=== PATIENT | female | born 1945 | race Caucasian/White ===

== ENCOUNTER 2016-09-15 13:12 | Emergency (ER) | payer OTHER, BC ==
[2016-09-15] MEDS ORDERED: LEVOFLOXACIN 500 MG TABLET (FP) PO ONE (13:29)
[2016-09-15 13:30] VITALS: BP 114/67; PULSE 97; TEMP 98.4; BMI 28.5
--- NOTE | 2016-09-15 13:35 | PDOC ---
History of Present Illness - General Chief Complaint: Pain Stated Complaint: DIFFICULT WALKING Time Seen by Provider: 09/15/16 13:25 History Source: Patient, Family Exam Limitations: No Limitations - History of Present Illness Initial Comments: 09/15/16 13:30 71-year-old female with history of coronary disease, hyperlipidemia, diabetes that is poorly controlled presents with paresthesias of bilateral feet, worse on left than right. Patient states that she has developed some tingling sensations and noticed they were particular worsen the toes. She denies injuries or cuts. States that her sugars lately been 200-300 and her doctor recommended that she see an weight clerk for likely insulin. Her hemoglobin A1c was approximately 11. Patient has started noticing paresthesias sensations in her distal feet. She wanted to see if there was any other thing to be concerned about given it had worsened the last 3 days. Denies numbness or pain. Incidentally, patient has had a chest congestion since August 30. She had taken a dose of azithromycin initially but the coughing has persisted. However, she reports that the cough overall has improved. Denies chest pain short of breath or fevers. She reports that she is not overly concerned about her cough. Past History - Past Medical History Allergies/Adverse Reactions: Allergies Allergy/AdvReac Type Severity Reaction Status Date / Time No Known Drug Allergies Allergy Verified 09/15/16 13:27 CATS Allergy Intermediate Difficulty Uncoded 04/06/14 08:16 Breathing DOGS Allergy Intermediate Difficulty Uncoded 04/06/14 08:16 Breathing NKDA Allergy Uncoded 04/06/14 08:16 Home Medications: Ambulatory Orders Atorvastatin Calcium 10 mg PO DAILY tablet 09/13/12 [place]-3 Fatty Acids [[place]-3] 1,000 mg PO DAILY 04/06/14 Albuterol Sulfate Inhaler - [Ventolin HFA Inhaler -] 1 - 2 inh PO Q4H PRN #1 inhaler 09/15/16 Levofloxacin [Levaquin] 500 mg PO DAILY #7 tablet 09/15/16 Anemia: No Asthma: Yes (ALLERGY INDUCED-CONTROLLED) Cancer: Yes (UTERINE 2001) Cardiac Disorders: No CVA: No COPD: No CHF: No Dementia: No Diabetes: Yes (2005) GI Disorders: No Disorders: Yes (INCONTINENCE) HTN: No Hypercholesterolemia: Yes Liver Disease: No Seizures: No Thyroid Disease: Yes (HYPOTHYROIDISM) - Surgical History Abdominal Surgery: Yes Appendectomy: Yes (1965) Cardiac Surgery: No Cholecystectomy: Yes (1965) Lung Surgery: No Neurologic Surgery: No Orthopedic Surgery: No - Psycho/Social/Smoking Cessation Hx Anxiety: No Suicidal Ideation: No Smoking History: Current some day smoker Have you smoked in the past 12 months: Yes Number of Cigarettes Smoked Daily: 20 If you are a former smoker, when did you quit?: 2 WEEKS AGO Hx Alcohol Use: No Drug/Substance Use Hx: No Substance Use Type: None Hx Substance Use Treatment: No Review of Systems - Review of Systems Able to Perform ROS?: Yes Comments:: 09/15/16 13:32 GENERAL/CONSTITUTIONAL: No fever, weakness. HEAD, EYES, EARS, NOSE AND THROAT: No change in vision. No ear pain or discharge. No sore throat. CARDIOVASCULAR: No chest pain or shortness of breath. RESPIRATORY: + cough. No wheezing, or hemoptysis. GASTROINTESTINAL: No abdominal pain, nausea, vomiting, diarrhea, or decreased PO intolerance. GENITOURINARY: No dysuria, frequency, or change in urination. MUSCULOSKELETAL: No joint or muscle swelling or pain. No neck or back pain. SKIN: No rash NEUROLOGIC: No headache, vertigo, loss of consciousness, or change in strength/ sensation. ENDOCRINE: No increased thirst. No abnormal weight change. bilateral feet parasthesias HEMATOLOGIC/LYMPHATIC: No anemia, easy bleeding, or history of blood clots. ALLERGIC/IMMUNOLOGIC: No hives or skin allergy. *Physical Exam - Vital Signs Last Vital Signs Temp Pulse Resp BP Pulse Ox 98.4 F 97 H 18 114/67 100 09/15/16 13:16 09/15/16 13:16 09/15/16 13:16 09/15/16 13:16 09/15/16 13:16 - Physical Exam Comments: 09/15/16 13:35 GENERAL: Awake, alert, and fully oriented, in no acute distress. HEAD: No signs of trauma EYES: PERRLA, EOMI, sclera anicteric, conjunctiva clear ENT: Auricles normal inspection, hearing grossly normal, nares patent, oropharynx clear without exudates. NECK: Normal ROM, supple, no lymphadenopathy, JVD, or masses LUNGS: Breath sounds equal, clear to auscultation bilaterally. No wheezes, and no crackles Coughing occasionally throughout our exam. HEART: Regular rate and rhythm, normal S1 and S2, no murmurs, rubs or gallops ABDOMEN: Soft, nontender, normoactive bowel sounds. No guarding, no rebound. No masses EXTREMITIES: Normal range of motion, no edema. No clubbing or cyanosis. No cords, erythema, or tenderness. Parathesias appreciated b/l toes. No tenderness elicited. 1+ DP pulses b/l. NEUROLOGICAL: Cranial nerves II through XII grossly intact. Normal speech, normal gait SKIN: Warm, Dry, normal turgor, no rashes or lesions noted. General Appearance: Yes: Nourished Medical Decision Making - Medical Decision Making 09/15/16 13:36 Vital Signs Temp Pulse Resp BP Pulse Ox 98.4 F 97 H 18 114/67 100 09/15/16 13:16 09/15/16 13:16 09/15/16 13:16 09/15/16 13:16 09/15/16 13:16 Pt overall is well-appearing. I suspect that this is likely diabetic neuropathy. Pt has an appointment with her weight clerk tomorrow. Will have her follow up with them tomorrow. Pt verbalizes understanding and agrees with plan. Pt is still coughing. However, not SOB and nontoxic and well-appearing. No fevers. Will trial albuterol prescription and levaquin and have pt follow up with PMD. Tendinitis precautions given. I discussed the physical exam findings, ancillary test results and final diagnoses with the patient. I answered all of the patient's questions. The patient was satisfied with the care received and felt comfortable with the discharge plan and treatment plan. The patient will call their primary care physician within 24 hours to arrange follow-up and will return to the Emergency Department with any new, persistant or worsening symptoms. *DC/Admit/Observation/Transfer Diagnosis at time of Disposition: Cough Diabetic neuropathy Qualifiers: Diabetes mellitus type: type 2 Diabetes mellitus complication detail: diabetic polyneuropathy Qualified Code(s): E11.42 - Type 2 diabetes mellitus with diabetic polyneuropathy - Discharge Dispostion Disposition: HOME Condition at time of disposition: Stable Admit: No - Prescriptions Prescriptions: Levofloxacin [Levaquin] 500 mg PO DAILY #7 tablet Albuterol Sulfate Inhaler - [Ventolin HFA Inhaler -] 1 - 2 inh PO Q4H PRN #1 inhaler PRN Reason: Wheezing - Patient Instructions Printed Discharge Instructions: DI for Cough -- Adult, Peripheral Neuropathy Additional Instructions: Please take 2 puffs of albuterol every 4 hours as needed for wheezing. Take the levaquin as prescribed. Follow up with your weight clerk tomorrow.
[2016-09-15] MEDS ORDERED: LEVOFLOXACIN 500 MG TABLET (FP) ONE (13:45)
== END 2016-09-15 13:53 | disposition home or self-care (01) ==
LOC: FER 13:12
DX: E11.42 Type 2 diabetes mellitus with diabetic polyneuropathy (principal); R05 Cough; J45.909 Unspecified asthma, uncomplicated; E03.9 Hypothyroidism, unspecified; E78.00 Pure hypercholesterolemia, unspecified; Z85.42 Personal history of malignant neoplasm of other parts of uterus
CPT/HCPCS: 99282-25

== ENCOUNTER 2018-01-11 14:38 | Emergency (ER) | payer OTHER, BC ==
--- NOTE | 2018-01-11 15:07 | PDOC ---
Rapid Medical Evaluation Time Seen by Provider: 01/11/18 15:05 Medical Evaluation: Allergies Allergy/AdvReac Type Severity Reaction Status Date / Time No Known Drug Allergies Allergy Verified 09/15/16 13:27 CATS Allergy Intermediate Difficulty Uncoded 04/06/14 08:16 Breathing DOGS Allergy Intermediate Difficulty Uncoded 04/06/14 08:16 Breathing NKDA Allergy Uncoded 04/06/14 08:16 01/11/18 15:05 I have performed a brief in-person evaluation of this patient. The patient presents with a chief complaint of: injury to left shoulder. Reports mis step while walking down step outside of home. Denies head strike or loc. Complaining of pain with movement Pertinent physical exam findings are: NAD even and unlabored breathing +pain with movement of left shoulder I have ordered the following: xray of left shoulder The patient will proceed to the ED for further evaluation.
[2018-01-11 15:12] VITALS: BP 146/82; PULSE 79; TEMP 97.8; BMI 34.8
--- NOTE | 2018-01-11 16:16 | PDOC ---
History of Present Illness - General Chief Complaint: Injury Stated Complaint: FALL, SHOULDER PAIN Time Seen by Provider: 01/11/18 15:05 - History of Present Illness Initial Comments: 72-year-old female with multiple medical comorbidities presents for evaluation of left shoulder pain after a fall. She states she misstepped falling onto her left shoulder. She points to the anterior aspect of the left shoulder as the area of discomfort. She denies hitting her head. No postinjury nausea, vomiting , visual changes. There was no loss of consciousness. She has pain in the left shoulder which does not radiate. 01/11/18 16:12 Past History - Past Medical History Allergies/Adverse Reactions: Allergies Allergy/AdvReac Type Severity Reaction Status Date / Time No Known Drug Allergies Allergy Verified 09/15/16 13:27 CATS Allergy Intermediate Difficulty Uncoded 04/06/14 08:16 Breathing DOGS Allergy Intermediate Difficulty Uncoded 04/06/14 08:16 Breathing NKDA Allergy Uncoded 04/06/14 08:16 Home Medications: Ambulatory Orders Atorvastatin Calcium 10 mg PO DAILY tablet 09/13/12 [place]-3 Fatty Acids [[place]-3] 1,000 mg PO DAILY 04/06/14 Albuterol Sulfate Inhaler - [Ventolin HFA Inhaler -] 1 - 2 inh PO Q4H PRN #1 inhaler 09/15/16 Levofloxacin [Levaquin] 500 mg PO DAILY #7 tablet 09/15/16 Insulin Lispro [Humalog] 100 unit SQ ASDIR vial 09/28/16 Levothyroxine Sodium 50 mcg PO DAILY tablet 09/28/16 Subcutaneous Insulin Pump [Omnipod] 1 each MC ASDIR each 09/28/16 Anemia: No Asthma: Yes (ALLERGY INDUCED-CONTROLLED) Cancer: Yes (UTERINE 2001) Cardiac Disorders: No CVA: No COPD: No CHF: No Dementia: No Diabetes: Yes (2005) GI Disorders: No Disorders: Yes (INCONTINENCE) HTN: No Hypercholesterolemia: Yes Liver Disease: No Seizures: No Thyroid Disease: Yes (HYPOTHYROIDISM) - Surgical History Abdominal Surgery: Yes Appendectomy: Yes (1965) Cardiac Surgery: No Cholecystectomy: Yes (1965) Lung Surgery: No Neurologic Surgery: No Orthopedic Surgery: No - Suicide/Smoking/Psychosocial Hx Smoking History: Never smoked Have you smoked in the past 12 months: No Number of Cigarettes Smoked Daily: 20 If you are a former smoker, when did you quit?: 2 WEEKS AGO Information on smoking cessation initiated: No Hx Alcohol Use: No Drug/Substance Use Hx: No Substance Use Type: None Hx Substance Use Treatment: No Review of Systems - Review of Systems Musculoskeletal: Yes: Joint Pain *Physical Exam - Vital Signs Last Vital Signs Temp Pulse Resp BP Pulse Ox 97.8 F 79 20 146/82 100 01/11/18 15:06 01/11/18 15:06 01/11/18 15:06 01/11/18 15:06 01/11/18 15:06 - Physical Exam Comments: Left shoulder skin: Temperature are normal. Range of motion and internal and external rotation is limited secondary to pain. Upper extremity compartments are soft and nontender. There is a mild amount of tenderness about the anterior aspect of the left shoulder she is neurovascular intact. 01/11/18 16:13 Medical Decision Making - Medical Decision Making 01/11/18 16:13 X-rays of the left shoulder show no evidence of fracture trauma destructive process there is an insulin-delivery device on the skin that viewable on radiograph today. *DC/Admit/Observation/Transfer Diagnosis at time of Disposition: Contusion, shoulder /upper arm - Discharge Dispostion Disposition: HOME Condition at time of disposition: Stable Decision to Admit order: No - Referrals Referrals: Mickey Gamboa MD [Staff Physician] - - Patient Instructions Printed Discharge Instructions: Contusion Additional Instructions: Return to the emergency room should symptoms worsen or go unresolved. Please follow-up with orthopedic surgery in one to 2 days for further evaluation and treatment options of your left shoulder contusion. Your x-rays were negative today. He may use a sling for comfort however please remove the sling for sleep hygiene and to move the shoulder as gently as you can tolerate multiple times a day as well as her elbow. - Post Discharge Activity
[2018-01-11] MEDS ORDERED: ACETAMINOPHEN 500 MG TABLET (FP) PO ONE (16:20)
[2018-01-11] MEDS ORDERED: ACETAMINOPHEN 500 MG TABLET (FP) ONE (16:29)
== END 2018-01-11 16:39 | disposition home or self-care (01) ==
LOC: JERFT 14:38
DX: S40.012A Contusion of left shoulder, initial encounter (principal); W10.8XXA Fall (on) (from) other stairs and steps, initial encounter; Y93.89 Activity, other specified; Y92.038 Other place in apartment as the place of occurrence of the external cause; Y99.8 Other external cause status; E11.9 Type 2 diabetes mellitus without complications; Z79.4 Long term (current) use of insulin; E03.9 Hypothyroidism, unspecified; Z85.42 Personal history of malignant neoplasm of other parts of uterus; Z90.49 Acquired absence of other specified parts of digestive tract
CPT/HCPCS: 73030-TC-LT-FY; 99281-25

== ENCOUNTER 2019-01-02 22:00 | Inpatient (IN) | payer OTHER, BC ==
--- NOTE | 2019-01-02 22:47 | PDOC ---
History of Present Illness - General Stated Complaint: FALL Time Seen by Provider: 01/02/19 22:45 Past History - Past Medical History Allergies/Adverse Reactions: Allergies Allergy/AdvReac Type Severity Reaction Status Date / Time No Known Drug Allergies Allergy Verified 01/02/19 22:53 CATS Allergy Intermediate Difficulty Uncoded 01/02/19 22:53 Breathing DOGS Allergy Intermediate Difficulty Uncoded 01/02/19 22:53 Breathing NKDA Allergy Uncoded 01/02/19 22:53 Home Medications: Ambulatory Orders Atorvastatin Calcium 20 mg PO DAILY tablet 09/13/12 [place]-3 Fatty Acids [[place]-3] 1,000 mg PO DAILY 04/06/14 Insulin Lispro [Humalog] 100 unit SQ ASDIR vial 09/28/16 Levothyroxine Sodium 50 mcg PO DAILY tablet 09/28/16 Fenofibrate,Micronized [Fenofibrate] 135 mg PO DAILY 01/03/19 Gabapentin 300 mg PO HS MDD 1-2 01/03/19 Isosorbide Mononitrate [Isosorbide Mononitrate ER] 30 mg PO DAILY 01/03/19 Metoprolol Tartrate 25 mg PO BID 01/03/19 Pioglitazone HCl [Actos] 15 mg PO DAILY 01/03/19 Zolpidem Tartrate [Ambien] 5 mg PO HS 01/03/19 traZODone HCL [Trazodone HCl] 100 mg PO HS 01/03/19 Lactobacillus Acidophilus [Bacid -] 1 tab PO DAILY #30 tab 01/06/19 Silver Sulfadiazine 1% Top Cr [Silvadene -] 1 applic TP DAILY #1 jar 01/06/19 oxyCODONE HCL [Roxicodone -] 5 mg PO Q3H PRN #24 tablet MDD 40 01/06/19 oxyCODONE HCL [Roxicodone -] 10 mg PO Q3H PRN #24 tablet MDD 80 01/06/19 Anemia: No Asthma: Yes (ALLERGY INDUCED-CONTROLLED) Cancer: Yes (UTERINE 2001) Cardiac Disorders: No CVA: No COPD: No CHF: No Dementia: No Diabetes: Yes (2005) GI Disorders: No Disorders: Yes (INCONTINENCE) HTN: No Hypercholesterolemia: Yes Liver Disease: No Seizures: No Thyroid Disease: Yes (HYPOTHYROIDISM) - Surgical History Abdominal Surgery: Yes Appendectomy: Yes (1965) Cardiac Surgery: No Cholecystectomy: Yes (1965) Lung Surgery: No Neurologic Surgery: No Orthopedic Surgery: No - Psycho Social/Smoking Cessation Hx Smoking History: Never smoked Have you smoked in the past 12 months: No Number of Cigarettes Smoked Daily: 20 If you are a former smoker, when did you quit?: 2 WEEKS AGO Hx Alcohol Use: No Drug/Substance Use Hx: No Substance Use Type: None Hx Substance Use Treatment: No ED Treatment Course - LABORATORY CBC & Chemistry Diagram: 01/06/19 08:00 01/06/19 08:00 Medical Decision Making - Medical Decision Making 01/03/19 23:02 HPI: 73yo F hx uterine CA, hypothyroidism, DM, incontinence, CAD, HLD, asthma, CAD, and L shoulder rotator cuff injury BIBA c/o R shoulder pain s/p mechanical fall at approx 2000 today, unable to get up on own, usually walks with walker but did not use today. Denies head injury, LOC, blood thinner use, back pain, neck pain, other injuries or pains, preceding CP or palpitations or dizziness or seizure-like activity. Endorses chronic leg swelling and chronic b/l anterior gomes cellulitis x20yrs managed by PCP (tried multiple abx, now just manages without abx). Denies fever, chills, fatigue, headache, dizziness, numbness/ tingling, weakness, vision changes, shortness of breath, cough, chest pain, palpitations, abdominal pain, blood in stool, diarrhea, constipation, nausea, vomiting, dysuria, hematuria, confusion. PCP - Milind Rodriguez. ROS: Constitutional: Negative for chills, fever, fatigue, diaphoresis. HENT: Negative for sore throat, rhinorrhea, congestion. Eyes: Negative for visual disturbance. Respiratory: Negative for shortness of breath, cough, and wheezing. Cardiovascular: Negative for chest pain, palpitations, and leg swelling. Gastrointestinal: Negative for abdominal pain, blood in stool, constipation, diarrhea, nausea, and vomiting. Genitourinary: Negative for dysuria, flank pain, and hematuria. Musculoskeletal: Positive for b/l shoulder pain. Negative for myalgias, back pain, and neck pain. Skin: Positive for b/l gomes cellulitis. Negative for rash. Neurological: Negative for light-headedness, dizziness, vertigo, syncope, weakness, numbness and headaches. Psychiatric/Behavioral: Negative for behavioral problems and confusion. PE: Gen: Alert, NAD, uncomfortable-appearing 2/2 pain, sling in place on RUE, obese , tall HEENT: PERRL, EOMI, MMM, NCAT. No conjunctival pallor. Sclera are non-icteric. CV: Regular rate and rhythm. No murmurs, rubs, or gallops. PULM: No resp distress. CTAB, no wheezes, rales, or rhonchi. ABD: soft, NT/ND, no rebound tenderness or guarding, no CVA tenderness. MSK: No bony deformities. 2+ pulses in all extremities. RUE: +TTP diffusely R shoulder and R proximal humerus, no TTP of elbow/forearm/ wrist/hand, full ROM of hand and fingers, unable to move shoulder 2/2 pain, sensation to light touch intact throughout, 2+ pulses, <2 sec cap refill. NEURO: AAOx3. PERRL. No gross CN deficits. Strength and sensation grossly intact throughout. EXTREMITIES: No cyanosis. No clubbing. No edema. No calf tenderness. PSYCH: Normal mood and thought pattern. SKIN: Warm and dry. Normal capillary refill. No rashes. No jaundice. MDM: 73yo F multiple comorbidities including L shoulder rotator cuff injury presenting with R shoulder pain s/p mechanical fall at approx 2000 today, unable to get up on own, usually walks with walker but did not use today. No head injury, LOC, blood thinner use, other injuries or pains. -R shoulder XR -Tylenol, morphine -Dispo: pending XR 01/03/19 01:12 XR: R proximal humeral neck fracture with displacement Additional morphine for continued pain. Call placed to orthopedic sheet metal production worker. CT ordered. Will admit for fx and inability to ambulate or take care of self with 2 injured arms (normally walks with walker). 01/03/19 01:23 MBMD sent to hospitalist. 01/03/19 01:33 Spoke with Orthopedist sheet metal production worker. Will see pt here in AM. No further recs. Admission/pre-op orders placed. 01/03/19 03:51 Signed out to admitting team. Discharge - Discharge Information Problems reviewed: Yes Clinical Impression/Diagnosis: Right humeral fracture, Inability to perform activities of daily living Condition: Stable Disposition: [facility]ILITY - Admission Yes - Follow up/Referral - Patient Discharge Instructions - Post Discharge Activity
[2019-01-02 22:58] VITALS: BMI 34.8
[2019-01-02] MEDS ORDERED: ACETAMINOPHEN 500 MG TABLET (FP) PO ONE (23:00)
[2019-01-02] MEDS ORDERED: ACETAMINOPHEN 325 MG TABLET (FP) ONE (23:13)
[2019-01-02] MEDS ORDERED: morphine CARPU-JECT 2 MG/1 ML DISP.SYRIN IM ONE (23:18)
[2019-01-02] MEDS ORDERED: morphine CARPU-JECT 2 MG/1 ML DISP.SYRIN IVPUSH ONE (23:24)
[2019-01-02] MEDS ORDERED: MORPHINE SULFATE 2 MG/ML VIAL ONE (23:48)
[2019-01-03] MEDS ORDERED: morphine CARPU-JECT 2 MG/1 ML DISP.SYRIN IVPUSH ONE (00:50)
[2019-01-03] MEDS ORDERED: MORPHINE SULFATE 2 MG/ML VIAL ONE (01:07)
[2019-01-03] MEDS ORDERED: morphine CARPU-JECT 4 MG/1 ML DISP.SYRIN IVPUSH ONE (01:41)
--- NOTE | 2019-01-03 01:59 | PN ---
Teaching Attending Note Name of Resident: Aniyah Krishnan ATTENDING PHYSICIAN STATEMENT I saw and evaluated the patient. I reviewed the resident's note and discussed the case with the resident. I agree with the resident's findings and plan as documented. SUBJECTIVE: 68 year-old woman with a PMH of HTN, HLD, NIDDM, asthma, hypothyroidism, uterine cancer s/p hysterectomy, chemo, radiation therapy, injury to left shoulder, former smoker reported mechanical fall on 01/02 about 630pm, landed on her right shoulder and felt severe pain. She denied any LOC, head trauma OBJECTIVE: Last Vital Signs Temp Pulse Resp BP Pulse Ox 98.8 F 88 17 138/79 98 01/02/19 22:00 01/02/19 22:00 01/02/19 22:00 01/02/19 22:00 01/02/19 22:00 gen -nad, nontoxic heent -atraumatic neck supple cv-s1+s2+rrr chest clear ext -right arm in slight, tender proximal humerus, sensation intact in right arm . RIght wrist no tenderness Abnormal Lab Results 01/03/19 03:00 BUN 38.1 H Creatinine 1.5 H Random Glucose 188 H xray right shoulder/humerus reviewed- XR: R proximal humeral neck fracture with displacement ASSESSMENT AND PLAN: right humerus neck fracture s/p fall/ trauma- no neuro or vascular compromise suspected. Dr. Dwyer was notified -admit to med/surg -right arm in sling -check sensation of right upper extremity and pulses periodically -ortho consult - Dr. Dwyer -dvt prophylaxis -keep npo -preo-op labs -ekg -fall precautions -bed rest -check orhtostatics -PT evaluation #Hypothyroidism -check tsh, c/w home dose synthroid # Uncontrolled Hyperglycemia -novolog sliding scale -a1c #NEETA -iv fluid hydration
--- NOTE | 2019-01-03 02:46 | PDOC ---
Documentation entered by Yuki Car SCRIBE, acting as scribe for Selena Chopra MD. Selena Chopra MD: This documentation has been prepared by the Josep crouch Brenda, SCRIBE, under my direction and personally reviewed by me in its entirety. I confirm that the documentation accurately reflects all work, treatment, procedures, and medical decision making performed by me. Attending Attestation - Resident Resident Name: Cecily Wilson - ED Attending Attestation I have performed the following: I have examined & evaluated the patient, The case was reviewed & discussed with the resident, I agree w/resident's findings & plan, Exceptions are as noted - HPI HPI: 01/02/19 23:30 The patient is a 73 year old female, with a significant PMH of multiple medical comorbidities, who presents to the emergency department today after a mechanical fall, and is now complaining of right shoulder pain. Patient notes that she usually uses a walker, but did not today, and fell hard on her right shoulder. The patient denies chest pain, shortness of breath, headache and dizziness. Denies fever, chills, and any GI symptoms. Denies any urinary symptoms. Allergies: NKA Past surgical history: Cholecystectomy, Appendectomy Social history: Former smoker. No alcohol use or illicit drug use. PCP: Jennifer - Physicial Exam PE: 01/03/19 02:25 tall 73 yo female BIBA s/p tripping and falling on her rt side and has left shoulder deformity 01/03/19 02:41 head ncat neck no midline cervical vertebral tenderness lungs cta b/l left shoulder deformity,ulnar and radial pulses intact,sensation intact cvs [id number] abd protuberant neuro a xox3 - Medical Decision Making 01/03/19 02:45 case discussed w ortho Dr Hernan Dwyer pt being admitted to med/surg left displaced humerus fracture/placed in sling
--- NOTE | 2019-01-03 03:37 | HP ---
CHIEF COMPLAINT: RUE pain PCP:Dr. Rodriguez HISTORY OF PRESENT ILLNESS: 73 y.o. F PMH DM2, uterine CA s/p PABLO, HTN, HLD, hypothyroidism, asthma, incontinence, L rotator cuff tear s/p 3x repairs, L eye blindness, vertigo presenting s/p mechanical fall. Patient says she was at home when she slipped and fell-- was not dizzy at the time of fall, asymptomatic, just lost her balance. Patient says she did not hit her head and never lost consciousness. Patient was down on the ground for "what seemed like hours" before her neighbor heard her screaming for help. She has had a few episodes of falls in the recent past. 1 week ago pt's doctor Dr. Rosenberg (of ENT/allergy practice?) d/c'd her meclizine because she was feeling dizzy on the medication-- dizziness subsided once meclizine was stopped. ROS: + incontinent, but did not have incontinence at time of fall. RLE calf tenderness Denies CP/ SOB/ palpitations/ FUENTES/ fevers/ N/V/D/ chills. ER course was notable for: (1) morphine mg x 2 doses, 975 mg tylenol PO (2) RUE XR-- proximal humerus fracture (3) Recent Travel: denies PAST MEDICAL HISTORY: as per HPI PAST SURGICAL HISTORY: PABLO, cholecystectomy, appendectomy, L rotator cuff repair x3 Social History: lives alone, son helps out frequently Smoking: smoked in the past, quit many years ago Alcohol: denies Drugs: denies Allergies No Known Drug Allergies Allergy (Verified 01/02/19 22:53) CATS Allergy (Intermediate, Uncoded 01/02/19 22:53) Difficulty Breathing DOGS Allergy (Intermediate, Uncoded 01/02/19 22:53) Difficulty Breathing NKDA Allergy (Uncoded 01/02/19 22:53) Family Hx: Mom & younger sister of colon CA; dad had CHF & DM HOME MEDICATIONS: Home Medications Medication Instructions Recorded Atorvastatin Calcium 10 mg PO DAILY tablet 09/13/12 [place]-3 Fatty Acids [[place]-3] 1,000 mg PO DAILY 04/06/14 Albuterol Sulfate Inhaler - 1 - 2 inh PO Q4H PRN #1 inhaler 09/15/16 [Ventolin HFA Inhaler -] Levofloxacin [Levaquin] 500 mg PO DAILY #7 tablet 09/15/16 Insulin Lispro [Humalog] 100 unit SQ ASDIR vial 09/28/16 Levothyroxine Sodium 50 mcg PO DAILY tablet 09/28/16 Subcutaneous Insulin Pump [Omnipod] 1 each MC ASDIR each 09/28/16 Fenofibrate,Micronized 135 mg PO DAILY 01/03/19 [Fenofibrate] Gabapentin 300 mg PO HS MDD 1-2 01/03/19 Isosorbide Mononitrate [Isosorbide 30 mg PO DAILY 01/03/19 Mononitrate ER] Meclizine HCl 12.5 mg PO TID 01/03/19 Metoprolol Tartrate 25 mg PO BID 01/03/19 Pioglitazone HCl [Actos] 15 mg PO DAILY 01/03/19 Zolpidem Tartrate [Ambien] 5 mg PO HS 01/03/19 traZODone HCL [Trazodone HCl] 100 mg PO HS 01/03/19 REVIEW OF SYSTEMS CONSTITUTIONAL: Absent: fever, chills, diaphoresis, generalized weakness, malaise, loss of appetite, weight change HEENT: Absent: rhinorrhea, nasal congestion, throat pain, throat swelling, difficulty swallowing, mouth swelling, ear pain, eye pain, visual changes CARDIOVASCULAR: Absent: chest pain, syncope, palpitations, irregular heart rate, lightheadedness , peripheral edema RESPIRATORY: Absent: cough, shortness of breath, dyspnea with exertion, orthopnea, wheezing, stridor, hemoptysis GASTROINTESTINAL: Absent: abdominal pain, abdominal distension, nausea, vomiting, diarrhea, constipation, melena, hematochezia GENITOURINARY: Absent: dysuria, frequency, urgency, hesitancy, hematuria, flank pain, genital pain MUSCULOSKELETAL: Absent: myalgia, arthralgia, joint swelling, back pain, neck pain SKIN: Absent: rash, itching, pallor HEMATOLOGIC/IMMUNOLOGIC: Absent: easy bleeding, easy bruising, lymphadenopathy, frequent infections ENDOCRINE: Absent: unexplained weight gain, unexplained weight loss, heat intolerance, cold intolerance NEUROLOGIC: Absent: headache, focal weakness or paresthesias, dizziness, unsteady gait, seizure, mental status changes, bladder or bowel incontinence PSYCHIATRIC: Absent: anxiety, depression, suicidal or homicidal ideation, hallucinations. PHYSICAL EXAMINATION Vital Signs - 24 hr 01/02/19 22:00 Temperature 98.8 F Pulse Rate 88 Respiratory 17 Rate Blood Pressure 138/79 O2 Sat by Pulse 98 Oximetry (%) GENERAL: Awake, alert, and fully oriented, in no acute distress. HEENT: NCAT. MMM. Sclera anicteric. LUNGS: Breath sounds equal, clear to auscultation bilaterally. No wheezes, and no crackles. No accessory muscle use. CHEST: Regular rate and rhythm, normal S1 and S2 without murmur, rub or gallop. Insulin pod placed to left chest. ABDOMEN: Soft, nontender, not distended, normoactive bowel sounds, no guarding, no rebound, no masses. No hepatomegaly or splenomegaly. MUSCULOSKELETAL: Diminshed ROM & pain to RUE d/t fracture UPPER EXTREMITIES: 2+ pulses, warm, well-perfused. No cyanosis. No clubbing. No peripheral edema. LOWER EXTREMITIES: B/l LE cellulitis on anterior shins. LE's warm to touch, + weeping. RLE posterior weeping sore noted. LLE 5th digit healing scab. 2+ pulses present b/l LE. 1+ pitting edema. Calf tenderness RLE. PSYCHIATRIC: Cooperative. Good eye contact. Appropriate mood and affect. Laboratory Results - last 24 hr 01/03/19 02:58 POC Glucometer 187 ASSESSMENT/PLAN: 73 y.o. F PMH DM2, uterine CA s/p PABLO, HTN, HLD, hypothyroidism, asthma, incontinence, L rotator cuff tear s/p 3x repairs, L eye blindness, vertigo presenting s/p fall. #Right humerus fx s/p mechanical fall -R arm placed in sling -S/p morphine 4mg total & 975mg tylenol PO for pain control -Ortho consulted- Dr. Dwyer-- pre-op labs ordered -Vitals stable; continue to monitor -Frequent RUE pulse checks -Fall precautions -Pt unable to stand for orthostatics-- f/u PT #B/l LE cellulitis -Afebrile, normocardic -F/u labs -Abx clindamycin 600mg IV 1 dose ordered #Uncontrolled DM -Pt has insulin omnipod placed -F/u A1c -ISS -BGMs -holding home oral agents #NEETA -Cr 1.5-- last cr was in 2015 0.9 -gentle hydration w/ NS 50mL hr -avoid nephrotoxic medications #HTN - C/w home meds: isosorbide mononitrate 30mg PO daily, metoprolol 25mg PO BID, ramipril 2.5mg PO daily #HLD -c/w atorvastatin 10mg PO daily -c/w fenofibrate #Hypothyroidism -c/w synthroid 50mcg PO daily -F/u TSH #Bladder incontinence -C/w Gabapentin 300mg PO at bedtime #FEN -gentle hydration w/ NS 50mL hr -monitor lytes -NPO #DVT PPX -holding AC in setting of possible OR in AM -f/u LE U/s #Dispo med surg Visit type - Emergency Visit Emergency Visit: Yes ED Registration Date: 01/03/19 Care time: The patient presented to the Emergency Department on the above date and was hospitalized for further evaluation of their emergent condition. - New Patient This patient is new to me today: Yes Date on this admission: 01/03/19 - Critical Care Critical Care patient: No ATTENDING PHYSICIAN STATEMENT I saw and evaluated the patient. I reviewed the resident's note and discussed the case with the resident. I agree with the resident's findings and plan as documented. SUBJECTIVE: OBJECTIVE: ASSESSMENT AND PLAN:
[2019-01-03 03:43] LABS: BASO % 0.6 % (0-2.0); EOS % 1.2 % (0-4.5); HEMATOCRIT 34.6 % (32.4-45.2); HEMOGLOBIN 11.6 GM/dL (10.7-15.3); MCH 29.5 pg (25.7-33.7); MCHC 33.4 g/dl (32.0-36.0); MEAN CELL VOLUME 88.1 fl (80-96); MEAN PLT VOLUME 7.9 fl (7.5-11.1); MONO % 6.9 % (3.8-10.2); NEUT % 71.3 % (42.8-82.8); PLATELET COUNT 205 K/MM3 (134-434); RBC 3.92 M/mm3 (3.60-5.2); RDW 15.1 % (11.6-15.6); WHITE BLOOD COUNT 9.4 K/mm3 (4.0-10.0)
[2019-01-03 03:56] LABS: INR 1.03 (0.83-1.09); PROTHROMBIN TIME (PATIENT) 12.1 SEC (9.7-13.0)
[2019-01-03 04:03] LABS: ALBUMIN 3.8 g/dl (3.4-5.0); BILIRUBIN,TOTAL 0.4 mg/dL (0.2-1); BLOOD UREA NITROGEN 38.1 mg/dL (7-18); CALCIUM 9.1 mg/dL (8.5-10.1); CREATININE 1.5 mg/dL (0.55-1.3); TOT PROT 6.8 g/dl (6.4-8.2)
[2019-01-03] MEDS ORDERED: SUBCUTANEOUS INSULIN PUMP MC SCH (04:15)
[2019-01-03] MEDS ORDERED: CLINDAMYCIN 600MG PREMIX IVPB 600 MG/50 ML BAG IVPB ONE ×2 (05:19→05:38)
[2019-01-03] MEDS: SODIUM CHLORIDE 1,000 ML IV SCH (06:27)
[2019-01-03] MEDS: INSULIN SLIDING SCALE (NOVOLOG) 1 VIAL SQ SCH ×4 (08:19→22:31)
[2019-01-03] MEDS ORDERED: LEVOTHYROXINE NA 25 MCG TABLET (FP) ONE (08:21)
[2019-01-03] MEDS ORDERED: INSULIN (NOVOLOG) ASPART 100 UNITS/ML 10ML VIAL ONE ×2 (08:21→22:16)
[2019-01-03] MEDS: LEVOTHYROXINE NA 50 MCG TABLET (FP) PO SCH (08:33)
[2019-01-03] MEDS: ISOSORBIDE MONONITRATE 30 MG TAB.SR.24H (FP) PO SCH (09:58)
[2019-01-03] MEDS: OMEGA-3 ACID ETHYL ESTERS (FATTY-ACIDS) 1 GM CAPSULE (FP) PO SCH ×2 (09:58→23:29)
[2019-01-03] MEDS: NITROFURANTOIN MACROCRYSTAL 50 MG CAPSULE (FP) PO SCH (09:58)
[2019-01-03] MEDS: RAMIPRIL 2.5 MG CAPSULE (FP) PO SCH (09:58)
[2019-01-03] MEDS: METOPROLOL TARTRATE 25 MG TABLET (FP) PO SCH ×2 (09:58→22:31)
[2019-01-03] MEDS: FENOFIBRIC ACID 135 MG CAP PO SCH (09:59)
[2019-01-03] MEDS ORDERED: CEPHALEXIN MONOHYDRATE 500 MG CAPSULE (UD) PO SCH (10:00)
[2019-01-03] MEDS ORDERED: FENOFIBRATE MICRONIZED PO SCH (10:00)
[2019-01-03] MEDS ORDERED: PATIENT'S OWN MEDICATION (NON-FORMULARY) (Omega-3 Fatty Acids [Omega-3] 1,000 MG) PO SCH (10:00)
[2019-01-03 11:30] LABS: EPI CELLS 3.7 /HPF (0-5/HPF); HYALINE CASTS 4 /lpf (0-8); URINE APPEARANCE CLEAR; URINE BILIRUBIN NEGATIVE (NEGATIVE); URINE COLOR YELLOW; URINE GLUCOSE (UA) TRACE (NEGATIVE); URINE KETONE NEGATIVE (NEGATIVE); URINE LEUK ESTERASE TRACE (NEGATIVE); URINE NITRITE POSITIVE (NEGATIVE); URINE PROTEIN NEGATIVE (NEGATIVE); URINE RBC 1 /hpf (0-4); URINE UROBILINOGEN 0.2 mg/dL (0.2-1.0); URINE WBC 2 /hpf (0-5)
--- NOTE | 2019-01-03 12:05 | EKG ---
Test Reason : Blood Pressure : / mmHG Vent. Rate : 077 BPM Atrial Rate : 077 BPM P-R Int : 156 ms QRS Dur : 072 ms QT Int : 394 ms P-R-T Axes : 015 006 012 degrees QTc Int : 445 ms SINUS RHYTHM WITH MARKED SINUS ARRHYTHMIA OTHERWISE NORMAL ECG WHEN COMPARED WITH ECG OF 06-APR-2014 09:11, PREMATURE ATRIAL COMPLEXES ARE NO LONGER PRESENT NONSPECIFIC T WAVE ABNORMALITY NO LONGER EVIDENT IN LATERAL LEADS Confirmed by Jamin Clark ([id number]) on 01/03/2019 12:04:59 PM Referred By: Confirmed By:Jamin Clark
[2019-01-03 13:26] LABS: HEMATOCRIT 32.9 % (32.4-45.2); MCH 29.2 pg (25.7-33.7); MCHC 33.4 g/dl (32.0-36.0); MEAN CELL VOLUME 87.4 fl (80-96); MEAN PLT VOLUME 7.7 fl (7.5-11.1); PLATELET COUNT 201 K/MM3 (134-434); RBC 3.76 M/mm3 (3.60-5.2); RDW 15.3 % (11.6-15.6); WHITE BLOOD COUNT 8.3 K/mm3 (4.0-10.0)
[2019-01-03 14:04] LABS: ALBUMIN 3.7 g/dl (3.4-5.0); BILIRUBIN,TOTAL 0.5 mg/dL (0.2-1); BLOOD UREA NITROGEN 30.6 mg/dL (7-18); CALCIUM 8.8 mg/dL (8.5-10.1); CREATININE 1.2 mg/dL (0.55-1.3); MAGNESIUM 1.7 mg/dL (1.8-2.4); PHOSPHOROUS 3.5 mg/dL (2.5-4.9); POTASSIUM 4.8 mmol/L (3.5-5.1); TOT PROT 6.4 g/dl (6.4-8.2)
--- NOTE | 2019-01-03 16:14 | CON.ORTH ---
Consult Reason for Consultation:: right proximal humerus fx - Past Medical History Cardio/Vascular: Yes: Hyperlipdemia Pulmonary: Yes: Asthma Endocrine: Yes: Diabetes Mellitus - Alcohol/Substance Use Hx Alcohol Use: No - Smoking History Smoking history: Never smoked Have you smoked in the past 12 months: No Aproximately how many cigarettes per day: 20 If you are a former smoker, when did you quit?: 2 WEEKS AGO Home Medications - Allergies Allergies/Adverse Reactions: Allergies Allergy/AdvReac Type Severity Reaction Status Date / Time No Known Drug Allergies Allergy Verified 01/02/19 22:53 CATS Allergy Intermediate Difficulty Uncoded 01/02/19 22:53 Breathing DOGS Allergy Intermediate Difficulty Uncoded 01/02/19 22:53 Breathing NKDA Allergy Uncoded 01/02/19 22:53 - Home Medications Home Medications: Ambulatory Orders Atorvastatin Calcium 20 mg PO DAILY tablet 09/13/12 [place]-3 Fatty Acids [[place]-3] 1,000 mg PO DAILY 04/06/14 Insulin Lispro [Humalog] 100 unit SQ ASDIR vial 09/28/16 Levothyroxine Sodium 50 mcg PO DAILY tablet 09/28/16 Subcutaneous Insulin Pump [Omnipod] 1 each MC ASDIR each 09/28/16 Fenofibrate,Micronized [Fenofibrate] 135 mg PO DAILY 01/03/19 Gabapentin 300 mg PO HS MDD 1-2 01/03/19 Isosorbide Mononitrate [Isosorbide Mononitrate ER] 30 mg PO DAILY 01/03/19 Metoprolol Tartrate 25 mg PO BID 01/03/19 Pioglitazone HCl [Actos] 15 mg PO DAILY 01/03/19 Zolpidem Tartrate [Ambien] 5 mg PO HS 01/03/19 traZODone HCL [Trazodone HCl] 100 mg PO HS 01/03/19 Physical Exam for Ortho Vital Signs: Vital Signs Temperature 98.1 F 01/03/19 09:55 Pulse Rate 90 01/03/19 09:55 Respiratory Rate 18 01/03/19 09:55 Blood Pressure 137/77 01/03/19 09:55 O2 Sat by Pulse Oximetry (%) 98 01/03/19 09:55 Labs: CBC, BMP 01/03/19 13:05 01/03/19 13:05 INR, PTT INR 1.03 (0.83-1.09) 01/03/19 03:00 - Upper Extremity Shoulder: Yes: Right, Ecchymosis, Limited ROM, Pain, Swelling, Tenderness, Other (nvi) Imaging - Results X-ray: Image Reviewed Assessment/Plan 73 y.o. right hand dominant F with PMH DM2, uterine CA s/p PABLO, HTN, HLD, hypothyroidism, asthma, incontinence, L rotator cuff tear s/p repairs, L eye blindness, vertigo presenting s/p mechanical fall. Patient says she was at home when she slipped and fell-- was not dizzy at the time of fall, asymptomatic, just lost her balance. Denies any numbness or tingling. a/p right displaced proximal humerus fx Risks and benefits were d/w pt and son in detail OR for right reverse TSA tentatively for am surgical clearance npo after midnight wed d/w Dr. Dwyer
--- NOTE | 2019-01-03 16:28 | ECHO ---
Name: TOMMY REEDER Exam:Adult Echocardiogram Study Date: 01/03/2019 03:14 PM Age: 73 yrs Height: 71 in Weight: 250 lb BSA: 2.3 m2 MMode/2D Measurements & Calculations IVSd: 1.0 cm Ao root diam: 2.9 cm LVIDd: 5.2 cm LVIDs: 3.6 cm LVPWd: 0.97 cm EDV(Teich): 126.6 ml LVOT diam: 2.0 cm ESV(Teich): 52.7 ml Doppler Measurements & Calculations MV E max constance: 65.4 cm/sec Ao V2 max: 128.1 cm/sec MV A max constance: 84.5 cm/sec Ao max P.6 mmHg MV E/A: 0.77 MV dec time: 0.14 sec MARIA R(V,D): 2.3 cm2 LV V1 max P.9 mmHg TR max constance: 267.9 cm/sec LV V1 max: 98.2 cm/sec TR max P.8 mmHg Left Ventricle The left ventricular size, thickness and function are normal. Abnormal diastolic relaxation. Right Ventricle The right ventricle is normal in size and function. Atria Normal left and right atrial size and function. Mitral Valve The mitral valve is grossly normal. Tricuspid Valve The tricuspid valve is not well visualized, but is grossly normal. There is trace tricuspid regurgita tion. Aortic Valve The aortic valve is normal in structure and function. Pulmonic Valve The pulmonic valve is not well seen, but is grossly normal. Great Vessels The aortic root is not well visualized. Pericardium/Pleura There is no pericardial effusion. Interpretation Summary The left ventricular size, thickness and function are normal The right ventricle is normal in size and function. Normal left and right atrial size and function. The mitral valve is grossly normal. The tricuspid valve is not well visualized, but is grossly normal. There is trace tricuspid regurgitation. The aortic valve is normal in structure and function. The pulmonic valve is not well seen, but is grossly normal. The aortic root is not well visualized. There is no pericardial effusion. Abnormal diastolic relaxation EF 59% MD Kei Phillips 01/03/2019 04:28 PM
--- NOTE | 2019-01-03 16:40 | PN ---
Physical Exam: SUBJECTIVE: Patient seen and examined. pt complained of pain in R arm despite pain control OBJECTIVE: Vital Signs Period Temp Pulse Resp BP Sys/Jacobs Pulse Ox Last 24 Hr 98 F-98.8 F 81-90 17-20 137-142/76-79 98-100 GENERAL: The patient is awake, alert, and fully oriented, in no acute distress. HEAD: Normal with no signs of trauma. EYES: PERRL, extraocular movements intact, sclera anicteric, conjunctiva clear. No ptosis. ENT: Ears normal, nares patent, oropharynx clear without exudates, moist mucous membranes. LUNGS: Breath sounds equal, clear to auscultation bilaterally, no wheezes, no crackles, no accessory muscle use. HEART: Regular rate and rhythm, S1, S2 without murmur, rub or gallop. ABDOMEN: Soft, nontender, nondistended, normoactive bowel sounds, no guarding, no rebound, no hepatosplenomegaly, no masses. EXTREMITIES: 2+ pulses, warm, well-perfused, no edema. sling for R arm fracture. pain 6/10. pulse 2+ in RUE NEUROLOGICAL: Cranial nerves II through XII grossly intact. Normal speech, gait not observed. PSYCH: Normal mood, normal affect. SKIN: Warm, dry, normal turgor, b/l leg swelling with signs of cellulitis with serous drainage Laboratory Results - last 24 hr 01/03/19 01/03/19 01/03/19 02:58 03:00 03:00 WBC RBC Hgb Hct MCV MCH MCHC RDW Plt Count MPV Absolute Neuts (auto) Neutrophils % Lymphocytes % Monocytes % Eosinophils % Basophils % Nucleated RBC % PT with INR 12.10 INR 1.03 PTT (Actin FS) 33.0 Sodium Potassium Chloride Carbon Dioxide Anion Gap BUN Creatinine Est GFR (CKD-EPI)AfAm Est GFR (CKD-EPI)NonAf POC Glucometer 187 Random Glucose Hemoglobin A1c % Calcium Phosphorus Magnesium Total Bilirubin AST ALT Alkaline Phosphatase Creatine Kinase Creatine Kinase Index CK-MB (CK-2) Total Protein Albumin TSH Urine Color Urine Appearance Urine pH Ur Specific [place] Urine Protein Urine Glucose (UA) Urine Ketones Urine Blood Urine Nitrite Urine Bilirubin Urine Urobilinogen Ur Leukocyte Esterase Urine WBC (Auto) Urine RBC (Auto) Urine Casts (Auto) U Epithel Cells (Auto) Urine Bacteria (Auto) Blood Type Antibody Screen 01/03/19 01/03/19 01/03/19 03:00 03:00 03:00 WBC 9.4 RBC 3.92 Hgb 11.6 Hct 34.6 MCV 88.1 MCH 29.5 MCHC 33.4 RDW 15.1 Plt Count 205 D MPV 7.9 Absolute Neuts (auto) 6.7 Neutrophils % 71.3 D Lymphocytes % 20.0 D Monocytes % 6.9 Eosinophils % 1.2 D Basophils % 0.6 Nucleated RBC % 0 PT with INR INR PTT (Actin FS) Sodium 138 Potassium 5.0 Chloride 105 Carbon Dioxide 24 Anion Gap 9 BUN 38.1 H Creatinine 1.5 H Est GFR (CKD-EPI)AfAm 39.09 Est GFR (CKD-EPI)NonAf 33.73 POC Glucometer Random Glucose 188 H Hemoglobin A1c % Calcium 9.1 Phosphorus Magnesium Total Bilirubin 0.4 AST 18 ALT 17 Alkaline Phosphatase 47 Creatine Kinase 169 Creatine Kinase Index 0.8 CK-MB (CK-2) 1.5 Total Protein 6.8 Albumin 3.8 TSH Urine Color Urine Appearance Urine pH Ur Specific [place] Urine Protein Urine Glucose (UA) Urine Ketones Urine Blood Urine Nitrite Urine Bilirubin Urine Urobilinogen Ur Leukocyte Esterase Urine WBC (Auto) Urine RBC (Auto) Urine Casts (Auto) U Epithel Cells (Auto) Urine Bacteria (Auto) Blood Type O POSITIVE Antibody Screen Negative 01/03/19 01/03/19 01/03/19 08:10 09:58 12:04 WBC RBC Hgb Hct MCV MCH MCHC RDW Plt Count MPV Absolute Neuts (auto) Neutrophils % Lymphocytes % Monocytes % Eosinophils % Basophils % Nucleated RBC % PT with INR INR PTT (Actin FS) Sodium Potassium Chloride Carbon Dioxide Anion Gap BUN Creatinine Est GFR (CKD-EPI)AfAm Est GFR (CKD-EPI)NonAf POC Glucometer 153 162 Random Glucose Hemoglobin A1c % Calcium Phosphorus Magnesium Total Bilirubin AST ALT Alkaline Phosphatase Creatine Kinase Creatine Kinase Index CK-MB (CK-2) Total Protein Albumin TSH Urine Color Yellow Urine Appearance Clear Urine pH 5.0 Ur Specific [place] 1.017 Urine Protein Negative Urine Glucose (UA) Trace Urine Ketones Negative Urine Blood 2+ H Urine Nitrite Positive H Urine Bilirubin Negative Urine Urobilinogen 0.2 Ur Leukocyte Esterase Trace Urine WBC (Auto) 2 Urine RBC (Auto) 1 Urine Casts (Auto) 4 U Epithel Cells (Auto) 3.7 Urine Bacteria (Auto) 153.0 Blood Type Antibody Screen 01/03/19 01/03/19 01/03/19 12:25 13:05 13:05 WBC 8.3 RBC 3.76 Hgb 11.0 Hct 32.9 MCV 87.4 MCH 29.2 MCHC 33.4 RDW 15.3 Plt Count 201 MPV 7.7 Absolute Neuts (auto) Neutrophils % Lymphocytes % Monocytes % Eosinophils % Basophils % Nucleated RBC % PT with INR INR PTT (Actin FS) Sodium 137 Potassium 4.8 Chloride 105 Carbon Dioxide 24 Anion Gap 8 BUN 30.6 H Creatinine 1.2 Est GFR (CKD-EPI)AfAm 51.20 Est GFR (CKD-EPI)NonAf 44.17 POC Glucometer Random Glucose 173 H Hemoglobin A1c % Calcium 8.8 Phosphorus 3.5 Magnesium 1.7 L Total Bilirubin 0.5 AST 14 L ALT 16 Alkaline Phosphatase 46 Creatine Kinase Creatine Kinase Index CK-MB (CK-2) Total Protein 6.4 Albumin 3.7 TSH Urine Color Urine Appearance Urine pH Ur Specific [place] Urine Protein Urine Glucose (UA) Urine Ketones Urine Blood Urine Nitrite Urine Bilirubin Urine Urobilinogen Ur Leukocyte Esterase Urine WBC (Auto) Urine RBC (Auto) Urine Casts (Auto) U Epithel Cells (Auto) Urine Bacteria (Auto) Blood Type O POSITIVE Antibody Screen 01/03/19 01/03/19 13:05 13:05 WBC RBC Hgb Hct MCV MCH MCHC RDW Plt Count MPV Absolute Neuts (auto) Neutrophils % Lymphocytes % Monocytes % Eosinophils % Basophils % Nucleated RBC % PT with INR INR PTT (Actin FS) Sodium Potassium Chloride Carbon Dioxide Anion Gap BUN Creatinine Est GFR (CKD-EPI)AfAm Est GFR (CKD-EPI)NonAf POC Glucometer Random Glucose Hemoglobin A1c % 7.7 H Calcium Phosphorus Magnesium Total Bilirubin AST ALT Alkaline Phosphatase Creatine Kinase 161 Creatine Kinase Index No Result Required. CK-MB (CK-2) < 1.0 Total Protein Albumin TSH 2.03 Urine Color Urine Appearance Urine pH Ur Specific [place] Urine Protein Urine Glucose (UA) Urine Ketones Urine Blood Urine Nitrite Urine Bilirubin Urine Urobilinogen Ur Leukocyte Esterase Urine WBC (Auto) Urine RBC (Auto) Urine Casts (Auto) U Epithel Cells (Auto) Urine Bacteria (Auto) Blood Type Antibody Screen Active Medications Generic Name Dose Route Start Last Admin Trade Name Freq PRN Reason Stop Dose Admin Atorvastatin Calcium 20 mg 01/03/19 22:00 Lipitor - PO HS [facility] Cephalexin HCl 500 mg 01/03/19 10:00 01/03/19 09:58 Keflex - PO 500 mg BID JESÚS Administration Fenofibric Acid 135 mg 01/03/19 10:00 01/03/19 09:59 Trilipix - PO 135 mg DAILY JESÚS Administration Gabapentin 300 mg 01/03/19 22:00 Neurontin - PO HS [facility] Sodium Chloride 1,000 mls @ 50 mls/hr 01/03/19 04:15 01/03/19 06:27 Normal Saline - IV 50 mls/hr ASDIR JESÚS Administration Insulin Aspart 1 vial 01/03/19 07:00 01/03/19 11:25 Novolog Vial Sliding Scale - SQ 2 units ACHS JESÚS Administration Protocol Isosorbide Mononitrate 30 mg 01/03/19 10:00 01/03/19 09:58 Imdur - PO 30 mg DAILY JESÚS Administration Levothyroxine Sodium 50 mcg 01/03/19 07:00 01/03/19 08:33 Synthroid - PO 50 mcg ACBK JESÚS Administration Metoprolol Tartrate 25 mg 01/03/19 10:00 01/03/19 09:58 Lopressor - PO 25 mg BID JESÚS Administration Nitrofurantoin Macrocrystals 50 mg 01/03/19 10:00 01/03/19 09:58 Macrodantin - PO 50 mg DAILY JESÚS Administration Non-Formulary Medication 1 each 01/03/19 04:15 Subcutaneous Insulin Pump [Omnipod] ASDIR [facility] [id number] Ethyl Esters 2 gm 01/03/19 10:00 01/03/19 09:58 Lovaza - PO 2 gm BID JESÚS Administration Ramipril 2.5 mg 01/03/19 10:00 01/03/19 09:58 Altace - PO 2.5 mg DAILY JESÚS Administration Silver Sulfadiazine 1 applic 01/03/19 11:15 Silvadene - TP DAILY [facility] ASSESSMENT/PLAN: 73 y.o. F PMH DM2, uterine CA s/p PABLO, HTN, HLD, hypothyroidism, asthma, incontinence, L rotator cuff tear s/p 3x repairs, L eye blindness, vertigo presenting s/p fall. Right humerus fx s/p mechanical fall R arm placed in sling Ortho consulted- Dr. Dwyer-- pre-op labs ordered. OR for reverse TSA on 01/05 NPO wednesday night RUE pulse 2+; continue to monitor Fall precautions f/u PT B/l LE swelling with cellulitis leg warm drainage above ankle from poss cellulitis. US/ neg for DVT but positive for b/l alegria cyst Afebrile WBC 8.5 silvadene applied with marvin wraps Uncontrolled DM A1c 7.7 improved from previous visits but still elevated Pt has insulin omnipod placed ISS BGMs NEETA Cr 1.2 improved from admission from1.5-- last cr was in 2016 0.9 gentle hydration w/ NS 50mL hr avoid nephrotoxic medications HTN isosorbide mononitrate 30mg PO daily, metoprolol 25mg PO BID, ramipril 2.5mg PO daily HLD atorvastatin 10mg PO daily fenofibrate Hypothyroidism synthroid 50mcg PO daily TSH 2.03 Bladder incontinence Gabapentin 300mg PO at bedtime castaneda in place since patient has difficulty ambulating due to fx and has incontinence DVT PPX hep subQ until wed Visit type - Emergency Visit Emergency Visit: Yes ED Registration Date: 01/03/19 Care time: The patient presented to the Emergency Department on the above date and was hospitalized for further evaluation of their emergent condition. - New Patient This patient is new to me today: Yes Date on this admission: 01/03/19 - Critical Care Critical Care patient: No - Discharge Referral Referred to [facility] Med P.C.: No ATTENDING PHYSICIAN STATEMENT I saw and evaluated the patient. I reviewed the resident's note and discussed the case with the resident. I agree with the resident's findings and plan as documented. SUBJECTIVE: OBJECTIVE: ASSESSMENT AND PLAN:
[2019-01-03] MEDS ORDERED: SILVER SULFADIAZINE 1% TOP CREAM 50 GM JAR TP ONE (16:41)
[2019-01-03] MEDS: SILVER SULFADIAZINE 1% TOP CREAM 50 GM JAR TP SCH (16:49)
[2019-01-03] MEDS ORDERED: ACETAMINOPHEN 325 MG TABLET (FP) ONE (17:13)
[2019-01-03] MEDS ORDERED: oxyCODONE HCL 5 MG TABLET ONE (17:13)
[2019-01-03] MEDS: ACETAMINOPHEN 325 MG TABLET (FP) PO PRN ×2 (17:16→23:27)
[2019-01-03] MEDS: oxyCODONE HCL 5 MG TABLET PO PRN ×2 (17:16→23:24)
--- NOTE | 2019-01-03 20:33 | PN ---
Teaching Attending Note Name of Resident: Tina Keyes ATTENDING PHYSICIAN STATEMENT I saw and evaluated the patient. I reviewed the resident's note and discussed the case with the resident. I agree with the resident's findings and plan as documented. SUBJECTIVE: Patient is c/o having right arm pain s/p fall. OBJECTIVE: Vital Signs Temperature 98.4 F 01/03/19 19:15 Pulse Rate 85 01/03/19 19:15 Respiratory Rate 18 01/03/19 19:15 Blood Pressure 132/51 L 01/03/19 19:15 O2 Sat by Pulse Oximetry (%) 95 01/03/19 19:15 GENERAL: The patient is awake, alert, and fully oriented, in mild distress. HEAD: Normal with no signs of trauma. EYES: PERRL, extraocular movements intact, sclera anicteric, conjunctiva clear. ENT: Ears normal, oropharynx clear without exudates, moist mucous membranes. NECK: Trachea midline, full range of motion, supple. LUNGS: Breath sounds equal, clear to auscultation bilaterally, no wheezes, no crackles, no accessory muscle use. HEART: Regular rate and rhythm, S1, S2 without murmur, rub or gallop. ABDOMEN: Soft, nontender, nondistended, normoactive bowel sounds, no guarding, no rebound, no hepatosplenomegaly, no masses. EXTREMITIES: 2+ pulses, warm, well-perfused, 1+ edema bl, with mild cellulitis of LEs. Right arm in sling NEUROLOGICAL: Cranial nerves II through XII grossly intact. Normal speech, gait not observed. PSYCH: Normal mood, normal affect. SKIN: Warm, dry, normal turgor, no rashes or lesions noted CBCD WBC 8.3 K/mm3 (4.0-10.0) 01/03/19 13:05 RBC 3.76 M/mm3 (3.60-5.2) 01/03/19 13:05 Hgb 11.0 GM/dL (10.7-15.3) 01/03/19 13:05 Hct 32.9 % (32.4-45.2) 01/03/19 13:05 MCV 87.4 fl (80-96) 01/03/19 13:05 MCHC 33.4 g/dl (32.0-36.0) 01/03/19 13:05 RDW 15.3 % (11.6-15.6) 01/03/19 13:05 Plt Count 201 K/MM3 (134-434) 01/03/19 13:05 MPV 7.7 fl (7.5-11.1) 01/03/19 13:05 CMP Sodium 137 mmol/L (136-145) 01/03/19 13:05 Potassium 4.8 mmol/L (3.5-5.1) 01/03/19 13:05 Chloride 105 mmol/L (98-107) 01/03/19 13:05 Carbon Dioxide 24 mmol/L (21-32) 01/03/19 13:05 Anion Gap 8 MMOL/L (8-16) 01/03/19 13:05 BUN 30.6 mg/dL (7-18) H 01/03/19 13:05 Creatinine 1.2 mg/dL (0.55-1.3) 01/03/19 13:05 Random Glucose 173 mg/dL (74-106) H 01/03/19 13:05 Calcium 8.8 mg/dL (8.5-10.1) 01/03/19 13:05 Total Bilirubin 0.5 mg/dL (0.2-1) 01/03/19 13:05 AST 14 U/L (15-37) L 01/03/19 13:05 ALT 16 U/L (13-61) 01/03/19 13:05 Alkaline Phosphatase 46 U/L (45-117) 01/03/19 13:05 Total Protein 6.4 g/dl (6.4-8.2) 01/03/19 13:05 Albumin 3.7 g/dl (3.4-5.0) 01/03/19 13:05 CARDIAC ENZYMES Creatine Kinase 161 U/L (26-192) 01/03/19 13:05 Current Medications Generic Name Dose Route Start Last Admin Trade Name Freq PRN Reason Stop Dose Admin Acetaminophen 650 mg 01/03/19 16:44 01/03/19 17:16 Tylenol - PO 650 mg Q4H PRN Administration PAIN LEVEL 4 - 6 Atorvastatin Calcium 20 mg 01/03/19 22:00 Lipitor - PO HS JESÚS Cephalexin HCl 500 mg 01/03/19 10:00 01/03/19 09:58 Keflex - PO 500 mg BID JESÚS Administration Fenofibric Acid 135 mg 01/03/19 10:00 01/03/19 09:59 Trilipix - PO 135 mg DAILY JESÚS Administration Gabapentin 300 mg 01/03/19 22:00 Neurontin - PO HS JESÚS Heparin Sodium (Porcine) 5,000 unit 01/03/19 22:00 Heparin - SQ TID JESÚS Sodium Chloride 1,000 mls @ 50 mls/hr 01/03/19 04:15 01/03/19 06:27 Normal Saline - IV 50 mls/hr ASDIR JESÚS Administration Insulin Aspart 1 vial 01/03/19 07:00 01/03/19 17:02 Novolog Vial Sliding Scale - SQ 4 units ACHS JESÚS Administration Protocol Isosorbide Mononitrate 30 mg 01/03/19 10:00 01/03/19 09:58 Imdur - PO 30 mg DAILY JESÚS Administration Levothyroxine Sodium 50 mcg 01/03/19 07:00 01/03/19 08:33 Synthroid - PO 50 mcg ACBK JESÚS Administration Metoprolol Tartrate 25 mg 01/03/19 10:00 01/03/19 09:58 Lopressor - PO 25 mg BID JESÚS Administration Nitrofurantoin Macrocrystals 50 mg 01/03/19 10:00 01/03/19 09:58 Macrodantin - PO 50 mg DAILY JESÚS Administration Non-Formulary Medication 1 each 01/03/19 04:15 Subcutaneous Insulin Pump [Omnipod] MC ASDIR JESÚS [id number] Ethyl Esters 2 gm 01/03/19 10:00 01/03/19 09:58 Lovaza - PO 2 gm BID JESÚS Administration Oxycodone HCl 5 mg 01/03/19 16:44 01/03/19 17:16 Roxicodone - PO 5 mg Q4H PRN Administration PAIN LEVEL 6-10 Ramipril 2.5 mg 01/03/19 10:00 01/03/19 09:58 Altace - PO 2.5 mg DAILY JESÚS Administration Silver Sulfadiazine 1 applic 01/03/19 11:15 01/03/19 16:49 Silvadene - TP 1 applic DAILY JESÚS Administration Home Medications Medication Instructions Recorded Atorvastatin Calcium 20 mg PO DAILY tablet 09/13/12 [place]-3 Fatty Acids [[place]-3] 1,000 mg PO DAILY 04/06/14 Insulin Lispro [Humalog] 100 unit SQ ASDIR vial 09/28/16 Levothyroxine Sodium 50 mcg PO DAILY tablet 09/28/16 Subcutaneous Insulin Pump [Omnipod] 1 each MC ASDIR each 09/28/16 Fenofibrate,Micronized 135 mg PO DAILY 01/03/19 [Fenofibrate] Gabapentin 300 mg PO HS MDD 1-2 01/03/19 Isosorbide Mononitrate [Isosorbide 30 mg PO DAILY 01/03/19 Mononitrate ER] Metoprolol Tartrate 25 mg PO BID 01/03/19 Pioglitazone HCl [Actos] 15 mg PO DAILY 01/03/19 Zolpidem Tartrate [Ambien] 5 mg PO HS 01/03/19 traZODone HCL [Trazodone HCl] 100 mg PO HS 01/03/19 ASSESSMENT AND PLAN: Patient is a 73yo female with PMHx of DM2, uterine CA s/p PABLO, HTN, HLD, hypothyroidism, asthma, incontinence, L rotator cuff tear s/p repair, L eye blindness, vertigo presenting s/p fall with Fx of right humurus fx # Acute Right humerus fx s/p mechanical fall: Ortho sling # B/l LE swelling with cellulitis: on IV abx continue # Uncontrolled DM: SS with coverage # NEETA: improving #HTN: continue current regimen #HLD : continue lipitor #Hypothyroidism: continue home levoxyl DVT PPX: hep sq Call pharmacy to confirm the meds. in am
[2019-01-03] MEDS ORDERED: CEFAZOLIN 1 GM/D5W 1 GM/50 ML BAG ONE (21:41)
[2019-01-03] MEDS: CEFAZOLIN 1 GM in DEXTROSE 5%-WATER - 50 ML IVPB SCH (21:58)
[2019-01-03] MEDS ORDERED: ATORVASTATIN CA 10 MG TABLET (FP) PO SCH (22:00)
[2019-01-03] MEDS ORDERED: METOPROLOL TARTRATE 25 MG TABLET (FP) ONE (22:15)
[2019-01-03] MEDS ORDERED: ATORVASTATIN CA 20 MG TABLET (FP) ONE (22:15)
[2019-01-03] MEDS ORDERED: GABAPENTIN 100 MG CAPSULE (FP) ONE (22:16)
[2019-01-03] MEDS ORDERED: HEPARIN NA (PORCINE) 5,000 UNITS/ML 1ML VIAL ONE (22:16)
[2019-01-03] MEDS: GABAPENTIN 300 MG CAPSULE (FP) PO SCH (22:31)
[2019-01-03] MEDS: ATORVASTATIN CA 20 MG TABLET (FP) PO SCH (22:31)
[2019-01-03] MEDS: HEPARIN NA (PORCINE) 5,000 UNITS/ML 1ML VIAL SQ SCH (22:31)
[2019-01-04] MEDS ORDERED: ceFAZolin SODIUM 1 GM VIAL ONE ×3 (01:16→17:17)
[2019-01-04] MEDS ORDERED: DEXTROSE 5%-WATER - 50 ML IVPB ONE ×3 (01:17→17:18)
[2019-01-04] MEDS: CEFAZOLIN 1 GM in DEXTROSE 5%-WATER - 50 ML IVPB SCH ×3 (01:50→17:38)
[2019-01-04] MEDS: SODIUM CHLORIDE 1,000 ML IV SCH ×2 (02:14→06:33)
[2019-01-04] MEDS: oxyCODONE HCL 5 MG TABLET PO PRN ×5 (04:28→23:28)
[2019-01-04] MEDS: LEVOTHYROXINE NA 50 MCG TABLET (FP) PO SCH (06:36)
[2019-01-04] MEDS: HEPARIN NA (PORCINE) 5,000 UNITS/ML 1ML VIAL SQ SCH ×2 (06:36→14:21)
[2019-01-04] MEDS: INSULIN SLIDING SCALE (NOVOLOG) 1 VIAL SQ SCH ×4 (06:40→22:40)
--- NOTE | 2019-01-04 09:28 | PN ---
Progress Note (short form) - Note Progress Note: Ortho Pt seen and examined s/p right displaced proximal humerus fx Selected Entries 01/04/19 07:45 Temperature 98.2 F Pulse Rate 81 Respiratory 18 Rate Blood Pressure 157/59 L Laboratory Tests 01/03/19 13:05 WBC 8.3 Hgb 11.0 Hct 32.9 Plt Count 201 + swelling, + ecchymosis, + ttp, decr rom, nvi a/p OR for right reverse TSA tomorrow pending clearance NPO after midnight pain control all questions answered d/w Dr. Dwyer
[2019-01-04] MEDS ORDERED: PT OWN MED DRAWER 7, Y5N ONE (09:29)
[2019-01-04] MEDS ORDERED: MAGNESIUM SULF 50% (8.12 MEQ/2 ML-1 GM VIAL) IVPB ONE (09:45)
[2019-01-04] MEDS: OMEGA-3 ACID ETHYL ESTERS (FATTY-ACIDS) 1 GM CAPSULE (FP) PO SCH ×2 (09:47→22:44)
[2019-01-04] MEDS: FENOFIBRIC ACID 135 MG CAP PO SCH (09:48)
[2019-01-04] MEDS: NITROFURANTOIN MACROCRYSTAL 50 MG CAPSULE (FP) PO SCH (09:48)
[2019-01-04] MEDS: ISOSORBIDE MONONITRATE 30 MG TAB.SR.24H (FP) PO SCH (09:48)
[2019-01-04] MEDS: METOPROLOL TARTRATE 25 MG TABLET (FP) PO SCH ×2 (09:48→22:43)
[2019-01-04] MEDS: RAMIPRIL 2.5 MG CAPSULE (FP) PO SCH (09:49)
[2019-01-04] MEDS: ACETAMINOPHEN 325 MG TABLET (FP) PO PRN ×3 (10:38→20:12)
[2019-01-04] MEDS ORDERED: INSULIN (NOVOLOG) ASPART 100 UNITS/ML 10ML VIAL ONE (12:32)
[2019-01-04] MEDS: SILVER SULFADIAZINE 1% TOP CREAM 50 GM JAR TP SCH (12:36)
--- NOTE | 2019-01-04 14:18 | PN ---
Physical Exam: SUBJECTIVE: Patient seen and examined. Pt complained of pain which was responsive to pain control meds. Otherwise no fevers or increased swelling in RUE OBJECTIVE: Vital Signs Period Temp Pulse Resp BP Sys/Jacobs Pulse Ox Last 24 Hr 97.8 F-98.4 F 74-89 18-20 108-160/43-112 95-100 GENERAL: The patient is awake, alert, and fully oriented, in no acute distress. HEAD: Normal with no signs of trauma. EYES: PERRL, extraocular movements intact, sclera anicteric, conjunctiva clear. No ptosis. ENT: Ears normal, nares patent, oropharynx clear without exudates, moist mucous membranes. LUNGS: Breath sounds equal, clear to auscultation bilaterally, no wheezes, no crackles, no accessory muscle use. HEART: Regular rate and rhythm, S1, S2 without murmur, rub or gallop. ABDOMEN: Soft, nontender, nondistended, normoactive bowel sounds, no guarding, no rebound, no hepatosplenomegaly, no masses. EXTREMITIES: 2+ pulses, warm, well-perfused, no edema. sling for R arm fracture. pain 4/10. pulse 2+ in RUE PSYCH: Normal mood, normal affect. SKIN: Warm, dry, normal turgor, b/l leg swelling with signs of cellulitis with silvadene and marvin wrapping Laboratory Results - last 24 hr 01/03/19 01/03/19 01/03/19 13:05 17:00 22:24 POC Glucometer 220 215 Creatine Kinase Index No Result Required. CK-MB (CK-2) < 1.0 01/04/19 01/04/19 06:39 12:07 POC Glucometer 231 287 Creatine Kinase Index CK-MB (CK-2) Active Medications Generic Name Dose Route Start Last Admin Trade Name Freq PRN Reason Stop Dose Admin Acetaminophen 650 mg 01/03/19 16:44 01/04/19 10:38 Tylenol - PO 650 mg Q4H PRN Administration PAIN LEVEL 4 - 6 Atorvastatin Calcium 20 mg 01/03/19 22:00 01/03/19 22:31 Lipitor - PO 20 mg HS JESÚS Administration Fenofibric Acid 135 mg 01/03/19 10:00 01/04/19 09:48 Trilipix - PO 135 mg DAILY JESÚS Administration Gabapentin 300 mg 01/03/19 22:00 01/03/19 22:31 Neurontin - PO 300 mg HS JESÚS Administration Heparin Sodium (Porcine) 5,000 unit 01/03/19 22:00 01/04/19 06:36 Heparin - SQ 5,000 unit TID JESÚS Administration Sodium Chloride 1,000 mls @ 50 mls/hr 01/03/19 04:15 01/04/19 06:33 Normal Saline - IV Not Given ASDIR JESÚS Cefazolin Sodium 1 gm/ 50 mls @ 100 mls/hr 01/03/19 21:00 01/04/19 09:49 Dextrose IVPB 100 mls/hr Q8H-IV JESÚS Administration Insulin Aspart 1 vial 01/03/19 07:00 01/04/19 12:36 Novolog Vial Sliding Scale - SQ 6 units ACHS JESÚS Administration Protocol Isosorbide Mononitrate 30 mg 01/03/19 10:00 01/04/19 09:48 Imdur - PO 30 mg DAILY JESÚS Administration Levothyroxine Sodium 50 mcg 01/03/19 07:00 01/04/19 06:36 Synthroid - PO 50 mcg ACBK JESÚS Administration Metoprolol Tartrate 25 mg 01/03/19 10:00 01/04/19 09:48 Lopressor - PO 25 mg BID JESÚS Administration Nitrofurantoin Macrocrystals 50 mg 01/03/19 10:00 01/04/19 09:48 Macrodantin - PO 50 mg DAILY JESÚS Administration Non-Formulary Medication 1 each 01/03/19 04:15 Subcutaneous Insulin Pump [Omnipod] ASDIR JESÚS [id number]-[id number] Ethyl Esters 2 gm 01/03/19 10:00 01/04/19 09:47 Lovaza - PO 2 gm BID JESÚS Administration Oxycodone HCl 5 mg 01/03/19 16:44 01/04/19 13:51 Roxicodone - PO 5 mg Q4H PRN Administration PAIN LEVEL 6-10 Ramipril 2.5 mg 01/03/19 10:00 01/04/19 09:49 Altace - PO 2.5 mg DAILY JESÚS Administration Silver Sulfadiazine 1 applic 01/03/19 11:15 01/04/19 12:36 Silvadene - TP 1 applic DAILY JESÚS Administration ASSESSMENT/PLAN: 73 y.o. F PMH DM2, uterine CA s/p PABLO, HTN, HLD, hypothyroidism, asthma, incontinence, L rotator cuff tear s/p 3x repairs, L eye blindness, vertigo presenting s/p fall. Right humerus fx s/p mechanical fall R arm placed in sling Ortho consulted- Dr. Dwyer-- pre-op labs ordered. OR for reverse TSA TOMORROW NPO after midnight RUE pulse 2+; continue to monitor Fall precautions f/u PT B/l LE swelling with cellulitis currently on cefazolin 1gm silvadene applied with marvin wraps Afebrile WBC 8.3 Uncontrolled DM A1c 7.7 improved from previous visits but still elevated Pt has insulin omnipod placed ISS BGMs NEETA Cr 1.2 improved from admission from1.5-- last cr was in 2015 0.9 avoid nephrotoxic medications HTN isosorbide mononitrate 30mg PO daily, metoprolol 25mg PO BID, ramipril 2.5mg PO daily HLD atorvastatin 10mg PO daily fenofibrate Hypothyroidism synthroid 50mcg PO daily TSH 2.03 Bladder incontinence Gabapentin 300mg PO at bedtime castaneda in place since patient has difficulty ambulating due to fx and has incontinence DVT PPX hold hep subQ for procedure in the am Visit type - Emergency Visit Emergency Visit: Yes ED Registration Date: 01/03/19 Care time: The patient presented to the Emergency Department on the above date and was hospitalized for further evaluation of their emergent condition. - New Patient This patient is new to me today: No - Critical Care Critical Care patient: No - Discharge Referral Referred to [facility] Med [facility] No ATTENDING PHYSICIAN STATEMENT I saw and evaluated the patient. I reviewed the resident's note and discussed the case with the resident. I agree with the resident's findings and plan as documented. SUBJECTIVE: OBJECTIVE: ASSESSMENT AND PLAN:
--- NOTE | 2019-01-04 20:55 | PN ---
Teaching Attending Note Name of Resident: Tina Kyees ATTENDING PHYSICIAN STATEMENT I saw and evaluated the patient. I reviewed the resident's note and discussed the case with the resident. I agree with the resident's findings and plan as documented. SUBJECTIVE: Patient is comfortable with no acute distress. OBJECTIVE: Vital Signs Temperature 98.8 F 01/04/19 18:00 Pulse Rate 96 H 01/04/19 18:00 Respiratory Rate 18 01/04/19 18:00 Blood Pressure 121/64 01/04/19 18:00 O2 Sat by Pulse Oximetry (%) 95 01/04/19 09:00 GENERAL: The patient is awake, alert, and fully oriented, in mild distress. HEAD: Normal with no signs of trauma. EYES: PERRL, extraocular movements intact, sclera anicteric, conjunctiva clear. ENT: Ears normal, oropharynx clear without exudates, moist mucous membranes. NECK: Trachea midline, full range of motion, supple. LUNGS: Breath sounds equal, clear to auscultation bilaterally, no wheezes, no crackles, no accessory muscle use. HEART: Regular rate and rhythm, S1, S2 without murmur, rub or gallop. ABDOMEN: Soft, nontender, nondistended, normoactive bowel sounds, no guarding, no rebound, no hepatosplenomegaly, no masses. EXTREMITIES: 2+ pulses, warm, well-perfused, 1+ edema bl, with mild cellulitis of LEs. Right arm in sling NEUROLOGICAL: Cranial nerves II through XII grossly intact. Normal speech, gait not observed. PSYCH: Normal mood, normal affect. SKIN: Warm, dry, normal turgor, no rashes or lesions noted CBCD WBC 8.3 K/mm3 (4.0-10.0) 01/03/19 13:05 RBC 3.76 M/mm3 (3.60-5.2) 01/03/19 13:05 Hgb 11.0 GM/dL (10.7-15.3) 01/03/19 13:05 Hct 32.9 % (32.4-45.2) 01/03/19 13:05 MCV 87.4 fl (80-96) 01/03/19 13:05 MCHC 33.4 g/dl (32.0-36.0) 01/03/19 13:05 RDW 15.3 % (11.6-15.6) 01/03/19 13:05 Plt Count 201 K/MM3 (134-434) 01/03/19 13:05 MPV 7.7 fl (7.5-11.1) 01/03/19 13:05 CMP Sodium 137 mmol/L (136-145) 01/03/19 13:05 Potassium 4.8 mmol/L (3.5-5.1) 01/03/19 13:05 Chloride 105 mmol/L (98-107) 01/03/19 13:05 Carbon Dioxide 24 mmol/L (21-32) 01/03/19 13:05 Anion Gap 8 MMOL/L (8-16) 01/03/19 13:05 BUN 30.6 mg/dL (7-18) H 01/03/19 13:05 Creatinine 1.2 mg/dL (0.55-1.3) 01/03/19 13:05 Random Glucose 173 mg/dL (74-106) H 01/03/19 13:05 Calcium 8.8 mg/dL (8.5-10.1) 01/03/19 13:05 Total Bilirubin 0.5 mg/dL (0.2-1) 01/03/19 13:05 AST 14 U/L (15-37) L 01/03/19 13:05 ALT 16 U/L (13-61) 01/03/19 13:05 Alkaline Phosphatase 46 U/L (45-117) 01/03/19 13:05 Total Protein 6.4 g/dl (6.4-8.2) 01/03/19 13:05 Albumin 3.7 g/dl (3.4-5.0) 01/03/19 13:05 CARDIAC ENZYMES Creatine Kinase 161 U/L (26-192) 01/03/19 13:05 Current Medications Generic Name Dose Route Start Last Admin Trade Name Freq PRN Reason Stop Dose Admin Acetaminophen 650 mg 01/03/19 16:44 01/04/19 20:12 Tylenol - PO 650 mg Q4H PRN Administration PAIN LEVEL 4 - 6 Atorvastatin Calcium 20 mg 01/03/19 22:00 01/03/19 22:31 Lipitor - PO 20 mg HS JESÚS Administration Fenofibric Acid 135 mg 01/03/19 10:00 01/04/19 09:48 Trilipix - PO 135 mg DAILY JESÚS Administration Gabapentin 300 mg 01/03/19 22:00 01/03/19 22:31 Neurontin - PO 300 mg HS JESÚS Administration Sodium Chloride 1,000 mls @ 50 mls/hr 01/03/19 04:15 01/04/19 06:33 Normal Saline - IV Not Given ASDIR JESÚS Cefazolin Sodium 1 gm/ 50 mls @ 100 mls/hr 01/03/19 21:00 01/04/19 17:38 Dextrose IVPB 100 mls/hr Q8H-IV JESÚS Administration Insulin Aspart 1 vial 01/03/19 07:00 01/04/19 17:43 Novolog Vial Sliding Scale - SQ 4 units ACHS JSEÚS Administration Protocol Isosorbide Mononitrate 30 mg 01/03/19 10:00 01/04/19 09:48 Imdur - PO 30 mg DAILY JESÚS Administration Levothyroxine Sodium 50 mcg 01/03/19 07:00 01/04/19 06:36 Synthroid - PO 50 mcg ACBK JESÚS Administration Metoprolol Tartrate 25 mg 01/03/19 10:00 01/04/19 09:48 Lopressor - PO 25 mg BID JESÚS Administration Nitrofurantoin Macrocrystals 50 mg 01/03/19 10:00 01/04/19 09:48 Macrodantin - PO 50 mg DAILY JESÚS Administration Non-Formulary Medication 1 each 01/03/19 04:15 Subcutaneous Insulin Pump [Omnipod] MC ASDIR JESÚS [id number] Ethyl Esters 2 gm 01/03/19 10:00 01/04/19 09:47 Lovaza - PO 2 gm BID JESÚS Administration Oxycodone HCl 5 mg 01/03/19 16:44 01/04/19 18:08 Roxicodone - PO 5 mg Q4H PRN Administration PAIN LEVEL 6-10 Ramipril 2.5 mg 01/03/19 10:00 01/04/19 09:49 Altace - PO 2.5 mg DAILY JESÚS Administration Silver Sulfadiazine 1 applic 01/03/19 11:15 01/04/19 12:36 Silvadene - TP 1 applic DAILY JESÚS Administration Home Medications Medication Instructions Recorded Atorvastatin Calcium 20 mg PO DAILY tablet 09/13/12 [place]-3 Fatty Acids [[place]-3] 1,000 mg PO DAILY 04/06/14 Insulin Lispro [Humalog] 100 unit SQ ASDIR vial 09/28/16 Levothyroxine Sodium 50 mcg PO DAILY tablet 09/28/16 Subcutaneous Insulin Pump [Omnipod] 1 each MC ASDIR each 09/28/16 Fenofibrate,Micronized 135 mg PO DAILY 01/03/19 [Fenofibrate] Gabapentin 300 mg PO HS MDD 1-2 01/03/19 Isosorbide Mononitrate [Isosorbide 30 mg PO DAILY 01/03/19 Mononitrate ER] Metoprolol Tartrate 25 mg PO BID 01/03/19 Pioglitazone HCl [Actos] 15 mg PO DAILY 01/03/19 Zolpidem Tartrate [Ambien] 5 mg PO HS 01/03/19 traZODone HCL [Trazodone HCl] 100 mg PO HS 01/03/19 ASSESSMENT AND PLAN: Patient is a 73yo female with PMHx of DM2, uterine CA s/p PABLO, HTN, HLD, hypothyroidism, asthma, incontinence, L rotator cuff tear s/p repair, L eye blindness, vertigo presenting s/p fall with Fx of right humurus fx # Acute Right humerus fx s/p mechanical fall: Ortho sling , going to OR in am by # B/l LE swelling with cellulitis: on IV abx continue cefazolin # Uncontrolled DM: SS with coverage # NEETA: improving #HTN: continue current regimen #HLD : continue lipitor #Hypothyroidism: continue home levoxyl # Morbid obesity: diet modification and weight loss DVT PPX: hep sq
[2019-01-04] MEDS: ATORVASTATIN CA 20 MG TABLET (FP) PO SCH (22:42)
[2019-01-04] MEDS: GABAPENTIN 300 MG CAPSULE (FP) PO SCH (22:43)
[2019-01-05] MEDS: SODIUM CHLORIDE 1,000 ML IV SCH ×3 (00:07→16:45)
[2019-01-05] MEDS ORDERED: ceFAZolin SODIUM 1 GM VIAL ONE (01:24)
[2019-01-05] MEDS ORDERED: DEXTROSE 5%-WATER - 50 ML IVPB ONE (01:24)
[2019-01-05] MEDS: CEFAZOLIN 1 GM in DEXTROSE 5%-WATER - 50 ML IVPB SCH (02:38)
[2019-01-05] MEDS: INSULIN SLIDING SCALE (NOVOLOG) 1 VIAL SQ SCH ×3 (07:19→21:07)
[2019-01-05] MEDS: LEVOTHYROXINE NA 50 MCG TABLET (FP) PO SCH (07:44)
[2019-01-05] MEDS ORDERED: BUPIVACAINE HCL/PF 0.5% (5 MG/ML) 30 ML VIAL IJ ONE (07:52)
[2019-01-05] MEDS ORDERED: DEXMEDETOMIDINE HCL 200 MCG/2 ML IVPB ONE (07:52)
[2019-01-05] MEDS ORDERED: MIDAZOLAM HCL 2 MG/2 ML SINGLE DOSE VIAL ONE ×2 (07:53)
[2019-01-05] MEDS ORDERED: ceFAZolin SODIUM 1 GM VIAL IVPB ONE ×2 (08:04)
[2019-01-05] MEDS ORDERED: BUPIVACAINE LIPOSOME/PF (EXPAREL) 266 MG/20 ML VIAL ONE (08:05)
[2019-01-05] MEDS ORDERED: ROCURONIUM BROMIDE 50 MG/5 ML SYRINGE ONE (08:43)
[2019-01-05] MEDS ORDERED: METOPROLOL TARTRATE 5 MG/5 ML VIAL ONE (09:12)
[2019-01-05] MEDS ORDERED: PHENYLEPHRINE HCL 10 MG/1 ML SINGLE DOSE VIAL ONE (09:50)
[2019-01-05] MEDS ORDERED: NEOSTIGMINE METHYLSULFATE 0.5 MG/ML - 10 ML MDV ONE (11:35)
[2019-01-05] MEDS ORDERED: GLYCOPYRROLATE 0.2 MG/1 ML VIAL ONE (11:36)
--- NOTE | 2019-01-05 11:45 | OP ---
Operative Note - Note: Operative Date: 01/05/19 Pre-Operative Diagnosis: displaced 4 part proximal humerus fracture, RTC tear Operation: Reverse Total Shoulder Replacement, Open RTC repair, Biceps tenotomy Implants: Lin Accolade Reverse Total Shoulder Replacement: Size 8 stem, cemented, 32mm [place], 8 mm polyethylene, 4mm base plate Surgeon: Hernan Dwyer (\) Carpenter: Milind Cooper Anesthesiologist/CITY CONTROLLER: Noah Aparicio Anesthesia: General, Local Specimens Removed: humeral head Estimated Blood Loss (mls): 100 Drains, Volume Out (mls): 0 Blood Volume Replaced (mls): 0 Fluid Volume Replaced (mls): 1,500 Operative Report Dictated: Yes
[2019-01-05] MEDS ORDERED: oxyCODONE HCL 5 MG TABLET PO PRN (12:15)
[2019-01-05] MEDS ORDERED: traMADol HCL 50 MG TABLET PO PRN (12:15)
[2019-01-05] MEDS ORDERED: LACTATED RINGERS SOLUTION 1,000 ML IV SCH (12:15)
[2019-01-05] MEDS ORDERED: ONDANSETRON 4 MG/2 ML VIAL IVPUSH PRN (12:15)
[2019-01-05] MEDS ORDERED: SUBCUTANEOUS INSULIN PUMP MC SCH (12:25)
[2019-01-05] MEDS ORDERED: ONDANSETRON 4 MG/2 ML VIAL ONE (13:39)
--- NOTE | 2019-01-05 14:37 | SPEC ---
DATE OF OPERATION: 01/05/2019 PREOPERATIVE DIAGNOSES: Right 4-part proximal humerus fracture and rotator cuff tear. POSTOPERATIVE DIAGNOSIS: Right 4-part proximal humerus fracture and rotator cuff tear. PROCEDURE: Right reverse total shoulder replacement, open rotator cuff repair, and biceps tenotomy. SURGEON: Bartolo Dow MD RECORD CHANGER TESTER: MATTEO Fam WHEEL PRESS OPERATOR: Noah Aparicio CRNA ANESTHESIA: Right interscalene block and LMA anesthesia. DRAINS: None. COMPLICATIONS: None. SPECIMEN: Right humeral head. BLOOD LOSS: 100 mL. BLOOD GIVEN: None. FLUID REPLACEMENT: Plasmalyte 1500 mL. INDICATIONS: This patient is a 73-year-old female, status post fall with a displaced, very proximal, 4-part proximal humerus fracture and rotator cuff tear. After understanding the potential risks, complications, alternatives, and benefits of surgery versus nonsurgical treatment, the patient elected to undergo this procedure. DESCRIPTION OF PROCEDURE: Patient was brought to the operating room, peripheral IV placed, and IV sedation given. Two grams of IV Ancef were given. Right interscalene block was performed. LMA anesthesia was induced. She was placed into the beach-chair position with ample padding throughout. The right upper extremity was then prepped and draped in sterile fashion. The bony landmarks were marked out with a marking pen. A 6-inch oblique anterior incision was marked out over the anterior aspect of the shoulder in the deltopectoral interval. The incision was made with No. 10 scalpel blade. Subcutaneous hemostasis achieved with the Bovie cautery. Dissection done with both the Bovie and the Metzenbaum scissors to the deltoid. The deltopectoral interval was identified. I dissected down through the fat surrounding the cephalic vein with the Metzenbaum scissors. There were transverse vessels off the cephalic which were cauterized on the lateral side. They were much bigger on the medial side. The cephalic vein was then transposed medially. Blunt-tipped [place] retractors were placed into the deltopectoral interval. I dissected bluntly with my finger down through the deltopectoral interval, retracting the pectoralis medially and the deltoid laterally until I exposed the anterior capsule. In this particular case, the capsule had been ruptured anteriorly and cut by the sharp edge of the proximal humeral fracture. Fracture hematoma was removed. Debris was removed. We found the biceps tendon. It was displaced and in the way, and, therefore, a complete biceps tenotomy was performed proximally, and the proximal 4-inch stump of biceps tendon was removed. The top portion of the humerus was cut with the oscillating saw to the appropriate level and all jagged edges removed. Next, 4 FiberWires were used as retaining sutures in the supraspinatus and infraspinatus. Additional FiberWires were placed into the subscapularis. I was then able to, in an open-book fashion, display the rest of the fractured humeral head and the glenoid. The rest of the humeral head was removed and the cancellous bone morselized for future bone graft. The jagged edges of the greater and lesser tuberosity were excised with the rongeur and oscillating saw, leaving a bony insertion for the rotator cuff for later. Next, the small pieces of the fractured proximal humeral head were removed. The area was copiously irrigated and washed out. All the debris had been removed. The glenoid was well exposed. Next, pickle forceps were used to further expose the glenoid. The soft tissue labrum was removed with a Thai and Bovie. Then, using the standard [employer] Accolade Proximal Humeral Shoulder Replacement System, I first used the glenoid guide with the offset pin and drilled it into the center-center position in a bicortical fashion. The glenoid was visualized. It looked to be quite good as far as the position of the pin. Then, I used the hemispherical reamer to take off the cartilage until we had a cancellous smile inferiorly. The bony rim that was created by the hemispherical reamer was excised with the rongeur. I was able to see and feel that there were no other bony rims or anything inhibiting the glenoid plates. Next, we used the depth gauge through the center hole, measured a 32-mm screw. It was pre-tapped 50% and then put down in the standard fashion with the glenoid being held in place with the special prosthesis clamp. I was able to put down the center screw until there was no rotation and there was good bony opposition globally on the undersurface of the glenoid plate. Next, I put in 4 screws in the standard fashion first superior at 24 mm in length, then posterior at 16 mm in length, anterior 24 mm in length, and inferior at 24 mm in length. There was excellent bony fixation. The area was irrigated and washed out, and the standard 32-mm glenosphere was tapped into place in the [place] taper fashion. I tried to pull it off; I could not. It was tapped further. Next, we turned our attention to the proximal humerus which was prepared in the standard fashion. First, we used hand reamers until we got down to a 12. Next, I fashioned a bone plug of cancellous and cortical bone. I then put it down to the appropriate depth with the broach. I then tested the broach using the T handle, increasing the phalanges to fix it in place. The top of the prosthesis was 4 cm proximal to the insertion of the pectoralis on the humerus. We dialed in about 28 degrees of retroversion. Next, a standard 4-mm plate was placed on and the 4-mm polyethylene. It was reduced. It was seen to be a little bit loose. A 6-mm polyethylene was placed on, again reduced, again tested. It was better with less shucking and less motion, but then, I used an 8 mm and this was quite stable in all planes and with better range of motion and stability. It was difficult to dislocate in any plane. It was then dislocated with the shoehorn. The prosthesis removed. The actual Accolade stem which was porous coated for bony ingrowth was put on the back table. We used a 2.5-mm drill bit and drilled 2 drill holes in the humeral shaft for later rotator cuff repair and passed 2 FiberWire through these holes. Next, we mixed 2 bags of Simplex cement, waited until the appropriate time, pre-coated the prosthesis, and pressurized the cement down the humeral shaft. It felt like we got excellent pressurization. Excess cement was removed. We then put down the pre-coated humeral stem which was a size 8 stem, held it in place with the proper height and version until the cement was dry, removing excess cement along the way. When the cement was dry, it was tested. It was seen to be quite stable. We again did our provisional reduction and trial with a 4-mm baseplate and 8-mm polyethylene. It was seen to be quite stable with excellent range of motion in all planes. Next, we put on the actual [place] taper 4- and 8-mm prosthesis. It was tapped into place, reduced. Range of motion tested. It was seen to be excellent in all planes. Next, I did a [id number] repair of the rotator cuff and the tuberosities over the prosthesis. I then bone grafted laterally all the cancellous bone from the humeral head. I then used several additional FiberWire sutures to repair the tuberosities and the rotator cuff over this bone graft and finally put sutures in a free-needle fashion through the rotator cuff, both supraspinatus and infraspinatus, and tied it down to the 2 FiberWires that had been put through the humeral shaft and through the bone holes. It came together quite nicely, was holding it down quite nicely, would act to suppress the humeral head in a beneficial fashion and act as a rotator cuff repair to the humerus. The arm was put through range of motion; overall, looked quite good. Next, I closed the deltoid with 0 Vicryl suture. The area was irrigated and washed out. Closure was done with 2-0 Vicryl in the deep dermal layer, and final skin reapproximation was done with a running subcuticular 4-0 V-Loc 90 suture. The area was then washed and dried, covered with SwiftSet glue, Aquacel dressing, and she was placed into a sling. Total operative time was 2 hours. Blood loss was 100 mL. There were no complications during the case. She was extubated and brought to the regular recovery room in stable condition. BARTOLO DOW M.D. [id number]
--- NOTE | 2019-01-05 16:11 | PN ---
Physical Exam: SUBJECTIVE: Patient seen and examined.Pt went for procedure this morning. OBJECTIVE: Vital Signs Period Temp Pulse Resp BP Sys/Jacobs Pulse Ox Last 24 Hr 98.2 F-98.8 F 75-96 14-28 121-146/42-100 95-96 Not examined since patient had already gone to OR Laboratory Results - last 24 hr 01/04/19 01/04/19 01/05/19 16:33 22:38 07:13 POC Glucometer 249 247 215 01/05/19 11:46 POC Glucometer 322 Active Medications Generic Name Dose Route Start Last Admin Trade Name Freq PRN Reason Stop Dose Admin Acetaminophen 650 mg 01/05/19 12:25 Tylenol - PO Q4H PRN PAIN LEVEL 4 - 6 Atorvastatin Calcium 20 mg 01/05/19 22:00 Lipitor - PO HS JES[facility]S Cefazolin Sodium/Dextrose 2 gm 01/05/19 18:00 Ancef 2 Gm Premixed Ivpb - IVPB 01/06/19 02:01 Q8H JES[facility] Fenofibric Acid 135 mg 01/06/19 10:00 Trilipix - PO DAILY [facility] Fentanyl 50 mcg 01/05/19 12:15 Sublimaze Injection - IVPUSH [id number] PRN PAIN-PACU ORDER X 4 DOSES ONLY Gabapentin 300 mg 01/05/19 22:00 Neurontin - PO HS JES[facility]S Lactated Ringer's 1,000 mls @ 125 mls/hr 01/05/19 12:15 Lactated Ringers Solution IV ASDIR [facility] Sodium Chloride 1,000 mls @ 50 mls/hr 01/05/19 12:25 Normal Saline - IV ASDIR [facility] Insulin Aspart 1 vial 01/05/19 16:30 Novolog Vial Sliding Scale - SQ ACHS [facility] Protocol Isosorbide Mononitrate 30 mg 01/06/19 10:00 Imdur - PO DAILY [facility] Levothyroxine Sodium 50 mcg 01/06/19 07:00 Synthroid - PO ACBK [facility] Metoprolol Tartrate 25 mg 01/05/19 22:00 Lopressor - PO BID [facility] Non-Formulary Medication 1 each 01/05/19 12:25 Subcutaneous Insulin Pump [Omnipod] MC ASDIR [facility] [id number] Ethyl Esters 2 gm 01/05/19 22:00 Lovaza - PO BID [facility] Ondansetron HCl 4 mg 01/05/19 12:15 01/05/19 13:40 Zofran Injection IVPUSH 4 mg Q6H PRN Administration NAUSEA AND/OR VOMITING Oxycodone HCl 5 mg 01/05/19 12:15 Roxicodone - PO Q3H PRN PAIN LEVEL 1-5 Oxycodone HCl 10 mg 01/05/19 12:15 Roxicodone - PO Q3H PRN PAIN LEVEL 6-10 Ramipril 2.5 mg 01/06/19 10:00 Altace - PO DAILY [facility] Silver Sulfadiazine 1 applic 01/06/19 10:00 Silvadene - TP DAILY [facility] Tramadol HCl 50 mg 01/05/19 12:15 Ultram - PO Q3H PRN PAIN LEVEL 1 - 3 ASSESSMENT/PLAN: 73 y.o. F PMH DM2, uterine CA s/p PABLO, HTN, HLD, hypothyroidism, asthma, incontinence, L rotator cuff tear s/p 3x repairs, L eye blindness, vertigo presenting s/p fall. Right humerus fx s/p mechanical fall POD 0 s/p Reverse Total Shoulder Replacement, Open RTC repair, Biceps tenotomy diabetic/sodium controlled diet pain control Oxy, fentanyl, tramadol,tylenol zofran for N/V RUE pulse 2+; continue to monitor Fall precautions f/u PT B/l LE swelling with cellulitis currently on cefazolin 1gm silvadene applied with marvin wraps Afebrile Uncontrolled DM A1c 7.7 improved from previous visits but still elevated Pt has insulin omnipod placed ISS BG running high poss due to body stress from fx. will monitor before adding another agent NEETA Cr 1.2 improved from admission from1.5-- last cr was in 2016 0.9 avoid nephrotoxic medications HTN isosorbide mononitrate 30mg PO daily, metoprolol 25mg PO BID, ramipril 2.5mg PO daily HLD atorvastatin 10mg PO daily fenofibrate Hypothyroidism synthroid 50mcg PO daily TSH 2.03 Bladder incontinence Gabapentin 300mg PO at bedtime castaneda in place since patient has difficulty ambulating due to fx and has incontinence DVT PPX SCDs Visit type - Emergency Visit Emergency Visit: Yes ED Registration Date: 01/03/19 Care time: The patient presented to the Emergency Department on the above date and was hospitalized for further evaluation of their emergent condition. - New Patient This patient is new to me today: No - Critical Care Critical Care patient: No - Discharge Referral Referred to [facility] Med P.C.: No ATTENDING PHYSICIAN STATEMENT I saw and evaluated the patient. I reviewed the resident's note and discussed the case with the resident. I agree with the resident's findings and plan as documented. SUBJECTIVE: OBJECTIVE: ASSESSMENT AND PLAN:
--- NOTE | 2019-01-05 16:56 | PN ---
Teaching Attending Note Name of Resident: Tina Keyes ATTENDING PHYSICIAN STATEMENT I saw and evaluated the patient. I reviewed the resident's note and discussed the case with the resident. I agree with the resident's findings and plan as documented. SUBJECTIVE: Patient is c/o having right shoulder pain. OBJECTIVE: Vital Signs Temperature 98.4 F 01/05/19 12:04 Pulse Rate 88 01/05/19 15:30 Respiratory Rate 16 01/05/19 15:30 Blood Pressure 133/66 01/05/19 15:30 O2 Sat by Pulse Oximetry (%) 95 01/05/19 15:30 GENERAL: The patient is awake, alert, and fully oriented, in mild distress. HEAD: Normal with no signs of trauma. EYES: PERRL, extraocular movements intact, sclera anicteric, conjunctiva clear. ENT: Ears normal, oropharynx clear without exudates, moist mucous membranes. NECK: Trachea midline, full range of motion, supple. LUNGS: Breath sounds equal, clear to auscultation bilaterally, no wheezes, no crackles, no accessory muscle use. HEART: Regular rate and rhythm, S1, S2 without murmur, rub or gallop. ABDOMEN: Soft, nontender, nondistended, normoactive bowel sounds, no guarding, no rebound, no hepatosplenomegaly, no masses. EXTREMITIES: 2+ pulses, warm, well-perfused, 1+ edema bl, mild cellulitis of LEs improving. Right arm in sling NEUROLOGICAL: Cranial nerves II through XII grossly intact. Normal speech, gait not observed. PSYCH: Normal mood, normal affect. SKIN: Warm, dry, normal turgor, no rashes or lesions noted CBCD WBC 8.3 K/mm3 (4.0-10.0) 01/03/19 13:05 RBC 3.76 M/mm3 (3.60-5.2) 01/03/19 13:05 Hgb 11.0 GM/dL (10.7-15.3) 01/03/19 13:05 Hct 32.9 % (32.4-45.2) 01/03/19 13:05 MCV 87.4 fl (80-96) 01/03/19 13:05 MCHC 33.4 g/dl (32.0-36.0) 01/03/19 13:05 RDW 15.3 % (11.6-15.6) 01/03/19 13:05 Plt Count 201 K/MM3 (134-434) 01/03/19 13:05 MPV 7.7 fl (7.5-11.1) 01/03/19 13:05 CMP Sodium 137 mmol/L (136-145) 01/03/19 13:05 Potassium 4.8 mmol/L (3.5-5.1) 01/03/19 13:05 Chloride 105 mmol/L (98-107) 01/03/19 13:05 Carbon Dioxide 24 mmol/L (21-32) 01/03/19 13:05 Anion Gap 8 MMOL/L (8-16) 01/03/19 13:05 BUN 30.6 mg/dL (7-18) H 01/03/19 13:05 Creatinine 1.2 mg/dL (0.55-1.3) 01/03/19 13:05 Random Glucose 173 mg/dL (74-106) H 01/03/19 13:05 Calcium 8.8 mg/dL (8.5-10.1) 01/03/19 13:05 Total Bilirubin 0.5 mg/dL (0.2-1) 01/03/19 13:05 AST 14 U/L (15-37) L 01/03/19 13:05 ALT 16 U/L (13-61) 01/03/19 13:05 Alkaline Phosphatase 46 U/L (45-117) 01/03/19 13:05 Total Protein 6.4 g/dl (6.4-8.2) 01/03/19 13:05 Albumin 3.7 g/dl (3.4-5.0) 01/03/19 13:05 CARDIAC ENZYMES Creatine Kinase 161 U/L (26-192) 01/03/19 13:05 Current Medications Generic Name Dose Route Start Last Admin Trade Name Freq PRN Reason Stop Dose Admin Acetaminophen 650 mg 01/05/19 12:25 Tylenol - PO Q4H PRN PAIN LEVEL 4 - 6 Atorvastatin Calcium 20 mg 01/05/19 22:00 Lipitor - PO HS JESÚS Cefazolin Sodium/Dextrose 2 gm 01/05/19 18:00 Ancef 2 Gm Premixed Ivpb - IVPB 01/06/19 02:01 Q8H JESÚS Fenofibric Acid 135 mg 01/06/19 10:00 Trilipix - PO DAILY [facility] Fentanyl 50 mcg 01/05/19 12:15 Sublimaze Injection - IVPUSH [id number] PRN PAIN-PACU ORDER X 4 DOSES ONLY Gabapentin 300 mg 01/05/19 22:00 Neurontin - PO HS JESÚS Lactated Ringer's 1,000 mls @ 125 mls/hr 01/05/19 12:15 Lactated Ringers Solution IV ASDIR [facility] Sodium Chloride 1,000 mls @ 50 mls/hr 01/05/19 12:25 Normal Saline - IV ASDIR [facility] Insulin Aspart 1 vial 01/05/19 16:30 Novolog Vial Sliding Scale - SQ ACHS [facility] Protocol Isosorbide Mononitrate 30 mg 01/06/19 10:00 Imdur - PO DAILY [facility] Levothyroxine Sodium 50 mcg 01/06/19 07:00 Synthroid - PO ACBK [facility] Metoprolol Tartrate 25 mg 01/05/19 22:00 Lopressor - PO BID [facility] Non-Formulary Medication 1 each 01/05/19 12:25 Subcutaneous Insulin Pump [Omnipod] MC ASDIR [facility] [id number] Ethyl Esters 2 gm 01/05/19 22:00 Lovaza - PO BID [facility] Ondansetron HCl 4 mg 01/05/19 12:15 01/05/19 13:40 Zofran Injection IVPUSH 4 mg Q6H PRN Administration NAUSEA AND/OR VOMITING Oxycodone HCl 5 mg 01/05/19 12:15 Roxicodone - PO Q3H PRN PAIN LEVEL 1-5 Oxycodone HCl 10 mg 01/05/19 12:15 Roxicodone - PO Q3H PRN PAIN LEVEL 6-10 Ramipril 2.5 mg 01/06/19 10:00 Altace - PO DAILY [facility] Silver Sulfadiazine 1 applic 01/06/19 10:00 Silvadene - TP DAILY [facility] Tramadol HCl 50 mg 01/05/19 12:15 Ultram - PO Q3H PRN PAIN LEVEL 1 - 3 Home Medications Medication Instructions Recorded Atorvastatin Calcium 20 mg PO DAILY tablet 09/13/12 Blythe-3 Fatty Acids [Blythe-3] 1,000 mg PO DAILY 04/06/14 Insulin Lispro [Humalog] 100 unit SQ ASDIR vial 09/28/16 Levothyroxine Sodium 50 mcg PO DAILY tablet 09/28/16 Subcutaneous Insulin Pump [Omnipod] 1 each MC ASDIR each 09/28/16 Fenofibrate,Micronized 135 mg PO DAILY 01/03/19 [Fenofibrate] Gabapentin 300 mg PO HS MDD 1-2 01/03/19 Isosorbide Mononitrate [Isosorbide 30 mg PO DAILY 01/03/19 Mononitrate ER] Metoprolol Tartrate 25 mg PO BID 01/03/19 Pioglitazone HCl [Actos] 15 mg PO DAILY 01/03/19 Zolpidem Tartrate [Ambien] 5 mg PO HS 01/03/19 traZODone HCL [Trazodone HCl] 100 mg PO HS 01/03/19 ASSESSMENT AND PLAN: Patient is a 73yo female with PMHx of DM2, uterine CA s/p PABLO, HTN, HLD, hypothyroidism, asthma, incontinence, L rotator cuff tear s/p repair, L eye blindness, vertigo presenting s/p fall with Fx of right humurus fx # POD#0 s/p Reverse Total Shoulder Replacement, Open RTC repair, Biceps tenotomy by dr. Dwyer .s/p Acute Right humerus fx due to mechanical fall # B/l LE swelling with cellulitis: on IV abx continue cefazolin # Uncontrolled DM: SS with coverage # NEETA: will continue to monitor #HTN: continue current regimen #HLD : continue lipitor #Hypothyroidism: continue home levoxyl # Morbid obesity: diet modification and weight loss DVT PPX: hep sq
[2019-01-05] MEDS: ceFAZolin 2 GRAM PREMIX BAG IVPB SCH (17:37)
[2019-01-05] MEDS ORDERED: ceFAZolin 2 GRAM PREMIX BAG IVPB SCH (18:00)
[2019-01-05] MEDS: ACETAMINOPHEN 325 MG TABLET (FP) PO PRN (21:03)
[2019-01-05] MEDS: METOPROLOL TARTRATE 25 MG TABLET (FP) PO SCH (21:04)
[2019-01-05] MEDS: oxyCODONE HCL 5 MG TABLET PO PRN (21:05)
[2019-01-05] MEDS ORDERED: GABAPENTIN 300 MG CAPSULE (FP) PO SCH (22:00)
[2019-01-05] MEDS ORDERED: ATORVASTATIN CA 20 MG TABLET (FP) PO SCH (22:00)
[2019-01-05] MEDS: OMEGA-3 ACID ETHYL ESTERS (FATTY-ACIDS) 1 GM CAPSULE (FP) PO SCH (23:02)
[2019-01-06] MEDS: ceFAZolin 2 GRAM PREMIX BAG IVPB SCH (01:12)
[2019-01-06] MEDS: ACETAMINOPHEN 325 MG TABLET (FP) PO PRN (05:44)
[2019-01-06] MEDS: oxyCODONE HCL 5 MG TABLET PO PRN (05:45)
[2019-01-06] MEDS: SODIUM CHLORIDE 1,000 ML IV SCH (05:48)
[2019-01-06] MEDS: INSULIN SLIDING SCALE (NOVOLOG) 1 VIAL SQ SCH ×2 (06:03→11:51)
[2019-01-06] MEDS ORDERED: PROCHLORPERAZINE INJECTION 10 MG/2 ML VIAL IM ONE (06:29)
[2019-01-06] MEDS ORDERED: LEVOTHYROXINE NA 50 MCG TABLET (FP) PO SCH (07:00)
--- NOTE | 2019-01-06 08:48 | PN ---
Progress Note (short form) - Note Progress Note: POD1 s/p right reverse shoulder replacement, under GA with nerve block. Pt c/o moderate/severe breakthrough pain despite nerve block. Will add ofirmev and toradol for breakthrough pain for now. No N/V, VSS, otherwise tolerated anesthesia and surgery well
[2019-01-06] MEDS ORDERED: KETOROLAC TROMETHAMINE 30 MG/1 ML VIAL IVPUSH PRN (09:00)
[2019-01-06 09:47] LABS: BASO % 0.4 % (0-2.0); EOS % 0.4 % (0-4.5); HEMATOCRIT 29.9 % (32.4-45.2); HEMOGLOBIN 10.1 GM/dL (10.7-15.3); LYMPH % 20.7 % (8-40); MCH 29.6 pg (25.7-33.7); MCHC 33.8 g/dl (32.0-36.0); MEAN CELL VOLUME 87.6 fl (80-96); MEAN PLT VOLUME 7.8 fl (7.5-11.1); MONO % 9.1 % (3.8-10.2); NEUT % 69.4 % (42.8-82.8); PLATELET COUNT 208 K/MM3 (134-434); RBC 3.41 M/mm3 (3.60-5.2); RDW 15.1 % (11.6-15.6); WHITE BLOOD COUNT 10.7 K/mm3 (4.0-10.0)
[2019-01-06] MEDS ORDERED: RAMIPRIL 2.5 MG CAPSULE (FP) PO SCH (10:00)
[2019-01-06] MEDS ORDERED: CEFAZOLIN 2 GM/D5W 2 GM/50 ML ML IVPB SCH (10:00)
[2019-01-06] MEDS ORDERED: SILVER SULFADIAZINE 1% TOP CREAM 50 GM JAR TP SCH (10:00)
[2019-01-06] MEDS ORDERED: NITROFURANTOIN MACROCRYSTAL 50 MG CAPSULE (FP) PO SCH (10:00)
[2019-01-06] MEDS ORDERED: ISOSORBIDE MONONITRATE 30 MG TAB.SR.24H (FP) PO SCH (10:00)
[2019-01-06] MEDS ORDERED: FENOFIBRIC ACID 135 MG CAP PO SCH (10:00)
[2019-01-06 10:04] LABS: BLOOD UREA NITROGEN 27.2 mg/dL (7-18); CALCIUM 8.8 mg/dL (8.5-10.1); CREATININE 1.4 mg/dL (0.55-1.3); POTASSIUM 4.6 mmol/L (3.5-5.1)
[2019-01-06] MEDS ORDERED: PT OWN MED DRAWER 7, Y5N ONE ×2 (11:12→11:51)
[2019-01-06] MEDS ORDERED: INSULIN (NOVOLOG) ASPART 100 UNITS/ML 10ML VIAL ONE (11:16)
[2019-01-06] MEDS: OMEGA-3 ACID ETHYL ESTERS (FATTY-ACIDS) 1 GM CAPSULE (FP) PO SCH (11:49)
[2019-01-06] MEDS: METOPROLOL TARTRATE 25 MG TABLET (FP) PO SCH (11:53)
[2019-01-06] MEDS ORDERED: LACTOBACILLUS ACIDOPHILUS 1 TABLET PO SCH (12:15)
[2019-01-06 13:10] VITALS: PULSE 102; TEMP 98.5
[2019-01-06] MEDS ORDERED: ACETAMINOPHEN 1000 MG/100 ML VIAL (NON FORMULARY) IVPB PRN (14:00)
--- NOTE | 2019-01-06 14:17 | PN ---
Teaching Attending Note Name of Resident: Tina Keyes ATTENDING PHYSICIAN STATEMENT I saw and evaluated the patient. I reviewed the resident's note and discussed the case with the resident. I agree with the resident's findings and plan as documented. SUBJECTIVE: Patient is comfortable with no acute distress. OBJECTIVE: Vital Signs Temperature 98.5 F 01/06/19 10:00 Pulse Rate 102 H 01/06/19 10:00 Respiratory Rate 20 01/06/19 10:00 Blood Pressure 135/78 01/06/19 10:00 O2 Sat by Pulse Oximetry (%) 98 01/05/19 21:00 GENERAL: The patient is awake, alert, and fully oriented, in mild distress. HEAD: Normal with no signs of trauma. EYES: PERRL, extraocular movements intact, sclera anicteric, conjunctiva clear. ENT: Ears normal, oropharynx clear without exudates, moist mucous membranes. NECK: Trachea midline, full range of motion, supple. LUNGS: Breath sounds equal, clear to auscultation bilaterally, no wheezes, no crackles, no accessory muscle use. HEART: Regular rate and rhythm, S1, S2 without murmur, rub or gallop. ABDOMEN: Soft, nontender, nondistended, normoactive bowel sounds, no guarding, no rebound, no hepatosplenomegaly, no masses. EXTREMITIES: 2+ pulses, warm, well-perfused, 1+ edema bl, cellulitis of LEs improved. Right arm in sling NEUROLOGICAL: Cranial nerves II through XII grossly intact. Normal speech, gait not observed. PSYCH: Normal mood, normal affect. SKIN: Warm, dry, normal turgor, no rashes or lesions noted CBCD WBC 10.7 K/mm3 (4.0-10.0) H 01/06/19 08:00 RBC 3.41 M/mm3 (3.60-5.2) L 01/06/19 08:00 Hgb 10.1 GM/dL (10.7-15.3) L 01/06/19 08:00 Hct 29.9 % (32.4-45.2) L 01/06/19 08:00 MCV 87.6 fl (80-96) 01/06/19 08:00 MCHC 33.8 g/dl (32.0-36.0) 01/06/19 08:00 RDW 15.1 % (11.6-15.6) 01/06/19 08:00 Plt Count 208 K/MM3 (134-434) 01/06/19 08:00 MPV 7.8 fl (7.5-11.1) 01/06/19 08:00 CMP Sodium 135 mmol/L (136-145) L 01/06/19 08:00 Potassium 4.6 mmol/L (3.5-5.1) 01/06/19 08:00 Chloride 104 mmol/L (98-107) 01/06/19 08:00 Carbon Dioxide 25 mmol/L (21-32) 01/06/19 08:00 Anion Gap 6 MMOL/L (8-16) L 01/06/19 08:00 BUN 27.2 mg/dL (7-18) H 01/06/19 08:00 Creatinine 1.4 mg/dL (0.55-1.3) H 01/06/19 08:00 Random Glucose 294 mg/dL (74-106) H 01/06/19 08:00 Calcium 8.8 mg/dL (8.5-10.1) 01/06/19 08:00 Total Bilirubin 0.5 mg/dL (0.2-1) 01/03/19 13:05 AST 14 U/L (15-37) L 01/03/19 13:05 ALT 16 U/L (13-61) 01/03/19 13:05 Alkaline Phosphatase 46 U/L (45-117) 01/03/19 13:05 Total Protein 6.4 g/dl (6.4-8.2) 01/03/19 13:05 Albumin 3.7 g/dl (3.4-5.0) 01/03/19 13:05 CARDIAC ENZYMES Creatine Kinase 161 U/L (26-192) 01/03/19 13:05 Current Medications Generic Name Dose Route Start Last Admin Trade Name Freq PRN Reason Stop Dose Admin Acetaminophen 1,000 mg 01/06/19 14:00 Ofirmev Injection - IVPB Q6H PRN PAIN LEVEL 6-10 Atorvastatin Calcium 20 mg 01/05/19 22:00 01/05/19 21:04 Lipitor - PO 20 mg HS JESÚS Administration Fenofibric Acid 135 mg 01/06/19 10:00 01/06/19 11:49 Trilipix - PO 135 mg DAILY JESÚS Administration Fentanyl 50 mcg 01/05/19 12:15 Sublimaze Injection - IVPUSH [id number] PRN PAIN-PACU ORDER X 4 DOSES ONLY Gabapentin 300 mg 01/05/19 22:00 01/05/19 21:04 Neurontin - PO 300 mg HS JESÚS Administration Lactated Ringer's 1,000 mls @ 125 mls/hr 01/05/19 12:15 Lactated Ringers Solution IV ASDIR JESÚS Sodium Chloride 1,000 mls @ 50 mls/hr 01/05/19 12:25 01/06/19 05:48 Normal Saline - IV 50 mls/hr ASDIR JESÚS Administration Cefazolin Sodium/Dextrose 2 gm in 50 mls @ 100 mls/hr 01/06/19 10:00 11:49 Ancef 2 Gm Premixed Ivpb - IVPB 100 mls/hr Q8H-IV JESÚS Administration Insulin Aspart 1 vial 01/05/19 16:30 01/06/19 11:51 Novolog Vial Sliding Scale - SQ 6 units ACHS JESÚS Administration Protocol Isosorbide Mononitrate 30 mg 01/06/19 10:00 01/06/19 11:54 Imdur - PO 30 mg DAILY JESÚS Administration Ketorolac Tromethamine 30 mg 01/06/19 09:00 Toradol Injection - IVPUSH Q6H PRN PAIN LEVEL 1-5 Lactobacillus Acidophilus 1 tab 01/06/19 12:15 Bacid - PO DAILY JESÚS Levothyroxine Sodium 50 mcg 01/06/19 07:00 01/06/19 06:03 Synthroid - PO 50 mcg ACBK JESÚS Administration Metoprolol Tartrate 25 mg 01/05/19 22:00 01/06/19 11:53 Lopressor - PO 25 mg BID JESÚS Administration Non-Formulary Medication 1 each 01/05/19 12:25 Subcutaneous Insulin Pump [Omnipod] MC ASDIR JESÚS [id number] Ethyl Esters 2 gm 01/05/19 22:00 01/06/19 11:49 Lovaza - PO 2 gm BID JESÚS Administration Ondansetron HCl 4 mg 01/05/19 12:15 01/05/19 13:40 Zofran Injection IVPUSH 4 mg Q6H PRN Administration NAUSEA AND/OR VOMITING Oxycodone HCl 5 mg 10/10/19 12:15 Roxicodone - PO Q3H PRN PAIN LEVEL 1-5 Oxycodone HCl 10 mg 01/05/19 12:15 01/06/19 05:45 Roxicodone - PO 10 mg Q3H PRN Administration PAIN LEVEL 6-10 Ramipril 2.5 mg 01/06/19 10:00 01/06/19 11:51 Altace - PO 2.5 mg DAILY JESÚS Administration Silver Sulfadiazine 1 applic 01/06/19 10:00 Silvadene - TP DAILY JESÚS Tramadol HCl 50 mg 01/05/19 12:15 Ultram - PO Q3H PRN PAIN LEVEL 1 - 3 Home Medications Medication Instructions Recorded Atorvastatin Calcium 20 mg PO DAILY tablet 09/13/12 Damascus-3 Fatty Acids [Damascus-3] 1,000 mg PO DAILY 04/06/14 Insulin Lispro [Humalog] 100 unit SQ ASDIR vial 09/28/16 Levothyroxine Sodium 50 mcg PO DAILY tablet 09/28/16 Subcutaneous Insulin Pump [Omnipod] 1 each MC ASDIR each 09/28/16 Fenofibrate,Micronized 135 mg PO DAILY 01/03/19 [Fenofibrate] Gabapentin 300 mg PO HS MDD 1-2 01/03/19 Isosorbide Mononitrate [Isosorbide 30 mg PO DAILY 01/03/19 Mononitrate ER] Metoprolol Tartrate 25 mg PO BID 01/03/19 Pioglitazone HCl [Actos] 15 mg PO DAILY 01/03/19 Zolpidem Tartrate [Ambien] 5 mg PO HS 01/03/19 traZODone HCL [Trazodone HCl] 100 mg PO HS 01/03/19 ASSESSMENT AND PLAN: Patient is a 73yo female with PMHx of DM2, uterine CA s/p PABLO, HTN, HLD, hypothyroidism, asthma, incontinence, L rotator cuff tear s/p repair, L eye blindness, vertigo presenting s/p fall with Fx of right humurus fx # POD#1 s/p Reverse Total Shoulder Replacement, Open RTC repair, Biceps tenotomy by dr. Dwyer .s/p Acute Right humerus fx due to mechanical fall # B/l LE swelling with cellulitis:improved, will discontinue IV abx cefazolin, continue Silvadene cream lower extremities with JOSE RAMON-Bandage . # Uncontrolled DM: SS with coverage, patient has her own pump to continue # NEETA: improving, will continue to monitor #HTN: continue current regimen #HLD : continue lipitor #Hypothyroidism: continue home levoxyl # Morbid obesity: diet modification and weight loss DVT PPX: hep sq
[2019-01-06] MEDS ORDERED: traMADol HCL 50 MG TABLET PO PRN (14:22)
--- NOTE | 2019-01-06 15:00 | PN ---
Progress Note (short form) - Note Progress Note: Ortho Pt seen and examined s/p right reverse TSA pod #1 Selected Entries 01/06/19 10:00 Temperature 98.5 F Pulse Rate 102 H Respiratory 20 Rate Blood Pressure 135/78 Laboratory Tests 01/06/19 08:00 WBC 10.7 H Hgb 10.1 L Hct 29.9 L Plt Count 208 dressing c/d/i, calf soft, nt, nvi a/p PT ROM exercises keep dressing intact ok to d/c from ortho pov will f/u in snf
[2019-01-06 16:05] VITALS: BP 136/78
--- NOTE | 2019-01-06 17:20 | DS ---
Physical Exam: SUBJECTIVE: Patient seen and examined. pt c/o pain responsive to pain meds. otherwise, OOB with assistance and urinating OBJECTIVE: Vital Signs Period Temp Pulse Resp BP Sys/Jacbos Pulse Ox Last 24 Hr 97.9 F-99.5 F 88-102 20-20 84-139/59-79 97-98 PHYSICAL EXAM GENERAL: The patient is awake, alert, and fully oriented, in no acute distress. HEAD: Normal with no signs of trauma. EYES: PERRL, extraocular movements intact, sclera anicteric, conjunctiva clear. No ptosis. ENT: Ears normal, nares patent, oropharynx clear without exudates, moist mucous membranes. LUNGS: Breath sounds equal, clear to auscultation bilaterally, no wheezes, no crackles, no accessory muscle use. HEART: Regular rate and rhythm, S1, S2 without murmur, rub or gallop. ABDOMEN: Soft, nontender, nondistended, normoactive bowel sounds, no guarding, no rebound, no hepatosplenomegaly, no masses. EXTREMITIES: 2+ pulses, warm, well-perfused, no edema. sling for R arm fracture. pain 4/10. pulse 2+ in RUE PSYCH: Normal mood, normal affect. SKIN: Warm, dry, normal turgor, b/l leg swelling with signs of cellulitis with silvadene and marcell wrapping LABS Laboratory Results - last 24 hr 01/05/19 01/06/19 01/06/19 21:00 05:59 08:00 WBC 10.7 H RBC 3.41 L Hgb 10.1 L Hct 29.9 L MCV 87.6 MCH 29.6 MCHC 33.8 RDW 15.1 Plt Count 208 MPV 7.8 Absolute Neuts (auto) 7.4 Neutrophils % 69.4 Lymphocytes % 20.7 Monocytes % 9.1 Eosinophils % 0.4 Basophils % 0.4 Nucleated RBC % 0 Sodium Potassium Chloride Carbon Dioxide Anion Gap BUN Creatinine Est GFR (CKD-EPI)AfAm Est GFR (CKD-EPI)NonAf POC Glucometer 349 243 Random Glucose Calcium 01/06/19 01/06/19 08:00 11:09 WBC RBC Hgb Hct MCV MCH MCHC RDW Plt Count MPV Absolute Neuts (auto) Neutrophils % Lymphocytes % Monocytes % Eosinophils % Basophils % Nucleated RBC % Sodium 135 L Potassium 4.6 Chloride 104 Carbon Dioxide 25 Anion Gap 6 L BUN 27.2 H Creatinine 1.4 H Est GFR (CKD-EPI)AfAm 42.49 Est GFR (CKD-EPI)NonAf 36.66 POC Glucometer 299 Random Glucose 294 H Calcium 8.8 R arm XR 2 views of the right shoulder reveal a fracture dislocation involving the proximal right humerus. The scapula, AC joint and upper ribs are intact. Correlation and follow-up recommended. Orthopedic consultation suggested. CXR Clear lungs. Right humeral fracture. A single view reveals a right shoulder replacement. The imaging is available for review. U/S legs There is a Tong's cyst in the right popliteal fossa measuring 3.1 x 0.8 cm as well as a Tong's cyst in the left popliteal fossa measuring 3.9 x 1 cm. No DVT HOSPITAL COURSE: Date of Admission:01/03/19 73 y.o. F PMH DM2, uterine CA s/p PABLO, HTN, HLD, hypothyroidism, asthma, incontinence, L rotator cuff tear s/p 3x repairs, L eye blindness, vertigo presenting s/p fall admitted for R humeral fracture. Pt s/p Reverse Total Shoulder Replacement, Open RTC repair, Biceps tenotomy on 01/05/19.pain control Oxy, fentanyl, tramadol,tylenol with frequent RUE pulse checks to monitor for compartment syndrome.pt seen by PT. barely able to ambulate and discharged to rehab for safe recovery and PT; F/u with Dr Dwyer within 1 week.On admission pt was found to have B/l LE swelling with cellulitis. Pt received cefazolin 1gm for 2 days and silvadene applied with marcell wraps. Pt was found to have a Cr of 1.5 which improved to 1.4 baseline is 0.9. Date of Discharge: 01/06/19 Minutes to complete discharge: 35 Discharge Summary Problems reviewed: Yes Reason For Visit: FRACTURE OF RIGHT HUMERUS Current Active Problems Inability to perform activities of daily living (Acute) Right humeral fracture (Acute) Condition: Stable - Instructions Diet, Activity, Other Instructions: You came into the ED because you fell and broke your right arm. we took some pictures of your arm which indeed comfirmed fracture of your right humerus.You were seen by orthopedic surgery, Dr Dwyer who operated on your arm; please follow up with Dr Dwyer within one week to ensure proper healing.While you were here, we found that you were having cellulitis in both of your legs. We applied the antibiotic cream silvadene, xyrofoam and marcell wraps; please continue to apply until complete healing and also continue to use Marcell bandages to help the fluid of your lower extremities. You were also having some issues with urination we had placed a Cevallos and removed once you were able. Your symptoms have improved and you are being discharged to a [facility] for continued recovery. Medications: Please DO NOT RESUME Nitrofurantoin as you no longer need it and you are found to be resistant to it. Please take probiotics instead for the rest of your life. Please resume your other home medications as prescribed. Please take oxycodone 5 mg for Pain rated 1-6 as needed ONCE every 3 hours Please take oxycodone 10 mg for Pain rated 7-10 as needed ONCE for 3 hours Follow up: Please follow up with your PCP within one week Please follow up with Dr Dwyer within one week. if you begin to experience tightness in your right arm, decrease sensation, weakness, chest pain, shortness of breath, please return to the Emergency room immediately. Referrals: Milind Rodriguez MD [Primary Care Provider] - Hernan Dwyer MD [Staff Physician] - 1 Week Disposition: RESIDENTIAL FACILITY - Home Medications Comprehensive Discharge Medication List: Ambulatory Orders Atorvastatin Calcium 20 mg PO DAILY tablet 09/13/12 Sentinel-3 Fatty Acids [Sentinel-3] 1,000 mg PO DAILY 04/06/14 Insulin Lispro [Humalog] 100 unit SQ ASDIR vial 09/28/16 Levothyroxine Sodium 50 mcg PO DAILY tablet 09/28/16 Fenofibrate,Micronized [Fenofibrate] 135 mg PO DAILY 01/03/19 Gabapentin 300 mg PO HS MDD 1-2 01/03/19 Isosorbide Mononitrate [Isosorbide Mononitrate ER] 30 mg PO DAILY 01/03/19 Metoprolol Tartrate 25 mg PO BID 01/03/19 Pioglitazone HCl [Actos] 15 mg PO DAILY 01/03/19 Zolpidem Tartrate [Ambien] 5 mg PO HS 01/03/19 traZODone HCL [Trazodone HCl] 100 mg PO HS 01/03/19 Lactobacillus Acidophilus [Bacid -] 1 tab PO DAILY #30 tab 01/06/19 Silver Sulfadiazine 1% Top Cr [Silvadene -] 1 applic TP DAILY #1 jar 01/06/19 oxyCODONE HCL [Roxicodone -] 5 mg PO Q3H PRN #24 tablet MDD 40 01/06/19 oxyCODONE HCL [Roxicodone -] 10 mg PO Q3H PRN #24 tablet MDD 80 01/06/19 Problem List - Problems (1) Contusion, shoulder /upper arm Code(s): [id number] - (2) Cough Code(s): R05 - COUGH (3) Inability to perform activities of daily living Code(s): R53.81 - OTHER MALAISE (4) Right humeral fracture Code(s): S42.301A - UNSP FRACTURE OF SHAFT OF HUMERUS, RIGHT ARM, INIT This patient is new to me today: No Emergency Visit: Yes ED Registration Date: 01/03/19 Care time: The patient presented to the Emergency Department on the above date and was hospitalized for further evaluation of their emergent condition. Critical Care patient: No - Discharge Referral Referred to [facility] No ATTENDING PHYSICIAN STATEMENT I saw and evaluated the patient. I reviewed the resident's note and discussed the case with the resident. I agree with the resident's findings and plan as documented. SUBJECTIVE: OBJECTIVE: ASSESSMENT AND PLAN:
--- NOTE | 2019-01-09 12:24 | PATH ---
Surgical Pathology Report Patient Name: TOMMY REEDER Med. Rec. #: [id number] /Age/Gender: 1945 (Age: 73) / F Account: [id number] Location: [address] [place] [address]/[facility] Taken: 01/05/2019 Received: 01/05/2019 Reported: 01/09/2019 Physicians: Hernan Dwyer M.D. Specimen(s) Received RIGHT HUMERAL HEAD Clinical History Right reverse total replacement shoulder, fracture of right humerus Final Diagnosis RIGHT HUMERAL HEAD, EXCISION: PORTION OF BONE WITH TRILINEAGE HEMATOPOIETIC MARROW. Comment: History of right humerus fracture noted. Electronically Signed Annalise Perry M.D. Gross Description Received in formalin labeled with "right humeral head", is a portion of predominantly cortical bone measuring 5 x 3 x 0.3 cm. The bone surface is smooth. Musical Instrument Mechanic sections submitted one cassette for decalcification PILI/01/05/2019 rishi/01/05/2019
== END 2019-01-06 17:33 | DRG 464 ==
LOC: JER 22:00 → JERBED 01-03 01:21 → J5S 01-03 23:17 → JSAMEDAYSX 01-05 12:41 → J6S 01-05 17:06
PROVIDERS: ADMIT Internal Medicine; ATTEND Internal Medicine
PROC: 0RRJ00Z Replacement of Right Shoulder Joint with Reverse Ball and Socket Synthetic Substitute, Open Approach (ICD-10-PCS; 2019-01-05)
PROC: 0LS30ZZ Reposition Right Upper Arm Tendon, Open Approach (ICD-10-PCS; 2019-01-05)
PROC: 0XU Anatomical Regions, Upper Extremities, Supplement (ICD-10-PCS; principal; 2019-01-05 09:30)
DX: S42.211A Unspecified displaced fracture of surgical neck of right humerus, initial encounter for closed fracture (principal); L03.115 Cellulitis of right lower limb; L03.116 Cellulitis of left lower limb; N17.9 Acute kidney failure, unspecified; E11.65 Type 2 diabetes mellitus with hyperglycemia; E03.9 Hypothyroidism, unspecified; R42 Dizziness and giddiness; M75.102 Unspecified rotator cuff tear or rupture of left shoulder, not specified as traumatic; I10 Essential (primary) hypertension; E78.5 Hyperlipidemia, unspecified; E66.01 Morbid (severe) obesity due to excess calories; Z68.34 Body mass index [BMI] 34.0-34.9, adult; R32 Unspecified urinary incontinence; W19.XXXA Unspecified fall, initial encounter; Y93.9 Activity, unspecified; Y92.89 Other specified places as the place of occurrence of the external cause; Y99.9 Unspecified external cause status
CPT/HCPCS: 36415; 71045-TC-FY; 73030-TC-RT-FY; 80048; 80053; 81003; 82550; 82553; 82962; 83036; 83735; 84100; 84443; 85025; 85027; 85610; 85730; 86850; 86900; 86901; 87086; 87186; 88304-TC; 88311-TC; 93005; 93010; 93306-TC; 93970-TC; 94010; 94760; 97116-GP; 97161-GP; 99285-25; J1644; J7030

== ENCOUNTER 2019-02-10 18:19 | Observation (INO) | payer OTHER, BC ==
[2019-02-10] MEDS ORDERED: SODIUM CHLORIDE 0.9% 1000 ML INFUS.BAG IV ONE (19:24)
[2019-02-10 20:06] LABS: BASO % 0.6 % (0-2.0); EOS % 1.3 % (0-4.5); HEMATOCRIT 30.4 % (32.4-45.2); HEMOGLOBIN 10.1 GM/dL (10.7-15.3); LYMPH % 37.7 % (8-40); MCH 28.2 pg (25.7-33.7); MCHC 33.2 g/dl (32.0-36.0); MEAN CELL VOLUME 85.1 fl (80-96); MEAN PLT VOLUME 7.2 fl (7.5-11.1); MONO % 8.9 % (3.8-10.2); NEUT % 51.5 % (42.8-82.8); PLATELET COUNT 262 K/MM3 (134-434); RBC 3.58 M/mm3 (3.60-5.2); RDW 16.6 % (11.6-15.6); WHITE BLOOD COUNT 6.7 K/mm3 (4.0-10.0)
[2019-02-10 20:33] LABS: ALBUMIN 3.1 g/dl (3.4-5.0); BILIRUBIN,TOTAL 0.3 mg/dL (0.2-1); CALCIUM 8.9 mg/dL (8.5-10.1); CREATININE 1.3 mg/dL (0.55-1.3); POTASSIUM 4.8 mmol/L (3.5-5.1); TOT PROT 6.1 g/dl (6.4-8.2)
--- NOTE | 2019-02-10 22:35 | PDOC ---
Documentation entered by Kei Apodaca SCRIBE, acting as scribe for Melly Iyer MD. Melly Iyer MD: This documentation has been prepared by the Paulie crouch Daniel, SCRIBE, under my direction and personally reviewed by me in its entirety. I confirm that the documentation accurately reflects all work, treatment, procedures, and medical decision making performed by me. History of Present Illness - General Chief Complaint: Nausea/Vomiting Stated Complaint: VOMITING History Source: Patient Exam Limitations: No Limitations - History of Present Illness Initial Comments: 02/10/19 19:38 The patient is a 73 year old female with a past medical history of hysterectomy , HTN, HLD, diabetes, hypothyroidism, CAD, frequent UTIs and asthma here today from [facility] (rehab s/p shoulder surgery) for evaluation of nausea and vomiting. The patient reports that she has had episodes of nausea and vomiting for 1 week. She also notes that she has been constipated until recently but is now having episodes of diarrhea. Patient denies headache, lightheadedness. Denies fever, chills. Denies chest pain, shortness of breath. Allergies: NKDA PCP: Milind Rodriguez Past History - Past Medical History Allergies/Adverse Reactions: Allergies Allergy/AdvReac Type Severity Reaction Status Date / Time No Known Drug Allergies Allergy Verified 02/10/19 18:49 CATS Allergy Intermediate Difficulty Uncoded 02/10/19 18:49 Breathing DOGS Allergy Intermediate Difficulty Uncoded 02/10/19 18:49 Breathing NKDA Allergy Uncoded 02/10/19 18:49 Home Medications: Ambulatory Orders Atorvastatin Calcium 20 mg PO DAILY tablet 09/13/12 Russell-3 Fatty Acids [Russell-3] 1,000 mg PO DAILY 04/06/14 Insulin Lispro [Humalog] 100 unit SQ ASDIR vial 09/28/16 Levothyroxine Sodium 50 mcg PO DAILY tablet 09/28/16 Fenofibrate,Micronized [Fenofibrate] 135 mg PO DAILY 01/03/19 Gabapentin 300 mg PO HS MDD 1-2 01/03/19 Isosorbide Mononitrate [Isosorbide Mononitrate ER] 30 mg PO DAILY 01/03/19 Metoprolol Tartrate 25 mg PO BID 01/03/19 Pioglitazone HCl [Actos] 15 mg PO DAILY 01/03/19 Zolpidem Tartrate [Ambien] 5 mg PO HS 01/03/19 traZODone HCL [Trazodone HCl] 100 mg PO HS 01/03/19 Lactobacillus Acidophilus [Bacid -] 1 tab PO DAILY #30 tab 01/06/19 Silver Sulfadiazine 1% Top Cr [Silvadene -] 1 applic TP DAILY #1 jar 01/06/19 oxyCODONE HCL [Roxicodone -] 5 mg PO Q3H PRN #24 tablet MDD 40 01/06/19 oxyCODONE HCL [Roxicodone -] 10 mg PO Q3H PRN #24 tablet MDD 80 01/06/19 Anemia: No Asthma: Yes (ALLERGY INDUCED-CONTROLLED) Cancer: Yes (UTERINE 2001) Cardiac Disorders: No CVA: No COPD: No CHF: No Dementia: No Diabetes: Yes (2005) GI Disorders: No Disorders: Yes (INCONTINENCE) HTN: No Hypercholesterolemia: Yes Liver Disease: No Seizures: No Thyroid Disease: Yes (HYPOTHYROIDISM) - Surgical History Abdominal Surgery: Yes Appendectomy: Yes (1965) Cardiac Surgery: No Cholecystectomy: Yes (1965) Lung Surgery: No Neurologic Surgery: No Orthopedic Surgery: No - Psycho Social/Smoking Cessation Hx Smoking History: Never smoked Have you smoked in the past 12 months: No Number of Cigarettes Smoked Daily: 20 If you are a former smoker, when did you quit?: 2 WEEKS AGO Information on smoking cessation initiated: No Hx Alcohol Use: No Drug/Substance Use Hx: No Substance Use Type: None Hx Substance Use Treatment: No Review of Systems - Review of Systems Able to Perform ROS?: Yes Comments:: 02/10/19 19:38 GENERAL/CONSTITUTIONAL: No fever or chills. No weakness. HEAD, EYES, EARS, NOSE AND THROAT: No change in vision. No ear pain or discharge. No sore throat. CARDIOVASCULAR: No chest pain or shortness of breath. RESPIRATORY: No cough, wheezing, or hemoptysis. GASTROINTESTINAL: +nausea, vomiting, diarrhea. GENITOURINARY: No dysuria, frequency, or change in urination. MUSCULOSKELETAL: No joint or muscle swelling or pain. No neck or back pain. SKIN: No rash NEUROLOGIC: No headache, vertigo, loss of consciousness, or change in strength/ sensation. ENDOCRINE: No increased thirst. No abnormal weight change. HEMATOLOGIC/LYMPHATIC: No anemia, easy bleeding, or history of blood clots. ALLERGIC/IMMUNOLOGIC: No hives or skin allergy. *Physical Exam - Vital Signs Last Vital Signs Temp Pulse Resp BP Pulse Ox 97.6 F 80 16 91/40 L 97 02/10/19 18:20 02/10/19 18:20 02/10/19 18:20 02/10/19 18:20 02/10/19 18:20 - Physical Exam Comments: 02/10/19 22:34 awake alert lungs clear bilat heart rrr no mrg abd soft nt nd ex wwp bilat edema. nonpitting. skin warm and dry. rectal with stool in vault soft, ED Treatment Course - LABORATORY CBC & Chemistry Diagram: 02/10/19 19:46 02/10/19 19:46 - RADIOLOGY Radiology Studies Ordered: Category Date Time Status ABDOMEN & PELVIS CT WITH CONTR [CT] Stat CT Scan 02/10/19 19:24 Ordered Medical Decision Making - Medical Decision Making 02/10/19 19:29 73 yo h/o DM HTN HLD recent shoulder surgery december this year, in rehab at [facility], With history of recent UTIs with ESBL here today complaining of constipation and now loose watery stool with nausea vomiting for 1 week. Patient On my exam the patient is awake alert no cough has no abdominal complaints of pain. States initially she was very constipated but now is having watery stool coming out she has been incontinent of urine and stool for some time since her shoulder surgery patient has been relatively nonambulatory she is on prophylactic heparin My exam the patient is awake alert no acute distress lungs are clear bilaterally heart is regular no murmurs rubs or gallops abdomen is soft nontender obese rectal exam demonstrates soft stool in the vault with runny stool surrounding it there is no gross blood noted. Extremities are with bilateral nonpitting edema neurologically she is awake alert and oriented x3 Differential includes elect light of normalities such as hyponatremia, renal failure, anemia, obstruction causing her normal nausea and vomiting due to multiple abdominal surgeries. Recurrent UTI or other infection such as pneumonia. Plan CT abdomen pelvis basic labs chest x-ray EKG UA urine culture Zofran for her nausea and vomiting and IV hydration 02/10/19 22:[address] a/p creatinine 1.3 BUN elevated. willl hydrate pt prior to ct a/p for protection prior to iv contrast. Discharge - Follow up/Referral Referrals: Milind Rodriguez MD [Primary Care Provider] - - Patient Discharge Instructions - Post Discharge Activity
[2019-02-11 01:50] LABS: PH,URINE 7.5 (5.0-8.0); URINE APPEARANCE TURBID; URINE BILIRUBIN NEGATIVE (NEGATIVE); URINE COLOR YELLOW; URINE GLUCOSE (UA) NEGATIVE (NEGATIVE); URINE KETONE NEGATIVE (NEGATIVE); URINE LEUK ESTERASE NEGATIVE (NEGATIVE); URINE NITRITE NEGATIVE (NEGATIVE); URINE PROTEIN NEGATIVE (NEGATIVE)
--- NOTE | 2019-02-11 02:42 | PDOC ---
*Physical Exam - Vital Signs Last Vital Signs Temp Pulse Resp BP Pulse Ox 97.6 F 80 16 91/40 L 97 02/10/19 18:20 02/10/19 18:20 02/10/19 18:20 02/10/19 18:20 02/10/19 18:20 ED Treatment Course - LABORATORY CBC & Chemistry Diagram: 02/10/19 19:46 02/10/19 19:46 - ADDITIONAL ORDERS Additional order review: Laboratory Results 02/11/19 02/10/19 02/10/19 00:32 19:46 19:46 Sodium 138 Potassium 4.8 Chloride 107 Carbon Dioxide 26 Anion Gap 5 L BUN 28.0 H Creatinine 1.3 Est GFR (CKD-EPI)AfAm 46.47 Est GFR (CKD-EPI)NonAf 40.10 Random Glucose 145 H Lactic Acid 1.1 Calcium 8.9 Total Bilirubin 0.3 AST 13 L ALT 12 L Alkaline Phosphatase 59 Total Protein 6.1 L Albumin 3.1 L Urine Color Yellow Urine Appearance Turbid Urine pH 7.5 D Ur Specific [place] 1.021 Urine Protein Negative Urine Glucose (UA) Negative Urine Ketones Negative Urine Blood Negative Urine Nitrite Negative Urine Bilirubin Negative Urine Urobilinogen 1.0 Ur Leukocyte Esterase Negative 02/10/19 19:46 RBC 3.58 L MCV 85.1 MCHC 33.2 RDW 16.6 H MPV 7.2 L Neutrophils % 51.5 D Lymphocytes % 37.7 D Monocytes % 8.9 Eosinophils % 1.3 D Basophils % 0.6 - Medications Given in the ED: ED Medications Discontinued Medications Generic Name Dose Route Start Last Admin Trade Name Freq PRN Reason Stop Dose Admin Sodium Chloride 1,000 ml 02/10/19 19:24 02/10/19 20:11 Normal Saline - IV 02/10/19 19:25 1,000 ml ONCE ONE Administration Medical Decision Making - Medical Decision Making 02/11/19 02:33 I received Ms. Montemayor was signed out to me She presents to the ER with 1 week of vomiting, inability to tolerate po Pt has had constipation Rectal examination revealed hard stools Pt has had diarrhea CT: EXAM: CT ABDOMEN WITH CONTRAST AND CT PELVIS WITH CONTR HISTORY: 73-Year-Old Female With Abdominal Pain COMPARISON: None. CONTRAST: 98 mL of Omnipaque intravenous contrast FINDINGS: Basilar atelectasis and scarring. Calcified coronary artery arteriosclerosis. Gallbladder is not identified. Nodular liver contour hepatomegaly and steatosis most likely associated with cirrhosis and regenerating liver nodules. Mild nonspecific splenomegaly most likely due to portal venous hypertension with mildly enlarged portal vein consistent with portal venous hypertension. Mild atrophy of the pancreas. Adrenal glands and kidneys appear unremarkable. No nephrolithiasis or hydronephrosis. Moderate to severe arteriosclerosis of the aorta and aortic branches and pelvic vasculature. Small hiatal hernia. Lack of oral contrast limits this exam. Noncontrast evaluation stomach small bowel appear unremarkable. Appendix is not identified. Diverticulosis. Constipation with rectal impaction. Nonspecific lower rectal wall thickening most likely due to infectious or inflammatory proctitis. Status post hysterectomy. Moderate bladder distention. Moderate degenerative disc disease. Moderate degenerative joint disease of the lower lumbar facets. Mild atrophy of the body wall muscles. Surgical clips in the anterior inferior pelvic wall. Significant subcutaneous adipose tissue is incompletely included within the [id number]. IMPRESSION: Calcified coronary artery arteriosclerosis. Nodular liver contour hepatomegaly and steatosis most likely associated with cirrhosis and regenerating liver nodules. Mild nonspecific splenomegaly most likely due to portal venous hypertension with mildly enlarged portal vein consistent with portal venous hypertension. Moderate to severe arteriosclerosis of the aorta and aortic branches and pelvic vasculature. Small hiatal hernia. Diverticulosis diverticulosis with constipation with rectal impaction and mild nonspecific lower rectal wall thickening most likely due to infectious or inflammatory proctitis. CT demonstrates constipation Will need Enema 02/11/19 02:47 Call placed to hospitalist Admitted to hospitalist service 02/11/19 03:53 Discharge - Discharge Information Problems reviewed: No Clinical Impression/Diagnosis: Constipation Qualifiers: Constipation type: other constipation type Qualified Code(s): K59.09 - Other constipation Condition: Stable - Admission Yes - Follow up/Referral - Patient Discharge Instructions - Post Discharge Activity
[2019-02-11] MEDS ORDERED: SODIUM PHOSPHATE/NA BIPHOS 133 ML ENEMA PR ONE (04:31)
--- NOTE | 2019-02-11 04:31 | PN ---
Teaching Attending Note Name of Resident: Keyla Adkins ATTENDING PHYSICIAN STATEMENT I saw and evaluated the patient. I reviewed the resident's note and discussed the case with the resident. I agree with the resident's findings and plan as documented. SUBJECTIVE: 73 year old female with a past medical history of hysterectomy, HTN, HLD, diabetes, hypothyroidism, CAD, frequent UTIs and asthma Sent in from [facility] (rehab s/p shoulder surgery). Patient was complaining of nausea and vomiting for up to 1 week. There is no blood in her vomit reported.She reports bloating sensation and has been constipated for the last month. OBJECTIVE: Last Vital Signs Temp Pulse Resp BP Pulse Ox 97.6 F 80 16 91/40 L 97 02/10/19 18:20 02/10/19 18:20 02/10/19 18:20 02/10/19 18:20 02/10/19 18:20 GENERAL: Well developed, well nourished. Awake and alert. No acute distress. HEENT: Normocephalic, atraumatic. PERRLA, EOMI. No conjunctival pallor. Sclera are non- icteric. Moist mucous membranes. Oropharynx is clear. NECK: Supple. Full ROM. No JVD. Carotid pulses 2+ and symmetric, without bruits. No thyromegaly. No lymphadenopathy. CARDIOVASCULAR: Regular rate and rhythm. No murmurs, rubs, or gallops. Distal pulses are 2+ and symmetric. PULMONARY: No evidence of respiratory distress. Lungs clear to auscultation bilaterally. No wheezing, rales or rhonchi. ABDOMINAL: Soft. Non-tender. Distended, dull to percussion, bowel sounds present in 4 quadrants MUSCULOSKELETAL Normal range of motion at all joints. No bony deformities or tenderness. No CVA tenderness. EXTREMITIES: No cyanosis. No clubbing. No edema. No calf tenderness. SKIN: Warm and dry. Normal capillary refill. No rashes. No jaundice. Bruising visible on abdomen PSYCHIATRIC: Cooperative. Good eye contact. Appropriate mood and affect. Abnormal Lab Results 02/10/19 02/10/19 19:46 19:46 RBC 3.58 L Hgb 10.1 L Hct 30.4 L RDW 16.6 H MPV 7.2 L Anion Gap 5 L BUN 28.0 H Random Glucose 145 H AST 13 L ALT 12 L Total Protein 6.1 L Albumin 3.1 L Imaging studies reviewed EXAM: CT ABDOMEN WITH CONTRAST AND CT PELVIS WITH CONTR HISTORY: 73-Year-Old Female With Abdominal Pain COMPARISON: None. CONTRAST: 98 mL of Omnipaque intravenous contrast FINDINGS: Basilar atelectasis and scarring. Calcified coronary artery arteriosclerosis. Gallbladder is not identified. Nodular liver contour hepatomegaly and steatosis most likely associated with cirrhosis and regenerating liver nodules. Mild nonspecific splenomegaly most likely due to portal venous hypertension with mildly enlarged portal vein consistent with portal venous hypertension. Mild atrophy of the pancreas. Adrenal glands and kidneys appear unremarkable. No nephrolithiasis or hydronephrosis. Moderate to severe arteriosclerosis of the aorta and aortic branches and pelvic vasculature. Small hiatal hernia. Lack of oral contrast limits this exam. Noncontrast evaluation stomach small bowel appear unremarkable. Appendix is not identified. Diverticulosis. Constipation with rectal impaction. Nonspecific lower rectal wall thickening most likely due to infectious or inflammatory proctitis. Status post hysterectomy. Moderate bladder distention. Moderate degenerative disc disease. Moderate degenerative joint disease of the lower lumbar facets. Mild atrophy of the body wall muscles. Surgical clips in the anterior inferior pelvic wall. Significant subcutaneous adipose tissue is incompletely included within the [id number]. IMPRESSION: Calcified coronary artery arteriosclerosis. Nodular liver contour hepatomegaly and steatosis most likely associated with cirrhosis and regenerating liver nodules. Mild nonspecific splenomegaly most likely due to portal venous hypertension with mildly enlarged portal vein consistent with portal venous hypertension. Moderate to severe arteriosclerosis of the aorta and aortic branches and pelvic vasculature. Small hiatal hernia. Diverticulosis diverticulosis with constipation with rectal impaction and mild nonspecific lower rectal wall thickening most likely due to infectious or inflammatory proctitis. ASSESSMENT AND PLAN: 73-year-old woman with severe constipation likely leading to decreased appetite and nausea and vomiting. Possibly also gastroenteritis.CT of abdomen pelvis showed diverticulosis along with rectal wall thickening which is likely secondary to underlying constipation Admit to MedSurg IV fluid hydration Zofran if nausea or vomiting Fleets enema for constipation Limit the use of opiates and actives as these can slow bowel transit time Clear liquid diet and advance diet as tolerated Stool softener #Hypothyroidism Send TSH Home dose levothyroxine #Diabetes mellitus NovoLog sliding scale Send A1c Heparin subcutaneous for DVT prophylaxis
[2019-02-11] MEDS ORDERED: SENNOSIDES 8.6MG TABLET (FP) PO SCH (04:37)
[2019-02-11] MEDS ORDERED: DEXTROSE 5%-NORMAL SALINE 1,000 ML IV SCH (04:45)
--- NOTE | 2019-02-11 05:18 | HP ---
CHIEF COMPLAINT: Nausea and vomiting, inability to tolerate diet PCP: eJnnifer HISTORY OF PRESENT ILLNESS: 73F w/ pmh of HTN, HLD, IDDM, hypothyroidism, CAD, recurrent UTIs, asthma, uterine CA(s/p Hysterectomy), Left rotator cuff tear(repair x3), Right Reverse Total Shoulder Replacement + Open RTC repair + Biceps tenotomy(Reymundo, 01/05/19 ) sent from [place] for persistent NV x1 week. Has had poor PO intake, has thirst, no appetite, sipping only broth for dinner. For, last week has had consistent NBNB vomiting after broth. Thinks that abd has been distended. Has not had BM in the past week. Has daily flatus. Pt states that she has been requesting an enema at [facility]. Takes oxycodone 5mg twice daily since her shoulder surgery. Spends most of time in bed with diaper, getting heparin shots for DVT ppx. ER course was notable for: (1) NS 1L x1 (2) CT A/P: nodular liver contour suggestive of cirrhosis/steatosis; splenomegaly, hiatal hernia, constipation w/ rectal impaction, lower rectal wall thickening Recent Travel: neg PAST MEDICAL HISTORY: HTN, HLD, IDDM, hypothyroidism, CAD, recurrent UTIs, asthma, uterine CA(s/p Hysterectomy), Left rotator cuff tear(repair x3), Right Shoulder Repair PAST SURGICAL HISTORY: Right Reverse Total Shoulder Replacement + Open RTC repair + Biceps tenotomy( Reymundo, 01/05/19) Hysterectomy Social History: Smoking: Former 2ppd x30ys; quit 10ys prior Alcohol: denies Drugs: denies Allergies No Known Drug Allergies Allergy (Verified 02/10/19 18:49) CATS Allergy (Intermediate, Uncoded 02/10/19 18:49) Difficulty Breathing DOGS Allergy (Intermediate, Uncoded 02/10/19 18:49) Difficulty Breathing NKDA Allergy (Uncoded 02/10/19 18:49) HOME MEDICATIONS: Home Medications Medication Instructions Recorded Atorvastatin Calcium 20 mg PO DAILY tablet 09/13/12 Rutledge-3 Fatty Acids [[place]-3] 1,000 mg PO DAILY 04/06/14 Insulin Lispro [Humalog] 100 unit SQ ASDIR vial 09/28/16 Levothyroxine Sodium 50 mcg PO DAILY tablet 09/28/16 Fenofibrate,Micronized 135 mg PO DAILY 10/08/19 [Fenofibrate] Gabapentin 300 mg PO HS MDD 1-2 01/03/19 Isosorbide Mononitrate [Isosorbide 30 mg PO DAILY 01/03/19 Mononitrate ER] Metoprolol Tartrate 25 mg PO BID 01/03/19 Zolpidem Tartrate [Ambien] 5 mg PO HS 01/03/19 traZODone HCL [Trazodone HCl] 100 mg PO HS 01/03/19 Lactobacillus Acidophilus [Bacid -] 1 tab PO DAILY #30 tab 01/06/19 Clotrimazole/Betamet Diprop 1 applic TP BID 02/11/19 [Lotrisone Cream (Small Tube)] Fluticasone Propionate [Flonase 9.9 ml NS DAILY 02/11/19 Allergy Relief] Heparin - 5,000 unit SQ BID 02/11/19 Melatonin 10 mg PO HS 02/11/19 Ondansetron [Zofran *Odt*] 4 mg SL Q6H PRN 02/11/19 Polyethylene Glycol 3350 17 gm PO DAILY 02/11/19 oxyCODONE HCL [Roxicodone -] 10 mg PO Q6H MDD 80 02/11/19 REVIEW OF SYSTEMS CONSTITUTIONAL: loss of appetite Absent: fever, chills, diaphoresis, generalized weakness, malaise, weight change HEENT: Absent: rhinorrhea, nasal congestion, throat pain, throat swelling, difficulty swallowing CARDIOVASCULAR: Absent: chest pain, syncope, palpitations, irregular heart rate, lightheadedness , peripheral edema RESPIRATORY: Absent: cough, shortness of breath, dyspnea with exertion, orthopnea, wheezing, stridor, hemoptysis GASTROINTESTINAL: abdominal distension, nausea, vomiting, constipation Absent: abdominal pain, diarrhea, melena, hematochezia GENITOURINARY: urinary incontinence Absent: dysuria, frequency, urgency, hesitancy, hematuria, flank pain, genital pain MUSCULOSKELETAL: Absent: myalgia, arthralgia, joint swelling, back pain, neck pain NEUROLOGIC: Absent: headache, focal weakness or paresthesias, dizziness, unsteady gait, seizure, mental status changes, bladder or bowel incontinence PHYSICAL EXAMINATION Vital Signs - 24 hr 02/10/19 18:20 Temperature 97.6 F Pulse Rate 80 Respiratory 16 Rate Blood Pressure 91/40 L O2 Sat by Pulse 97 Oximetry (%) GENERAL: A&Ox3, NAD, obese HEAD: NC/AT EYES: sclera anicteric, conjunctiva clear. No lid lag. EARS, NOSE, THROAT: Moist mucous membranes. NECK: Normal range of motion, supple without lymphadenopathy, JVD, or masses. LUNGS: Breath sounds equal, clear to auscultation bilaterally. No wheezes, and no crackles. No accessory muscle use. Breathing comfortably on RA HEART: Regular rate and rhythm, normal S1 and S2 without murmur, rub or gallop. ABDOMEN: well-healed midline incisional scar. Soft, mildly distended, firmness to percussion. Rectal: normal rectal tone, no firm stool appreciated in proximal rectal vault, thin watery stool on glove. Buttock with pressure wound erythema MUSCULOSKELETAL: Normal range of motion at all joints. No bony deformities or tenderness. No CVA tenderness. UPPER EXTREMITIES: 2+ pulses, warm, well-perfused. No cyanosis. RUE, shoulder ABduction less than 45degrees on AROM. LOWER EXTREMITIES: 2+ pulses, warm, well-perfused. No calf tenderness. No peripheral edema. NEUROLOGICAL: Normal speech Laboratory Results - last 24 hr 02/10/19 02/10/19 02/10/19 19:46 19:46 19:46 WBC 6.7 RBC 3.58 L Hgb 10.1 L Hct 30.4 L MCV 85.1 MCH 28.2 MCHC 33.2 RDW 16.6 H Plt Count 262 D MPV 7.2 L Absolute Neuts (auto) 3.5 Neutrophils % 51.5 D Lymphocytes % 37.7 D Monocytes % 8.9 Eosinophils % 1.3 D Basophils % 0.6 Nucleated RBC % 0 Sodium 138 Potassium 4.8 Chloride 107 Carbon Dioxide 26 Anion Gap 5 L BUN 28.0 H Creatinine 1.3 Est GFR (CKD-EPI)AfAm 46.47 Est GFR (CKD-EPI)NonAf 40.10 Random Glucose 145 H Lactic Acid 1.1 Calcium 8.9 Total Bilirubin 0.3 AST 13 L ALT 12 L Alkaline Phosphatase 59 Total Protein 6.1 L Albumin 3.1 L Urine Color Urine Appearance Urine pH Ur Specific [place] Urine Protein Urine Glucose (UA) Urine Ketones Urine Blood Urine Nitrite Urine Bilirubin Urine Urobilinogen Ur Leukocyte Esterase 02/11/19 00:32 WBC RBC Hgb Hct MCV MCH MCHC RDW Plt Count MPV Absolute Neuts (auto) Neutrophils % Lymphocytes % Monocytes % Eosinophils % Basophils % Nucleated RBC % Sodium Potassium Chloride Carbon Dioxide Anion Gap BUN Creatinine Est GFR (CKD-EPI)AfAm Est GFR (CKD-EPI)NonAf Random Glucose Lactic Acid Calcium Total Bilirubin AST ALT Alkaline Phosphatase Total Protein Albumin Urine Color Yellow Urine Appearance Turbid Urine pH 7.5 D Ur Specific [place] 1.021 Urine Protein Negative Urine Glucose (UA) Negative Urine Ketones Negative Urine Blood Negative Urine Nitrite Negative Urine Bilirubin Negative Urine Urobilinogen 1.0 Ur Leukocyte Esterase Negative ASSESSMENT/PLAN: 73F w/ pmh of HTN, HLD, IDDM, hypothyroidism, CAD, recurrent UTIs, asthma, uterine CA(s/p Hysterectomy), Left rotator cuff tear(repair x3), Right Reverse Total Shoulder Replacement + Open RTC repair + Biceps tenotomy(Reymundo, 01/05/19 ) sent from [place] for persistent NV x1 week. CT A/P suggestive of fecal impaction. NV likely 2/2 to slow colonic motility 2/2 chronic opioid usage. Will initiate aggressive bowel regimen # nausea/vomiting --likely 2/2 to chronic constipation from chronic opioid usage > CT A/P(02/10/19): nodular liver contour suggestive of cirrhosis/steatosis; splenomegaly, hiatal hernia, constipation w/ rectal impaction, lower rectal wall thickening - elevate HOB - avoid opioids - zofran PRN - bowel regimen: --senna --miralax --fleets enema # chronic Right shoulder pain - monitor - avoid opioids - consider PT # hypothyroidism - fu TSH - med rec for home levothyroxine # IDDM - fu HbA1c - ISS FEN - CLD, ADAT - NS @75 #DVT ppx - subqhep Family Medical History Family Hx Cardiac Disorders: Sister (cousin w/ cardiac disease) Visit type - Emergency Visit Emergency Visit: Yes ED Registration Date: 02/11/19 Care time: The patient presented to the Emergency Department on the above date and was hospitalized for further evaluation of their emergent condition. - New Patient This patient is new to me today: Yes Date on this admission: 02/11/19 - Critical Care Critical Care patient: No ATTENDING PHYSICIAN STATEMENT I saw and evaluated the patient. I reviewed the resident's note and discussed the case with the resident. I agree with the resident's findings and plan as documented. SUBJECTIVE: OBJECTIVE: ASSESSMENT AND PLAN:
[2019-02-11] MEDS ORDERED: ONDANSETRON 4 MG/2 ML VIAL IVPUSH PRN (05:29)
[2019-02-11] MEDS: POLYETHYLENE GLYCOL 3350 119 GM BTL PO SCH ×2 (05:35→10:00)
[2019-02-11] MEDS: DOCUSATE SODIUM 100 MG CAPSULE (FP) PO SCH ×2 (05:35→09:05)
[2019-02-11] MEDS ORDERED: SODIUM CHLORIDE 1,000 ML IV SCH ×2 (05:45→07:54)
[2019-02-11 06:10] LABS: BASO % 0.6 % (0-2.0); EOS % 1.1 % (0-4.5); HEMATOCRIT 32.2 % (32.4-45.2); HEMOGLOBIN 10.7 GM/dL (10.7-15.3); LYMPH % 31.7 % (8-40); MCH 28.5 pg (25.7-33.7); MCHC 33.3 g/dl (32.0-36.0); MEAN CELL VOLUME 85.6 fl (80-96); MEAN PLT VOLUME 7.3 fl (7.5-11.1); MONO % 8.7 % (3.8-10.2); NEUT % 57.9 % (42.8-82.8); PLATELET COUNT 240 K/MM3 (134-434); RBC 3.76 M/mm3 (3.60-5.2); RDW 17.1 % (11.6-15.6); WHITE BLOOD COUNT 5.4 K/mm3 (4.0-10.0)
[2019-02-11 06:29] LABS: BLOOD UREA NITROGEN 21.3 mg/dL (7-18); CALCIUM 9.1 mg/dL (8.5-10.1); MAGNESIUM 1.7 mg/dL (1.8-2.4); PHOSPHOROUS 2.6 mg/dL (2.5-4.9); POTASSIUM 5.2 mmol/L (3.5-5.1)
[2019-02-11] MEDS ORDERED: LEVOTHYROXINE NA 50 MCG TABLET (FP) PO ONE (07:53)
[2019-02-11] MEDS: INSULIN SLIDING SCALE (NOVOLOG) 1 VIAL SQ SCH ×2 (07:55→12:03)
[2019-02-11 08:16] VITALS: BP 139/62
[2019-02-11] MEDS ORDERED: HEPARIN NA (PORCINE) 5,000 UNITS/ML 1ML VIAL SQ SCH (10:00)
[2019-02-11 11:00] VITALS: BMI 34.9
--- NOTE | 2019-02-11 11:37 | PN ---
Physical Exam: SUBJECTIVE: Patient seen and examined, reports had enema this AM with multiple BM. Denies any nausea, vomiting or abdominal pain. Eager to go back to rehab. OBJECTIVE: Vital Signs Period Temp Pulse Resp BP Sys/Jacobs Pulse Ox Last 24 Hr 97.6 F-98.3 F 80-94 16-18 91-139/40-62 97-98 Intake & Output 02/08/19 02/09/19 02/10/19 02/11/19 23:59 23:59 23:59 23:59 Weight 230 lb 258 lb GENERAL:lying in bed in no acute distress neck: soft, supple HEENT: PERRL, EOMI extremities: Bilateral shoulder limited ROM, Right markedly limited than left Abdomen:Soft, obese, NT throughout, pos bowel sounds Extremities: no edema Laboratory Results - last 24 hr 02/10/19 02/10/19 02/10/19 19:46 19:46 19:46 WBC 6.7 RBC 3.58 L Hgb 10.1 L Hct 30.4 L MCV 85.1 MCH 28.2 MCHC 33.2 RDW 16.6 H Plt Count 262 D MPV 7.2 L Absolute Neuts (auto) 3.5 Neutrophils % 51.5 D Lymphocytes % 37.7 D Monocytes % 8.9 Eosinophils % 1.3 D Basophils % 0.6 Nucleated RBC % 0 Sodium 138 Potassium 4.8 Chloride 107 Carbon Dioxide 26 Anion Gap 5 L BUN 28.0 H Creatinine 1.3 Est GFR (CKD-EPI)AfAm 46.47 Est GFR (CKD-EPI)NonAf 40.10 POC Glucometer Random Glucose 145 H Hemoglobin A1c % Lactic Acid 1.1 Calcium 8.9 Phosphorus Magnesium Total Bilirubin 0.3 AST 13 L ALT 12 L Alkaline Phosphatase 59 Total Protein 6.1 L Albumin 3.1 L TSH Urine Color Urine Appearance Urine pH Ur Specific [place] Urine Protein Urine Glucose (UA) Urine Ketones Urine Blood Urine Nitrite Urine Bilirubin Urine Urobilinogen Ur Leukocyte Esterase 02/11/19 02/11/19 02/11/19 00:32 05:27 05:27 WBC 5.4 RBC 3.76 Hgb 10.7 Hct 32.2 L MCV 85.6 MCH 28.5 MCHC 33.3 RDW 17.1 H Plt Count 240 MPV 7.3 L Absolute Neuts (auto) 3.1 Neutrophils % 57.9 Lymphocytes % 31.7 Monocytes % 8.7 Eosinophils % 1.1 Basophils % 0.6 Nucleated RBC % 0 Sodium 137 Potassium 5.2 H Chloride 107 Carbon Dioxide 26 Anion Gap 4 L BUN 21.3 H Creatinine 1.0 Est GFR (CKD-EPI)AfAm 63.82 Est GFR (CKD-EPI)NonAf 55.07 POC Glucometer Random Glucose 161 H Hemoglobin A1c % Lactic Acid Calcium 9.1 Phosphorus 2.6 Magnesium 1.7 L Total Bilirubin AST ALT Alkaline Phosphatase Total Protein Albumin TSH 1.45 Urine Color Yellow Urine Appearance Turbid Urine pH 7.5 D Ur Specific [place] 1.021 Urine Protein Negative Urine Glucose (UA) Negative Urine Ketones Negative Urine Blood Negative Urine Nitrite Negative Urine Bilirubin Negative Urine Urobilinogen 1.0 Ur Leukocyte Esterase Negative 02/11/19 02/11/19 05:27 07:10 WBC RBC Hgb Hct MCV MCH MCHC RDW Plt Count MPV Absolute Neuts (auto) Neutrophils % Lymphocytes % Monocytes % Eosinophils % Basophils % Nucleated RBC % Sodium Potassium Chloride Carbon Dioxide Anion Gap BUN Creatinine Est GFR (CKD-EPI)AfAm Est GFR (CKD-EPI)NonAf POC Glucometer 147 Random Glucose Hemoglobin A1c % 5.6 Lactic Acid Calcium Phosphorus Magnesium Total Bilirubin AST ALT Alkaline Phosphatase Total Protein Albumin TSH Urine Color Urine Appearance Urine pH Ur Specific [place] Urine Protein Urine Glucose (UA) Urine Ketones Urine Blood Urine Nitrite Urine Bilirubin Urine Urobilinogen Ur Leukocyte Esterase Home Medications Medication Instructions Recorded Atorvastatin Calcium 20 mg PO DAILY tablet 09/13/12 Hudson-3 Fatty Acids [[place]udson-3] 1,000 mg PO DAILY 04/06/14 Insulin Lispro [Humalog] 100 unit SQ ASDIR vial 09/28/16 Levothyroxine Sodium 50 mcg PO DAILY tablet 09/28/16 Fenofibrate,Micronized 135 mg PO DAILY 01/03/19 [Fenofibrate] Gabapentin 300 mg PO HS MDD 1-2 01/03/19 Isosorbide Mononitrate [Isosorbide 30 mg PO DAILY 01/03/19 Mononitrate ER] Metoprolol Tartrate 25 mg PO BID 01/03/19 Zolpidem Tartrate [Ambien] 5 mg PO HS 01/03/19 traZODone HCL [Trazodone HCl] 100 mg PO HS 01/03/19 Lactobacillus Acidophilus [Bacid -] 1 tab PO DAILY #30 tab 01/06/19 Clotrimazole/Betamet Diprop 1 applic TP BID 02/11/19 [Lotrisone Cream (Small Tube)] Fluticasone Propionate [Flonase 9.9 ml NS DAILY 02/11/19 Allergy Relief] Heparin - 5,000 unit SQ BID 02/11/19 Melatonin 10 mg PO HS 02/11/19 Ondansetron [Zofran *Odt*] 4 mg SL Q6H PRN 02/11/19 Polyethylene Glycol 3350 17 gm PO DAILY 02/11/19 oxyCODONE HCL [Roxicodone -] 10 mg PO Q6H MDD 80 02/11/19 Active Medications Generic Name Dose Route Start Last Admin Trade Name Freq PRN Reason Stop Dose Admin Atorvastatin Calcium 20 mg 02/11/19 22:00 Lipitor - PO HS JESÚS Docusate Sodium 100 mg 02/11/19 14:00 Colace - PO TID JESÚS Heparin Sodium (Porcine) 5,000 unit 02/11/19 10:00 Heparin - SQ BID [facility] Sodium Chloride 1,000 mls @ 100 mls/hr 02/11/19 07:54 02/11/19 09:30 Normal Saline - IV 100 mls/hr ASDIR JESÚS Administration Insulin Aspart 1 vial 02/11/19 07:00 02/11/19 07:55 Novolog Vial Sliding Scale - SQ Not Given ACHS [facility] Protocol Levothyroxine Sodium 50 mcg 02/12/19 07:00 Synthroid - PO DAILY@0700 JESÚS Ondansetron HCl 4 mg 02/11/19 05:29 Zofran Injection IVPUSH Q6H PRN NAUSEA Polyethylene Glycol 17 gm 02/11/19 04:37 02/11/19 05:35 Miralax (For Daily Use) - PO 17 gm DAILY JESÚS Administration Senna 2 tab 02/11/19 04:37 02/11/19 05:35 Senna - PO 2 tab HS JESÚS Administration CT A/P prelim results/Images reviewed ASSESSMENT/PLAN: 73 yof with PMHx of HTN, HLD, IDDM, hypothyroidism, CAD, recurrent UTIs, asthma , uterine CA(s/p Hysterectomy), Left rotator cuff tear(repair x3), Right Reverse Total Shoulder Replacement + Open RTC repair + Biceps tenotomy(Reymundo, 01/05/19), comes from [facility] with nausea/vomiting and constipation -Nausea/vomiting/Constipation -Hyperkalemia -Hypotension -Right Humerus fracture/RTC tear s/p Reverse Total Shoulder replacement/Open RTC repair/Biceps tenotomy 01/05/2019 -HLD -IDDM -Hypothyroidism -CAD -Recurrent UTIs -Asthma -Uterine Ca (s/p Hysterectomy) -Left rotator cuff tear (repair x 3) Plan: Enema, x1, repeat if needed Abdominal exam benign. Imaging with no concerning acute process Continue colace/miralax. PT, OOB repeat K levels Resume metoprolol/nitrates as hemodynamics tolerate Advance diet, gentle hydration Resume levothyroxine. ISS Dispo dc back to [facility] in 24 hours pending bowel movement, if tolerating PO well Plan discussed with patient and nursing in detail, all questions answered. Visit type - Emergency Visit Emergency Visit: Yes ED Registration Date: 02/11/19 Care time: The patient presented to the Emergency Department on the above date and was hospitalized for further evaluation of their emergent condition. - New Patient This patient is new to me today: Yes Date on this admission: 02/11/19 - Critical Care Critical Care patient: No - Discharge Referral Referred to [facility] No
--- NOTE | 2019-02-11 12:19 | DS ---
Physical Exam: SUBJECTIVE: Patient seen and examined, no nausea, vomiting or abdominal pain. Eager to go back to the rehab. OBJECTIVE: Vital Signs Period Temp Pulse Resp BP Sys/Jacobs Pulse Ox Last 24 Hr 97.6 F-98.3 F 80-94 16-18 91-139/40-62 97-98 Intake & Output 02/08/19 02/09/19 02/10/19 02/11/19 23:59 23:59 23:59 23:59 Intake Total 400 Balance 400 Weight 230 lb 258 lb PHYSICAL EXAM GENERAL:lying in bed in no acute distress neck: soft, supple HEENT: PERRL, EOMI extremities: Bilateral shoulder limited ROM, Right markedly limited than left Abdomen:Soft, obese, NT throughout, pos bowel sounds Extremities: no edema LABS Laboratory Results - last 24 hr 02/10/19 02/10/19 02/10/19 19:46 19:46 19:46 WBC 6.7 RBC 3.58 L Hgb 10.1 L Hct 30.4 L MCV 85.1 MCH 28.2 MCHC 33.2 RDW 16.6 H Plt Count 262 D MPV 7.2 L Absolute Neuts (auto) 3.5 Neutrophils % 51.5 D Lymphocytes % 37.7 D Monocytes % 8.9 Eosinophils % 1.3 D Basophils % 0.6 Nucleated RBC % 0 Sodium 138 Potassium 4.8 Chloride 107 Carbon Dioxide 26 Anion Gap 5 L BUN 28.0 H Creatinine 1.3 Est GFR (CKD-EPI)AfAm 46.47 Est GFR (CKD-EPI)NonAf 40.10 POC Glucometer Random Glucose 145 H Hemoglobin A1c % Lactic Acid 1.1 Calcium 8.9 Phosphorus Magnesium Total Bilirubin 0.3 AST 13 L ALT 12 L Alkaline Phosphatase 59 Total Protein 6.1 L Albumin 3.1 L TSH Urine Color Urine Appearance Urine pH Ur Specific [place] Urine Protein Urine Glucose (UA) Urine Ketones Urine Blood Urine Nitrite Urine Bilirubin Urine Urobilinogen Ur Leukocyte Esterase 02/11/19 02/11/19 02/11/19 00:32 05:27 05:27 WBC 5.4 RBC 3.76 Hgb 10.7 Hct 32.2 L MCV 85.6 MCH 28.5 MCHC 33.3 RDW 17.1 H Plt Count 240 MPV 7.3 L Absolute Neuts (auto) 3.1 Neutrophils % 57.9 Lymphocytes % 31.7 Monocytes % 8.7 Eosinophils % 1.1 Basophils % 0.6 Nucleated RBC % 0 Sodium 137 Potassium 5.2 H Chloride 107 Carbon Dioxide 26 Anion Gap 4 L BUN 21.3 H Creatinine 1.0 Est GFR (CKD-EPI)AfAm 63.82 Est GFR (CKD-EPI)NonAf 55.07 POC Glucometer Random Glucose 161 H Hemoglobin A1c % Lactic Acid Calcium 9.1 Phosphorus 2.6 Magnesium 1.7 L Total Bilirubin AST ALT Alkaline Phosphatase Total Protein Albumin TSH 1.45 Urine Color Yellow Urine Appearance Turbid Urine pH 7.5 D Ur Specific [place] 1.021 Urine Protein Negative Urine Glucose (UA) Negative Urine Ketones Negative Urine Blood Negative Urine Nitrite Negative Urine Bilirubin Negative Urine Urobilinogen 1.0 Ur Leukocyte Esterase Negative 02/11/19 02/11/19 02/11/19 05:27 07:10 11:51 WBC RBC Hgb Hct MCV MCH MCHC RDW Plt Count MPV Absolute Neuts (auto) Neutrophils % Lymphocytes % Monocytes % Eosinophils % Basophils % Nucleated RBC % Sodium Potassium Chloride Carbon Dioxide Anion Gap BUN Creatinine Est GFR (CKD-EPI)AfAm Est GFR (CKD-EPI)NonAf POC Glucometer 147 121 Random Glucose Hemoglobin A1c % 5.6 Lactic Acid Calcium Phosphorus Magnesium Total Bilirubin AST ALT Alkaline Phosphatase Total Protein Albumin TSH Urine Color Urine Appearance Urine pH Ur Specific [place] Urine Protein Urine Glucose (UA) Urine Ketones Urine Blood Urine Nitrite Urine Bilirubin Urine Urobilinogen Ur Leukocyte Esterase HOSPITAL COURSE: Date of Admission:02/11/19 Date of Discharge: 02/11/19 Minutes to complete discharge: 36 Discharge Summary Problems reviewed: Yes Reason For Visit: PROCTITIS, CONSTIPATION Current Active Problems -Constipation (Acute) -Nausea/vomiting -Hyperkalemia -Hypotension -Right Humerus fracture/RTC tear s/p Reverse Total Shoulder replacement/Open RTC repair/Biceps tenotomy 01/05/2019 -HLD -IDDM -Hypothyroidism -CAD -Recurrent UTIs -Asthma -Uterine Ca (s/p Hysterectomy) -Left rotator cuff tear (repair x 3) Hospital Course: 73 yof with PMHx of HTN, HLD, IDDM, hypothyroidism, CAD, recurrent UTIs, asthma , uterine CA(s/p Hysterectomy), Left rotator cuff tear(repair x3), Right Reverse Total Shoulder Replacement + Open RTC repair + Biceps tenotomy(Reymundo, 01/05/19), comes from [facility] with nausea/vomiting. CT A/P on admission suggested fecal retention. She received enema with multiple bowel movements. Her symptoms have resolved and she is tolerating diet well. She is advised aggressive bowel regimen and enema as needed at the rehab. She has borderline hyperkalemia and her ramipril is being discontinued on discharge. She is also advised to hold metformin for 72 hours given recent contrast administration for CT scan Abdomen/Pelvis. She will be discharged in stable condition back to [facility] for ongoing rehab. Condition: Stable - Instructions Diet, Activity, Other Instructions: You were admitted with nausea, vomiting and found with constipation. You received enema with improvement in your symptoms and will be discharged back to the rehab facility. MEDICATIONS: STOP: Ramipril Metformin (FOR 72 HOURS YOUR RECEIVED DYE FOR YOUR CT SCAN). START: Colace 100 mg TID Senna 2 tablets at bedtime Miralax 17 gm one to 2 times daily can use enema if no bowel movement in 2-3 days Taper your laxatives as your start moving around more or if you have more than 1 -2 bowel movements daily. continue other medications as before follow up: Blood work Basic metabolic Panel (BMP) in 2-3 days at the rehab Please keep all your follow ups including your regular doctor and orthopedic as advised on your recent discharge from [facility] If you have any new or worsening pain or concerns, please call 911 or come to the ED. Referrals: Milind Rodriguez MD [Primary Care Provider] - Disposition: [facility] - Home Medications Comprehensive Discharge Medication List: Ambulatory Orders Atorvastatin Calcium 20 mg PO DAILY tablet 09/13/12 [place]-3 Fatty Acids [[place]-3] 1,000 mg PO DAILY 04/06/14 Levothyroxine Sodium 50 mcg PO DAILY tablet 09/28/16 Fenofibrate,Micronized [Fenofibrate] 135 mg PO DAILY 01/03/19 Gabapentin 300 mg PO HS MDD 1-2 01/03/19 Isosorbide Mononitrate [Isosorbide Mononitrate ER] 30 mg PO DAILY 01/03/19 Metoprolol Tartrate 25 mg PO BID 01/03/19 Zolpidem Tartrate [Ambien] 5 mg PO HS 01/03/19 traZODone HCL [Trazodone HCl] 100 mg PO HS 01/03/19 Lactobacillus Acidophilus [Bacid -] 1 tab PO DAILY #30 tab 01/06/19 Clotrimazole/Betamet Diprop [Lotrisone -] 1 applic TP BID 02/11/19 Container,Empty [Enema Bottle] 1 each MC Q2D PRN 7 Days #5 bottle 02/11/19 Docusate Sodium [Colace -] 100 mg PO TID capsule 02/11/19 Fluticasone Propionate [Flonase Allergy Relief] 9.9 ml NS DAILY 02/11/19 Heparin - 5,000 unit SQ BID 02/11/19 Insulin Lispro [Humalog] 100 unit SQ ASDIR #0 vial 02/11/19 Melatonin 10 mg PO HS 02/11/19 Ondansetron [Zofran *Odt*] 4 mg SL Q6H PRN 02/11/19 Polyethylene Glycol 3350 [Miralax 119 gm Btl -] 17 gm PO BID bottle 02/11/19 Sennosides [Senna -] 2 tab PO HS tablet 02/11/19 oxyCODONE HCL [Roxicodone -] 10 mg PO Q6H MDD 80 02/11/19 This patient is new to me today: Yes Date on this admission: 02/11/19 Emergency Visit: Yes ED Registration Date: 02/11/19 Care time: The patient presented to the Emergency Department on the above date and was hospitalized for further evaluation of their emergent condition. Critical Care patient: No - Discharge Referral Referred to [facility] No
[2019-02-11] MEDS ORDERED: DOCUSATE SODIUM 100 MG CAPSULE (FP) PO SCH (14:00)
[2019-02-11 14:29] VITALS: PULSE 84; TEMP 98.7
[2019-02-11] MEDS ORDERED: ATORVASTATIN CA 20 MG TABLET (FP) PO SCH (22:00)
[2019-02-11] MEDS ORDERED: POLYETHYLENE GLYCOL 3350 119 GM BTL PO SCH (22:00)
[2019-02-12] MEDS ORDERED: LEVOTHYROXINE NA 50 MCG TABLET (FP) PO SCH (07:00)
--- NOTE | 2019-02-12 20:11 | EKG ---
Test Reason : Blood Pressure : / mmHG Vent. Rate : 095 BPM Atrial Rate : 095 BPM P-R Int : 162 ms QRS Dur : 078 ms QT Int : 336 ms P-R-T Axes : 053 009 030 degrees QTc Int : 422 ms SINUS RHYTHM WITH PREMATURE ATRIAL COMPLEXES LOW VOLTAGE QRS BORDERLINE ECG WHEN COMPARED WITH ECG OF 03-JAN-2019 02:36, PREMATURE ATRIAL COMPLEXES ARE NOW PRESENT Confirmed by CALLUM MARSH MD ([id number]) on 02/12/2019 8:11:26 PM Referred By: Confirmed By:CALLUM MARSH MD
== END 2019-02-11 15:40 ==
LOC: JER 18:19 → INTOOBSV 02-11 02:48 → JERBED 02-11 02:48 → UNDOADMOB 02-11 02:48 → JERBED 02-11 04:31 → J4S 02-11 06:06
PROVIDERS: ADMIT Internal Medicine; ATTEND Hospitalist
PROC: 3E0337Z Introduction of Electrolytic and Water Balance Substance into Peripheral Vein, Percutaneous Approach (ICD-10-PCS; principal; 2019-02-11)
DX: K59.09 Other constipation (principal); R11.2 Nausea with vomiting, unspecified; I95.9 Hypotension, unspecified; E87.5 Hyperkalemia; I25.10 Atherosclerotic heart disease of native coronary artery without angina pectoris; I10 Essential (primary) hypertension; E78.5 Hyperlipidemia, unspecified; E11.9 Type 2 diabetes mellitus without complications; E03.9 Hypothyroidism, unspecified; J45.909 Unspecified asthma, uncomplicated; R16.0 Hepatomegaly, not elsewhere classified; R16.1 Splenomegaly, not elsewhere classified; K44.9 Diaphragmatic hernia without obstruction or gangrene; M25.511 Pain in right shoulder; Z79.891 Long term (current) use of opiate analgesic; S43.421S Sprain of right rotator cuff capsule, sequela; X58.XXXS Exposure to other specified factors, sequela; Z85.42 Personal history of malignant neoplasm of other parts of uterus; Z79.4 Long term (current) use of insulin; Z90.710 Acquired absence of both cervix and uterus; Z87.440 Personal history of urinary (tract) infections; Z91.048 Other nonmedicinal substance allergy status
CPT/HCPCS: 36415; 74177-TC; 80048; 80053; 81003; 82962; 83036; 83605; 83735; 84100; 84443; 85025; 87045; 87046; 87086; 87186; 93005; 93010; 99285-25; G0378; J7030

== ENCOUNTER 2019-11-08 10:26 | Inpatient (IN) | payer OTHER, BC ==
--- NOTE | 2019-11-08 13:52 | PDOC ---
History of Present Illness - General Chief Complaint: Injury Stated Complaint: WEAKNESS Time Seen by Provider: 11/08/19 12:04 - History of Present Illness Initial Comments: 74 YOF h/o diabetes and venous insufficiency presents after unwitnessed fall last night. Patient reports she has had some weakness in her legs which has caused her to experience some difficulty ambulating. Last night around 12 AM she was walking in her living room, tripped and fell backwards, falling on her lower back. Because she was alone she remained on her back until 6AM this morning until a neighbor hear her cry out. Her doorman found her on the floor of her apartment and called EMS which brought her to the ED for evaluation. She denies LOC, hitting her head, dizziness presently or at the time of the event, or tongue bitting. She does mention that she is and has been incontinent for many years now. She also endorses some stiffness and lower back pain. She denies fever, chills, nausea, vomiting, diarrhea, chest pain or shortness of breath. Constitutional: No Weight Change, No Fever, No Chills, No Night Sweats, No Fatigue, No Malaise ENT/Mouth: No Hearing Changes, No Ear Pain, No Nasal Congestion, No Sinus Pain, No Hoarseness, No sore throat, No Rhinorrhea, No Swallowing Difficulty Eyes: No Eye Pain, No Swelling, No Redness, No Foreign Body, No Discharge, No Vision Changes Cardiovascular: No Chest Pain, No SOB, No PND, No Dyspnea on Exertion, No Orthopnea, No Claudication, No Edema, No Palpitations Respiratory: No Cough, No Sputum, No Wheezing, No Smoke Exposure, No Dyspnea Gastrointestinal: No Nausea, No Vomiting, No Diarrhea, No Constipation, No Pain, No Heartburn, No Anorexia, No Dysphagia, No Hematochezia, No Melena, No Flatulence, No Jaundice Genitourinary: No Dysmenorrhea, No DUB, No Dyspareunia, No Dysuria, No Urinary Frequency, No Hematuria, No Urinary Incontinence, No Urgency, No Flank Pain, No Urinary Flow Changes, No Hesitancy Musculoskeletal: No Arthralgias, No Myalgias, No Joint Swelling, No Joint St iffness, Yes Back Pain, No Neck Pain, No Injury History Skin: No Skin Lesions, No Pruritis, No Hair Changes, No Breast/Skin Changes, No Nipple Discharge Neuro: No Weakness, No Numbness, No Paresthesias, No Loss of Consciousness, No Syncope, No Dizziness, No Headache, No Coordination Changes, No Recent Falls Psych: No Anxiety/Panic, No Depression, No Insomnia, No Personality Changes, No Delusions, No Rumination, No SI/HI/AH/VH, No Social Issues, No Memory Changes, No Violence/Abuse Hx., No Eating Concerns Heme/Lymph: No Bruising, No Bleeding, No Transfusions History, No Lymphadenopathy Endocrine: No Polyuria, No Polydipsia, No Temperature Intolerance 11/08/19 15:20 Past History - Medical History Allergies/Adverse Reactions: Allergies Allergy/AdvReac Type Severity Reaction Status Date / Time No Known Drug Allergies Allergy Verified 06/11/19 01:31 CATS Allergy Intermediate Difficulty Uncoded 06/11/19 01:31 Breathing DOGS Allergy Intermediate Difficulty Uncoded 06/11/19 01:31 Breathing NKDA Allergy Uncoded 06/11/19 01:31 Home Medications: Ambulatory Orders Atorvastatin Calcium 20 mg PO HS tablet 09/13/12 Scott-3 Fatty Acids [Scott-3] 1,000 mg PO DAILY 04/06/14 Levothyroxine Sodium 50 mcg PO DAILY tablet 09/28/16 Fenofibrate,Micronized [Fenofibrate] 135 mg PO DAILY 01/03/19 Isosorbide Mononitrate [Isosorbide Mononitrate ER] 30 mg PO DAILY 01/03/19 Metoprolol Tartrate 25 mg PO BID 01/03/19 oxyCODONE HCL [Roxicodone -] 10 mg PO Q6H MDD 80 02/11/19 Cholecalciferol (Vitamin D3) [Vitamin D3] 2,000 unit PO DAILY 06/11/19 Metformin HCl [Glucophage] 1,000 mg PO BID 06/11/19 Pioglitazone HCl [Actos] 15 mg PO DAILY 06/11/19 Cyanocobalamin [Vitamin B12 -] 1,000 mcg PO DAILY 30 Days #30 tablet 06/13/19 Ferrous Sulfate 325 mg PO DAILY 30 Days #30 tablet 06/13/19 Dulaglutide [Trulicity] 1.5 mg SQ WEEKLY 11/08/19 Gabapentin 300 mg PO DAILY 11/08/19 Nitrofurantoin Macrocrystal [Macrodantin -] 50 mg PO DAILY 11/08/19 Anemia: No Asthma: Yes (ALLERGY INDUCED-CONTROLLED) Cancer: Yes (UTERINE 2001) Cardiac Disorders: Yes CVA: No COPD: No CHF: No Dementia: No Diabetes: Yes (2005) GI Disorders: No Disorders: Yes (INCONTINENCE/recurrent uti) HTN: Yes Hypercholesterolemia: Yes Liver Disease: No Seizures: No Thyroid Disease: Yes (HYPOTHYROIDISM) - Surgical History Abdominal Surgery: Yes Appendectomy: Yes (1965) Cardiac Surgery: No Cholecystectomy: Yes (1965) Lung Surgery: No Neurologic Surgery: No Orthopedic Surgery: Yes (lt rotator cuff repair/ rt. shoulder replacement) - Reproductive History Is Patient Now?: No - Psycho-Social/Smoking History Smoking History: Former smoker Have you smoked in the past 12 months: No Number of Cigarettes Smoked Daily: 20 If you are a former smoker, when did you quit?: 2 WEEKS AGO Information on smoking cessation initiated: No - Substance Abuse Hx (Audit-C & DAST Scrn) How often the patient has a drink containing alcohol: Never Score: In Men: 4 or > Positive; In Women: 3 or > Positive: 0 Screen Result (Pos requires Nsg. Audit-10AR): Negative In the last yr the pt used illegal drug/Rx for NonMed reason: No Score: Yes response is considered Positive: 0 Screen Result (Positive result requires Nsg. DAST-10): Negative *Physical Exam - Vital Signs Last Vital Signs Temp Pulse Resp BP Pulse Ox 100.2 F H 117 H 22 H 124/62 94 L 11/08/19 10:47 11/08/19 10:47 11/08/19 10:47 11/08/19 10:47 11/08/19 10:52 - Physical Exam General Appearance: Yes: Nourished, Apparent Distress, Obese HEENT: positive: EOMI, DINO, Normal ENT Inspection, Normal Voice Neck: positive: Trachea midline, Normal Thyroid Respiratory/Chest: positive: Lungs Clear, Normal Breath Sounds Cardiovascular: positive: Regular Rhythm, Regular Rate, S1, S2 Gastrointestinal/Abdominal: positive: Normal Bowel Sounds, Flat, Soft Rectal Exam: positive: normal exam, normal rectal tone Musculoskeletal: positive: Other (tenderness to palpation of lumbosacral region along midline) Extremity: positive: Swelling, Erythema (lower legs bilaterally are erythematous, moddled, and swollen) Neurologic: positive: production welder II-XII NML intact, Fully Oriented, Alert, Normal Mood/Affect, Normal Response, Other (strength 3/5 in lower extremities) ED Treatment Course - LABORATORY CBC & Chemistry Diagram: 11/08/19 14:35 11/08/19 14:35 Medical Decision Making - Medical Decision Making 74 YOF h/o diabetes and venous insufficiency presents after unwitnessed fall last night. Patient reports she has had some weakness in her legs which has caused her to experience some difficulty ambulating. Last night around 12 AM she was walking in her living room, tripped and fell backwards, falling on her lower back. Because she was alone she remained on her back until 6AM this morning until a neighbor hear her cry out. Her doorman found her on the floor of her apartment and called EMS which brought her to the ED for evaluation. She denies LOC, hitting her head, dizziness presently or at the time of the event, or tongue bitting. She does mention that she is and has been incontinent for many years now. She also endorses some stiffness and lower back pain. She denies fever, chills, nausea, vomiting, diarrhea, chest pain or shortness of breath. Patient had temp of 100.2 on arrival and HR to 117, vitals otherwise wnl. Physical exam revealed 3/5 strength in lower extremities bilaterally. Rectal tone was normal, no gross blood on rectal exam. Lower legs are erythematous, swollen and mottled consistent with impaired venous return. ddx includes but is not limited to CVA, mechanical fall, syncope, seizure. plan: CT head, CT lumbar spine, labs, troponin, blood cultures, lactate. reassess. Discharge - Follow up/Referral Referrals: Milind Rodriguez MD [Primary Care Provider] - - Patient Discharge Instructions - Post Discharge Activity
[2019-11-08 15:13] LABS: VENOUS BASE EXCESS -1.5 mmol/L (-2-2); VENOUS O2 SATURATION 88.9 % (70-80); VENOUS PH 7.451 (7.310-7.410)
[2019-11-08 15:26] LABS: BASO % 0.4 % (0-2.0); EOS % 0.1 % (0-4.5); HEMATOCRIT 31.8 % (32.4-45.2); HEMOGLOBIN 10.2 GM/dL (10.7-15.3); LYMPH % 21.9 % (8-40); MCH 23.5 pg (25.7-33.7); MCHC 32.2 g/dl (32.0-36.0); MEAN CELL VOLUME 73.1 fl (80-96); MEAN PLT VOLUME 7.7 fl (7.5-11.1); NEUT % 69.6 % (42.8-82.8); PLATELET COUNT 302 K/MM3 (134-434); RBC 4.35 M/mm3 (3.60-5.2); WHITE BLOOD COUNT 8.3 K/mm3 (4.0-10.0)
[2019-11-08 15:27] LABS: EPI CELLS 2 /uL (0-25.1); HYALINE CASTS 1 /uL (0-3.1); URINE APPEARANCE CLOUDY; URINE BILIRUBIN NEGATIVE (NEGATIVE); URINE COLOR YELLOW; URINE GLUCOSE (UA) 3+ (NEGATIVE); URINE KETONE NEGATIVE (NEGATIVE); URINE LEUK ESTERASE 1+ (NEGATIVE); URINE NITRITE POSITIVE (NEGATIVE); URINE PROTEIN 1+ (NEGATIVE); URINE RBC 22 /uL (0-23.9); URINE WBC 279 /uL (0-25.8)
[2019-11-08] MEDS ORDERED: SODIUM CHLORIDE 500 ML IV STA (15:35)
[2019-11-08 15:40] LABS: INR 1.12 (0.83-1.09); PROTHROMBIN TIME (PATIENT) 13.2 SEC (9.7-13.0)
[2019-11-08 15:43] LABS: ACTIVATED PTT 28.3 SECONDS (25.2-36.5)
[2019-11-08] MEDS ORDERED: CEFTRIAXONE 1,000 MG in DEXTROSE 5%-WATER - 50 ML IVPB ONE (15:45)
[2019-11-08] MEDS ORDERED: CEFTRIAXONE 1 GM/50 ML BAG ONE (15:47)
[2019-11-08 15:48] LABS: ALBUMIN 3.2 g/dl (3.4-5.0); BILIRUBIN,TOTAL 0.5 mg/dL (0.2-1); BLOOD UREA NITROGEN 28.9 mg/dL (7-18); CALCIUM 9.4 mg/dL (8.5-10.1); CREATININE 1.2 mg/dL (0.55-1.3); POTASSIUM 4.8 mmol/L (3.5-5.1); TOT PROT 7.4 g/dl (6.4-8.2)
--- NOTE | 2019-11-08 16:07 | PDOC ---
Documentation entered by Yuki Car SCRIBE, acting as scribe for Colin Pruett MD. Colin Pruett MD: This documentation has been prepared by the Josep crouch Brenda, SCRIBE, under my direction and personally reviewed by me in its entirety. I confirm that the documentation accurately reflects all work, treatment, procedures, and medical decision making performed by me. Attending Attestation - Resident Resident Name: Chiki Donnelly - ED Attending Attestation I have performed the following: I have examined & evaluated the patient, The case was reviewed & discussed with the resident, I agree w/resident's findings & plan, Exceptions are as noted - HPI HPI: 11/08/19 15:10 The patient is a 74 year old female with a significant PMH of HTN, HLD, hypothyroidism, diabetes and venous insufficiency who presents to the emergency department with s/p unwitnessed fall occurring last night. She reports that around 12:00am, while walking in her living room, she fell backwards on her lower back, since she was alone, she layed on her back until 6:00am when a neighbor heard her yell. Her doorman then came in and called EMS. Patient notes that she has recently had some weakness in her legs causing her some difficulty walking, which she notes to be the reason she fell. Endorses lower back pain. The patient denies LOC or head trauma. Denies chest pain, shortness of breath, headache and dizziness. Denies fever, chills, nausea, vomiting, diarrhea and constipation. Denies dysuria, frequency, urgency and hematuria. Allergies: NKDA Social history: No reported hx of tobacco use, alcohol use or illicit drug use. PCP: [facility] - Physicial Exam PE: 11/08/19 16:04 EXAMINATION CONSTITUTIONAL: Awake and alert, morbidly obese, in no significant distress HEAD: Normocephalic; atraumatic EYES: PERRL; EOM intact; Conjunctiva pink ENMT: External appears normal; normal oropharynx NECK: Supple; non-tender; no jvd CARD: Normal S1, S2; no murmurs, rubs, or gallops RESP: Normal chest excursion with respiration; breath sounds clear and equal bilaterally; no wheezes, rhonchi, or rales ABD: Soft, non-distended; non-tender; no palpable organomegaly, no palpable he rnias PELVIS: stable BACK: No obvious deformity,; midline tenderness L3/L4/L5 EXT: Normal PassiveROM in all four extremities; non-tender to palpation; distal pulses intact SKIN: Warm, dry, no rash NEURO: Cranial nerves II through XII are grossly intact; motor is five 5 x 2 to upper extremities bilaterally; 4-5 to lower extremities bilaterally; patient ambulates with assistance - Medical Decision Making 11/08/19 16:06 Patient is 74-year-old female with multiple comorbidities, history of morbid obesity who presents a fall precipitated by generalized weakness. In the ER, patient is awake and alert, nontoxic-appearing, mildly tachycardic and febrile. Differential diagnosis includes pneumonia versus UTI versus COVID versus anemia versus dehydration. Will judiciously hydrate. Will obtain blood and urine cultures. Will obtain chest x-ray and UA/UC. Will treat with appropriate antibiotic therapy. Likely admission. Discharge - Discharge Information Problems reviewed: Yes Clinical Impression/Diagnosis: Urinary tract infection Qualifiers: Urinary tract infection type: acute cystitis Hematuria presence: without hematuria Qualified Code(s): N30.00 - Acute cystitis without hematuria - Follow up/Referral Referrals: Milind Rodriguez MD [Primary Care Provider] - - Patient Discharge Instructions - Post Discharge Activity
[2019-11-08] MEDS ORDERED: ACETAMINOPHEN 1000 MG/100 ML VIAL (NON FORMULARY) IVPB ONE (16:09)
[2019-11-08] MEDS ORDERED: ACETAMINOPHEN INJECTION 100 ML IVPB ONE (16:30)
[2019-11-08] MEDS ORDERED: LIDOCAINE 5% TOPICAL PATCH TP ONE (16:39)
[2019-11-08] MEDS ORDERED: KETOROLAC TROMETHAMINE 15 MG/ML VIAL IVPUSH ONE (16:41)
[2019-11-08] MEDS ORDERED: METHOCARBAMOL 500 MG TABLET PO ONE (16:41)
[2019-11-08] MEDS ORDERED: METHOCARBAMOL 500 MG TABLET ONE (17:00)
[2019-11-08] MEDS ORDERED: LIDOCAINE 5% TOPICAL PATCH ONE (17:00)
[2019-11-08] MEDS ORDERED: KETOROLAC TROMETHAMINE 15 MG/ML VIAL ONE (17:00)
[2019-11-08] MEDS ORDERED: metFORMIN HCL 500 MG TABLET (FP) PO SCH (18:16)
--- NOTE | 2019-11-08 18:22 | PN ---
Teaching Attending Note Name of Resident: Ruchi Ruiz ATTENDING PHYSICIAN STATEMENT I saw and evaluated the patient. I reviewed the resident's note and discussed the case with the resident. I agree with the resident's findings and plan as documented. SUBJECTIVE: Patient is a 74yof with pmhx HTN, HLD, CAD , hypothyroid, T2DM, venous ins ufficiency, uterine CA (s/p hysterectomy) & recurrent UTIs,presented to the ED s/p fall. While she was walking to the kitchen with a plate in one hand and using her walker when she said she slipped and fell. She stayed on the floor for 6-9 hours. OBJECTIVE: Vital Signs Temperature 100.5 F H 11/08/19 13:51 Pulse Rate 112 H 11/08/19 16:05 Respiratory Rate 22 H 11/08/19 16:05 Blood Pressure 128/62 11/08/19 16:05 O2 Sat by Pulse Oximetry (%) 97 11/08/19 16:05 PE:per resident's note Extremities: pedal pulses palpable b/l; marvin bandage intact along the legs R. foot: healed plantar heel ulceration; no edema, no erythema, no signs of infection is noted L. heel has a roughly 1 cm x 1 cm x 0.2 cm ulceration with a nice healthy granular tissue noted overlying CBCD WBC 8.3 K/mm3 (4.0-10.0) 11/08/19 14:35 RBC 4.35 M/mm3 (3.60-5.2) 11/08/19 14:35 Hgb 10.2 GM/dL (10.7-15.3) L 11/08/19 14:35 Hct 31.8 % (32.4-45.2) L 11/08/19 14:35 MCV 73.1 fl (80-96) L 11/08/19 14:35 MCHC 32.2 g/dl (32.0-36.0) 11/08/19 14:35 RDW 19.0 % (11.6-15.6) H 11/08/19 14:35 Plt Count 302 K/MM3 (134-434) D 11/08/19 14:35 MPV 7.7 fl (7.5-11.1) 11/08/19 14:35 CMP Sodium 137 mmol/L (136-145) 11/08/19 14:35 Potassium 4.8 mmol/L (3.5-5.1) 11/08/19 14:35 Chloride 104 mmol/L (98-107) 11/08/19 14:35 Carbon Dioxide 23 mmol/L (21-32) 11/08/19 14:35 Anion Gap 11 MMOL/L (8-16) 11/08/19 14:35 BUN 28.9 mg/dL (7-18) H 11/08/19 14:35 Creatinine 1.2 mg/dL (0.55-1.3) 11/08/19 14:35 Random Glucose 285 mg/dL (74-106) H 11/08/19 14:35 Calcium 9.4 mg/dL (8.5-10.1) 11/08/19 14:35 Total Bilirubin 0.5 mg/dL (0.2-1) 11/08/19 14:35 AST 76 U/L (15-37) H 11/08/19 14:35 ALT 20 U/L (13-61) 11/08/19 14:35 Alkaline Phosphatase 70 U/L (45-117) 11/08/19 14:35 Total Protein 7.4 g/dl (6.4-8.2) 11/08/19 14:35 Albumin 3.2 g/dl (3.4-5.0) L 11/08/19 14:35 CARDIAC ENZYMES Creatine Kinase 3769 U/L (26-192) H 11/08/19 14:35 Troponin I 0.07 ng/ml (0.00-0.05) H 11/08/19 14:35 Current Medications Generic Name Dose Route Start Last Admin Trade Name Freq PRN Reason Stop Dose Admin Miscellaneous 1 each 11/08/19 22:00 Lidoderm Patch Removal MC DAILY@2200 JESÚS CXR: no acute pathology , sclerotic knot, right shoulder replacement CT of Lspine: no fx Ct of the head: neg ASSESSMENT AND PLAN: Patient is a 74yof with pmhx HTN, HLD, CAD , hypothyroid, T2DM, venous insufficiency, uterine CA (s/p hysterectomy) & recurrent UTIs,presented to the ED s/p fall. #S/p fall #Acute Rhabdo. with CPk level of 4K, will trend, will hold Statins for now, since can axacerbate rhabdo. #Sepsis: due to UTI, IVF continue #UTI ON IV Rocephin 1gm IV daily, UA, urine cx #CPK elevated s/p fall , fall precaution, PT, follow CPk level, IVF x 1 liter #Microcytic anemia: Iron studies, B12, FA #Chronic venous stasis : marvin wrap DVt Px: lovenox
[2019-11-08] MEDS ORDERED: SODIUM CHLORIDE 1,000 ML IV SCH (18:30)
--- NOTE | 2019-11-08 18:53 | HP ---
CHIEF COMPLAINT: fell and has back pain PCP: Dr. Rodriguez HISTORY OF PRESENT ILLNESS: Patient is 74 yo female pmhx HTN, HLD, CAD (w/blockages), hypothyroid, DM2, venous insufficiency, uterine CA (s/p hysterectomy) & recurrent UTI (last one 1 week ago). Presented to the ED s/p fall. She was walking to the kitchen with a plate in one hand and using her walker when she said she slipped and fell. She was unable to get up because of her knees. She was laying on the floor for at least 6 hours before someone heard her and called EMS. Patient denies hitting her head when she fell or LOC, she said she fell on her backside. She denied any dizziness or weakness. Says her back hurts from laying on the ground for so long. ER course was notable for: (1) febrile, tachy, + UA >> sepsis (2) + UA, elevated CK & CKMB (3) CT Head, Spine & CXR WNL Recent Travel: denies PAST MEDICAL HISTORY: PAST SURGICAL HISTORY: Left rotator cuff tear Right Reverse Total Shoulder Replacement Multiple eye surgeries, Hysterectomy, Cholecystectomy Family History: Strong hx colon CA - mother and sister both from it Father had diabetes Social History: Smoking: denies Alcohol: denies Drugs: denies Allergies No Known Drug Allergies Allergy (Verified 06/11/19 01:31) CATS Allergy (Intermediate, Uncoded 06/11/19 01:31) Difficulty Breathing DOGS Allergy (Intermediate, Uncoded 06/11/19 01:31) Difficulty Breathing NKDA Allergy (Uncoded 06/11/19 01:31) HOME MEDICATIONS: Home Medications Home Medications Medication Instructions Recorded Atorvastatin Calcium 1 tab PO HS tablet 09/13/12 Girard-3 Fatty Acids [Girard-3] 1,000 mg PO DAILY 04/06/14 Levothyroxine Sodium 50 mcg PO DAILY tablet 09/28/16 Fenofibrate,Micronized 135 mg PO DAILY 01/03/19 [Fenofibrate] Isosorbide Mononitrate [Isosorbide 30 mg PO DAILY 01/03/19 Mononitrate ER] Metoprolol Tartrate 25 mg PO BID 01/03/19 Cholecalciferol (Vitamin D3) 2,000 unit PO DAILY 06/11/19 [Vitamin D3] Metformin HCl [Glucophage] 1,000 mg PO BID 06/11/19 Pioglitazone HCl [Actos] 15 mg PO DAILY 06/11/19 Cyanocobalamin [Vitamin B12 -] 1,000 mcg PO DAILY 30 Days #30 06/13/19 tablet Ferrous Sulfate 325 mg PO DAILY 30 Days #30 tablet 06/13/19 Gabapentin 300 mg PO HS 11/08/19 Nitrofurantoin Macrocrystal 50 mg PO DAILY 11/08/19 [Macrodantin -] REVIEW OF SYSTEMS CONSTITUTIONAL: Absent: fever, chills, diaphoresis, generalized weakness, malaise, loss of appetite, weight change HEENT: Absent: rhinorrhea, nasal congestion, throat pain, throat swelling, difficulty swallowing, mouth swelling, ear pain, eye pain, visual changes CARDIOVASCULAR: Absent: chest pain, syncope, palpitations, irregular heart rate, lightheadedness, peripheral edema RESPIRATORY: Absent: cough, shortness of breath, dyspnea with exertion, orthopnea, wheezing, stridor, hemoptysis GASTROINTESTINAL: Absent: abdominal pain, abdominal distension, nausea, vomiting, diarrhea, constipation, melena, hematochezia GENITOURINARY: + increased frequency and urgency Absent: dysuria, hesitancy, hematuria, flank pain, genital pain MUSCULOSKELETAL: + lower back pain Absent: myalgia, arthralgia, joint swelling, neck pain SKIN: + chronic leg edema and venous stasis dermatitis Absent: rash, itching, pallor HEMATOLOGIC/IMMUNOLOGIC: Absent: easy bleeding, easy bruising, lymphadenopathy, frequent infections ENDOCRINE: Absent: unexplained weight gain, unexplained weight loss, heat intolerance, cold intolerance NEUROLOGIC: Absent: headache, focal weakness or paresthesias, dizziness, unsteady gait, seizure, mental status changes, bladder or bowel incontinence PSYCHIATRIC: Absent: anxiety, depression, suicidal or homicidal ideation, hallucinations. PHYSICAL EXAMINATION Vital Signs - 24 hr 11/08/19 11/08/19 11/08/19 10:47 10:52 13:51 Temperature 100.2 F H 100.5 F H Pulse Rate 117 H Pulse Rate [ 107 H Right Radial] Respiratory 22 H 22 H Rate Blood Pressure 124/62 Blood Pressure 122/54 L [Right Arm] O2 Sat by Pulse 94 L 94 L 97 Oximetry (%) 11/08/19 11/08/19 16:05 18:31 Temperature 99.7 F H Pulse Rate Pulse Rate [ 112 H 109 H Right Radial] Respiratory 22 H 20 Rate Blood Pressure Blood Pressure 128/62 90/54 L [Right Arm] O2 Sat by Pulse 97 94 L Oximetry (%) GENERAL: Awake, alert, and fully oriented, in no acute distress. HEAD: Normal with no signs of trauma. EYES: Pupils equal, round and reactive to light, extraocular movements intact, sclera anicteric, conjunctiva clear. ENT: Moist mucous membranes. NECK: Normal range of motion, supple LUNGS: Breath sounds equal, clear to auscultation bilaterally. HEART: Regular rate and rhythm, normal S1 and S2 without murmur ABDOMEN: Soft, nontender, not distended, normoactive bowel sounds MUSCULOSKELETAL: Normal range of motion at all joints. No bony deformities or tenderness. No CVA tenderness. Back non tender to palpation along spine and paravertebral muslces. UPPER EXTREMITIES: warm, well-perfused. 5/5 strength BL LOWER EXTREMITIES: warm, well-perfused. 5/5 strength BL except 4/5 hip flexion BL. Chronic BL venous stasis dermatitis with bandages on BL feet/ankles. Non pitting edema BL NEUROLOGICAL: Cranial nerves II-XII intact. Normal speech. PSYCHIATRIC: Cooperative. Good eye contact. Appropriate mood and affect. SKIN: Warm, dry, BL venous stasis dermatitis BL Laboratory Results - last 24 hr 11/08/19 11/08/19 11/08/19 14:35 14:35 14:35 WBC 8.3 RBC 4.35 Hgb 10.2 L Hct 31.8 L MCV 73.1 L MCH 23.5 L D MCHC 32.2 RDW 19.0 H Plt Count 302 D MPV 7.7 Absolute Neuts (auto) 5.8 Neutrophils % 69.6 Lymphocytes % 21.9 Monocytes % 8.0 Eosinophils % 0.1 D Basophils % 0.4 Nucleated RBC % 0 PT with INR 13.20 H INR 1.12 H PTT (Actin FS) 28.3 VBG pH POC VBG pCO2 POC VBG pO2 VBG HCO3 VBG O2 Sat (Anthony) VBG Base Excess Sodium Potassium Chloride Carbon Dioxide Anion Gap BUN Creatinine Est GFR (CKD-EPI)AfAm Est GFR (CKD-EPI)NonAf Random Glucose Lactic Acid Calcium Total Bilirubin AST ALT Alkaline Phosphatase Creatine Kinase Creatine Kinase Index CK-MB (CK-2) Troponin I 0.07 H Total Protein Albumin Urine Color Urine Appearance Urine pH Ur Specific [place] Urine Protein Urine Glucose (UA) Urine Ketones Urine Blood Urine Nitrite Urine Bilirubin Urine Urobilinogen Ur Leukocyte Esterase Urine WBC (Auto) Urine RBC (Auto) Urine Casts (Auto) U Epithel Cells (Auto) Urine Bacteria (Auto) 11/08/19 11/08/19 11/08/19 14:35 14:35 14:35 WBC RBC Hgb Hct MCV MCH MCHC RDW Plt Count MPV Absolute Neuts (auto) Neutrophils % Lymphocytes % Monocytes % Eosinophils % Basophils % Nucleated RBC % PT with INR INR PTT (Actin FS) VBG pH 7.451 H POC VBG pCO2 32.0 L POC VBG pO2 52.1 H VBG HCO3 21.8 L VBG O2 Sat (Anthony) 88.9 H VBG Base Excess -1.5 Sodium 137 Potassium 4.8 Chloride 104 Carbon Dioxide 23 Anion Gap 11 BUN 28.9 H Creatinine 1.2 Est GFR (CKD-EPI)AfAm 50.84 Est GFR (CKD-EPI)NonAf 43.86 Random Glucose 285 H Lactic Acid 1.7 Calcium 9.4 Total Bilirubin 0.5 AST 76 H ALT 20 Alkaline Phosphatase 70 Creatine Kinase 3769 H Creatine Kinase Index 0.4 CK-MB (CK-2) 18.4 H Troponin I Total Protein 7.4 Albumin 3.2 L Urine Color Urine Appearance Urine pH Ur Specific [place] Urine Protein Urine Glucose (UA) Urine Ketones Urine Blood Urine Nitrite Urine Bilirubin Urine Urobilinogen Ur Leukocyte Esterase Urine WBC (Auto) Urine RBC (Auto) Urine Casts (Auto) U Epithel Cells (Auto) Urine Bacteria (Auto) 11/08/19 14:55 WBC RBC Hgb Hct MCV MCH MCHC RDW Plt Count MPV Absolute Neuts (auto) Neutrophils % Lymphocytes % Monocytes % Eosinophils % Basophils % Nucleated RBC % PT with INR INR PTT (Actin FS) VBG pH POC VBG pCO2 POC VBG pO2 VBG HCO3 VBG O2 Sat (Anthony) VBG Base Excess Sodium Potassium Chloride Carbon Dioxide Anion Gap BUN Creatinine Est GFR (CKD-EPI)AfAm Est GFR (CKD-EPI)NonAf Random Glucose Lactic Acid Calcium Total Bilirubin AST ALT Alkaline Phosphatase Creatine Kinase Creatine Kinase Index CK-MB (CK-2) Troponin I Total Protein Albumin Urine Color Yellow Urine Appearance Cloudy Urine pH 5.0 D Ur Specific [place] 1.018 Urine Protein 1+ H Urine Glucose (UA) 3+ H Urine Ketones Negative Urine Blood 3+ H Urine Nitrite Positive H Urine Bilirubin Negative Urine Urobilinogen 1.0 Ur Leukocyte Esterase 1+ H Urine WBC (Auto) 279 Urine RBC (Auto) 22 Urine Casts (Auto) 1 U Epithel Cells (Auto) 2 Urine Bacteria (Auto) >10,000 ASSESSMENT/PLAN: Patient is 74 yo female pmhx HTN, HLD, CAD (w/blockages?), hypothyroidism, DM2, venous insufficiency, uterine CA (s/p hysterectomy) & recurrent UTI (last one 1 week ago). Presented to the ED s/p fall where she was on the ground for over 6 hours. Found to have tachycardia, fever (100.5), and + UA. Admitted to hospital for sepsis. Sepsis: 2/2 UTI - UA +/ cultures pending - blood cultures pending - chronic UTI on nitrofuranation at home - recently prescribed doxycycline 100 mg BID, picked up 11/06 - started ceftriaxone 1g daily - IV fluids NS 75cc/hr (1 bag) - Tylenol for fevers - start bacid for chronic UTI Rhabdo: 2/2 prolonged stay no floor status post fall - elevated CPK & CK-MB >> continue to trend - IV fluids - monitor kidney function - PT evaluation for mobility Troponemia: most likely demand ischemia - 0.07 - continue to trend - EKG Anemia: microcytic iron def anemia/ most likely chronic - iron studies - continue to monitor hbg/hct - continue daily iron supplements Chronic Venous Insufficiency w/neuropathic pain - marvin bandages legs - wounds were just wrapped, reevaluate wound tomorrow consider wound care consult - continue gabapentin 300 mg HS HTN - continue metoprolol 25 mg BID - continue isosorbide mononitrate ER 30 mg daily HLD - continue Lipitor 20 and fenofibrate 135 daily DM2 - continue metformin 1000 BID - hold pioglitazone for now - BGM ACHS Hypothyroid - continue synthroid 50 mcg daily DVT Prophylaxis - Lovenox 40 sq FEN - IVF - replenish electrolytes as needed - DM & NA controlled diet Other: - Called patient's pharmacy for med rec - will call Dr. Rodriguez (PCP) tomorrow - discuss possibility of [employer] and overall home safety with classification case manager Visit type - Medication Review Med list reviewed for High Risk Meds patients 65 and older: Yes - Emergency Visit Emergency Visit: Yes ED Registration Date: 11/08/19 Care time: The patient presented to the Emergency Department on the above date and was hospitalized for further evaluation of their emergent condition. - New Patient This patient is new to me today: Yes Date on this admission: 11/08/19 - Critical Care Critical Care patient: No ATTENDING PHYSICIAN STATEMENT I saw and evaluated the patient. I reviewed the resident's note and discussed the case with the resident. I agree with the resident's findings and plan as documented. SUBJECTIVE: OBJECTIVE: ASSESSMENT AND PLAN:
[2019-11-08] MEDS: LACTOBACILLUS ACIDOPHILUS 1 TABLET PO SCH (20:58)
[2019-11-08] MEDS ORDERED: PATIENT'S OWN MEDICATION (NON-FORMULARY) (Metformin Hcl [Glucophage] 1,000 MG) PO SCH (22:00)
[2019-11-08 22:53] VITALS: BMI 36.3
[2019-11-08] MEDS: GABAPENTIN 300 MG CAPSULE PO SCH (23:30)
[2019-11-08] MEDS: METOPROLOL TARTRATE 25 MG TABLET (FP) PO SCH (23:30)
[2019-11-08] MEDS: LIDOCAINE PATCH REMOVAL MC SCH (23:31)
[2019-11-08] MEDS: ATORVASTATIN CA 20 MG TABLET (FP) PO SCH (23:31)
[2019-11-09] MEDS: metFORMIN HCL 500 MG TABLET (FP) PO SCH ×2 (06:28→17:14)
[2019-11-09] MEDS: LEVOTHYROXINE NA 50 MCG TABLET (FP) PO SCH (06:29)
[2019-11-09 08:06] LABS: HEMOGLOBIN 8.9 GM/dL (10.7-15.3); MCHC 31.6 g/dl (32.0-36.0); MEAN CELL VOLUME 72.8 fl (80-96); MEAN PLT VOLUME 7.5 fl (7.5-11.1); PLATELET COUNT 249 K/MM3 (134-434); RBC 3.85 M/mm3 (3.60-5.2); RDW 19.1 % (11.6-15.6); WHITE BLOOD COUNT 6.2 K/mm3 (4.0-10.0)
[2019-11-09 08:42] LABS: POTASSIUM 4.8 mmol/L (3.5-5.1)
[2019-11-09] MEDS ORDERED: PT OWN MED DRAWER 7, Y5N ONE (08:43)
[2019-11-09] MEDS ORDERED: cefTRIAXone SODIUM 1 GM VIAL ONE (08:43)
[2019-11-09] MEDS ORDERED: DEXTROSE 5%-WATER - 50 ML IVPB ONE (08:43)
[2019-11-09] MEDS ORDERED: INSULIN SLIDING SCALE (NOVOLOG) 1 VIAL SQ SCH (08:45)
[2019-11-09] MEDS: INSULIN SLIDING SCALE (NOVOLOG) 1 VIAL SQ SCH ×3 (09:00→17:15)
[2019-11-09] MEDS: ACETAMINOPHEN 325 MG TABLET (FP) PO PRN ×2 (09:05→21:03)
[2019-11-09] MEDS: ENOXAPARIN NA (PORCINE) 40 MG/0.4 ML DISP.SYRIN SQ SCH (09:06)
[2019-11-09] MEDS: FENOFIBRIC ACID 135 MG CAP PO SCH (09:06)
[2019-11-09] MEDS: METOPROLOL TARTRATE 25 MG TABLET (FP) PO SCH ×2 (09:06→21:02)
[2019-11-09] MEDS: FERROUS SO4 325 MG TABLET (FP) PO SCH (09:06)
[2019-11-09] MEDS: LACTOBACILLUS ACIDOPHILUS 1 TABLET PO SCH (09:06)
[2019-11-09] MEDS: ISOSORBIDE MONONITRATE 30 MG TAB.SR.24H (FP) PO SCH (09:06)
[2019-11-09] MEDS: CEFTRIAXONE 1 GM in DEXTROSE 5%-WATER - 50 ML IVPB SCH (09:11)
[2019-11-09] MEDS: SODIUM CHLORIDE 1,000 ML IV SCH ×2 (09:12→09:28)
[2019-11-09 09:17] LABS: BLOOD UREA NITROGEN 28.9 mg/dL (7-18); CALCIUM 8.8 mg/dL (8.5-10.1); CREATININE 1.3 mg/dL (0.55-1.3); MAGNESIUM 1.9 mg/dL (1.8-2.4); PHOSPHOROUS 3.4 mg/dL (2.5-4.9)
--- NOTE | 2019-11-09 09:20 | PN ---
Teaching Attending Note Name of Resident: Ruchi Ruiz ATTENDING PHYSICIAN STATEMENT I saw and evaluated the patient. I reviewed the resident's note and discussed the case with the resident. I agree with the resident's findings and plan as documented. SUBJECTIVE: Patient is feeling better ,still feels tired but better OBJECTIVE: Vital Signs Temperature 98.7 F 11/09/19 06:00 Pulse Rate 98 H 11/09/19 06:00 Respiratory Rate 20 11/09/19 06:00 Blood Pressure 114/46 L 11/09/19 06:00 O2 Sat by Pulse Oximetry (%) 92 L 11/09/19 06:00 PE: per resident's note LE: chronic venous stasis CBCD WBC 6.2 K/mm3 (4.0-10.0) 11/09/19 06:40 RBC 3.85 M/mm3 (3.60-5.2) 11/09/19 06:40 Hgb 8.9 GM/dL (10.7-15.3) L 11/09/19 06:40 Hct 28.0 % (32.4-45.2) L 11/09/19 06:40 MCV 72.8 fl (80-96) L 11/09/19 06:40 MCHC 31.6 g/dl (32.0-36.0) L 11/09/19 06:40 RDW 19.1 % (11.6-15.6) H 11/09/19 06:40 Plt Count 249 K/MM3 (134-434) 11/09/19 06:40 MPV 7.5 fl (7.5-11.1) 11/09/19 06:40 CMP Sodium 141 mmol/L (136-145) 11/09/19 06:40 Potassium 4.8 mmol/L (3.5-5.1) 11/09/19 06:40 Chloride 109 mmol/L (98-107) H 11/09/19 06:40 Carbon Dioxide 23 mmol/L (21-32) 11/08/19 14:35 Anion Gap 11 MMOL/L (8-16) 11/08/19 14:35 BUN 28.9 mg/dL (7-18) H 11/08/19 14:35 Creatinine 1.2 mg/dL (0.55-1.3) 11/08/19 14:35 Random Glucose 285 mg/dL (74-106) H 11/08/19 14:35 Calcium 9.4 mg/dL (8.5-10.1) 11/08/19 14:35 Total Bilirubin 0.5 mg/dL (0.2-1) 11/08/19 14:35 AST 76 U/L (15-37) H 11/08/19 14:35 ALT 20 U/L (13-61) 11/08/19 14:35 Alkaline Phosphatase 70 U/L (45-117) 11/08/19 14:35 Total Protein 7.4 g/dl (6.4-8.2) 11/08/19 14:35 Albumin 3.2 g/dl (3.4-5.0) L 11/08/19 14:35 CARDIAC ENZYMES Creatine Kinase 3769 U/L (26-192) H 11/08/19 14:35 Troponin I 0.03 ng/ml (0.00-0.05) 11/09/19 02:35 Current Medications Generic Name Dose Route Start Last Admin Trade Name Freq PRN Reason Stop Dose Admin Acetaminophen 650 mg 11/08/19 19:37 11/09/19 09:05 Tylenol - PO 650 mg Q6H PRN Administration Fever Or Pain Atorvastatin Calcium 20 mg 11/08/19 22:00 11/08/19 23:31 Lipitor - PO 20 mg HS JESÚS Administration Enoxaparin Sodium 40 mg 11/09/19 10:00 11/09/19 09:06 Lovenox - SQ 40 mg DAILY JESÚS Administration Fenofibric Acid 135 mg 11/09/19 10:00 11/09/19 09:06 Trilipix - PO 135 mg DAILY JESÚS Administration Ferrous Sulfate 325 mg 11/09/19 10:00 11/09/19 09:06 Feosol - PO 325 mg DAILY JESÚS Administration Gabapentin 300 mg 11/08/19 22:00 11/08/19 23:30 Neurontin - PO 300 mg HS JESÚS Administration Ceftriaxone Sodium 1 gm/ 50 mls @ 100 mls/hr 11/09/19 10:00 11/09/19 09:11 Dextrose IVPB 100 mls/hr DAILY JESÚS Administration Sodium Chloride 1,000 mls @ 75 mls/hr 11/09/19 06:45 11/09/19 09:12 Normal Saline - IV 11/09/19 20:04 Not Given ASDIR [facility] Insulin Aspart 1 vial 11/09/19 08:45 Novolog Vial Sliding Scale - SQ TIDAC [facility] Protocol Isosorbide Mononitrate 30 mg 11/09/19 10:00 11/09/19 09:06 Imdur - PO 30 mg DAILY JESÚS Administration Lactobacillus Acidophilus 1 tab 11/08/19 19:45 11/09/19 09:06 Bacid - PO 1 tab DAILY JESÚS Administration Levothyroxine Sodium 50 mcg 11/09/19 07:00 11/09/19 06:29 Synthroid - PO 50 mcg ACBK [facility] Administration Metformin HCl 1,000 mg 11/09/19 07:00 11/09/19 06:28 Glucophage - PO 1,000 mg BIDI JESÚS Administration Metoprolol Tartrate 25 mg 11/08/19 22:00 11/09/19 09:06 Lopressor - PO 25 mg BID JESÚS Administration Miscellaneous 1 each 11/08/19 22:00 11/08/19 23:31 Lidoderm Patch Removal MC 1 each DAILY@2200 JESÚS Administration Multi-Ingredient Ointment 1 applic 11/09/19 10:00 Zinc Oxide TP DAILY [facility] Microbiology 11/08/19 14:35 Blood - Peripheral Venous Blood Culture - Preliminary NO GROWTH OBTAINED AFTER 48 HOURS, INCUBATION TO C ONTINUE FOR 3 DAYS. 11/08/19 14:35 Blood - Peripheral Venous Blood Culture - Preliminary NO GROWTH OBTAINED AFTER 48 HOURS, INCUBATION TO CO NTINUE FOR 3 DAYS. CXR: no acute pathology , sclerotic knot, right shoulder replacement CT of Lspine: no fx Ct of the head: neg ASSESSMENT AND PLAN: Patient is a 74yof with pmhx HTN, HLD, CAD , hypothyroid, T2DM, venous insufficiency, uterine CA (s/p hysterectomy) & recurrent UTIs,presented to the ED s/p fall. #S/p fall #Acute Rhabdo. with CPk level of 4K-->2k trending down , will continue IVF for now, continue to hold Statin for now. #Sepsis: due to UTI, on IV Rocephin #Recurrent UTIs on IV Rocephin 1gm IV daily, UA, urine cx #CPK elevated s/p fall , fall precaution, PT, follow CPk level daily, IVF x 1 liter #Microcytic anemia: Iron studies, B12, FA #Chronic venous stasis : marvin wrap DVt Px: lovenox
[2019-11-09] MEDS ORDERED: FERROUS SO4 325 MG TABLET (FP) PO SCH (10:00)
[2019-11-09] MEDS ORDERED: FENOFIBRATE MICRONIZED PO SCH (10:00)
[2019-11-09] MEDS ORDERED: ZINC OXIDE 20% TOPICAL OINTMENT 30 GM TUBE TP SCH (10:00)
[2019-11-09] MEDS ORDERED: PATIENT'S OWN MEDICATION (NON-FORMULARY) (Ferrous Sulfate [Ferrous Sulfate] 325 MG) PO SCH (10:00)
[2019-11-09] MEDS ORDERED: LEVOTHYROXINE NA 50 MCG TABLET (FP) PO SCH (10:00)
[2019-11-09] MEDS ORDERED: FENOFIBRIC ACID 135 MG CAP PO SCH (10:00)
[2019-11-09] MEDS ORDERED: INSULIN (NOVOLOG) ASPART 100 UNITS/ML 10ML VIAL ONE ×2 (11:18→17:32)
--- NOTE | 2019-11-09 14:23 | PN ---
Physical Exam: SUBJECTIVE: Patient seen and examined bedside. Resting comfortable. Reports sleeping well. Says there is still increased frequency/urgency with urination. Otherwise denies fever, chest pain, SOB, n/v/d. OBJECTIVE: Vital Signs 11/09/19 09:00 Temperature 98.6 F Pulse Rate 100 H Respiratory 20 Rate Blood Pressure 114/53 L O2 Sat by Pulse 94 L Oximetry (%) GENERAL: The patient is A&O x 3 HEAD: Normal with no signs of trauma. EYES: PERRL, extraocular movements intact, sclera anicteric, conjunctiva clear. ENT: moist mucous membranes.. LUNGS: Breath sounds equal & CTA BL HEART: Regular rhythm, tachy, S1, S2 ABDOMEN: Obese, soft, nontender, nondistended. Breasts BL erythematous rash under breasts, worse on left side EXTREMITIES: warm, well-perfused. Chronic BL venous stasis dermatitis. L ulcer on plantar aspect of heel stage 2. R heel ulcer stage 1. NEUROLOGICAL: Cranial nerves II through XII grossly intact. Normal speech PSYCH: Normal mood, normal affect. SKIN: Venous stasis dermatitis BL legs Laboratory Results - last 24 hr 11/08/19 11/08/19 11/08/19 14:35 14:35 14:35 WBC 8.3 RBC 4.35 Hgb 10.2 L Hct 31.8 L MCV 73.1 L MCH 23.5 L D MCHC 32.2 RDW 19.0 H Plt Count 302 D MPV 7.7 Absolute Neuts (auto) 5.8 Neutrophils % 69.6 Lymphocytes % 21.9 Monocytes % 8.0 Eosinophils % 0.1 D Basophils % 0.4 Nucleated RBC % 0 PT with INR 13.20 H INR 1.12 H PTT (Actin FS) 28.3 VBG pH POC VBG pCO2 POC VBG pO2 VBG HCO3 VBG O2 Sat (Anthony) VBG Base Excess Sodium Potassium Chloride Carbon Dioxide Anion Gap BUN Creatinine Est GFR (CKD-EPI)AfAm Est GFR (CKD-EPI)NonAf POC Glucometer Random Glucose Lactic Acid Calcium Phosphorus Magnesium Iron TIBC Iron Saturation Unsaturated IBC Ferritin Total Bilirubin AST ALT Alkaline Phosphatase Creatine Kinase Creatine Kinase Index CK-MB (CK-2) Troponin I 0.07 H Total Protein Albumin Vitamin B12 Serum Folate Urine Color Urine Appearance Urine pH Ur Specific [place] Urine Protein Urine Glucose (UA) Urine Ketones Urine Blood Urine Nitrite Urine Bilirubin Urine Urobilinogen Ur Leukocyte Esterase Urine WBC (Auto) Urine RBC (Auto) Urine Casts (Auto) U Epithel Cells (Auto) Urine Bacteria (Auto) COVID-19 (SANDRA) 11/08/19 11/08/19 11/08/19 14:35 14:35 14:35 WBC RBC Hgb Hct MCV MCH MCHC RDW Plt Count MPV Absolute Neuts (auto) Neutrophils % Lymphocytes % Monocytes % Eosinophils % Basophils % Nucleated RBC % PT with INR INR PTT (Actin FS) VBG pH 7.451 H POC VBG pCO2 32.0 L POC VBG pO2 52.1 H VBG HCO3 21.8 L VBG O2 Sat (Anthony) 88.9 H VBG Base Excess -1.5 Sodium 137 Potassium 4.8 Chloride 104 Carbon Dioxide 23 Anion Gap 11 BUN 28.9 H Creatinine 1.2 Est GFR (CKD-EPI)AfAm 50.84 Est GFR (CKD-EPI)NonAf 43.86 POC Glucometer Random Glucose 285 H Lactic Acid 1.7 Calcium 9.4 Phosphorus Magnesium Iron TIBC Iron Saturation Unsaturated IBC Ferritin Total Bilirubin 0.5 AST 76 H ALT 20 Alkaline Phosphatase 70 Creatine Kinase 3769 H Creatine Kinase Index 0.4 CK-MB (CK-2) 18.4 H Troponin I Total Protein 7.4 Albumin 3.2 L Vitamin B12 Serum Folate Urine Color Urine Appearance Urine pH Ur Specific [place] Urine Protein Urine Glucose (UA) Urine Ketones Urine Blood Urine Nitrite Urine Bilirubin Urine Urobilinogen Ur Leukocyte Esterase Urine WBC (Auto) Urine RBC (Auto) Urine Casts (Auto) U Epithel Cells (Auto) Urine Bacteria (Auto) COVID-19 (SANDRA) 11/08/19 11/08/19 11/08/19 14:55 16:45 19:47 WBC RBC Hgb Hct MCV MCH MCHC RDW Plt Count MPV Absolute Neuts (auto) Neutrophils % Lymphocytes % Monocytes % Eosinophils % Basophils % Nucleated RBC % PT with INR INR PTT (Actin FS) VBG pH POC VBG pCO2 POC VBG pO2 VBG HCO3 VBG O2 Sat (Anthony) VBG Base Excess Sodium Potassium Chloride Carbon Dioxide Anion Gap BUN Creatinine Est GFR (CKD-EPI)AfAm Est GFR (CKD-EPI)NonAf POC Glucometer 327 Random Glucose Lactic Acid Calcium Phosphorus Magnesium Iron TIBC Iron Saturation Unsaturated IBC Ferritin Total Bilirubin AST ALT Alkaline Phosphatase Creatine Kinase Creatine Kinase Index CK-MB (CK-2) Troponin I Total Protein Albumin Vitamin B12 Serum Folate Urine Color Yellow Urine Appearance Cloudy Urine pH 5.0 D Ur Specific [place] 1.018 Urine Protein 1+ H Urine Glucose (UA) 3+ H Urine Ketones Negative Urine Blood 3+ H Urine Nitrite Positive H Urine Bilirubin Negative Urine Urobilinogen 1.0 Ur Leukocyte Esterase 1+ H Urine WBC (Auto) 279 Urine RBC (Auto) 22 Urine Casts (Auto) 1 U Epithel Cells (Auto) 2 Urine Bacteria (Auto) >10,000 COVID-19 (SANDRA) Not detected 11/08/19 11/08/19 11/09/19 19:55 23:34 02:35 WBC RBC Hgb Hct MCV MCH MCHC RDW Plt Count MPV Absolute Neuts (auto) Neutrophils % Lymphocytes % Monocytes % Eosinophils % Basophils % Nucleated RBC % PT with INR INR PTT (Actin FS) VBG pH POC VBG pCO2 POC VBG pO2 VBG HCO3 VBG O2 Sat (Anthony) VBG Base Excess Sodium Potassium Chloride Carbon Dioxide Anion Gap BUN Creatinine Est GFR (CKD-EPI)AfAm Est GFR (CKD-EPI)NonAf POC Glucometer 280 Random Glucose Lactic Acid Calcium Phosphorus Magnesium Iron TIBC Iron Saturation Unsaturated IBC Ferritin Total Bilirubin AST ALT Alkaline Phosphatase Creatine Kinase Creatine Kinase Index CK-MB (CK-2) Troponin I 0.09 H 0.03 Total Protein Albumin Vitamin B12 Serum Folate Urine Color Urine Appearance Urine pH Ur Specific [place] Urine Protein Urine Glucose (UA) Urine Ketones Urine Blood Urine Nitrite Urine Bilirubin Urine Urobilinogen Ur Leukocyte Esterase Urine WBC (Auto) Urine RBC (Auto) Urine Casts (Auto) U Epithel Cells (Auto) Urine Bacteria (Auto) COVID-19 (SANDRA) 11/09/19 11/09/19 11/09/19 06:36 06:40 06:40 WBC 6.2 RBC 3.85 Hgb 8.9 L Hct 28.0 L MCV 72.8 L MCH 23.0 L MCHC 31.6 L RDW 19.1 H Plt Count 249 MPV 7.5 Absolute Neuts (auto) Neutrophils % Lymphocytes % Monocytes % Eosinophils % Basophils % Nucleated RBC % PT with INR INR PTT (Actin FS) VBG pH POC VBG pCO2 POC VBG pO2 VBG HCO3 VBG O2 Sat (Anthony) VBG Base Excess Sodium 141 Potassium 4.8 Chloride 109 H Carbon Dioxide 25 Anion Gap 7 L BUN 28.9 H Creatinine 1.3 Est GFR (CKD-EPI)AfAm 46.15 Est GFR (CKD-EPI)NonAf 39.82 POC Glucometer 271 Random Glucose 272 H Lactic Acid Calcium 8.8 Phosphorus 3.4 Magnesium 1.9 Iron 24 L TIBC 264 Iron Saturation 9 L Unsaturated IBC 240 Ferritin 119.3 Total Bilirubin AST ALT Alkaline Phosphatase Creatine Kinase 3988 H Creatine Kinase Index 0.3 CK-MB (CK-2) 10.4 H Troponin I Total Protein Albumin Vitamin B12 561 Serum Folate 8 Urine Color Urine Appearance Urine pH Ur Specific [place] Urine Protein Urine Glucose (UA) Urine Ketones Urine Blood Urine Nitrite Urine Bilirubin Urine Urobilinogen Ur Leukocyte Esterase Urine WBC (Auto) Urine RBC (Auto) Urine Casts (Auto) U Epithel Cells (Auto) Urine Bacteria (Auto) COVID-19 (SANDRA) 11/09/19 11/09/19 06:40 11:15 WBC RBC Hgb Hct MCV MCH MCHC RDW Plt Count MPV Absolute Neuts (auto) Neutrophils % Lymphocytes % Monocytes % Eosinophils % Basophils % Nucleated RBC % PT with INR INR PTT (Actin FS) VBG pH POC VBG pCO2 POC VBG pO2 VBG HCO3 VBG O2 Sat (Anthony) VBG Base Excess Sodium Potassium Chloride Carbon Dioxide Anion Gap BUN Creatinine Est GFR (CKD-EPI)AfAm Est GFR (CKD-EPI)NonAf POC Glucometer 275 Random Glucose Lactic Acid Calcium Phosphorus Magnesium Iron TIBC Iron Saturation Unsaturated IBC Ferritin Total Bilirubin AST ALT Alkaline Phosphatase Creatine Kinase Creatine Kinase Index CK-MB (CK-2) 10.4 H Troponin I Total Protein Albumin Vitamin B12 Serum Folate Urine Color Urine Appearance Urine pH Ur Specific [place] Urine Protein Urine Glucose (UA) Urine Ketones Urine Blood Urine Nitrite Urine Bilirubin Urine Urobilinogen Ur Leukocyte Esterase Urine WBC (Auto) Urine RBC (Auto) Urine Casts (Auto) U Epithel Cells (Auto) Urine Bacteria (Auto) COVID-19 (SANDRA) Active Medications Generic Name Dose Route Start Last Admin Trade Name Freq PRN Reason Stop Dose Admin Acetaminophen 650 mg 11/08/19 19:37 11/09/19 09:05 Tylenol - PO 650 mg Q6H PRN Administration Fever Or Pain Atorvastatin Calcium 20 mg 11/08/19 22:00 08/12/20 23:31 Lipitor - PO 20 mg HS JESÚS Administration Emollient Ointment 1 applic 11/09/19 12:45 Aquaphor - TP DAILY JESÚS Enoxaparin Sodium 40 mg 11/09/19 10:00 11/09/19 09:06 Lovenox - SQ 40 mg DAILY JESÚS Administration Fenofibric Acid 135 mg 11/09/19 10:00 11/09/19 09:06 Trilipix - PO 135 mg DAILY JESÚS Administration Ferrous Sulfate 325 mg 11/09/19 10:00 11/09/19 09:06 Feosol - PO 325 mg DAILY JESÚS Administration Gabapentin 300 mg 11/08/19 22:00 11/08/19 23:30 Neurontin - PO 300 mg HS JESÚS Administration Ceftriaxone Sodium 1 gm/ 50 mls @ 100 mls/hr 11/09/19 10:00 11/09/19 09:11 Dextrose IVPB 100 mls/hr DAILY JESÚS Administration Sodium Chloride 1,000 mls @ 75 mls/hr 11/09/19 06:45 11/09/19 09:28 Normal Saline - IV 11/09/19 20:04 75 mls/hr ASDIR [facility] Administration Insulin Aspart 1 vial 11/09/19 08:45 11/09/19 11:30 Novolog Vial Sliding Scale - SQ 6 unit TIDAC [facility] Administration Protocol Isosorbide Mononitrate 30 mg 11/09/19 10:00 11/09/19 09:06 Imdur - PO 30 mg DAILY JESÚS Administration Lactobacillus Acidophilus 1 tab 11/08/19 19:45 11/09/19 09:06 Bacid - PO 1 tab DAILY [facility] Administration Levothyroxine Sodium 50 mcg 11/09/19 07:00 11/09/19 06:29 Synthroid - PO 50 mcg ACBK [facility] Administration Metformin HCl 1,000 mg 11/09/19 07:00 11/09/19 06:28 Glucophage - PO 1,000 mg BIDI [facility] Administration Metoprolol Tartrate 25 mg 11/08/19 22:00 11/09/19 09:06 Lopressor - PO 25 mg BID [facility] Administration Miscellaneous 1 each 11/08/19 22:00 11/08/19 23:31 Lidoderm Patch Removal MC 1 each DAILY@2200 JESÚS Administration Multi-Ingredient Ointment 1 applic 11/09/19 12:44 Zinc Oxide TP DAILY JESÚS Home Medications Medication Instructions Recorded Jaroso-3 Fatty Acids [Jaroso-3] 1,000 mg PO DAILY 04/06/14 Levothyroxine Sodium 50 mcg PO DAILY tablet 09/28/16 Fenofibrate,Micronized 135 mg PO DAILY 01/03/19 [Fenofibrate] Isosorbide Mononitrate [Isosorbide 30 mg PO DAILY 01/03/19 Mononitrate ER] Metoprolol Tartrate 25 mg PO BID 01/03/19 Cholecalciferol (Vitamin D3) 2,000 unit PO DAILY 06/11/19 [Vitamin D3] Metformin HCl [Glucophage] 1,000 mg PO BID 06/11/19 Pioglitazone HCl [Actos] 15 mg PO DAILY 06/11/19 Cyanocobalamin [Vitamin B12 -] 1,000 mcg PO DAILY 30 Days #30 06/13/19 tablet Ferrous Sulfate 325 mg PO DAILY 30 Days #30 tablet 06/13/19 Gabapentin 300 mg PO HS 11/08/19 Nitrofurantoin Macrocrystal 50 mg PO DAILY 11/08/19 [Macrodantin -] Atorvastatin Ca [Lipitor] 20 mg PO HS 11/09/19 ASSESSMENT/PLAN: Patient is 74 yo female pmhx HTN, HLD, CAD (w/blockages?), hypothyroidism, DM2, venous insufficiency, uterine CA (s/p hysterectomy) & recurrent UTI (last one 1 week ago). Presented to the ED s/p fall where she was on the ground for over 6 hours. Found to have tachycardia, fever (100.5), and + UA. Admitted to hospital for sepsis. Sepsis: 2/2 UTI - Urine cultures pending - ceftriaxone 1g daily: day 2 - IV fluids NS 75cc/hr 2nd bag today - chronic UTI on nitrofuranation at home - Tylenol for fevers/pain - bacid for chronic UTI Rhabdo: 2/2 prolonged stay no floor status post fall - CPK still elevated, continue to trend - IV fluids - monitor kidney function - PT evaluation for mobility - fall precautions in place Troponemia: most likely demand ischemia - 0.07 >> 0.09 >> 0.03 Anemia: microcytic iron def anemia/ most likely chronic - iron studies: decreased iron, normal TIBC, normal ferritin - monitor Hbg/Hct - continue daily iron supplements - consider venofur tx Chronic Venous Insufficiency w/neuropathic pain - BL ulcers on plantar aspect of heels, worse on Left - consulted podiatry - apply aquaphor to BL legs - continue gabapentin 300 mg HS Rash Under Breasts - worse on under right breast - zinc oxide daily - continue to monitor for skin breakage HTN - continue metoprolol 25 mg BID - continue isosorbide mononitrate ER 30 mg daily HLD - Lipitor 20 mg daily - fenofibrate 135 mg daily DM2 - metformin 1000 BID - hold pioglitazone - BGM ACHS - SSI started today Hypothyroid - continue synthroid 50 mcg daily DVT Prophylaxis - Lovenox 40 sq FEN - IVF - replenish electrolytes as needed - DM controlled diet Dipso: - talked with son bedside this afternoon and provided update. Discussed possibility of patient going to STR. Visit type - Emergency Visit Emergency Visit: Yes ED Registration Date: 11/08/19 Care time: The patient presented to the Emergency Department on the above date and was hospitalized for further evaluation of their emergent condition. - New Patient This patient is new to me today: No - Critical Care Critical Care patient: No - Discharge Referral Referred to [facility] Med P.C[facility] Yes Physician Referral: Evaristo Sterling DO ([facility]) (wound care) - Medication Review Med list reviewed for High Risk Meds patients 65 and older: Yes ATTENDING PHYSICIAN STATEMENT I saw and evaluated the patient. I reviewed the resident's note and discussed the case with the resident. I agree with the resident's findings and plan as documented. SUBJECTIVE: OBJECTIVE: ASSESSMENT AND PLAN:
--- NOTE | 2019-11-09 14:47 | EKG ---
Test Reason : Blood Pressure : / mmHG Vent. Rate : 104 BPM Atrial Rate : 104 BPM P-R Int : 154 ms QRS Dur : 070 ms QT Int : 344 ms P-R-T Axes : 036 036 057 degrees QTc Int : 452 ms SINUS TACHYCARDIA CANNOT RULE OUT ANTERIOR INFARCT , AGE UNDETERMINED ABNORMAL ECG WHEN COMPARED WITH ECG OF 12-JUN-2019 09:55, NONSPECIFIC T WAVE ABNORMALITY NOW EVIDENT IN LATERAL LEADS Confirmed by ANDREW REDDY, DEMI ([id number]) on 11/09/2019 2:47:06 PM Referred By: Confirmed By:DEMI MORALES MD
[2019-11-09] MEDS: MINERAL OIL/PET HY-PHL TOPICAL OINTMENT 454 GM JAR TP SCH (17:15)
[2019-11-09] MEDS: GABAPENTIN 300 MG CAPSULE PO SCH (21:02)
[2019-11-09] MEDS: ATORVASTATIN CA 20 MG TABLET (FP) PO SCH (21:02)
[2019-11-09] MEDS: LIDOCAINE PATCH REMOVAL MC SCH (21:02)
[2019-11-10] MEDS ORDERED: ACETAMINOPHEN 1000 MG/100 ML VIAL (NON FORMULARY) IVPB ONE (03:00)
[2019-11-10] MEDS: INSULIN SLIDING SCALE (NOVOLOG) 1 VIAL SQ SCH ×3 (07:16→17:23)
[2019-11-10] MEDS: LEVOTHYROXINE NA 50 MCG TABLET (FP) PO SCH (07:16)
[2019-11-10] MEDS: metFORMIN HCL 500 MG TABLET (FP) PO SCH ×2 (07:16→17:23)
[2019-11-10 08:19] LABS: HEMATOCRIT 26.3 % (32.4-45.2); HEMOGLOBIN 8.3 GM/dL (10.7-15.3); MCHC 31.5 g/dl (32.0-36.0); MEAN CELL VOLUME 73.1 fl (80-96); MEAN PLT VOLUME 7.4 fl (7.5-11.1); PLATELET COUNT 213 K/MM3 (134-434); RDW 19.1 % (11.6-15.6); WHITE BLOOD COUNT 5.4 K/mm3 (4.0-10.0)
[2019-11-10 08:48] LABS: BLOOD UREA NITROGEN 25.4 mg/dL (7-18); CALCIUM 8.5 mg/dL (8.5-10.1); CREATININE 1.1 mg/dL (0.55-1.3); MAGNESIUM 1.7 mg/dL (1.8-2.4); PHOSPHOROUS 2.9 mg/dL (2.5-4.9); POTASSIUM 4.9 mmol/L (3.5-5.1)
[2019-11-10] MEDS ORDERED: MAGNESIUM OXIDE 400 MG TABLET (FP) PO ONE (09:15)
[2019-11-10] MEDS ORDERED: DEXTROSE 5%-WATER - 50 ML IVPB ONE (09:33)
[2019-11-10] MEDS ORDERED: PT OWN MED DRAWER 7, Y5N ONE (09:33)
[2019-11-10] MEDS ORDERED: cefTRIAXone SODIUM 1 GM VIAL ONE (09:33)
[2019-11-10] MEDS: FENOFIBRIC ACID 135 MG CAP PO SCH (10:15)
[2019-11-10] MEDS: CEFTRIAXONE 1 GM in DEXTROSE 5%-WATER - 50 ML IVPB SCH (10:15)
[2019-11-10] MEDS: ENOXAPARIN NA (PORCINE) 40 MG/0.4 ML DISP.SYRIN SQ SCH (10:15)
[2019-11-10] MEDS: LACTOBACILLUS ACIDOPHILUS 1 TABLET PO SCH (10:15)
[2019-11-10] MEDS: METOPROLOL TARTRATE 25 MG TABLET (FP) PO SCH ×2 (10:15→21:35)
[2019-11-10] MEDS: FERROUS SO4 325 MG TABLET (FP) PO SCH (10:15)
[2019-11-10] MEDS: ISOSORBIDE MONONITRATE 30 MG TAB.SR.24H (FP) PO SCH (10:15)
[2019-11-10] MEDS: ZINC OXIDE 20% TOPICAL OINTMENT 30 GM TUBE TP SCH (10:16)
[2019-11-10] MEDS: MINERAL OIL/PET HY-PHL TOPICAL OINTMENT 454 GM JAR TP SCH (10:16)
[2019-11-10] MEDS: POLYETHYLENE GLYCOL 3350 119 GM BTL PO SCH (10:17)
[2019-11-10] MEDS ORDERED: SODIUM CHLORIDE 1,000 ML IV SCH (14:15)
--- NOTE | 2019-11-10 14:31 | PN ---
Physical Exam: SUBJECTIVE: Patient seen and examined bedside. Feeling very tired. No events over night. Reports decreased frequency and dysuria. Denies fever, SOB, and chest pain. OBJECTIVE: Vital Signs 11/10/19 10:00 Temperature 98.2 F Pulse Rate 96 H Respiratory 18 Rate Blood Pressure 142/56 L O2 Sat by Pulse 95 Oximetry (%) GENERAL: The patient is A&O x 3. Lethargic today. HEAD: Normal with no signs of trauma. EYES: PERRL, extraocular movements intact, sclera anicteric, conjunctiva clear. ENT: moist mucous membranes. LUNGS: Breath sounds equal & CTA BL HEART: Regular rhythm, tachy, S1, S2 ABDOMEN: Obese, soft. Breasts BL erythematous rash under breasts, worse on left side, zinc applied, looking better EXTREMITIES: warm, well-perfused. L ulcer on plantar aspect of heel stage 2. R heel ulcer stage 1. NEUROLOGICAL: Normal speech PSYCH: Normal mood, normal affect. SKIN: Venous stasis dermatitis BL legs Laboratory Results - last 24 hr 11/09/19 11/09/19 11/10/19 17:06 20:56 07:05 WBC 5.4 RBC 3.60 Hgb 8.3 L Hct 26.3 L MCV 73.1 L MCH 23.0 L MCHC 31.5 L RDW 19.1 H Plt Count 213 MPV 7.4 L Sodium Potassium Chloride Carbon Dioxide Anion Gap BUN Creatinine Est GFR (CKD-EPI)AfAm Est GFR (CKD-EPI)NonAf POC Glucometer 285 304 Random Glucose Hemoglobin A1c % Calcium Phosphorus Magnesium Creatine Kinase Creatine Kinase Index CK-MB (CK-2) 11/10/19 11/10/19 11/10/19 07:05 07:05 07:14 WBC RBC Hgb Hct MCV MCH MCHC RDW Plt Count MPV Sodium 140 Potassium 4.9 Chloride 110 H Carbon Dioxide 25 Anion Gap 5 L BUN 25.4 H Creatinine 1.1 Est GFR (CKD-EPI)AfAm 56.48 Est GFR (CKD-EPI)NonAf 48.73 POC Glucometer 211 Random Glucose 218 H Hemoglobin A1c % 9.6 H Calcium 8.5 Phosphorus 2.9 Magnesium 1.7 L Creatine Kinase 1516 H Creatine Kinase Index 0.1 CK-MB (CK-2) 1.8 11/10/19 12:53 WBC RBC Hgb Hct MCV MCH MCHC RDW Plt Count MPV Sodium Potassium Chloride Carbon Dioxide Anion Gap BUN Creatinine Est GFR (CKD-EPI)AfAm Est GFR (CKD-EPI)NonAf POC Glucometer 244 Random Glucose Hemoglobin A1c % Calcium Phosphorus Magnesium Creatine Kinase Creatine Kinase Index CK-MB (CK-2) Active Medications Generic Name Dose Route Start Last Admin Trade Name Freq PRN Reason Stop Dose Admin Acetaminophen 650 mg 11/08/19 19:37 11/09/19 21:03 Tylenol - PO 650 mg Q6H PRN Administration Fever Or Pain Atorvastatin Calcium 20 mg 11/08/19 22:00 11/09/19 21:02 Lipitor - PO 20 mg HS JESÚS Administration Emollient Ointment 1 applic 11/09/19 12:45 11/10/19 10:16 Aquaphor - TP 1 applic DAILY JESÚS Administration Enoxaparin Sodium 40 mg 11/09/19 10:00 11/10/19 10:15 Lovenox - SQ 40 mg DAILY JESÚS Administration Fenofibric Acid 135 mg 11/09/19 10:00 11/10/19 10:15 Trilipix - PO 135 mg DAILY JESÚS Administration Ferrous Sulfate 325 mg 11/09/19 10:00 11/10/19 10:15 Feosol - PO 325 mg DAILY JESÚS Administration Gabapentin 300 mg 11/08/19 22:00 11/09/19 21:02 Neurontin - PO 300 mg HS JESÚS Administration Ceftriaxone Sodium 1 gm/ 50 mls @ 100 mls/hr 11/09/19 10:00 11/10/19 10:15 Dextrose IVPB 100 mls/hr DAILY JESÚS Administration Sodium Chloride 1,000 mls @ 75 mls/hr 11/10/19 14:15 Normal Saline - IV 11/11/19 03:34 ASDIR JESÚS Insulin Aspart 1 vial 11/10/19 06:22 11/10/19 12:59 Novolog Vial Sliding Scale - SQ 6 units TIDAC JESÚS Administration Protocol Isosorbide Mononitrate 30 mg 11/09/19 10:00 11/10/19 10:15 Imdur - PO 30 mg DAILY JESÚS Administration Lactobacillus Acidophilus 1 tab 11/08/19 19:45 11/10/19 10:15 Bacid - PO 1 tab DAILY JESÚS Administration Levothyroxine Sodium 50 mcg 11/09/19 07:00 08/14/20 07:16 Synthroid - PO 50 mcg ACBK JES[facility]S Administration Metformin HCl 1,000 mg 11/09/19 07:00 11/10/19 07:16 Glucophage - PO 1,000 mg BIDI JESÚS Administration Metoprolol Tartrate 25 mg 11/08/19 22:00 11/10/19 10:15 Lopressor - PO 25 mg BID JESÚS Administration Multi-Ingredient Ointment 1 applic 11/09/19 12:44 11/10/19 10:16 Zinc Oxide TP 1 applic DAILY JESÚS Administration Polyethylene Glycol 17 gm 11/10/19 10:00 11/10/19 10:17 Miralax (For Daily Use) - PO Not Given DAILY JESÚS ASSESSMENT/PLAN: Patient is 74 yo female pmhx HTN, HLD, CAD (w/blockages?), hypothyroidism, DM2, venous insufficiency, uterine CA (s/p hysterectomy) & recurrent UTI (last one 1 week ago). Presented to the ED s/p fall where she was on the ground for over 6 hours. Found to have tachycardia, fever (100.5), and + UA. Admitted to hospital for sepsis. Sepsis: 2/2 UTI - Urine cultures pending - ceftriaxone 1g daily: day 3 - chronic UTI on nitrofuranation at home - Tylenol for fevers/pain - bacid for chronic UTI Rhabdo: 2/2 prolonged stay no floor status post fall - CPK trending down - IV fluids ,1 bag NS 75cc/hr today - monitor kidney function - fall precautions in place IDDM2 - metformin 1000 BID - hold pioglitazone - BGM ACHS - Patient now reports being on insulin pump. PCP office has script for novolog but office not sure of dose and either is patient - continue SSI and calculate dose to start regimen tomorrow Chronic Venous Insufficiency w/neuropathic pain - BL ulcers on plantar aspect of heels, worse on Left - consulted podiatry (Dr. Ng) would recc heel offloading shoe if is it available to obtain while admitted; if not can f/u in the wound care center no acute podiatry intervention at this time wbat to the right; wb to the forefoot on left - aquaphor to BL legs w/ marvin bandages - continue gabapentin 300 mg HS Rash Under Breasts - worse on under right breast - zinc oxide daily - continue to monitor for skin breakage Anemia: microcytic iron def anemia/ most likely chronic - iron studies: decreased iron, normal TIBC, normal ferritin - monitor Hbg/Hct - continue daily iron supplements - consider venofur tx HTN - continue metoprolol 25 mg BID - continue isosorbide mononitrate ER 30 mg daily HLD - Lipitor stopped - fenofibrate 135 mg daily Hypothyroid - continue synthroid 50 mcg daily DVT Prophylaxis - Lovenox 40 sq FEN - IVF - replenish electrolytes as needed - DM controlled diet Dipso: most likely [facility] hospital Visit type - Emergency Visit Emergency Visit: Yes ED Registration Date: 11/08/19 Care time: The patient presented to the Emergency Department on the above date and was hospitalized for further evaluation of their emergent condition. - New Patient This patient is new to me today: No - Critical Care Critical Care patient: No - Discharge Ref[facility] No - Medication Review Med list reviewed for High Risk Meds patients 65 and older: Yes ATTENDING PHYSICIAN STATEMENT I saw and evaluated the patient. I reviewed the resident's note and discussed the case with the resident. I agree with the resident's findings and plan as documented. SUBJECTIVE: OBJECTIVE: ASSESSMENT AND PLAN:
--- NOTE | 2019-11-10 15:06 | CONSULT ---
Consult - text type - Consultation Consultation Note: PODIATRY: Patient is 74 yo female pmhx HTN, HLD, CAD (w/blockages), hypothyroid, DM2, venous insufficiency, uterine CA (s/p hysterectomy) & recurrent UTI (last one 1 week ago). Presented to the ED s/p fall. She was walking to the kitchen with a plate in one hand and using her walker when she said she slipped and fell. She was unable to get up because of her knees. Podiatry consults to evaluate b/l heel ulceration. States that she has had fo ra fe months now. The right foot healed up but left still open some. Denies any other complaints. Vasc: pedal pulses palpable b/l; marvin bandage intact along the legs derm: right foot has a completely healed plantar heel ulceration; no edema, no erythema, no signs of infection is noted; left heel has a roughly 1 cm x 1 cm x 0.2 cm ulceration plantarly with a nice healthy granular base with epithelial tissue noted overlying,; no edema, no erythema, no streaking, probing, no signs of infection ' 74 y/o type 2 diabetic female seen with healed right foot ulceration and healing left heel ulceration. Evaluated and revieweed would recc heel offloading shoe if is it available to obtain while admitted; if not can f/u in the wound care center for dispensement no acute podiatry intervention at this time wbat tothe right; wb to the forefoot on left Thank you for this consult and please reconsult as needed. .
--- NOTE | 2019-11-10 18:32 | PN ---
Teaching Attending Note Name of Resident: Ruchi Ruiz ATTENDING PHYSICIAN STATEMENT I saw and evaluated the patient. I reviewed the resident's note and discussed the case with the resident. I agree with the resident's findings and plan as documented. SUBJECTIVE: Patient is awake, and feels better today. OBJECTIVE: Vital Signs Temperature 98.4 F 11/10/19 14:03 Pulse Rate 98 H 11/10/19 14:03 Respiratory Rate 16 11/10/19 14:03 Blood Pressure 121/87 11/10/19 14:03 O2 Sat by Pulse Oximetry (%) 95 11/10/19 10:00 PE;per resident's note chronic venous stasis CBCD WBC 5.4 K/mm3 (4.0-10.0) 11/10/19 07:05 RBC 3.60 M/mm3 (3.60-5.2) 11/10/19 07:05 Hgb 8.3 GM/dL (10.7-15.3) L 11/10/19 07:05 Hct 26.3 % (32.4-45.2) L 11/10/19 07:05 MCV 73.1 fl (80-96) L 11/10/19 07:05 MCHC 31.5 g/dl (32.0-36.0) L 11/10/19 07:05 RDW 19.1 % (11.6-15.6) H 11/10/19 07:05 Plt Count 213 K/MM3 (134-434) 11/10/19 07:05 MPV 7.4 fl (7.5-11.1) L 11/10/19 07:05 CMP Sodium 140 mmol/L (136-145) 11/10/19 07:05 Potassium 4.9 mmol/L (3.5-5.1) 11/10/19 07:05 Chloride 110 mmol/L (98-107) H 11/10/19 07:05 Carbon Dioxide 25 mmol/L (21-32) 11/10/19 07:05 Anion Gap 5 MMOL/L (8-16) L 11/10/19 07:05 BUN 25.4 mg/dL (7-18) H 11/10/19 07:05 Creatinine 1.1 mg/dL (0.55-1.3) 11/10/19 07:05 Random Glucose 218 mg/dL (74-106) H 11/10/19 07:05 Calcium 8.5 mg/dL (8.5-10.1) 11/10/19 07:05 Total Bilirubin 0.5 mg/dL (0.2-1) 11/08/19 14:35 AST 76 U/L (15-37) H 11/08/19 14:35 ALT 20 U/L (13-61) 11/08/19 14:35 Alkaline Phosphatase 70 U/L (45-117) 11/08/19 14:35 Total Protein 7.4 g/dl (6.4-8.2) 11/08/19 14:35 Albumin 3.2 g/dl (3.4-5.0) L 11/08/19 14:35 CARDIAC ENZYMES Creatine Kinase 1516 U/L (26-192) H 11/10/19 07:05 Troponin I 0.03 ng/ml (0.00-0.05) 11/09/19 02:35 Current Medications Generic Name Dose Route Start Last Admin Trade Name Freq PRN Reason Stop Dose Admin Acetaminophen 650 mg 11/08/19 19:37 11/09/19 21:03 Tylenol - PO 650 mg Q6H PRN Administration Fever Or Pain Atorvastatin Calcium 20 mg 11/08/19 22:00 11/09/19 21:02 Lipitor - PO 20 mg HS JESÚS Administration Emollient Ointment 1 applic 11/09/19 12:45 11/10/19 10:16 Aquaphor - TP 1 applic DAILY JESÚS Administration Enoxaparin Sodium 40 mg 11/09/19 10:00 11/10/19 10:15 Lovenox - SQ 40 mg DAILY JESÚS Administration Fenofibric Acid 135 mg 11/09/19 10:00 11/10/19 10:15 Trilipix - PO 135 mg DAILY JESÚS Administration Ferrous Sulfate 325 mg 11/09/19 10:00 11/10/19 10:15 Feosol - PO 325 mg DAILY JESÚS Administration Gabapentin 300 mg 11/08/19 22:00 11/09/19 21:02 Neurontin - PO 300 mg HS JESÚS Administration Ceftriaxone Sodium 1 gm/ 50 mls @ 100 mls/hr 11/09/19 10:00 11/10/19 10:15 Dextrose IVPB 100 mls/hr DAILY JESÚS Administration Sodium Chloride 1,000 mls @ 75 mls/hr 11/10/19 14:15 11/10/19 17:23 Normal Saline - IV 11/11/19 03:34 75 mls/hr ASDIR JESÚS Administration Insulin Aspart 1 vial 11/10/19 06:22 11/10/19 17:23 Novolog Vial Sliding Scale - SQ 6 units TIDAC JESÚS Administration Protocol Isosorbide Mononitrate 30 mg 11/09/19 10:00 11/10/19 10:15 Imdur - PO 30 mg DAILY JESÚS Administration Lactobacillus Acidophilus 1 tab 11/08/19 19:45 11/10/19 10:15 Bacid - PO 1 tab DAILY JESÚS Administration Levothyroxine Sodium 50 mcg 11/09/19 07:00 11/10/19 07:16 Synthroid - PO 50 mcg [facility] Administration Metformin HCl 1,000 mg 11/09/19 07:00 11/10/19 17:23 Glucophage - PO 1,000 mg BIDI JESÚS Administration Metoprolol Tartrate 25 mg 11/08/19 22:00 11/10/19 10:15 Lopressor - PO 25 mg BID JESÚS Administration Multi-Ingredient Ointment 1 applic 11/09/19 12:44 11/10/19 10:16 Zinc Oxide TP 1 applic DAILY [facility] Administration Polyethylene Glycol 17 gm 11/10/19 10:00 11/10/19 10:17 Miralax (For Daily Use) - PO Not Given DAILY [facility] Home Medications Medication Instructions Recorded [place]-3 Fatty Acids [[place]-3] 1,000 mg PO DAILY 04/06/14 Levothyroxine Sodium 50 mcg PO DAILY tablet 09/28/16 Fenofibrate,Micronized 135 mg PO DAILY 01/03/19 [Fenofibrate] Isosorbide Mononitrate [Isosorbide 30 mg PO DAILY 01/03/19 Mononitrate ER] Metoprolol Tartrate 25 mg PO BID 01/03/19 Cholecalciferol (Vitamin D3) 2,000 unit PO DAILY 06/11/19 [Vitamin D3] Metformin HCl [Glucophage] 1,000 mg PO BID 06/11/19 Pioglitazone HCl [Actos] 15 mg PO DAILY 06/11/19 Cyanocobalamin [Vitamin B12 -] 1,000 mcg PO DAILY 30 Days #30 06/13/19 tablet Ferrous Sulfate 325 mg PO DAILY 30 Days #30 tablet 06/13/19 Gabapentin 300 mg PO HS 11/08/19 Nitrofurantoin Macrocrystal 50 mg PO DAILY 11/08/19 [Macrodantin -] Atorvastatin Ca [Lipitor] 20 mg PO HS 11/09/19 Insulin Aspart [Novolog] See Protocol SQ TID 11/10/19 Microbiology 11/08/19 14:35 Blood - Peripheral Venous Blood Culture - Preliminary NO GROWTH OBTAINED AFTER 48 HOURS, INCUBATION TO CONTINUE FOR 3 DAYS. 11/08/19 14:35 Blood - Peripheral Venous Blood Culture - Preliminary NO GROWTH OBTAINED AFTER 48 HOURS, INCUBATION TO CONTINUE FOR 3 DAYS. Laboratory Tests 11/08/19 11/09/19 11/09/19 19:55 02:35 06:40 Iron 24 L TIBC 264 Iron Saturation 9 L Unsaturated IBC 240 Ferritin 119.3 Troponin I 0.09 H 0.03 Vitamin B12 561 Serum Folate 8 CXR: no acute pathology , sclerotic knot, right shoulder replacement CT of Lspine: no fx Ct of the head: neg 11/10/2019; Left foot xray: no blastic or lytic changes , no signs of gross fx 11/10/2019: right foot xray: loss of bone density , degenerative changes with bunion formation. no acute process. ASSESSMENT AND PLAN: Patient is a 74yof with pmhx HTN, HLD, CAD , hypothyroid, T2DM, venous insufficiency, uterine CA (s/p hysterectomy) & recurrent UTIs,presented to the ED s/p fall. #S/p fall #Acute Rhabdo. with CPk level of 4K-->2k trending down , will continue IVF for now, continue to hold Statin for now. #Sepsis: due to UTI, on IV Rocephin continue #Recurrent UTIs on IV Rocephin 1gm IV daily continue , blood cx is negative #CPK elevated s/p fall , fall precaution, PT, follow CPk level daily, IVF continue #Microcytic anemia: Iron studies, B12, FA, within nl , #Chronic venous stasis with R. foot: healed plantar heel ulcer, and Left heel 1 cm x 1 cm x 0.2 cm ulcer a nice healthy granular tissue Xray of the foot DVt Px: lovenox
[2019-11-10] MEDS: GABAPENTIN 300 MG CAPSULE PO SCH (21:35)
[2019-11-10] MEDS: ACETAMINOPHEN 325 MG TABLET (FP) PO PRN (21:35)
[2019-11-11] MEDS: metFORMIN HCL 500 MG TABLET (FP) PO SCH ×2 (06:16→17:22)
[2019-11-11] MEDS: LEVOTHYROXINE NA 50 MCG TABLET (FP) PO SCH (06:16)
[2019-11-11] MEDS: INSULIN SLIDING SCALE (NOVOLOG) 1 VIAL SQ SCH ×3 (06:25→17:05)
[2019-11-11 08:21] LABS: HEMOGLOBIN 9.2 GM/dL (10.7-15.3); MCH 23.3 pg (25.7-33.7); MCHC 31.8 g/dl (32.0-36.0); MEAN CELL VOLUME 73.2 fl (80-96); MEAN PLT VOLUME 7.8 fl (7.5-11.1); PLATELET COUNT 249 K/MM3 (134-434); RBC 3.96 M/mm3 (3.60-5.2); RDW 18.7 % (11.6-15.6); WHITE BLOOD COUNT 6.5 K/mm3 (4.0-10.0)
[2019-11-11 08:45] LABS: ALBUMIN 2.4 g/dl (3.4-5.0); BILIRUBIN,TOTAL 0.3 mg/dL (0.2-1); BLOOD UREA NITROGEN 18.2 mg/dL (7-18); CALCIUM 8.4 mg/dL (8.5-10.1); CREATININE 1.1 mg/dL (0.55-1.3); MAGNESIUM 1.5 mg/dL (1.8-2.4); PHOSPHOROUS 2.5 mg/dL (2.5-4.9); POTASSIUM 4.9 mmol/L (3.5-5.1); TOT PROT 6.2 g/dl (6.4-8.2)
[2019-11-11] MEDS ORDERED: cefTRIAXone SODIUM 1 GM VIAL ONE (09:04)
[2019-11-11] MEDS ORDERED: PT OWN MED DRAWER 7, Y5N ONE (09:04)
[2019-11-11] MEDS ORDERED: DEXTROSE 5%-WATER - 50 ML IVPB ONE (09:04)
[2019-11-11] MEDS: FERROUS SO4 325 MG TABLET (FP) PO SCH (09:19)
[2019-11-11] MEDS: ISOSORBIDE MONONITRATE 30 MG TAB.SR.24H (FP) PO SCH (09:19)
[2019-11-11] MEDS: METOPROLOL TARTRATE 25 MG TABLET (FP) PO SCH ×2 (09:19→21:25)
[2019-11-11] MEDS: ZINC OXIDE 20% TOPICAL OINTMENT 30 GM TUBE TP SCH (09:20)
[2019-11-11] MEDS: CEFTRIAXONE 1 GM in DEXTROSE 5%-WATER - 50 ML IVPB SCH (09:20)
[2019-11-11] MEDS: POLYETHYLENE GLYCOL 3350 119 GM BTL PO SCH (09:20)
[2019-11-11] MEDS: ENOXAPARIN NA (PORCINE) 40 MG/0.4 ML DISP.SYRIN SQ SCH (09:20)
[2019-11-11] MEDS ORDERED: MAGNESIUM SULF 50% (8.12 MEQ/2 ML-1 GM VIAL) IVPB ONE (09:20)
[2019-11-11] MEDS: LACTOBACILLUS ACIDOPHILUS 1 TABLET PO SCH (09:20)
[2019-11-11] MEDS: FENOFIBRIC ACID 135 MG CAP PO SCH (09:20)
--- NOTE | 2019-11-11 09:20 | PN ---
Progress Note (short form) - Note Progress Note: Patient is feeling better with no acute distress Vital Signs Temperature 99.3 F 11/11/19 07:21 Pulse Rate 81 11/11/19 07:21 Respiratory Rate 20 11/11/19 07:21 Blood Pressure 128/78 11/11/19 07:21 O2 Sat by Pulse Oximetry (%) 92 L 11/11/19 07:21 GENERAL: The patient is awake, alert, and fully oriented, in no acute distress. HEAD: Normal with no signs of trauma. EYES: PERRL, extraocular movements intact, sclera anicteric, conjunctiva clear. ENT: Ears normal, oropharynx clear without exudates, moist mucous membranes. NECK: Trachea midline, full range of motion, supple. LUNGS: Breath sounds equal, clear to auscultation bilaterally, no wheezes, no crackles, no accessory muscle use. HEART: Regular rate and rhythm, S1, S2 without murmur, rub or gallop. ABDOMEN: Soft, nontender, nondistended, normoactive bowel sounds, no guarding, no rebound, no hepatosplenomegaly, no masses. EXTREMITIES: 2+ pulses, warm, chronic changes, R. foot: healed plantar heel ulceration; no edema, no erythema, no signs of infection is noted, L. heel has a roughly 1 cm x 1 cm x 0.2 cm ulceration with a nice healthy granular tissue NEUROLOGICAL: Cranial nerves II through XII grossly intact. Normal speech, gait not observed. PSYCH: Normal mood, normal affect. SKIN: Warm, dry, normal turgor, no rashes or lesions noted CBCD WBC 6.5 K/mm3 (4.0-10.0) 11/11/19 06:30 RBC 3.96 M/mm3 (3.60-5.2) 11/11/19 06:30 Hgb 9.2 GM/dL (10.7-15.3) L 11/11/19 06:30 Hct 29.0 % (32.4-45.2) L 11/11/19 06:30 MCV 73.2 fl (80-96) L 11/11/19 06:30 MCHC 31.8 g/dl (32.0-36.0) L 11/11/19 06:30 RDW 18.7 % (11.6-15.6) H 11/11/19 06:30 Plt Count 249 K/MM3 (134-434) 11/11/19 06:30 MPV 7.8 fl (7.5-11.1) 11/11/19 06:30 CMP Sodium 137 mmol/L (136-145) 11/11/19 06:30 Potassium 4.9 mmol/L (3.5-5.1) 11/11/19 06:30 Chloride 105 mmol/L (98-107) 11/11/19 06:30 Carbon Dioxide 22 mmol/L (21-32) 11/11/19 06:30 Anion Gap 10 MMOL/L (8-16) 11/11/19 06:30 BUN 18.2 mg/dL (7-18) H 11/11/19 06:30 Creatinine 1.1 mg/dL (0.55-1.3) 11/11/19 06:30 Random Glucose 253 mg/dL (74-106) H 11/11/19 06:30 Calcium 8.4 mg/dL (8.5-10.1) L 11/11/19 06:30 Total Bilirubin 0.3 mg/dL (0.2-1) 11/11/19 06:30 AST 54 U/L (15-37) H 11/11/19 06:30 ALT 23 U/L (13-61) 11/11/19 06:30 Alkaline Phosphatase 57 U/L (45-117) 11/11/19 06:30 Total Protein 6.2 g/dl (6.4-8.2) L 11/11/19 06:30 Albumin 2.4 g/dl (3.4-5.0) L 11/11/19 06:30 CARDIAC ENZYMES Creatine Kinase 1077 U/L (26-192) H 11/11/19 06:30 Troponin I 0.03 ng/ml (0.00-0.05) 11/09/19 02:35 Current Medications Generic Name Dose Route Start Last Admin Trade Name Freq PRN Reason Stop Dose Admin Acetaminophen 650 mg 11/08/19 19:37 11/10/19 21:35 Tylenol - PO 650 mg Q6H PRN Administration Fever Or Pain Atorvastatin Calcium 20 mg 11/08/19 22:00 11/09/19 21:02 Lipitor - PO 20 mg HS JESÚS Administration Emollient Ointment 1 applic 11/09/19 12:45 11/10/19 10:16 Aquaphor - TP 1 applic DAILY JESÚS Administration Enoxaparin Sodium 40 mg 11/09/19 10:00 11/10/19 10:15 Lovenox - SQ 40 mg DAILY JESÚS Administration Fenofibric Acid 135 mg 11/09/19 10:00 11/10/19 10:15 Trilipix - PO 135 mg DAILY JESÚS Administration Ferrous Sulfate 325 mg 11/09/19 10:00 11/10/19 10:15 Feosol - PO 325 mg DAILY JESÚS Administration Gabapentin 300 mg 11/08/19 22:00 11/10/19 21:35 Neurontin - PO 300 mg HS JESÚS Administration Ceftriaxone Sodium 1 gm/ 50 mls @ 100 mls/hr 11/09/19 10:00 11/10/19 10:15 Dextrose IVPB 100 mls/hr DAILY JESÚS Administration Insulin Aspart 1 vial 11/10/19 06:22 11/11/19 06:25 Novolog Vial Sliding Scale - SQ 6 units TIDAC JESÚS Administration Protocol Isosorbide Mononitrate 30 mg 11/09/19 10:00 11/10/19 10:15 Imdur - PO 30 mg DAILY JESÚS Administration Lactobacillus Acidophilus 1 tab 11/08/19 19:45 11/10/19 10:15 Bacid - PO 1 tab DAILY JESÚS Administration Levothyroxine Sodium 50 mcg 11/09/19 07:00 11/11/19 06:16 Synthroid - PO 50 mcg ACBK J[facility] Administration Metformin HCl 1,000 mg 11/09/19 07:00 11/11/19 06:16 Glucophage - PO 1,000 mg BIDI JESÚS Administration Metoprolol Tartrate 25 mg 11/08/19 22:00 11/10/19 21:35 Lopressor - PO 25 mg BID JESÚS Administration Multi-Ingredient Ointment 1 applic 11/09/19 12:44 11/10/19 10:16 Zinc Oxide TP 1 applic DAILY JESÚS Administration Polyethylene Glycol 17 gm 11/10/19 10:00 11/10/19 10:17 Miralax (For Daily Use) - PO Not Given DAILY [facility] Home Medications Medication Instructions Recorded [place]-3 Fatty Acids [[place]-3] 1,000 mg PO DAILY 04/06/14 Levothyroxine Sodium 50 mcg PO DAILY tablet 09/28/16 Fenofibrate,Micronized 135 mg PO DAILY 01/03/19 [Fenofibrate] Isosorbide Mononitrate [Isosorbide 30 mg PO DAILY 01/03/19 Mononitrate ER] Metoprolol Tartrate 25 mg PO BID 01/03/19 Cholecalciferol (Vitamin D3) 2,000 unit PO DAILY 06/11/19 [Vitamin D3] Metformin HCl [Glucophage] 1,000 mg PO BID 06/11/19 Pioglitazone HCl [Actos] 15 mg PO DAILY 06/11/19 Cyanocobalamin [Vitamin B12 -] 1,000 mcg PO DAILY 30 Days #30 06/13/19 tablet Ferrous Sulfate 325 mg PO DAILY 30 Days #30 tablet 06/13/19 Gabapentin 300 mg PO HS 11/08/19 Nitrofurantoin Macrocrystal 50 mg PO DAILY 11/08/19 [Macrodantin -] Atorvastatin Ca [Lipitor] 20 mg PO HS 11/09/19 Insulin Aspart [Novolog] See Protocol SQ TID 11/10/19 CXR: no acute pathology , sclerotic knot, right shoulder replacement CT of Lspine: no fx Ct of the head: neg 11/10/2019; Left foot xray: no blastic or lytic changes , no signs of gross fx 11/10/2019: right foot xray: loss of bone density , degenerative changes with bunion formation. no acute process. 11/09/2019:EKG: sinus tachy.rate of 104 Microbiology 11/08/19 14:35 Blood - Peripheral Venous Blood Culture - Preliminary NO GROWTH OBTAINED AFTER 48 HOURS, INCUBATION TO CONTINUE FOR 3 DAYS. 11/08/19 14:35 Blood - Peripheral Venous Blood Culture - Preliminary NO GROWTH OBTAINED AFTER 48 HOURS, INCUBATION TO CONTINUE FOR 3 DAYS. ASSESSMENT AND PLAN: Patient is a 74yof with pmhx HTN, HLD, CAD , hypothyroid, T2DM, venous insufficiency, uterine CA (s/p hysterectomy) & recurrent UTIs,presented to the ED s/p fall. #S/p fall ; fall precaution #Acute Rhabdo. with CPk level of 4K-->2k-->1077 today trending down , continue IVF for now, continue to hold Statin for now. #Sepsis: due to UTI, on IV Rocephin continue #Recurrent UTIs on IV Rocephin 1gm IV daily continue , blood cx is negative #Microcytic anemia: on iron supplemt , b12 AND FA WITHIN NL LIMIT #Chronic venous stasis with R. foot: healed plantar heel ulcer, and Left heel 1 cm x 1 cm x 0.2 cm ulcer a nice healthy granular tissue Xray of the foot as above , PODIATRY IS ON THE case #T2DM Uncontrolled with hemoglobin A1c is 9.5 , will add 10u levemir for am. continue metformin, diabetic diet, nutrition consult #Acute hypomag: repleted , trend DVt Px: lovenox follow mag follow EKG follow CPK Visit type - Emergency Visit Emergency Visit: Yes ED Registration Date: 11/08/19 Care time: The patient presented to the Emergency Department on the above date and was hospitalized for further evaluation of their emergent condition. - New Patient This patient is new to me today: No - Critical Care Critical Care patient: No - Discharge Referral Referred to [facility] Med [facility] No - Medication Review Med list reviewed for High Risk Meds patients 65 and older: Yes
[2019-11-11] MEDS: MINERAL OIL/PET HY-PHL TOPICAL OINTMENT 454 GM JAR TP SCH (09:21)
[2019-11-11] MEDS: ACETAMINOPHEN 325 MG TABLET (FP) PO PRN ×2 (09:24→21:25)
[2019-11-11] MEDS ORDERED: MAGNESIUM SULFATE IN WATER 2 GM/50 ML IVPB IVPB ONE (10:00)
[2019-11-11] MEDS ORDERED: INSULIN (NOVOLOG) ASPART 100 UNITS/ML 10ML VIAL ONE ×4 (11:10→17:26)
[2019-11-11] MEDS: INSULIN (LEVEMIR) 100 UNITS/ML UNITS SQ SCH (11:18)
[2019-11-11] MEDS ORDERED: INSULIN (LEVEMIR) 100 UNITS/ML UNITS SQ ONE (11:32)
[2019-11-11] MEDS: COLLAGENASE CLOSTRIDIUM HIST. 30 GRAMS TUBE TP SCH (21:25)
[2019-11-11] MEDS: ASCORBIC ACID 500 MG TABLET (FP) PO SCH (21:25)
[2019-11-11] MEDS: ZINC SULFATE 220 MG CAPSULE (FP) PO SCH (21:25)
[2019-11-11] MEDS: GABAPENTIN 300 MG CAPSULE PO SCH (21:29)
[2019-11-12] MEDS: ACETAMINOPHEN 325 MG TABLET (FP) PO PRN (05:44)
[2019-11-12] MEDS: metFORMIN HCL 500 MG TABLET (FP) PO SCH ×2 (06:31→17:30)
[2019-11-12] MEDS: INSULIN (LEVEMIR) 100 UNITS/ML UNITS SQ SCH (06:31)
[2019-11-12] MEDS: INSULIN SLIDING SCALE (NOVOLOG) 1 VIAL SQ SCH ×3 (06:31→17:30)
[2019-11-12] MEDS: LEVOTHYROXINE NA 50 MCG TABLET (FP) PO SCH (06:46)
[2019-11-12 08:57] LABS: ALBUMIN 2.5 g/dl (3.4-5.0); BILIRUBIN,TOTAL 0.3 mg/dL (0.2-1); BLOOD UREA NITROGEN 15.9 mg/dL (7-18); CALCIUM 8.8 mg/dL (8.5-10.1); CREATININE 1.1 mg/dL (0.55-1.3); MAGNESIUM 1.8 mg/dL (1.8-2.4); POTASSIUM 4.6 mmol/L (3.5-5.1); TOT PROT 6.4 g/dl (6.4-8.2)
[2019-11-12] MEDS ORDERED: cefTRIAXone SODIUM 1 GM VIAL ONE (09:03)
[2019-11-12] MEDS ORDERED: DEXTROSE 5%-WATER - 50 ML IVPB ONE (09:03)
[2019-11-12] MEDS ORDERED: PT OWN MED DRAWER 7, Y5N ONE (09:03)
[2019-11-12] MEDS: ZINC SULFATE 220 MG CAPSULE (FP) PO SCH (09:07)
[2019-11-12] MEDS: LACTOBACILLUS ACIDOPHILUS 1 TABLET PO SCH (09:07)
[2019-11-12] MEDS: FENOFIBRIC ACID 135 MG CAP PO SCH (09:07)
[2019-11-12] MEDS: ENOXAPARIN NA (PORCINE) 40 MG/0.4 ML DISP.SYRIN SQ SCH (09:08)
[2019-11-12] MEDS: CEFTRIAXONE 1 GM in DEXTROSE 5%-WATER - 50 ML IVPB SCH (09:08)
[2019-11-12] MEDS: FERROUS SO4 325 MG TABLET (FP) PO SCH (09:08)
[2019-11-12] MEDS: METOPROLOL TARTRATE 25 MG TABLET (FP) PO SCH ×2 (09:08→22:59)
[2019-11-12] MEDS: POLYETHYLENE GLYCOL 3350 119 GM BTL PO SCH (09:08)
[2019-11-12] MEDS: ASCORBIC ACID 500 MG TABLET (FP) PO SCH (09:08)
[2019-11-12] MEDS: ISOSORBIDE MONONITRATE 30 MG TAB.SR.24H (FP) PO SCH (09:08)
[2019-11-12] MEDS: MINERAL OIL/PET HY-PHL TOPICAL OINTMENT 454 GM JAR TP SCH (09:09)
[2019-11-12] MEDS: ZINC OXIDE 20% TOPICAL OINTMENT 30 GM TUBE TP SCH (09:09)
[2019-11-12] MEDS: COLLAGENASE CLOSTRIDIUM HIST. 30 GRAMS TUBE TP SCH (09:09)
--- NOTE | 2019-11-12 16:58 | PN ---
Physical Exam: SUBJECTIVE: Patient seen and examined. Reports legs feel better. Has been able to do PT with walker. OBJECTIVE: Vital Signs Period Temp Pulse Resp BP Sys/Jacobs Pulse Ox Last 24 Hr 98.2 F-98.8 F 84-101 20-20 116-148/68-74 92-96 GENERAL: A&Ox3, not in distress. HEAD: Atraumatic. EYES: PERRL, EOM intact. ENT: Ears normal, nares patent, moist mucous membranes. NECK: Trachea midline, full range of motion. LUNGS: CTA bilaterally. HEART: RRR, no murmur. ABDOMEN: Soft, nontender, nondistended, normoactive bowel sounds. EXTREMITIES: Warm, well-perfused, plantar surface of left heel small ulcer with granulated tissue, right leg bandaged. NEUROLOGICAL: Cranial nerves II through XII grossly intact. Normal speech. PSYCH: Normal mood, normal affect. SKIN: Warm, dry, normal turgor. Laboratory Results - last 24 hr 11/11/19 11/11/19 11/12/19 17:05 21:41 05:36 Sodium Potassium Chloride Carbon Dioxide Anion Gap BUN Creatinine Est GFR (CKD-EPI)AfAm Est GFR (CKD-EPI)NonAf POC Glucometer 270 244 222 Random Glucose Calcium Magnesium Total Bilirubin AST ALT Alkaline Phosphatase Creatine Kinase Creatine Kinase Index CK-MB (CK-2) Total Protein Albumin 11/12/19 11/12/19 07:10 11:53 Sodium 137 Potassium 4.6 Chloride 105 Carbon Dioxide 24 Anion Gap 9 BUN 15.9 Creatinine 1.1 Est GFR (CKD-EPI)AfAm 56.48 Est GFR (CKD-EPI)NonAf 48.73 POC Glucometer 212 Random Glucose 201 H Calcium 8.8 Magnesium 1.8 Total Bilirubin 0.3 AST 39 H ALT 19 Alkaline Phosphatase 61 Creatine Kinase 560 H Creatine Kinase Index 0.1 CK-MB (CK-2) 1.0 Total Protein 6.4 Albumin 2.5 L Active Medications Generic Name Dose Route Start Last Admin Trade Name Freq PRN Reason Stop Dose Admin Acetaminophen 650 mg 11/08/19 19:37 11/12/19 05:44 Tylenol - PO 650 mg Q6H PRN Administration Fever Or Pain Ascorbic Acid 500 mg 11/11/19 18:45 11/12/19 09:08 Vitamin C - PO 500 mg DAILY JESÚS Administration Atorvastatin Calcium 20 mg 11/08/19 22:00 11/09/19 21:02 Lipitor - PO 20 mg HS JESÚS Administration Collagenase 1 applic 11/11/19 16:45 11/12/19 09:09 Santyl - TP 1 applic DAILY JESÚS Administration Protocol Emollient Ointment 1 applic 11/09/19 12:45 11/12/19 09:09 Aquaphor - TP 1 applic DAILY JESÚS Administration Enoxaparin Sodium 40 mg 11/09/19 10:00 11/12/19 09:08 Lovenox - SQ 40 mg DAILY JESÚS Administration Fenofibric Acid 135 mg 11/09/19 10:00 11/12/19 09:07 Trilipix - PO 135 mg DAILY JESÚS Administration Ferrous Sulfate 325 mg 11/09/19 10:00 11/12/19 09:08 Feosol - PO 325 mg DAILY JESÚS Administration Gabapentin 300 mg 11/08/19 22:00 11/11/19 21:29 Neurontin - PO 300 mg HS JESÚS Administration Ceftriaxone Sodium 1 gm/ 50 mls @ 100 mls/hr 11/09/19 10:00 11/12/19 09:08 Dextrose IVPB 100 mls/hr DAILY JESÚS Administration Insulin Aspart 1 vial 11/10/19 06:22 11/12/19 11:53 Novolog Vial Sliding Scale - SQ 6 units TIDAC JESÚS Administration Protocol Insulin Detemir 10 units 11/11/19 10:00 11/12/19 06:31 Levemir Vial SQ 10 units AM JESÚS Administration Isosorbide Mononitrate 30 mg 11/09/19 10:00 11/12/19 09:08 Imdur - PO 30 mg DAILY JESÚS Administration Lactobacillus Acidophilus 1 tab 11/08/19 19:45 11/12/19 09:07 Bacid - PO 1 tab DAILY JESÚS Administration Levothyroxine Sodium 50 mcg 11/09/19 07:00 11/12/19 06:46 Synthroid - PO 50 mcg ACBK JESÚS Administration Metformin HCl 1,000 mg 11/09/19 07:00 11/12/19 06:31 Glucophage - PO 1,000 mg BIDI JESÚS Administration Metoprolol Tartrate 25 mg 11/08/19 22:00 11/12/19 09:08 Lopressor - PO 25 mg BID JESÚS Administration Multi-Ingredient Ointment 1 applic 11/09/19 12:44 11/12/19 09:09 Zinc Oxide TP 1 applic DAILY JESÚS Administration Polyethylene Glycol 17 gm 11/10/19 10:00 11/12/19 09:08 Miralax (For Daily Use) - PO Not Given DAILY JESÚS Zinc Sulfate 220 mg 11/11/19 18:45 11/12/19 09:07 Orazinc - PO 220 mg DAILY JESÚS Administration ASSESSMENT/PLAN: Patient is 74 yo female pmhx HTN, HLD, CAD (w/blockages?), hypothyroidism, DM2, venous insufficiency, uterine CA (s/p hysterectomy) & recurrent UTI (last one 1 week ago) who presented to the ED s/p mechanical fall. Pt is admitted for sepsis. Sepsis: 2/2 UTI - UA showed UTI, urine cx error occurred and therefore did not result - ceftriaxone - chronic UTI on nitrofuranation at home - Tylenol for fevers/pain - bacid for chronic UTI Rhabdo likely 2/2 prolonged stay on floor s/p mechanical fall - CPK trending down - monitor kidney function - fall precautions in place IDDM2 - metformin 1000 BID - hold pioglitazone - levemir 10u AM - BGM ACHS - SSI Chronic Venous Insufficiency w/neuropathic pain - BL ulcers on plantar aspect of heels, worse on Left - consulted podiatry (Dr. Ng) would recc heel offloading shoe if is it available to obtain while admitted; if not can f/u in the wound care center no acute podiatry intervention at this time wbat to the right; wb to the forefoot on left - aquaphor to BL legs w/ marvin bandages - continue gabapentin 300 mg HS Anemia: microcytic iron def anemia/ most likely chronic - iron studies: decreased iron, normal TIBC, normal ferritin - monitor Hbg/Hct - continue daily iron supplements HTN - continue metoprolol 25 mg BID - continue isosorbide mononitrate ER 30 mg daily HLD - Lipitor stopped - fenofibrate 135 mg daily Hypothyroid - continue synthroid 50 mcg daily DVT Prophylaxis - Lovenox 40 sq FEN - PO fluids - replenish electrolytes as needed - DM controlled diet Dipso: med/surg FULL CODE Visit type - Emergency Visit Emergency Visit: Yes ED Registration Date: 11/08/19 Care time: The patient presented to the Emergency Department on the above date and was hospitalized for further evaluation of their emergent condition. - New Patient This patient is new to me today: Yes Date on this admission: 11/12/19 - Critical Care Critical Care patient: No - Medication Review Med list reviewed for High Risk Meds patients 65 and older: Yes ATTENDING PHYSICIAN STATEMENT I saw and evaluated the patient. I reviewed the resident's note and discussed the case with the resident. I agree with the resident's findings and plan as documented. SUBJECTIVE: OBJECTIVE: ASSESSMENT AND PLAN:
--- NOTE | 2019-11-12 17:20 | PN ---
Teaching Attending Note Name of Resident: Rajani Farr ATTENDING PHYSICIAN STATEMENT I saw and evaluated the patient. I reviewed the resident's note and discussed the case with the resident. I agree with the resident's findings and plan as documented. SUBJECTIVE: Patient is comfortable m, no acute distress OBJECTIVE: Initial Vital Signs Temp Pulse Resp BP Pulse Ox 100.2 F H 117 H 22 H 124/62 94 L 11/08/19 10:47 11/08/19 10:47 11/08/19 10:47 11/08/19 10:47 11/08/19 10:47 Vital Signs Temperature 98.2 F 11/12/19 14:00 Pulse Rate 84 11/12/19 14:00 Respiratory Rate 20 11/12/19 14:00 Blood Pressure 133/70 11/12/19 14:00 O2 Sat by Pulse Oximetry (%) 96 11/12/19 14:00 PE:per resident's note CBCD WBC 6.5 K/mm3 (4.0-10.0) 11/11/19 06:30 RBC 3.96 M/mm3 (3.60-5.2) 11/11/19 06:30 Hgb 9.2 GM/dL (10.7-15.3) L 11/11/19 06:30 Hct 29.0 % (32.4-45.2) L 11/11/19 06:30 MCV 73.2 fl (80-96) L 11/11/19 06:30 MCHC 31.8 g/dl (32.0-36.0) L 11/11/19 06:30 RDW 18.7 % (11.6-15.6) H 11/11/19 06:30 Plt Count 249 K/MM3 (134-434) 11/11/19 06:30 MPV 7.8 fl (7.5-11.1) 11/11/19 06:30 CMP Sodium 137 mmol/L (136-145) 11/12/19 07:10 Potassium 4.6 mmol/L (3.5-5.1) 11/12/19 07:10 Chloride 105 mmol/L (98-107) 11/12/19 07:10 Carbon Dioxide 24 mmol/L (21-32) 11/12/19 07:10 Anion Gap 9 MMOL/L (8-16) 11/12/19 07:10 BUN 15.9 mg/dL (7-18) 11/12/19 07:10 Creatinine 1.1 mg/dL (0.55-1.3) 11/12/19 07:10 Random Glucose 201 mg/dL (74-106) H 11/12/19 07:10 Calcium 8.8 mg/dL (8.5-10.1) 11/12/19 07:10 Total Bilirubin 0.3 mg/dL (0.2-1) 11/12/19 07:10 AST 39 U/L (15-37) H 11/12/19 07:10 ALT 19 U/L (13-61) 11/12/19 07:10 Alkaline Phosphatase 61 U/L (45-117) 11/12/19 07:10 Total Protein 6.4 g/dl (6.4-8.2) 11/12/19 07:10 Albumin 2.5 g/dl (3.4-5.0) L 11/12/19 07:10 CARDIAC ENZYMES Creatine Kinase 560 U/L (26-192) H 11/12/19 07:10 Troponin I 0.03 ng/ml (0.00-0.05) 11/09/19 02:35 Current Medications Generic Name Dose Route Start Last Admin Trade Name Smooth PRN Reason Stop Dose Admin Acetaminophen 650 mg 11/08/19 19:37 11/12/19 05:44 Tylenol - PO 650 mg Q6H PRN Administration Fever Or Pain Ascorbic Acid 500 mg 11/11/19 18:45 11/12/19 09:08 Vitamin C - PO 500 mg DAILY JESÚS Administration Atorvastatin Calcium 20 mg 11/08/19 22:00 11/09/19 21:02 Lipitor - PO 20 mg HS JESÚS Administration Collagenase 1 applic 11/11/19 16:45 11/12/19 09:09 Santyl - TP 1 applic DAILY JES[facility]S Administration Protocol Emollient Ointment 1 applic 11/09/19 12:45 11/12/19 09:09 Aquaphor - TP 1 applic DAILY JES[facility]S Administration Enoxaparin Sodium 40 mg 11/09/19 10:00 11/12/19 09:08 Lovenox - SQ 40 mg DAILY JES[facility]S Administration Fenofibric Acid 135 mg 11/09/19 10:00 08/16/20 09:07 Trilipix - PO 135 mg DAILY JES[facility]S Administration Ferrous Sulfate 325 mg 11/09/19 10:00 11/12/19 09:08 Feosol - PO 325 mg DAILY JES[facility]S Administration Gabapentin 300 mg 11/08/19 22:00 11/11/19 21:29 Neurontin - PO 300 mg HS JESÚS Administration Ceftriaxone Sodium 1 gm/ 50 mls @ 100 mls/hr 11/09/19 10:00 11/12/19 09:08 Dextrose IVPB 100 mls/hr DAILY JES[facility]S Administration Insulin Aspart 1 vial 11/10/19 06:22 11/12/19 11:53 Novolog Vial Sliding Scale - SQ 6 units TIDAC J[facility] Administration Protocol Insulin Detemir 10 units 11/11/19 10:00 11/12/19 06:31 Levemir Vial SQ 10 units AM JES[facility]S Administration Isosorbide Mononitrate 30 mg 11/09/19 10:00 11/12/19 09:08 Imdur - PO 30 mg DAILY JES[facility]S Administration Lactobacillus Acidophilus 1 tab 11/08/19 19:45 11/12/19 09:07 Bacid - PO 1 tab DAILY J[facility] Administration Levothyroxine Sodium 50 mcg 11/09/19 07:00 11/12/19 06:46 Synthroid - PO 50 mcg ACBK [facility] Administration Metformin HCl 1,000 mg 11/09/19 07:00 11/12/19 06:31 Glucophage - PO 1,000 mg BIDI J[facility] Administration Metoprolol Tartrate 25 mg 11/08/19 22:00 11/12/19 09:08 Lopressor - PO 25 mg BID JES[facility]S Administration Multi-Ingredient Ointment 1 applic 11/09/19 12:44 11/12/19 09:09 Zinc Oxide TP 1 applic DAILY JES[facility]S Administration Polyethylene Glycol 17 gm 11/10/19 10:00 11/12/19 09:08 Miralax (For Daily Use) - PO Not Given DAILY JES[facility]S Zinc Sulfate 220 mg 11/11/19 18:45 11/12/19 09:07 Orazinc - PO 220 mg DAILY JES[facility]S Administration Home Medications Medication Instructions Recorded [place]-3 Fatty Acids [[place]-3] 1,000 mg PO DAILY 04/06/14 Levothyroxine Sodium 50 mcg PO DAILY tablet 09/28/16 Fenofibrate,Micronized 135 mg PO DAILY 01/03/19 [Fenofibrate] Isosorbide Mononitrate [Isosorbide 30 mg PO DAILY 01/03/19 Mononitrate ER] Metoprolol Tartrate 25 mg PO BID 01/03/19 Cholecalciferol (Vitamin D3) 2,000 unit PO DAILY 06/11/19 [Vitamin D3] Metformin HCl [Glucophage] 1,000 mg PO BID 06/11/19 Pioglitazone HCl [Actos] 15 mg PO DAILY 06/11/19 Cyanocobalamin [Vitamin B12 -] 1,000 mcg PO DAILY 30 Days #30 06/13/19 tablet Ferrous Sulfate 325 mg PO DAILY 30 Days #30 tablet 06/13/19 Gabapentin 300 mg PO HS 11/08/19 Nitrofurantoin Macrocrystal 50 mg PO DAILY 11/08/19 [Macrodantin -] Atorvastatin Ca [Lipitor] 20 mg PO HS 11/09/19 Insulin Aspart [Novolog] See Protocol SQ TID 11/10/19 Microbiology 11/08/19 14:35 Blood - Peripheral Venous Blood Culture - Preliminary NO GROWTH OBTAINED AFTER 96 HOURS, INCUBATION TO CONTINUE FOR 1 DAYS. 11/08/19 14:35 Blood - Peripheral Venous Blood Culture - Preliminary NO GROWTH OBTAINED AFTER 96 HOURS, INCUBATION TO CONTINUE FOR 1 DAYS. ASSESSMENT AND PLAN: Patient is a 74yof with pmhx HTN, HLD, CAD , hypothyroid, T2DM, venous insufficiency, uterine CA (s/p hysterectomy) & recurrent UTIs,presented to the ED s/p fall. #S/p fall ; fall precaution #Acute Rhabdo. with CPk level of 4K-->2k-->1077-->506 today trending down , continue IVF x more liter , continue to hold Statin for now. #Sepsis: due to UTI, on IV Rocephin continue #Recurrent UTIs on IV Rocephin 1gm IV daily continue , blood cx is negative #Microcytic anemia: on iron supplemt , b12 AND FA WITHIN NL LIMIT #Chronic venous stasis with R. foot: healed plantar heel ulcer, and Left heel 1 cm x 1 cm x 0.2 cm ulcer a nice healthy granular tissue Xray of the foot as above , PODIATRY IS ON THE case #T2DM Uncontrolled with hemoglobin A1c is 9.5 , 10u levemir for am. continue metformin, diabetic diet, nutrition consult #Acute hypomag: repleted . DVt Px: lovenox dc planning for am
[2019-11-12] MEDS ORDERED: SODIUM CHLORIDE 1,000 ML IV SCH (17:30)
--- NOTE | 2019-11-12 17:51 | EKG ---
Test Reason : Blood Pressure : / mmHG Vent. Rate : 079 BPM Atrial Rate : 079 BPM P-R Int : 148 ms QRS Dur : 080 ms QT Int : 384 ms P-R-T Axes : -01 014 003 degrees QTc Int : 440 ms NORMAL SINUS RHYTHM WITH SINUS ARRHYTHMIA NORMAL ECG WHEN COMPARED WITH ECG OF 08-NOV-2019 17:38, T WAVE INVERSION NOW EVIDENT IN INFERIOR LEADS Confirmed by MD MARGARITA, BHAKTI ([id number]) on 11/12/2019 5:51:10 PM Referred By: Jerardo LEBRON Confirmed By:BHAKTI AVILA MD
[2019-11-12] MEDS: GABAPENTIN 300 MG CAPSULE PO SCH (22:59)
[2019-11-13] MEDS: INSULIN SLIDING SCALE (NOVOLOG) 1 VIAL SQ SCH (06:30)
[2019-11-13] MEDS: INSULIN (LEVEMIR) 100 UNITS/ML UNITS SQ SCH (06:31)
[2019-11-13] MEDS: LEVOTHYROXINE NA 50 MCG TABLET (FP) PO SCH (06:32)
[2019-11-13] MEDS: metFORMIN HCL 500 MG TABLET (FP) PO SCH (06:32)
[2019-11-13] MEDS ORDERED: INSULIN (NOVOLOG) ASPART 100 UNITS/ML 10ML VIAL ONE (07:35)
[2019-11-13] MEDS ORDERED: INSULIN (LEVEMIR) 100 UNITS/ML UNITS SQ ONE (07:36)
[2019-11-13 08:31] LABS: BASO % 0.4 % (0-2.0); EOS % 2.4 % (0-4.5); HEMATOCRIT 31.5 % (32.4-45.2); HEMOGLOBIN 10.1 GM/dL (10.7-15.3); LYMPH % 34.8 % (8-40); MCH 23.1 pg (25.7-33.7); MCHC 31.9 g/dl (32.0-36.0); MEAN CELL VOLUME 72.5 fl (80-96); MEAN PLT VOLUME 7.2 fl (7.5-11.1); MONO % 6.7 % (3.8-10.2); NEUT % 55.7 % (42.8-82.8); PLATELET COUNT 271 K/MM3 (134-434); RBC 4.35 M/mm3 (3.60-5.2); RDW 18.7 % (11.6-15.6); WHITE BLOOD COUNT 6.7 K/mm3 (4.0-10.0)
[2019-11-13 08:48] LABS: ALBUMIN 2.7 g/dl (3.4-5.0); ALK PHOS 64 U/L (45-117); BILIRUBIN,TOTAL 0.2 mg/dL (0.2-1); BLOOD UREA NITROGEN 15.8 mg/dL (7-18); CHLORIDE 104 mmol/L (98-107); GLUCOSE,RANDOM 192 mg/dL (74-106); POTASSIUM 4.7 mmol/L (3.5-5.1); SGOT/AST 29 U/L (15-37); SGPT/ALT 19 U/L (13-61); SODIUM 138 mmol/L (136-145); TOT PROT 6.8 g/dl (6.4-8.2)
[2019-11-13 08:49] LABS: ANION GAP 8 MMOL/L (8-16); CALCIUM 8.9 mg/dL (8.5-10.1); CO2 26 mmol/L (21-32); MAGNESIUM 1.7 mg/dL (1.8-2.4)
[2019-11-13] MEDS ORDERED: MAGNESIUM OXIDE 400 MG TABLET (FP) PO ONE (09:15)
[2019-11-13] MEDS ORDERED: INSULIN SLIDING SCALE (NOVOLOG) 1 VIAL SQ SCH (09:15)
[2019-11-13] MEDS ORDERED: DEXTROSE 5%-WATER - 50 ML IVPB ONE (10:01)
[2019-11-13] MEDS ORDERED: cefTRIAXone SODIUM 1 GM VIAL ONE (10:01)
[2019-11-13] MEDS: ISOSORBIDE MONONITRATE 30 MG TAB.SR.24H (FP) PO SCH (10:05)
[2019-11-13] MEDS: ZINC SULFATE 220 MG CAPSULE (FP) PO SCH (10:05)
[2019-11-13] MEDS: METOPROLOL TARTRATE 25 MG TABLET (FP) PO SCH (10:05)
[2019-11-13] MEDS: ASCORBIC ACID 500 MG TABLET (FP) PO SCH (10:07)
[2019-11-13] MEDS: FERROUS SO4 325 MG TABLET (FP) PO SCH (10:07)
[2019-11-13] MEDS: ACETAMINOPHEN 325 MG TABLET (FP) PO PRN (10:07)
[2019-11-13] MEDS: LACTOBACILLUS ACIDOPHILUS 1 TABLET PO SCH (10:07)
[2019-11-13] MEDS: FENOFIBRIC ACID 135 MG CAP PO SCH (10:07)
[2019-11-13] MEDS: ENOXAPARIN NA (PORCINE) 40 MG/0.4 ML DISP.SYRIN SQ SCH (10:08)
[2019-11-13] MEDS: POLYETHYLENE GLYCOL 3350 119 GM BTL PO SCH (10:08)
[2019-11-13] MEDS: CEFTRIAXONE 1 GM in DEXTROSE 5%-WATER - 50 ML IVPB SCH (10:52)
[2019-11-13] MEDS ORDERED: CEFUROXIME AXETIL 500 MG TABLET PO SCH (12:00)
[2019-11-13] MEDS: MINERAL OIL/PET HY-PHL TOPICAL OINTMENT 454 GM JAR TP SCH (12:15)
[2019-11-13] MEDS: COLLAGENASE CLOSTRIDIUM HIST. 30 GRAMS TUBE TP SCH (12:16)
[2019-11-13] MEDS: ZINC OXIDE 20% TOPICAL OINTMENT 30 GM TUBE TP SCH (12:16)
[2019-11-13] MEDS ORDERED: PT OWN MED DRAWER 7, Y5N ONE (13:45)
--- NOTE | 2019-11-13 14:16 | PN ---
Teaching Attending Note Name of Resident: Ruchi Ruiz ATTENDING PHYSICIAN STATEMENT I saw and evaluated the patient. I reviewed the resident's note and discussed the case with the resident. I agree with the resident's findings and plan as documented. SUBJECTIVE: NAD< feels better , going to rehab since feels weak. OBJECTIVE: Vital Signs Temperature 99.0 F 11/13/19 10:00 Pulse Rate 94 H 11/13/19 10:00 Respiratory Rate 18 11/13/19 10:00 Blood Pressure 148/76 11/13/19 10:00 O2 Sat by Pulse Oximetry (%) 96 11/13/19 10:00 PE: per resident's note CBCD WBC 6.7 K/mm3 (4.0-10.0) 11/13/19 07:15 RBC 4.35 M/mm3 (3.60-5.2) 11/13/19 07:15 Hgb 10.1 GM/dL (10.7-15.3) L 11/13/19 07:15 Hct 31.5 % (32.4-45.2) L 11/13/19 07:15 MCV 72.5 fl (80-96) L 11/13/19 07:15 MCHC 31.9 g/dl (32.0-36.0) L 11/13/19 07:15 RDW 18.7 % (11.6-15.6) H 11/13/19 07:15 Plt Count 271 K/MM3 (134-434) 11/13/19 07:15 MPV 7.2 fl (7.5-11.1) L 11/13/19 07:15 CMP Sodium 138 mmol/L (136-145) 11/13/19 07:15 Potassium 4.7 mmol/L (3.5-5.1) 11/13/19 07:15 Chloride 104 mmol/L (98-107) 11/13/19 07:15 Carbon Dioxide 26 mmol/L (21-32) 11/13/19 07:15 Anion Gap 8 MMOL/L (8-16) 11/13/19 07:15 BUN 15.8 mg/dL (7-18) 11/13/19 07:15 Creatinine 1.0 mg/dL (0.55-1.3) 11/13/19 07:15 Random Glucose 192 mg/dL (74-106) H 11/13/19 07:15 Calcium 8.9 mg/dL (8.5-10.1) 11/13/19 07:15 Total Bilirubin 0.2 mg/dL (0.2-1) 11/13/19 07:15 AST 29 U/L (15-37) 11/13/19 07:15 ALT 19 U/L (13-61) 11/13/19 07:15 Alkaline Phosphatase 64 U/L (45-117) 11/13/19 07:15 Total Protein 6.8 g/dl (6.4-8.2) 11/13/19 07:15 Albumin 2.7 g/dl (3.4-5.0) L 11/13/19 07:15 CARDIAC ENZYMES Creatine Kinase 288 U/L (26-192) H 11/13/19 07:15 Troponin I 0.03 ng/ml (0.00-0.05) 11/09/19 02:35 Current Medications Generic Name Dose Route Start Last Admin Trade Name Fre PRN Reason Stop Dose Admin Acetaminophen 650 mg 11/08/19 19:37 11/13/19 10:07 Tylenol - PO 650 mg Q6H PRN Administration Fever Or Pain Ascorbic Acid 500 mg 11/11/19 18:45 11/13/19 10:07 Vitamin C - PO 500 mg DAILY JESÚS Administration Atorvastatin Calcium 20 mg 11/08/19 22:00 11/09/19 21:02 Lipitor - PO 20 mg HS JESÚS Administration Cefuroxime Axetil 500 mg 11/13/19 12:00 11/13/19 13:53 Ceftin - PO 11/15/19 00:00 500 mg BID JESÚS Administration Collagenase 1 applic 11/11/19 16:45 11/13/19 12:16 Santyl - TP 1 applic DAILY JESÚS Administration Protocol Emollient Ointment 1 applic 11/09/19 12:45 11/13/19 12:15 Aquaphor - TP 1 applic DAILY JESÚS Administration Enoxaparin Sodium 40 mg 11/09/19 10:00 11/13/19 10:08 Lovenox - SQ 40 mg DAILY JESÚS Administration Fenofibric Acid 135 mg 11/09/19 10:00 11/13/19 10:07 Trilipix - PO 135 mg DAILY JESÚS Administration Ferrous Sulfate 325 mg 11/09/19 10:00 11/13/19 10:07 Feosol - PO 325 mg DAILY JESÚS Administration Gabapentin 300 mg 11/08/19 22:00 11/12/19 22:59 Neurontin - PO 300 mg HS JESÚS Administration Insulin Aspart 1 vial 11/13/19 09:15 11/13/19 12:14 Novolog Vial Sliding Scale - SQ 5 units TIDAC [facility] Administration Protocol Insulin Detemir 10 units 11/11/19 10:00 11/13/19 06:31 Levemir Vial SQ 10 units AM JESÚS Administration Isosorbide Mononitrate 30 mg 11/09/19 10:00 11/13/19 10:05 Imdur - PO 30 mg DAILY [facility] Administration Lactobacillus Acidophilus 1 tab 11/08/19 19:45 11/13/19 10:07 Bacid - PO 1 tab DAILY [facility] Administration Levothyroxine Sodium 50 mcg 11/09/19 07:00 11/13/19 06:32 Synthroid - PO 50 mcg ACBK [facility] Administration Metformin HCl 1,000 mg 11/09/19 07:00 11/13/19 06:32 Glucophage - PO 1,000 mg BIDI [facility] Administration Metoprolol Tartrate 25 mg 11/08/19 22:00 11/13/19 10:05 Lopressor - PO 25 mg BID [facility] Administration Multi-Ingredient Ointment 1 applic 11/09/19 12:44 11/13/19 12:16 Zinc Oxide TP 1 applic DAILY [facility] Administration Polyethylene Glycol 17 gm 11/10/19 10:00 11/13/19 10:08 Miralax (For Daily Use) - PO Not Given DAILY [facility] Zinc Sulfate 220 mg 11/11/19 18:45 11/13/19 10:05 Orazinc - PO 220 mg DAILY JES[facility]S Administration Home Medications Medication Instructions Recorded [place]-3 Fatty Acids [[place]-3] 1,000 mg PO DAILY 04/06/14 Levothyroxine Sodium 50 mcg PO DAILY tablet 09/28/16 Fenofibrate,Micronized 135 mg PO DAILY 01/03/19 [Fenofibrate] Isosorbide Mononitrate [Isosorbide 30 mg PO DAILY 01/03/19 Mononitrate ER] Metoprolol Tartrate 25 mg PO BID 01/03/19 Cholecalciferol (Vitamin D3) 2,000 unit PO DAILY 06/11/19 [Vitamin D3] Metformin HCl [Glucophage] 1,000 mg PO BID 06/11/19 Pioglitazone HCl [Actos] 15 mg PO DAILY 06/11/19 Cyanocobalamin [Vitamin B12 -] 1,000 mcg PO DAILY 30 Days #30 06/13/19 tablet Ferrous Sulfate 325 mg PO DAILY 30 Days #30 tablet 06/13/19 Gabapentin 300 mg PO HS 11/08/19 Insulin Aspart [Novolog] See Protocol SQ TID 11/10/19 Acetaminophen [Tylenol .Regular 650 mg PO Q6H PRN tablet 11/13/19 Strength -] Ascorbic Acid [Vitamin C -] 500 mg PO DAILY tablet 11/13/19 Atorvastatin Ca [Lipitor] 20 mg PO HS tablet 11/13/19 Cefuroxime Axetil [Ceftin -] 500 mg PO BID 2 Days #3 tablet 11/13/19 Collagenase Clostridium Hist. 1 applic TP DAILY tube 11/13/19 [Santyl -] Insulin (Levemir) [Levemir Vial] 10 units SQ AM units 11/13/19 Insulin Pump Controller [Omnipod See Protocol SQ TID 11/13/19 Dash Pdm Kit] Insulin Sliding Scale [Novolog 1 vial SQ TIDAC units 11/13/19 Vial Sliding Scale -] Lactobacillus Acidophilus [Bacid -] 1 tab PO DAILY tab 11/13/19 Mineral Oil/Pet Hy-Phl [Aquaphor -] 1 applic TP DAILY jar 11/13/19 Polyethylene Glycol 3350 [Miralax 17 gm PO DAILY bottle 11/13/19 119 gm Btl -] Zinc Oxide 1 applic TP DAILY tube 11/13/19 Zinc Sulfate [Orazinc -] 220 mg PO DAILY capsule 11/13/19 Microbiology 11/08/19 14:35 Blood - Peripheral Venous Blood Culture - Preliminary NO GROWTH OBTAINED AFTER 96 HOURS, INCUBATION TO CONTINUE FOR 1 DAYS. 11/08/19 14:35 Blood - Peripheral Venous Blood Culture - Preliminary NO GROWTH OBTAINED AFTER 96 HOURS, INCUBATION TO CONTINUE FOR 1 DAYS. ASSESSMENT AND PLAN: Patient is a 74yof with pmhx HTN, HLD, CAD , hypothyroid, T2DM, venous insufficiency, uterine CA (s/p hysterectomy) & recurrent UTIs, presented to the ED s/p fall. #S/p fall ; fall precaution #Acute Rhabdo. with CPk level of 4K-->2k-->1077-->506--in 2oo's today can go to rehab #Sepsis: due to UTI, on IV Rocephin continue #Recurrent UTIs on IV Rocephin 1gm IV daily continue , blood cx is negative, will continue with 2 more days of ceftin po #Microcytic anemia: on iron supplemt , b12 AND FA WITHIN NL LIMIT #Chronic venous stasis with R. foot: healed plantar heel ulcer, and Left heel 1 cm x 1 cm x 0.2 cm ulcer a nice healthy granular tissue Xray of the foot as above , PODIATRY IS ON THE case #T2DM Uncontrolled with hemoglobin A1c is 9.5 , 10u levemir for am. continue metformin, diabetic diet, nutrition consult #Acute hypomag: repleted . DVt Px: isai lala planning , going to rehab to [place]
--- NOTE | 2019-11-13 14:18 | DS ---
Physical Exam: SUBJECTIVE: Patient seen and examined bedside. In no distress. Denies any dysuria or hematuria, SOB, chest pain, fever or chills. Reports feeling closer to her baseline. No events overnight. OBJECTIVE: Vital Signs 11/13/19 11/13/19 10:00 14:00 Temperature 99.0 F 98.2 F Pulse Rate 94 H 95 H Respiratory 18 18 Rate Blood Pressure 148/76 131/79 O2 Sat by Pulse 96 94 L Oximetry (%) PHYSICAL EXAM GENERAL: A&Ox3, in no distress. HEAD: Atraumatic. EYES: PERRL, EOM intact. ENT: moist mucous membranes. NECK: Trachea midline, full range of motion. LUNGS: CTA bilaterally. HEART: RRR, no murmur. ABDOMEN: Soft, nontender, nondistended, normoactive bowel sounds. EXTREMITIES: Warm, pulses intact, well-perfused. L leg slightly edematous, no pitting edema BL NEUROLOGICAL: Cranial nerves II through XII grossly intact. Normal speech. PSYCH: Normal mood, normal affect. SKIN: Warm, chronic venous stasis dermatitis has improved. Laboratory Tests 11/08/19 11/08/19 11/08/19 14:35 14:35 14:35 WBC 8.3 RBC 4.35 Hgb 10.2 L Hct 31.8 L MCV 73.1 L MCH 23.5 L D MCHC 32.2 RDW 19.0 H Plt Count 302 D MPV 7.7 Absolute Neuts (auto) 5.8 Neutrophils % 69.6 Lymphocytes % 21.9 Monocytes % 8.0 Eosinophils % 0.1 D Basophils % 0.4 Nucleated RBC % 0 PT with INR 13.20 H INR 1.12 H PTT (Actin FS) 28.3 VBG pH POC VBG pCO2 POC VBG pO2 VBG HCO3 VBG O2 Sat (Anthony) VBG Base Excess Sodium Potassium Chloride Carbon Dioxide Anion Gap BUN Creatinine Est GFR (CKD-EPI)AfAm Est GFR (CKD-EPI)NonAf POC Glucometer Random Glucose Hemoglobin A1c % Lactic Acid Calcium Phosphorus Magnesium Iron TIBC Iron Saturation Unsaturated IBC Ferritin Total Bilirubin AST ALT Alkaline Phosphatase Creatine Kinase Creatine Kinase Index CK-MB (CK-2) Troponin I 0.07 H Total Protein Albumin Vitamin B12 Serum Folate Urine Color Urine Appearance Urine pH Ur Specific [place] Urine Protein Urine Glucose (UA) Urine Ketones Urine Blood Urine Nitrite Urine Bilirubin Urine Urobilinogen Ur Leukocyte Esterase Urine WBC (Auto) Urine RBC (Auto) Urine Casts (Auto) U Epithel Cells (Auto) Urine Bacteria (Auto) COVID-19 (SANDRA) 11/08/19 11/08/19 11/08/19 14:35 14:35 14:35 WBC RBC Hgb Hct MCV MCH MCHC RDW Plt Count MPV Absolute Neuts (auto) Neutrophils % Lymphocytes % Monocytes % Eosinophils % Basophils % Nucleated RBC % PT with INR INR PTT (Actin FS) VBG pH 7.451 H POC VBG pCO2 32.0 L POC VBG pO2 52.1 H VBG HCO3 21.8 L VBG O2 Sat (Anthony) 88.9 H VBG Base Excess -1.5 Sodium 137 Potassium 4.8 Chloride 104 Carbon Dioxide 23 Anion Gap 11 BUN 28.9 H Creatinine 1.2 Est GFR (CKD-EPI)AfAm 50.84 Est GFR (CKD-EPI)NonAf 43.86 POC Glucometer Random Glucose 285 H Hemoglobin A1c % Lactic Acid 1.7 Calcium 9.4 Phosphorus Magnesium Iron TIBC Iron Saturation Unsaturated IBC Ferritin Total Bilirubin 0.5 AST 76 H ALT 20 Alkaline Phosphatase 70 Creatine Kinase 3769 H Creatine Kinase Index 0.4 CK-MB (CK-2) 18.4 H Troponin I Total Protein 7.4 Albumin 3.2 L Vitamin B12 Serum Folate Urine Color Urine Appearance Urine pH Ur Specific [place] Urine Protein Urine Glucose (UA) Urine Ketones Urine Blood Urine Nitrite Urine Bilirubin Urine Urobilinogen Ur Leukocyte Esterase Urine WBC (Auto) Urine RBC (Auto) Urine Casts (Auto) U Epithel Cells (Auto) Urine Bacteria (Auto) COVID-19 (SANDRA) 11/08/19 11/08/19 11/08/19 14:55 16:45 19:47 WBC RBC Hgb Hct MCV MCH MCHC RDW Plt Count MPV Absolute Neuts (auto) Neutrophils % Lymphocytes % Monocytes % Eosinophils % Basophils % Nucleated RBC % PT with INR INR PTT (Actin FS) VBG pH POC VBG pCO2 POC VBG pO2 VBG HCO3 VBG O2 Sat (Anthony) VBG Base Excess Sodium Potassium Chloride Carbon Dioxide Anion Gap BUN Creatinine Est GFR (CKD-EPI)AfAm Est GFR (CKD-EPI)NonAf POC Glucometer 327 Random Glucose Hemoglobin A1c % Lactic Acid Calcium Phosphorus Magnesium Iron TIBC Iron Saturation Unsaturated IBC Ferritin Total Bilirubin AST ALT Alkaline Phosphatase Creatine Kinase Creatine Kinase Index CK-MB (CK-2) Troponin I Total Protein Albumin Vitamin B12 Serum Folate Urine Color Yellow Urine Appearance Cloudy Urine pH 5.0 D Ur Specific [place] 1.018 Urine Protein 1+ H Urine Glucose (UA) 3+ H Urine Ketones Negative Urine Blood 3+ H Urine Nitrite Positive H Urine Bilirubin Negative Urine Urobilinogen 1.0 Ur Leukocyte Esterase 1+ H Urine WBC (Auto) 279 Urine RBC (Auto) 22 Urine Casts (Auto) 1 U Epithel Cells (Auto) 2 Urine Bacteria (Auto) >10,000 COVID-19 (SANDRA) Not detected 11/08/19 11/08/19 11/09/19 19:55 23:34 02:35 WBC RBC Hgb Hct MCV MCH MCHC RDW Plt Count MPV Absolute Neuts (auto) Neutrophils % Lymphocytes % Monocytes % Eosinophils % Basophils % Nucleated RBC % PT with INR INR PTT (Actin FS) VBG pH POC VBG pCO2 POC VBG pO2 VBG HCO3 VBG O2 Sat (Anthony) VBG Base Excess Sodium Potassium Chloride Carbon Dioxide Anion Gap BUN Creatinine Est GFR (CKD-EPI)AfAm Est GFR (CKD-EPI)NonAf POC Glucometer 280 Random Glucose Hemoglobin A1c % Lactic Acid Calcium Phosphorus Magnesium Iron TIBC Iron Saturation Unsaturated IBC Ferritin Total Bilirubin AST ALT Alkaline Phosphatase Creatine Kinase Creatine Kinase Index CK-MB (CK-2) Troponin I 0.09 H 0.03 Total Protein Albumin Vitamin B12 Serum Folate Urine Color Urine Appearance Urine pH Ur Specific [place] Urine Protein Urine Glucose (UA) Urine Ketones Urine Blood Urine Nitrite Urine Bilirubin Urine Urobilinogen Ur Leukocyte Esterase Urine WBC (Auto) Urine RBC (Auto) Urine Casts (Auto) U Epithel Cells (Auto) Urine Bacteria (Auto) COVID-19 (SANDRA) 11/09/19 11/09/19 11/09/19 06:36 06:40 06:40 WBC 6.2 RBC 3.85 Hgb 8.9 L Hct 28.0 L MCV 72.8 L MCH 23.0 L MCHC 31.6 L RDW 19.1 H Plt Count 249 MPV 7.5 Absolute Neuts (auto) Neutrophils % Lymphocytes % Monocytes % Eosinophils % Basophils % Nucleated RBC % PT with INR INR PTT (Actin FS) VBG pH POC VBG pCO2 POC VBG pO2 VBG HCO3 VBG O2 Sat (Anthony) VBG Base Excess Sodium 141 Potassium 4.8 Chloride 109 H Carbon Dioxide 25 Anion Gap 7 L BUN 28.9 H Creatinine 1.3 Est GFR (CKD-EPI)AfAm 46.15 Est GFR (CKD-EPI)NonAf 39.82 POC Glucometer 271 Random Glucose 272 H Hemoglobin A1c % Lactic Acid Calcium 8.8 Phosphorus 3.4 Magnesium 1.9 Iron 24 L TIBC 264 Iron Saturation 9 L Unsaturated IBC 240 Ferritin 119.3 Total Bilirubin AST ALT Alkaline Phosphatase Creatine Kinase 3988 H Creatine Kinase Index 0.3 CK-MB (CK-2) 10.4 H Troponin I Total Protein Albumin Vitamin B12 561 Serum Folate 8 Urine Color Urine Appearance Urine pH Ur Specific [place] Urine Protein Urine Glucose (UA) Urine Ketones Urine Blood Urine Nitrite Urine Bilirubin Urine Urobilinogen Ur Leukocyte Esterase Urine WBC (Auto) Urine RBC (Auto) Urine Casts (Auto) U Epithel Cells (Auto) Urine Bacteria (Auto) COVID-19 (SADNRA) 11/09/19 11/09/19 11/09/19 06:40 11:15 17:06 WBC RBC Hgb Hct MCV MCH MCHC RDW Plt Count MPV Absolute Neuts (auto) Neutrophils % Lymphocytes % Monocytes % Eosinophils % Basophils % Nucleated RBC % PT with INR INR PTT (Actin FS) VBG pH POC VBG pCO2 POC VBG pO2 VBG HCO3 VBG O2 Sat (Anthony) VBG Base Excess Sodium Potassium Chloride Carbon Dioxide Anion Gap BUN Creatinine Est GFR (CKD-EPI)AfAm Est GFR (CKD-EPI)NonAf POC Glucometer 275 285 Random Glucose Hemoglobin A1c % Lactic Acid Calcium Phosphorus Magnesium Iron TIBC Iron Saturation Unsaturated IBC Ferritin Total Bilirubin AST ALT Alkaline Phosphatase Creatine Kinase Creatine Kinase Index CK-MB (CK-2) 10.4 H Troponin I Total Protein Albumin Vitamin B12 Serum Folate Urine Color Urine Appearance Urine pH Ur Specific [place] Urine Protein Urine Glucose (UA) Urine Ketones Urine Blood Urine Nitrite Urine Bilirubin Urine Urobilinogen Ur Leukocyte Esterase Urine WBC (Auto) Urine RBC (Auto) Urine Casts (Auto) U Epithel Cells (Auto) Urine Bacteria (Auto) COVID-19 (SANDRA) 11/09/19 11/10/19 11/10/19 20:56 07:05 07:05 WBC 5.4 RBC 3.60 Hgb 8.3 L Hct 26.3 L MCV 73.1 L MCH 23.0 L MCHC 31.5 L RDW 19.1 H Plt Count 213 MPV 7.4 L Absolute Neuts (auto) Neutrophils % Lymphocytes % Monocytes % Eosinophils % Basophils % Nucleated RBC % PT with INR INR PTT (Actin FS) VBG pH POC VBG pCO2 POC VBG pO2 VBG HCO3 VBG O2 Sat (Anthony) VBG Base Excess Sodium 140 Potassium 4.9 Chloride 110 H Carbon Dioxide 25 Anion Gap 5 L BUN 25.4 H Creatinine 1.1 Est GFR (CKD-EPI)AfAm 56.48 Est GFR (CKD-EPI)NonAf 48.73 POC Glucometer 304 Random Glucose 218 H Hemoglobin A1c % Lactic Acid Calcium 8.5 Phosphorus 2.9 Magnesium 1.7 L Iron TIBC Iron Saturation Unsaturated IBC Ferritin Total Bilirubin AST ALT Alkaline Phosphatase Creatine Kinase 1516 H Creatine Kinase Index 0.1 CK-MB (CK-2) 1.8 Troponin I Total Protein Albumin Vitamin B12 Serum Folate Urine Color Urine Appearance Urine pH Ur Specific [place] Urine Protein Urine Glucose (UA) Urine Ketones Urine Blood Urine Nitrite Urine Bilirubin Urine Urobilinogen Ur Leukocyte Esterase Urine WBC (Auto) Urine RBC (Auto) Urine Casts (Auto) U Epithel Cells (Auto) Urine Bacteria (Auto) COVID-19 (SANDRA) 11/10/19 11/10/19 11/10/19 07:05 07:14 12:53 WBC RBC Hgb Hct MCV MCH MCHC RDW Plt Count MPV Absolute Neuts (auto) Neutrophils % Lymphocytes % Monocytes % Eosinophils % Basophils % Nucleated RBC % PT with INR INR PTT (Actin FS) VBG pH POC VBG pCO2 POC VBG pO2 VBG HCO3 VBG O2 Sat (Anthony) VBG Base Excess Sodium Potassium Chloride Carbon Dioxide Anion Gap BUN Creatinine Est GFR (CKD-EPI)AfAm Est GFR (CKD-EPI)NonAf POC Glucometer 211 244 Random Glucose Hemoglobin A1c % 9.6 H Lactic Acid Calcium Phosphorus Magnesium Iron TIBC Iron Saturation Unsaturated IBC Ferritin Total Bilirubin AST ALT Alkaline Phosphatase Creatine Kinase Creatine Kinase Index CK-MB (CK-2) Troponin I Total Protein Albumin Vitamin B12 Serum Folate Urine Color Urine Appearance Urine pH Ur Specific [place] Urine Protein Urine Glucose (UA) Urine Ketones Urine Blood Urine Nitrite Urine Bilirubin Urine Urobilinogen Ur Leukocyte Esterase Urine WBC (Auto) Urine RBC (Auto) Urine Casts (Auto) U Epithel Cells (Auto) Urine Bacteria (Auto) COVID-19 (SANDRA) 11/10/19 11/11/19 11/11/19 17:05 06:23 06:30 WBC 6.5 RBC 3.96 Hgb 9.2 L Hct 29.0 L MCV 73.2 L MCH 23.3 L MCHC 31.8 L RDW 18.7 H Plt Count 249 MPV 7.8 Absolute Neuts (auto) Neutrophils % Lymphocytes % Monocytes % Eosinophils % Basophils % Nucleated RBC % PT with INR INR PTT (Actin FS) VBG pH POC VBG pCO2 POC VBG pO2 VBG HCO3 VBG O2 Sat (Anthony) VBG Base Excess Sodium Potassium Chloride Carbon Dioxide Anion Gap BUN Creatinine Est GFR (CKD-EPI)AfAm Est GFR (CKD-EPI)NonAf POC Glucometer 250 241 Random Glucose Hemoglobin A1c % Lactic Acid Calcium Phosphorus Magnesium Iron TIBC Iron Saturation Unsaturated IBC Ferritin Total Bilirubin AST ALT Alkaline Phosphatase Creatine Kinase Creatine Kinase Index CK-MB (CK-2) Troponin I Total Protein Albumin Vitamin B12 Serum Folate Urine Color Urine Appearance Urine pH Ur Specific [place] Urine Protein Urine Glucose (UA) Urine Ketones Urine Blood Urine Nitrite Urine Bilirubin Urine Urobilinogen Ur Leukocyte Esterase Urine WBC (Auto) Urine RBC (Auto) Urine Casts (Auto) U Epithel Cells (Auto) Urine Bacteria (Auto) COVID-19 (SANDRA) 11/11/19 11/11/19 11/11/19 06:30 11:17 17:05 WBC RBC Hgb Hct MCV MCH MCHC RDW Plt Count MPV Absolute Neuts (auto) Neutrophils % Lymphocytes % Monocytes % Eosinophils % Basophils % Nucleated RBC % PT with INR INR PTT (Actin FS) VBG pH POC VBG pCO2 POC VBG pO2 VBG HCO3 VBG O2 Sat (Anthony) VBG Base Excess Sodium 137 Potassium 4.9 Chloride 105 Carbon Dioxide 22 Anion Gap 10 BUN 18.2 H Creatinine 1.1 Est GFR (CKD-EPI)AfAm 56.48 Est GFR (CKD-EPI)NonAf 48.73 POC Glucometer 238 270 Random Glucose 253 H Hemoglobin A1c % Lactic Acid Calcium 8.4 L Phosphorus 2.5 Magnesium 1.5 L Iron TIBC Iron Saturation Unsaturated IBC Ferritin Total Bilirubin 0.3 AST 54 H ALT 23 Alkaline Phosphatase 57 Creatine Kinase 1077 H Creatine Kinase Index 0.0 CK-MB (CK-2) 1.0 Troponin I Total Protein 6.2 L Albumin 2.4 L Vitamin B12 Serum Folate Urine Color Urine Appearance Urine pH Ur Specific [place] Urine Protein Urine Glucose (UA) Urine Ketones Urine Blood Urine Nitrite Urine Bilirubin Urine Urobilinogen Ur Leukocyte Esterase Urine WBC (Auto) Urine RBC (Auto) Urine Casts (Auto) U Epithel Cells (Auto) Urine Bacteria (Auto) COVID-19 (SANDRA) 11/11/19 11/12/19 11/12/19 21:41 05:36 07:10 WBC RBC Hgb Hct MCV MCH MCHC RDW Plt Count MPV Absolute Neuts (auto) Neutrophils % Lymphocytes % Monocytes % Eosinophils % Basophils % Nucleated RBC % PT with INR INR PTT (Actin FS) VBG pH POC VBG pCO2 POC VBG pO2 VBG HCO3 VBG O2 Sat (Anthony) VBG Base Excess Sodium 137 Potassium 4.6 Chloride 105 Carbon Dioxide 24 Anion Gap 9 BUN 15.9 Creatinine 1.1 Est GFR (CKD-EPI)AfAm 56.48 Est GFR (CKD-EPI)NonAf 48.73 POC Glucometer 244 222 Random Glucose 201 H Hemoglobin A1c % Lactic Acid Calcium 8.8 Phosphorus Magnesium 1.8 Iron TIBC Iron Saturation Unsaturated IBC Ferritin Total Bilirubin 0.3 AST 39 H ALT 19 Alkaline Phosphatase 61 Creatine Kinase 560 H Creatine Kinase Index 0.1 CK-MB (CK-2) 1.0 Troponin I Total Protein 6.4 Albumin 2.5 L Vitamin B12 Serum Folate Urine Color Urine Appearance Urine pH Ur Specific [place] Urine Protein Urine Glucose (UA) Urine Ketones Urine Blood Urine Nitrite Urine Bilirubin Urine Urobilinogen Ur Leukocyte Esterase Urine WBC (Auto) Urine RBC (Auto) Urine Casts (Auto) U Epithel Cells (Auto) Urine Bacteria (Auto) COVID-19 (SANDRA) 11/12/19 11/12/19 11/13/19 11:53 17:29 06:29 WBC RBC Hgb Hct MCV MCH MCHC RDW Plt Count MPV Absolute Neuts (auto) Neutrophils % Lymphocytes % Monocytes % Eosinophils % Basophils % Nucleated RBC % PT with INR INR PTT (Actin FS) VBG pH POC VBG pCO2 POC VBG pO2 VBG HCO3 VBG O2 Sat (Anthony) VBG Base Excess Sodium Potassium Chloride Carbon Dioxide Anion Gap BUN Creatinine Est GFR (CKD-EPI)AfAm Est GFR (CKD-EPI)NonAf POC Glucometer 212 246 200 Random Glucose Hemoglobin A1c % Lactic Acid Calcium Phosphorus Magnesium Iron TIBC Iron Saturation Unsaturated IBC Ferritin Total Bilirubin AST ALT Alkaline Phosphatase Creatine Kinase Creatine Kinase Index CK-MB (CK-2) Troponin I Total Protein Albumin Vitamin B12 Serum Folate Urine Color Urine Appearance Urine pH Ur Specific [place] Urine Protein Urine Glucose (UA) Urine Ketones Urine Blood Urine Nitrite Urine Bilirubin Urine Urobilinogen Ur Leukocyte Esterase Urine WBC (Auto) Urine RBC (Auto) Urine Casts (Auto) U Epithel Cells (Auto) Urine Bacteria (Auto) COVID-19 (SANDRA) 11/13/19 11/13/19 11/13/19 07:15 07:15 10:53 WBC 6.7 RBC 4.35 Hgb 10.1 L Hct 31.5 L MCV 72.5 L MCH 23.1 L MCHC 31.9 L RDW 18.7 H Plt Count 271 MPV 7.2 L Absolute Neuts (auto) 3.7 Neutrophils % 55.7 Lymphocytes % 34.8 D Monocytes % 6.7 Eosinophils % 2.4 D Basophils % 0.4 Nucleated RBC % 0 PT with INR INR PTT (Actin FS) VBG pH POC VBG pCO2 POC VBG pO2 VBG HCO3 VBG O2 Sat (Anthony) VBG Base Excess Sodium 138 Potassium 4.7 Chloride 104 Carbon Dioxide 26 Anion Gap 8 BUN 15.8 Creatinine 1.0 Est GFR (CKD-EPI)AfAm 63.38 Est GFR (CKD-EPI)NonAf 54.68 POC Glucometer 198 Random Glucose 192 H Hemoglobin A1c % Lactic Acid Calcium 8.9 Phosphorus Magnesium 1.7 L Iron TIBC Iron Saturation Unsaturated IBC Ferritin Total Bilirubin 0.2 AST 29 ALT 19 Alkaline Phosphatase 64 Creatine Kinase 288 H Creatine Kinase Index No Result Required. CK-MB (CK-2) < 1.0 Troponin I Total Protein 6.8 Albumin 2.7 L Vitamin B12 Serum Folate Urine Color Urine Appearance Urine pH Ur Specific [place] Urine Protein Urine Glucose (UA) Urine Ketones Urine Blood Urine Nitrite Urine Bilirubin Urine Urobilinogen Ur Leukocyte Esterase Urine WBC (Auto) Urine RBC (Auto) Urine Casts (Auto) U Epithel Cells (Auto) Urine Bacteria (Auto) COVID-19 (SANDRA) Imaging: CT scan of the head w/o IV contrast Compared to prior CT scan of the head dated 06/10/2019 and prior MRI of the brain, stroke protocol dated 06/11/2019 Beam hardening artifacts from dental fillings/hardware obscuring detail in the inferior aspect of the posterior fossa, including the brainstem. The rest of the brain again demonstrates mild volume loss and ventricular prominence. No mass lesion, gross CT evidence of an acute infarct or intracranial hemorrhage are identified. Minimal mucoperiosteal thickening in the left ethmoid air cells, posteriorly. The mastoid air cells are well aerated and the calvarium is intact. Note is again made of dense calcification in the left eye globe Impression: Slightly Limited examination, as described above. Mild volume loss without gross CT evidence of acute intracranial pathology. The calvarium is intact. CT scan of the lumbar spine without intravenous contrast. Coronal and sagittal reconstruction images were obtained. Compared to prior CT scan of the lumbar spine dated 06/10/2019 There is mild dextroscoliosis of the lumbar spine. The height and alignment of the vertebral bodies appear unremarkable without gross evidence of a fracture or dislocation. Moderate degenerative narrowing the of T11-T12 intervertebral disc space. T12-L1 mild degenerative vacuum phenomena. L1-L2 minimal degenerative vacuum phenomena, anteriorly. L3-L4 mild to moderate degenerative vacuum phenomena and minimal disc bulge. There is no gross evidence of spinal canal stenosis. Note is made of linear-like metallic density seen right and left side of the abdomen pelvis compatible with prior initial procedure. The uterus was not visualized on the included images Impression: See discussion above Mild dextroscoliosis of the lumbar spine without gross evidence of a compression fracture or subluxation. TYPE/EXAM: RAD/FOOT-RIGHT Right foot: Possible osteomyelitis 3 views of the right foot reveal loss of bone density, degenerative changes with bunion formation by the first MTP joint. There is also bunion formation by the first MTP joint of the left foot. There is some artifact. The toes are angulated. There is thickening of the periosteum of the third and fourth metatarsal suggestive of old trauma. An acute process is not seen. If one is concerned about osteomyelitis, three-phase bone scan or MR is suggested TYPE/EXAM: RAD/FOOT-LEFT Left foot: Possible osteomyelitis 4 views of the left foot have been submitted. There are degenerative changes, sock artifact and calcaneal spurring. There is no sign of blastic or lytic changes and no sign of gross fracture. If one is concerned about osteomyelitis, three-phase bone scan or MR is suggested. HOSPITAL COURSE: Patient is 74 yo female PMHx of HTN, HLD, CAD (w/blockages), hypothyroid, DM2, venous insufficiency, uterine CA (s/p hysterectomy) & recurrent UTI (last one 1 week ago). Presented to the ED s/p fall. She was walking to the kitchen with a plate in one hand and using her walker when she said she slipped and fell. She was on the floor for over 6 hours. She was found to be tachycardic, with a fever (100.5), and + UA. Admitted to hospital for sepsis. Was also found to have elevated CPK and mildly elevated troponins. Patient was treated with IV fluids and IV rocehpin. Patient CPK trended down throughout her stay. Her urinary symptoms improved. While the patient was here, her chronic plantar surface heel wounds were looked at by podiatry and treated with santyl. She was seen by PT and they recommended continued physical therapy for the patient given her decreased strength. Patient was discharged to short term rehab. She is to complete 2 days of 500mg BID Ceftin PO. Patient was advised to follow up with her primary care provider within 1 week, regarding her medication and to have her CK levels check again. The patient was also advised to follow up with Dr. Sterling in the [facility] to monitor her BL foot wounds to prevent any infections. Date of Admission:11/08/19 Date of Discharge: 11/13/19 Minutes to complete discharge: 38 Discharge Summary Problems reviewed: Yes Reason For Visit: FALL Current Active Problems Fall (Acute) Urinary tract infection (Acute) Condition: Stable - Instructions Diet, Activity, Other Instructions: Visit: You came to the hospital after you had a fall and were on the ground for a prolonged period of time. You were found to have a urinary tract infection that was treated with antibiotics. You also had elevated muscle breakdown enzymes from being on the ground for so long. We gave your fluids and those levels have gone down. You are not stable for discharge to a short term rehab facility. You will be going there to increase your strength to help prevent future falls Medication: - Since you had some muscle injury, please stop taking your Lipitor 20mg and Fenofibrate for 1 week. You may resume these medications after 1 week when you see your PCP. - We started you on antibiotics in the hospital. Please continue Ceftin 500mg 2x per day for 3 days starting tomorrow morning. - Please start taking 10 units Levemir in the morning for better control of your blood sugar, and continue to monitor your blood glucose regularly at home. - Please continue using aquaphor on your legs and wrapping with marvin bandages. - We started you on vitamin C and Zinc supplements to help support your skin's healing. - We also started you miralax, please keep taking as needed for constipation. - Please continue taking the rest of your home medications as prescribed Follow up: Please follow up with your primary care provider within 1 week, regarding your medication and continuity of care. You will need to have your CK levels checked to make sure your muscle injury has resolved completely. Please follow up with Dr. Sterling in the [facility] here in the hospital on the 5th floor to have your heel wounds checked on within 1 week. Other If you start to have fever, chest pain, shortness or breath, or increased dizziness, please call 911 or go to the nearest emergency room. Referrals: Milind Rodriguez MD [Primary Care Provider] - 1 Week Bob Salgado MD [Staff Physician] - 1 Month Evaristo Sterling DO [Staff Physician] - 1 Week (wound care follow up ) Disposition: [facility] - Home Medications Comprehensive Discharge Medication List: Ambulatory Orders Norco-3 Fatty Acids [Norco-3] 1,000 mg PO DAILY 04/06/14 Levothyroxine Sodium 50 mcg PO DAILY tablet 09/28/16 Fenofibrate,Micronized [Fenofibrate] 135 mg PO DAILY 01/03/19 Isosorbide Mononitrate [Isosorbide Mononitrate ER] 30 mg PO DAILY 01/03/19 Metoprolol Tartrate 25 mg PO BID 01/03/19 Cholecalciferol (Vitamin D3) [Vitamin D3] 2,000 unit PO DAILY 06/11/19 Metformin HCl [Glucophage] 1,000 mg PO BID 06/11/19 Pioglitazone HCl [Actos] 15 mg PO DAILY 06/11/19 Cyanocobalamin [Vitamin B12 -] 1,000 mcg PO DAILY 30 Days #30 tablet 06/13/19 Ferrous Sulfate 325 mg PO DAILY 30 Days #30 tablet 06/13/19 Gabapentin 300 mg PO HS 11/08/19 Insulin Aspart [Novolog] See Protocol SQ TID 11/10/19 Acetaminophen [Tylenol .Regular Strength -] 650 mg PO Q6H PRN tablet 11/13/19 Ascorbic Acid [Vitamin C -] 500 mg PO DAILY tablet 11/13/19 Atorvastatin Ca [Lipitor] 20 mg PO HS tablet 11/13/19 Cefuroxime Axetil [Ceftin -] 500 mg PO BID 2 Days #3 tablet 11/13/19 Collagenase Clostridium Hist. [Santyl -] 1 applic TP DAILY tube 11/13/19 Insulin (Levemir) [Levemir Vial] 10 units SQ AM units 11/13/19 Insulin Pump Controller [Omnipod Dash Pdm Kit] See Protocol SQ TID 11/13/19 Insulin Sliding Scale [Novolog Vial Sliding Scale -] 1 vial SQ TIDAC units 11/13/19 Lactobacillus Acidophilus [Bacid -] 1 tab PO DAILY tab 11/13/19 Mineral Oil/Pet Hy-Phl [Aquaphor -] 1 applic TP DAILY jar 11/13/19 Polyethylene Glycol 3350 [Miralax 119 gm Btl -] 17 gm PO DAILY bottle 11/13/19 Zinc Oxide 1 applic TP DAILY tube 11/13/19 Zinc Sulfate [Orazinc -] 220 mg PO DAILY capsule 11/13/19 This patient is new to me today: No Emergency Visit: Yes ED Registration Date: 11/08/19 Care time: The patient presented to the Emergency Department on the above date and was hospitalized for further evaluation of their emergent condition. Critical Care patient: No - Discharge Referral Referred to [facility] No Physician Referral: Evaristo Sterling DO ([facility]) (wound care) ATTENDING PHYSICIAN STATEMENT I saw and evaluated the patient. I reviewed the resident's note and discussed the case with the resident. I agree with the resident's findings and plan as documented. SUBJECTIVE: OBJECTIVE: ASSESSMENT AND PLAN:
[2019-11-13 14:31] VITALS: BP 131/79; PULSE 95; TEMP 98.2
== END 2019-11-13 15:33 | DRG 872 ==
LOC: JER 10:26 → JERBED 18:46 → J8W 21:57
PROVIDERS: ADMIT Internal Medicine; ATTEND Internal Medicine
DX: A41.9 Sepsis, unspecified organism (principal); M62.82 Rhabdomyolysis; N39.0 Urinary tract infection, site not specified; I24.8 Other forms of acute ischemic heart disease; E66.01 Morbid (severe) obesity due to excess calories; Z68.36 Body mass index [BMI] 36.0-36.9, adult; Z87.891 Personal history of nicotine dependence; I10 Essential (primary) hypertension; I25.10 Atherosclerotic heart disease of native coronary artery without angina pectoris; E03.9 Hypothyroidism, unspecified; E78.5 Hyperlipidemia, unspecified; Z85.42 Personal history of malignant neoplasm of other parts of uterus; D50.9 Iron deficiency anemia, unspecified; I87.2 Venous insufficiency (chronic) (peripheral); R21 Rash and other nonspecific skin eruption; E11.65 Type 2 diabetes mellitus with hyperglycemia; E83.42 Hypomagnesemia; Z79.4 Long term (current) use of insulin
CPT/HCPCS: 36415; 70450-TC; 71045-TC-FY; 72131-TC; 73630-TC-LT; 73630-TC-RT-FY; 80048; 80053; 81003; 82550; 82553; 82607; 82728; 82746; 82803; 82962; 83036; 83540; 83550; 83605; 83735; 84100; 84484; 85025; 85027; 85610; 85730; 87040; 93005; 93010; 97116-GP; 97162-GP; 99285-25; J0131; U0003

== ENCOUNTER 2020-01-22 03:28 | Inpatient (IN) | payer BC, OTHER ==
[2020-01-22] MEDS ORDERED: LIDOCAINE 1%/EPI 1:100000 (20 ML MULTI DOSE VIAL) ONE (03:43)
--- OUTSIDE RECORDS SUMMARY | 2020-01-22 03:46 | XMS ---
:1945 Author Organization [facility] Support Name Relationship Address Phone RE, RETIRED Unavailable Unavailable Unavailable RE Unavailable Unavailable Unavailable CATY REEDER SON [address] [place] [address] CATY REEDER Child [address] [place] [address] Re-disclosure Warning The records that you are about to access may contain information from federally- assisted alcohol or drug abuse programs. If such information is present, then the following federally mandated warning applies: This information has been disclosed to you from records protected by federal confidentiality rules (42 CFR part 2). The federal rules prohibit you from making any further disclosure of this information unless further disclosure is expressly permitted by the written consent of the person to whom it pertains or as otherwise permitted by 42 CFR part 2. A general authorization for the release of medical or other information is NOT sufficient for this purpose. The Federal rules restrict any use of the information to criminally investigate or prosecute any alcohol or drug abuse patient.The records that you are about to access may contain highly sensitive health information, the redisclosure of which is protected by Article 27-F of the [facility] Public Health law. If you continue you may haveaccess to information: Regarding HIV / AIDS; Provided by facilities licensed or operated by the [facility] Office of Mental Health; or Provided by the [facility] Office for People With Developmental Disabilities. If such information is present, then the following [facility] mandated warning applies: This information has been disclosed to you from confidential records which are protected by state law. State law prohibits you from making any further disclosure of this information without the specific written consent of the person to whom it pertains, or as otherwise permitted by law. Any unauthorized further disclosure in violation of state law may result in a fine or fdc sentence or both. A general authorization for the release of medical or other information is NOT sufficient authorization for further disclosure. Insurance Providers Payer name Policy type Policy ID Covered Covered republican's Policy P dolly / Coverage republican ID relationship to [employer] ormation type [employer] MEDICARE [id number] SP [id number] 14 4 [place] INDEMNITY [id number] SP [id number] 4 MEDICARE [id number] SP [id number] 14 4 EMPIRE BC/BS [id number] [place] MED[place] [id number] PART B DOWNSTATE E[employer]IRE BCBS [id number] (HMO) 4 [place] MED[place] [id number] 1 [id number] PART B 4 DOWNSTATE BC PPO [id number] OT [id number] 4 Results ID Date Data Source [id number] 11/08/2019 04:45:00 PM EDT [facility] Name Value Range Interpretation Description Data Sup porting Code Source(s) Document(s ) SARS [facility] coronavirus 2 RNA This lab was ordered by [facility] and reported by [facility]. Procedure
[2020-01-22 03:52] VITALS: BMI 33.9
[2020-01-22] MEDS ORDERED: LACTATED RINGERS SOLUTION 1000 ML INFUS.BAG IV ONE (04:00)
[2020-01-22 04:23] LABS: BASO % 0.5 % (0-2.0); EOS % 0.5 % (0-4.5); HEMATOCRIT 32.4 % (32.4-45.2); HEMOGLOBIN 10.3 GM/dL (10.7-15.3); LYMPH % 13.1 % (8-40); MCH 24.6 pg (25.7-33.7); MCHC 31.8 g/dl (32.0-36.0); MEAN CELL VOLUME 77.4 fl (80-96); MEAN PLT VOLUME 8.1 fl (7.5-11.1); NEUT % 79.9 % (42.8-82.8); PLATELET COUNT 285 K/MM3 (134-434); RBC 4.19 M/mm3 (3.60-5.2); RDW 19.5 % (11.6-15.6); WHITE BLOOD COUNT 10.9 K/mm3 (4.0-10.0)
[2020-01-22 04:33] LABS: INR 1.06 (0.83-1.09); PROTHROMBIN TIME (PATIENT) 12.8 SEC (9.7-13.0)
[2020-01-22 04:36] LABS: ACTIVATED PTT 28.1 SECONDS (25.2-36.5)
[2020-01-22 04:48] LABS: POTASSIUM 5.6 mmol/L (3.5-5.1)
[2020-01-22 04:51] LABS: ALBUMIN 3.3 g/dl (3.4-5.0); BLOOD UREA NITROGEN 26.5 mg/dL (7-18); CALCIUM 9.1 mg/dL (8.5-10.1)
[2020-01-22 04:54] LABS: CREATININE 1.3 mg/dL (0.55-1.3)
[2020-01-22 04:56] LABS: BILIRUBIN,TOTAL 0.3 mg/dL (0.2-1); TOT PROT 7.6 g/dl (6.4-8.2)
--- NOTE | 2020-01-22 04:58 | PDOC ---
Attending Attestation - Resident Resident Name: Roberto Laboy - ED Attending Attestation I have performed the following: I have examined & evaluated the patient, The case was reviewed & discussed with the resident, I agree w/resident's findings & plan - HPI HPI: 01/22/20 04:56 Pt was walking thru her hallway from the bathroom to the kitchen and she thinks that she may have slipped on a rug and whacked her head on a green trunk. She has a large laceration of the left parietal area of her skull. Pt is A+Ox3. She called for help. Her neighbor heard and called 911. Pt lives alone and she called her son. 01/22/20 05:03 - Physicial Exam PE: 01/22/20 04:58 Agree with resident exam - Medical Decision Making 01/22/20 04:58 Pt will get head and neck CT scan 01/22/20 05:03 Pt has an extensive cardiac history. She has elevated CPK; also pt lives alone and needs 24 hr monitoring at least. 01/22/20 06:05 Patient Name: TOMMY REEDER THIS IS A PRELIMINARY REPORT DATE OF SERVICE: 2020-01-22 04:58:17 IMAGES: [id number] EXAM: HEAD CT WITHOUT CONTRAST HISTORY: 74-year-old female fell COMPARISON: January 22, 2020 FINDINGS: Mild left parietal scalp soft tissue swelling subcutaneous hematoma skin laceration and introduced air bubbles. No acute intracranial hemorrhage mass effect or midline shift. The ventricles sulci and basilar cisterns have a normal size and contour. Mild nonspecific periventricular predominant low density throughout the deep white matter is most likely due to mild small vessel ischemic white matter disease. Calcified arteriosclerosis of the cavernous carotids noted. The sinuses and mastoid air cells are clear within the [id number]. The calvarium is intact. Chronic hyperdensity in the left globe. IMPRESSION No acute intracranial hemorrhage mass effect or midline shift. Mild nonspecific periventricular predominant low density throughout the deep white matter is most likely due to mild small vessel ischemic white matter disease. Calcified arteriosclerosis of the cavernous carotids noted. Mild left parietal scalp soft tissue swelling subcutaneous hematoma skin laceration and introduced air bubbles. Chronic hyperdensity in the left globe. 01/22/20 06:06 Patient Name: TOMMY REEDER THIS IS A PRELIMINARY REPORT DATE OF SERVICE: 2020-01-22 04:55:03 IMAGES: [id number] EXAM: CERVICAL SPINE CT W/O CONTR HISTORY: 74-year-old female fell nausea COMPARISON: None. TECHNIQUE: Axial CT images were acquired from the skull base to the upper thoracic spine. Sagittal and coronal reformations were then acquired. FINDINGS: There is no prevertebral soft tissue swelling. There is no evidence of acute fracture or subluxation. There are no destructive lesions. Mild degenerative disc disease and mild degenerative joint disease of the uncovertebral joints and facets throughout the cervical spine. Mild spinal canal narrowing in the middle and lower cervical levels. Mild to moderate neural foraminal narrowing in the middle and lower cervical levels. Right shoulder arthroplasty on the foreign banknote teller trader view. IMPRESSION: No evidence of acute fracture or subluxation. Mild degenerative disc disease and mild degenerative joint disease of the un covertebral joints and facets throughout the cervical spine. Mild spinal canal narrowing in the middle and lower cervical levels. Mild to moderate neural foraminal narrowing in the middle and lower ce rvical levels. Right shoulder arthroplasty on the foreign banknote teller trader view. 01/22/20 06:07 Patient Name: TOMMY REEDER THIS IS A PRELIMINARY REPORT DATE OF SERVICE: 2020-01-22 05:02:03 IMAGES: [id number] EXAM: CT right lower extremity without contrast and CT left lower extremity without contrast HISTORY: 74-year-old female left hip pain and right knee pain COMPARISON: January 22, 2020 Technique: Axial sagittal coronal CT scan images of the left and right lower extremity from the hip to the knee. FINDINGS: Lack of intravenous contrast limits this exam. Status post hysterectomy. Mild to moderate degenerative joint disease of the hips and knees. No acute fracture or dislocation. Moderate circumferential subcutaneous fluid in the calfs. IMPRESSION: Status post hysterectomy. Mild to moderate degenerative joint disease of the hips and knees. No acute fracture or dislocation. Moderate circumferential subcutaneous fluid in the calfs. If clinically indicated further evaluation and workup may be needed. Discharge - Discharge Information Problems reviewed: Yes Clinical Impression/Diagnosis: Fall Qualifiers: Encounter type: initial encounter Qualified Code(s): W19.XXXA - Unspecified fall, initial encounter Condition: Improved Disposition: LONG-TERM FACILITY - Follow up/Referral - Patient Discharge Instructions - Post Discharge Activity
[2020-01-22] MEDS ORDERED: INSULIN REGULAR HUMAN 100 UNITS/ML *VIAL SQ ONE (04:59)
--- NOTE | 2020-01-22 05:22 | PDOC ---
History of Present Illness - General Chief Complaint: Injury Stated Complaint: FALL/INJURY Time Seen by Provider: 01/22/20 03:48 - History of Present Illness Initial Comments: 01/22/20 05:53 Patient is 74 yo female pmhx HTN, HLD, CAD (w/blockages), hypothyroid, DM2, venous insufficiency, uterine CA (s/p hysterectomy) , recurrent UTI , recurrent falls BIBA from home for fall. Patient had a fall around 5 or 6 pm. Around 4am, his son found her to be on the floor immobilized. Patient denied LOC, nausea, vomitng, fever, chill. She endorsed falling, have left hip pain, and right knee pain. She stated she was clumsy and fell at home. Patient lives alone at home. Patient was hesitant on coming to the ED. PMHX: as in HPI PSHX: cholycestectomy, hytestercomy. Meds: Allergies: NKDA Tob: Etoh: Rec drugs: PCP: Director Of Archives: MARI GENERAL/CONSTITUTIONAL: No fever or chills. No weakness. HEAD, EYES, EARS, NOSE AND THROAT: No change in vision. No ear pain or discharge. No sore throat. CARDIOVASCULAR: No chest pain or shortness of breath RESPIRATORY: No cough, wheezing, or hemoptysis. GASTROINTESTINAL: No nausea, vomiting, diarrhea or constipation. GENITOURINARY: No dysuria, frequency, or change in urination. MUSCULOSKELETAL: No joint or muscle swelling or pain.+ left hip pain, right knee pain. SKIN: No new rash NEUROLOGIC: No headache, vertigo, loss of consciousness, or change in strength/sensation. ENDOCRINE: No increased thirst. No abnormal weight change HEMATOLOGIC/LYMPHATIC: No anemia, easy bleeding, or history of blood clots. ALLERGIC/IMMUNOLOGIC: No hives or skin allergy. PE GENERAL:AOx3, in no acute distress wearing her pajama. Morbidly obese. HEAD: signs of trauma, left parietal 3 cm laceration, normocephalic, EYES: PERRLA, EOMI, sclera anicteric, conjunctiva clear ENT: Auricles normal inspection, hearing grossly normal, nares patent, oropharynx clear without exudates. Moist mucosa NECK: Normal ROM, supple, no lymphadenopathy, JVD, or masses LUNGS: No distress, speaks full sentences, clear to auscultation bilaterally HEART: Regular rate and rhythm, normal S1 and S2, no murmurs, rubs or gallops, peripheral pulses normal and equal bilaterally. ABDOMEN: Soft, nontender, protruding, normoactive bowel sounds. No guarding, no rebound. No masses EXTREMITIES : Normal range of motion, no edema. Chronic venous insuffience legs/ non tender . NEUROLOGICAL: Cranial nerves II through XII grossly intact. Normal speech, no focal sensorimotor deficits SKIN: Warm, Dry, normal turgor, no rashes or lesions noted Psy: easily distracted. Angry mood Past History - Medical History Allergies/Adverse Reactions: Allergies Allergy/AdvReac Type Severity Reaction Status Date / Time No Known Drug Allergies Allergy Verified 06/11/19 01:31 CATS Allergy Intermediate Difficulty Uncoded 06/11/19 01:31 Breathing DOGS Allergy Intermediate Difficulty Uncoded 06/11/19 01:31 Breathing NKDA Allergy Uncoded 06/11/19 01:31 Home Medications: Ambulatory Orders Clayton-3 Fatty Acids [Clayton-3] 1,000 mg PO DAILY 04/06/14 Levothyroxine Sodium 50 mcg PO DAILY tablet 09/28/16 Fenofibrate,Micronized [Fenofibrate] 135 mg PO DAILY 01/03/19 Isosorbide Mononitrate [Isosorbide Mononitrate ER] 30 mg PO DAILY 01/03/19 Metoprolol Tartrate 25 mg PO BID 01/03/19 Cholecalciferol (Vitamin D3) [Vitamin D3] 2,000 unit PO DAILY 06/11/19 Metformin HCl [Glucophage] 1,000 mg PO BID 06/11/19 Pioglitazone HCl [Actos] 15 mg PO DAILY 06/11/19 Cyanocobalamin [Vitamin B12 -] 1,000 mcg PO DAILY 30 Days #30 tablet 06/13/19 Ferrous Sulfate 325 mg PO DAILY 30 Days #30 tablet 06/13/19 Gabapentin 300 mg PO HS 11/08/19 Insulin Aspart [Novolog] See Protocol SQ TID 11/10/19 Acetaminophen [Tylenol .Regular Strength -] 650 mg PO Q6H PRN tablet 11/13/19 Ascorbic Acid [Vitamin C -] 500 mg PO DAILY tablet 11/13/19 Atorvastatin Ca [Lipitor] 20 mg PO HS tablet 11/13/19 Cefuroxime Axetil [Ceftin -] 500 mg PO BID 2 Days #3 tablet 11/13/19 Collagenase Clostridium Hist. [Santyl -] 1 applic TP DAILY tube 11/13/19 Insulin (Levemir) [Levemir Vial] 10 units SQ AM units 11/13/19 Insulin Pump Controller [Omnipod Dash Pdm Kit] See Protocol SQ TID 11/13/19 Insulin Sliding Scale [Novolog Vial Sliding Scale -] 1 vial SQ TIDAC units 11/13/19 Lactobacillus Acidophilus [Bacid -] 1 tab PO DAILY tab 11/13/19 Mineral Oil/Pet Hy-Phl [Aquaphor -] 1 applic TP DAILY jar 11/13/19 Polyethylene Glycol 3350 [Miralax 119 gm Btl -] 17 gm PO DAILY bottle 11/13/19 Zinc Oxide 1 applic TP DAILY tube 11/13/19 Zinc Sulfate [Orazinc -] 220 mg PO DAILY capsule 11/13/19 Anemia: No Asthma: No Cancer: Yes (UTERINE 2001) Cardiac Disorders: Yes CVA: No COPD: No CHF: No Dementia: No Diabetes: Yes (2005) GI Disorders: No Disorders: Yes (INCONTINENCE/recurrent uti) HTN: No Hypercholesterolemia: Yes Liver Disease: No Seizures: No Thyroid Disease: Yes (HYPOTHYROIDISM) - Surgical History Abdominal Surgery: No Appendectomy: Yes (1965) Cardiac Surgery: No Cholecystectomy: Yes (1965) Lung Surgery: No Neurologic Surgery: No Orthopedic Surgery: Yes (lt rotator cuff repair/ rt. shoulder replacement) - Reproductive History Is Patient Now?: No - Psycho-Social/Smoking History Smoking History: Unknown if ever smoked Have you smoked in the past 12 months: No Number of Cigarettes Smoked Daily: 20 If you are a former smoker, when did you quit?: 10 YEARS AGO - Substance Abuse Hx (Audit-C & DAST Scrn) How often the patient has a drink containing alcohol: Never Score: In Men: 4 or > Positive; In Women: 3 or > Positive: 0 Screen Result (Pos requires Nsg. Audit-10AR): Negative In the last yr the pt used illegal drug/Rx for NonMed reason: No Score: Yes response is considered Positive: 0 Screen Result (Positive result requires Nsg. DAST-10): Negative *Physical Exam - Vital Signs Last Vital Signs Temp Pulse Resp BP Pulse Ox 98.5 F 127 H 20 133/56 L 98 01/22/20 03:45 01/22/20 03:45 01/22/20 03:45 01/22/20 03:45 01/22/20 03:45 Procedures - Laceration/Wound Repair Left Head Wound Length: 2.6 to 5.0 cm Wound Explored: clean Wound's Depth, Shape: superficial Irrigated w/ Saline: Yes Anesthesia: 1% Lidocaine w/ Epi Amount of Anesthetic (ccs): 10 Wound Repaired With: Cate ED Treatment Course - LABORATORY CBC & Chemistry Diagram: 01/22/20 04:00 01/22/20 04:00 - ADDITIONAL ORDERS Additional order review: Laboratory Results 01/22/20 01/22/20 04:00 04:00 PT with INR 12.80 INR 1.06 PTT (Actin FS) 28.1 Sodium 138 Potassium 5.6 H Chloride 106 Carbon Dioxide 23 Anion Gap 10 BUN 26.5 H Creatinine 1.3 Est GFR (CKD-EPI)AfAm 46.15 Est GFR (CKD-EPI)NonAf 39.82 Random Glucose 247 H Calcium 9.1 Total Bilirubin 0.3 AST 34 ALT 19 Alkaline Phosphatase 83 Creatine Kinase 434 H Creatine Kinase Index 0.5 CK-MB (CK-2) 2.2 Troponin I 0.02 Total Protein 7.6 Albumin 3.3 L 01/22/20 04:00 RBC 4.19 MCV 77.4 L MCHC 31.8 L RDW 19.5 H MPV 8.1 D Neutrophils % 79.9 D Lymphocytes % 13.1 D Monocytes % 6.0 Eosinophils % 0.5 Basophils % 0.5 - RADIOLOGY Radiology Studies Ordered: Category Date Time Status CERVICAL SPINE CT W/O CONTR [CT] Stat CT Scan 01/22/20 03:[address] WITHOUT CONTRAST [CT] Stat CT Scan 01/22/20 03:[address] W/O CONTR [CT] Stat CT Scan 01/22/20 04:45 Taken PORTCXR [CHEST X-RAY PORTABLE*] [RAD] Stat Radiology 01/22/20 04:14 Taken - Medications Given in the ED: ED Medications Discontinued Medications Generic Name Dose Route Start Last Admin Trade Name Freq PRN Reason Stop Dose Admin Lactated Ringer's 1,000 ml 01/22/20 04:00 01/22/20 04:23 Lactated Ringers Solution IV 01/22/20 04:01 1,000 ml ONCE ONE Administration Medical Decision Making - Medical Decision Making 01/22/20 06:02 Patient is 74 yo female pmhx HTN, HLD, CAD (w/blockages), hypothyroid, DM2, venous insufficiency, uterine CA (s/p hysterectomy) , recurrent UTI , recurrent falls BIBA from home for fall. Head CT+ neck CT+ chest xray Blood work: CBC, CMP, CKP ---> look for rhapdomyolysis. EKG: Head laceration repair with stapes and irrigation. Pain control: tylenol. Plan to admit for fall + unsafe at home + elevated creatine kinase 298. Will sign out. 01/22/20 06:05 01/22/20 06:13 CT scan is negative for fracture and brain bleed. MBMD sent. 01/22/20 06:15 Elevated blood sugar + mildly elevated K--> gave 2 units of Insulin. Discharge - Discharge Information Problems reviewed: Yes Clinical Impression/Diagnosis: Fall Qualifiers: Encounter type: initial encounter Qualified Code(s): W19.XXXA - Unspecified fall, initial encounter Condition: Good - Admission Yes - Follow up/Referral Referrals: Milind Rodriguez MD [Primary Care Provider] - - Patient Discharge Instructions - Post Discharge Activity
[2020-01-22] MEDS ORDERED: ACETAMINOPHEN 325 MG TABLET (FP) PO ONE (06:04)
[2020-01-22] MEDS ORDERED: ACETAMINOPHEN 325 MG TABLET (FP) ONE (06:32)
--- OUTSIDE RECORDS SUMMARY | 2020-01-22 07:08 | XMS ---
:1945 Author Organization [facility] Support Name Relationship Address Phone RE, RETIRED Unavailable Unavailable Unavailable RE Unavailable Unavailable Unavailable CATY REEDER SON [address] [place] [address] CATY REEDER Child [address] [place] [address] Re-disclosure Warning The records that you are [...] is protected by Article 27-F of the [facility] Public Health law. If you continue you may haveaccess to information: Regarding HIV / AIDS; Provided by facilities licensed or operated by the [facility] Office of Mental Health; or Provided by the [facility] Office for People With Developmental Disabilities. If such information is present, then the following [facility] mandated warning applies: This information has [...] law may result in a fine or alf sentence or both. A general authorization for the release of medical or other information is NOT sufficient authorization for further disclosure. Insurance Providers Payer name Policy type Policy ID Covered Covered republican's Policy P dolly / Coverage republican ID relationship to [employer] ormation type [employer] MEDICARE [id number] SP [id number] 14 4 [place] INDEMNITY [id number] SP [id number] 4 MEDICARE [id number] SP [id number] 14 4 EMPIRE BC/BS [id number] 89 [place] MEDIC[place] [id number] PART B DOWNSTATE [employer] BCBS [id number] (HMO) 4 [place] [id number] 1 [id number] PART B 4 DOWNSTATE BC PPO [id number] 4 Results ID Date Data Source [id number] 11/08/2019 04:45:00 PM EDT [facility] Name Value Range Interpretation Description Data Sup porting Code Source(s) Document(s ) SARS [facility] coronavirus 2 RNA This lab was ordered by [facility] and reported by [facility]. Procedure
[2020-01-22] MEDS ORDERED: SODIUM CHLORIDE 1,000 ML IV SCH (08:00)
--- NOTE | 2020-01-22 08:17 | HP ---
CHIEF COMPLAINT: fall PCP: Dr. Rodriguez HISTORY OF PRESENT ILLNESS: Patient is a 74 year old female with past medical history of HTN, HLD, CAD, hypothyroidism, DM2, venous insufficiency, uterine Ca (s/p hysterectomy), presented to the ED after a fall. Patient reported she was preparing her meal in the kitchen last night when she suddenly slipped and fell. She was on the floor for a few hours until her neighbor heard her screaming and was able to call her son who arrived around 4am who had the keys. EMS was called and patient was brought to the ED. She was noted to have a laceration at the left parietal area that was stapled close. Patient has had multiple falls in the past, most notably in October 2019, when she was admitted for rhabdo 04/30 fall. She was discharged to [facility] for rehab then. Patient denies any headache or dizziness, loss of consciousness. She denies fevers, chills, headache, chest pain, sOB, abdominal pain, diarrhea. ER course was notable for: (1)CK 434, K 5.6 (2)1L LR (3) Recent Travel: denies PAST MEDICAL HISTORY: HTN HLD CAD hypothyroid DM2 venous insufficiency uterine CA PAST SURGICAL HISTORY: Left rotator cuff tear Right Reverse Total Shoulder Replacement Multiple eye surgeries Hysterectomy Cholecystectomy Family History: Strong hx colon CA - mother and sister both from it Father had diabetes Social History: Smoking:denies Alcohol:denies Drugs: denies Allergies No Known Drug Allergies Allergy (Verified 06/11/19 01:31) CATS Allergy (Intermediate, Uncoded 06/11/19 01:31) Difficulty Breathing DOGS Allergy (Intermediate, Uncoded 06/11/19 01:31) Difficulty Breathing NKDA Allergy (Uncoded 06/11/19 01:31) HOME MEDICATIONS: Home Medications Medication Instructions Recorded Harper-3 Fatty Acids [Harper-3] 1,000 mg PO DAILY 04/06/14 Levothyroxine Sodium 50 mcg PO DAILY tablet 09/28/16 Fenofibrate,Micronized 135 mg PO DAILY 01/03/19 [Fenofibrate] Isosorbide Mononitrate [Isosorbide 30 mg PO DAILY 01/03/19 Mononitrate ER] Metoprolol Tartrate 25 mg PO BID 01/03/19 Cholecalciferol (Vitamin D3) 2,000 unit PO DAILY 06/11/19 [Vitamin D3] Metformin HCl [Glucophage] 1,000 mg PO BID 06/11/19 Pioglitazone HCl [Actos] 15 mg PO DAILY 06/11/19 Cyanocobalamin [Vitamin B12 -] 1,000 mcg PO DAILY 30 Days #30 06/13/19 tablet Ferrous Sulfate 325 mg PO DAILY 30 Days #30 tablet 06/13/19 Gabapentin 300 mg PO HS 11/08/19 Insulin Aspart [Novolog] See Protocol SQ TID 11/10/19 Acetaminophen [Tylenol .Regular 650 mg PO Q6H PRN tablet 11/13/19 Strength -] Ascorbic Acid [Vitamin C -] 500 mg PO DAILY tablet 11/13/19 Atorvastatin Ca [Lipitor] 20 mg PO HS tablet 11/13/19 Collagenase Clostridium Hist. 1 applic TP DAILY tube 11/13/19 [Santyl -] Insulin (Levemir) [Levemir Vial] 10 units SQ AM units 11/13/19 Insulin Pump Controller [Omnipod See Protocol SQ TID 11/13/19 Dash Pdm Kit] Insulin Sliding Scale [Novolog 1 vial SQ TIDAC units 11/13/19 Vial Sliding Scale -] Lactobacillus Acidophilus [Bacid -] 1 tab PO DAILY tab 11/13/19 Mineral Oil/Pet Hy-Phl [Aquaphor -] 1 applic TP DAILY jar 11/13/19 Polyethylene Glycol 3350 [Miralax 17 gm PO DAILY bottle 11/13/19 119 gm Btl -] Zinc Oxide 1 applic TP DAILY tube 11/13/19 Zinc Sulfate [Orazinc -] 220 mg PO DAILY capsule 11/13/19 REVIEW OF SYSTEMS CONSTITUTIONAL: Absent: fever, chills, diaphoresis, generalized weakness, malaise, loss of appetite, weight change HEENT: Absent: rhinorrhea, nasal congestion, throat pain, throat swelling, difficulty swallowing, mouth swelling, ear pain, eye pain, visual changes CARDIOVASCULAR: Absent: chest pain, syncope, palpitations, irregular heart rate, lightheadedness, peripheral edema RESPIRATORY: Absent: cough, shortness of breath, dyspnea with exertion, orthopnea, wheezing, stridor, hemoptysis GASTROINTESTINAL: Absent: abdominal pain, abdominal distension, nausea, vomiting, diarrhea, constipation, melena, hematochezia GENITOURINARY: Absent: dysuria, frequency, urgency, hesitancy, hematuria, flank pain, genital pain MUSCULOSKELETAL: Absent: myalgia, arthralgia, joint swelling, back pain, neck pain SKIN: Absent: rash, itching, pallor HEMATOLOGIC/IMMUNOLOGIC: Absent: easy bleeding, easy bruising, lymphadenopathy, frequent infections ENDOCRINE: Absent: unexplained weight gain, unexplained weight loss, heat intolerance, cold intolerance NEUROLOGIC: Absent: headache, focal weakness or paresthesias, dizziness, unsteady gait, seizure, mental status changes, bladder or bowel incontinence PSYCHIATRIC: Absent: anxiety, depression, suicidal or homicidal ideation, hallucinations. PHYSICAL EXAMINATION Vital Signs - 24 hr 01/22/20 01/22/20 01/22/20 03:45 05:00 06:59 Temperature 98.5 F 98.8 F Pulse Rate 127 H Pulse Rate [ 126 H Right Radial] Respiratory 20 24 H Rate Blood Pressure 133/56 L Blood Pressure 150/73 [Right Arm] O2 Sat by Pulse 98 98 100 Oximetry (%) GENERAL: Awake, alert, and fully oriented, in no acute distress. HEAD: +laceration on left parietal area, caesar intact EYES: PERRLA, EOMI, sclera anicteric, conjunctiva clear. EARS, NOSE, THROAT: Moist mucous membranes. NECK: Normal range of motion, supple LUNGS: decreased breath sounds on bilateral bases HEART: Regular rate and rhythm, normal S1 and S2 ABDOMEN: Soft, nontender, not distended, normoactive bowel sounds MUSCULOSKELETAL: limited ROM b/l LE due to knee and hip pain LOWER EXTREMITIES: 2+ pulses, warm, well-perfused. B/L LE venous stasis dermatitis, b/l Non pitting edema NEUROLOGICAL: Cranial nerves II-XII grossly intact. Normal speech. PSYCHIATRIC: Cooperative. Good eye contact. Appropriate mood and affect. SKIN: Warm, dry, normal turgor Laboratory Results - last 24 hr 01/22/20 01/22/20 01/22/20 04:00 04:00 04:00 WBC 10.9 H RBC 4.19 Hgb 10.3 L Hct 32.4 MCV 77.4 L MCH 24.6 L MCHC 31.8 L RDW 19.5 H Plt Count 285 MPV 8.1 D Absolute Neuts (auto) 8.7 H Neutrophils % 79.9 D Lymphocytes % 13.1 D Monocytes % 6.0 Eosinophils % 0.5 Basophils % 0.5 Nucleated RBC % 0 PT with INR 12.80 INR 1.06 PTT (Actin FS) 28.1 Sodium 138 Potassium 5.6 H Chloride 106 Carbon Dioxide 23 Anion Gap 10 BUN 26.5 H Creatinine 1.3 Est GFR (CKD-EPI)AfAm 46.15 Est GFR (CKD-EPI)NonAf 39.82 Random Glucose 247 H Calcium 9.1 Total Bilirubin 0.3 AST 34 ALT 19 Alkaline Phosphatase 83 Creatine Kinase 434 H Creatine Kinase Index 0.5 CK-MB (CK-2) 2.2 Troponin I 0.02 Total Protein 7.6 Albumin 3.3 L ASSESSMENT/PLAN: Patient is a 74 year old female with past medical history of HTN, HLD, CAD, hypothyroidism, DM2, venous insufficiency, uterine Ca (s/p hysterectomy), presented to the ED after a fall. #Rhabdomyolysis 2/2 fall -likely mechanical, denies any dizziness or LOC -CK 434 -gentle IVF hydration in setting of CHF and monitor CK levels -physical therapy -fall precaution #Hyperkalemia -likely 2/2 rhabdo -IVF and insulin given -no EKG changes -will monitor K and correct prn #UTI -UA: 3+ blood, 9 RBC, 1+LE, 309 wbc -Mild leukocytosis -prev cultures showed [place]-sens E.coli -will treat with Ceftriaxone for now pending UA cultures #Microcytic Anemia -likely 2/2 iron deficiency -Iron studies in 10/2019 revealed low iron 24, low TSAT 9% -Continue Ferrous sulfate #HTN -Continue Metoprolol 25mg bid #HLD -Continue Atorvastatin 20mg daily -Fenofibrate 135mg daily #Hypothyroidism -Continue SYnthroid 50mcg daily #DM -Hold home PO meds -Insulin sliding scale implemented -BGM ACHS -continue home Levemir 10u HS #Venous insufficiency -continue daily wound care with zinc ointment and Santyl -keep legs elevated #FEN -IV NS @42cc/hr -hyperK, will recheck, routine bmp monitoring -Sodium restricted/diabetic diet #Prophylaxis -Heparin 5000u sq tid #Disposition -admit to tele Family Medical History Family History: As Documented Visit type - Medication Review Med list reviewed for High Risk Meds patients 65 and older: Yes - Emergency Visit Emergency Visit: Yes ED Registration Date: 01/22/20 Care time: The patient presented to the Emergency Department on the above date and was hospitalized for further evaluation of their emergent condition. - New Patient This patient is new to me today: Yes Date on this admission: 01/23/20 - Critical Care Critical Care patient: No ATTENDING PHYSICIAN STATEMENT I saw and evaluated the patient. I reviewed the resident's note and discussed the case with the resident. I agree with the resident's findings and plan as documented. SUBJECTIVE: OBJECTIVE: ASSESSMENT AND PLAN:
[2020-01-22] MEDS ORDERED: LEVOTHYROXINE NA 25 MCG TABLET (FP) ONE (09:05)
[2020-01-22] MEDS: LEVOTHYROXINE NA 50 MCG TABLET (FP) PO SCH (09:10)
[2020-01-22 09:29] LABS: EPI CELLS 31 /uL (0-25.1); HYALINE CASTS 3 /uL (0-3.1); URINE APPEARANCE CLEAR; URINE BACTERIA 25 /uL (0-1359); URINE BILIRUBIN NEGATIVE (NEGATIVE); URINE COLOR YELLOW; URINE GLUCOSE (UA) 1+ (NEGATIVE); URINE KETONE NEGATIVE (NEGATIVE); URINE LEUK ESTERASE 1+ (NEGATIVE); URINE NITRITE NEGATIVE (NEGATIVE); URINE PROTEIN 1+ (NEGATIVE); URINE RBC 9 /uL (0-23.9); URINE WBC 203 /uL (0-25.8)
--- NOTE | 2020-01-22 09:55 | EKG ---
Test Reason : Blood Pressure : / mmHG Vent. Rate : 126 BPM Atrial Rate : 126 BPM P-R Int : 144 ms QRS Dur : 070 ms QT Int : 312 ms P-R-T Axes : 047 030 039 degrees QTc Int : 451 ms SINUS TACHYCARDIA NONSPECIFIC ST ABNORMALITY ABNORMAL ECG WHEN COMPARED WITH ECG OF 12-NOV-2019 10:40, VENT. RATE HAS INCREASED BY 47 BPM T WAVE VARIATION Confirmed by SILVINO WOMACK MD ([id number]) on 01/22/2020 9:55:29 AM Referred By: Confirmed By:SILVINO WOMACK MD
[2020-01-22] MEDS ORDERED: FENOFIBRIC ACID 135 MG CAP PO SCH (10:00)
[2020-01-22] MEDS ORDERED: METOPROLOL TARTRATE 25 MG TABLET (FP) ONE (10:07)
[2020-01-22] MEDS ORDERED: FERROUS SO4 325 MG TABLET (FP) ONE (10:07)
[2020-01-22] MEDS: OMEGA-3 ACID ETHYL ESTERS (FATTY-ACIDS) 1 GM CAPSULE (FP) PO SCH (10:26)
[2020-01-22] MEDS: MINERAL OIL/PET HY-PHL TOPICAL OINTMENT 454 GM JAR TP SCH (10:26)
[2020-01-22] MEDS: METOPROLOL TARTRATE 25 MG TABLET (FP) PO SCH ×2 (10:26→21:34)
[2020-01-22] MEDS: FERROUS SO4 325 MG TABLET (FP) PO SCH (10:26)
[2020-01-22] MEDS: ZINC OXIDE 20% TOPICAL OINTMENT 30 GM TUBE TP SCH (10:27)
[2020-01-22] MEDS: ZINC SULFATE 220 MG CAPSULE (FP) PO SCH (10:27)
[2020-01-22] MEDS: POLYETHYLENE GLYCOL 3350 119 GM BTL PO SCH (10:27)
[2020-01-22] MEDS: CYANOCOBALAMIN 1,000 MCG TABLET (FP) PO SCH (10:36)
[2020-01-22] MEDS: ISOSORBIDE MONONITRATE 30 MG TAB.SR.24H (FP) PO SCH (10:36)
[2020-01-22] MEDS: ASCORBIC ACID 500 MG TABLET (FP) PO SCH (10:36)
[2020-01-22] MEDS: CHOLECALCIFEROL (VIT D3) 1,000 UNIT (25 MCG) TABLET PO SCH (10:36)
[2020-01-22] MEDS: COLLAGENASE CLOSTRIDIUM HIST. 30 GRAMS TUBE TP SCH (10:59)
[2020-01-22] MEDS ORDERED: ACETAMINOPHEN 1000 MG/100 ML VIAL (NON FORMULARY) IVPB ONE (11:03)
[2020-01-22] MEDS ORDERED: ACETAMINOPHEN INJECTION 100 ML IVPB ONE (11:17)
[2020-01-22] MEDS ORDERED: CEFTRIAXONE 1 GM/50 ML BAG ONE (12:08)
[2020-01-22] MEDS: INSULIN SLIDING SCALE (NOVOLOG) 1 VIAL SQ SCH ×3 (12:17→23:13)
[2020-01-22] MEDS: CEFTRIAXONE 1 GM in DEXTROSE 5%-WATER - 50 ML IVPB SCH (12:17)
[2020-01-22] MEDS: HEPARIN NA (PORCINE) 5,000 UNITS/ML 1ML VIAL SQ SCH (18:07)
[2020-01-22] MEDS: GABAPENTIN 300 MG CAPSULE PO SCH (21:35)
[2020-01-22] MEDS ORDERED: MELATONIN 5 MG TABLETS PO ONE (21:46)
[2020-01-22 21:49] LABS: POTASSIUM 5.8 mmol/L (3.5-5.1)
[2020-01-22 21:50] LABS: BLOOD UREA NITROGEN 23.4 mg/dL (7-18); CALCIUM 8.8 mg/dL (8.5-10.1)
[2020-01-22 21:54] LABS: CREATININE 1.1 mg/dL (0.55-1.3)
[2020-01-22] MEDS ORDERED: ATORVASTATIN CA 20 MG TABLET (FP) PO SCH (22:00)
[2020-01-22] MEDS ORDERED: CALCIUM GLUCONATE 10% - 1,000 MG/10 ML VIAL IVPUSH ONE (22:24)
[2020-01-22] MEDS ORDERED: INSULIN REGULAR HUMAN 100 UNITS/ML *VIAL IVPUSH ONE (22:25)
[2020-01-22] MEDS: ACETAMINOPHEN 325 MG TABLET (FP) PO PRN (23:08)
[2020-01-23] MEDS: HEPARIN NA (PORCINE) 5,000 UNITS/ML 1ML VIAL SQ SCH ×3 (02:43→17:58)
[2020-01-23 03:22] LABS: POTASSIUM 4.9 mmol/L (3.5-5.1)
[2020-01-23 03:24] LABS: BLOOD UREA NITROGEN 22.9 mg/dL (7-18); CALCIUM 9.2 mg/dL (8.5-10.1)
[2020-01-23 03:28] LABS: CREATININE 0.9 mg/dL (0.55-1.3)
[2020-01-23] MEDS: LEVOTHYROXINE NA 50 MCG TABLET (FP) PO SCH (06:03)
[2020-01-23] MEDS: ACETAMINOPHEN 325 MG TABLET (FP) PO PRN ×2 (06:03→21:22)
[2020-01-23] MEDS: INSULIN SLIDING SCALE (NOVOLOG) 1 VIAL SQ SCH ×4 (06:15→21:22)
[2020-01-23] MEDS: INSULIN (LEVEMIR) 100 UNITS/ML UNITS SQ SCH (06:16)
[2020-01-23 07:03] LABS: BASO % 0.4 % (0-2.0); HEMATOCRIT 31.5 % (32.4-45.2); LYMPH % 34.5 % (8-40); MCH 24.2 pg (25.7-33.7); MCHC 31.6 g/dl (32.0-36.0); MEAN CELL VOLUME 76.6 fl (80-96); MEAN PLT VOLUME 7.6 fl (7.5-11.1); NEUT % 56.1 % (42.8-82.8); PLATELET COUNT 293 K/MM3 (134-434); RBC 4.11 M/mm3 (3.60-5.2); RDW 19.7 % (11.6-15.6); WHITE BLOOD COUNT 7.1 K/mm3 (4.0-10.0)
[2020-01-23 07:32] LABS: POTASSIUM 4.9 mmol/L (3.5-5.1)
[2020-01-23 07:36] LABS: CALCIUM 9.6 mg/dL (8.5-10.1)
[2020-01-23 07:38] LABS: BLOOD UREA NITROGEN 21.3 mg/dL (7-18)
[2020-01-23 07:40] LABS: CREATININE 0.9 mg/dL (0.55-1.3); PHOSPHOROUS 3.5 mg/dL (2.5-4.9)
[2020-01-23 07:41] LABS: BILIRUBIN,TOTAL 0.4 mg/dL (0.2-1); TOT PROT 6.9 g/dl (6.4-8.2)
[2020-01-23 07:43] LABS: ALBUMIN 2.8 g/dl (3.4-5.0)
[2020-01-23] MEDS: SODIUM CHLORIDE 1,000 ML IV SCH (08:30)
--- NOTE | 2020-01-23 09:26 | PN ---
Teaching Attending Note Name of Resident: More Obando ATTENDING PHYSICIAN STATEMENT I saw and evaluated the patient. I reviewed the resident's note and discussed the case with the resident. I agree with the resident's findings and plan as documented. SUBJECTIVE: Patient seen and examined at bedside, admitted for mechanical slip and fall, was done for a while before neighbors got to her. VSS. OBJECTIVE: GENERAL: Awake, alert, and fully oriented, in no acute distress. HEAD: +laceration on left parietal area, caesar intact EYES: PERRLA, EOMI, sclera anicteric, conjunctiva clear. EARS, NOSE, THROAT: Moist mucous membranes. NECK: Normal range of motion, supple LUNGS: decreased breath sounds on bilateral bases HEART: Regular rate and rhythm, normal S1 and S2 ABDOMEN: Soft, nontender, not distended, normoactive bowel sounds MUSCULOSKELETAL: limited ROM b/l LE due to knee and hip pain LOWER EXTREMITIES: 2+ pulses, warm, well-perfused. B/L LE venous stasis dermatitis, b/l Non pitting edema NEUROLOGICAL: Cranial nerves II-XII grossly intact. Normal speech. PSYCHIATRIC: Cooperative. Good eye contact. Appropriate mood and affect. SKIN: Warm, dry, normal turgor Vital Signs (72 hours) 01/22/20 01/22/20 01/22/20 03:45 05:00 06:59 Temperature 98.5 F 98.8 F Pulse Rate 127 H Pulse Rate [ 126 H Right Radial] Respiratory 20 24 H Rate Blood Pressure 133/56 L Blood Pressure 150/73 [Right Arm] O2 Sat by Pulse 98 98 100 Oximetry (%) 01/22/20 01/22/20 01/22/20 08:30 09:30 11:10 Temperature 98.2 F Pulse Rate Pulse Rate [ 112 H 115 H Right Radial] Respiratory 20 20 Rate Blood Pressure Blood Pressure 130/72 115/57 L [Right Arm] O2 Sat by Pulse 98 95 95 Oximetry (%) 01/22/20 01/22/20 01/22/20 15:28 18:54 19:11 Temperature 98.4 F Pulse Rate 108 H Pulse Rate [ 84 Right Radial] Respiratory 20 20 Rate Blood Pressure 131/87 Blood Pressure 110/61 [Right Arm] O2 Sat by Pulse 97 97 97 Oximetry (%) 01/22/20 01/23/20 01/23/20 21:00 02:42 06:36 Temperature 98.0 F 97.7 F 97.9 F Pulse Rate 104 H 88 93 H Pulse Rate [ Right Radial] Respiratory 20 20 20 Rate Blood Pressure 125/61 111/50 L 162/70 Blood Pressure [Right Arm] O2 Sat by Pulse 100 93 L 96 Oximetry (%) 01/23/20 01/23/20 01/23/20 09:00 10:00 14:00 Temperature 98.4 F 98.2 F Pulse Rate 109 H 79 Pulse Rate [ Right Radial] Respiratory 20 20 18 Rate Blood Pressure 135/73 139/54 L Blood Pressure [Right Arm] O2 Sat by Pulse 96 96 Oximetry (%) 01/23/20 18:00 Temperature 98.9 F Pulse Rate 104 H Pulse Rate [ Right Radial] Respiratory 18 Rate Blood Pressure 137/72 Blood Pressure [Right Arm] O2 Sat by Pulse 93 L Oximetry (%) Microbiology 01/22/20 08:45 Urine - Urine Clean Catch Urine Culture - Final NO GROWTH OBTAINED Laboratory Results - last 24 hr 01/22/20 01/23/20 01/23/20 04:00 02:27 02:37 WBC RBC Hgb Hct MCV MCH MCHC RDW Plt Count MPV Absolute Neuts (auto) Neutrophils % Lymphocytes % Monocytes % Eosinophils % Basophils % Nucleated RBC % Sodium 138 Potassium 4.9 Chloride 107 Carbon Dioxide 24 Anion Gap 7 L BUN 22.9 H Creatinine 0.9 Est GFR (CKD-EPI)AfAm 71.98 Est GFR (CKD-EPI)NonAf 62.11 POC Glucometer 233 Random Glucose 215 H Calcium 9.2 Phosphorus Magnesium Total Bilirubin AST ALT Alkaline Phosphatase Creatine Kinase Creatine Kinase Index CK-MB (CK-2) Total Protein Albumin TSH COVID-19 (SANDRA) Not detected 01/23/20 01/23/20 01/23/20 06:00 06:00 21:17 WBC 7.1 RBC 4.11 Hgb 10.0 L Hct 31.5 L MCV 76.6 L MCH 24.2 L MCHC 31.6 L RDW 19.7 H Plt Count 293 MPV 7.6 Absolute Neuts (auto) 4.0 Neutrophils % 56.1 D Lymphocytes % 34.5 D Monocytes % 7.0 Eosinophils % 2.0 D Basophils % 0.4 Nucleated RBC % 0 Sodium 135 L Potassium 4.9 Chloride 104 Carbon Dioxide 24 Anion Gap 7 L BUN 21.3 H Creatinine 0.9 Est GFR (CKD-EPI)AfAm 71.98 Est GFR (CKD-EPI)NonAf 62.11 POC Glucometer 345 Random Glucose 226 H Calcium 9.6 Phosphorus 3.5 Magnesium 2.0 Total Bilirubin 0.4 AST 100 H ALT 26 Alkaline Phosphatase 76 Creatine Kinase 2989 H Creatine Kinase Index 0.1 CK-MB (CK-2) 4.8 H Total Protein 6.9 Albumin 2.8 L TSH 2.40 COVID-19 (SANDRA) Home Medications Medication Instructions Recorded Windsor-3 Fatty Acids [Windsor-3] 1,000 mg PO DAILY 04/06/14 Levothyroxine Sodium 50 mcg PO DAILY tablet 09/28/16 Fenofibrate,Micronized 135 mg PO DAILY 01/03/19 [Fenofibrate] Isosorbide Mononitrate [Isosorbide 30 mg PO DAILY 01/03/19 Mononitrate ER] Metoprolol Tartrate 25 mg PO BID 01/03/19 Cholecalciferol (Vitamin D3) 2,000 unit PO DAILY 06/11/19 [Vitamin D3] Metformin HCl [Glucophage] 1,000 mg PO BID 06/11/19 Pioglitazone HCl [Actos] 15 mg PO DAILY 06/11/19 Cyanocobalamin [Vitamin B12 -] 1,000 mcg PO DAILY 30 Days #30 06/13/19 tablet Ferrous Sulfate 325 mg PO DAILY 30 Days #30 tablet 06/13/19 Gabapentin 300 mg PO HS 11/08/19 Insulin Aspart [Novolog] See Protocol SQ TID 11/10/19 Acetaminophen [Tylenol .Regular 650 mg PO Q6H PRN tablet 11/13/19 Strength -] Ascorbic Acid [Vitamin C -] 500 mg PO DAILY tablet 11/13/19 Atorvastatin Ca [Lipitor] 20 mg PO HS tablet 11/13/19 Collagenase Clostridium Hist. 1 applic TP DAILY tube 11/13/19 [Santyl -] Insulin (Levemir) [Levemir Vial] 10 units SQ AM units 11/13/19 Insulin Pump Controller [Omnipod See Protocol SQ TID 11/13/19 Dash Pdm Kit] Insulin Sliding Scale [Novolog 1 vial SQ TIDAC units 11/13/19 Vial Sliding Scale -] Lactobacillus Acidophilus [Bacid -] 1 tab PO DAILY tab 11/13/19 Mineral Oil/Pet Hy-Phl [Aquaphor -] 1 applic TP DAILY jar 11/13/19 Polyethylene Glycol 3350 [Miralax 17 gm PO DAILY bottle 11/13/19 119 gm Btl -] Zinc Oxide 1 applic TP DAILY tube 11/13/19 Zinc Sulfate [Orazinc -] 220 mg PO DAILY capsule 11/13/19 Current Medications Generic Name Dose Route Start Last Admin Trade Name Freq PRN Reason Stop Dose Admin Acetaminophen 650 mg 01/22/20 07:50 01/23/20 21:22 Tylenol - PO 650 mg Q6H PRN Administration PAIN LEVEL 6-10 Ascorbic Acid 500 mg 01/22/20 10:00 01/23/20 10:29 Vitamin C - PO 500 mg DAILY JESÚS Administration Cholecalciferol 2,000 unit 01/22/20 10:00 01/23/20 10:31 Vitamin D3 - PO 2,000 unit DAILY JESÚS Administration Collagenase 1 applic 01/22/20 10:00 01/23/20 10:29 Santyl - TP 1 applic DAILY JESÚS Administration Protocol Cyanocobalamin 1,000 mcg 01/22/20 10:00 01/23/20 10:28 Vitamin B12 - PO 1,000 mcg DAILY JESÚS Administration Emollient Ointment 1 applic 01/22/20 10:00 01/23/20 11:31 Aquaphor - TP 1 dose DAILY JESÚS Administration Ferrous Sulfate 325 mg 01/22/20 10:00 01/23/20 10:29 Feosol - PO 325 mg DAILY JESÚS Administration Gabapentin 300 mg 01/22/20 22:00 01/23/20 21:22 Neurontin - PO 300 mg HS JESÚS Administration Heparin Sodium (Porcine) 5,000 unit 01/22/20 18:00 01/23/20 17:58 Heparin - SQ 5,000 unit Q8H-IV JESÚS Administration Ceftriaxone Sodium 1 gm/ 50 mls @ 200 mls/hr 01/22/20 11:15 01/23/20 10:27 Dextrose IVPB 200 mls/hr DAILY JESÚS Administration Protocol Sodium Chloride 1,000 mls @ 75 mls/hr 01/23/20 08:30 01/23/20 08:30 Normal Saline - IV 75 mls/hr ASDIR JESÚS Administration Insulin Aspart 1 vial 01/22/20 11:00 01/23/20 21:22 Novolog Vial Sliding Scale - SQ 8 units ACHS JESÚS Administration Protocol Insulin Detemir 10 units 01/23/20 07:00 01/23/20 06:16 Levemir Vial SQ 10 unit AM JESÚS Administration Isosorbide Mononitrate 30 mg 01/22/20 10:00 01/23/20 10:28 Imdur - PO 30 mg DAILY JESÚS Administration Levothyroxine Sodium 50 mcg 01/22/20 08:30 01/23/20 06:03 Synthroid - PO 50 mcg DAILY@0700 JESÚS Administration Metoprolol Tartrate 25 mg 01/22/20 10:00 01/23/20 21:22 Lopressor - PO 25 mg BID JESÚS Administration Multi-Ingredient Ointment 1 applic 01/22/20 10:00 01/23/20 10:31 Zinc Oxide TP 1 applic DAILY JESÚS Administration Nystatin 1 applic 01/23/20 11:15 01/23/20 12:21 Nystop Powder - TP 1 applic DAILY JESÚS Administration Hsghu-6-Bupe Ethyl Esters 1 gm 01/22/20 10:00 01/23/20 10:28 Lovaza - PO 1 gm DAILY JESÚS Administration Polyethylene Glycol 17 gm 01/22/20 10:00 01/23/20 10:29 Miralax (For Daily Use) - PO 17 gm DAILY JESÚS Administration Zinc Sulfate 220 mg 01/22/20 10:00 01/23/20 10:28 Orazinc - PO 220 mg DAILY JESÚS Administration ASSESSMENT AND PLAN: 74 F Mechanical fall Unsteady gait HTN HLD CAD T2DM Hypothyroidism Neuropathy Mild rhabdomyolysis Plan: Obtain orthostatics IV fluids Tylenol for pain Restart Imdur, Statin, ASA Tele monitoring (history unreliable) Trend trops x3 PT evaluation DVT ppx: Heparin
[2020-01-23] MEDS ORDERED: DEXTROSE 5%-WATER - 50 ML IVPB ONE (10:20)
[2020-01-23] MEDS ORDERED: cefTRIAXone SODIUM 1 GM VIAL ONE (10:20)
[2020-01-23] MEDS ORDERED: PT OWN MED DRAWER 7, Y5N ONE (10:21)
[2020-01-23] MEDS: CEFTRIAXONE 1 GM in DEXTROSE 5%-WATER - 50 ML IVPB SCH (10:27)
[2020-01-23] MEDS: ZINC SULFATE 220 MG CAPSULE (FP) PO SCH (10:28)
[2020-01-23] MEDS: METOPROLOL TARTRATE 25 MG TABLET (FP) PO SCH ×2 (10:28→21:22)
[2020-01-23] MEDS: OMEGA-3 ACID ETHYL ESTERS (FATTY-ACIDS) 1 GM CAPSULE (FP) PO SCH (10:28)
[2020-01-23] MEDS: ISOSORBIDE MONONITRATE 30 MG TAB.SR.24H (FP) PO SCH (10:28)
[2020-01-23] MEDS: CYANOCOBALAMIN 1,000 MCG TABLET (FP) PO SCH (10:28)
[2020-01-23] MEDS: ASCORBIC ACID 500 MG TABLET (FP) PO SCH (10:29)
[2020-01-23] MEDS: POLYETHYLENE GLYCOL 3350 119 GM BTL PO SCH (10:29)
[2020-01-23] MEDS: FERROUS SO4 325 MG TABLET (FP) PO SCH (10:29)
[2020-01-23] MEDS: COLLAGENASE CLOSTRIDIUM HIST. 30 GRAMS TUBE TP SCH (10:29)
[2020-01-23] MEDS: CHOLECALCIFEROL (VIT D3) 1,000 UNIT (25 MCG) TABLET PO SCH (10:31)
[2020-01-23] MEDS: ZINC OXIDE 20% TOPICAL OINTMENT 30 GM TUBE TP SCH (10:31)
[2020-01-23] MEDS: MINERAL OIL/PET HY-PHL TOPICAL OINTMENT 454 GM JAR TP SCH (11:31)
[2020-01-23] MEDS: NYSTATIN POWDER 100,000 UNITS/GM - 15 GM TOPICAL POWDER TP SCH (12:21)
--- NOTE | 2020-01-23 16:33 | PN ---
Teaching Attending Note Name of Resident: Lazaro Albright ATTENDING PHYSICIAN STATEMENT I saw and evaluated the patient. I reviewed the resident's note and discussed the case with the resident. I agree with the resident's findings and plan as documented. SUBJECTIVE: reports mechanical fall, no syncope. No PC , no fever . reproted urinary sx at home . R shoulder and hips pain OBJECTIVE: NAd, awake, alert, knows location , age, year . MMM, L parietal wound with caesar, and dry blood. L forehead abration . Cv: RRR, NO MRG Lungs: CTAB skin : no decubs on sacral area Abd: soft, Nd, TTP in suprapubic area. Nl BS . rednessa dn moist skin under R breast and both groins erythema , and wrinkled sjkin on lower legs . slight increased warmth . no fungal infectio among toes ASSESSMENT AND PLAN: 74 y/o lady with h/o HTN, HLD, CAD, hypothyroidism, DM2, venous insufficiency, uterine Ca (s/p hysterectomy), who presented after a mechanical fall. 1- Mechanical fall : No C spine Fx , no ICH. Cts reviewed. No HIp Fx on CT or LE s. will obtain R shoudler xray . need PT and rehab 2- Chronic LE edema , no signs of cellulitis . 3- UTI : cont ceftriaxone pending urine cx 4- Rhabdo : cont IVF . follow CPK and cr 5- HTN: cont imdur,and lopressor 5- Dm: cont levemir and SSI 6- DVT px : heparin sq 7- L globe density : chronic , seen on Ct scan. f/u as out pt HLOC . needs rehab at [facility] . she agrees
--- NOTE | 2020-01-23 19:53 | PN ---
Physical Exam: SUBJECTIVE: Patient seen and examined at bedside. Patient explains she trips alot and has been clumsy when speaking about her most recent fall. She endroses hip pain upon movement in bed OBJECTIVE: Vital Signs Period Temp Pulse Resp BP Sys/Jacobs Pulse Ox Last 24 Hr 97.7 F-98.9 F 79-109 18-20 111-162/50-73 93-100 GENERAL: The patient is awake, alert, and fully oriented, in no acute distress. NECK: Trachea midline, full range of motion, supple. LUNGS: Breath sounds equal, clear to auscultation bilaterally, no wheezes, no crackles, no accessory muscle use. HEART: Regular rate and rhythm, S1, S2 without murmur, rub or gallop. ABDOMEN: Soft, nontender, nondistended, normoactive bowel sounds, erythema and under breasts EXTREMITIES: erythematous lower extremities, warm to touch Laboratory Results - last 24 hr 01/22/20 01/22/20 01/23/20 04:00 21:20 02:27 WBC RBC Hgb Hct MCV MCH MCHC RDW Plt Count MPV Absolute Neuts (auto) Neutrophils % Lymphocytes % Monocytes % Eosinophils % Basophils % Nucleated RBC % Sodium 138 138 Potassium 5.8 H 4.9 Chloride 107 107 Carbon Dioxide 28 24 Anion Gap 3 L 7 L BUN 23.4 H 22.9 H Creatinine 1.1 0.9 Est GFR (CKD-EPI)AfAm 56.48 71.98 Est GFR (CKD-EPI)NonAf 48.73 62.11 POC Glucometer Random Glucose 321 H 215 H Calcium 8.8 9.2 Phosphorus Magnesium Total Bilirubin AST ALT Alkaline Phosphatase Creatine Kinase Creatine Kinase Index CK-MB (CK-2) Total Protein Albumin TSH COVID-19 (SANDRA) Not detected 01/23/20 01/23/20 01/23/20 02:37 06:00 06:00 WBC 7.1 RBC 4.11 Hgb 10.0 L Hct 31.5 L MCV 76.6 L MCH 24.2 L MCHC 31.6 L RDW 19.7 H Plt Count 293 MPV 7.6 Absolute Neuts (auto) 4.0 Neutrophils % 56.1 D Lymphocytes % 34.5 D Monocytes % 7.0 Eosinophils % 2.0 D Basophils % 0.4 Nucleated RBC % 0 Sodium 135 L Potassium 4.9 Chloride 104 Carbon Dioxide 24 Anion Gap 7 L BUN 21.3 H Creatinine 0.9 Est GFR (CKD-EPI)AfAm 71.98 Est GFR (CKD-EPI)NonAf 62.11 POC Glucometer 233 Random Glucose 226 H Calcium 9.6 Phosphorus 3.5 Magnesium 2.0 Total Bilirubin 0.4 AST 100 H ALT 26 Alkaline Phosphatase 76 Creatine Kinase 2989 H Creatine Kinase Index 0.1 CK-MB (CK-2) 4.8 H Total Protein 6.9 Albumin 2.8 L TSH 2.40 COVID-19 (SANDRA) Active Medications Generic Name Dose Route Start Last Admin Trade Name Freq PRN Reason Stop Dose Admin Acetaminophen 650 mg 01/22/20 07:50 01/23/20 06:03 Tylenol - PO 650 mg Q6H PRN Administration PAIN LEVEL 6-10 Ascorbic Acid 500 mg 01/22/20 10:00 01/23/20 10:29 Vitamin C - PO 500 mg DAILY JESÚS Administration Cholecalciferol 2,000 unit 01/22/20 10:00 01/23/20 10:31 Vitamin D3 - PO 2,000 unit DAILY JESÚS Administration Collagenase 1 applic 01/22/20 10:00 01/23/20 10:29 Santyl - TP 1 applic DAILY JESÚS Administration Protocol Cyanocobalamin 1,000 mcg 01/22/20 10:00 01/23/20 10:28 Vitamin B12 - PO 1,000 mcg DAILY JESÚS Administration Emollient Ointment 1 applic 01/22/20 10:00 01/23/20 11:31 Aquaphor - TP 1 dose DAILY JESÚS Administration Ferrous Sulfate 325 mg 01/22/20 10:00 01/23/20 10:29 Feosol - PO 325 mg DAILY JESÚS Administration Gabapentin 300 mg 01/22/20 22:00 01/22/20 21:35 Neurontin - PO 300 mg HS JESÚS Administration Heparin Sodium (Porcine) 5,000 unit 01/22/20 18:00 01/23/20 17:58 Heparin - SQ 5,000 unit Q8H-IV JESÚS Administration Ceftriaxone Sodium 1 gm/ 50 mls @ 200 mls/hr 01/22/20 11:15 01/23/20 10:27 Dextrose IVPB 200 mls/hr DAILY JESÚS Administration Protocol Sodium Chloride 1,000 mls @ 75 mls/hr 01/23/20 08:30 01/23/20 08:30 Normal Saline - IV 75 mls/hr ASDIR JESÚS Administration Insulin Aspart 1 vial 01/22/20 11:00 01/23/20 16:48 Novolog Vial Sliding Scale - SQ 8 units ACHS JESÚS Administration Protocol Insulin Detemir 10 units 01/23/20 07:00 01/23/20 06:16 Levemir Vial SQ 10 unit AM JESÚS Administration Isosorbide Mononitrate 30 mg 01/22/20 10:00 01/23/20 10:28 Imdur - PO 30 mg DAILY JESÚS Administration Levothyroxine Sodium 50 mcg 01/22/20 08:30 01/23/20 06:03 Synthroid - PO 50 mcg DAILY@0700 JESÚS Administration Metoprolol Tartrate 25 mg 01/22/20 10:00 01/23/20 10:28 Lopressor - PO 25 mg BID JESÚS Administration Multi-Ingredient Ointment 1 applic 01/22/20 10:00 01/23/20 10:31 Zinc Oxide TP 1 applic DAILY JESÚS Administration Nystatin 1 applic 01/23/20 11:15 01/23/20 12:21 Nystop Powder - TP 1 applic DAILY JESÚS Administration Gquim-4-Aujh Ethyl Esters 1 gm 01/22/20 10:00 01/23/20 10:28 Lovaza - PO 1 gm DAILY JESÚS Administration Polyethylene Glycol 17 gm 01/22/20 10:00 01/23/20 10:29 Miralax (For Daily Use) - PO 17 gm DAILY JESÚS Administration Zinc Sulfate 220 mg 01/22/20 10:00 01/23/20 10:28 Orazinc - PO 220 mg DAILY JESÚS Administration ASSESSMENT/PLAN: Ms. Montemayor is a 74F with h/o HTN, HLD, CAD, hypothyroidism, DM2, venous insufficiency, uterine Ca (s/p hysterectomy), who presented to the hospital s/p mechanical fall w a L parietal scalp laceration #Mechanical fall - Imaging did not reveal any acute fractures - Hip pain - no fracture noted on CT scan - R shoulder pain xray ordered - PT consulted #Rhabdo secondary to fall - will continue to follow patients CK levels - continuing the patient on IVF in the setting of CHF - patient not on home lasix or loop diuretics - will continue to monitor patients kidney function #Lower extremity erythema/swelling likely 2/2 chronic CHF - encourage patient to keep legs elevated - will monitor legs each day - will instruct patient to use compression stockings #Possible UTI - follow up urine cultures - continue patient on ceftriaxone - #HX of htn - continue patient on home lopressor and imdur #HX of Dm - ISS - Diabetic diet #VTE ppx - heparin sq Visit type - Emergency Visit Emergency Visit: Yes ED Registration Date: 01/22/20 Care time: The patient presented to the Emergency Department on the above date and was hospitalized for further evaluation of their emergent condition. - New Patient This patient is new to me today: Yes Date on this admission: 01/23/20 - Critical Care Critical Care patient: No - Discharge Referral Referred to [facility] Med P.C.: No - Medication Review Med list reviewed for High Risk Meds patients 65 and older: Yes ATTENDING PHYSICIAN STATEMENT I saw and evaluated the patient. I reviewed the resident's note and discussed the case with the resident. I agree with the resident's findings and plan as documented. SUBJECTIVE: OBJECTIVE: ASSESSMENT AND PLAN:
[2020-01-23] MEDS ORDERED: MELATONIN 5 MG TABLETS PO ONE (19:58)
[2020-01-23] MEDS: GABAPENTIN 300 MG CAPSULE PO SCH (21:22)
[2020-01-23] MEDS ORDERED: diphenhydrAMINE HCL 25 MG CAPSULE (FP) PO ONE (23:58)
[2020-01-24] MEDS: HEPARIN NA (PORCINE) 5,000 UNITS/ML 1ML VIAL SQ SCH ×3 (01:31→17:40)
[2020-01-24] MEDS: LEVOTHYROXINE NA 50 MCG TABLET (FP) PO SCH (06:04)
[2020-01-24] MEDS: SODIUM CHLORIDE 1,000 ML IV SCH ×2 (06:05→08:35)
[2020-01-24] MEDS: INSULIN (LEVEMIR) 100 UNITS/ML UNITS SQ SCH (06:05)
[2020-01-24] MEDS: INSULIN SLIDING SCALE (NOVOLOG) 1 VIAL SQ SCH ×4 (06:05→21:26)
[2020-01-24 06:54] LABS: HEMATOCRIT 29.4 % (32.4-45.2); HEMOGLOBIN 9.3 GM/dL (10.7-15.3); MCH 24.1 pg (25.7-33.7); MCHC 31.5 g/dl (32.0-36.0); MEAN CELL VOLUME 76.5 fl (80-96); MEAN PLT VOLUME 7.7 fl (7.5-11.1); PLATELET COUNT 253 K/MM3 (134-434); RBC 3.85 M/mm3 (3.60-5.2); RDW 19.5 % (11.6-15.6); WHITE BLOOD COUNT 5.9 K/mm3 (4.0-10.0)
[2020-01-24 07:18] LABS: CHLORIDE 104 mmol/L (98-107); POTASSIUM 4.9 mmol/L (3.5-5.1); SODIUM 136 mmol/L (136-145)
[2020-01-24 07:20] LABS: ALBUMIN 2.5 g/dl (3.4-5.0); ANION GAP 6 MMOL/L (8-16); BLOOD UREA NITROGEN 18.3 mg/dL (7-18); CALCIUM 8.8 mg/dL (8.5-10.1); CO2 26 mmol/L (21-32); GLUCOSE,RANDOM 292 mg/dL (74-106); MAGNESIUM 1.6 mg/dL (1.8-2.4)
[2020-01-24 07:23] LABS: SGPT/ALT 20 U/L (13-61)
[2020-01-24 07:24] LABS: CREATININE 0.9 mg/dL (0.55-1.3); PHOSPHOROUS 3.6 mg/dL (2.5-4.9); SGOT/AST 50 U/L (15-37)
[2020-01-24 07:25] LABS: BILIRUBIN,TOTAL 0.3 mg/dL (0.2-1)
[2020-01-24 07:26] LABS: ALK PHOS 66 U/L (45-117)
[2020-01-24] MEDS ORDERED: MAGNESIUM OXIDE 400 MG TABLET (FP) PO ONE (09:00)
[2020-01-24] MEDS: POLYETHYLENE GLYCOL 3350 119 GM BTL PO SCH (09:44)
[2020-01-24] MEDS: ZINC SULFATE 220 MG CAPSULE (FP) PO SCH (09:45)
[2020-01-24] MEDS: FERROUS SO4 325 MG TABLET (FP) PO SCH (09:45)
[2020-01-24] MEDS: ASCORBIC ACID 500 MG TABLET (FP) PO SCH (09:45)
[2020-01-24] MEDS: METOPROLOL TARTRATE 25 MG TABLET (FP) PO SCH ×2 (09:45→21:26)
[2020-01-24] MEDS: OMEGA-3 ACID ETHYL ESTERS (FATTY-ACIDS) 1 GM CAPSULE (FP) PO SCH (09:45)
[2020-01-24] MEDS: CYANOCOBALAMIN 1,000 MCG TABLET (FP) PO SCH (09:45)
[2020-01-24] MEDS: ISOSORBIDE MONONITRATE 30 MG TAB.SR.24H (FP) PO SCH (09:45)
[2020-01-24] MEDS: MINERAL OIL/PET HY-PHL TOPICAL OINTMENT 454 GM JAR TP SCH (09:46)
[2020-01-24] MEDS: NYSTATIN POWDER 100,000 UNITS/GM - 15 GM TOPICAL POWDER TP SCH (09:47)
[2020-01-24] MEDS: ZINC OXIDE 20% TOPICAL OINTMENT 30 GM TUBE TP SCH (09:47)
[2020-01-24] MEDS: CHOLECALCIFEROL (VIT D3) 1,000 UNIT (25 MCG) TABLET PO SCH (09:47)
--- NOTE | 2020-01-24 10:00 | PN ---
Progress Note (short form) - Note Progress Note: Pt seen and examined. She fell and now has no complaints of pain in the right shoulder or either hip/pelvis. She is 1 year (01-05-19) s/p right reverse total shoulder replacement by me which has done well with no pain. x-rays Right shoulder/humerus show a long stem, cemented Reverse Total Shoulder replacement. There is no acute fracture, there are fragments consistent with post operative changes. PE RUE looks fine, no signs of acute trauma. No ecchymosis, no swelling, NVI, incision well healed, at her baseline. No pain, no tenderness. No pain in hips or pelvis. No signs of acute trauma. B/L LE at her functional baseline. Imp 74 yo F s/p recent fall, 1 year s/p R Reverse TSR, no acute fracture. No pain or injury in the right shoulder, hips, or pelvis. Rec WBAT RUE and B/L LE No specific limitations, no surgery indicated.
[2020-01-24] MEDS ORDERED: INSULIN (LEVEMIR) 100 UNITS/ML UNITS SQ ONE (11:21)
[2020-01-24] MEDS: COLLAGENASE CLOSTRIDIUM HIST. 30 GRAMS TUBE TP SCH (11:31)
[2020-01-24 13:15] LABS: IRON SERUM 28 ug/dL (50-175)
[2020-01-24 13:16] LABS: TOTAL IRON BINDING CAPACITY 276 ug/dL (250-450)
--- NOTE | 2020-01-24 15:37 | PN ---
Teaching Attending Note Name of Resident: Lazaro Albright ATTENDING PHYSICIAN STATEMENT I saw and evaluated the patient. I reviewed the resident's note and discussed the case with the resident. I agree with the resident's findings and plan as documented. SUBJECTIVE: seen at 8:30 am No fever or chills . cont to have pain in R shoulder. no abd pain , no SOB she still has discomfort wit h urination similar to her UTI in past OBJECTIVE: NAD, awake, alert, knows location , age, year . MMM, L parietal wound with caesar, and dry blood. L forehead abrasion . Cv: RRR, NO MRG Lungs: CTAB. Abd: soft, Nd, TTP in suprapubic area. Nl BS . redness in groins is better erythema, and wrinkled skin on lower legs is better . R shoulder with no erythema or edema . No tenderness to palpation . some deformity felt in upper humerus ASSESSMENT AND PLAN: 74 y/o lady with h/o HTN, HLD, CAD, hypothyroidism, DM2, venous insufficiency, uterine Ca (s/p hysterectomy), who presented after a mechanical fall. 1- Mechanical fall: R shoulder xray was read as a possible Fx. case was d/w dr. Dwyer in consult, No intervention wa recommended . no Fx was found 2- Chronic LE edema , no signs of cellulitis . 3- UTI : urine cx is neg but she still feels Sx of UTI. will give one more dose of ctx 4- Rhabdo: cont IVF . CPK improved 5- HTN: cont imdur,and lopressor 5- Dm: increase levemir and SSI 6- DVT px: heparin sq 7- L globe density: chronic , seen on Ct scan. f/u as out pt HLOC . needs rehab [facility] . hopefully CPK is better and can dc tomorrow
[2020-01-24] MEDS ORDERED: CEFTRIAXONE 1 GM in DEXTROSE 5%-WATER - 50 ML IVPB ONE (15:39)
[2020-01-24] MEDS ORDERED: DEXTROSE 5%-WATER - 50 ML IVPB ONE (16:00)
[2020-01-24] MEDS ORDERED: cefTRIAXone SODIUM 1 GM VIAL ONE (16:00)
[2020-01-24] MEDS: ACETAMINOPHEN 325 MG TABLET (FP) PO PRN (18:03)
[2020-01-24] MEDS ORDERED: MELATONIN 5 MG TABLETS PO ONE (20:17)
[2020-01-24] MEDS ORDERED: diphenhydrAMINE HCL 25 MG CAPSULE (FP) PO ONE (20:48)
[2020-01-24] MEDS: GABAPENTIN 300 MG CAPSULE PO SCH (21:26)
[2020-01-25] MEDS: HEPARIN NA (PORCINE) 5,000 UNITS/ML 1ML VIAL SQ SCH ×4 (01:31→18:55)
[2020-01-25] MEDS: INSULIN SLIDING SCALE (NOVOLOG) 1 VIAL SQ SCH ×3 (06:23→17:18)
[2020-01-25] MEDS: LEVOTHYROXINE NA 50 MCG TABLET (FP) PO SCH (06:23)
[2020-01-25] MEDS: ACETAMINOPHEN 325 MG TABLET (FP) PO PRN (06:24)
[2020-01-25] MEDS ORDERED: INSULIN (LEVEMIR) 100 UNITS/ML UNITS SQ SCH ×2 (07:00→08:45)
--- NOTE | 2020-01-25 07:00 | PN ---
Physical Exam: SUBJECTIVE: Patient seen and examined at bedside. Patient denies any acute complaints overnight. wounds on head healing well OBJECTIVE: Vital Signs Period Temp Pulse Resp BP Sys/Jacobs Pulse Ox Last 24 Hr 98.1 F-98.7 F 84-93 18-20 120-146/63-73 94-97 GENERAL: The patient is awake, alert, and fully oriented, in no acute distress. NECK: Trachea midline, full range of motion, supple. LUNGS: Breath sounds equal, clear to auscultation bilaterally, no wheezes, no crackles, no accessory muscle use. HEART: Regular rate and rhythm, S1, S2 without murmur, rub or gallop. ABDOMEN: Soft, nontender, nondistended, normoactive bowel sounds, erythema and under breasts EXTREMITIES: erythematous lower extremities, warm to touch Laboratory Results - last 24 hr 01/24/20 01/24/20 05:55 05:55 WBC 5.9 RBC 3.85 Hgb 9.3 L Hct 29.4 L MCV 76.5 L MCH 24.1 L MCHC 31.5 L RDW 19.5 H Plt Count 253 MPV 7.7 Sodium 136 Potassium 4.9 Chloride 104 Carbon Dioxide 26 Anion Gap 6 L BUN 18.3 H Creatinine 0.9 Est GFR (CKD-EPI)AfAm 71.98 Est GFR (CKD-EPI)NonAf 62.11 Random Glucose 292 H Calcium 8.8 Phosphorus 3.6 Magnesium 1.6 L Iron 28 L TIBC 276 Iron Saturation 10 L Unsaturated IBC 248 Ferritin 99.0 Total Bilirubin 0.3 AST 50 H ALT 20 Alkaline Phosphatase 66 Creatine Kinase 1234 H Creatine Kinase Index No Result Required. CK-MB (CK-2) < 1.0 Total Protein 6.0 L Albumin 2.5 L Active Medications Generic Name Dose Route Start Last Admin Trade Name Freq PRN Reason Stop Dose Admin Acetaminophen 650 mg 01/22/20 07:50 01/25/20 06:24 Tylenol - PO 650 mg Q6H PRN Administration PAIN LEVEL 6-10 Ascorbic Acid 500 mg 01/22/20 10:00 01/24/20 09:45 Vitamin C - PO 500 mg DAILY JESÚS Administration Cholecalciferol 2,000 unit 01/22/20 10:00 01/24/20 09:47 Vitamin D3 - PO 2,000 unit DAILY JESÚS Administration Collagenase 1 applic 01/22/20 10:00 01/24/20 11:31 Santyl - TP 1 applic DAILY JESÚS Administration Protocol Cyanocobalamin 1,000 mcg 01/22/20 10:00 01/24/20 09:45 Vitamin B12 - PO 1,000 mcg DAILY JESÚS Administration Emollient Ointment 1 applic 01/22/20 10:00 01/24/20 09:46 Aquaphor - TP 1 dose DAILY JESÚS Administration Ferrous Sulfate 325 mg 01/22/20 10:00 01/24/20 09:45 Feosol - PO 325 mg DAILY JESÚS Administration Gabapentin 300 mg 01/22/20 22:00 01/24/20 21:26 Neurontin - PO 300 mg HS JESÚS Administration Heparin Sodium (Porcine) 5,000 unit 01/22/20 18:00 01/25/20 01:31 Heparin - SQ 5,000 unit Q8H-IV JESÚS Administration Sodium Chloride 1,000 mls @ 75 mls/hr 01/23/20 08:30 01/24/20 08:35 Normal Saline - IV 75 mls/hr ASDIR JESÚS Administration Insulin Aspart 1 vial 01/22/20 11:00 01/25/20 06:23 Novolog Vial Sliding Scale - SQ 6 units ACHS JESÚS Administration Protocol Insulin Detemir 13 units 01/25/20 07:00 01/25/20 06:23 Levemir Vial SQ 13 units AM JESÚS Administration Isosorbide Mononitrate 30 mg 01/22/20 10:00 01/24/20 09:45 Imdur - PO 30 mg DAILY JESÚS Administration Levothyroxine Sodium 50 mcg 01/22/20 08:30 01/25/20 06:23 Synthroid - PO 50 mcg DAILY@0700 JESÚS Administration Metoprolol Tartrate 25 mg 01/22/20 10:00 01/24/20 21:26 Lopressor - PO 25 mg BID JESÚS Administration Multi-Ingredient Ointment 1 applic 01/22/20 10:00 01/24/20 09:47 Zinc Oxide TP 1 applic DAILY JESÚS Administration Nystatin 1 applic 01/23/20 11:15 01/24/20 09:47 Nystop Powder - TP 1 applic DAILY JESÚS Administration Pqjru-0-Jhpi Ethyl Esters 1 gm 01/22/20 10:00 01/24/20 09:45 Lovaza - PO 1 gm DAILY JESÚS Administration Polyethylene Glycol 17 gm 01/22/20 10:00 01/24/20 09:44 Miralax (For Daily Use) - PO 17 gm DAILY JESÚS Administration Zinc Sulfate 220 mg 01/22/20 10:00 01/24/20 09:45 Orazinc - PO 220 mg DAILY JESÚS Administration ASSESSMENT/PLAN: Ms. Montemayor is a 74F with h/o HTN, HLD, CAD, hypothyroidism, DM2, venous insufficiency, uterine Ca (s/p hysterectomy), who presented to the hospital s/p mechanical fall w a L parietal scalp laceration #Mechanical fall - Imaging did not reveal any acute fractures - Hip pain - no fracture noted on CT scan - R shoulder pain xray ordered - no fracture noted as per ortho - PT consulted #Rhabdo secondary to fall - will continue to follow patients CK levels - slightly decreased yet still elevated will continue IVF - will continue to monitor patients kidney function #Lower extremity erythema/swelling likely 2/2 chronic CHF - encourage patient to keep legs elevated - will monitor legs each day - will instruct patient to use compression stockings #Possible UTI - follow up urine cultures - continue patient on ceftriaxone - #HX of htn - continue patient on home lopressor and imdur #HX of Dm - ISS - Diabetic diet #VTE ppx - heparin sq Visit type - Emergency Visit Emergency Visit: Yes ED Registration Date: 01/22/20 Care time: The patient presented to the Emergency Department on the above date and was hospitalized for further evaluation of their emergent condition. - New Patient This patient is new to me today: No - Critical Care Critical Care patient: No - Discharge Referral Referred to [facility] Med P.C.: No - Medication Review Med list reviewed for High Risk Meds patients 65 and older: Yes ATTENDING PHYSICIAN STATEMENT I saw and evaluated the patient. I reviewed the resident's note and discussed the case with the resident. I agree with the resident's findings and plan as documented. SUBJECTIVE: OBJECTIVE: ASSESSMENT AND PLAN:
[2020-01-25 08:01] LABS: CHLORIDE 103 mmol/L (98-107); SODIUM 133 mmol/L (136-145)
[2020-01-25 08:05] LABS: ALBUMIN 2.5 g/dl (3.4-5.0); ANION GAP 7 MMOL/L (8-16); BLOOD UREA NITROGEN 17.2 mg/dL (7-18); CALCIUM 8.6 mg/dL (8.5-10.1); CO2 23 mmol/L (21-32); GLUCOSE,RANDOM 263 mg/dL (74-106); MAGNESIUM 1.8 mg/dL (1.8-2.4)
[2020-01-25 08:08] LABS: CREATININE 0.9 mg/dL (0.55-1.3); SGOT/AST 31 U/L (15-37); SGPT/ALT 18 U/L (13-61)
[2020-01-25 08:09] LABS: PHOSPHOROUS 3.6 mg/dL (2.5-4.9)
[2020-01-25 08:10] LABS: BILIRUBIN,TOTAL 0.3 mg/dL (0.2-1); TOT PROT 6.3 g/dl (6.4-8.2)
[2020-01-25 08:11] LABS: ALK PHOS 67 U/L (45-117); BASO % 0.4 % (0-2.0); EOS % 2.5 % (0-4.5); HEMATOCRIT 29.2 % (32.4-45.2); HEMOGLOBIN 9.2 GM/dL (10.7-15.3); LYMPH % 35.1 % (8-40); MCH 23.9 pg (25.7-33.7); MCHC 31.5 g/dl (32.0-36.0); MEAN PLT VOLUME 7.8 fl (7.5-11.1); MONO % 7.2 % (3.8-10.2); NEUT % 54.8 % (42.8-82.8); PLATELET COUNT 263 K/MM3 (134-434); RBC 3.84 M/mm3 (3.60-5.2); RDW 19.2 % (11.6-15.6); WHITE BLOOD COUNT 6.6 K/mm3 (4.0-10.0)
--- NOTE | 2020-01-25 09:01 | PN ---
Progress Note (short form) - Note Progress Note: Ortho Pt seen and examined. Right shoulder is slightly improved. She c/o pain with movement. Denies any hip pain at this time. Selected Entries 01/25/20 08:31 Temperature 98.2 F Pulse Rate 96 H Respiratory 18 Rate Blood Pressure 125/50 L RUE- well healed surgical incision, no swelling, erythema or ecchymosis, mild ttp, limited rom sec to pain, nvi a/p right shoulder contusion s/p reverse TSA PT eval wbat analgesics prn d/w Dr. Dwyer
[2020-01-25] MEDS ORDERED: PT OWN MED DRAWER 7, Y5N ONE (09:27)
[2020-01-25] MEDS: SODIUM CHLORIDE 1,000 ML IV SCH (09:43)
[2020-01-25] MEDS: METOPROLOL TARTRATE 25 MG TABLET (FP) PO SCH (09:47)
[2020-01-25] MEDS: FERROUS SO4 325 MG TABLET (FP) PO SCH (09:47)
[2020-01-25] MEDS: ISOSORBIDE MONONITRATE 30 MG TAB.SR.24H (FP) PO SCH (09:47)
[2020-01-25] MEDS: OMEGA-3 ACID ETHYL ESTERS (FATTY-ACIDS) 1 GM CAPSULE (FP) PO SCH (09:47)
[2020-01-25] MEDS: ZINC SULFATE 220 MG CAPSULE (FP) PO SCH (09:47)
[2020-01-25] MEDS: ASCORBIC ACID 500 MG TABLET (FP) PO SCH (09:47)
[2020-01-25] MEDS: CYANOCOBALAMIN 1,000 MCG TABLET (FP) PO SCH (09:48)
[2020-01-25] MEDS: CHOLECALCIFEROL (VIT D3) 1,000 UNIT (25 MCG) TABLET PO SCH (09:48)
[2020-01-25] MEDS: NYSTATIN POWDER 100,000 UNITS/GM - 15 GM TOPICAL POWDER TP SCH (09:49)
[2020-01-25] MEDS: COLLAGENASE CLOSTRIDIUM HIST. 30 GRAMS TUBE TP SCH (09:50)
[2020-01-25] MEDS: POLYETHYLENE GLYCOL 3350 119 GM BTL PO SCH (09:50)
[2020-01-25] MEDS: ZINC OXIDE 20% TOPICAL OINTMENT 30 GM TUBE TP SCH (09:51)
[2020-01-25] MEDS: MINERAL OIL/PET HY-PHL TOPICAL OINTMENT 454 GM JAR TP SCH (09:51)
[2020-01-25 14:28] VITALS: BP 103/37; PULSE 75; TEMP 98.5
--- NOTE | 2020-01-25 15:37 | PN ---
Teaching Attending Note Name of Resident: Lazaro Albright ATTENDING PHYSICIAN STATEMENT I saw and evaluated the patient. I reviewed the resident's note and discussed the case with the resident. I agree with the resident's findings and plan as documented. SUBJECTIVE: pain in R shoulder is better . no SOB or cough . OBJECTIVE: NAD, awake, alert, knows location , age, year . MMM, L parietal wound with caesar, and dry blood. L forehead abrasion . Cv: RRR, NO MRG Lungs: CTAB. wrinkled skin on lower legs is better . no erythema ASSESSMENT AND PLAN: 74 y/o lady with h/o HTN, HLD, CAD, hypothyroidism, DM2, venous insufficiency, uterine Ca (s/p hysterectomy), who presented after a mechanical fall. 1- Mechanical fall: need PT 2- Chronic LE edema , no signs of cellulitis . 3- UTI :received a course of CTX for cystitis 4- Rhabdo: DC IVF. she needs oral hydration . d/w her 5- HTN: cont imdur,and lopressor 5- DM: increase levemir to 15. cont SSI 6- L globe density: chronic , seen on Ct scan. f/u as out pt dispo : dc to rehab today .
== END 2020-01-25 08:00 | DRG 558 ==
LOC: JER 03:28 → JERBED 05:23 → J4S 18:32
PROVIDERS: ATTEND Internal Medicine
DX: M62.82 Rhabdomyolysis (principal); N39.0 Urinary tract infection, site not specified; I50.32 Chronic diastolic (congestive) heart failure; I10 Essential (primary) hypertension; E78.5 Hyperlipidemia, unspecified; I25.10 Atherosclerotic heart disease of native coronary artery without angina pectoris; Z85.42 Personal history of malignant neoplasm of other parts of uterus; E03.9 Hypothyroidism, unspecified; I87.2 Venous insufficiency (chronic) (peripheral); S01.01XA Laceration without foreign body of scalp, initial encounter; W19.XXXA Unspecified fall, initial encounter; Y93.9 Activity, unspecified; Y92.89 Other specified places as the place of occurrence of the external cause; Y99.9 Unspecified external cause status; R26.81 Unsteadiness on feet; E11.40 Type 2 diabetes mellitus with diabetic neuropathy, unspecified; D50.9 Iron deficiency anemia, unspecified
CPT/HCPCS: 36415; 70450-TC; 71045-TC-FY; 72125-TC; 73030-TC-RT-FY; 73523-TC-FY; 73700-TC-RT; 80048; 80053; 81003; 82550; 82553; 82728; 82962; 83540; 83550; 83735; 84100; 84443; 84484; 85025; 85027; 85610; 85730; 87086; 93005; 93010; 97116-GP; 97161-GP; 99285-25; C9803; J0131; J1644; U0003

== ENCOUNTER 2020-05-08 01:13 | Inpatient (IN) | payer OTHER ==
[2020-05-08 01:31] VITALS: BMI 33.9
[2020-05-08 03:06] LABS: CALCIUM 9.2 mg/dL (8.5-10.1)
[2020-05-08 03:07] LABS: BLOOD UREA NITROGEN 31.5 mg/dL (7-18); CO2 27 mmol/L (21-32); GLUCOSE,RANDOM 171 mg/dL (74-106); MAGNESIUM 1.7 mg/dL (1.8-2.4)
[2020-05-08 03:09] LABS: SGOT/AST 36 U/L (15-37); SGPT/ALT 13 U/L (13-61)
[2020-05-08 03:10] LABS: CREATININE 1.6 mg/dL (0.55-1.3); PHOSPHOROUS 4.2 mg/dL (2.5-4.9)
[2020-05-08 03:11] LABS: BILIRUBIN,TOTAL 0.4 mg/dL (0.2-1); TOT PROT 7.2 g/dl (6.4-8.2)
[2020-05-08 03:12] LABS: ALK PHOS 80 U/L (45-117)
[2020-05-08 03:16] LABS: HEMATOCRIT 29.5 % (32.4-45.2); HEMOGLOBIN 9.2 GM/dL (10.7-15.3); MCH 23.8 pg (25.7-33.7); MCHC 31.2 g/dl (32.0-36.0); MEAN CELL VOLUME 76.5 fl (80-96); MEAN PLT VOLUME 8.1 fl (7.5-11.1); PLATELET COUNT 343 K/MM3 (134-434); RBC 3.85 M/mm3 (3.60-5.2); RDW 18.5 % (11.6-15.6)
[2020-05-08 03:22] LABS: WHITE BLOOD COUNT 13.5 K/mm3 (4.0-10.0)
[2020-05-08 03:27] LABS: ANION GAP 3 MMOL/L (8-16); CHLORIDE 108 mmol/L (98-107); SODIUM 138 mmol/L (136-145)
[2020-05-08] MEDS ORDERED: SODIUM CHLORIDE 0.9% 500 ML INFUS.BAG IV ONE (03:36)
[2020-05-08] MEDS ORDERED: CLINDAMYCIN 600MG PREMIX IVPB 600 MG/50 ML BAG IVPB ONE ×4 (03:36→18:48)
[2020-05-08] MEDS ORDERED: ACETAMINOPHEN 1000 MG/100 ML VIAL (NON FORMULARY) IVPB ONE (03:37)
[2020-05-08 03:43] LABS: POTASSIUM 7.7 mmol/L (3.5-5.1)
[2020-05-08 04:07] LABS: ANISOCYTOSIS 3+; MACROCYTOSIS 0; PLATELET ESTIMATE NORMAL
[2020-05-08 04:34] LABS: EPI CELLS 32 /uL (0-25.1); HYALINE CASTS 3 /uL (0-3.1); PH,URINE 5.5 (5.0-8.0); URINE APPEARANCE CLEAR; URINE BACTERIA 33 /uL (0-1359); URINE BILIRUBIN NEGATIVE (NEGATIVE); URINE COLOR YELLOW; URINE GLUCOSE (UA) TRACE (NEGATIVE); URINE KETONE NEGATIVE (NEGATIVE); URINE LEUK ESTERASE 2+ (NEGATIVE); URINE NITRITE NEGATIVE (NEGATIVE); URINE PROTEIN 1+ (NEGATIVE); URINE RBC 223 /uL (0-23.9); URINE WBC 426 /uL (0-25.8)
[2020-05-08] MEDS ORDERED: ACETAMINOPHEN INJECTION 100 ML IVPB ONE (04:49)
[2020-05-08] MEDS ORDERED: MECLIZINE HCL 25 MG TABLET (FP) PO ONE (06:07)
[2020-05-08] MEDS ORDERED: MECLIZINE HCL 25 MG TABLET (FP) ONE (06:26)
[2020-05-08] MEDS ORDERED: CEFTRIAXONE 1 GM in DEXTROSE 5%-WATER - 100 ML IVPB ONE (06:32)
[2020-05-08 06:43] LABS: CALCIUM 8.6 mg/dL (8.5-10.1)
[2020-05-08 06:44] LABS: ALBUMIN 2.7 g/dl (3.4-5.0); BLOOD UREA NITROGEN 32.7 mg/dL (7-18)
[2020-05-08 06:47] LABS: CREATININE 1.4 mg/dL (0.55-1.3)
[2020-05-08 06:48] LABS: BILIRUBIN,TOTAL 0.3 mg/dL (0.2-1); TOT PROT 6.6 g/dl (6.4-8.2)
[2020-05-08 07:16] LABS: POTASSIUM 7.2 mmol/L (3.5-5.1)
[2020-05-08] MEDS ORDERED: CEFTRIAXONE 1 GM/50 ML BAG ONE (07:32)
[2020-05-08] MEDS ORDERED: ACETAMINOPHEN 325 MG TABLET (FP) PO PRN (09:21)
[2020-05-08 09:28] LABS: ALBUMIN 2.7 g/dl (3.4-5.0); BLOOD UREA NITROGEN 31.4 mg/dL (7-18); CALCIUM 8.9 mg/dL (8.5-10.1)
[2020-05-08] MEDS ORDERED: SODIUM CHLORIDE 1,000 ML IV SCH (09:30)
[2020-05-08 09:31] LABS: CREATININE 1.4 mg/dL (0.55-1.3)
[2020-05-08 09:32] LABS: BILIRUBIN,TOTAL 0.3 mg/dL (0.2-1)
[2020-05-08 09:33] LABS: TOT PROT 6.2 g/dl (6.4-8.2)
[2020-05-08] MEDS ORDERED: GABAPENTIN 300 MG CAPSULE PO PRN (10:02)
[2020-05-08 10:03] LABS: POTASSIUM 7.1 mmol/L (3.5-5.1)
[2020-05-08] MEDS ORDERED: SODIUM BICARBONATE 8.4% 50 MEQ/50 ML DISP.SYRIN IVPUSH ONE (10:07)
[2020-05-08] MEDS ORDERED: SODIUM ZIRCONIUM CYCLOSILICATE (LOKELMA) 5 GM PACKET PO ONE ×2 (10:07→16:08)
[2020-05-08] MEDS ORDERED: DEXTROSE 50%-WATER - 25 GM/50 ML VIAL IVPUSH ONE ×2 (10:08→16:05)
[2020-05-08] MEDS ORDERED: INSULIN REGULAR HUMAN 100 UNITS/ML *VIAL IVPUSH ONE ×2 (10:08→16:04)
[2020-05-08] MEDS ORDERED: RAMIPRIL 2.5 MG CAPSULE PO SCH (10:15)
[2020-05-08] MEDS ORDERED: CALCIUM GLUCONATE 10% - 1,000 MG/10 ML VIAL IVPUSH ONE ×2 (10:20→16:04)
[2020-05-08] MEDS ORDERED: SODIUM CHLORIDE 1,000 ML IV STA (10:26)
[2020-05-08] MEDS ORDERED: CALCIUM GLUCONATE 10% - 1,000 MG/10 ML VIAL ONE (10:52)
[2020-05-08] MEDS ORDERED: METOPROLOL TARTRATE 25 MG TABLET (FP) ONE (10:52)
[2020-05-08] MEDS ORDERED: LEVOTHYROXINE NA 25 MCG TABLET (FP) ONE (10:53)
[2020-05-08] MEDS ORDERED: SODIUM BICARBONATE 8.4% - 50 ML ONE (10:53)
[2020-05-08] MEDS ORDERED: DEXTROSE 50%-WATER 25 GM/50 ML DISP.SYRIN ONE ×2 (10:53→16:21)
[2020-05-08] MEDS ORDERED: FERROUS SO4 325 MG TABLET (FP) ONE (10:53)
[2020-05-08] MEDS ORDERED: HEPARIN NA (PORCINE) 5,000 UNITS/ML 1ML VIAL ONE ×2 (10:54→14:21)
[2020-05-08] MEDS: INSULIN SLIDING SCALE (NOVOLOG) 1 VIAL SQ SCH ×3 (11:19→22:41)
[2020-05-08] MEDS: FERROUS SO4 325 MG TABLET (FP) PO SCH (11:21)
[2020-05-08] MEDS: POLYETHYLENE GLYCOL 3350 119 GM BTL PO SCH (11:21)
[2020-05-08] MEDS: METOPROLOL TARTRATE 25 MG TABLET (FP) PO SCH ×2 (11:21→22:41)
[2020-05-08] MEDS: LEVOTHYROXINE NA 75 MCG TABLET (FP) PO SCH (11:21)
[2020-05-08] MEDS: HEPARIN NA (PORCINE) 5,000 UNITS/ML 1ML VIAL SQ SCH ×3 (11:22→22:40)
[2020-05-08] MEDS: FENOFIBRIC ACID 135 MG CAP PO SCH (11:49)
[2020-05-08] MEDS: ZINC OXIDE 20% TOPICAL OINTMENT 30 GM TUBE TP SCH (11:50)
[2020-05-08] MEDS: MINERAL OIL/PET HY-PHL TOPICAL OINTMENT 454 GM JAR TP SCH (11:50)
[2020-05-08] MEDS: ISOSORBIDE MONONITRATE 30 MG TAB.SR.24H (FP) PO SCH (11:50)
[2020-05-08] MEDS: CLINDAMYCIN 600MG PREMIX IVPB 600 MG/50 ML BAG IVPB SCH ×3 (12:06→23:41)
[2020-05-08] MEDS ORDERED: SODIUM ZIRCONIUM CYCLOSILICATE (LOKELMA) 5 GM PACKET ONE ×2 (12:33→17:04)
[2020-05-08 14:29] LABS: CALCIUM 9.2 mg/dL (8.5-10.1)
[2020-05-08 14:30] LABS: ALBUMIN 2.9 g/dl (3.4-5.0); BLOOD UREA NITROGEN 25.9 mg/dL (7-18)
[2020-05-08 14:33] LABS: CREATININE 1.3 mg/dL (0.55-1.3)
[2020-05-08 14:35] LABS: BILIRUBIN,TOTAL 0.3 mg/dL (0.2-1); TOT PROT 6.6 g/dl (6.4-8.2)
[2020-05-08] MEDS: SODIUM CHLORIDE 0.45% 1,000 ML IV SCH (14:43)
[2020-05-08] MEDS ORDERED: ACETAMINOPHEN 325 MG TABLET (FP) ONE (14:44)
[2020-05-08] MEDS ORDERED: traMADol HCL 50 MG TABLET ONE (14:45)
[2020-05-08] MEDS: traMADol HCL 50 MG TABLET PO PRN (14:49)
[2020-05-08 15:19] LABS: POTASSIUM 6.7 mmol/L (3.5-5.1)
[2020-05-08] MEDS: ATORVASTATIN CA 20 MG TABLET (FP) PO SCH (22:41)
[2020-05-09] MEDS: CLINDAMYCIN 600MG PREMIX IVPB 600 MG/50 ML BAG IVPB SCH ×2 (05:53→12:47)
[2020-05-09] MEDS: HEPARIN NA (PORCINE) 5,000 UNITS/ML 1ML VIAL SQ SCH ×3 (05:54→21:14)
[2020-05-09] MEDS: traMADol HCL 50 MG TABLET PO PRN (06:00)
[2020-05-09] MEDS: LEVOTHYROXINE NA 75 MCG TABLET (FP) PO SCH (06:01)
[2020-05-09] MEDS: INSULIN SLIDING SCALE (NOVOLOG) 1 VIAL SQ SCH ×4 (06:01→21:16)
[2020-05-09 09:20] LABS: BASO % 0.5 % (0-2.0); EOS % 3.2 % (0-4.5); HEMATOCRIT 25.5 % (32.4-45.2); HEMOGLOBIN 8.3 GM/dL (10.7-15.3); LYMPH % 28.3 % (8-40); MCH 24.5 pg (25.7-33.7); MCHC 32.4 g/dl (32.0-36.0); MEAN CELL VOLUME 75.6 fl (80-96); MEAN PLT VOLUME 7.6 fl (7.5-11.1); MONO % 7.5 % (3.8-10.2); NEUT % 60.5 % (42.8-82.8); PLATELET COUNT 264 K/MM3 (134-434); RBC 3.38 M/mm3 (3.60-5.2); RDW 18.5 % (11.6-15.6); RETICULOCYTES 2.24 % (0.5-1.5); WHITE BLOOD COUNT 6.5 K/mm3 (4.0-10.0)
[2020-05-09] MEDS: SODIUM CHLORIDE 0.45% 1,000 ML IV SCH ×2 (09:36→14:14)
[2020-05-09 09:37] LABS: INR 1.2 (0.83-1.09); PROTHROMBIN TIME (PATIENT) 14.4 SEC (9.7-13.0)
[2020-05-09] MEDS: FERROUS SO4 325 MG TABLET (FP) PO SCH (09:45)
[2020-05-09] MEDS: METOPROLOL TARTRATE 25 MG TABLET (FP) PO SCH ×2 (09:45→21:15)
[2020-05-09] MEDS ORDERED: CEFTRIAXONE 1 GM in DEXTROSE 5%-WATER - 50 ML IVPB SCH (10:00)
[2020-05-09] MEDS ORDERED: SODIUM ZIRCONIUM CYCLOSILICATE (LOKELMA) 5 GM PACKET PO ONE (10:07)
[2020-05-09 10:24] LABS: ALBUMIN 2.5 g/dl (3.4-5.0); BLOOD UREA NITROGEN 20.1 mg/dL (7-18); CALCIUM 8.7 mg/dL (8.5-10.1)
[2020-05-09 10:27] LABS: MAGNESIUM 1.5 mg/dL (1.8-2.4); PHOSPHOROUS 3.4 mg/dL (2.5-4.9)
[2020-05-09 10:29] LABS: BILIRUBIN,TOTAL 0.4 mg/dL (0.2-1); CREATININE 1.2 mg/dL (0.55-1.3); TOT PROT 6.1 g/dl (6.4-8.2)
[2020-05-09] MEDS: ISOSORBIDE MONONITRATE 30 MG TAB.SR.24H (FP) PO SCH (10:44)
[2020-05-09] MEDS: FENOFIBRIC ACID 135 MG CAP PO SCH (10:44)
[2020-05-09] MEDS: POLYETHYLENE GLYCOL 3350 119 GM BTL PO SCH (10:44)
[2020-05-09 11:02] LABS: POTASSIUM 6.1 mmol/L (3.5-5.1)
[2020-05-09] MEDS ORDERED: FUROSEMIDE 40 MG TABLET (FP) PO ONE (11:10)
[2020-05-09] MEDS ORDERED: SODIUM BICARBONATE 8.4% 50 MEQ/50 ML DISP.SYRIN IVPUSH ONE (11:10)
[2020-05-09] MEDS ORDERED: SODIUM CHLORIDE 500 ML IV STA (11:10)
[2020-05-09] MEDS ORDERED: SODIUM ZIRCONIUM CYCLOSILICATE (LOKELMA) 5 GM PACKET PO SCH (11:15)
[2020-05-09] MEDS ORDERED: SODIUM ZIRCONIUM CYCLOSILICATE (LOKELMA) 10 GM PACKET PO SCH (11:44)
[2020-05-09] MEDS ORDERED: INSULIN SLIDING SCALE (NOVOLOG) 1 VIAL SQ ONE (12:27)
[2020-05-09] MEDS: ZINC OXIDE 20% TOPICAL OINTMENT 30 GM TUBE TP SCH (14:13)
[2020-05-09] MEDS: MINERAL OIL/PET HY-PHL TOPICAL OINTMENT 454 GM JAR TP SCH (14:13)
[2020-05-09] MEDS: SODIUM ZIRCONIUM CYCLOSILICATE (LOKELMA) 10 GM PACKET PO SCH ×2 (14:14→23:23)
[2020-05-09] MEDS ORDERED: MAGNESIUM SULF 50% (8.12 MEQ/2 ML-1 GM VIAL) IVPB ONE (14:54)
[2020-05-09] MEDS: CEFAZOLIN 1 GM/D5W 1 GM/50 ML BAG IVPB SCH ×2 (14:54→18:22)
[2020-05-09 21:14] LABS: POTASSIUM 5.3 mmol/L (3.5-5.1)
[2020-05-09 21:15] LABS: CALCIUM 8.7 mg/dL (8.5-10.1)
[2020-05-09] MEDS: ATORVASTATIN CA 20 MG TABLET (FP) PO SCH (21:15)
[2020-05-09 21:16] LABS: BLOOD UREA NITROGEN 15.2 mg/dL (7-18)
[2020-05-09 21:19] LABS: CREATININE 1.1 mg/dL (0.55-1.3)
[2020-05-10] MEDS: traMADol HCL 50 MG TABLET PO PRN (01:07)
[2020-05-10] MEDS: CEFAZOLIN 1 GM/D5W 1 GM/50 ML BAG IVPB SCH ×3 (01:09→17:22)
[2020-05-10] MEDS: HEPARIN NA (PORCINE) 5,000 UNITS/ML 1ML VIAL SQ SCH ×3 (05:24→21:04)
[2020-05-10] MEDS: INSULIN SLIDING SCALE (NOVOLOG) 1 VIAL SQ SCH ×4 (06:09→21:03)
[2020-05-10] MEDS: LEVOTHYROXINE NA 75 MCG TABLET (FP) PO SCH (06:10)
[2020-05-10 08:40] LABS: BASO % 0.6 % (0-2.0); EOS % 1.8 % (0-4.5); HEMATOCRIT 26.8 % (32.4-45.2); HEMOGLOBIN 8.9 GM/dL (10.7-15.3); LYMPH % 21.4 % (8-40); MCH 24.7 pg (25.7-33.7); MCHC 33.2 g/dl (32.0-36.0); MEAN CELL VOLUME 74.4 fl (80-96); MEAN PLT VOLUME 7.2 fl (7.5-11.1); NEUT % 68.2 % (42.8-82.8); PLATELET COUNT 284 K/MM3 (134-434); RDW 18.2 % (11.6-15.6); WHITE BLOOD COUNT 6.9 K/mm3 (4.0-10.0)
[2020-05-10 09:05] LABS: POTASSIUM 4.3 mmol/L (3.5-5.1)
[2020-05-10 09:09] LABS: CALCIUM 8.5 mg/dL (8.5-10.1)
[2020-05-10 09:10] LABS: ALBUMIN 2.5 g/dl (3.4-5.0); BLOOD UREA NITROGEN 12.3 mg/dL (7-18); MAGNESIUM 1.5 mg/dL (1.8-2.4)
[2020-05-10 09:13] LABS: PHOSPHOROUS 3.6 mg/dL (2.5-4.9)
[2020-05-10 09:14] LABS: BILIRUBIN,TOTAL 0.7 mg/dL (0.2-1); TOT PROT 6.3 g/dl (6.4-8.2)
[2020-05-10] MEDS: METOPROLOL TARTRATE 25 MG TABLET (FP) PO SCH ×2 (10:31→21:04)
[2020-05-10] MEDS: FERROUS SO4 325 MG TABLET (FP) PO SCH (10:31)
[2020-05-10] MEDS: POLYETHYLENE GLYCOL 3350 119 GM BTL PO SCH (10:32)
[2020-05-10] MEDS: ISOSORBIDE MONONITRATE 30 MG TAB.SR.24H (FP) PO SCH (10:32)
[2020-05-10] MEDS: FENOFIBRIC ACID 135 MG CAP PO SCH (10:33)
[2020-05-10] MEDS: ZINC OXIDE 20% TOPICAL OINTMENT 30 GM TUBE TP SCH (10:33)
[2020-05-10] MEDS: MINERAL OIL/PET HY-PHL TOPICAL OINTMENT 454 GM JAR TP SCH (10:33)
[2020-05-10] MEDS ORDERED: ONDANSETRON 4 MG/2 ML VIAL IVPUSH ONE (12:51)
[2020-05-10] MEDS: SODIUM CHLORIDE 0.45% 1,000 ML IV SCH (13:36)
[2020-05-10] MEDS ORDERED: MAGNESIUM OXIDE 400 MG TABLET (FP) PO ONE (14:37)
[2020-05-10] MEDS ORDERED: MAGNESIUM SULF 50% (8.12 MEQ/2 ML-1 GM VIAL) IVPB ONE ×2 (17:43→18:45)
[2020-05-10] MEDS: ATORVASTATIN CA 20 MG TABLET (FP) PO SCH (21:04)
[2020-05-10] MEDS: GABAPENTIN 300 MG CAPSULE PO SCH (21:04)
[2020-05-11] MEDS: CEFAZOLIN 1 GM/D5W 1 GM/50 ML BAG IVPB SCH ×3 (02:02→17:29)
[2020-05-11] MEDS ORDERED: ASPIRIN 81 MG CHEWABLE TABLETS ONE (03:10)
[2020-05-11] MEDS: HEPARIN NA (PORCINE) 5,000 UNITS/ML 1ML VIAL SQ SCH ×3 (06:17→21:57)
[2020-05-11] MEDS: INSULIN SLIDING SCALE (NOVOLOG) 1 VIAL SQ SCH ×4 (06:18→21:58)
[2020-05-11] MEDS: LEVOTHYROXINE NA 75 MCG TABLET (FP) PO SCH (06:18)
[2020-05-11] MEDS: FERROUS SO4 325 MG TABLET (FP) PO SCH (10:57)
[2020-05-11] MEDS: ISOSORBIDE MONONITRATE 30 MG TAB.SR.24H (FP) PO SCH (10:58)
[2020-05-11] MEDS: FENOFIBRIC ACID 135 MG CAP PO SCH (10:58)
[2020-05-11] MEDS: ZINC OXIDE 20% TOPICAL OINTMENT 30 GM TUBE TP SCH (10:58)
[2020-05-11] MEDS: GABAPENTIN 300 MG CAPSULE PO SCH ×2 (10:58→21:58)
[2020-05-11] MEDS: METOPROLOL TARTRATE 25 MG TABLET (FP) PO SCH ×2 (10:58→21:58)
[2020-05-11] MEDS: POLYETHYLENE GLYCOL 3350 119 GM BTL PO SCH (10:59)
[2020-05-11 12:46] LABS: HEMATOCRIT 29.6 % (32.4-45.2); HEMOGLOBIN 9.6 GM/dL (10.7-15.3); MCH 24.4 pg (25.7-33.7); MCHC 32.5 g/dl (32.0-36.0); MEAN CELL VOLUME 75.1 fl (80-96); MEAN PLT VOLUME 7.3 fl (7.5-11.1); PLATELET COUNT 286 K/MM3 (134-434); RBC 3.94 M/mm3 (3.60-5.2); RDW 18.4 % (11.6-15.6); WHITE BLOOD COUNT 5.6 K/mm3 (4.0-10.0)
[2020-05-11 13:03] LABS: POTASSIUM 4.1 mmol/L (3.5-5.1)
[2020-05-11 13:11] LABS: ALBUMIN 2.6 g/dl (3.4-5.0); BLOOD UREA NITROGEN 18.1 mg/dL (7-18); CALCIUM 8.5 mg/dL (8.5-10.1); MAGNESIUM 1.9 mg/dL (1.8-2.4)
[2020-05-11 13:15] LABS: BILIRUBIN,TOTAL 0.3 mg/dL (0.2-1); TOT PROT 6.6 g/dl (6.4-8.2)
[2020-05-11] MEDS: MINERAL OIL/PET HY-PHL TOPICAL OINTMENT 454 GM JAR TP SCH (13:51)
[2020-05-11] MEDS: COLLAGENASE CLOSTRIDIUM HIST. 30 GRAMS TUBE TP SCH (13:51)
[2020-05-11] MEDS: ATORVASTATIN CA 20 MG TABLET (FP) PO SCH (21:57)
[2020-05-12] MEDS: CEFAZOLIN 1 GM/D5W 1 GM/50 ML BAG IVPB SCH ×3 (01:21→17:15)
[2020-05-12] MEDS: INSULIN SLIDING SCALE (NOVOLOG) 1 VIAL SQ SCH ×4 (06:11→21:45)
[2020-05-12] MEDS: HEPARIN NA (PORCINE) 5,000 UNITS/ML 1ML VIAL SQ SCH ×3 (06:11→21:41)
[2020-05-12] MEDS: LEVOTHYROXINE NA 75 MCG TABLET (FP) PO SCH (06:12)
[2020-05-12] MEDS: ISOSORBIDE MONONITRATE 30 MG TAB.SR.24H (FP) PO SCH (11:09)
[2020-05-12] MEDS: GABAPENTIN 300 MG CAPSULE PO SCH ×2 (11:09→21:44)
[2020-05-12] MEDS: FERROUS SO4 325 MG TABLET (FP) PO SCH (11:10)
[2020-05-12] MEDS: FENOFIBRIC ACID 135 MG CAP PO SCH (11:10)
[2020-05-12] MEDS: METOPROLOL TARTRATE 25 MG TABLET (FP) PO SCH ×2 (11:10→21:44)
[2020-05-12] MEDS: MULTIVITAMINS (DAILY MVI) TABLET (FP) PO SCH (11:10)
[2020-05-12] MEDS: POLYETHYLENE GLYCOL 3350 119 GM BTL PO SCH (11:11)
[2020-05-12] MEDS: ZINC OXIDE 20% TOPICAL OINTMENT 30 GM TUBE TP SCH (11:11)
[2020-05-12] MEDS: MINERAL OIL/PET HY-PHL TOPICAL OINTMENT 454 GM JAR TP SCH (14:13)
[2020-05-12] MEDS: COLLAGENASE CLOSTRIDIUM HIST. 30 GRAMS TUBE TP SCH (14:14)
[2020-05-12] MEDS: SENNOSIDES 8.6MG TABLET (FP) PO SCH (21:44)
[2020-05-12] MEDS: ATORVASTATIN CA 20 MG TABLET (FP) PO SCH (21:44)
[2020-05-12] MEDS: MELATONIN 5 MG TABLETS PO PRN (22:16)
[2020-05-13] MEDS: CEFAZOLIN 1 GM/D5W 1 GM/50 ML BAG IVPB SCH ×3 (02:35→17:31)
[2020-05-13] MEDS: LEVOTHYROXINE NA 75 MCG TABLET (FP) PO SCH ×2 (07:48→08:27)
[2020-05-13] MEDS: INSULIN SLIDING SCALE (NOVOLOG) 1 VIAL SQ SCH ×5 (07:48→21:24)
[2020-05-13] MEDS: HEPARIN NA (PORCINE) 5,000 UNITS/ML 1ML VIAL SQ SCH ×3 (08:26→21:22)
[2020-05-13 08:53] LABS: BASO % 0.8 % (0-2.0); EOS % 3.2 % (0-4.5); HEMATOCRIT 30.5 % (32.4-45.2); LYMPH % 35.1 % (8-40); MCH 24.8 pg (25.7-33.7); MCHC 32.9 g/dl (32.0-36.0); MEAN CELL VOLUME 75.5 fl (80-96); MEAN PLT VOLUME 7.4 fl (7.5-11.1); MONO % 8.7 % (3.8-10.2); NEUT % 52.2 % (42.8-82.8); PLATELET COUNT 257 K/MM3 (134-434); RBC 4.04 M/mm3 (3.60-5.2); WHITE BLOOD COUNT 6.1 K/mm3 (4.0-10.0)
[2020-05-13 09:39] LABS: POTASSIUM 4.6 mmol/L (3.5-5.1)
[2020-05-13 09:56] LABS: CALCIUM 8.9 mg/dL (8.5-10.1)
[2020-05-13 09:57] LABS: BLOOD UREA NITROGEN 23.4 mg/dL (7-18)
[2020-05-13 09:59] LABS: CREATININE 1.1 mg/dL (0.55-1.3)
[2020-05-13] MEDS: METOPROLOL TARTRATE 25 MG TABLET (FP) PO SCH ×2 (10:17→21:24)
[2020-05-13] MEDS: FENOFIBRIC ACID 135 MG CAP PO SCH (10:17)
[2020-05-13] MEDS: GABAPENTIN 300 MG CAPSULE PO SCH ×2 (10:17→21:24)
[2020-05-13] MEDS: FERROUS SO4 325 MG TABLET (FP) PO SCH (10:17)
[2020-05-13] MEDS: MULTIVITAMINS (DAILY MVI) TABLET (FP) PO SCH (10:17)
[2020-05-13] MEDS: ISOSORBIDE MONONITRATE 30 MG TAB.SR.24H (FP) PO SCH (10:17)
[2020-05-13] MEDS: POLYETHYLENE GLYCOL 3350 119 GM BTL PO SCH (10:23)
[2020-05-13] MEDS: ZINC OXIDE 20% TOPICAL OINTMENT 30 GM TUBE TP SCH (12:15)
[2020-05-13 12:23] LABS: INR 1.15 (0.83-1.09); PROTHROMBIN TIME (PATIENT) 13.9 SEC (9.7-13.0)
[2020-05-13] MEDS: COLLAGENASE CLOSTRIDIUM HIST. 30 GRAMS TUBE TP SCH (15:26)
[2020-05-13] MEDS: MINERAL OIL/PET HY-PHL TOPICAL OINTMENT 454 GM JAR TP SCH (15:26)
[2020-05-13] MEDS: BENZOCAINE/MENTH/CETYLPYRD CL 1 EACH LOZENGE MM PRN ×2 (17:32→23:18)
[2020-05-13] MEDS ORDERED: IRON SUCROSE INJECTION 200 MG in SODIUM CHLORIDE 90 ML IVPB ONE (18:00)
[2020-05-13] MEDS: INSULIN (LEVEMIR) 100 UNITS/ML UNITS SQ SCH (21:23)
[2020-05-13] MEDS: ATORVASTATIN CA 20 MG TABLET (FP) PO SCH (21:24)
[2020-05-13] MEDS: MELATONIN 5 MG TABLETS PO PRN (21:25)
[2020-05-13] MEDS: SENNOSIDES 8.6MG TABLET (FP) PO SCH (21:25)
[2020-05-14] MEDS: CEFAZOLIN 1 GM/D5W 1 GM/50 ML BAG IVPB SCH ×4 (02:03→18:02)
[2020-05-14] MEDS: HEPARIN NA (PORCINE) 5,000 UNITS/ML 1ML VIAL SQ SCH ×3 (05:48→21:29)
[2020-05-14] MEDS: LEVOTHYROXINE NA 75 MCG TABLET (FP) PO SCH (07:09)
[2020-05-14] MEDS: INSULIN (LEVEMIR) 100 UNITS/ML UNITS SQ SCH ×2 (08:10→21:30)
[2020-05-14] MEDS: INSULIN SLIDING SCALE (NOVOLOG) 1 VIAL SQ SCH ×5 (08:10→21:29)
[2020-05-14 08:57] LABS: BASO % 0.7 % (0-2.0); EOS % 3.1 % (0-4.5); HEMATOCRIT 31.6 % (32.4-45.2); HEMOGLOBIN 10.1 GM/dL (10.7-15.3); LYMPH % 33.6 % (8-40); MCH 24.1 pg (25.7-33.7); MCHC 31.8 g/dl (32.0-36.0); MEAN CELL VOLUME 75.6 fl (80-96); MEAN PLT VOLUME 7.6 fl (7.5-11.1); MONO % 8.4 % (3.8-10.2); NEUT % 54.2 % (42.8-82.8); PLATELET COUNT 250 K/MM3 (134-434); RBC 4.18 M/mm3 (3.60-5.2); RDW 17.9 % (11.6-15.6); WHITE BLOOD COUNT 6.7 K/mm3 (4.0-10.0)
[2020-05-14 09:16] LABS: INR 1.08 (0.83-1.09); PROTHROMBIN TIME (PATIENT) 13.2 SEC (9.7-13.0)
[2020-05-14 09:18] LABS: ACTIVATED PTT 28.8 SECONDS (25.2-36.5)
[2020-05-14 09:26] LABS: POTASSIUM 4.8 mmol/L (3.5-5.1)
[2020-05-14] MEDS ORDERED: LIDOCAINE HCL 1%, 10 MG/ML (20ML VIAL) ONE (09:46)
[2020-05-14] MEDS: ISOSORBIDE MONONITRATE 30 MG TAB.SR.24H (FP) PO SCH (10:00)
[2020-05-14] MEDS: ZINC OXIDE 20% TOPICAL OINTMENT 30 GM TUBE TP SCH ×2 (10:00→14:01)
[2020-05-14] MEDS: MULTIVITAMINS (DAILY MVI) TABLET (FP) PO SCH (10:00)
[2020-05-14] MEDS: FERROUS SO4 325 MG TABLET (FP) PO SCH (10:00)
[2020-05-14] MEDS: FENOFIBRIC ACID 135 MG CAP PO SCH (10:00)
[2020-05-14] MEDS: GABAPENTIN 300 MG CAPSULE PO SCH ×2 (10:00→21:32)
[2020-05-14] MEDS: METOPROLOL TARTRATE 25 MG TABLET (FP) PO SCH ×2 (10:00→21:29)
[2020-05-14] MEDS: MINERAL OIL/PET HY-PHL TOPICAL OINTMENT 454 GM JAR TP SCH (10:00)
[2020-05-14] MEDS: POLYETHYLENE GLYCOL 3350 119 GM BTL PO SCH (10:00)
[2020-05-14] MEDS ORDERED: PROPOFOL 20 ML ONE ×3 (10:09)
[2020-05-14 10:13] LABS: ALBUMIN 2.7 g/dl (3.4-5.0)
[2020-05-14 10:15] LABS: BLOOD UREA NITROGEN 26.6 mg/dL (7-18)
[2020-05-14 10:16] LABS: CREATININE 1.1 mg/dL (0.55-1.3); PHOSPHOROUS 3.5 mg/dL (2.5-4.9)
[2020-05-14 10:17] LABS: BILIRUBIN,TOTAL 0.6 mg/dL (0.2-1); TOT PROT 6.4 g/dl (6.4-8.2)
[2020-05-14] MEDS ORDERED: MIDAZOLAM HCL 2 MG/2 ML SINGLE DOSE VIAL ONE ×2 (10:20)
[2020-05-14] MEDS ORDERED: LIDO 2%/EPI 1:200000 PRESRVFRE (20 ML SDVIAL) PNB ONE (10:31)
[2020-05-14] MEDS ORDERED: LIDOCAINE HCL 1%, 10 MG/ML (20ML VIAL) SNB ONE (10:31)
[2020-05-14] MEDS ORDERED: ONDANSETRON 4 MG/2 ML VIAL IVPUSH PRN (10:54)
[2020-05-14] MEDS ORDERED: ACETAMINOPHEN 325 MG TABLET (FP) PO PRN (11:12)
[2020-05-14] MEDS ORDERED: BENZOCAINE/MENTH/CETYLPYRD CL 1 EACH LOZENGE MM PRN (11:12)
[2020-05-14] MEDS ORDERED: ceFAZolin SODIUM 1 GM VIAL ONE (11:14)
[2020-05-14] MEDS ORDERED: ceFAZolin SODIUM 1 GM VIAL IVPB ONE (11:15)
[2020-05-14] MEDS: COLLAGENASE CLOSTRIDIUM HIST. 30 GRAMS TUBE TP SCH (12:50)
[2020-05-14] MEDS: ATORVASTATIN CA 20 MG TABLET (FP) PO SCH (21:29)
[2020-05-14] MEDS: SENNOSIDES 8.6MG TABLET (FP) PO SCH (21:29)
[2020-05-14] MEDS ORDERED: MELATONIN 5 MG TABLETS PO PRN (22:00)
[2020-05-15] MEDS: CEFAZOLIN 1 GM/D5W 1 GM/50 ML BAG IVPB SCH ×3 (01:09→18:26)
[2020-05-15] MEDS: INSULIN (LEVEMIR) 100 UNITS/ML UNITS SQ SCH ×2 (06:01→22:04)
[2020-05-15] MEDS: INSULIN SLIDING SCALE (NOVOLOG) 1 VIAL SQ SCH ×4 (06:02→22:05)
[2020-05-15] MEDS: HEPARIN NA (PORCINE) 5,000 UNITS/ML 1ML VIAL SQ SCH ×3 (06:05→22:04)
[2020-05-15] MEDS: LEVOTHYROXINE NA 75 MCG TABLET (FP) PO SCH (06:06)
[2020-05-15 08:58] LABS: EOS % 5.2 % (0-4.5); HEMOGLOBIN 10.3 GM/dL (10.7-15.3); LYMPH % 36.4 % (8-40); MCH 24.5 pg (25.7-33.7); MCHC 32.3 g/dl (32.0-36.0); MEAN CELL VOLUME 75.8 fl (80-96); MEAN PLT VOLUME 7.7 fl (7.5-11.1); MONO % 6.5 % (3.8-10.2); NEUT % 51.9 % (42.8-82.8); PLATELET COUNT 248 K/MM3 (134-434); RBC 4.22 M/mm3 (3.60-5.2); RDW 18.3 % (11.6-15.6); WHITE BLOOD COUNT 8.8 K/mm3 (4.0-10.0)
[2020-05-15] MEDS: FERROUS SO4 325 MG TABLET (FP) PO SCH (09:03)
[2020-05-15] MEDS: METOPROLOL TARTRATE 25 MG TABLET (FP) PO SCH ×2 (09:04→22:05)
[2020-05-15] MEDS: MULTIVITAMINS (DAILY MVI) TABLET (FP) PO SCH (09:04)
[2020-05-15] MEDS: ISOSORBIDE MONONITRATE 30 MG TAB.SR.24H (FP) PO SCH (09:05)
[2020-05-15] MEDS: FENOFIBRIC ACID 135 MG CAP PO SCH (09:06)
[2020-05-15] MEDS: GABAPENTIN 300 MG CAPSULE PO SCH ×2 (09:06→22:05)
[2020-05-15] MEDS: ZINC OXIDE 20% TOPICAL OINTMENT 30 GM TUBE TP SCH (09:12)
[2020-05-15] MEDS: MINERAL OIL/PET HY-PHL TOPICAL OINTMENT 454 GM JAR TP SCH (09:13)
[2020-05-15] MEDS: POLYETHYLENE GLYCOL 3350 119 GM BTL PO SCH ×2 (09:14→09:51)
[2020-05-15 09:27] LABS: POTASSIUM 4.9 mmol/L (3.5-5.1)
[2020-05-15 09:30] LABS: ALBUMIN 2.8 g/dl (3.4-5.0)
[2020-05-15 09:31] LABS: BLOOD UREA NITROGEN 24.6 mg/dL (7-18); CALCIUM 8.8 mg/dL (8.5-10.1)
[2020-05-15 09:34] LABS: PHOSPHOROUS 3.6 mg/dL (2.5-4.9)
[2020-05-15 09:35] LABS: BILIRUBIN,TOTAL 0.3 mg/dL (0.2-1); TOT PROT 6.4 g/dl (6.4-8.2)
[2020-05-15] MEDS ORDERED: SODIUM ZIRCONIUM CYCLOSILICATE (LOKELMA) 5 GM PACKET PO ONE (13:15)
[2020-05-15] MEDS: RAMIPRIL 1.25 MG CAPSULE PO SCH (15:10)
[2020-05-15] MEDS: COLLAGENASE CLOSTRIDIUM HIST. 30 GRAMS TUBE TP SCH (15:11)
[2020-05-15] MEDS: SENNOSIDES 8.6MG TABLET (FP) PO SCH (22:05)
[2020-05-15] MEDS: ATORVASTATIN CA 20 MG TABLET (FP) PO SCH (22:05)
[2020-05-16] MEDS: CEFAZOLIN 1 GM/D5W 1 GM/50 ML BAG IVPB SCH ×2 (01:45→10:07)
[2020-05-16] MEDS: INSULIN SLIDING SCALE (NOVOLOG) 1 VIAL SQ SCH ×2 (06:35→11:34)
[2020-05-16] MEDS: HEPARIN NA (PORCINE) 5,000 UNITS/ML 1ML VIAL SQ SCH ×2 (06:35→13:31)
[2020-05-16] MEDS: LEVOTHYROXINE NA 75 MCG TABLET (FP) PO SCH (06:35)
[2020-05-16] MEDS: INSULIN (LEVEMIR) 100 UNITS/ML UNITS SQ SCH (06:35)
[2020-05-16] MEDS ORDERED: AMINO ACIDS/PROTEIN HYDROLYS 30 ML LIQUID.PKT PO SCH (08:00)
[2020-05-16] MEDS: FERROUS SO4 325 MG TABLET (FP) PO SCH (08:46)
[2020-05-16] MEDS: RAMIPRIL 1.25 MG CAPSULE PO SCH (10:05)
[2020-05-16] MEDS: METOPROLOL TARTRATE 25 MG TABLET (FP) PO SCH (10:05)
[2020-05-16] MEDS: ISOSORBIDE MONONITRATE 30 MG TAB.SR.24H (FP) PO SCH (10:05)
[2020-05-16] MEDS: POLYETHYLENE GLYCOL 3350 119 GM BTL PO SCH (10:06)
[2020-05-16] MEDS: GABAPENTIN 300 MG CAPSULE PO SCH (10:06)
[2020-05-16] MEDS: MULTIVITAMINS (DAILY MVI) TABLET (FP) PO SCH (10:07)
[2020-05-16] MEDS: FENOFIBRIC ACID 135 MG CAP PO SCH (10:07)
[2020-05-16] MEDS: MINERAL OIL/PET HY-PHL TOPICAL OINTMENT 454 GM JAR TP SCH (10:08)
[2020-05-16] MEDS: ZINC OXIDE 20% TOPICAL OINTMENT 30 GM TUBE TP SCH (10:09)
[2020-05-16] MEDS: COLLAGENASE CLOSTRIDIUM HIST. 30 GRAMS TUBE TP SCH (10:09)
[2020-05-16 12:00] LABS: POTASSIUM 4.8 mmol/L (3.5-5.1)
[2020-05-16 12:04] LABS: CALCIUM 8.9 mg/dL (8.5-10.1)
[2020-05-16 12:05] LABS: ALBUMIN 2.8 g/dl (3.4-5.0); BLOOD UREA NITROGEN 28.7 mg/dL (7-18)
[2020-05-16 12:08] LABS: CREATININE 1.1 mg/dL (0.55-1.3); PHOSPHOROUS 3.2 mg/dL (2.5-4.9)
[2020-05-16 12:09] LABS: BILIRUBIN,TOTAL 0.3 mg/dL (0.2-1); TOT PROT 6.5 g/dl (6.4-8.2)
[2020-05-16 14:08] VITALS: PULSE 72
[2020-05-16 15:05] VITALS: BP 100/44; TEMP 97.9
== END 2020-05-16 16:05 | DRG 854 ==
LOC: JER 01:13 → JERBED 07:43 → J5WEST-2 21:48
PROVIDERS: ADMIT Internal Medicine; ATTEND Internal Medicine
PROC: 3E0102A Introduction of Anti-Infective Envelope into Subcutaneous Tissue, Open Approach (ICD-10-PCS; 2020-05-14)
PROC: 0JBQ0ZZ Excision of Right Foot Subcutaneous Tissue and Fascia, Open Approach (ICD-10-PCS; principal; 2020-05-14 13:00)
DX: A41.89 Other specified sepsis (principal); N17.9 Acute kidney failure, unspecified; N39.0 Urinary tract infection, site not specified; L03.115 Cellulitis of right lower limb; L03.116 Cellulitis of left lower limb; E87.2 Acidosis; L97.418 Non-pressure chronic ulcer of right heel and midfoot with other specified severity; E11.52 Type 2 diabetes mellitus with diabetic peripheral angiopathy with gangrene; I96 Gangrene, not elsewhere classified; R65.20 Severe sepsis without septic shock; E87.5 Hyperkalemia; I25.10 Atherosclerotic heart disease of native coronary artery without angina pectoris; E03.9 Hypothyroidism, unspecified; E78.5 Hyperlipidemia, unspecified; I10 Essential (primary) hypertension; E66.9 Obesity, unspecified; Z68.33 Body mass index [BMI] 33.0-33.9, adult; E11.40 Type 2 diabetes mellitus with diabetic neuropathy, unspecified; R29.6 Repeated falls; Z85.42 Personal history of malignant neoplasm of other parts of uterus; E11.621 Type 2 diabetes mellitus with foot ulcer; D50.0 Iron deficiency anemia secondary to blood loss (chronic); Z22.322 Carrier or suspected carrier of Methicillin resistant Staphylococcus aureus
CPT/HCPCS: 36415; 70450-TC; 71045-TC-FY; 72125-TC; 73523-TC-FY; 73630-TC-RT-FY; 76775-TC; 80048; 80053; 81003; 82550; 82565; 82607; 82728; 82746; 82962; 83540; 83550; 83605; 83735; 83880; 84100; 84443; 84466; 84484; 85025; 85027; 85045; 85610; 85730; 87040; 87070; 87086; 87186; 87205; 88304-TC; 93005; 93010; 93970-TC; 94760; 97116-GP; 97162-GP; 99285-25; C9803; J0131; J1644; J1756; U0003

== ENCOUNTER 2020-12-08 11:28 | Inpatient (IN) | payer OTHER, BC ==
[2020-12-08] MEDS ORDERED: VANCOMYCIN HCL 1,500 MG in DEXTROSE 5%-WATER - 500 ML IVPB ONE (12:08)
[2020-12-08] MEDS ORDERED: ONDANSETRON 4 MG/2 ML VIAL IVPUSH ONE ×2 (12:13→18:38)
[2020-12-08] MEDS ORDERED: morphine CARPU-JECT 4 MG/1 ML DISP.SYRIN IVPUSH ONE ×2 (12:13→14:03)
[2020-12-08] MEDS ORDERED: SODIUM CHLORIDE 0.9% 500 ML INFUS.BAG IV ONE (12:14)
[2020-12-08] MEDS ORDERED: CLINDAMYCIN 600MG PREMIX IVPB 600 MG/50 ML BAG IVPB ONE ×3 (12:14→21:36)
[2020-12-08] MEDS ORDERED: MORPHINE SULFATE 2 MG/ML VIAL ONE (13:02)
[2020-12-08] MEDS ORDERED: ONDANSETRON 4 MG/2 ML VIAL ONE ×2 (13:02→18:41)
[2020-12-08 13:16] LABS: BASO % 0.6 % (0-2.0); EOS % 2.5 % (0-4.5); HEMOGLOBIN 9.9 GM/dL (10.7-15.3); LYMPH % 31.6 % (8-40); MCH 23.6 pg (25.7-33.7); MCHC 32.1 g/dl (32.0-36.0); MEAN CELL VOLUME 73.6 fl (80-96); MEAN PLT VOLUME 7.8 fl (7.5-11.1); MONO % 7.8 % (3.8-10.2); NEUT % 57.5 % (42.8-82.8); PLATELET COUNT 284 10^3/uL (134-434); RBC 4.21 M/mm3 (3.60-5.2); RDW 19.4 % (11.6-15.6); WHITE BLOOD COUNT 7.1 K/mm3 (4.0-10.0)
[2020-12-08 13:22] LABS: INR 0.97 (0.83-1.09); PROTHROMBIN TIME (PATIENT) 11.9 SEC (9.7-13.0)
[2020-12-08] MEDS ORDERED: ACETAMINOPHEN 1000 MG/100 ML VIAL (NON FORMULARY) IVPB ONE (13:24)
[2020-12-08 13:25] LABS: ACTIVATED PTT 29.3 SECONDS (25.2-36.5)
[2020-12-08 13:30] LABS: CHLORIDE 103 mmol/L (98-107); SODIUM 135 mmol/L (136-145)
[2020-12-08 13:32] LABS: ANION GAP 4 MMOL/L (8-16); BLOOD UREA NITROGEN 29.6 mg/dL (7-18); CALCIUM 8.7 mg/dL (8.5-10.1); CO2 28 mmol/L (21-32); GLUCOSE,RANDOM 288 mg/dL (74-106)
[2020-12-08] MEDS ORDERED: ACETAMINOPHEN INJECTION 100 ML IVPB ONE (13:33)
[2020-12-08 13:35] LABS: CREATININE 1.2 mg/dL (0.55-1.3); SGOT/AST 8 U/L (15-37); SGPT/ALT 13 U/L (13-61)
[2020-12-08 13:37] LABS: BILIRUBIN,TOTAL 0.3 mg/dL (0.2-1); TOT PROT 7.6 g/dl (6.4-8.2)
[2020-12-08 13:38] LABS: ALK PHOS 77 U/L (45-117)
[2020-12-08 14:09] LABS: EPI CELLS 8 /uL (0-25.1); HYALINE CASTS 1 /uL (0-3.1); URINE APPEARANCE CLOUDY; URINE BACTERIA >9,000 /uL (0-1359); URINE BILIRUBIN NEGATIVE (NEGATIVE); URINE COLOR YELLOW; URINE GLUCOSE (UA) 3+ (NEGATIVE); URINE KETONE NEGATIVE (NEGATIVE); URINE LEUK ESTERASE 2+ (NEGATIVE); URINE NITRITE POSITIVE (NEGATIVE); URINE PROTEIN 1+ (NEGATIVE); URINE RBC 264 /uL (0-23.9); URINE UROBILINOGEN 0.2 mg/dL (0.2-1.0); URINE WBC 3163 /uL (0-25.8)
[2020-12-08] MEDS ORDERED: VANCOMYCIN 1 GM in D5W (PRE-DOCKED) 1,000 MG/250 ML IVPB ONE (14:35)
[2020-12-08] MEDS ORDERED: morphine SULFATE 4 MG/ML VIAL ONE (14:49)
[2020-12-08] MEDS ORDERED: HYDROmorphone HCL CARPU-JECT 2 MG/1 ML DISP.SYRIN IVPB ONE (16:24)
[2020-12-08] MEDS ORDERED: MORPHINE SULFATE 2 MG/ML VIAL IVPUSH PRN (16:26)
[2020-12-08] MEDS ORDERED: ONDANSETRON 4 MG/2 ML VIAL IVPUSH PRN (16:26)
[2020-12-08] MEDS ORDERED: ACETAMINOPHEN 325 MG TABLET (FP) PO PRN (16:29)
[2020-12-08] MEDS ORDERED: HYDROmorphone HCl 2 MG/ML VIAL ONE (17:02)
[2020-12-08] MEDS ORDERED: VANCOMYCIN 1 GRAM (PRE-DOCKED) 1,000 MG/250 ML BAG IVPB ONE (18:04)
[2020-12-08] MEDS: INSULIN SLIDING SCALE (NOVOLOG) 1 VIAL SQ SCH ×2 (18:06→20:59)
[2020-12-08] MEDS ORDERED: ATORVASTATIN CA 40 MG TABLET (FP) ONE (21:35)
[2020-12-08] MEDS ORDERED: METOPROLOL TARTRATE 25 MG TABLET (FP) ONE (21:35)
[2020-12-08] MEDS ORDERED: GABAPENTIN 100 MG CAPSULE ONE (21:35)
[2020-12-08] MEDS: GABAPENTIN 300 MG CAPSULE PO SCH (21:47)
[2020-12-08] MEDS: METOPROLOL TARTRATE 25 MG TABLET (FP) PO SCH (21:47)
[2020-12-08] MEDS: CLINDAMYCIN 600MG PREMIX IVPB 600 MG/50 ML BAG IVPB SCH (21:47)
[2020-12-08] MEDS ORDERED: ATORVASTATIN CA 20 MG TABLET (FP) PO SCH (22:00)
[2020-12-09 03:03] VITALS: BMI 35.8
[2020-12-09] MEDS: CLINDAMYCIN 600MG PREMIX IVPB 600 MG/50 ML BAG IVPB SCH (04:15)
[2020-12-09] MEDS: AMMONIUM LACTATE 12% LOTION 225 GM BOTTLE TP SCH ×3 (04:28→23:03)
[2020-12-09] MEDS: INSULIN SLIDING SCALE (NOVOLOG) 1 VIAL SQ SCH ×4 (06:19→22:30)
[2020-12-09] MEDS ORDERED: LEVOTHYROXINE NA 75 MCG TABLET (FP) PO SCH (07:00)
[2020-12-09] MEDS ORDERED: PIPERACILLIN/TAZOB 2.25 GM 2.25 GM in DEXTROSE 5%-WATER - 50 ML IVPB ONE (07:52)
[2020-12-09] MEDS ORDERED: PIPERACILLIN/TAZOBACTAM 2.25 GM VIAL IVPB ONE (08:36)
[2020-12-09] MEDS ORDERED: DEXTROSE 5%-WATER - 50 ML IVPB ONE (08:36)
[2020-12-09] MEDS ORDERED: PT OWN MED DRAWER 7, Y5N ONE (09:06)
[2020-12-09] MEDS: GABAPENTIN 300 MG CAPSULE PO SCH ×2 (09:41→22:30)
[2020-12-09] MEDS: METOPROLOL TARTRATE 25 MG TABLET (FP) PO SCH ×2 (09:42→22:29)
[2020-12-09] MEDS ORDERED: DEXTROSE 5%-NORMAL SALINE 1,000 ML IV SCH (09:45)
[2020-12-09] MEDS ORDERED: ZINC OXIDE 20% TOPICAL OINTMENT 30 GM TUBE TP SCH (10:00)
[2020-12-09] MEDS ORDERED: BACITRACIN 15 GM TUBE TOPICAL OINTMENT TP SCH (10:00)
[2020-12-09] MEDS ORDERED: POLYETHYLENE GLYCOL (HEALTHYLAX) 3350 17 GM PACKET PO SCH (10:00)
[2020-12-09] MEDS ORDERED: FENOFIBRIC ACID 135 MG CAP PO SCH (10:00)
[2020-12-09] MEDS ORDERED: FERROUS SO4 325 MG TABLET (FP) PO SCH (10:00)
[2020-12-09] MEDS ORDERED: MINERAL OIL/PET HY-PHL TOPICAL OINTMENT 454 GM JAR TP SCH (10:00)
[2020-12-09] MEDS ORDERED: VANCOMYCIN 1 GM in D5W (PRE-DOCKED) 1,000 MG/250 ML IVPB SCH (10:00)
[2020-12-09] MEDS ORDERED: VANCOMYCIN 1 GRAM (PRE-DOCKED) 1,000 MG/250 ML BAG IVPB SCH (10:00)
[2020-12-09] MEDS ORDERED: RAMIPRIL 1.25 MG CAPSULE PO SCH (10:00)
[2020-12-09] MEDS ORDERED: ISOSORBIDE MONONITRATE 30 MG TAB.SR.24H (FP) PO SCH (10:00)
[2020-12-09 10:29] LABS: BASO % 0.6 % (0-2.0); EOS % 2.4 % (0-4.5); HEMATOCRIT 29.5 % (32.4-45.2); HEMOGLOBIN 9.7 GM/dL (10.7-15.3); LYMPH % 21.4 % (8-40); MCH 23.8 pg (25.7-33.7); MCHC 32.7 g/dl (32.0-36.0); MEAN CELL VOLUME 72.6 fl (80-96); MEAN PLT VOLUME 7.8 fl (7.5-11.1); MONO % 7.5 % (3.8-10.2); NEUT % 68.1 % (42.8-82.8); PLATELET COUNT 223 10^3/uL (134-434); RBC 4.06 M/mm3 (3.60-5.2); RDW 18.5 % (11.6-15.6)
[2020-12-09 10:58] LABS: CALCIUM 8.5 mg/dL (8.5-10.1)
[2020-12-09 10:59] LABS: ALBUMIN 2.5 g/dl (3.4-5.0); BLOOD UREA NITROGEN 22.5 mg/dL (7-18)
[2020-12-09 11:02] LABS: BILIRUBIN,TOTAL 0.6 mg/dL (0.2-1); TOT PROT 6.4 g/dl (6.4-8.2)
[2020-12-09] MEDS ORDERED: SODIUM CHLORIDE 1,000 ML IV SCH (13:00)
[2020-12-09] MEDS ORDERED: BUPIVACAINE HCL/PF 0.5% (5MG/ML) 10 ML VIAL ONE (14:01)
[2020-12-09] MEDS ORDERED: LIDOCAINE HCL 1%, 10 MG/ML (20ML VIAL) ONE (14:01)
[2020-12-09] MEDS ORDERED: LACTATED RINGERS SOLUTION 1,000 ML IV SCH (15:15)
[2020-12-09] MEDS ORDERED: PROPOFOL 20 ML ONE ×2 (15:16)
[2020-12-09] MEDS ORDERED: SUCCINYLCHOLINE CHLORIDE 200 MG/10 ML SYRINGE ONE (15:16)
[2020-12-09] MEDS ORDERED: ROCURONIUM BROMIDE 50 MG/5 ML SYRINGE ONE (16:04)
[2020-12-09] MEDS ORDERED: BUPIVACAINE HCL/PF 0.5% (5MG/ML) 10 ML VIAL IJ ONE (16:28)
[2020-12-09] MEDS ORDERED: ONDANSETRON 4 MG/2 ML VIAL IVPUSH PRN (17:08)
[2020-12-09] MEDS ORDERED: ACETAMINOPHEN 325 MG TABLET (FP) PO PRN (17:08)
[2020-12-09] MEDS: SODIUM CHLORIDE 1,000 ML IV SCH ×2 (17:41→17:55)
[2020-12-09] MEDS ORDERED: ENOXAPARIN NA (PORCINE) 40 MG/0.4 ML DISP.SYRIN SQ SCH (18:00)
[2020-12-09] MEDS: ENOXAPARIN NA (PORCINE) 40 MG/0.4 ML DISP.SYRIN SQ SCH (18:19)
[2020-12-09] MEDS ORDERED: INSULIN (NOVOLOG) ASPART 100 UNITS/ML 10ML VIAL SQ ONE (18:21)
[2020-12-09] MEDS: ATORVASTATIN CA 20 MG TABLET (FP) PO SCH (22:29)
[2020-12-10] MEDS: INSULIN SLIDING SCALE (NOVOLOG) 1 VIAL SQ SCH ×4 (06:03→21:11)
[2020-12-10] MEDS: LEVOTHYROXINE NA 75 MCG TABLET (FP) PO SCH (06:03)
[2020-12-10] MEDS: MORPHINE SULFATE 2 MG/ML VIAL IVPUSH PRN ×3 (06:36→21:30)
[2020-12-10 08:38] LABS: BASO % 0.5 % (0-2.0); EOS % 1.4 % (0-4.5); HEMATOCRIT 28.5 % (32.4-45.2); HEMOGLOBIN 9.3 GM/dL (10.7-15.3); LYMPH % 15.6 % (8-40); MCH 23.8 pg (25.7-33.7); MCHC 32.5 g/dl (32.0-36.0); MEAN CELL VOLUME 73.2 fl (80-96); MEAN PLT VOLUME 7.2 fl (7.5-11.1); MONO % 6.4 % (3.8-10.2); NEUT % 76.1 % (42.8-82.8); PLATELET COUNT 218 10^3/uL (134-434); RBC 3.89 M/mm3 (3.60-5.2); RDW 19.1 % (11.6-15.6); WHITE BLOOD COUNT 8.3 K/mm3 (4.0-10.0)
[2020-12-10 09:05] LABS: CALCIUM 8.1 mg/dL (8.5-10.1)
[2020-12-10 09:06] LABS: ALBUMIN 2.3 g/dl (3.4-5.0); BLOOD UREA NITROGEN 16.6 mg/dL (7-18); MAGNESIUM 1.7 mg/dL (1.8-2.4)
[2020-12-10 09:11] LABS: BILIRUBIN,TOTAL 0.6 mg/dL (0.2-1); TOT PROT 6.1 g/dl (6.4-8.2)
[2020-12-10] MEDS ORDERED: PT OWN MED DRAWER 7, Y5N ONE (09:25)
[2020-12-10] MEDS: FENOFIBRIC ACID 135 MG CAP PO SCH (09:27)
[2020-12-10] MEDS: ISOSORBIDE MONONITRATE 30 MG TAB.SR.24H (FP) PO SCH (09:27)
[2020-12-10] MEDS: ENOXAPARIN NA (PORCINE) 40 MG/0.4 ML DISP.SYRIN SQ SCH (09:28)
[2020-12-10] MEDS: POLYETHYLENE GLYCOL (HEALTHYLAX) 3350 17 GM PACKET PO SCH (09:28)
[2020-12-10] MEDS: FERROUS SO4 325 MG TABLET (FP) PO SCH (09:28)
[2020-12-10] MEDS: METOPROLOL TARTRATE 25 MG TABLET (FP) PO SCH ×2 (09:28→21:08)
[2020-12-10] MEDS: RAMIPRIL 1.25 MG CAPSULE PO SCH (09:28)
[2020-12-10] MEDS: GABAPENTIN 300 MG CAPSULE PO SCH ×2 (09:28→21:08)
[2020-12-10] MEDS: AMMONIUM LACTATE 12% LOTION 225 GM BOTTLE TP SCH ×2 (09:29→21:12)
[2020-12-10] MEDS ORDERED: VANCOMYCIN/WATER BAGS 1,250 MG/250 ML BAG IVPB SCH (10:00)
[2020-12-10] MEDS ORDERED: VANCOMYCIN 1 GM in D5W (PRE-DOCKED) 1,000 MG/250 ML IVPB SCH (10:00)
[2020-12-10] MEDS: BACITRACIN 15 GM TUBE TOPICAL OINTMENT TP SCH (10:47)
[2020-12-10] MEDS: ZINC OXIDE 20% TOPICAL OINTMENT 30 GM TUBE TP SCH (10:47)
[2020-12-10] MEDS: MINERAL OIL/PET HY-PHL TOPICAL OINTMENT 454 GM JAR TP SCH (12:22)
[2020-12-10] MEDS: SODIUM CHLORIDE 1,000 ML IV SCH ×2 (15:37→17:25)
[2020-12-10] MEDS: CLINDAMYCIN 600MG PREMIX IVPB 600 MG/50 ML BAG IVPB SCH (17:25)
[2020-12-10] MEDS: ATORVASTATIN CA 20 MG TABLET (FP) PO SCH (21:08)
[2020-12-11] MEDS: CLINDAMYCIN 600MG PREMIX IVPB 600 MG/50 ML BAG IVPB SCH ×3 (01:24→18:20)
[2020-12-11] MEDS: MORPHINE SULFATE 2 MG/ML VIAL IVPUSH PRN ×4 (04:29→22:31)
[2020-12-11] MEDS: INSULIN SLIDING SCALE (NOVOLOG) 1 VIAL SQ SCH ×4 (06:01→21:29)
[2020-12-11] MEDS: LEVOTHYROXINE NA 75 MCG TABLET (FP) PO SCH (06:02)
[2020-12-11 08:42] LABS: BASO % 0.6 % (0-2.0); EOS % 2.1 % (0-4.5); HEMATOCRIT 25.7 % (32.4-45.2); HEMOGLOBIN 8.5 GM/dL (10.7-15.3); LYMPH % 18.8 % (8-40); MCHC 33.1 g/dl (32.0-36.0); MEAN CELL VOLUME 72.4 fl (80-96); MEAN PLT VOLUME 7.3 fl (7.5-11.1); MONO % 8.5 % (3.8-10.2); PLATELET COUNT 214 10^3/uL (134-434); RBC 3.55 M/mm3 (3.60-5.2); RDW 18.8 % (11.6-15.6); WHITE BLOOD COUNT 7.2 K/mm3 (4.0-10.0)
[2020-12-11 09:01] LABS: ALBUMIN 2.1 g/dl (3.4-5.0); CALCIUM 8.4 mg/dL (8.5-10.1)
[2020-12-11 09:02] LABS: MAGNESIUM 1.7 mg/dL (1.8-2.4)
[2020-12-11 09:05] LABS: BILIRUBIN,TOTAL 0.7 mg/dL (0.2-1); CREATININE 0.9 mg/dL (0.55-1.3)
[2020-12-11 09:07] LABS: TOT PROT 5.9 g/dl (6.4-8.2)
[2020-12-11] MEDS: FENOFIBRIC ACID 135 MG CAP PO SCH (09:58)
[2020-12-11] MEDS: METOPROLOL TARTRATE 25 MG TABLET (FP) PO SCH ×2 (09:58→21:26)
[2020-12-11] MEDS: FERROUS SO4 325 MG TABLET (FP) PO SCH (09:58)
[2020-12-11] MEDS: GABAPENTIN 300 MG CAPSULE PO SCH ×2 (09:58→21:26)
[2020-12-11] MEDS: RAMIPRIL 1.25 MG CAPSULE PO SCH (10:02)
[2020-12-11] MEDS: POLYETHYLENE GLYCOL (HEALTHYLAX) 3350 17 GM PACKET PO SCH (10:03)
[2020-12-11] MEDS: BACITRACIN 15 GM TUBE TOPICAL OINTMENT TP SCH (10:55)
[2020-12-11] MEDS: AMMONIUM LACTATE 12% LOTION 225 GM BOTTLE TP SCH ×2 (10:55→21:34)
[2020-12-11] MEDS: MINERAL OIL/PET HY-PHL TOPICAL OINTMENT 454 GM JAR TP SCH (10:56)
[2020-12-11] MEDS: ZINC OXIDE 20% TOPICAL OINTMENT 30 GM TUBE TP SCH (10:56)
[2020-12-11] MEDS: ISOSORBIDE MONONITRATE 30 MG TAB.SR.24H (FP) PO SCH (10:58)
[2020-12-11] MEDS ORDERED: MAGNESIUM OXIDE 400 MG TABLET (FP) PO ONE (10:59)
[2020-12-11] MEDS: ENOXAPARIN NA (PORCINE) 40 MG/0.4 ML DISP.SYRIN SQ SCH (11:00)
[2020-12-11] MEDS ORDERED: INSULIN (NOVOLOG) ASPART 100 UNITS/ML 10ML VIAL ONE (20:48)
[2020-12-11] MEDS: ATORVASTATIN CA 20 MG TABLET (FP) PO SCH (21:26)
[2020-12-11] MEDS ORDERED: INSULIN (LEVEMIR) 100 UNITS/ML UNITS SQ SCH (22:00)
[2020-12-12] MEDS: CLINDAMYCIN 600MG PREMIX IVPB 600 MG/50 ML BAG IVPB SCH ×3 (01:25→17:43)
[2020-12-12] MEDS: LEVOTHYROXINE NA 75 MCG TABLET (FP) PO SCH (06:11)
[2020-12-12] MEDS: INSULIN SLIDING SCALE (NOVOLOG) 1 VIAL SQ SCH ×4 (06:13→22:51)
[2020-12-12] MEDS: MORPHINE SULFATE 2 MG/ML VIAL IVPUSH PRN (06:47)
[2020-12-12] MEDS: RAMIPRIL 1.25 MG CAPSULE PO SCH (09:16)
[2020-12-12] MEDS: ENOXAPARIN NA (PORCINE) 40 MG/0.4 ML DISP.SYRIN SQ SCH (09:16)
[2020-12-12] MEDS: FENOFIBRIC ACID 135 MG CAP PO SCH (09:17)
[2020-12-12] MEDS: ISOSORBIDE MONONITRATE 30 MG TAB.SR.24H (FP) PO SCH (09:17)
[2020-12-12] MEDS: GABAPENTIN 300 MG CAPSULE PO SCH ×2 (09:17→22:51)
[2020-12-12] MEDS: METOPROLOL TARTRATE 25 MG TABLET (FP) PO SCH ×2 (09:17→22:51)
[2020-12-12] MEDS: FERROUS SO4 325 MG TABLET (FP) PO SCH (09:17)
[2020-12-12] MEDS: ZINC OXIDE 20% TOPICAL OINTMENT 30 GM TUBE TP SCH (09:18)
[2020-12-12] MEDS: BACITRACIN 15 GM TUBE TOPICAL OINTMENT TP SCH (09:18)
[2020-12-12] MEDS: POLYETHYLENE GLYCOL (HEALTHYLAX) 3350 17 GM PACKET PO SCH (09:19)
[2020-12-12] MEDS: MINERAL OIL/PET HY-PHL TOPICAL OINTMENT 454 GM JAR TP SCH (09:19)
[2020-12-12] MEDS: AMMONIUM LACTATE 12% LOTION 225 GM BOTTLE TP SCH ×2 (09:20→22:51)
[2020-12-12 10:30] LABS: BASO % 0.5 % (0-2.0); HEMOGLOBIN 8.6 GM/dL (10.7-15.3); LYMPH % 23.6 % (8-40); MCH 23.6 pg (25.7-33.7); MCHC 32.9 g/dl (32.0-36.0); MEAN CELL VOLUME 71.6 fl (80-96); MONO % 8.5 % (3.8-10.2); NEUT % 64.4 % (42.8-82.8); PLATELET COUNT 230 10^3/uL (134-434); RBC 3.63 M/mm3 (3.60-5.2); RDW 18.6 % (11.6-15.6); WHITE BLOOD COUNT 6.9 K/mm3 (4.0-10.0)
[2020-12-12 11:15] LABS: ALBUMIN 2.2 g/dl (3.4-5.0); BILIRUBIN,TOTAL 0.4 mg/dL (0.2-1); BLOOD UREA NITROGEN 15.6 mg/dL (7-18); CALCIUM 8.6 mg/dL (8.5-10.1); CREATININE 0.9 mg/dL (0.55-1.3); MAGNESIUM 1.9 mg/dL (1.8-2.4); TOT PROT 6.2 g/dl (6.4-8.2)
[2020-12-12] MEDS ORDERED: INSULIN (NOVOLOG) ASPART 100 UNITS/ML 10ML VIAL ONE (11:41)
[2020-12-12] MEDS: oxyCODONE HCL 5 MG TABLET PO PRN (11:48)
[2020-12-12] MEDS ORDERED: PT OWN MED DRAWER 7, Y5N ONE (13:13)
[2020-12-12] MEDS: INSULIN (LEVEMIR) 100 UNITS/ML UNITS SQ SCH (22:51)
[2020-12-12] MEDS: ATORVASTATIN CA 20 MG TABLET (FP) PO SCH (22:51)
[2020-12-13] MEDS: CLINDAMYCIN 600MG PREMIX IVPB 600 MG/50 ML BAG IVPB SCH ×2 (02:22→09:01)
[2020-12-13] MEDS: LEVOTHYROXINE NA 75 MCG TABLET (FP) PO SCH (06:26)
[2020-12-13] MEDS: INSULIN SLIDING SCALE (NOVOLOG) 1 VIAL SQ SCH ×4 (06:29→22:20)
[2020-12-13] MEDS ORDERED: INSULIN (NOVOLOG) ASPART 100 UNITS/ML 10ML VIAL ONE ×3 (06:34→22:59)
[2020-12-13] MEDS ORDERED: PT OWN MED DRAWER 7, Y5N ONE ×3 (08:51→16:00)
[2020-12-13] MEDS: oxyCODONE HCL 5 MG TABLET PO PRN (08:55)
[2020-12-13] MEDS: FERROUS SO4 325 MG TABLET (FP) PO SCH (09:00)
[2020-12-13] MEDS: ENOXAPARIN NA (PORCINE) 40 MG/0.4 ML DISP.SYRIN SQ SCH (09:00)
[2020-12-13] MEDS: METOPROLOL TARTRATE 25 MG TABLET (FP) PO SCH ×2 (09:00→22:19)
[2020-12-13] MEDS: GABAPENTIN 300 MG CAPSULE PO SCH ×2 (09:00→22:19)
[2020-12-13] MEDS: POLYETHYLENE GLYCOL (HEALTHYLAX) 3350 17 GM PACKET PO SCH ×2 (09:01→10:31)
[2020-12-13] MEDS: FENOFIBRIC ACID 135 MG CAP PO SCH (09:01)
[2020-12-13] MEDS: BACITRACIN 15 GM TUBE TOPICAL OINTMENT TP SCH (09:01)
[2020-12-13] MEDS: MINERAL OIL/PET HY-PHL TOPICAL OINTMENT 454 GM JAR TP SCH (09:01)
[2020-12-13] MEDS: RAMIPRIL 1.25 MG CAPSULE PO SCH (09:01)
[2020-12-13] MEDS: ISOSORBIDE MONONITRATE 30 MG TAB.SR.24H (FP) PO SCH (09:01)
[2020-12-13] MEDS: ZINC OXIDE 20% TOPICAL OINTMENT 30 GM TUBE TP SCH (09:02)
[2020-12-13] MEDS: AMMONIUM LACTATE 12% LOTION 225 GM BOTTLE TP SCH ×2 (09:02→22:21)
[2020-12-13 09:40] LABS: BASO % 0.6 % (0-2.0); EOS % 3.6 % (0-4.5); HEMOGLOBIN 8.8 GM/dL (10.7-15.3); LYMPH % 28.3 % (8-40); MCH 23.8 pg (25.7-33.7); MCHC 32.8 g/dl (32.0-36.0); MEAN CELL VOLUME 72.6 fl (80-96); MONO % 9.5 % (3.8-10.2); PLATELET COUNT 248 10^3/uL (134-434); RBC 3.71 M/mm3 (3.60-5.2); WHITE BLOOD COUNT 5.6 K/mm3 (4.0-10.0)
[2020-12-13 09:43] LABS: ALBUMIN 2.4 g/dl (3.4-5.0); BLOOD UREA NITROGEN 18.2 mg/dL (7-18); CALCIUM 8.6 mg/dL (8.5-10.1)
[2020-12-13 09:44] LABS: MAGNESIUM 1.8 mg/dL (1.8-2.4)
[2020-12-13 09:49] LABS: BILIRUBIN,TOTAL 0.3 mg/dL (0.2-1); TOT PROT 6.4 g/dl (6.4-8.2)
[2020-12-13] MEDS: SODIUM CHLORIDE IVPB SCH (16:28)
[2020-12-13] MEDS: DAPTOMYCIN IVPB SCH (16:28)
[2020-12-13] MEDS: INSULIN (LEVEMIR) 100 UNITS/ML UNITS SQ SCH (22:19)
[2020-12-13] MEDS ORDERED: INSULIN (LEVEMIR) 100 UNITS/ML UNITS SQ ONE (23:00)
[2020-12-14] MEDS ORDERED: INSULIN (NOVOLOG) ASPART 100 UNITS/ML 10ML VIAL ONE (05:37)
[2020-12-14] MEDS: INSULIN SLIDING SCALE (NOVOLOG) 1 VIAL SQ SCH ×4 (06:31→21:39)
[2020-12-14] MEDS: LEVOTHYROXINE NA 75 MCG TABLET (FP) PO SCH (06:32)
[2020-12-14 07:54] LABS: BASO % 0.6 % (0-2.0); EOS % 3.2 % (0-4.5); HEMATOCRIT 26.6 % (32.4-45.2); HEMOGLOBIN 8.7 GM/dL (10.7-15.3); LYMPH % 30.7 % (8-40); MCH 23.7 pg (25.7-33.7); MCHC 32.7 g/dl (32.0-36.0); MEAN CELL VOLUME 72.7 fl (80-96); MEAN PLT VOLUME 7.6 fl (7.5-11.1); MONO % 9.4 % (3.8-10.2); NEUT % 56.1 % (42.8-82.8); PLATELET COUNT 244 10^3/uL (134-434); RBC 3.66 M/mm3 (3.60-5.2); RDW 19.1 % (11.6-15.6); WHITE BLOOD COUNT 5.9 K/mm3 (4.0-10.0)
[2020-12-14 08:04] LABS: ALBUMIN 2.4 g/dl (3.4-5.0); BLOOD UREA NITROGEN 20.3 mg/dL (7-18); CALCIUM 8.8 mg/dL (8.5-10.1); MAGNESIUM 1.8 mg/dL (1.8-2.4)
[2020-12-14 08:08] LABS: BILIRUBIN,TOTAL 0.6 mg/dL (0.2-1); TOT PROT 6.4 g/dl (6.4-8.2)
[2020-12-14] MEDS ORDERED: PT OWN MED DRAWER 7, Y5N ONE (08:28)
[2020-12-14] MEDS: GABAPENTIN 300 MG CAPSULE PO SCH ×2 (09:00→21:39)
[2020-12-14] MEDS: RAMIPRIL 1.25 MG CAPSULE PO SCH (09:00)
[2020-12-14] MEDS: FERROUS SO4 325 MG TABLET (FP) PO SCH (09:01)
[2020-12-14] MEDS: ISOSORBIDE MONONITRATE 30 MG TAB.SR.24H (FP) PO SCH (09:01)
[2020-12-14] MEDS: MINERAL OIL/PET HY-PHL TOPICAL OINTMENT 454 GM JAR TP SCH (09:01)
[2020-12-14] MEDS: AMMONIUM LACTATE 12% LOTION 225 GM BOTTLE TP SCH ×2 (09:01→21:39)
[2020-12-14] MEDS: BACITRACIN 15 GM TUBE TOPICAL OINTMENT TP SCH (09:01)
[2020-12-14] MEDS: METOPROLOL TARTRATE 25 MG TABLET (FP) PO SCH ×2 (09:01→21:39)
[2020-12-14] MEDS: FENOFIBRIC ACID 135 MG CAP PO SCH (09:01)
[2020-12-14] MEDS: POLYETHYLENE GLYCOL (HEALTHYLAX) 3350 17 GM PACKET PO SCH (09:01)
[2020-12-14] MEDS: ENOXAPARIN NA (PORCINE) 40 MG/0.4 ML DISP.SYRIN SQ SCH (09:02)
[2020-12-14] MEDS: ZINC OXIDE 20% TOPICAL OINTMENT 30 GM TUBE TP SCH (09:02)
[2020-12-14] MEDS: DAPTOMYCIN IVPB SCH (14:16)
[2020-12-14] MEDS: SODIUM CHLORIDE IVPB SCH (14:16)
[2020-12-14] MEDS: INSULIN (LEVEMIR) 100 UNITS/ML UNITS SQ SCH (21:39)
[2020-12-15] MEDS: INSULIN SLIDING SCALE (NOVOLOG) 1 VIAL SQ SCH ×4 (06:13→21:26)
[2020-12-15] MEDS: LEVOTHYROXINE NA 75 MCG TABLET (FP) PO SCH (06:13)
[2020-12-15 08:29] LABS: BASO % 0.4 % (0-2.0); HEMATOCRIT 26.9 % (32.4-45.2); HEMOGLOBIN 8.9 GM/dL (10.7-15.3); LYMPH % 32.9 % (8-40); MCH 24.2 pg (25.7-33.7); MCHC 33.1 g/dl (32.0-36.0); MEAN CELL VOLUME 72.9 fl (80-96); MEAN PLT VOLUME 7.4 fl (7.5-11.1); MONO % 2.1 % (3.8-10.2); NEUT % 61.6 % (42.8-82.8); PLATELET COUNT 245 10^3/uL (134-434); RBC 3.69 M/mm3 (3.60-5.2); RDW 18.8 % (11.6-15.6); WHITE BLOOD COUNT 5.6 K/mm3 (4.0-10.0)
[2020-12-15 08:58] LABS: BLOOD UREA NITROGEN 18.8 mg/dL (7-18); CALCIUM 8.4 mg/dL (8.5-10.1)
[2020-12-15 08:59] LABS: ALBUMIN 2.4 g/dl (3.4-5.0); MAGNESIUM 1.9 mg/dL (1.8-2.4)
[2020-12-15 09:01] LABS: CREATININE 0.9 mg/dL (0.55-1.3)
[2020-12-15 09:03] LABS: BILIRUBIN,TOTAL 0.9 mg/dL (0.2-1); TOT PROT 6.4 g/dl (6.4-8.2)
[2020-12-15] MEDS ORDERED: PT OWN MED DRAWER 7, Y5N ONE ×2 (11:31→12:16)
[2020-12-15] MEDS: ENOXAPARIN NA (PORCINE) 40 MG/0.4 ML DISP.SYRIN SQ SCH (11:37)
[2020-12-15] MEDS: FENOFIBRIC ACID 135 MG CAP PO SCH (11:37)
[2020-12-15] MEDS: METOPROLOL TARTRATE 25 MG TABLET (FP) PO SCH ×2 (11:37→21:26)
[2020-12-15] MEDS: GABAPENTIN 300 MG CAPSULE PO SCH ×2 (11:37→21:26)
[2020-12-15] MEDS: ISOSORBIDE MONONITRATE 30 MG TAB.SR.24H (FP) PO SCH (11:37)
[2020-12-15] MEDS: FERROUS SO4 325 MG TABLET (FP) PO SCH (11:38)
[2020-12-15] MEDS: BACITRACIN 15 GM TUBE TOPICAL OINTMENT TP SCH (11:38)
[2020-12-15] MEDS: MINERAL OIL/PET HY-PHL TOPICAL OINTMENT 454 GM JAR TP SCH (11:38)
[2020-12-15] MEDS: RAMIPRIL 1.25 MG CAPSULE PO SCH (11:38)
[2020-12-15] MEDS: AMMONIUM LACTATE 12% LOTION 225 GM BOTTLE TP SCH ×2 (11:38→21:26)
[2020-12-15] MEDS: ZINC OXIDE 20% TOPICAL OINTMENT 30 GM TUBE TP SCH (11:39)
[2020-12-15] MEDS: POLYETHYLENE GLYCOL (HEALTHYLAX) 3350 17 GM PACKET PO SCH (11:39)
[2020-12-15] MEDS ORDERED: INSULIN (NOVOLOG) ASPART 100 UNITS/ML 10ML VIAL ONE (12:17)
[2020-12-15] MEDS ORDERED: INSULIN (LEVEMIR) 100 UNITS/ML UNITS SQ SCH (15:02)
[2020-12-15] MEDS: NYSTATIN POWDER 100,000 UNITS/GM - 15 GM TOPICAL POWDER TP SCH ×2 (16:04→21:27)
[2020-12-15] MEDS: DAPTOMYCIN IVPB SCH (16:05)
[2020-12-15] MEDS: SODIUM CHLORIDE IVPB SCH (16:05)
[2020-12-16] MEDS: LEVOTHYROXINE NA 75 MCG TABLET (FP) PO SCH (06:04)
[2020-12-16] MEDS: INSULIN SLIDING SCALE (NOVOLOG) 1 VIAL SQ SCH ×4 (06:04→22:18)
[2020-12-16] MEDS: NYSTATIN POWDER 100,000 UNITS/GM - 15 GM TOPICAL POWDER TP SCH ×3 (06:04→22:19)
[2020-12-16] MEDS ORDERED: PT OWN MED DRAWER 7, Y5N ONE (09:09)
[2020-12-16] MEDS: MINERAL OIL/PET HY-PHL TOPICAL OINTMENT 454 GM JAR TP SCH (09:13)
[2020-12-16] MEDS: FERROUS SO4 325 MG TABLET (FP) PO SCH (09:13)
[2020-12-16] MEDS: FENOFIBRIC ACID 135 MG CAP PO SCH (09:13)
[2020-12-16] MEDS: ENOXAPARIN NA (PORCINE) 40 MG/0.4 ML DISP.SYRIN SQ SCH (09:13)
[2020-12-16] MEDS: ISOSORBIDE MONONITRATE 30 MG TAB.SR.24H (FP) PO SCH (09:13)
[2020-12-16] MEDS: RAMIPRIL 1.25 MG CAPSULE PO SCH (09:13)
[2020-12-16] MEDS: POLYETHYLENE GLYCOL (HEALTHYLAX) 3350 17 GM PACKET PO SCH (09:13)
[2020-12-16] MEDS: BACITRACIN 15 GM TUBE TOPICAL OINTMENT TP SCH (09:13)
[2020-12-16] MEDS: METOPROLOL TARTRATE 25 MG TABLET (FP) PO SCH ×2 (09:13→22:14)
[2020-12-16] MEDS: GABAPENTIN 300 MG CAPSULE PO SCH ×2 (09:13→22:14)
[2020-12-16] MEDS: ZINC OXIDE 20% TOPICAL OINTMENT 30 GM TUBE TP SCH (09:14)
[2020-12-16] MEDS: AMMONIUM LACTATE 12% LOTION 225 GM BOTTLE TP SCH ×2 (09:14→22:15)
[2020-12-16 09:29] LABS: BASO % 0.5 % (0-2.0); EOS % 2.7 % (0-4.5); HEMATOCRIT 27.2 % (32.4-45.2); HEMOGLOBIN 8.9 GM/dL (10.7-15.3); LYMPH % 31.3 % (8-40); MCH 23.9 pg (25.7-33.7); MCHC 32.6 g/dl (32.0-36.0); MEAN CELL VOLUME 73.2 fl (80-96); MEAN PLT VOLUME 7.7 fl (7.5-11.1); MONO % 7.6 % (3.8-10.2); NEUT % 57.9 % (42.8-82.8); PLATELET COUNT 248 10^3/uL (134-434); RBC 3.72 M/mm3 (3.60-5.2); WHITE BLOOD COUNT 6.6 K/mm3 (4.0-10.0)
[2020-12-16 10:07] LABS: ALBUMIN 2.4 g/dl (3.4-5.0); CALCIUM 8.6 mg/dL (8.5-10.1)
[2020-12-16 10:10] LABS: CREATININE 1.2 mg/dL (0.55-1.3)
[2020-12-16 10:12] LABS: BILIRUBIN,TOTAL 0.6 mg/dL (0.2-1); TOT PROT 6.6 g/dl (6.4-8.2)
[2020-12-16] MEDS: DAPTOMYCIN IVPB SCH (13:50)
[2020-12-16] MEDS: SODIUM CHLORIDE IVPB SCH (13:50)
[2020-12-16] MEDS: INSULIN (LEVEMIR) 100 UNITS/ML UNITS SQ SCH (22:18)
[2020-12-17] MEDS: NYSTATIN POWDER 100,000 UNITS/GM - 15 GM TOPICAL POWDER TP SCH ×3 (06:06→21:04)
[2020-12-17] MEDS: INSULIN SLIDING SCALE (NOVOLOG) 1 VIAL SQ SCH ×4 (06:07→21:03)
[2020-12-17] MEDS: INSULIN (LEVEMIR) 100 UNITS/ML UNITS SQ SCH ×2 (06:08→21:03)
[2020-12-17] MEDS: LEVOTHYROXINE NA 75 MCG TABLET (FP) PO SCH (06:19)
[2020-12-17] MEDS: ZINC OXIDE 20% TOPICAL OINTMENT 30 GM TUBE TP SCH (08:45)
[2020-12-17] MEDS: MINERAL OIL/PET HY-PHL TOPICAL OINTMENT 454 GM JAR TP SCH (08:45)
[2020-12-17] MEDS: BACITRACIN 15 GM TUBE TOPICAL OINTMENT TP SCH (08:45)
[2020-12-17 09:54] LABS: BASO % 1.1 % (0-2.0); HEMATOCRIT 28.5 % (32.4-45.2); HEMOGLOBIN 9.4 GM/dL (10.7-15.3); LYMPH % 34.9 % (8-40); MCH 23.8 pg (25.7-33.7); MEAN CELL VOLUME 72.2 fl (80-96); MEAN PLT VOLUME 7.5 fl (7.5-11.1); MONO % 8.1 % (3.8-10.2); NEUT % 52.9 % (42.8-82.8); PLATELET COUNT 220 10^3/uL (134-434); RBC 3.96 M/mm3 (3.60-5.2); RDW 19.4 % (11.6-15.6); WHITE BLOOD COUNT 7.5 K/mm3 (4.0-10.0)
[2020-12-17 10:31] LABS: CALCIUM 8.6 mg/dL (8.5-10.1)
[2020-12-17 10:32] LABS: ALBUMIN 2.6 g/dl (3.4-5.0); BLOOD UREA NITROGEN 23.8 mg/dL (7-18); MAGNESIUM 1.9 mg/dL (1.8-2.4)
[2020-12-17 10:34] LABS: CREATININE 1.1 mg/dL (0.55-1.3)
[2020-12-17 10:35] LABS: BILIRUBIN,TOTAL 0.6 mg/dL (0.2-1); TOT PROT 6.8 g/dl (6.4-8.2)
[2020-12-17] MEDS ORDERED: PT OWN MED DRAWER 7, Y5N ONE (11:08)
[2020-12-17] MEDS: ENOXAPARIN NA (PORCINE) 40 MG/0.4 ML DISP.SYRIN SQ SCH (11:09)
[2020-12-17] MEDS: ISOSORBIDE MONONITRATE 30 MG TAB.SR.24H (FP) PO SCH (11:10)
[2020-12-17] MEDS: METOPROLOL TARTRATE 25 MG TABLET (FP) PO SCH ×2 (11:10→21:02)
[2020-12-17] MEDS: POLYETHYLENE GLYCOL (HEALTHYLAX) 3350 17 GM PACKET PO SCH (11:10)
[2020-12-17] MEDS: FENOFIBRIC ACID 135 MG CAP PO SCH (11:10)
[2020-12-17] MEDS: FERROUS SO4 325 MG TABLET (FP) PO SCH (11:10)
[2020-12-17] MEDS: GABAPENTIN 300 MG CAPSULE PO SCH ×2 (11:10→21:03)
[2020-12-17] MEDS: RAMIPRIL 1.25 MG CAPSULE PO SCH (11:11)
[2020-12-17] MEDS: AMMONIUM LACTATE 12% LOTION 225 GM BOTTLE TP SCH ×2 (11:12→21:05)
[2020-12-17] MEDS: SODIUM CHLORIDE IVPB SCH (18:15)
[2020-12-17] MEDS: DAPTOMYCIN IVPB SCH (18:15)
[2020-12-18] MEDS: NYSTATIN POWDER 100,000 UNITS/GM - 15 GM TOPICAL POWDER TP SCH ×3 (06:09→21:50)
[2020-12-18] MEDS: INSULIN (LEVEMIR) 100 UNITS/ML UNITS SQ SCH ×2 (06:09→21:48)
[2020-12-18] MEDS: INSULIN SLIDING SCALE (NOVOLOG) 1 VIAL SQ SCH ×4 (06:10→21:49)
[2020-12-18] MEDS: LEVOTHYROXINE NA 75 MCG TABLET (FP) PO SCH (06:11)
[2020-12-18 09:07] LABS: BASO % 0.6 % (0-2.0); EOS % 2.9 % (0-4.5); HEMATOCRIT 28.9 % (32.4-45.2); HEMOGLOBIN 9.4 GM/dL (10.7-15.3); LYMPH % 36.4 % (8-40); MCHC 32.5 g/dl (32.0-36.0); MEAN CELL VOLUME 73.8 fl (80-96); MEAN PLT VOLUME 7.7 fl (7.5-11.1); MONO % 8.8 % (3.8-10.2); NEUT % 51.3 % (42.8-82.8); PLATELET COUNT 238 10^3/uL (134-434); RBC 3.92 M/mm3 (3.60-5.2); RDW 19.9 % (11.6-15.6); WHITE BLOOD COUNT 6.2 K/mm3 (4.0-10.0)
[2020-12-18 09:33] LABS: ALBUMIN 2.5 g/dl (3.4-5.0); BLOOD UREA NITROGEN 27.6 mg/dL (7-18); CALCIUM 8.9 mg/dL (8.5-10.1)
[2020-12-18 09:35] LABS: CREATININE 1.2 mg/dL (0.55-1.3)
[2020-12-18 09:36] LABS: BILIRUBIN,TOTAL 0.3 mg/dL (0.2-1); TOT PROT 6.5 g/dl (6.4-8.2)
[2020-12-18] MEDS: GABAPENTIN 300 MG CAPSULE PO SCH ×2 (10:30→21:49)
[2020-12-18] MEDS: ISOSORBIDE MONONITRATE 30 MG TAB.SR.24H (FP) PO SCH (10:30)
[2020-12-18] MEDS: RAMIPRIL 1.25 MG CAPSULE PO SCH (10:31)
[2020-12-18] MEDS: FENOFIBRIC ACID 135 MG CAP PO SCH (10:31)
[2020-12-18] MEDS: FERROUS SO4 325 MG TABLET (FP) PO SCH (10:31)
[2020-12-18] MEDS: METOPROLOL TARTRATE 25 MG TABLET (FP) PO SCH ×2 (10:31→21:49)
[2020-12-18] MEDS: MINERAL OIL/PET HY-PHL TOPICAL OINTMENT 454 GM JAR TP SCH (10:54)
[2020-12-18] MEDS: BACITRACIN 15 GM TUBE TOPICAL OINTMENT TP SCH (10:55)
[2020-12-18] MEDS: POLYETHYLENE GLYCOL (HEALTHYLAX) 3350 17 GM PACKET PO SCH ×2 (10:56→11:00)
[2020-12-18] MEDS: ZINC OXIDE 20% TOPICAL OINTMENT 30 GM TUBE TP SCH (10:57)
[2020-12-18] MEDS: AMMONIUM LACTATE 12% LOTION 225 GM BOTTLE TP SCH ×2 (10:57→21:48)
[2020-12-18] MEDS: ENOXAPARIN NA (PORCINE) 40 MG/0.4 ML DISP.SYRIN SQ SCH (11:07)
[2020-12-18] MEDS ORDERED: COD LIVER OIL/ZINC OXIDE PASTE 56 GM TUBE TP PRN (12:23)
[2020-12-18] MEDS ORDERED: LACTOBACILLUS ACIDOPHILUS 1 TABLET PO SCH (14:00)
[2020-12-18] MEDS ORDERED: CLINDAMYCIN HCL 150 MG CAPSULE (FP) PO SCH (18:00)
[2020-12-18] MEDS ORDERED: INSULIN (NOVOLOG) ASPART 100 UNITS/ML 10ML VIAL ONE (20:57)
[2020-12-18 22:40] VITALS: BP 115/56; PULSE 71; TEMP 98.3
== END 2020-12-19 01:00 | DRG 580 ==
LOC: JER 11:28 → JERBED 13:25 → J8W 23:20
PROVIDERS: ADMIT Internal Medicine; ATTEND Nurse Practitioner Acute Care
PROC: 3E10X8Z Irrigation of Skin and Mucous Membranes using Irrigating Substance (ICD-10-PCS; 2020-12-09)
PROC: 0J9D0ZZ Drainage of Right Upper Arm Subcutaneous Tissue and Fascia, Open Approach (ICD-10-PCS; principal; 2020-12-09 15:30)
DX: L02.413 Cutaneous abscess of right upper limb (principal); L03.115 Cellulitis of right lower limb; L03.116 Cellulitis of left lower limb; J45.909 Unspecified asthma, uncomplicated; I25.10 Atherosclerotic heart disease of native coronary artery without angina pectoris; I10 Essential (primary) hypertension; E78.5 Hyperlipidemia, unspecified; E11.51 Type 2 diabetes mellitus with diabetic peripheral angiopathy without gangrene; E11.40 Type 2 diabetes mellitus with diabetic neuropathy, unspecified; E03.9 Hypothyroidism, unspecified; E66.9 Obesity, unspecified; Z68.35 Body mass index [BMI] 35.0-35.9, adult; I87.2 Venous insufficiency (chronic) (peripheral); B95.62 Methicillin resistant Staphylococcus aureus infection as the cause of diseases classified elsewhere; L30.9 Dermatitis, unspecified; Z85.42 Personal history of malignant neoplasm of other parts of uterus; Z96.611 Presence of right artificial shoulder joint
CPT/HCPCS: 36415; 71045-TC-FY; 73201-TC-RT; 76882-TC-RT-FY; 80048; 80053; 81003; 82550; 82553; 82962; 83036; 83605; 83735; 84484; 85025; 85610; 85730; 86140; 86850; 86900; 86901; 87040; 87070; 87186; 87205; 93005; 93010; 93971-TC; 94760; 97116-GP; 97162-GP; 99285-25; C9803; J0131; J0878; Q9967; U0003; U0005

== ENCOUNTER 2021-04-10 15:42 | Inpatient (IN) | payer OTHER, BC ==
[2021-04-10] MEDS ORDERED: ACETAMINOPHEN 1000 MG/100 ML BAG IVPB ONE (16:50)
[2021-04-10] MEDS ORDERED: ACETAMINOPHEN INJECTION 100 ML IVPB ONE (16:55)
[2021-04-10 17:26] LABS: VENOUS BASE EXCESS -3.8 mmol/L (-2-2); VENOUS O2 SATURATION 83.4 % (70-80); VENOUS PCO2 37.5 mmHg (38-52); VENOUS PH 7.366 (7.310-7.410)
[2021-04-10 17:34] LABS: BASO % 0.5 % (0-2.0); EOS % 0.6 % (0-4.5); EPI CELLS 28 /uL (0-25.1); HEMOGLOBIN 11.6 GM/dL (10.7-15.3); HYALINE CASTS 4 /uL (0-3.1); LYMPH % 12.7 % (8-40); MCH 23.2 pg (25.7-33.7); MCHC 31.3 g/dl (32.0-36.0); MEAN CELL VOLUME 74.2 fl (80-96); MONO % 6.3 % (3.8-10.2); NEUT % 79.9 % (42.8-82.8); PLATELET COUNT 259 10^3/uL (134-434); RBC 4.99 M/mm3 (3.60-5.2); RDW 19.1 % (11.6-15.6); URINE APPEARANCE TURBID; URINE BACTERIA 4775 /uL (0-1359); URINE BILIRUBIN NEGATIVE (NEGATIVE); URINE COLOR YELLOW; URINE GLUCOSE (UA) 3+ (NEGATIVE); URINE KETONE TRACE (NEGATIVE); URINE LEUK ESTERASE 3+ (NEGATIVE); URINE NITRITE NEGATIVE (NEGATIVE); URINE PROTEIN 2+ (NEGATIVE); URINE UROBILINOGEN 0.2 mg/dL (0.2-1.0); URINE WBC 15814 /uL (0-25.8); WHITE BLOOD COUNT 11.9 K/mm3 (4.0-10.0)
[2021-04-10] MEDS ORDERED: PIPERACILLIN/TAZOB 3.375 GM 3.375 GM in DEXTROSE 5%-WATER - 50 ML IVPB ONE (17:39)
[2021-04-10] MEDS ORDERED: VANCOMYCIN HCL 1,500 MG in DEXTROSE 5%-WATER - 500 ML IVPB ONE (17:39)
[2021-04-10 17:40] LABS: INR 1.15 (0.83-1.09); PROTHROMBIN TIME (PATIENT) 13.2 SEC (9.7-13.0)
[2021-04-10 17:43] LABS: ACTIVATED PTT 26.2 SECONDS (25.2-36.5)
[2021-04-10] MEDS ORDERED: LACTATED RINGERS SOLUTION 1,000 ML/1,000 ML INFUS.BAG IV SCH (17:45)
[2021-04-10 17:47] LABS: CHLORIDE 103 mmol/L (98-107); SODIUM 136 mmol/L (136-145)
[2021-04-10 17:51] LABS: ALBUMIN 3.7 g/dl (3.4-5.0); ANION GAP 12 MMOL/L (8-16); BLOOD UREA NITROGEN 19.9 mg/dL (7-18); CALCIUM 9.3 mg/dL (8.5-10.1); CO2 21 mmol/L (21-32); GLUCOSE,RANDOM 283 mg/dL (74-106)
[2021-04-10 17:54] LABS: CREATININE 1.2 mg/dL (0.55-1.3); SGOT/AST 19 U/L (15-37); SGPT/ALT 16 U/L (13-61)
[2021-04-10] MEDS ORDERED: ONDANSETRON 4 MG/2 ML VIAL IVPUSH ONE (17:54)
[2021-04-10 17:56] LABS: BILIRUBIN,TOTAL 0.4 mg/dL (0.2-1); TOT PROT 7.7 g/dl (6.4-8.2)
[2021-04-10 17:57] LABS: ALK PHOS 82 U/L (45-117)
[2021-04-10] MEDS ORDERED: VANCOMYCIN PREMIX 1.5 GM 1,500 MG/300 ML BAG IVPB ONE (17:59)
[2021-04-10 18:01] LABS: URINE RBC 493.3 /uL (0-23.9); YEAST MODERATE (NEGATIVE)
[2021-04-10] MEDS ORDERED: ONDANSETRON 4 MG/2 ML VIAL ONE (18:41)
[2021-04-10] MEDS ORDERED: PIPERACILLIN/TAZOB 3.375 GM 3.375 GM/50 ML BAG IVPB ONE (18:41)
[2021-04-10] MEDS: LACTATED RINGERS SOLUTION 1,000 ML/1,000 ML INFUS.BAG IV SCH (20:19)
[2021-04-11] MEDS ORDERED: PIPERACILLIN/TAZOB 3.375 GM 3.375 GM/50 ML BAG IVPB ONE (00:22)
[2021-04-11] MEDS ORDERED: PIPERACILLIN/TAZOB 3.375 GM 3.375 GM in DEXTROSE 5%-WATER - 50 ML IVPB ONE (00:45)
[2021-04-11] MEDS ORDERED: GABAPENTIN 300 MG CAPSULE PO SCH (01:45)
[2021-04-11] MEDS ORDERED: ZINC OXIDE/PANTHENOL/VITAMIN E 56 GM TUBE TP PRN (02:13)
[2021-04-11] MEDS ORDERED: DEXTROSE 5%-WATER - 50 ML IVPB ONE ×2 (02:43→08:45)
[2021-04-11] MEDS ORDERED: PIPERACILLIN/TAZOBACTAM 3.375 GM VIAL IVPB ONE (02:43)
[2021-04-11 04:14] VITALS: BMI 32.5
[2021-04-11] MEDS: LEVOTHYROXINE NA 75 MCG TABLET (FP) PO SCH (07:33)
[2021-04-11] MEDS ORDERED: PIPERACILLIN/TAZOBACTAM 2.25 GM VIAL IVPB ONE (08:45)
[2021-04-11 08:53] LABS: HEMATOCRIT 33.6 % (32.4-45.2); HEMOGLOBIN 10.7 GM/dL (10.7-15.3); MCH 23.6 pg (25.7-33.7); MCHC 31.8 g/dl (32.0-36.0); PLATELET COUNT 219 10^3/uL (134-434); RBC 4.54 M/mm3 (3.60-5.2); RDW 19.2 % (11.6-15.6); WHITE BLOOD COUNT 10.1 K/mm3 (4.0-10.0)
[2021-04-11] MEDS: PIPERACILLIN/TAZOB 2.25 GM 2.25 GM in DEXTROSE 5%-WATER - 50 ML IVPB SCH ×4 (09:15→15:33)
[2021-04-11] MEDS: METOPROLOL TARTRATE 25 MG TABLET (FP) PO SCH ×2 (09:15→22:47)
[2021-04-11] MEDS: ENOXAPARIN NA (PORCINE) 40 MG/0.4 ML DISP.SYRIN SQ SCH (09:15)
[2021-04-11] MEDS: OMEGA-3 ACID ETHYL ESTERS (FATTY-ACIDS) 1 GM CAPSULE (FP) PO SCH (09:16)
[2021-04-11] MEDS: CHOLECALCIFEROL (VIT D3) 1,000 UNIT (25 MCG) TABLET PO SCH (09:16)
[2021-04-11] MEDS: POLYETHYLENE GLYCOL (HEALTHYLAX) 3350 17 GM PACKET PO SCH ×2 (09:18→22:48)
[2021-04-11 09:20] LABS: ALBUMIN 3.1 g/dl (3.4-5.0); BLOOD UREA NITROGEN 18.2 mg/dL (7-18); CALCIUM 9.2 mg/dL (8.5-10.1); MAGNESIUM 1.7 mg/dL (1.8-2.4)
[2021-04-11 09:23] LABS: CREATININE 1.2 mg/dL (0.55-1.3)
[2021-04-11 09:24] LABS: BILIRUBIN,TOTAL 0.6 mg/dL (0.2-1)
[2021-04-11 09:25] LABS: TOT PROT 6.8 g/dl (6.4-8.2)
[2021-04-11] MEDS ORDERED: VANCOMYCIN HCL 1,500 MG/500 ML BAG IVPB ONE (10:00)
[2021-04-11] MEDS: ZINC OXIDE 20% TOPICAL OINTMENT 30 GM TUBE TP SCH ×2 (10:23→22:49)
[2021-04-11] MEDS: RAMIPRIL 2.5 MG CAPSULE PO SCH (10:23)
[2021-04-11] MEDS ORDERED: CEFTRIAXONE 2 GM in DEXTROSE 5%-WATER 2 GM/100 ML BAG IVPB SCH (15:15)
[2021-04-11] MEDS ORDERED: INSULIN SLIDING SCALE (NOVOLOG) 1 VIAL SQ SCH (16:30)
[2021-04-11] MEDS: INSULIN SLIDING SCALE (NOVOLOG) 1 VIAL SQ SCH ×2 (17:23→22:51)
[2021-04-11] MEDS ORDERED: ATORVASTATIN CA 20 MG TABLET (FP) PO SCH (22:00)
[2021-04-11] MEDS: LACTATED RINGERS SOLUTION 1,000 ML/1,000 ML INFUS.BAG IV SCH (22:57)
[2021-04-12] MEDS ORDERED: CEFTRIAXONE 2 GM in SODIUM CHLORIDE 100 ML IVPB SCH (05:28)
[2021-04-12] MEDS: LEVOTHYROXINE NA 75 MCG TABLET (FP) PO SCH (06:36)
[2021-04-12] MEDS: INSULIN SLIDING SCALE (NOVOLOG) 1 VIAL SQ SCH ×4 (06:36→21:27)
[2021-04-12 10:45] LABS: HEMATOCRIT 35.3 % (32.4-45.2); HEMOGLOBIN 11.3 GM/dL (10.7-15.3); MCH 23.8 pg (25.7-33.7); MCHC 32.1 g/dl (32.0-36.0); MEAN PLT VOLUME 7.7 fl (7.5-11.1); PLATELET COUNT 204 10^3/uL (134-434); RBC 4.77 M/mm3 (3.60-5.2); RDW 19.1 % (11.6-15.6); WHITE BLOOD COUNT 9.2 K/mm3 (4.0-10.0)
[2021-04-12] MEDS: POLYETHYLENE GLYCOL (HEALTHYLAX) 3350 17 GM PACKET PO SCH ×3 (10:55→21:34)
[2021-04-12] MEDS: CHOLECALCIFEROL (VIT D3) 1,000 UNIT (25 MCG) TABLET PO SCH (10:58)
[2021-04-12] MEDS: ENOXAPARIN NA (PORCINE) 40 MG/0.4 ML DISP.SYRIN SQ SCH (10:58)
[2021-04-12] MEDS: CEFTRIAXONE 2 GM in DEXTROSE 5%-WATER 100 ML IVPB SCH (10:58)
[2021-04-12] MEDS: RAMIPRIL 2.5 MG CAPSULE PO SCH (10:58)
[2021-04-12] MEDS: METOPROLOL TARTRATE 25 MG TABLET (FP) PO SCH ×2 (10:58→21:26)
[2021-04-12] MEDS: OMEGA-3 ACID ETHYL ESTERS (FATTY-ACIDS) 1 GM CAPSULE (FP) PO SCH (10:59)
[2021-04-12] MEDS: ZINC OXIDE 20% TOPICAL OINTMENT 30 GM TUBE TP SCH ×2 (10:59→21:27)
[2021-04-12 11:03] LABS: ALBUMIN 2.9 g/dl (3.4-5.0); CALCIUM 9.1 mg/dL (8.5-10.1)
[2021-04-12 11:04] LABS: MAGNESIUM 1.6 mg/dL (1.8-2.4)
[2021-04-12 11:08] LABS: BILIRUBIN,TOTAL 0.5 mg/dL (0.2-1)
[2021-04-12 11:09] LABS: TOT PROT 6.9 g/dl (6.4-8.2)
[2021-04-12] MEDS ORDERED: LACTATED RINGERS SOLUTION 1,000 ML/1,000 ML INFUS.BAG IV SCH ×2 (11:25→16:30)
[2021-04-12] MEDS ORDERED: ZINC OXIDE/PANTHENOL/VITAMIN E 56 GM TUBE TP PRN (11:25)
[2021-04-12] MEDS: ATORVASTATIN CA 20 MG TABLET (FP) PO SCH (21:26)
[2021-04-12] MEDS ORDERED: INSULIN (LEVEMIR) 100 UNITS/ML UNITS SQ SCH (22:00)
[2021-04-13] MEDS: LEVOTHYROXINE NA 50 MCG TABLET (FP) PO SCH (06:04)
[2021-04-13] MEDS: INSULIN SLIDING SCALE (NOVOLOG) 1 VIAL SQ SCH ×3 (06:04→23:11)
[2021-04-13] MEDS: METOPROLOL TARTRATE 25 MG TABLET (FP) PO SCH ×2 (10:38→23:10)
[2021-04-13] MEDS: RAMIPRIL 2.5 MG CAPSULE PO SCH (10:38)
[2021-04-13] MEDS: OMEGA-3 ACID ETHYL ESTERS (FATTY-ACIDS) 1 GM CAPSULE (FP) PO SCH (10:38)
[2021-04-13] MEDS: ZINC OXIDE 20% TOPICAL OINTMENT 30 GM TUBE TP SCH ×2 (10:39→23:11)
[2021-04-13] MEDS: POLYETHYLENE GLYCOL (HEALTHYLAX) 3350 17 GM PACKET PO SCH ×2 (10:39→23:10)
[2021-04-13] MEDS: CHOLECALCIFEROL (VIT D3) 1,000 UNIT (25 MCG) TABLET PO SCH (10:39)
[2021-04-13] MEDS: CEFTRIAXONE 2 GM in DEXTROSE 5%-WATER 100 ML IVPB SCH (10:39)
[2021-04-13] MEDS: ENOXAPARIN NA (PORCINE) 40 MG/0.4 ML DISP.SYRIN SQ SCH (10:40)
[2021-04-13 11:34] LABS: BASO % 0.6 % (0-2.0); EOS % 1.9 % (0-4.5); HEMATOCRIT 34.8 % (32.4-45.2); LYMPH % 22.2 % (8-40); MCH 23.4 pg (25.7-33.7); MCHC 31.7 g/dl (32.0-36.0); MEAN CELL VOLUME 73.8 fl (80-96); MEAN PLT VOLUME 7.9 fl (7.5-11.1); MONO % 8.1 % (3.8-10.2); NEUT % 67.2 % (42.8-82.8); PLATELET COUNT 231 10^3/uL (134-434); RBC 4.72 M/mm3 (3.60-5.2); RDW 18.6 % (11.6-15.6)
[2021-04-13 12:08] LABS: CHLORIDE 96 mmol/L (98-107); SODIUM 133 mmol/L (136-145)
[2021-04-13 12:11] LABS: CALCIUM 9.2 mg/dL (8.5-10.1)
[2021-04-13 12:12] LABS: ALBUMIN 2.8 g/dl (3.4-5.0); ANION GAP 11 MMOL/L (8-16); BLOOD UREA NITROGEN 15.5 mg/dL (7-18); CO2 25 mmol/L (21-32)
[2021-04-13 12:15] LABS: PHOSPHOROUS 3.1 mg/dL (2.5-4.9); SGOT/AST 14 U/L (15-37); SGPT/ALT 19 U/L (13-61)
[2021-04-13 12:16] LABS: BILIRUBIN,TOTAL 0.4 mg/dL (0.2-1); TOT PROT 6.7 g/dl (6.4-8.2)
[2021-04-13 12:18] LABS: ALK PHOS 87 U/L (45-117); GLUCOSE,RANDOM 404 mg/dL (74-106)
[2021-04-13] MEDS ORDERED: INSULIN (LEVEMIR) 100 UNITS/ML UNITS SQ SCH (22:00)
[2021-04-13] MEDS: INSULIN (LEVEMIR) 100 UNITS/ML UNITS SQ SCH (23:10)
[2021-04-13] MEDS: ATORVASTATIN CA 20 MG TABLET (FP) PO SCH (23:10)
[2021-04-14] MEDS: INSULIN SLIDING SCALE (NOVOLOG) 1 VIAL SQ SCH ×5 (07:29→23:01)
[2021-04-14] MEDS: INSULIN (LEVEMIR) 100 UNITS/ML UNITS SQ SCH ×2 (07:56→22:50)
[2021-04-14] MEDS: LEVOTHYROXINE NA 50 MCG TABLET (FP) PO SCH (07:59)
[2021-04-14] MEDS: OMEGA-3 ACID ETHYL ESTERS (FATTY-ACIDS) 1 GM CAPSULE (FP) PO SCH (09:28)
[2021-04-14] MEDS: RAMIPRIL 2.5 MG CAPSULE PO SCH (09:28)
[2021-04-14] MEDS: CHOLECALCIFEROL (VIT D3) 1,000 UNIT (25 MCG) TABLET PO SCH (09:28)
[2021-04-14] MEDS: ENOXAPARIN NA (PORCINE) 40 MG/0.4 ML DISP.SYRIN SQ SCH (09:29)
[2021-04-14] MEDS: ZINC OXIDE 20% TOPICAL OINTMENT 30 GM TUBE TP SCH ×2 (09:29→22:51)
[2021-04-14] MEDS: METOPROLOL TARTRATE 25 MG TABLET (FP) PO SCH (09:29)
[2021-04-14] MEDS: CEPHALEXIN MONOHYDRATE 500 MG CAPSULE (UD) PO SCH ×3 (09:29→22:49)
[2021-04-14] MEDS: POLYETHYLENE GLYCOL (HEALTHYLAX) 3350 17 GM PACKET PO SCH ×2 (09:30→22:49)
[2021-04-14] MEDS ORDERED: METOPROLOL TARTRATE 25 MG TABLET (FP) PO ONE (12:00)
[2021-04-14] MEDS: METOPROLOL TARTRATE 50 MG TABLET (FP) PO SCH (22:50)
[2021-04-14] MEDS: ATORVASTATIN CA 20 MG TABLET (FP) PO SCH (22:51)
[2021-04-15] MEDS: CEPHALEXIN MONOHYDRATE 500 MG CAPSULE (UD) PO SCH ×3 (05:50→23:25)
[2021-04-15] MEDS: INSULIN SLIDING SCALE (NOVOLOG) 1 VIAL SQ SCH ×4 (06:44→23:46)
[2021-04-15] MEDS: LEVOTHYROXINE NA 50 MCG TABLET (FP) PO SCH (06:44)
[2021-04-15] MEDS: INSULIN (LEVEMIR) 100 UNITS/ML UNITS SQ SCH ×2 (06:44→23:46)
[2021-04-15] MEDS: FERROUS SO4 325 MG TABLET (FP) PO SCH (09:31)
[2021-04-15] MEDS: ENOXAPARIN NA (PORCINE) 40 MG/0.4 ML DISP.SYRIN SQ SCH (09:31)
[2021-04-15] MEDS: METOPROLOL TARTRATE 50 MG TABLET (FP) PO SCH ×2 (09:31→23:23)
[2021-04-15] MEDS: RAMIPRIL 2.5 MG CAPSULE PO SCH (09:31)
[2021-04-15] MEDS: OMEGA-3 ACID ETHYL ESTERS (FATTY-ACIDS) 1 GM CAPSULE (FP) PO SCH (09:31)
[2021-04-15] MEDS: ZINC OXIDE 20% TOPICAL OINTMENT 30 GM TUBE TP SCH ×2 (09:32→23:47)
[2021-04-15] MEDS: POLYETHYLENE GLYCOL (HEALTHYLAX) 3350 17 GM PACKET PO SCH ×2 (09:40→23:22)
[2021-04-15] MEDS: CHOLECALCIFEROL (VIT D3) 1,000 UNIT (25 MCG) TABLET PO SCH (09:41)
[2021-04-15 09:48] LABS: HEMATOCRIT 34.1 % (32.4-45.2); HEMOGLOBIN 11.2 GM/dL (10.7-15.3); MCH 24.1 pg (25.7-33.7); MEAN CELL VOLUME 73.1 fl (80-96); MEAN PLT VOLUME 7.8 fl (7.5-11.1); PLATELET COUNT 263 10^3/uL (134-434); RBC 4.67 M/mm3 (3.60-5.2); RDW 18.3 % (11.6-15.6); WHITE BLOOD COUNT 6.9 K/mm3 (4.0-10.0)
[2021-04-15 10:18] LABS: ALBUMIN 2.7 g/dl (3.4-5.0); CALCIUM 9.5 mg/dL (8.5-10.1)
[2021-04-15 10:19] LABS: BLOOD UREA NITROGEN 22.7 mg/dL (7-18); MAGNESIUM 2.1 mg/dL (1.8-2.4)
[2021-04-15 10:21] LABS: PHOSPHOROUS 3.9 mg/dL (2.5-4.9)
[2021-04-15 10:23] LABS: BILIRUBIN,TOTAL 0.3 mg/dL (0.2-1); TOT PROT 6.6 g/dl (6.4-8.2)
[2021-04-15] MEDS: INSULIN (NOVOLOG) ASPART 100 UNITS/ML 10ML VIAL SQ SCH (17:19)
[2021-04-15] MEDS: ATORVASTATIN CA 20 MG TABLET (FP) PO SCH (23:34)
[2021-04-16] MEDS ORDERED: SODIUM CHLORIDE 500 ML IV STA (01:47)
[2021-04-16] MEDS: CEPHALEXIN MONOHYDRATE 500 MG CAPSULE (UD) PO SCH ×2 (05:39→14:54)
[2021-04-16] MEDS: INSULIN (LEVEMIR) 100 UNITS/ML UNITS SQ SCH (06:49)
[2021-04-16] MEDS ORDERED: sitaGLIPtin PHOSPHATE 50 MG TABLET PO SCH (07:00)
[2021-04-16] MEDS: metFORMIN HCL 500 MG TABLET (FP) PO SCH ×2 (07:01→07:22)
[2021-04-16] MEDS: LEVOTHYROXINE NA 50 MCG TABLET (FP) PO SCH (07:01)
[2021-04-16] MEDS: INSULIN SLIDING SCALE (NOVOLOG) 1 VIAL SQ SCH ×2 (07:01→12:03)
[2021-04-16] MEDS: INSULIN (NOVOLOG) ASPART 100 UNITS/ML 10ML VIAL SQ SCH ×2 (07:01→12:02)
[2021-04-16] MEDS: RAMIPRIL 2.5 MG CAPSULE PO SCH (09:13)
[2021-04-16] MEDS: ENOXAPARIN NA (PORCINE) 40 MG/0.4 ML DISP.SYRIN SQ SCH (09:13)
[2021-04-16] MEDS: METOPROLOL TARTRATE 50 MG TABLET (FP) PO SCH (09:14)
[2021-04-16] MEDS: POLYETHYLENE GLYCOL (HEALTHYLAX) 3350 17 GM PACKET PO SCH (09:14)
[2021-04-16] MEDS: ZINC OXIDE 20% TOPICAL OINTMENT 30 GM TUBE TP SCH (09:14)
[2021-04-16] MEDS: CHOLECALCIFEROL (VIT D3) 1,000 UNIT (25 MCG) TABLET PO SCH (09:14)
[2021-04-16] MEDS: OMEGA-3 ACID ETHYL ESTERS (FATTY-ACIDS) 1 GM CAPSULE (FP) PO SCH (11:54)
[2021-04-16] MEDS: FERROUS SO4 325 MG TABLET (FP) PO SCH (11:54)
[2021-04-16 16:17] VITALS: BP 112/63; PULSE 76; TEMP 97.9
== END 2021-04-16 18:51 | DRG 872 ==
LOC: JER 15:42 → JERBED 23:50 → J6WEST-2 04-11 02:41 → UNDODISIN 04-16 17:14
PROVIDERS: ADMIT Internal Medicine
DX: A41.9 Sepsis, unspecified organism (principal); N39.0 Urinary tract infection, site not specified; E03.9 Hypothyroidism, unspecified; E66.9 Obesity, unspecified; J45.909 Unspecified asthma, uncomplicated; E11.65 Type 2 diabetes mellitus with hyperglycemia; I10 Essential (primary) hypertension; E78.5 Hyperlipidemia, unspecified; I25.10 Atherosclerotic heart disease of native coronary artery without angina pectoris; I87.2 Venous insufficiency (chronic) (peripheral); Z68.32 Body mass index [BMI] 32.0-32.9, adult; D64.9 Anemia, unspecified; E11.40 Type 2 diabetes mellitus with diabetic neuropathy, unspecified
CPT/HCPCS: 36415; 71045-TC-FY; 74177-TC; 80053; 81003; 82272; 82550; 82728; 82803; 82962; 83036; 83540; 83550; 83605; 83735; 84100; 84439; 84443; 84484; 85025; 85027; 85610; 85730; 86850; 86900; 86901; 87040; 87086; 87186; 87804; 87807; 93005; 93010; 97116-GP; 97162-GP; 99285-25; C9803; J0131; Q9967; U0003; U0005

== ENCOUNTER 2021-04-21 12:36 | Emergency (ER) | payer OTHER, BC ==
[2021-04-21 13:06] VITALS: BMI 32.3
[2021-04-21] MEDS ORDERED: VANCOMYCIN 1 GM in D5W (PRE-DOCKED) 1,000 MG/250 ML IVPB ONE (15:06)
[2021-04-21] MEDS ORDERED: VANCOMYCIN 1 GRAM (PRE-DOCKED) 1,000 MG/250 ML BAG IVPB ONE (16:23)
[2021-04-21 17:12] LABS: BASO % 0.4 % (0-2.0); HEMATOCRIT 33.1 % (32.4-45.2); HEMOGLOBIN 10.7 GM/dL (10.7-15.3); MCHC 32.3 g/dl (32.0-36.0); MEAN CELL VOLUME 74.3 fl (80-96); MEAN PLT VOLUME 7.6 fl (7.5-11.1); MONO % 6.3 % (3.8-10.2); NEUT % 61.3 % (42.8-82.8); PLATELET COUNT 281 10^3/uL (134-434); RBC 4.45 M/mm3 (3.60-5.2); RDW 19.1 % (11.6-15.6); WHITE BLOOD COUNT 7.8 K/mm3 (4.0-10.0)
[2021-04-21 17:14] VITALS: TEMP 98.3
[2021-04-21 17:41] LABS: CALCIUM 9.4 mg/dL (8.5-10.1)
[2021-04-21 17:42] LABS: ALBUMIN 2.9 g/dl (3.4-5.0); BLOOD UREA NITROGEN 32.6 mg/dL (7-18)
[2021-04-21 17:45] LABS: CREATININE 1.2 mg/dL (0.55-1.3)
[2021-04-21 17:46] LABS: BILIRUBIN,TOTAL 0.5 mg/dL (0.2-1)
[2021-04-22 01:53] VITALS: BP 115/50; PULSE 80
== END 2021-04-22 04:04 ==
LOC: JER 12:36 → JERBED 15:13 → UNDOADMIN 15:13 → JER 04-22 04:04
PROC: 0X953ZZ Drainage of Left Axilla, Percutaneous Approach (ICD-10-PCS; principal; 2021-04-21)
PROC: 3E03329 Introduction of Other Anti-infective into Peripheral Vein, Percutaneous Approach (ICD-10-PCS; 2021-04-21)
DX: L02.412 Cutaneous abscess of left axilla (principal)
CPT/HCPCS: 36415; 80053; 85025; 87040; 99284-25

== ENCOUNTER 2021-05-22 18:05 | Inpatient (IN) | payer BC, OTHER ==
[~2021-05-22 18:05] MED LIST: PIPERACILLIN/TAZOB 3.375 GM 3.375 GM in DEXTROSE 5%-WATER - 50 ML IVPB SCH
[2021-05-22 18:28] VITALS: BMI 31.1
[2021-05-22] MEDS ORDERED: ACETAMINOPHEN 1000 MG/100 ML BAG IVPB ONE (18:55)
[2021-05-22 19:49] LABS: BASO % 0.6 % (0-2.0); EOS % 1.6 % (0-4.5); HEMATOCRIT 39.9 % (32.4-45.2); HEMOGLOBIN 12.6 GM/dL (10.7-15.3); MCH 24.6 pg (25.7-33.7); MCHC 31.4 g/dl (32.0-36.0); MEAN CELL VOLUME 78.2 fl (80-96); MONO % 6.9 % (3.8-10.2); NEUT % 59.9 % (42.8-82.8); PLATELET COUNT 316 10^3/uL (134-434); RBC 5.11 M/mm3 (3.60-5.2); RDW 19.7 % (11.6-15.6); WHITE BLOOD COUNT 11.5 K/mm3 (4.0-10.0)
[2021-05-22 20:00] LABS: INR 1.08 (0.83-1.09); PROTHROMBIN TIME (PATIENT) 12.4 SEC (9.7-13.0)
[2021-05-22 20:02] LABS: ACTIVATED PTT 30.8 SECONDS (25.2-36.5)
[2021-05-22 20:12] LABS: CALCIUM 9.7 mg/dL (8.5-10.1)
[2021-05-22 20:14] LABS: ALBUMIN 3.8 g/dl (3.4-5.0); BLOOD UREA NITROGEN 41.6 mg/dL (7-18)
[2021-05-22 20:17] LABS: CREATININE 1.5 mg/dL (0.55-1.3)
[2021-05-22 20:18] LABS: BILIRUBIN,TOTAL 0.5 mg/dL (0.2-1); TOT PROT 8.2 g/dl (6.4-8.2)
[2021-05-22] MEDS ORDERED: ACETAMINOPHEN INJECTION 100 ML IVPB ONE (20:24)
[2021-05-22] MEDS ORDERED: SODIUM CHLORIDE 1,000 ML IV STA (20:28)
[2021-05-22 23:20] LABS: EPI CELLS >36 /uL (0-25.1); HYALINE CASTS 99 /uL (0-3.1); URINE APPEARANCE TURBID; URINE BACTERIA >9,000 /uL (0-1359); URINE BILIRUBIN NEGATIVE (NEGATIVE); URINE COLOR YELLOW; URINE GLUCOSE (UA) 3+ (NEGATIVE); URINE KETONE TRACE (NEGATIVE); URINE LEUK ESTERASE 2+ (NEGATIVE); URINE NITRITE NEGATIVE (NEGATIVE); URINE PROTEIN 2+ (NEGATIVE); URINE UROBILINOGEN 0.2 mg/dL (0.2-1.0); URINE WBC 28197 /uL (0-25.8)
[2021-05-22 23:33] LABS: URINE RBC 755.9 /uL (0-23.9)
[2021-05-22] MEDS ORDERED: PIPERACILLIN/TAZOB 3.375 GM 3.375 GM/50 ML BAG IVPB ONE (23:38)
[2021-05-22] MEDS: PIPERACILLIN/TAZOB 3.375 GM 3.375 GM in DEXTROSE 5%-WATER - 50 ML IVPB SCH (23:45)
[2021-05-22] MEDS: SODIUM CHLORIDE 1,000 ML IV SCH (23:45)
[2021-05-23] MEDS: INSULIN SLIDING SCALE (NOVOLOG) 1 VIAL SQ SCH ×5 (01:25→22:03)
[2021-05-23] MEDS ORDERED: PIPERACILLIN/TAZOBACTAM 3.375 GM VIAL IVPB ONE (02:09)
[2021-05-23] MEDS ORDERED: DEXTROSE 5%-WATER - 50 ML IVPB ONE ×2 (02:09→10:52)
[2021-05-23] MEDS: PIPERACILLIN/TAZOB 3.375 GM 3.375 GM in DEXTROSE 5%-WATER - 50 ML IVPB SCH ×4 (02:21→22:43)
[2021-05-23] MEDS ORDERED: HEPARIN NA (PORCINE) 5,000 UNITS/ML 1ML VIAL SQ SCH (06:00)
[2021-05-23] MEDS ORDERED: INSULIN (LEVEMIR) 100 UNITS/ML UNITS SQ SCH (07:00)
[2021-05-23] MEDS: LEVOTHYROXINE NA 75 MCG TABLET (FP) PO SCH (08:12)
[2021-05-23 08:28] LABS: BASO % 0.5 % (0-2.0); HEMATOCRIT 34.4 % (32.4-45.2); HEMOGLOBIN 11.4 GM/dL (10.7-15.3); LYMPH % 32.9 % (8-40); MCH 25.5 pg (25.7-33.7); MCHC 33.1 g/dl (32.0-36.0); MEAN PLT VOLUME 7.7 fl (7.5-11.1); MONO % 7.6 % (3.8-10.2); PLATELET COUNT 207 10^3/uL (134-434); RBC 4.46 M/mm3 (3.60-5.2); RDW 19.1 % (11.6-15.6); WHITE BLOOD COUNT 6.4 K/mm3 (4.0-10.0)
[2021-05-23 08:50] LABS: ALBUMIN 3.1 g/dl (3.4-5.0); BLOOD UREA NITROGEN 34.8 mg/dL (7-18); CALCIUM 8.3 mg/dL (8.5-10.1); MAGNESIUM 1.6 mg/dL (1.8-2.4)
[2021-05-23 08:51] LABS: CREATININE 1.2 mg/dL (0.55-1.3)
[2021-05-23 08:53] LABS: TOT PROT 6.8 g/dl (6.4-8.2)
[2021-05-23] MEDS: METOPROLOL TARTRATE 50 MG TABLET (FP) PO SCH ×2 (10:27→21:53)
[2021-05-23] MEDS: ACETAMINOPHEN 325 MG TABLET (FP) PO PRN ×2 (10:27→21:53)
[2021-05-23] MEDS: POLYETHYLENE GLYCOL (HEALTHYLAX) 3350 17 GM PACKET PO SCH ×2 (10:29→21:53)
[2021-05-23] MEDS ORDERED: cefTRIAXone SODIUM 1 GM VIAL ONE (10:52)
[2021-05-23] MEDS: CEFTRIAXONE 1 GM in DEXTROSE 5%-WATER - 50 ML IVPB SCH (10:52)
[2021-05-23] MEDS: CLOTRIMAZOLE 1% CREAM TP SCH ×2 (14:04→22:04)
[2021-05-23] MEDS: ATORVASTATIN CA 20 MG TABLET (FP) PO SCH (21:53)
[2021-05-23] MEDS: INSULIN (LEVEMIR) 100 UNITS/ML UNITS SQ SCH (22:04)
[2021-05-24] MEDS ORDERED: MELATONIN 5 MG TABLETS PO ONE (02:12)
[2021-05-24] MEDS: SODIUM CHLORIDE 1,000 ML IV SCH ×2 (02:33→02:34)
[2021-05-24] MEDS: LEVOTHYROXINE NA 75 MCG TABLET (FP) PO SCH (06:35)
[2021-05-24] MEDS: INSULIN (LEVEMIR) 100 UNITS/ML UNITS SQ SCH ×2 (06:41→21:40)
[2021-05-24] MEDS: INSULIN SLIDING SCALE (NOVOLOG) 1 VIAL SQ SCH ×4 (06:42→21:41)
[2021-05-24 08:52] LABS: BASO % 0.6 % (0-2.0); EOS % 2.3 % (0-4.5); HEMATOCRIT 34.1 % (32.4-45.2); HEMOGLOBIN 10.9 GM/dL (10.7-15.3); LYMPH % 34.9 % (8-40); MCH 24.5 pg (25.7-33.7); MEAN CELL VOLUME 76.6 fl (80-96); MONO % 7.1 % (3.8-10.2); NEUT % 55.1 % (42.8-82.8); PLATELET COUNT 200 10^3/uL (134-434); RBC 4.45 M/mm3 (3.60-5.2); RDW 19.1 % (11.6-15.6); WHITE BLOOD COUNT 5.7 K/mm3 (4.0-10.0)
[2021-05-24 09:14] LABS: ALBUMIN 2.8 g/dl (3.4-5.0)
[2021-05-24 09:15] LABS: BLOOD UREA NITROGEN 24.2 mg/dL (7-18)
[2021-05-24 09:16] LABS: CALCIUM 8.5 mg/dL (8.5-10.1)
[2021-05-24 09:18] LABS: CREATININE 1.1 mg/dL (0.55-1.3)
[2021-05-24 09:19] LABS: BILIRUBIN,TOTAL 0.3 mg/dL (0.2-1); TOT PROT 6.5 g/dl (6.4-8.2)
[2021-05-24] MEDS ORDERED: cefTRIAXone SODIUM 1 GM VIAL ONE (09:54)
[2021-05-24] MEDS ORDERED: DEXTROSE 5%-WATER - 50 ML IVPB ONE (09:54)
[2021-05-24] MEDS: CLOTRIMAZOLE 1% CREAM TP SCH ×2 (09:56→21:41)
[2021-05-24] MEDS: METOPROLOL TARTRATE 50 MG TABLET (FP) PO SCH ×2 (09:56→21:40)
[2021-05-24] MEDS: POLYETHYLENE GLYCOL (HEALTHYLAX) 3350 17 GM PACKET PO SCH ×3 (09:56→21:19)
[2021-05-24] MEDS: CEFTRIAXONE 1 GM in DEXTROSE 5%-WATER - 50 ML IVPB SCH (09:56)
[2021-05-24] MEDS: ATORVASTATIN CA 20 MG TABLET (FP) PO SCH (21:40)
[2021-05-24] MEDS: ACETAMINOPHEN 325 MG TABLET (FP) PO PRN (21:41)
[2021-05-25] MEDS: LEVOTHYROXINE NA 50 MCG TABLET (FP) PO SCH (06:29)
[2021-05-25] MEDS: INSULIN (LEVEMIR) 100 UNITS/ML UNITS SQ SCH ×2 (06:29→21:29)
[2021-05-25] MEDS: INSULIN SLIDING SCALE (NOVOLOG) 1 VIAL SQ SCH ×4 (06:30→21:29)
[2021-05-25] MEDS ORDERED: LEVOTHYROXINE NA 50 MCG TABLET (FP) PO SCH (06:30)
[2021-05-25 07:15] LABS: BASO % 0.7 % (0-2.0); EOS % 2.5 % (0-4.5); HEMATOCRIT 36.3 % (32.4-45.2); HEMOGLOBIN 11.7 GM/dL (10.7-15.3); LYMPH % 32.4 % (8-40); MCH 24.8 pg (25.7-33.7); MCHC 32.4 g/dl (32.0-36.0); MEAN CELL VOLUME 76.6 fl (80-96); MEAN PLT VOLUME 8.1 fl (7.5-11.1); MONO % 6.7 % (3.8-10.2); NEUT % 57.7 % (42.8-82.8); PLATELET COUNT 218 10^3/uL (134-434); RBC 4.74 M/mm3 (3.60-5.2); WHITE BLOOD COUNT 6.5 K/mm3 (4.0-10.0)
[2021-05-25 07:27] LABS: CALCIUM 8.8 mg/dL (8.5-10.1)
[2021-05-25 07:28] LABS: BLOOD UREA NITROGEN 20.8 mg/dL (7-18)
[2021-05-25 07:31] LABS: CREATININE 1.2 mg/dL (0.55-1.3)
[2021-05-25 07:32] LABS: BILIRUBIN,TOTAL 0.3 mg/dL (0.2-1)
[2021-05-25 07:33] LABS: TOT PROT 6.8 g/dl (6.4-8.2)
[2021-05-25] MEDS ORDERED: DEXTROSE 5%-WATER - 50 ML IVPB ONE (09:19)
[2021-05-25] MEDS ORDERED: cefTRIAXone SODIUM 1 GM VIAL ONE (09:19)
[2021-05-25] MEDS: POLYETHYLENE GLYCOL (HEALTHYLAX) 3350 17 GM PACKET PO SCH ×2 (09:29→21:25)
[2021-05-25] MEDS: CLOTRIMAZOLE 1% CREAM TP SCH ×2 (09:29→21:29)
[2021-05-25] MEDS: CEFTRIAXONE 1 GM in DEXTROSE 5%-WATER - 50 ML IVPB SCH (09:29)
[2021-05-25] MEDS: METOPROLOL TARTRATE 50 MG TABLET (FP) PO SCH ×2 (09:29→21:29)
[2021-05-25] MEDS: ACETAMINOPHEN 325 MG TABLET (FP) PO PRN ×2 (17:07→21:30)
[2021-05-25] MEDS: ATORVASTATIN CA 20 MG TABLET (FP) PO SCH (21:29)
[2021-05-25] MEDS ORDERED: MELATONIN 5 MG TABLETS PO PRN (21:44)
[2021-05-26] MEDS: INSULIN SLIDING SCALE (NOVOLOG) 1 VIAL SQ SCH ×4 (06:04→22:46)
[2021-05-26] MEDS: INSULIN (LEVEMIR) 100 UNITS/ML UNITS SQ SCH ×2 (06:04→22:45)
[2021-05-26] MEDS: LEVOTHYROXINE NA 50 MCG TABLET (FP) PO SCH (06:04)
[2021-05-26 08:19] LABS: BASO % 0.8 % (0-2.0); EOS % 3.3 % (0-4.5); HEMATOCRIT 35.3 % (32.4-45.2); HEMOGLOBIN 11.8 GM/dL (10.7-15.3); LYMPH % 32.2 % (8-40); MCH 25.3 pg (25.7-33.7); MCHC 33.3 g/dl (32.0-36.0); MEAN CELL VOLUME 75.8 fl (80-96); MONO % 7.9 % (3.8-10.2); NEUT % 55.8 % (42.8-82.8); PLATELET COUNT 215 10^3/uL (134-434); RBC 4.66 M/mm3 (3.60-5.2); RDW 18.9 % (11.6-15.6); WHITE BLOOD COUNT 6.6 K/mm3 (4.0-10.0)
[2021-05-26 08:36] LABS: CALCIUM 8.9 mg/dL (8.5-10.1)
[2021-05-26 08:37] LABS: BLOOD UREA NITROGEN 20.7 mg/dL (7-18)
[2021-05-26 08:40] LABS: CREATININE 1.2 mg/dL (0.55-1.3)
[2021-05-26] MEDS ORDERED: cefTRIAXone SODIUM 1 GM VIAL ONE (09:45)
[2021-05-26] MEDS ORDERED: DEXTROSE 5%-WATER - 50 ML IVPB ONE (09:45)
[2021-05-26] MEDS: CEFTRIAXONE 1 GM in DEXTROSE 5%-WATER - 50 ML IVPB SCH (09:48)
[2021-05-26] MEDS: POLYETHYLENE GLYCOL (HEALTHYLAX) 3350 17 GM PACKET PO SCH ×2 (09:49→22:55)
[2021-05-26] MEDS: METOPROLOL TARTRATE 50 MG TABLET (FP) PO SCH ×2 (09:49→22:41)
[2021-05-26] MEDS: CLOTRIMAZOLE 1% CREAM TP SCH ×2 (09:49→22:42)
[2021-05-26] MEDS: ACETAMINOPHEN 325 MG TABLET (FP) PO PRN (09:51)
[2021-05-26] MEDS: HEPARIN NA (PORCINE) 5,000 UNITS/ML 1ML VIAL SQ SCH ×2 (13:18→22:42)
[2021-05-26] MEDS ORDERED: MELATONIN 5 MG TABLETS PO PRN (14:44)
[2021-05-26] MEDS ORDERED: ACETAMINOPHEN 325 MG TABLET (FP) PO PRN (14:44)
[2021-05-26] MEDS ORDERED: ATORVASTATIN CA 20 MG TABLET (FP) PO SCH (22:00)
[2021-05-27] MEDS: HEPARIN NA (PORCINE) 5,000 UNITS/ML 1ML VIAL SQ SCH (06:19)
[2021-05-27] MEDS: INSULIN (LEVEMIR) 100 UNITS/ML UNITS SQ SCH (06:22)
[2021-05-27] MEDS: INSULIN SLIDING SCALE (NOVOLOG) 1 VIAL SQ SCH ×2 (06:23→12:13)
[2021-05-27] MEDS ORDERED: LEVOTHYROXINE NA 50 MCG TABLET (FP) PO SCH (07:00)
[2021-05-27 08:54] LABS: BASO % 0.9 % (0-2.0); EOS % 2.4 % (0-4.5); HEMATOCRIT 37.1 % (32.4-45.2); LYMPH % 38.2 % (8-40); MCH 24.8 pg (25.7-33.7); MCHC 32.3 g/dl (32.0-36.0); MEAN CELL VOLUME 76.7 fl (80-96); MEAN PLT VOLUME 8.5 fl (7.5-11.1); MONO % 6.9 % (3.8-10.2); NEUT % 51.6 % (42.8-82.8); PLATELET COUNT 247 10^3/uL (134-434); RBC 4.84 M/mm3 (3.60-5.2); RDW 18.9 % (11.6-15.6); WHITE BLOOD COUNT 7.1 K/mm3 (4.0-10.0)
[2021-05-27 09:14] LABS: BLOOD UREA NITROGEN 18.3 mg/dL (7-18); CALCIUM 9.3 mg/dL (8.5-10.1)
[2021-05-27 09:15] LABS: ALBUMIN 3.2 g/dl (3.4-5.0)
[2021-05-27 09:19] LABS: BILIRUBIN,TOTAL 0.8 mg/dL (0.2-1); TOT PROT 7.5 g/dl (6.4-8.2)
[2021-05-27] MEDS ORDERED: CEFTRIAXONE 1 GM in DEXTROSE 5%-WATER - 50 ML IVPB SCH (10:00)
[2021-05-27] MEDS ORDERED: cefTRIAXone SODIUM 1 GM VIAL ONE (10:31)
[2021-05-27] MEDS ORDERED: DEXTROSE 5%-WATER - 50 ML IVPB ONE (10:31)
[2021-05-27] MEDS: CLOTRIMAZOLE 1% CREAM TP SCH (10:38)
[2021-05-27] MEDS: METOPROLOL TARTRATE 50 MG TABLET (FP) PO SCH (10:39)
[2021-05-27] MEDS: POLYETHYLENE GLYCOL (HEALTHYLAX) 3350 17 GM PACKET PO SCH (10:39)
[2021-05-27 15:16] VITALS: BP 99/54; PULSE 70; TEMP 98.4
== END 2021-05-27 16:45 | DRG 690 ==
LOC: JER 18:05 → JERBED 21:00 → J4S 05-23 00:12
PROVIDERS: ADMIT Internal Medicine
DX: N39.0 Urinary tract infection, site not specified (principal); N17.9 Acute kidney failure, unspecified; E11.65 Type 2 diabetes mellitus with hyperglycemia; I10 Essential (primary) hypertension; E78.5 Hyperlipidemia, unspecified; I25.10 Atherosclerotic heart disease of native coronary artery without angina pectoris; E03.9 Hypothyroidism, unspecified; E66.9 Obesity, unspecified; Z68.30 Body mass index [BMI] 30.0-30.9, adult; E86.0 Dehydration; B96.20 Unspecified Escherichia coli [E. coli] as the cause of diseases classified elsewhere
CPT/HCPCS: 36415; 70450-TC; 70486-TC; 71045-TC-FY; 72125-TC; 72170-TC-FY; 80048; 80053; 81003; 82550; 82962; 83036; 83735; 84100; 84443; 84484; 85025; 85610; 85730; 87081; 87086; 87186; 93005; 93010; 97116-GP; 97161-GP; 99285-25; C9803; J1644; U0003; U0005

== ENCOUNTER 2022-01-20 13:33 | Inpatient (IN) | payer BC, OTHER ==
[2022-01-20] MEDS ORDERED: VANCOMYCIN 1 GM in D5W (PRE-DOCKED) 1,000 MG/250 ML IVPB ONE (15:32)
[2022-01-20] MEDS ORDERED: CEFTRIAXONE 1,000 MG in DEXTROSE 5%-WATER - 50 ML IVPB ONE (15:32)
[2022-01-20] MEDS ORDERED: VANCOMYCIN/WATER FOR INJ (PEG) 1,000 MG/200 ML BAG IVPB ONE (16:16)
[2022-01-20] MEDS ORDERED: CEFTRIAXONE 1 GM/50 ML BAG ONE (16:16)
[2022-01-20 18:18] LABS: INR 1.09 (0.83-1.09); PROTHROMBIN TIME (PATIENT) 12.5 SEC (9.7-13.0)
[2022-01-20 18:21] LABS: ACTIVATED PTT 26.3 SECONDS (25.2-36.5)
[2022-01-20 18:33] LABS: ALBUMIN 2.9 g/dl (3.4-5.0); CALCIUM 8.9 mg/dL (8.5-10.1)
[2022-01-20 18:37] LABS: CREATININE 1.3 mg/dL (0.55-1.3)
[2022-01-20 18:38] LABS: BILIRUBIN,TOTAL 0.4 mg/dL (0.2-1); TOT PROT 6.7 g/dl (6.4-8.2)
[2022-01-20 18:40] LABS: BASO % 0.5 % (0-2.0); EOS % 1.9 % (0-4.5); HEMATOCRIT 31.7 % (32.4-45.2); HEMOGLOBIN 10.3 GM/dL (10.7-15.3); LYMPH % 29.9 % (8-40); MCH 24.7 pg (25.7-33.7); MCHC 32.4 g/dl (32.0-36.0); MEAN CELL VOLUME 76.3 fl (80-96); MEAN PLT VOLUME 7.7 fl (7.5-11.1); NEUT % 60.7 % (42.8-82.8); PLATELET COUNT 221 10^3/uL (134-434); RBC 4.15 M/mm3 (3.60-5.2); WHITE BLOOD COUNT 6.3 K/mm3 (4.0-10.0)
[2022-01-20] MEDS ORDERED: VANCOMYCIN/WATER 1,250 MG/250 ML BAG IVPB SCH (23:15)
[2022-01-21] MEDS ORDERED: VANCOMYCIN/WATER 1250 MG 1,250 MG/250 ML BAG IVPB ONE (02:37)
[2022-01-21] MEDS ORDERED: VANCOMYCIN/WATER FOR INJ (PEG) 1,000 MG/200 ML BAG IVPB ONE ×2 (04:54→18:13)
[2022-01-21] MEDS: VANCOMYCIN/WATER FOR INJ (PEG) 1,000 MG/200 ML BAG IVPB SCH ×2 (04:55→17:55)
[2022-01-21 07:34] LABS: BASO % 0.3 % (0-2.0); EOS % 2.6 % (0-4.5); HEMATOCRIT 32.3 % (32.4-45.2); HEMOGLOBIN 10.8 GM/dL (10.7-15.3); LYMPH % 25.4 % (8-40); MCH 25.5 pg (25.7-33.7); MCHC 33.4 g/dl (32.0-36.0); MEAN CELL VOLUME 76.4 fl (80-96); MEAN PLT VOLUME 7.5 fl (7.5-11.1); MONO % 6.4 % (3.8-10.2); NEUT % 65.3 % (42.8-82.8); PLATELET COUNT 222 10^3/uL (134-434); RBC 4.23 M/mm3 (3.60-5.2); RDW 18.8 % (11.6-15.6); RETICULOCYTES 2.43 % (0.5-1.5); WHITE BLOOD COUNT 5.4 K/mm3 (4.0-10.0)
[2022-01-21 08:10] LABS: CALCIUM 8.8 mg/dL (8.5-10.1)
[2022-01-21 08:11] LABS: ALBUMIN 2.9 g/dl (3.4-5.0); MAGNESIUM 1.7 mg/dL (1.8-2.4)
[2022-01-21 08:14] LABS: PHOSPHOROUS 2.8 mg/dL (2.5-4.9)
[2022-01-21 08:15] LABS: BILIRUBIN,TOTAL 0.4 mg/dL (0.2-1); CREATININE 1.1 mg/dL (0.55-1.3); TOT PROT 6.7 g/dl (6.4-8.2)
[2022-01-21] MEDS: INSULIN SLIDING SCALE (NOVOLOG) 1 VIAL SQ SCH ×4 (08:59→23:06)
[2022-01-21] MEDS ORDERED: ENOXAPARIN NA (PORCINE) 40 MG/0.4 ML DISP.SYRIN SQ ONE (09:38)
[2022-01-21] MEDS ORDERED: LEVOTHYROXINE NA 50 MCG TABLET (FP) ONE (09:38)
[2022-01-21] MEDS: ENOXAPARIN NA (PORCINE) 40 MG/0.4 ML DISP.SYRIN SQ SCH (09:45)
[2022-01-21] MEDS: LEVOTHYROXINE NA 50 MCG TABLET (FP) PO SCH (09:45)
[2022-01-21] MEDS ORDERED: FUROSEMIDE 40 MG/4 ML INJECTABLE VIAL IVPUSH SCH (15:15)
[2022-01-21] MEDS ORDERED: MAGNESIUM SULF 50% (8.12 MEQ/2 ML-1 GM VIAL) IVPB ONE (15:17)
[2022-01-21] MEDS ORDERED: FUROSEMIDE 40 MG/4 ML INJECTABLE VIAL IVPUSH ONE (15:45)
[2022-01-21] MEDS ORDERED: FUROSEMIDE 40 MG/4 ML INJECTABLE VIAL ONE (16:00)
[2022-01-21] MEDS ORDERED: MAGNESIUM SULFATE IN WATER 2 GM/50 ML IVPB IVPB ONE (16:00)
[2022-01-21] MEDS ORDERED: SODIUM ZIRCONIUM CYCLOSILICATE (LOKELMA) 5 GM PACKET ONE (16:00)
[2022-01-21] MEDS ORDERED: INSULIN REGULAR HUMAN 100 UNITS/ML *VIAL IVPUSH ONE (16:25)
[2022-01-21] MEDS ORDERED: DEXTROSE 50%-WATER 25 GM/50 ML DISP.SYRIN IVPUSH ONE (16:25)
[2022-01-21] MEDS: SODIUM ZIRCONIUM CYCLOSILICATE (LOKELMA) 5 GM PACKET PO SCH (16:26)
[2022-01-21] MEDS: INSULIN (NOVOLOG) ASPART 100 UNITS/ML 10ML VIAL SQ SCH (18:00)
[2022-01-21] MEDS: INSULIN (LEVEMIR) 100 UNITS/ML UNITS SQ SCH (23:05)
[2022-01-21] MEDS: ATORVASTATIN CA 20 MG TABLET (FP) PO SCH (23:06)
[2022-01-21] MEDS: METOPROLOL TARTRATE 50 MG TABLET (FP) PO SCH (23:06)
[2022-01-22 03:24] VITALS: BMI 34.2
[2022-01-22] MEDS ORDERED: VANCOMYCIN 1 GM/200 ML PREMIX BAG IVPB ONE ×2 (06:00→22:00)
[2022-01-22] MEDS ORDERED: VANCOMYCIN/WATER FOR INJ (PEG) 1,000 MG/200 ML BAG IVPB ONE (06:00)
[2022-01-22] MEDS: INSULIN (LEVEMIR) 100 UNITS/ML UNITS SQ SCH ×2 (06:32→21:52)
[2022-01-22] MEDS: INSULIN (NOVOLOG) ASPART 100 UNITS/ML 10ML VIAL SQ SCH ×3 (06:32→16:42)
[2022-01-22] MEDS: INSULIN SLIDING SCALE (NOVOLOG) 1 VIAL SQ SCH ×4 (06:33→21:51)
[2022-01-22] MEDS: LEVOTHYROXINE NA 50 MCG TABLET (FP) PO SCH (06:49)
[2022-01-22] MEDS: FERROUS SO4 325 MG TABLET (FP) PO SCH (08:04)
[2022-01-22] MEDS ORDERED: INSULIN (LEVEMIR) 100 UNITS/ML UNITS SQ ONE (08:16)
[2022-01-22] MEDS ORDERED: VANCOMYCIN 1 GM in D5W (PRE-DOCKED) 1,000 MG/250 ML IVPB SCH (08:17)
[2022-01-22] MEDS: SODIUM ZIRCONIUM CYCLOSILICATE (LOKELMA) 5 GM PACKET PO SCH (09:56)
[2022-01-22] MEDS: ENOXAPARIN NA (PORCINE) 40 MG/0.4 ML DISP.SYRIN SQ SCH (09:56)
[2022-01-22] MEDS: ISOSORBIDE MONONITRATE 30 MG TAB.SR.24H (FP) PO SCH (09:56)
[2022-01-22] MEDS: METOPROLOL TARTRATE 50 MG TABLET (FP) PO SCH ×2 (09:56→21:51)
[2022-01-22] MEDS ORDERED: FUROSEMIDE 20 MG TABLET (FP) PO SCH (10:00)
[2022-01-22 10:29] LABS: HEMATOCRIT 33.7 % (32.4-45.2); HEMOGLOBIN 11.3 GM/dL (10.7-15.3); MCH 25.4 pg (25.7-33.7); MCHC 33.4 g/dl (32.0-36.0); MEAN PLT VOLUME 7.9 fl (7.5-11.1); PLATELET COUNT 222 10^3/uL (134-434); RBC 4.43 M/mm3 (3.60-5.2); RDW 18.8 % (11.6-15.6); WHITE BLOOD COUNT 5.9 K/mm3 (4.0-10.0)
[2022-01-22 10:52] LABS: ALBUMIN 2.9 g/dl (3.4-5.0); BLOOD UREA NITROGEN 18.5 mg/dL (7-18); CALCIUM 8.8 mg/dL (8.5-10.1); MAGNESIUM 1.8 mg/dL (1.8-2.4)
[2022-01-22 10:55] LABS: CREATININE 1.3 mg/dL (0.55-1.3)
[2022-01-22 10:57] LABS: BILIRUBIN,TOTAL 0.5 mg/dL (0.2-1); TOT PROT 6.8 g/dl (6.4-8.2)
[2022-01-22] MEDS: FENOFIBRIC ACID 135 MG CAP PO SCH (11:30)
[2022-01-22 13:42] LABS: PH,URINE 5.5 (5.0-8.0); URINE APPEARANCE Cloudy; URINE BILIRUBIN Negative (NEGATIVE); URINE COLOR Yellow; URINE GLUCOSE (UA) 3+ (NEGATIVE); URINE KETONE Negative (NEGATIVE); URINE LEUK ESTERASE Trace (NEGATIVE); URINE NITRITE Negative (NEGATIVE); URINE PROTEIN 1+ (NEGATIVE); URINE UROBILINOGEN 0.2 mg/dL (0.2-1.0)
[2022-01-22] MEDS: VANCOMYCIN 1 GM/200 ML PREMIX BAG IVPB SCH (17:18)
[2022-01-22] MEDS: ATORVASTATIN CA 20 MG TABLET (FP) PO SCH (21:51)
[2022-01-22] MEDS: FUROSEMIDE 20 MG TABLET (FP) PO SCH (21:51)
[2022-01-23] MEDS: VANCOMYCIN 1 GM/200 ML PREMIX BAG IVPB SCH ×2 (05:48→21:24)
[2022-01-23] MEDS: INSULIN (NOVOLOG) ASPART 100 UNITS/ML 10ML VIAL SQ SCH ×3 (06:01→17:49)
[2022-01-23] MEDS: INSULIN (LEVEMIR) 100 UNITS/ML UNITS SQ SCH ×2 (06:01→21:30)
[2022-01-23] MEDS: LEVOTHYROXINE NA 50 MCG TABLET (FP) PO SCH (06:02)
[2022-01-23] MEDS: INSULIN SLIDING SCALE (NOVOLOG) 1 VIAL SQ SCH ×4 (06:02→21:31)
[2022-01-23 08:26] LABS: HEMATOCRIT 30.8 % (32.4-45.2); HEMOGLOBIN 10.3 GM/dL (10.7-15.3); MCH 25.3 pg (25.7-33.7); MCHC 33.3 g/dl (32.0-36.0); MEAN CELL VOLUME 76.2 fl (80-96); MEAN PLT VOLUME 7.6 fl (7.5-11.1); PLATELET COUNT 204 10^3/uL (134-434); RBC 4.05 M/mm3 (3.60-5.2); RDW 18.4 % (11.6-15.6); WHITE BLOOD COUNT 5.5 K/mm3 (4.0-10.0)
[2022-01-23 09:34] LABS: CALCIUM 8.6 mg/dL (8.5-10.1)
[2022-01-23 09:35] LABS: BLOOD UREA NITROGEN 19.4 mg/dL (7-18)
[2022-01-23 09:36] LABS: ALBUMIN 2.7 g/dl (3.4-5.0)
[2022-01-23 09:39] LABS: BILIRUBIN,TOTAL 0.6 mg/dL (0.2-1); CREATININE 1.3 mg/dL (0.55-1.3); TOT PROT 6.4 g/dl (6.4-8.2)
[2022-01-23] MEDS: MULTIVITAMINS (DAILY MVI) TABLET (FP) PO SCH (12:04)
[2022-01-23] MEDS: AMINO ACIDS/PROTEIN HYDROLYS 30 ML LIQUID.PKT PO SCH (12:04)
[2022-01-23] MEDS: FUROSEMIDE 20 MG TABLET (FP) PO SCH ×2 (12:04→21:32)
[2022-01-23] MEDS: METOPROLOL TARTRATE 50 MG TABLET (FP) PO SCH ×2 (12:04→21:31)
[2022-01-23] MEDS: SODIUM ZIRCONIUM CYCLOSILICATE (LOKELMA) 5 GM PACKET PO SCH (12:04)
[2022-01-23] MEDS: ENOXAPARIN NA (PORCINE) 40 MG/0.4 ML DISP.SYRIN SQ SCH (12:09)
[2022-01-23] MEDS: FENOFIBRIC ACID 135 MG CAP PO SCH (12:10)
[2022-01-23] MEDS: ISOSORBIDE MONONITRATE 30 MG TAB.SR.24H (FP) PO SCH (12:26)
[2022-01-23] MEDS: FERROUS SO4 325 MG TABLET (FP) PO SCH (12:26)
[2022-01-23] MEDS: VANCOMYCIN 1 GM in D5W (PRE-DOCKED) 1,000 MG/250 ML IVPB SCH (12:44)
[2022-01-23] MEDS: ATORVASTATIN CA 20 MG TABLET (FP) PO SCH (21:31)
[2022-01-23] MEDS: NYSTATIN POWDER 100,000 UNITS/GM - 15 GM TOPICAL POWDER TP SCH (21:32)
[2022-01-24] MEDS: VANCOMYCIN 1 GM/200 ML PREMIX BAG IVPB SCH ×2 (06:37→17:49)
[2022-01-24] MEDS: INSULIN (LEVEMIR) 100 UNITS/ML UNITS SQ SCH ×2 (06:37→21:47)
[2022-01-24] MEDS: INSULIN SLIDING SCALE (NOVOLOG) 1 VIAL SQ SCH ×4 (06:38→21:48)
[2022-01-24] MEDS: INSULIN (NOVOLOG) ASPART 100 UNITS/ML 10ML VIAL SQ SCH ×3 (06:38→17:49)
[2022-01-24] MEDS: LEVOTHYROXINE NA 50 MCG TABLET (FP) PO SCH (06:39)
[2022-01-24] MEDS ORDERED: INSULIN (LEVEMIR) 100 UNITS/ML UNITS SQ ONE ×2 (08:56→12:17)
[2022-01-24 09:56] LABS: HEMATOCRIT 34.6 % (32.4-45.2); HEMOGLOBIN 11.2 GM/dL (10.7-15.3); MCH 24.8 pg (25.7-33.7); MCHC 32.3 g/dl (32.0-36.0); MEAN CELL VOLUME 76.9 fl (80-96); MEAN PLT VOLUME 8.1 fl (7.5-11.1); PLATELET COUNT 205 10^3/uL (134-434); RDW 18.5 % (11.6-15.6); WHITE BLOOD COUNT 5.2 K/mm3 (4.0-10.0)
[2022-01-24 10:26] LABS: CALCIUM 8.8 mg/dL (8.5-10.1)
[2022-01-24 10:27] LABS: BLOOD UREA NITROGEN 20.1 mg/dL (7-18)
[2022-01-24 10:28] LABS: ALBUMIN 2.8 g/dl (3.4-5.0)
[2022-01-24 10:29] LABS: BILIRUBIN,TOTAL 0.5 mg/dL (0.2-1); TOT PROT 6.8 g/dl (6.4-8.2)
[2022-01-24 10:30] LABS: CREATININE 1.2 mg/dL (0.55-1.3)
[2022-01-24] MEDS: ENOXAPARIN NA (PORCINE) 40 MG/0.4 ML DISP.SYRIN SQ SCH (12:24)
[2022-01-24] MEDS: FUROSEMIDE 20 MG TABLET (FP) PO SCH ×2 (12:24→21:46)
[2022-01-24] MEDS: ISOSORBIDE MONONITRATE 30 MG TAB.SR.24H (FP) PO SCH (12:24)
[2022-01-24] MEDS: MULTIVITAMINS (DAILY MVI) TABLET (FP) PO SCH (12:25)
[2022-01-24] MEDS: FENOFIBRIC ACID 135 MG CAP PO SCH (12:25)
[2022-01-24] MEDS: METOPROLOL TARTRATE 50 MG TABLET (FP) PO SCH ×2 (12:25→21:51)
[2022-01-24] MEDS: NYSTATIN POWDER 100,000 UNITS/GM - 15 GM TOPICAL POWDER TP SCH ×2 (12:25→21:51)
[2022-01-24] MEDS: FERROUS SO4 325 MG TABLET (FP) PO SCH (12:25)
[2022-01-24] MEDS: AMINO ACIDS/PROTEIN HYDROLYS 30 ML LIQUID.PKT PO SCH (12:26)
[2022-01-24] MEDS ORDERED: FLUCONAZOLE 150 MG TABLET PO ONE (15:00)
[2022-01-24] MEDS ORDERED: INSULIN (NOVOLOG) ASPART 100 UNITS/ML 10ML VIAL ONE (21:16)
[2022-01-24] MEDS: ATORVASTATIN CA 20 MG TABLET (FP) PO SCH (21:51)
[2022-01-25] MEDS: VANCOMYCIN 1 GM/200 ML PREMIX BAG IVPB SCH (05:59)
[2022-01-25] MEDS: INSULIN (LEVEMIR) 100 UNITS/ML UNITS SQ SCH ×2 (06:00→21:59)
[2022-01-25] MEDS: INSULIN (NOVOLOG) ASPART 100 UNITS/ML 10ML VIAL SQ SCH (06:01)
[2022-01-25] MEDS: LEVOTHYROXINE NA 50 MCG TABLET (FP) PO SCH (06:01)
[2022-01-25] MEDS: INSULIN SLIDING SCALE (NOVOLOG) 1 VIAL SQ SCH ×4 (06:18→22:00)
[2022-01-25] MEDS ORDERED: INSULIN (NOVOLOG) ASPART 100 UNITS/ML 10ML VIAL SQ SCH (09:15)
[2022-01-25] MEDS ORDERED: INSULIN (LEVEMIR) 100 UNITS/ML UNITS SQ SCH (09:15)
[2022-01-25] MEDS: POLYETHYLENE GLYCOL (HEALTHYLAX) 3350 17 GM PACKET PO SCH (09:17)
[2022-01-25] MEDS: MULTIVITAMINS (DAILY MVI) TABLET (FP) PO SCH (09:17)
[2022-01-25] MEDS: ENOXAPARIN NA (PORCINE) 40 MG/0.4 ML DISP.SYRIN SQ SCH (09:17)
[2022-01-25] MEDS: FUROSEMIDE 20 MG TABLET (FP) PO SCH ×2 (09:17→21:59)
[2022-01-25] MEDS: FERROUS SO4 325 MG TABLET (FP) PO SCH (09:17)
[2022-01-25] MEDS: AMINO ACIDS/PROTEIN HYDROLYS 30 ML LIQUID.PKT PO SCH (09:17)
[2022-01-25] MEDS: NYSTATIN POWDER 100,000 UNITS/GM - 15 GM TOPICAL POWDER TP SCH ×2 (09:17→22:01)
[2022-01-25] MEDS: FENOFIBRIC ACID 135 MG CAP PO SCH (09:17)
[2022-01-25] MEDS: METOPROLOL TARTRATE 50 MG TABLET (FP) PO SCH ×2 (09:17→22:00)
[2022-01-25] MEDS: ISOSORBIDE MONONITRATE 30 MG TAB.SR.24H (FP) PO SCH (09:17)
[2022-01-25] MEDS: ANASTROZOLE 1 MG TABLET PO SCH (09:18)
[2022-01-25] MEDS ORDERED: FLUCONAZOLE 150 MG TABLET PO ONE (13:15)
[2022-01-25] MEDS ORDERED: INSULIN SLIDING SCALE (NOVOLOG) 1 VIAL SQ SCH (14:32)
[2022-01-25] MEDS: DOXYCYCLINE HYCLATE 100 MG CAPSULE PO SCH (17:06)
[2022-01-25] MEDS: INSULIN (NOVOLOG MIX 70/30) 100 UNITS/ML MDV SQ SCH (17:06)
[2022-01-25] MEDS ORDERED: DEXAMETHASONE 0.5 MG TABLET PO ONE (21:45)
[2022-01-26] MEDS: INSULIN SLIDING SCALE (NOVOLOG) 1 VIAL SQ SCH ×4 (06:03→22:56)
[2022-01-26] MEDS: INSULIN (NOVOLOG MIX 70/30) 100 UNITS/ML MDV SQ SCH ×3 (06:03→17:31)
[2022-01-26] MEDS: INSULIN (LEVEMIR) 100 UNITS/ML UNITS SQ SCH ×2 (06:03→22:48)
[2022-01-26] MEDS: LEVOTHYROXINE NA 50 MCG TABLET (FP) PO SCH (06:04)
[2022-01-26] MEDS ORDERED: INSULIN (NOVOLOG) ASPART 100 UNITS/ML 10ML VIAL ONE (06:28)
[2022-01-26 10:43] LABS: HEMATOCRIT 36.4 % (32.4-45.2); HEMOGLOBIN 11.7 GM/dL (10.7-15.3); MCH 24.4 pg (25.7-33.7); MEAN CELL VOLUME 76.3 fl (80-96); MEAN PLT VOLUME 7.9 fl (7.5-11.1); PLATELET COUNT 252 10^3/uL (134-434); RBC 4.77 M/mm3 (3.60-5.2); RDW 18.8 % (11.6-15.6); WHITE BLOOD COUNT 6.9 K/mm3 (4.0-10.0)
[2022-01-26] MEDS: ISOSORBIDE MONONITRATE 30 MG TAB.SR.24H (FP) PO SCH (10:45)
[2022-01-26] MEDS: METOPROLOL TARTRATE 50 MG TABLET (FP) PO SCH ×2 (10:45→22:48)
[2022-01-26] MEDS: MULTIVITAMINS (DAILY MVI) TABLET (FP) PO SCH (10:45)
[2022-01-26] MEDS: DOXYCYCLINE HYCLATE 100 MG CAPSULE PO SCH ×2 (10:45→17:32)
[2022-01-26] MEDS: POLYETHYLENE GLYCOL (HEALTHYLAX) 3350 17 GM PACKET PO SCH (10:45)
[2022-01-26] MEDS: FERROUS SO4 325 MG TABLET (FP) PO SCH (10:45)
[2022-01-26] MEDS: FUROSEMIDE 20 MG TABLET (FP) PO SCH ×2 (10:45→22:48)
[2022-01-26] MEDS: NYSTATIN POWDER 100,000 UNITS/GM - 15 GM TOPICAL POWDER TP SCH ×2 (10:46→22:52)
[2022-01-26] MEDS: AMINO ACIDS/PROTEIN HYDROLYS 30 ML LIQUID.PKT PO SCH (10:46)
[2022-01-26] MEDS: ENOXAPARIN NA (PORCINE) 40 MG/0.4 ML DISP.SYRIN SQ SCH (10:46)
[2022-01-26] MEDS: FENOFIBRIC ACID 135 MG CAP PO SCH (10:46)
[2022-01-26] MEDS: ANASTROZOLE 1 MG TABLET PO SCH (10:46)
[2022-01-26 11:05] LABS: ALBUMIN 3.2 g/dl (3.4-5.0); BLOOD UREA NITROGEN 26.3 mg/dL (7-18); CALCIUM 9.3 mg/dL (8.5-10.1)
[2022-01-26 11:08] LABS: CREATININE 1.2 mg/dL (0.55-1.3)
[2022-01-26 11:10] LABS: TOT PROT 7.3 g/dl (6.4-8.2)
[2022-01-26] MEDS ORDERED: INSULIN (NOVOLOG MIX 70/30) 100 UNITS/ML MDV SQ SCH (16:31)
[2022-01-26] MEDS: MINERAL OIL/PET HY-PHL TOPICAL OINTMENT 454 GM JAR TP SCH ×2 (17:37→22:52)
[2022-01-27] MEDS: LEVOTHYROXINE NA 50 MCG TABLET (FP) PO SCH (06:12)
[2022-01-27] MEDS: INSULIN (NOVOLOG MIX 70/30) 100 UNITS/ML MDV SQ SCH ×2 (06:12→17:17)
[2022-01-27] MEDS: INSULIN SLIDING SCALE (NOVOLOG) 1 VIAL SQ SCH ×4 (06:14→22:04)
[2022-01-27] MEDS: INSULIN (LEVEMIR) 100 UNITS/ML UNITS SQ SCH ×2 (06:17→21:57)
[2022-01-27 07:17] VITALS: RESP 20
[2022-01-27] MEDS: FENOFIBRIC ACID 135 MG CAP PO SCH (09:33)
[2022-01-27] MEDS: ANASTROZOLE 1 MG TABLET PO SCH (09:33)
[2022-01-27] MEDS: LIRAGLUTIDE 0.6 MG/0.1 ML PEN.INJCTR SQ SCH (09:33)
[2022-01-27] MEDS: AMINO ACIDS/PROTEIN HYDROLYS 30 ML LIQUID.PKT PO SCH ×2 (09:33→22:04)
[2022-01-27] MEDS: FUROSEMIDE 20 MG TABLET (FP) PO SCH ×2 (09:34→21:57)
[2022-01-27] MEDS: ISOSORBIDE MONONITRATE 30 MG TAB.SR.24H (FP) PO SCH (09:34)
[2022-01-27] MEDS: MINERAL OIL/PET HY-PHL TOPICAL OINTMENT 454 GM JAR TP SCH ×2 (09:34→21:56)
[2022-01-27] MEDS: MULTIVITAMINS (DAILY MVI) TABLET (FP) PO SCH (09:34)
[2022-01-27] MEDS: FERROUS SO4 325 MG TABLET (FP) PO SCH (09:34)
[2022-01-27] MEDS: METOPROLOL TARTRATE 50 MG TABLET (FP) PO SCH ×2 (09:34→21:57)
[2022-01-27] MEDS: DOXYCYCLINE HYCLATE 100 MG CAPSULE PO SCH ×2 (09:34→17:16)
[2022-01-27] MEDS: POLYETHYLENE GLYCOL (HEALTHYLAX) 3350 17 GM PACKET PO SCH (09:34)
[2022-01-27] MEDS: NYSTATIN POWDER 100,000 UNITS/GM - 15 GM TOPICAL POWDER TP SCH ×2 (09:35→21:57)
[2022-01-27] MEDS: ENOXAPARIN NA (PORCINE) 40 MG/0.4 ML DISP.SYRIN SQ SCH (09:35)
[2022-01-27 10:15] LABS: HEMATOCRIT 36.3 % (32.4-45.2); HEMOGLOBIN 11.8 GM/dL (10.7-15.3); MCHC 32.7 g/dl (32.0-36.0); MEAN CELL VOLUME 76.6 fl (80-96); MEAN PLT VOLUME 7.8 fl (7.5-11.1); PLATELET COUNT 239 10^3/uL (134-434); RBC 4.73 M/mm3 (3.60-5.2); WHITE BLOOD COUNT 7.4 K/mm3 (4.0-10.0)
[2022-01-27 10:47] LABS: ALBUMIN 3.1 g/dl (3.4-5.0); CALCIUM 9.4 mg/dL (8.5-10.1)
[2022-01-27 10:49] LABS: CREATININE 1.3 mg/dL (0.55-1.3)
[2022-01-27 10:51] LABS: BILIRUBIN,TOTAL 0.6 mg/dL (0.2-1); TOT PROT 7.1 g/dl (6.4-8.2)
[2022-01-27] MEDS ORDERED: INSULIN (NOVOLOG) ASPART 100 UNITS/ML 10ML VIAL ONE (18:42)
[2022-01-28] MEDS ORDERED: INSULIN (NOVOLOG MIX 70/30) 100 UNITS/ML MDV SQ ONE (05:56)
[2022-01-28] MEDS: INSULIN SLIDING SCALE (NOVOLOG) 1 VIAL SQ SCH ×2 (07:02→11:48)
[2022-01-28] MEDS: LEVOTHYROXINE NA 50 MCG TABLET (FP) PO SCH (07:02)
[2022-01-28] MEDS: LIRAGLUTIDE 0.6 MG/0.1 ML PEN.INJCTR SQ SCH (07:02)
[2022-01-28] MEDS: INSULIN (LEVEMIR) 100 UNITS/ML UNITS SQ SCH (07:02)
[2022-01-28] MEDS: INSULIN (NOVOLOG MIX 70/30) 100 UNITS/ML MDV SQ SCH (07:02)
[2022-01-28] MEDS: METOPROLOL TARTRATE 50 MG TABLET (FP) PO SCH (09:57)
[2022-01-28] MEDS: ENOXAPARIN NA (PORCINE) 40 MG/0.4 ML DISP.SYRIN SQ SCH (09:57)
[2022-01-28] MEDS: ISOSORBIDE MONONITRATE 30 MG TAB.SR.24H (FP) PO SCH (09:58)
[2022-01-28] MEDS: AMINO ACIDS/PROTEIN HYDROLYS 30 ML LIQUID.PKT PO SCH (09:58)
[2022-01-28] MEDS: POLYETHYLENE GLYCOL (HEALTHYLAX) 3350 17 GM PACKET PO SCH ×2 (09:58→10:03)
[2022-01-28] MEDS: NYSTATIN POWDER 100,000 UNITS/GM - 15 GM TOPICAL POWDER TP SCH (09:58)
[2022-01-28] MEDS: FUROSEMIDE 20 MG TABLET (FP) PO SCH (09:58)
[2022-01-28] MEDS: FERROUS SO4 325 MG TABLET (FP) PO SCH (09:58)
[2022-01-28] MEDS: MULTIVITAMINS (DAILY MVI) TABLET (FP) PO SCH (09:58)
[2022-01-28] MEDS: DOXYCYCLINE HYCLATE 100 MG CAPSULE PO SCH (09:58)
[2022-01-28] MEDS: ANASTROZOLE 1 MG TABLET PO SCH (09:58)
[2022-01-28] MEDS: MINERAL OIL/PET HY-PHL TOPICAL OINTMENT 454 GM JAR TP SCH (09:58)
[2022-01-28] MEDS: FENOFIBRIC ACID 135 MG CAP PO SCH (09:59)
[2022-01-28] MEDS ORDERED: ASCORBIC ACID 250 MG TABLET (FP) PO SCH (10:00)
[2022-01-28] MEDS ORDERED: ZINC SULFATE 220 MG CAPSULE (FP) PO SCH (10:00)
[2022-01-28 10:05] LABS: HEMATOCRIT 36.1 % (32.4-45.2); HEMOGLOBIN 11.9 GM/dL (10.7-15.3); MCH 25.3 pg (25.7-33.7); MEAN CELL VOLUME 76.8 fl (80-96); MEAN PLT VOLUME 7.9 fl (7.5-11.1); PLATELET COUNT 251 10^3/uL (134-434); RDW 19.5 % (11.6-15.6); WHITE BLOOD COUNT 7.8 K/mm3 (4.0-10.0)
[2022-01-28 10:15] LABS: BLOOD UREA NITROGEN 39.9 mg/dL (7-18); CALCIUM 9.2 mg/dL (8.5-10.1)
[2022-01-28 10:16] LABS: ALBUMIN 3.1 g/dl (3.4-5.0)
[2022-01-28 10:19] LABS: CREATININE 1.2 mg/dL (0.55-1.3)
[2022-01-28 10:20] LABS: BILIRUBIN,TOTAL 0.6 mg/dL (0.2-1); TOT PROT 7.4 g/dl (6.4-8.2)
[2022-01-28 14:42] VITALS: PULSE 75
[2022-01-28 14:44] VITALS: BP 113/48; TEMP 98.7
== END 2022-01-28 17:03 | DRG 603 ==
LOC: JER 13:33 → JERBED 15:48 → J8W 01-21 21:53
PROVIDERS: ADMIT Internal Medicine; ATTEND Internal Medicine
DX: L03.115 Cellulitis of right lower limb (principal); I50.32 Chronic diastolic (congestive) heart failure; L03.116 Cellulitis of left lower limb; E11.65 Type 2 diabetes mellitus with hyperglycemia; E78.5 Hyperlipidemia, unspecified; I25.10 Atherosclerotic heart disease of native coronary artery without angina pectoris; I11.0 Hypertensive heart disease with heart failure; L89.312 Pressure ulcer of right buttock, stage 2; L89.322 Pressure ulcer of left buttock, stage 2; E87.5 Hyperkalemia; D50.9 Iron deficiency anemia, unspecified; I87.8 Other specified disorders of veins; E11.40 Type 2 diabetes mellitus with diabetic neuropathy, unspecified; E66.9 Obesity, unspecified; Z68.33 Body mass index [BMI] 33.0-33.9, adult
CPT/HCPCS: 0241U-QW; 36415; 71045-TC-FY; 80053; 80061; 81003; 82024; 82533; 82550; 82728; 82962; 83036; 83540; 83550; 83615; 83735; 83880; 84100; 84443; 84466; 84484; 85025; 85027; 85045; 85610; 85730; 87077; 87086; 87902; 93005; 93010; 93306-TC; 94010; 97116-GP; 97161-GP; 99285-25; C9803-CS; G0480; J8540; U0003; U0005

== ENCOUNTER 2022-03-07 11:31 | Inpatient (IN) | payer OTHER ==
[2022-03-07 12:51] VITALS: BMI 32.5
[2022-03-07] MEDS ORDERED: LACTATED RINGERS SOLUTION 1000 ML INFUS.BAG IV ONE (13:47)
[2022-03-07 14:22] LABS: BASO % 0.4 % (0-2.0); EOS % 0.8 % (0-4.5); LYMPH % 18.7 % (8-40); MCH 25.3 pg (25.7-33.7); MCHC 31.8 g/dl (32.0-36.0); MEAN CELL VOLUME 79.7 fl (80-96); MEAN PLT VOLUME 8.2 fl (7.5-11.1); MONO % 6.1 % (3.8-10.2); PLATELET COUNT 285 10^3/uL (134-434); RBC 5.15 M/mm3 (3.60-5.2); RDW 18.8 % (11.6-15.6); WHITE BLOOD COUNT 12.6 K/mm3 (4.0-10.0)
[2022-03-07 14:29] LABS: INR 1.09 (0.83-1.09); PROTHROMBIN TIME (PATIENT) 12.6 SEC (9.7-13.0)
[2022-03-07 14:46] LABS: ALBUMIN 3.6 g/dl (3.4-5.0); BLOOD UREA NITROGEN 47.4 mg/dL (7-18); MAGNESIUM 2.2 mg/dL (1.8-2.4)
[2022-03-07 14:49] LABS: CREATININE 1.6 mg/dL (0.55-1.3)
[2022-03-07 14:51] LABS: BILIRUBIN,TOTAL 0.7 mg/dL (0.2-1); TOT PROT 8.1 g/dl (6.4-8.2)
[2022-03-07] MEDS ORDERED: PIPERACILLIN/TAZOB 3.375 GM 3.375 GM in DEXTROSE 5%-WATER - 50 ML IVPB ONE (15:09)
[2022-03-07] MEDS ORDERED: VANCOMYCIN 1 GM in D5W (PRE-DOCKED) 1,000 MG/250 ML IVPB ONE (15:10)
[2022-03-07] MEDS ORDERED: INSULIN SLIDING SCALE (NOVOLOG) 1 VIAL SQ SCH (16:30)
[2022-03-07] MEDS ORDERED: VANCOMYCIN/WATER FOR INJ (PEG) 1,000 MG/200 ML BAG IVPB ONE (16:52)
[2022-03-07] MEDS ORDERED: PIPERACILLIN/TAZOB 3.375 GM 3.375 GM/50 ML BAG IVPB ONE (16:53)
[2022-03-07] MEDS ORDERED: ACETAMINOPHEN 325 MG TABLET (FP) PO PRN (17:04)
[2022-03-07] MEDS: INSULIN SLIDING SCALE (NOVOLOG) 1 VIAL SQ SCH ×2 (17:47→22:20)
[2022-03-07] MEDS: AMINO ACIDS/PROTEIN HYDROLYS 30 ML LIQUID.PKT PO SCH (17:47)
[2022-03-07] MEDS ORDERED: GABAPENTIN 300 MG CAPSULE ONE (21:31)
[2022-03-07] MEDS ORDERED: POLYETHYLENE GLYCOL (HEALTHYLAX) 3350 17 GM PACKET ONE (21:31)
[2022-03-07] MEDS ORDERED: METOPROLOL TARTRATE 50 MG TABLET (FP) ONE (21:31)
[2022-03-07] MEDS ORDERED: FUROSEMIDE 20 MG TABLET (FP) PO SCH (22:00)
[2022-03-07] MEDS: METOPROLOL TARTRATE 50 MG TABLET (FP) PO SCH (22:30)
[2022-03-07] MEDS: GABAPENTIN 300 MG CAPSULE PO SCH (22:30)
[2022-03-07] MEDS: POLYETHYLENE GLYCOL (HEALTHYLAX) 3350 17 GM PACKET PO SCH (22:31)
[2022-03-07] MEDS: INSULIN (LEVEMIR) 100 UNITS/ML UNITS SQ SCH (22:31)
[2022-03-08 08:10] LABS: BASO % 0.5 % (0-2.0); EOS % 1.3 % (0-4.5); HEMATOCRIT 35.2 % (32.4-45.2); HEMOGLOBIN 11.5 GM/dL (10.7-15.3); LYMPH % 24.7 % (8-40); MCH 25.7 pg (25.7-33.7); MCHC 32.6 g/dl (32.0-36.0); MEAN CELL VOLUME 78.9 fl (80-96); MONO % 7.3 % (3.8-10.2); NEUT % 66.2 % (42.8-82.8); PLATELET COUNT 219 10^3/uL (134-434); RBC 4.46 M/mm3 (3.60-5.2); RDW 18.5 % (11.6-15.6); WHITE BLOOD COUNT 9.1 K/mm3 (4.0-10.0)
[2022-03-08 08:50] LABS: CALCIUM 9.4 mg/dL (8.5-10.1)
[2022-03-08 08:51] LABS: BLOOD UREA NITROGEN 41.5 mg/dL (7-18)
[2022-03-08 08:54] LABS: CREATININE 1.3 mg/dL (0.55-1.3)
[2022-03-08 08:55] LABS: TOT PROT 6.6 g/dl (6.4-8.2)
[2022-03-08] MEDS ORDERED: ZINC SULFATE 220 MG CAPSULE (FP) ONE (09:01)
[2022-03-08] MEDS ORDERED: FOLIC ACID 1 MG TABLET (FP) ONE (09:01)
[2022-03-08] MEDS ORDERED: ENOXAPARIN NA (PORCINE) 40 MG/0.4 ML DISP.SYRIN SQ ONE (09:02)
[2022-03-08] MEDS ORDERED: ISOSORBIDE MONONITRATE 30 MG TAB.SR.24H (FP) PO ONE (09:02)
[2022-03-08] MEDS ORDERED: FERROUS SO4 325 MG TABLET (FP) ONE (09:02)
[2022-03-08] MEDS ORDERED: FUROSEMIDE 20 MG TABLET (FP) ONE ×2 (09:02→22:21)
[2022-03-08] MEDS ORDERED: GABAPENTIN 300 MG CAPSULE ONE ×2 (09:02→22:21)
[2022-03-08] MEDS ORDERED: MULTIVITAMINS (DAILY MVI) TABLET (FP) ONE (09:02)
[2022-03-08] MEDS ORDERED: LEVOTHYROXINE NA 50 MCG TABLET (FP) ONE (09:02)
[2022-03-08 09:05] LABS: ALBUMIN 2.9 g/dl (3.4-5.0); BILIRUBIN,TOTAL 0.7 mg/dL (0.2-1)
[2022-03-08] MEDS: AMINO ACIDS/PROTEIN HYDROLYS 30 ML LIQUID.PKT PO SCH ×2 (09:05→17:41)
[2022-03-08] MEDS: LIRAGLUTIDE 0.6 MG/0.1 ML PEN.INJCTR SQ SCH (09:05)
[2022-03-08] MEDS: FERROUS SO4 325 MG TABLET (FP) PO SCH (09:05)
[2022-03-08] MEDS: FOLIC ACID 1 MG TABLET (FP) PO SCH (09:06)
[2022-03-08] MEDS: ANASTROZOLE 1 MG TABLET PO SCH (09:06)
[2022-03-08] MEDS: FUROSEMIDE 20 MG TABLET (FP) PO SCH ×3 (09:06→22:26)
[2022-03-08] MEDS: ENOXAPARIN NA (PORCINE) 40 MG/0.4 ML DISP.SYRIN SQ SCH (09:07)
[2022-03-08] MEDS: ZINC SULFATE 220 MG CAPSULE (FP) PO SCH (09:07)
[2022-03-08] MEDS: GABAPENTIN 300 MG CAPSULE PO SCH ×2 (09:07→22:27)
[2022-03-08] MEDS: ISOSORBIDE MONONITRATE 30 MG TAB.SR.24H (FP) PO SCH (09:07)
[2022-03-08] MEDS: OMEGA-3 ACID ETHYL ESTERS (FATTY-ACIDS) 1 GM CAPSULE (FP) PO SCH (09:07)
[2022-03-08] MEDS: MULTIVITAMINS (DAILY MVI) TABLET (FP) PO SCH (09:08)
[2022-03-08] MEDS: FENOFIBRIC ACID 135 MG CAP PO SCH (09:08)
[2022-03-08] MEDS: ASCORBIC ACID 250 MG TABLET (FP) PO SCH (09:08)
[2022-03-08] MEDS: LEVOTHYROXINE NA 75 MCG TABLET (FP) PO SCH (09:08)
[2022-03-08] MEDS: INSULIN (LEVEMIR) 100 UNITS/ML UNITS SQ SCH (09:09)
[2022-03-08] MEDS: INSULIN SLIDING SCALE (NOVOLOG) 1 VIAL SQ SCH ×4 (09:11→22:32)
[2022-03-08] MEDS: METOPROLOL TARTRATE 50 MG TABLET (FP) PO SCH ×2 (11:18→22:27)
[2022-03-08] MEDS: RAMIPRIL 2.5 MG CAPSULE PO SCH (11:18)
[2022-03-08] MEDS ORDERED: VANCOMYCIN/WATER 1250 MG 1,250 MG/250 ML BAG IVPB ONE (11:23)
[2022-03-08] MEDS: POLYETHYLENE GLYCOL (HEALTHYLAX) 3350 17 GM PACKET PO SCH ×3 (11:25→22:27)
[2022-03-08] MEDS: VANCOMYCIN/WATER 1250 MG 1,250 MG/250 ML BAG IVPB SCH (11:25)
[2022-03-08] MEDS: AMMONIUM LACTATE 12% LOTION 225 GM BOTTLE TP SCH (15:14)
[2022-03-09] MEDS: INSULIN (LEVEMIR) 100 UNITS/ML UNITS SQ SCH ×3 (07:05→23:15)
[2022-03-09] MEDS ORDERED: FERROUS SO4 325 MG TABLET (FP) ONE (07:45)
[2022-03-09] MEDS ORDERED: INSULIN (NOVOLOG) ASPART 100 UNITS/ML 10ML VIAL ONE (08:05)
[2022-03-09] MEDS: INSULIN SLIDING SCALE (NOVOLOG) 1 VIAL SQ SCH ×4 (08:10→23:15)
[2022-03-09] MEDS: AMINO ACIDS/PROTEIN HYDROLYS 30 ML LIQUID.PKT PO SCH ×2 (08:11→21:39)
[2022-03-09] MEDS: LIRAGLUTIDE 0.6 MG/0.1 ML PEN.INJCTR SQ SCH (08:11)
[2022-03-09] MEDS: FERROUS SO4 325 MG TABLET (FP) PO SCH (08:11)
[2022-03-09 08:36] LABS: BASO % 0.8 % (0-2.0); EOS % 1.7 % (0-4.5); HEMATOCRIT 33.2 % (32.4-45.2); HEMOGLOBIN 10.7 GM/dL (10.7-15.3); MCH 25.6 pg (25.7-33.7); MCHC 32.3 g/dl (32.0-36.0); MEAN CELL VOLUME 79.1 fl (80-96); MEAN PLT VOLUME 8.1 fl (7.5-11.1); MONO % 6.9 % (3.8-10.2); NEUT % 58.6 % (42.8-82.8); PLATELET COUNT 193 10^3/uL (134-434); RBC 4.19 M/mm3 (3.60-5.2); RDW 18.5 % (11.6-15.6); WHITE BLOOD COUNT 5.9 K/mm3 (4.0-10.0)
[2022-03-09 08:58] LABS: CALCIUM 9.1 mg/dL (8.5-10.1)
[2022-03-09 08:59] LABS: BLOOD UREA NITROGEN 35.7 mg/dL (7-18)
[2022-03-09 09:02] LABS: CREATININE 1.1 mg/dL (0.55-1.3)
[2022-03-09] MEDS ORDERED: ZINC SULFATE 220 MG CAPSULE (FP) ONE (10:17)
[2022-03-09] MEDS ORDERED: LEVOTHYROXINE NA 50 MCG TABLET (FP) ONE (10:17)
[2022-03-09] MEDS ORDERED: FOLIC ACID 1 MG TABLET (FP) ONE (10:17)
[2022-03-09] MEDS ORDERED: METOPROLOL TARTRATE 50 MG TABLET (FP) ONE (10:17)
[2022-03-09] MEDS ORDERED: GABAPENTIN 300 MG CAPSULE ONE ×2 (10:17→23:34)
[2022-03-09] MEDS ORDERED: POLYETHYLENE GLYCOL (HEALTHYLAX) 3350 17 GM PACKET ONE ×2 (10:17→23:33)
[2022-03-09] MEDS ORDERED: ISOSORBIDE MONONITRATE 30 MG TAB.SR.24H (FP) PO ONE (10:18)
[2022-03-09] MEDS ORDERED: VANCOMYCIN/WATER 1250 MG 1,250 MG/250 ML BAG IVPB ONE (10:18)
[2022-03-09] MEDS ORDERED: FUROSEMIDE 20 MG TABLET (FP) ONE ×2 (10:18→23:34)
[2022-03-09] MEDS ORDERED: ENOXAPARIN NA (PORCINE) 40 MG/0.4 ML DISP.SYRIN SQ ONE (10:19)
[2022-03-09] MEDS: VANCOMYCIN/WATER 1250 MG 1,250 MG/250 ML BAG IVPB SCH (10:37)
[2022-03-09] MEDS: RAMIPRIL 2.5 MG CAPSULE PO SCH (10:37)
[2022-03-09] MEDS: ANASTROZOLE 1 MG TABLET PO SCH (10:37)
[2022-03-09] MEDS: FOLIC ACID 1 MG TABLET (FP) PO SCH (10:37)
[2022-03-09] MEDS: OMEGA-3 ACID ETHYL ESTERS (FATTY-ACIDS) 1 GM CAPSULE (FP) PO SCH (10:38)
[2022-03-09] MEDS: METOPROLOL TARTRATE 50 MG TABLET (FP) PO SCH ×2 (10:38→23:15)
[2022-03-09] MEDS: ISOSORBIDE MONONITRATE 30 MG TAB.SR.24H (FP) PO SCH (10:38)
[2022-03-09] MEDS: FUROSEMIDE 20 MG TABLET (FP) PO SCH ×2 (10:38→23:15)
[2022-03-09] MEDS: ENOXAPARIN NA (PORCINE) 40 MG/0.4 ML DISP.SYRIN SQ SCH (10:38)
[2022-03-09] MEDS: GABAPENTIN 300 MG CAPSULE PO SCH ×2 (10:38→23:15)
[2022-03-09] MEDS: POLYETHYLENE GLYCOL (HEALTHYLAX) 3350 17 GM PACKET PO SCH ×2 (10:38→23:15)
[2022-03-09] MEDS: ZINC SULFATE 220 MG CAPSULE (FP) PO SCH (10:38)
[2022-03-09] MEDS: FENOFIBRIC ACID 135 MG CAP PO SCH (10:39)
[2022-03-09] MEDS: LEVOTHYROXINE NA 75 MCG TABLET (FP) PO SCH (10:39)
[2022-03-09] MEDS: ASCORBIC ACID 250 MG TABLET (FP) PO SCH (10:39)
[2022-03-09] MEDS: MULTIVITAMINS (DAILY MVI) TABLET (FP) PO SCH (10:54)
[2022-03-09] MEDS: AMMONIUM LACTATE 12% LOTION 225 GM BOTTLE TP SCH (10:54)
[2022-03-10 07:34] LABS: BASO % 0.7 % (0-2.0); EOS % 1.9 % (0-4.5); HEMATOCRIT 32.5 % (32.4-45.2); HEMOGLOBIN 10.7 GM/dL (10.7-15.3); LYMPH % 34.9 % (8-40); MCHC 32.9 g/dl (32.0-36.0); MEAN CELL VOLUME 79.1 fl (80-96); MEAN PLT VOLUME 7.8 fl (7.5-11.1); MONO % 7.7 % (3.8-10.2); NEUT % 54.8 % (42.8-82.8); PLATELET COUNT 192 10^3/uL (134-434); RDW 18.4 % (11.6-15.6); WHITE BLOOD COUNT 5.4 K/mm3 (4.0-10.0)
[2022-03-10] MEDS ORDERED: FERROUS SO4 325 MG TABLET (FP) ONE (07:53)
[2022-03-10 07:54] LABS: ALBUMIN 2.8 g/dl (3.4-5.0); BLOOD UREA NITROGEN 39.2 mg/dL (7-18)
[2022-03-10 07:57] LABS: CREATININE 1.4 mg/dL (0.55-1.3)
[2022-03-10] MEDS ORDERED: INSULIN (LEVEMIR) 100 UNITS/ML UNITS SQ ONE ×2 (07:57→10:48)
[2022-03-10 07:59] LABS: BILIRUBIN,TOTAL 0.5 mg/dL (0.2-1)
[2022-03-10 08:00] LABS: TOT PROT 6.6 g/dl (6.4-8.2)
[2022-03-10] MEDS: LIRAGLUTIDE 0.6 MG/0.1 ML PEN.INJCTR SQ SCH (08:08)
[2022-03-10] MEDS: INSULIN SLIDING SCALE (NOVOLOG) 1 VIAL SQ SCH ×4 (08:42→22:24)
[2022-03-10] MEDS: FERROUS SO4 325 MG TABLET (FP) PO SCH (08:48)
[2022-03-10] MEDS ORDERED: ZINC SULFATE 220 MG CAPSULE (FP) ONE (09:32)
[2022-03-10] MEDS ORDERED: METOPROLOL TARTRATE 50 MG TABLET (FP) ONE (09:32)
[2022-03-10] MEDS ORDERED: FOLIC ACID 1 MG TABLET (FP) ONE (09:32)
[2022-03-10] MEDS ORDERED: MULTIVITAMINS (DAILY MVI) TABLET (FP) ONE (09:33)
[2022-03-10] MEDS ORDERED: GABAPENTIN 300 MG CAPSULE ONE (09:34)
[2022-03-10] MEDS ORDERED: ISOSORBIDE MONONITRATE 30 MG TAB.SR.24H (FP) PO ONE (09:34)
[2022-03-10] MEDS ORDERED: FUROSEMIDE 20 MG TABLET (FP) ONE (09:34)
[2022-03-10] MEDS ORDERED: LEVOTHYROXINE NA 50 MCG TABLET (FP) ONE (09:34)
[2022-03-10] MEDS ORDERED: VANCOMYCIN/WATER 1250 MG 1,250 MG/250 ML BAG IVPB ONE (09:35)
[2022-03-10] MEDS ORDERED: ENOXAPARIN NA (PORCINE) 40 MG/0.4 ML DISP.SYRIN SQ ONE (09:35)
[2022-03-10] MEDS: VANCOMYCIN/WATER 1250 MG 1,250 MG/250 ML BAG IVPB SCH (09:53)
[2022-03-10] MEDS: POLYETHYLENE GLYCOL (HEALTHYLAX) 3350 17 GM PACKET PO SCH ×2 (09:53→22:15)
[2022-03-10] MEDS: FOLIC ACID 1 MG TABLET (FP) PO SCH (09:53)
[2022-03-10] MEDS: AMINO ACIDS/PROTEIN HYDROLYS 30 ML LIQUID.PKT PO SCH ×2 (09:53→17:11)
[2022-03-10] MEDS: RAMIPRIL 2.5 MG CAPSULE PO SCH (09:53)
[2022-03-10] MEDS: ZINC SULFATE 220 MG CAPSULE (FP) PO SCH (09:54)
[2022-03-10] MEDS: OMEGA-3 ACID ETHYL ESTERS (FATTY-ACIDS) 1 GM CAPSULE (FP) PO SCH (09:54)
[2022-03-10] MEDS: METOPROLOL TARTRATE 50 MG TABLET (FP) PO SCH ×2 (09:54→22:24)
[2022-03-10] MEDS: LEVOTHYROXINE NA 75 MCG TABLET (FP) PO SCH (09:54)
[2022-03-10] MEDS: FUROSEMIDE 20 MG TABLET (FP) PO SCH ×2 (09:54→22:15)
[2022-03-10] MEDS: MULTIVITAMINS (DAILY MVI) TABLET (FP) PO SCH (09:54)
[2022-03-10] MEDS: GABAPENTIN 300 MG CAPSULE PO SCH ×2 (09:54→22:24)
[2022-03-10] MEDS: ENOXAPARIN NA (PORCINE) 40 MG/0.4 ML DISP.SYRIN SQ SCH (09:54)
[2022-03-10] MEDS: ISOSORBIDE MONONITRATE 30 MG TAB.SR.24H (FP) PO SCH (09:54)
[2022-03-10] MEDS: ASCORBIC ACID 250 MG TABLET (FP) PO SCH (09:55)
[2022-03-10] MEDS: FENOFIBRIC ACID 135 MG CAP PO SCH (09:55)
[2022-03-10] MEDS: ANASTROZOLE 1 MG TABLET PO SCH (10:45)
[2022-03-10] MEDS: INSULIN (LEVEMIR) 100 UNITS/ML UNITS SQ SCH ×2 (10:53→22:34)
[2022-03-10] MEDS: AMMONIUM LACTATE 12% LOTION 225 GM BOTTLE TP SCH (14:06)
[2022-03-10] MEDS: DOXYCYCLINE HYCLATE 100 MG CAPSULE PO SCH (17:11)
[2022-03-11] MEDS: INSULIN (LEVEMIR) 100 UNITS/ML UNITS SQ SCH ×2 (06:01→22:25)
[2022-03-11] MEDS: INSULIN SLIDING SCALE (NOVOLOG) 1 VIAL SQ SCH ×4 (06:01→22:26)
[2022-03-11] MEDS: LIRAGLUTIDE 0.6 MG/0.1 ML PEN.INJCTR SQ SCH (06:22)
[2022-03-11] MEDS: MULTIVITAMINS (DAILY MVI) TABLET (FP) PO SCH (09:40)
[2022-03-11] MEDS: FOLIC ACID 1 MG TABLET (FP) PO SCH (09:40)
[2022-03-11] MEDS: ASCORBIC ACID 250 MG TABLET (FP) PO SCH (09:40)
[2022-03-11] MEDS: LEVOTHYROXINE NA 75 MCG TABLET (FP) PO SCH (09:40)
[2022-03-11] MEDS: ENOXAPARIN NA (PORCINE) 40 MG/0.4 ML DISP.SYRIN SQ SCH (09:41)
[2022-03-11] MEDS: ZINC SULFATE 220 MG CAPSULE (FP) PO SCH (09:41)
[2022-03-11] MEDS: GABAPENTIN 300 MG CAPSULE PO SCH ×2 (09:41→22:24)
[2022-03-11] MEDS: ISOSORBIDE MONONITRATE 30 MG TAB.SR.24H (FP) PO SCH (09:42)
[2022-03-11] MEDS: FUROSEMIDE 20 MG TABLET (FP) PO SCH ×2 (09:42→22:25)
[2022-03-11] MEDS: POLYETHYLENE GLYCOL (HEALTHYLAX) 3350 17 GM PACKET PO SCH ×2 (09:42→22:25)
[2022-03-11] MEDS: OMEGA-3 ACID ETHYL ESTERS (FATTY-ACIDS) 1 GM CAPSULE (FP) PO SCH (09:42)
[2022-03-11] MEDS: AMMONIUM LACTATE 12% LOTION 225 GM BOTTLE TP SCH (09:42)
[2022-03-11] MEDS: ANASTROZOLE 1 MG TABLET PO SCH (09:43)
[2022-03-11] MEDS: RAMIPRIL 2.5 MG CAPSULE PO SCH (09:43)
[2022-03-11] MEDS: FENOFIBRIC ACID 135 MG CAP PO SCH (09:43)
[2022-03-11] MEDS: DOXYCYCLINE HYCLATE 100 MG CAPSULE PO SCH ×2 (09:43→17:20)
[2022-03-11] MEDS: FERROUS SO4 325 MG TABLET (FP) PO SCH (09:45)
[2022-03-11] MEDS: AMINO ACIDS/PROTEIN HYDROLYS 30 ML LIQUID.PKT PO SCH ×2 (09:45→17:15)
[2022-03-11] MEDS: METOPROLOL TARTRATE 50 MG TABLET (FP) PO SCH ×2 (09:45→22:24)
[2022-03-11] MEDS ORDERED: FUROSEMIDE 20 MG TABLET (FP) PO SCH (22:18)
[2022-03-12] MEDS: FUROSEMIDE 20 MG TABLET (FP) PO SCH ×2 (06:32→13:46)
[2022-03-12] MEDS: INSULIN (LEVEMIR) 100 UNITS/ML UNITS SQ SCH (06:33)
[2022-03-12] MEDS: LIRAGLUTIDE 0.6 MG/0.1 ML PEN.INJCTR SQ SCH (06:34)
[2022-03-12] MEDS: INSULIN SLIDING SCALE (NOVOLOG) 1 VIAL SQ SCH ×3 (06:34→17:18)
[2022-03-12] MEDS: ASCORBIC ACID 250 MG TABLET (FP) PO SCH (09:18)
[2022-03-12] MEDS: DOXYCYCLINE HYCLATE 100 MG CAPSULE PO SCH ×2 (09:18→17:23)
[2022-03-12] MEDS: LEVOTHYROXINE NA 75 MCG TABLET (FP) PO SCH (09:18)
[2022-03-12] MEDS: ZINC SULFATE 220 MG CAPSULE (FP) PO SCH (09:18)
[2022-03-12] MEDS: MULTIVITAMINS (DAILY MVI) TABLET (FP) PO SCH (09:18)
[2022-03-12] MEDS: OMEGA-3 ACID ETHYL ESTERS (FATTY-ACIDS) 1 GM CAPSULE (FP) PO SCH (09:18)
[2022-03-12] MEDS: FENOFIBRIC ACID 135 MG CAP PO SCH (09:18)
[2022-03-12] MEDS: FOLIC ACID 1 MG TABLET (FP) PO SCH (09:19)
[2022-03-12] MEDS: RAMIPRIL 2.5 MG CAPSULE PO SCH (09:19)
[2022-03-12] MEDS: POLYETHYLENE GLYCOL (HEALTHYLAX) 3350 17 GM PACKET PO SCH ×2 (09:19→22:44)
[2022-03-12] MEDS: AMINO ACIDS/PROTEIN HYDROLYS 30 ML LIQUID.PKT PO SCH ×2 (09:19→17:23)
[2022-03-12] MEDS: ISOSORBIDE MONONITRATE 30 MG TAB.SR.24H (FP) PO SCH (09:19)
[2022-03-12] MEDS: ANASTROZOLE 1 MG TABLET PO SCH (09:19)
[2022-03-12] MEDS: ENOXAPARIN NA (PORCINE) 40 MG/0.4 ML DISP.SYRIN SQ SCH (09:19)
[2022-03-12] MEDS: GABAPENTIN 300 MG CAPSULE PO SCH ×2 (09:19→22:44)
[2022-03-12] MEDS: METOPROLOL TARTRATE 50 MG TABLET (FP) PO SCH ×2 (09:19→22:44)
[2022-03-12] MEDS: FERROUS SO4 325 MG TABLET (FP) PO SCH (09:19)
[2022-03-12] MEDS: AMMONIUM LACTATE 12% LOTION 225 GM BOTTLE TP SCH (12:02)
[2022-03-13] MEDS: INSULIN (LEVEMIR) 100 UNITS/ML UNITS SQ SCH ×3 (00:50→21:47)
[2022-03-13] MEDS: INSULIN SLIDING SCALE (NOVOLOG) 1 VIAL SQ SCH ×5 (00:51→22:00)
[2022-03-13] MEDS: FUROSEMIDE 20 MG TABLET (FP) PO SCH ×2 (06:51→14:42)
[2022-03-13] MEDS: LIRAGLUTIDE 0.6 MG/0.1 ML PEN.INJCTR SQ SCH (06:54)
[2022-03-13] MEDS: AMMONIUM LACTATE 12% LOTION 225 GM BOTTLE TP SCH (10:06)
[2022-03-13] MEDS: FOLIC ACID 1 MG TABLET (FP) PO SCH (10:06)
[2022-03-13] MEDS: ISOSORBIDE MONONITRATE 30 MG TAB.SR.24H (FP) PO SCH (10:06)
[2022-03-13] MEDS: RAMIPRIL 2.5 MG CAPSULE PO SCH (10:06)
[2022-03-13] MEDS: FERROUS SO4 325 MG TABLET (FP) PO SCH (10:06)
[2022-03-13] MEDS: ANASTROZOLE 1 MG TABLET PO SCH (10:06)
[2022-03-13] MEDS: AMINO ACIDS/PROTEIN HYDROLYS 30 ML LIQUID.PKT PO SCH ×2 (10:06→17:26)
[2022-03-13] MEDS: GABAPENTIN 300 MG CAPSULE PO SCH ×2 (10:07→21:47)
[2022-03-13] MEDS: METOPROLOL TARTRATE 50 MG TABLET (FP) PO SCH ×2 (10:07→21:46)
[2022-03-13] MEDS: ZINC SULFATE 220 MG CAPSULE (FP) PO SCH (10:07)
[2022-03-13] MEDS: MULTIVITAMINS (DAILY MVI) TABLET (FP) PO SCH (10:07)
[2022-03-13] MEDS: ENOXAPARIN NA (PORCINE) 40 MG/0.4 ML DISP.SYRIN SQ SCH (10:07)
[2022-03-13] MEDS: ASCORBIC ACID 250 MG TABLET (FP) PO SCH (10:07)
[2022-03-13] MEDS: FENOFIBRIC ACID 135 MG CAP PO SCH (10:07)
[2022-03-13] MEDS: DOXYCYCLINE HYCLATE 100 MG CAPSULE PO SCH ×2 (10:07→17:27)
[2022-03-13] MEDS: OMEGA-3 ACID ETHYL ESTERS (FATTY-ACIDS) 1 GM CAPSULE (FP) PO SCH (10:07)
[2022-03-13] MEDS: LEVOTHYROXINE NA 75 MCG TABLET (FP) PO SCH (10:07)
[2022-03-13] MEDS: POLYETHYLENE GLYCOL (HEALTHYLAX) 3350 17 GM PACKET PO SCH ×2 (10:18→21:46)
[2022-03-13] MEDS: COLLAGENASE CLOSTRIDIUM HIST. 30 GRAMS TUBE TP SCH (13:33)
[2022-03-13 14:30] VITALS: TEMP 98.2
[2022-03-14] MEDS: FUROSEMIDE 20 MG TABLET (FP) PO SCH (06:44)
[2022-03-14] MEDS: INSULIN (LEVEMIR) 100 UNITS/ML UNITS SQ SCH (07:40)
[2022-03-14] MEDS: INSULIN SLIDING SCALE (NOVOLOG) 1 VIAL SQ SCH (07:40)
[2022-03-14] MEDS: LIRAGLUTIDE 0.6 MG/0.1 ML PEN.INJCTR SQ SCH (07:41)
[2022-03-14] MEDS: OMEGA-3 ACID ETHYL ESTERS (FATTY-ACIDS) 1 GM CAPSULE (FP) PO SCH (07:45)
[2022-03-14 10:21] VITALS: BP 103/60; PULSE 92; RESP 11
[2022-03-14] MEDS: DOXYCYCLINE HYCLATE 100 MG CAPSULE PO SCH (10:41)
[2022-03-14] MEDS: FERROUS SO4 325 MG TABLET (FP) PO SCH (10:42)
[2022-03-14] MEDS: ZINC SULFATE 220 MG CAPSULE (FP) PO SCH (10:42)
[2022-03-14] MEDS: LEVOTHYROXINE NA 75 MCG TABLET (FP) PO SCH (10:42)
[2022-03-14] MEDS: ANASTROZOLE 1 MG TABLET PO SCH (10:42)
[2022-03-14] MEDS: ISOSORBIDE MONONITRATE 30 MG TAB.SR.24H (FP) PO SCH (10:42)
[2022-03-14] MEDS: ASCORBIC ACID 250 MG TABLET (FP) PO SCH (10:43)
[2022-03-14] MEDS: METOPROLOL TARTRATE 50 MG TABLET (FP) PO SCH (10:43)
[2022-03-14] MEDS: RAMIPRIL 2.5 MG CAPSULE PO SCH (10:43)
[2022-03-14] MEDS: FOLIC ACID 1 MG TABLET (FP) PO SCH (10:43)
[2022-03-14] MEDS: MULTIVITAMINS (DAILY MVI) TABLET (FP) PO SCH (10:44)
[2022-03-14] MEDS: GABAPENTIN 300 MG CAPSULE PO SCH (10:44)
[2022-03-14] MEDS: COLLAGENASE CLOSTRIDIUM HIST. 30 GRAMS TUBE TP SCH (10:44)
[2022-03-14] MEDS: POLYETHYLENE GLYCOL (HEALTHYLAX) 3350 17 GM PACKET PO SCH (10:45)
[2022-03-14] MEDS: AMMONIUM LACTATE 12% LOTION 225 GM BOTTLE TP SCH (10:45)
[2022-03-14] MEDS: ENOXAPARIN NA (PORCINE) 40 MG/0.4 ML DISP.SYRIN SQ SCH (10:45)
[2022-03-14] MEDS: AMINO ACIDS/PROTEIN HYDROLYS 30 ML LIQUID.PKT PO SCH (10:45)
[2022-03-14] MEDS: FENOFIBRIC ACID 135 MG CAP PO SCH (10:46)
[2022-03-14 12:46] LABS: CALCIUM 8.8 mg/dL (8.5-10.1)
[2022-03-14 12:47] LABS: BLOOD UREA NITROGEN 63.6 mg/dL (7-18)
[2022-03-14 12:50] LABS: CREATININE 2.4 mg/dL (0.55-1.3)
[2022-03-14] MEDS ORDERED: SODIUM CHLORIDE 1,000 ML IV SCH (14:15)
== END 2022-03-14 13:00 | DRG 603 ==
LOC: JER 11:31 → JERBED 16:39 → J6W 03-10 12:40
PROVIDERS: ADMIT Internal Medicine; ATTEND Internal Medicine
DX: L03.115 Cellulitis of right lower limb (principal); N17.9 Acute kidney failure, unspecified; L03.116 Cellulitis of left lower limb; I87.8 Other specified disorders of veins; E11.51 Type 2 diabetes mellitus with diabetic peripheral angiopathy without gangrene; I25.10 Atherosclerotic heart disease of native coronary artery without angina pectoris; E03.9 Hypothyroidism, unspecified; I10 Essential (primary) hypertension; I87.2 Venous insufficiency (chronic) (peripheral); E11.65 Type 2 diabetes mellitus with hyperglycemia
CPT/HCPCS: 36415; 71045-TC-FY; 80048; 80053; 82962; 83036; 83735; 84443; 85025; 85610; 85730; 87040; 93005; 93010; 93970-TC; 97116-GP; 97162-GP; 99285-25; C9803-CS; U0003; U0005

== ENCOUNTER 2022-04-03 15:32 | Inpatient (IN) | payer OTHER ==
[2022-04-03 16:00] VITALS: BMI 32.5
[2022-04-03] MEDS ORDERED: LACTATED RINGERS SOLUTION 1000 ML INFUS.BAG IV ONE ×2 (16:13→17:43)
[2022-04-03] MEDS ORDERED: ACETAMINOPHEN 1000 MG/100 ML BAG IVPB ONE (16:13)
[2022-04-03] MEDS ORDERED: ONDANSETRON 4 MG/2 ML VIAL IVPUSH ONE (16:13)
[2022-04-03] MEDS ORDERED: ACETAMINOPHEN INJECTION 100 ML IVPB ONE (16:22)
[2022-04-03] MEDS ORDERED: ONDANSETRON 4 MG/2 ML VIAL ONE (16:22)
[2022-04-03 17:32] LABS: BASO % 0.3 % (0-2.0); EOS % 0.6 % (0-4.5); HEMATOCRIT 40.6 % (32.4-45.2); LYMPH % 13.3 % (8-40); MCH 25.7 pg (25.7-33.7); MCHC 32.1 g/dl (32.0-36.0); MEAN CELL VOLUME 80.1 fl (80-96); MEAN PLT VOLUME 8.4 fl (7.5-11.1); MONO % 6.3 % (3.8-10.2); NEUT % 79.5 % (42.8-82.8); PLATELET COUNT 298 10^3/uL (134-434); RBC 5.07 M/mm3 (3.60-5.2); RDW 18.6 % (11.6-15.6); WHITE BLOOD COUNT 17.2 K/mm3 (4.0-10.0)
[2022-04-03 17:34] LABS: VENOUS BASE EXCESS 0.9 mmol/L (-2-2); VENOUS O2 SATURATION 86.2 % (70-80); VENOUS PH 7.354 (7.310-7.410)
[2022-04-03 17:51] LABS: CALCIUM 9.4 mg/dL (8.5-10.1)
[2022-04-03 17:52] LABS: ALBUMIN 3.2 g/dl (3.4-5.0); BLOOD UREA NITROGEN 86.2 mg/dL (7-18)
[2022-04-03 17:55] LABS: CREATININE 4.5 mg/dL (0.55-1.3)
[2022-04-03 17:57] LABS: INR 1.24 (0.83-1.09); PROTHROMBIN TIME (PATIENT) 14.3 SEC (9.7-13.0); TOT PROT 7.6 g/dl (6.4-8.2)
[2022-04-03 18:00] LABS: ACTIVATED PTT 33.4 SECONDS (25.2-36.5); N-TERMINAL BNP 311.2 pg/ml (5-450)
[2022-04-03] MEDS ORDERED: PIPERACILLIN/TAZOB 4.5 GM 4.5 GM in DEXTROSE 5%-WATER 100 ML IVPB ONE (18:27)
[2022-04-03] MEDS ORDERED: VANCOMYCIN 1 GM in D5W (PRE-DOCKED) 1,000 MG/250 ML IVPB ONE (18:27)
[2022-04-03] MEDS ORDERED: PIPERACILLIN/TAZOB 4.5 GM 4.5 GM/100 ML BAG IVPB ONE (18:30)
[2022-04-03] MEDS ORDERED: ENOXAPARIN NA (PORCINE) 40 MG/0.4 ML DISP.SYRIN SQ ONE (19:43)
[2022-04-03] MEDS ORDERED: VANCOMYCIN/WATER FOR INJ (PEG) 1,000 MG/200 ML BAG IVPB ONE (20:01)
[2022-04-03 20:46] LABS: BLOOD UREA NITROGEN 84.6 mg/dL (7-18); CALCIUM 8.8 mg/dL (8.5-10.1)
[2022-04-03 20:50] LABS: CREATININE 4.6 mg/dL (0.55-1.3)
[2022-04-03] MEDS ORDERED: ENOXAPARIN NA (PORCINE) 30 MG/0.3 ML DISP.SYRIN SQ ONE (20:55)
[2022-04-03] MEDS ORDERED: ENOXAPARIN NA (PORCINE) 80 MG/0.8 ML DISP.SYRIN SQ ONE (20:56)
[2022-04-03] MEDS ORDERED: AZITHROMYCIN IVPB 500 MG in DEXTROSE 5%-WATER - 250 ML IVPB ONE (21:00)
[2022-04-03] MEDS ORDERED: AZITHROMYCIN IVPB 500 MG/250 ML BAG IVPB ONE (21:16)
[2022-04-03] MEDS ORDERED: SODIUM CHLORIDE 1,000 ML IV SCH (21:45)
[2022-04-03] MEDS: INSULIN SLIDING SCALE (NOVOLOG) 1 VIAL SQ SCH (22:27)
[2022-04-03 22:38] LABS: EPI CELLS 27 /uL (0-25.1); HYALINE CASTS 1 /uL (0-3.1); URINE APPEARANCE TURBID; URINE BILIRUBIN 2+ (NEGATIVE); URINE COLOR ORANGE; URINE GLUCOSE (UA) NEGATIVE (NEGATIVE); URINE KETONE NEGATIVE (NEGATIVE); URINE LEUK ESTERASE 2+ (NEGATIVE); URINE NITRITE POSITIVE (NEGATIVE); URINE PROTEIN 2+ (NEGATIVE); URINE RBC 0 /uL (0-23.9); URINE UROBILINOGEN 0.2 mg/dL (0.2-1.0); URINE WBC 17 /uL (0-25.8)
[2022-04-04] MEDS ORDERED: guaiFENesin/D-METHORPHAN HB 10 ML UNIT-DOSE CUPS ONE ×2 (00:16→17:07)
[2022-04-04] MEDS: guaiFENesin/D-M SUGAR-FREE/ACLHOL-FREE 118 ML BOTTLE PO PRN ×2 (00:17→17:21)
[2022-04-04] MEDS: PIPERACILLIN/TAZOB 2.25 GM 2.25 GM in DEXTROSE 5%-WATER - 50 ML IVPB SCH ×3 (04:16→17:22)
[2022-04-04] MEDS ORDERED: PIPERACILLIN/TAZOB 2.25 GM 2.25 GM/50 ML BAG IVPB ONE ×4 (04:17→17:16)
[2022-04-04] MEDS ORDERED: MAG HYDROX/AL HYDROX/SIMETH 30 ML UNIT-DOSE CUP PO PRN (06:27)
[2022-04-04] MEDS: INSULIN SLIDING SCALE (NOVOLOG) 1 VIAL SQ SCH ×4 (07:00→22:07)
[2022-04-04] MEDS ORDERED: FERROUS SO4 325 MG TABLET (FP) ONE (10:18)
[2022-04-04] MEDS ORDERED: FOLIC ACID 1 MG TABLET (FP) ONE (10:18)
[2022-04-04] MEDS ORDERED: POLYETHYLENE GLYCOL (HEALTHYLAX) 3350 17 GM PACKET ONE ×2 (10:18→21:47)
[2022-04-04] MEDS ORDERED: FAMOTIDINE 10 MG TABLET ONE (10:18)
[2022-04-04] MEDS ORDERED: LEVOTHYROXINE NA 50 MCG TABLET (FP) ONE (10:19)
[2022-04-04] MEDS ORDERED: MULTIVITAMINS (DAILY MVI) TABLET (FP) ONE (10:19)
[2022-04-04] MEDS: FERROUS SO4 325 MG TABLET (FP) PO SCH (10:25)
[2022-04-04] MEDS: LEVOTHYROXINE NA 50 MCG TABLET (FP) PO SCH (10:25)
[2022-04-04] MEDS: FAMOTIDINE 10 MG TABLET PO SCH (10:27)
[2022-04-04] MEDS: ANASTROZOLE 1 MG TABLET PO SCH (10:27)
[2022-04-04] MEDS: MULTIVITAMINS (DAILY MVI) TABLET (FP) PO SCH (10:28)
[2022-04-04] MEDS: POLYETHYLENE GLYCOL (HEALTHYLAX) 3350 17 GM PACKET PO SCH ×3 (10:30→22:03)
[2022-04-04] MEDS: AMMONIUM LACTATE 12% LOTION 225 GM BOTTLE TP SCH (10:30)
[2022-04-04] MEDS: FOLIC ACID 1 MG TABLET (FP) PO SCH (10:31)
[2022-04-04 11:59] LABS: CALCIUM 8.8 mg/dL (8.5-10.1)
[2022-04-04 12:03] LABS: CREATININE 3.8 mg/dL (0.55-1.3); PHOSPHOROUS 3.7 mg/dL (2.5-4.9)
[2022-04-04 13:02] LABS: MAGNESIUM 2.2 mg/dL (1.8-2.4)
[2022-04-04 13:23] LABS: URINE BACTERIA 43.5 /uL (0-1359)
[2022-04-04] MEDS: NYSTATIN POWDER 100,000 UNITS/GM - 15 GM TOPICAL POWDER TP SCH ×2 (15:01→22:39)
[2022-04-04] MEDS ORDERED: AZITHROMYCIN IVPB 500 MG/250 ML BAG IVPB ONE (15:32)
[2022-04-04] MEDS: SODIUM CHLORIDE 1,000 ML IV SCH (15:42)
[2022-04-04] MEDS: AZITHROMYCIN IVPB 500 MG/250 ML BAG IVPB SCH (15:43)
[2022-04-04] MEDS ORDERED: VANCOMYCIN PREMIX 1.5 GM 1,500 MG/300 ML BAG IVPB SCH (20:00)
[2022-04-04] MEDS ORDERED: INSULIN (NOVOLOG) ASPART 100 UNITS/ML 10ML VIAL ONE (21:56)
[2022-04-05] MEDS: PIPERACILLIN/TAZOB 2.25 GM 2.25 GM in DEXTROSE 5%-WATER - 50 ML IVPB SCH ×3 (02:00→18:40)
[2022-04-05] MEDS: LEVOTHYROXINE NA 50 MCG TABLET (FP) PO SCH (09:00)
[2022-04-05] MEDS: AMMONIUM LACTATE 12% LOTION 225 GM BOTTLE TP SCH (09:00)
[2022-04-05] MEDS: POLYETHYLENE GLYCOL (HEALTHYLAX) 3350 17 GM PACKET PO SCH (09:00)
[2022-04-05] MEDS: FAMOTIDINE 10 MG TABLET PO SCH (09:00)
[2022-04-05] MEDS: FOLIC ACID 1 MG TABLET (FP) PO SCH (09:00)
[2022-04-05] MEDS: ANASTROZOLE 1 MG TABLET PO SCH (09:00)
[2022-04-05] MEDS: FERROUS SO4 325 MG TABLET (FP) PO SCH (09:00)
[2022-04-05] MEDS: INSULIN SLIDING SCALE (NOVOLOG) 1 VIAL SQ SCH ×3 (09:00→17:50)
[2022-04-05] MEDS: MULTIVITAMINS (DAILY MVI) TABLET (FP) PO SCH (09:01)
[2022-04-05] MEDS: AZITHROMYCIN IVPB 500 MG/250 ML BAG IVPB SCH (09:01)
[2022-04-05] MEDS: NYSTATIN POWDER 100,000 UNITS/GM - 15 GM TOPICAL POWDER TP SCH ×2 (09:04→14:32)
[2022-04-05] MEDS ORDERED: FAMOTIDINE 10 MG TABLET ONE (09:24)
[2022-04-05] MEDS ORDERED: FOLIC ACID 1 MG TABLET (FP) ONE (09:24)
[2022-04-05] MEDS ORDERED: PIPERACILLIN/TAZOB 2.25 GM 2.25 GM/50 ML BAG IVPB ONE (09:25)
[2022-04-05] MEDS ORDERED: FERROUS SO4 325 MG TABLET (FP) ONE (09:25)
[2022-04-05] MEDS ORDERED: MULTIVITAMINS (DAILY MVI) TABLET (FP) ONE (09:25)
[2022-04-05] MEDS ORDERED: LEVOTHYROXINE NA 50 MCG TABLET (FP) ONE (09:25)
[2022-04-05] MEDS ORDERED: AZITHROMYCIN IVPB 500 MG/250 ML BAG IVPB ONE (09:25)
[2022-04-05 13:31] LABS: BASO % 0.3 % (0-2.0); EOS % 1.2 % (0-4.5); HEMOGLOBIN 10.8 GM/dL (10.7-15.3); MCH 25.6 pg (25.7-33.7); MCHC 31.7 g/dl (32.0-36.0); MEAN CELL VOLUME 80.9 fl (80-96); MEAN PLT VOLUME 7.9 fl (7.5-11.1); MONO % 5.7 % (3.8-10.2); NEUT % 80.8 % (42.8-82.8); PLATELET COUNT 173 10^3/uL (134-434); RDW 18.3 % (11.6-15.6); WHITE BLOOD COUNT 12.6 K/mm3 (4.0-10.0)
[2022-04-05 13:54] LABS: CALCIUM 8.8 mg/dL (8.5-10.1)
[2022-04-05 13:55] LABS: BLOOD UREA NITROGEN 51.5 mg/dL (7-18)
[2022-04-05 14:00] LABS: TOT PROT 6.2 g/dl (6.4-8.2)
[2022-04-05 14:09] LABS: ALBUMIN 2.5 g/dl (3.4-5.0); BILIRUBIN,TOTAL 0.7 mg/dL (0.2-1); CREATININE 1.9 mg/dL (0.55-1.3)
[2022-04-05] MEDS: SODIUM CHLORIDE 1,000 ML IV SCH (15:27)
[2022-04-05] MEDS ORDERED: LIDOCAINE 5% TOPICAL PATCH ONE (15:30)
[2022-04-06] MEDS: guaiFENesin/D-M SUGAR-FREE/ACLHOL-FREE 118 ML BOTTLE PO PRN ×3 (00:45→18:30)
[2022-04-06] MEDS: POLYETHYLENE GLYCOL (HEALTHYLAX) 3350 17 GM PACKET PO SCH ×2 (00:54→09:59)
[2022-04-06] MEDS: INSULIN SLIDING SCALE (NOVOLOG) 1 VIAL SQ SCH ×4 (00:54→18:30)
[2022-04-06] MEDS: NYSTATIN POWDER 100,000 UNITS/GM - 15 GM TOPICAL POWDER TP SCH ×3 (00:55→13:24)
[2022-04-06] MEDS ORDERED: PIPERACILLIN/TAZOB 2.25 GM 2.25 GM/50 ML BAG IVPB ONE ×3 (03:56→18:09)
[2022-04-06] MEDS: PIPERACILLIN/TAZOB 2.25 GM 2.25 GM in DEXTROSE 5%-WATER - 50 ML IVPB SCH ×3 (04:20→18:38)
[2022-04-06] MEDS ORDERED: LEVOTHYROXINE NA 50 MCG TABLET (FP) ONE (06:02)
[2022-04-06] MEDS: LEVOTHYROXINE NA 50 MCG TABLET (FP) PO SCH (06:13)
[2022-04-06 08:45] LABS: BASO % 0.4 % (0-2.0); EOS % 1.5 % (0-4.5); HEMATOCRIT 32.7 % (32.4-45.2); HEMOGLOBIN 10.6 GM/dL (10.7-15.3); LYMPH % 14.8 % (8-40); MCH 26.1 pg (25.7-33.7); MCHC 32.4 g/dl (32.0-36.0); MEAN CELL VOLUME 80.6 fl (80-96); MEAN PLT VOLUME 7.5 fl (7.5-11.1); MONO % 5.5 % (3.8-10.2); NEUT % 77.8 % (42.8-82.8); PLATELET COUNT 174 10^3/uL (134-434); RBC 4.06 M/mm3 (3.60-5.2); RDW 18.5 % (11.6-15.6); WHITE BLOOD COUNT 9.9 K/mm3 (4.0-10.0)
[2022-04-06 09:02] LABS: ALBUMIN 2.4 g/dl (3.4-5.0); BLOOD UREA NITROGEN 35.1 mg/dL (7-18); CALCIUM 9.2 mg/dL (8.5-10.1)
[2022-04-06 09:05] LABS: CREATININE 1.3 mg/dL (0.55-1.3)
[2022-04-06 09:09] LABS: BILIRUBIN,TOTAL 0.6 mg/dL (0.2-1); TOT PROT 6.3 g/dl (6.4-8.2)
[2022-04-06] MEDS ORDERED: FAMOTIDINE 10 MG TABLET ONE (09:34)
[2022-04-06] MEDS ORDERED: FERROUS SO4 325 MG TABLET (FP) ONE (09:34)
[2022-04-06] MEDS ORDERED: AZITHROMYCIN IVPB 500 MG/250 ML BAG IVPB ONE (09:34)
[2022-04-06] MEDS ORDERED: FOLIC ACID 1 MG TABLET (FP) ONE (09:34)
[2022-04-06] MEDS ORDERED: MULTIVITAMINS (DAILY MVI) TABLET (FP) ONE (09:34)
[2022-04-06] MEDS: AZITHROMYCIN IVPB 500 MG/250 ML BAG IVPB SCH (09:45)
[2022-04-06] MEDS: AMMONIUM LACTATE 12% LOTION 225 GM BOTTLE TP SCH (09:59)
[2022-04-06] MEDS: FOLIC ACID 1 MG TABLET (FP) PO SCH (10:07)
[2022-04-06] MEDS: FAMOTIDINE 10 MG TABLET PO SCH (10:07)
[2022-04-06] MEDS: FERROUS SO4 325 MG TABLET (FP) PO SCH (10:07)
[2022-04-06] MEDS: MULTIVITAMINS (DAILY MVI) TABLET (FP) PO SCH (10:07)
[2022-04-06] MEDS: ANASTROZOLE 1 MG TABLET PO SCH (11:15)
[2022-04-06] MEDS: SODIUM CHLORIDE 1,000 ML IV SCH (16:00)
[2022-04-07] MEDS: INSULIN SLIDING SCALE (NOVOLOG) 1 VIAL SQ SCH ×5 (02:31→22:45)
[2022-04-07] MEDS: POLYETHYLENE GLYCOL (HEALTHYLAX) 3350 17 GM PACKET PO SCH ×3 (04:38→22:39)
[2022-04-07] MEDS: NYSTATIN POWDER 100,000 UNITS/GM - 15 GM TOPICAL POWDER TP SCH ×4 (04:38→22:40)
[2022-04-07] MEDS: PIPERACILLIN/TAZOB 2.25 GM 2.25 GM in DEXTROSE 5%-WATER - 50 ML IVPB SCH ×3 (07:17→18:27)
[2022-04-07] MEDS ORDERED: PIPERACILLIN/TAZOB 2.25 GM 2.25 GM/50 ML BAG IVPB ONE ×3 (07:21→09:27)
[2022-04-07 08:18] LABS: HEMOGLOBIN 10.7 GM/dL (10.7-15.3); MCH 26.2 pg (25.7-33.7); MCHC 32.5 g/dl (32.0-36.0); MEAN CELL VOLUME 80.7 fl (80-96); MEAN PLT VOLUME 7.8 fl (7.5-11.1); PLATELET COUNT 188 10^3/uL (134-434); RBC 4.09 M/mm3 (3.60-5.2); RDW 18.4 % (11.6-15.6); WHITE BLOOD COUNT 7.6 K/mm3 (4.0-10.0)
[2022-04-07 08:35] LABS: MAGNESIUM 1.6 mg/dL (1.8-2.4)
[2022-04-07 08:37] LABS: IRON SERUM 38 ug/dL (50-175)
[2022-04-07 08:37] LABS: CALCIUM 8.8 mg/dL (8.5-10.1)
[2022-04-07 08:38] LABS: CREATININE 1.1 mg/dL (0.55-1.3)
[2022-04-07 08:38] LABS: TOTAL IRON BINDING CAPACITY 199 ug/dL (250-450)
[2022-04-07 08:40] LABS: ALBUMIN 2.2 g/dl (3.4-5.0); BLOOD UREA NITROGEN 21.9 mg/dL (7-18); TOT PROT 5.9 g/dl (6.4-8.2)
[2022-04-07 08:44] LABS: BILIRUBIN,TOTAL 0.8 mg/dL (0.2-1)
[2022-04-07] MEDS: FOLIC ACID 1 MG TABLET (FP) PO SCH (09:11)
[2022-04-07] MEDS: FERROUS SO4 325 MG TABLET (FP) PO SCH (09:11)
[2022-04-07] MEDS: AMMONIUM LACTATE 12% LOTION 225 GM BOTTLE TP SCH (09:11)
[2022-04-07] MEDS: LEVOTHYROXINE NA 50 MCG TABLET (FP) PO SCH (09:11)
[2022-04-07] MEDS: ANASTROZOLE 1 MG TABLET PO SCH (09:11)
[2022-04-07] MEDS: FAMOTIDINE 10 MG TABLET PO SCH (09:11)
[2022-04-07] MEDS: MULTIVITAMINS (DAILY MVI) TABLET (FP) PO SCH (09:11)
[2022-04-07] MEDS: AZITHROMYCIN IVPB 500 MG/250 ML BAG IVPB SCH (09:12)
[2022-04-07] MEDS ORDERED: FAMOTIDINE 10 MG TABLET ONE (09:16)
[2022-04-07] MEDS ORDERED: FERROUS SO4 325 MG TABLET (FP) ONE (09:16)
[2022-04-07] MEDS ORDERED: LEVOTHYROXINE NA 50 MCG TABLET (FP) ONE ×2 (09:16→09:18)
[2022-04-07] MEDS ORDERED: AZITHROMYCIN IVPB 500 MG/250 ML BAG IVPB ONE ×2 (09:17→09:28)
[2022-04-07] MEDS ORDERED: INSULIN (NOVOLOG) ASPART 100 UNITS/ML 10ML VIAL ONE (09:20)
[2022-04-07] MEDS ORDERED: METOPROLOL TARTRATE 50 MG TABLET (FP) PO ONE (17:15)
[2022-04-07] MEDS ORDERED: IRON SUCROSE INJECTION 200 MG in SODIUM CHLORIDE 90 ML IVPB ONE (18:30)
[2022-04-07] MEDS: guaiFENesin/D-M SUGAR-FREE/ACLHOL-FREE 118 ML BOTTLE PO PRN (20:23)
[2022-04-07] MEDS: METOPROLOL TARTRATE 50 MG TABLET (FP) PO SCH (22:39)
[2022-04-08] MEDS: PIPERACILLIN/TAZOB 2.25 GM 2.25 GM in DEXTROSE 5%-WATER - 50 ML IVPB SCH ×3 (01:52→17:48)
[2022-04-08] MEDS: INSULIN SLIDING SCALE (NOVOLOG) 1 VIAL SQ SCH ×4 (06:15→21:00)
[2022-04-08] MEDS: LEVOTHYROXINE NA 50 MCG TABLET (FP) PO SCH (06:15)
[2022-04-08] MEDS: NYSTATIN POWDER 100,000 UNITS/GM - 15 GM TOPICAL POWDER TP SCH ×3 (06:17→21:00)
[2022-04-08] MEDS: guaiFENesin/D-M SUGAR-FREE/ACLHOL-FREE 118 ML BOTTLE PO PRN ×2 (06:18→21:00)
[2022-04-08 09:10] LABS: HEMATOCRIT 33.1 % (32.4-45.2); MCH 26.3 pg (25.7-33.7); MCHC 33.3 g/dl (32.0-36.0); MEAN CELL VOLUME 79.1 fl (80-96); MEAN PLT VOLUME 7.2 fl (7.5-11.1); PLATELET COUNT 197 10^3/uL (134-434); RBC 4.19 M/mm3 (3.60-5.2); RDW 17.8 % (11.6-15.6); WHITE BLOOD COUNT 10.8 K/mm3 (4.0-10.0)
[2022-04-08 09:32] LABS: ALBUMIN 2.4 g/dl (3.4-5.0); BLOOD UREA NITROGEN 13.4 mg/dL (7-18); CALCIUM 8.7 mg/dL (8.5-10.1); MAGNESIUM 1.4 mg/dL (1.8-2.4)
[2022-04-08 09:37] LABS: BILIRUBIN,TOTAL 0.5 mg/dL (0.2-1); TOT PROT 6.2 g/dl (6.4-8.2)
[2022-04-08] MEDS: POLYETHYLENE GLYCOL (HEALTHYLAX) 3350 17 GM PACKET PO SCH ×3 (10:00→21:00)
[2022-04-08] MEDS: FERROUS SO4 325 MG TABLET (FP) PO SCH (10:01)
[2022-04-08] MEDS: METOPROLOL TARTRATE 50 MG TABLET (FP) PO SCH ×2 (10:01→21:00)
[2022-04-08] MEDS: FOLIC ACID 1 MG TABLET (FP) PO SCH (10:01)
[2022-04-08] MEDS: FAMOTIDINE 10 MG TABLET PO SCH (10:01)
[2022-04-08] MEDS: AZITHROMYCIN IVPB 500 MG/250 ML BAG IVPB SCH (10:02)
[2022-04-08] MEDS: MULTIVITAMINS (DAILY MVI) TABLET (FP) PO SCH (10:02)
[2022-04-08] MEDS: ANASTROZOLE 1 MG TABLET PO SCH (10:03)
[2022-04-08] MEDS: AMMONIUM LACTATE 12% LOTION 225 GM BOTTLE TP SCH (10:03)
[2022-04-08] MEDS ORDERED: MAGNESIUM OXIDE 400 MG TABLET (FP) PO ONE (12:30)
[2022-04-08] MEDS ORDERED: MAGNESIUM 2GM/50ML STERILE WATER IVPB IVPB ONE (12:30)
[2022-04-08] MEDS: AMINO ACIDS/PROTEIN HYDROLYS 30 ML LIQUID.PKT PO SCH ×2 (17:48→18:26)
[2022-04-08] MEDS ORDERED: MAG HYDROX/AL HYDROX/SIMETH 30 ML UNIT-DOSE CUP PO PRN (23:09)
[2022-04-09] MEDS: LEVOTHYROXINE NA 50 MCG TABLET (FP) PO SCH (06:13)
[2022-04-09] MEDS: NYSTATIN POWDER 100,000 UNITS/GM - 15 GM TOPICAL POWDER TP SCH ×3 (06:13→21:22)
[2022-04-09] MEDS: INSULIN SLIDING SCALE (NOVOLOG) 1 VIAL SQ SCH ×4 (06:20→21:22)
[2022-04-09] MEDS: guaiFENesin/D-M SUGAR-FREE/ACLHOL-FREE 118 ML BOTTLE PO PRN ×3 (06:20→21:22)
[2022-04-09 09:49] LABS: BLOOD UREA NITROGEN 11.1 mg/dL (7-18)
[2022-04-09 09:50] LABS: CALCIUM 8.5 mg/dL (8.5-10.1)
[2022-04-09 09:52] LABS: CREATININE 0.9 mg/dL (0.55-1.3)
[2022-04-09] MEDS: FERROUS SO4 325 MG TABLET (FP) PO SCH (11:07)
[2022-04-09] MEDS: FAMOTIDINE 10 MG TABLET PO SCH (11:07)
[2022-04-09] MEDS: HEPARIN NA (PORCINE) 5,000 UNITS/ML 1ML VIAL SQ SCH ×2 (11:07→21:22)
[2022-04-09] MEDS: FOLIC ACID 1 MG TABLET (FP) PO SCH (11:07)
[2022-04-09] MEDS: METOPROLOL TARTRATE 50 MG TABLET (FP) PO SCH ×2 (11:07→21:22)
[2022-04-09] MEDS: POLYETHYLENE GLYCOL (HEALTHYLAX) 3350 17 GM PACKET PO SCH ×2 (11:08→21:22)
[2022-04-09] MEDS: AMINO ACIDS/PROTEIN HYDROLYS 30 ML LIQUID.PKT PO SCH ×2 (11:11→17:39)
[2022-04-09] MEDS: MULTIVITAMINS (DAILY MVI) TABLET (FP) PO SCH (11:13)
[2022-04-09] MEDS: AMMONIUM LACTATE 12% LOTION 225 GM BOTTLE TP SCH (11:16)
[2022-04-09] MEDS: INSULIN (LEVEMIR) 100 UNITS/ML UNITS SQ SCH ×2 (11:24→21:22)
[2022-04-09] MEDS: ANASTROZOLE 1 MG TABLET PO SCH (14:12)
[2022-04-10] MEDS: NYSTATIN POWDER 100,000 UNITS/GM - 15 GM TOPICAL POWDER TP SCH ×3 (06:07→22:44)
[2022-04-10] MEDS: LEVOTHYROXINE NA 50 MCG TABLET (FP) PO SCH (06:07)
[2022-04-10] MEDS: guaiFENesin/D-M SUGAR-FREE/ACLHOL-FREE 118 ML BOTTLE PO PRN ×2 (06:13→18:15)
[2022-04-10] MEDS: INSULIN SLIDING SCALE (NOVOLOG) 1 VIAL SQ SCH ×4 (06:13→22:42)
[2022-04-10] MEDS: AMINO ACIDS/PROTEIN HYDROLYS 30 ML LIQUID.PKT PO SCH ×2 (09:28→17:02)
[2022-04-10] MEDS: FERROUS SO4 325 MG TABLET (FP) PO SCH (09:28)
[2022-04-10] MEDS: METOPROLOL TARTRATE 50 MG TABLET (FP) PO SCH ×2 (09:38→22:42)
[2022-04-10] MEDS: MULTIVITAMINS (DAILY MVI) TABLET (FP) PO SCH (09:38)
[2022-04-10] MEDS: ANASTROZOLE 1 MG TABLET PO SCH (09:39)
[2022-04-10] MEDS: AMMONIUM LACTATE 12% LOTION 225 GM BOTTLE TP SCH (09:39)
[2022-04-10] MEDS: FOLIC ACID 1 MG TABLET (FP) PO SCH (09:39)
[2022-04-10] MEDS: HEPARIN NA (PORCINE) 5,000 UNITS/ML 1ML VIAL SQ SCH ×2 (09:39→22:42)
[2022-04-10] MEDS: FAMOTIDINE 10 MG TABLET PO SCH (09:39)
[2022-04-10] MEDS: INSULIN (LEVEMIR) 100 UNITS/ML UNITS SQ SCH ×2 (09:40→22:44)
[2022-04-10] MEDS: POLYETHYLENE GLYCOL (HEALTHYLAX) 3350 17 GM PACKET PO SCH ×2 (09:45→22:45)
[2022-04-11] MEDS: INSULIN SLIDING SCALE (NOVOLOG) 1 VIAL SQ SCH ×4 (06:28→21:16)
[2022-04-11] MEDS: LEVOTHYROXINE NA 50 MCG TABLET (FP) PO SCH (06:30)
[2022-04-11] MEDS: NYSTATIN POWDER 100,000 UNITS/GM - 15 GM TOPICAL POWDER TP SCH ×3 (06:30→21:17)
[2022-04-11] MEDS: guaiFENesin/D-M SUGAR-FREE/ACLHOL-FREE 118 ML BOTTLE PO PRN ×2 (06:31→15:11)
[2022-04-11] MEDS: FERROUS SO4 325 MG TABLET (FP) PO SCH (08:08)
[2022-04-11] MEDS: AMINO ACIDS/PROTEIN HYDROLYS 30 ML LIQUID.PKT PO SCH ×2 (08:08→17:10)
[2022-04-11] MEDS: HEPARIN NA (PORCINE) 5,000 UNITS/ML 1ML VIAL SQ SCH ×2 (10:29→21:10)
[2022-04-11] MEDS: FAMOTIDINE 10 MG TABLET PO SCH (10:29)
[2022-04-11] MEDS: ANASTROZOLE 1 MG TABLET PO SCH (10:29)
[2022-04-11] MEDS: MULTIVITAMINS (DAILY MVI) TABLET (FP) PO SCH (10:29)
[2022-04-11] MEDS: POLYETHYLENE GLYCOL (HEALTHYLAX) 3350 17 GM PACKET PO SCH ×2 (10:29→21:10)
[2022-04-11] MEDS: FOLIC ACID 1 MG TABLET (FP) PO SCH (10:30)
[2022-04-11] MEDS: METOPROLOL TARTRATE 50 MG TABLET (FP) PO SCH ×2 (10:30→21:15)
[2022-04-11] MEDS: AMMONIUM LACTATE 12% LOTION 225 GM BOTTLE TP SCH (10:36)
[2022-04-11] MEDS: INSULIN (LEVEMIR) 100 UNITS/ML UNITS SQ SCH ×2 (10:36→21:14)
[2022-04-12] MEDS: NYSTATIN POWDER 100,000 UNITS/GM - 15 GM TOPICAL POWDER TP SCH ×3 (06:09→22:26)
[2022-04-12] MEDS: INSULIN SLIDING SCALE (NOVOLOG) 1 VIAL SQ SCH ×4 (06:09→22:58)
[2022-04-12] MEDS: LEVOTHYROXINE NA 50 MCG TABLET (FP) PO SCH (06:10)
[2022-04-12] MEDS: AMINO ACIDS/PROTEIN HYDROLYS 30 ML LIQUID.PKT PO SCH ×2 (07:59→17:31)
[2022-04-12] MEDS: FERROUS SO4 325 MG TABLET (FP) PO SCH (08:00)
[2022-04-12] MEDS: FOLIC ACID 1 MG TABLET (FP) PO SCH (11:46)
[2022-04-12] MEDS: FAMOTIDINE 10 MG TABLET PO SCH (11:46)
[2022-04-12] MEDS: POLYETHYLENE GLYCOL (HEALTHYLAX) 3350 17 GM PACKET PO SCH ×2 (11:46→22:25)
[2022-04-12] MEDS: METOPROLOL TARTRATE 50 MG TABLET (FP) PO SCH ×2 (11:46→22:26)
[2022-04-12] MEDS: AMMONIUM LACTATE 12% LOTION 225 GM BOTTLE TP SCH (11:47)
[2022-04-12] MEDS: INSULIN (LEVEMIR) 100 UNITS/ML UNITS SQ SCH ×2 (11:47→22:58)
[2022-04-12] MEDS: MULTIVITAMINS (DAILY MVI) TABLET (FP) PO SCH (11:47)
[2022-04-12] MEDS: ANASTROZOLE 1 MG TABLET PO SCH (11:47)
[2022-04-12] MEDS: HEPARIN NA (PORCINE) 5,000 UNITS/ML 1ML VIAL SQ SCH ×2 (11:48→22:25)
[2022-04-12] MEDS: guaiFENesin/D-M SUGAR-FREE/ACLHOL-FREE 118 ML BOTTLE PO PRN (11:52)
[2022-04-13] MEDS: guaiFENesin/D-M SUGAR-FREE/ACLHOL-FREE 118 ML BOTTLE PO PRN ×2 (00:37→09:34)
[2022-04-13] MEDS: INSULIN SLIDING SCALE (NOVOLOG) 1 VIAL SQ SCH ×4 (06:13→22:30)
[2022-04-13] MEDS: LEVOTHYROXINE NA 50 MCG TABLET (FP) PO SCH (06:13)
[2022-04-13] MEDS: NYSTATIN POWDER 100,000 UNITS/GM - 15 GM TOPICAL POWDER TP SCH ×3 (06:14→22:31)
[2022-04-13] MEDS: FERROUS SO4 325 MG TABLET (FP) PO SCH (08:27)
[2022-04-13] MEDS: AMINO ACIDS/PROTEIN HYDROLYS 30 ML LIQUID.PKT PO SCH ×2 (08:27→17:25)
[2022-04-13] MEDS: FOLIC ACID 1 MG TABLET (FP) PO SCH (09:33)
[2022-04-13] MEDS: METOPROLOL TARTRATE 50 MG TABLET (FP) PO SCH ×2 (09:33→22:30)
[2022-04-13] MEDS: FAMOTIDINE 10 MG TABLET PO SCH (09:33)
[2022-04-13] MEDS: AMMONIUM LACTATE 12% LOTION 225 GM BOTTLE TP SCH (09:34)
[2022-04-13] MEDS: HEPARIN NA (PORCINE) 5,000 UNITS/ML 1ML VIAL SQ SCH ×2 (09:34→22:28)
[2022-04-13] MEDS: ANASTROZOLE 1 MG TABLET PO SCH (09:34)
[2022-04-13] MEDS: POLYETHYLENE GLYCOL (HEALTHYLAX) 3350 17 GM PACKET PO SCH ×2 (09:36→22:28)
[2022-04-13] MEDS: INSULIN (LEVEMIR) 100 UNITS/ML UNITS SQ SCH ×2 (09:37→22:29)
[2022-04-13] MEDS: MULTIVITAMINS (DAILY MVI) TABLET (FP) PO SCH (09:39)
[2022-04-14] MEDS: guaiFENesin/D-M SUGAR-FREE/ACLHOL-FREE 118 ML BOTTLE PO PRN ×3 (00:13→23:13)
[2022-04-14] MEDS: NYSTATIN POWDER 100,000 UNITS/GM - 15 GM TOPICAL POWDER TP SCH ×3 (06:17→21:43)
[2022-04-14] MEDS: INSULIN SLIDING SCALE (NOVOLOG) 1 VIAL SQ SCH ×4 (06:17→21:42)
[2022-04-14] MEDS: LEVOTHYROXINE NA 50 MCG TABLET (FP) PO SCH (06:17)
[2022-04-14 08:11] LABS: CALCIUM 8.6 mg/dL (8.5-10.1)
[2022-04-14 08:12] LABS: ALBUMIN 2.2 g/dl (3.4-5.0); BLOOD UREA NITROGEN 19.7 mg/dL (7-18)
[2022-04-14 08:15] LABS: CREATININE 0.9 mg/dL (0.55-1.3)
[2022-04-14] MEDS: AMINO ACIDS/PROTEIN HYDROLYS 30 ML LIQUID.PKT PO SCH ×2 (08:16→18:16)
[2022-04-14] MEDS: FERROUS SO4 325 MG TABLET (FP) PO SCH (08:16)
[2022-04-14 08:17] LABS: BILIRUBIN,TOTAL 0.6 mg/dL (0.2-1)
[2022-04-14] MEDS: ALBUTEROL SO4 2.5/IPRATROPIUM 0.5 INH SOL 3 ML VIAL.NEB. NEB SCH ×4 (08:21→20:18)
[2022-04-14] MEDS: ANASTROZOLE 1 MG TABLET PO SCH (09:03)
[2022-04-14] MEDS: FOLIC ACID 1 MG TABLET (FP) PO SCH (09:05)
[2022-04-14] MEDS: METOPROLOL TARTRATE 50 MG TABLET (FP) PO SCH ×2 (09:05→21:43)
[2022-04-14] MEDS: HEPARIN NA (PORCINE) 5,000 UNITS/ML 1ML VIAL SQ SCH ×2 (09:06→21:43)
[2022-04-14] MEDS: INSULIN (LEVEMIR) 100 UNITS/ML UNITS SQ SCH ×2 (09:07→21:39)
[2022-04-14] MEDS: MULTIVITAMINS (DAILY MVI) TABLET (FP) PO SCH (09:07)
[2022-04-14] MEDS: FAMOTIDINE 10 MG TABLET PO SCH (09:07)
[2022-04-14] MEDS: AMMONIUM LACTATE 12% LOTION 225 GM BOTTLE TP SCH (09:07)
[2022-04-14] MEDS: POLYETHYLENE GLYCOL (HEALTHYLAX) 3350 17 GM PACKET PO SCH ×2 (09:08→21:38)
[2022-04-15] MEDS: NYSTATIN POWDER 100,000 UNITS/GM - 15 GM TOPICAL POWDER TP SCH ×3 (06:08→21:42)
[2022-04-15] MEDS: guaiFENesin/D-M SUGAR-FREE/ACLHOL-FREE 118 ML BOTTLE PO PRN ×2 (06:18→23:32)
[2022-04-15] MEDS: LEVOTHYROXINE NA 50 MCG TABLET (FP) PO SCH (06:19)
[2022-04-15] MEDS: INSULIN SLIDING SCALE (NOVOLOG) 1 VIAL SQ SCH ×4 (06:20→21:42)
[2022-04-15] MEDS: AMINO ACIDS/PROTEIN HYDROLYS 30 ML LIQUID.PKT PO SCH ×2 (08:03→17:28)
[2022-04-15] MEDS: FERROUS SO4 325 MG TABLET (FP) PO SCH (08:03)
[2022-04-15] MEDS: ALBUTEROL SO4 2.5/IPRATROPIUM 0.5 INH SOL 3 ML VIAL.NEB. NEB SCH ×4 (08:10→20:29)
[2022-04-15 08:20] LABS: WHITE BLOOD COUNT 10.3 K/mm3 (4.0-10.0)
[2022-04-15 08:21] LABS: BASO % 0.5 % (0-2.0); EOS % 2.4 % (0-4.5); HEMATOCRIT 30.3 % (32.4-45.2); HEMOGLOBIN 10.1 GM/dL (10.7-15.3); MCH 26.6 pg (25.7-33.7); MCHC 33.3 g/dl (32.0-36.0); MEAN PLT VOLUME 7.7 fl (7.5-11.1); MONO % 6.5 % (3.8-10.2); NEUT % 73.6 % (42.8-82.8); PLATELET COUNT 241 10^3/uL (134-434); RBC 3.79 M/mm3 (3.60-5.2); RDW 18.4 % (11.6-15.6)
[2022-04-15] MEDS: MULTIVITAMINS (DAILY MVI) TABLET (FP) PO SCH (10:18)
[2022-04-15] MEDS: METOPROLOL TARTRATE 50 MG TABLET (FP) PO SCH ×2 (10:18→21:42)
[2022-04-15] MEDS: ANASTROZOLE 1 MG TABLET PO SCH (10:18)
[2022-04-15] MEDS: INSULIN (LEVEMIR) 100 UNITS/ML UNITS SQ SCH ×2 (10:18→21:42)
[2022-04-15] MEDS: FAMOTIDINE 10 MG TABLET PO SCH (10:18)
[2022-04-15] MEDS: HEPARIN NA (PORCINE) 5,000 UNITS/ML 1ML VIAL SQ SCH ×2 (10:19→21:42)
[2022-04-15] MEDS: AMMONIUM LACTATE 12% LOTION 225 GM BOTTLE TP SCH (10:19)
[2022-04-15] MEDS: FOLIC ACID 1 MG TABLET (FP) PO SCH (10:19)
[2022-04-15] MEDS: NYSTATIN 100000 UNIT/GM TOPICAL OINTMENT 15 GM TUBE TP SCH ×2 (17:01→21:42)
[2022-04-15] MEDS ORDERED: ZINC OXIDE/PANTHENOL/VITAMIN E 56 GM TUBE TP PRN (23:36)
[2022-04-16] MEDS: LEVOTHYROXINE NA 50 MCG TABLET (FP) PO SCH (06:10)
[2022-04-16] MEDS: guaiFENesin/D-M SUGAR-FREE/ACLHOL-FREE 118 ML BOTTLE PO PRN ×2 (06:10→12:17)
[2022-04-16] MEDS: INSULIN (LEVEMIR) 100 UNITS/ML UNITS SQ SCH ×2 (06:10→21:13)
[2022-04-16] MEDS: INSULIN SLIDING SCALE (NOVOLOG) 1 VIAL SQ SCH ×4 (06:10→21:16)
[2022-04-16] MEDS: NYSTATIN POWDER 100,000 UNITS/GM - 15 GM TOPICAL POWDER TP SCH ×3 (06:10→21:11)
[2022-04-16] MEDS: ALBUTEROL SO4 2.5/IPRATROPIUM 0.5 INH SOL 3 ML VIAL.NEB. NEB SCH ×4 (07:45→20:35)
[2022-04-16] MEDS: FERROUS SO4 325 MG TABLET (FP) PO SCH (08:08)
[2022-04-16] MEDS: AMINO ACIDS/PROTEIN HYDROLYS 30 ML LIQUID.PKT PO SCH ×2 (08:08→17:04)
[2022-04-16] MEDS ORDERED: FLUCONAZOLE 100 MG TABLET (UD) PO ONE (08:45)
[2022-04-16 09:56] LABS: BASO % 1.2 % (0-2.0); EOS % 1.8 % (0-4.5); HEMATOCRIT 31.6 % (32.4-45.2); HEMOGLOBIN 10.6 GM/dL (10.7-15.3); LYMPH % 19.1 % (8-40); MCH 26.8 pg (25.7-33.7); MCHC 33.5 g/dl (32.0-36.0); MEAN CELL VOLUME 79.9 fl (80-96); MEAN PLT VOLUME 7.9 fl (7.5-11.1); MONO % 6.7 % (3.8-10.2); NEUT % 71.2 % (42.8-82.8); PLATELET COUNT 301 10^3/uL (134-434); RBC 3.95 M/mm3 (3.60-5.2); RDW 18.7 % (11.6-15.6)
[2022-04-16 10:00] LABS: CALCIUM 8.6 mg/dL (8.5-10.1)
[2022-04-16 10:01] LABS: ALBUMIN 2.3 g/dl (3.4-5.0); BLOOD UREA NITROGEN 28.2 mg/dL (7-18)
[2022-04-16 10:04] LABS: CREATININE 0.9 mg/dL (0.55-1.3)
[2022-04-16 10:05] LABS: BILIRUBIN,TOTAL 0.4 mg/dL (0.2-1)
[2022-04-16] MEDS: AMMONIUM LACTATE 12% LOTION 225 GM BOTTLE TP SCH (11:13)
[2022-04-16] MEDS: CLOTRIMAZOLE/BETAMET DIPROP 15 GM TUBE TP SCH ×2 (11:13→21:11)
[2022-04-16] MEDS: FAMOTIDINE 10 MG TABLET PO SCH (11:15)
[2022-04-16] MEDS: HEPARIN NA (PORCINE) 5,000 UNITS/ML 1ML VIAL SQ SCH ×2 (11:15→21:11)
[2022-04-16] MEDS: FOLIC ACID 1 MG TABLET (FP) PO SCH (11:15)
[2022-04-16] MEDS: MULTIVITAMINS (DAILY MVI) TABLET (FP) PO SCH (11:15)
[2022-04-16] MEDS: METOPROLOL TARTRATE 50 MG TABLET (FP) PO SCH ×2 (11:15→21:10)
[2022-04-16] MEDS: ANASTROZOLE 1 MG TABLET PO SCH (12:17)
[2022-04-16] MEDS: metroNIDAZOLE 250 MG TABLET PO SCH ×2 (15:09→21:10)
[2022-04-17] MEDS: guaiFENesin/D-M SUGAR-FREE/ACLHOL-FREE 118 ML BOTTLE PO PRN ×3 (02:17→21:48)
[2022-04-17] MEDS: NYSTATIN POWDER 100,000 UNITS/GM - 15 GM TOPICAL POWDER TP SCH ×3 (06:03→21:48)
[2022-04-17] MEDS: metroNIDAZOLE 250 MG TABLET PO SCH (06:03)
[2022-04-17] MEDS: INSULIN (LEVEMIR) 100 UNITS/ML UNITS SQ SCH ×2 (06:03→21:33)
[2022-04-17] MEDS: INSULIN SLIDING SCALE (NOVOLOG) 1 VIAL SQ SCH ×4 (06:09→21:35)
[2022-04-17] MEDS: LEVOTHYROXINE NA 50 MCG TABLET (FP) PO SCH (06:11)
[2022-04-17] MEDS: AMINO ACIDS/PROTEIN HYDROLYS 30 ML LIQUID.PKT PO SCH ×2 (08:19→17:29)
[2022-04-17] MEDS: FERROUS SO4 325 MG TABLET (FP) PO SCH (08:19)
[2022-04-17] MEDS: ALBUTEROL SO4 2.5/IPRATROPIUM 0.5 INH SOL 3 ML VIAL.NEB. NEB SCH ×4 (08:46→20:04)
[2022-04-17 08:58] LABS: BASO % 0.5 % (0-2.0); EOS % 1.2 % (0-4.5); HEMATOCRIT 31.9 % (32.4-45.2); HEMOGLOBIN 10.5 GM/dL (10.7-15.3); LYMPH % 14.7 % (8-40); MCH 26.5 pg (25.7-33.7); MCHC 32.8 g/dl (32.0-36.0); MEAN CELL VOLUME 80.9 fl (80-96); MONO % 5.5 % (3.8-10.2); NEUT % 78.1 % (42.8-82.8); PLATELET COUNT 325 10^3/uL (134-434); RBC 3.94 M/mm3 (3.60-5.2); WHITE BLOOD COUNT 13.5 K/mm3 (4.0-10.0)
[2022-04-17] MEDS: ANASTROZOLE 1 MG TABLET PO SCH (12:30)
[2022-04-17] MEDS: VANCOMYCIN 250 MG/5 ML ORAL SOLUTION PO SCH ×3 (12:31→23:01)
[2022-04-17] MEDS: METOPROLOL TARTRATE 50 MG TABLET (FP) PO SCH ×2 (12:31→21:32)
[2022-04-17] MEDS: FOLIC ACID 1 MG TABLET (FP) PO SCH (12:31)
[2022-04-17] MEDS: MULTIVITAMINS (DAILY MVI) TABLET (FP) PO SCH (12:31)
[2022-04-17] MEDS: HEPARIN NA (PORCINE) 5,000 UNITS/ML 1ML VIAL SQ SCH ×2 (12:32→21:22)
[2022-04-17] MEDS: FAMOTIDINE 10 MG TABLET PO SCH (12:32)
[2022-04-17] MEDS: CLOTRIMAZOLE/BETAMET DIPROP 15 GM TUBE TP SCH ×2 (12:33→21:24)
[2022-04-17] MEDS: AMMONIUM LACTATE 12% LOTION 225 GM BOTTLE TP SCH (12:33)
[2022-04-18 00:13] VITALS: RESP 20
[2022-04-18 04:20] VITALS: BP 146/67; PULSE 92; TEMP 98.3
== END 2022-04-18 06:01 | DRG 871 ==
LOC: JER 15:32 → JERBED 18:00 → J4S 04-07 12:19
PROVIDERS: ADMIT Internal Medicine; ATTEND Family Medicine
DX: A41.9 Sepsis, unspecified organism (principal); J18.9 Pneumonia, unspecified organism; J96.01 Acute respiratory failure with hypoxia; N17.9 Acute kidney failure, unspecified; N39.0 Urinary tract infection, site not specified; I50.32 Chronic diastolic (congestive) heart failure; A04.72 Enterocolitis due to Clostridium difficile, not specified as recurrent; E78.5 Hyperlipidemia, unspecified; I25.10 Atherosclerotic heart disease of native coronary artery without angina pectoris; Z79.4 Long term (current) use of insulin; E86.0 Dehydration; I87.2 Venous insufficiency (chronic) (peripheral); I11.0 Hypertensive heart disease with heart failure; N20.0 Calculus of kidney; E11.65 Type 2 diabetes mellitus with hyperglycemia; E66.9 Obesity, unspecified; Z68.32 Body mass index [BMI] 32.0-32.9, adult; R79.89 Other specified abnormal findings of blood chemistry; E87.5 Hyperkalemia; E11.40 Type 2 diabetes mellitus with diabetic neuropathy, unspecified; R21 Rash and other nonspecific skin eruption; Z85.42 Personal history of malignant neoplasm of other parts of uterus; Z85.3 Personal history of malignant neoplasm of breast
CPT/HCPCS: 0241U-QW; 36415; 71045-TC-FY; 71250-TC; 74176-TC; 80048; 80053; 80061; 81003; 82272; 82436; 82553; 82570; 82803; 82962; 83036; 83540; 83550; 83605; 83735; 83880; 84100; 84133; 84300; 84484; 85025; 85027; 85379; 85610; 85730; 86850; 86900; 86901; 87040; 87086; 87186; 87324; 87449; 87899; 93005; 93010; 93306-TC; 93971-TC; 94640; 97161-GP; 99285-25; C9803-CS; J1644; J1756; U0003; U0005

== ENCOUNTER 2022-04-27 16:55 | Inpatient (IN) | payer OTHER ==
[2022-04-27] MEDS ORDERED: PIPERACILLIN/TAZOB 4.5 GM 4.5 GM in DEXTROSE 5%-WATER 100 ML IVPB ONE (20:45)
[2022-04-27] MEDS ORDERED: SODIUM CHLORIDE 0.9% 500 ML INFUS.BAG IV ONE (20:55)
[2022-04-27 21:23] LABS: VENOUS O2 SATURATION 36.2 % (70-80); VENOUS PCO2 34.3 mmHg (38-52); VENOUS PH 7.317 (7.310-7.410)
[2022-04-27 21:28] LABS: BASO % 0.2 % (0-2.0); EOS % 0.1 % (0-4.5); MCH 26.5 pg (25.7-33.7); MCHC 32.4 g/dl (32.0-36.0); MEAN PLT VOLUME 6.9 fl (7.5-11.1); MONO % 4.5 % (3.8-10.2); NEUT % 86.2 % (42.8-82.8); PLATELET COUNT 335 10^3/uL (134-434); RBC 4.15 M/mm3 (3.60-5.2); RDW 19.1 % (11.6-15.6); WHITE BLOOD COUNT 22.6 K/mm3 (4.0-10.0)
[2022-04-27 21:43] LABS: CHLORIDE 100 mmol/L (98-107); SODIUM 135 mmol/L (136-145)
[2022-04-27] MEDS ORDERED: VANCOMYCIN 1 GM in D5W (PRE-DOCKED) 1,000 MG/250 ML IVPB ONE (21:43)
[2022-04-27] MEDS ORDERED: PIPERACILLIN/TAZOB 4.5 GM 4.5 GM/100 ML BAG IVPB ONE (21:44)
[2022-04-27] MEDS ORDERED: VANCOMYCIN/WATER FOR INJ (PEG) 1,000 MG/200 ML BAG IVPB ONE (21:44)
[2022-04-27 21:45] LABS: ALBUMIN 2.2 g/dl (3.4-5.0); ANION GAP 17 MMOL/L (8-16); BLOOD UREA NITROGEN 37.6 mg/dL (7-18); CALCIUM 9.1 mg/dL (8.5-10.1); CO2 17 mmol/L (21-32); GLUCOSE,RANDOM 269 mg/dL (74-106); MAGNESIUM 2.2 mg/dL (1.8-2.4)
[2022-04-27 21:46] LABS: INR 1.24 (0.83-1.09); PROTHROMBIN TIME (PATIENT) 14.3 SEC (9.7-13.0)
[2022-04-27 21:48] LABS: CREATININE 1.1 mg/dL (0.55-1.3); SGOT/AST 15 U/L (15-37)
[2022-04-27 21:49] LABS: SGPT/ALT 14 U/L (13-61)
[2022-04-27 21:50] LABS: BILIRUBIN,TOTAL 0.6 mg/dL (0.2-1); TOT PROT 6.5 g/dl (6.4-8.2)
[2022-04-27 21:51] LABS: ALK PHOS 106 U/L (45-117)
[2022-04-27 22:45] LABS: ANISOCYTOSIS 0; MACROCYTOSIS 0; PLATELET ESTIMATE NORMAL
[2022-04-27] MEDS ORDERED: morphine SULFATE 4 MG/ML VIAL IVPUSH ONE (23:11)
[2022-04-27 23:18] LABS: EPI CELLS 20 /uL (0-25.1); HYALINE CASTS 1 /uL (0-3.1); URINE APPEARANCE TURBID; URINE BACTERIA 159 /uL (0-1359); URINE BILIRUBIN NEGATIVE (NEGATIVE); URINE COLOR DK YELLOW; URINE GLUCOSE (UA) NEGATIVE (NEGATIVE); URINE KETONE TRACE (NEGATIVE); URINE LEUK ESTERASE 3+ (NEGATIVE); URINE NITRITE NEGATIVE (NEGATIVE); URINE PROTEIN 1+ (NEGATIVE); URINE RBC 7 /uL (0-23.9); URINE UROBILINOGEN 0.2 mg/dL (0.2-1.0); URINE WBC 8016 /uL (0-25.8)
[2022-04-28] MEDS ORDERED: SODIUM CHLORIDE 1,000 ML IV SCH (08:00)
[2022-04-28] MEDS ORDERED: VANCOMYCIN/WATER FOR INJ (PEG) 1,000 MG/200 ML BAG IVPB SCH (08:30)
[2022-04-28] MEDS ORDERED: LEVOTHYROXINE NA 50 MCG TABLET (FP) ONE (09:15)
[2022-04-28] MEDS ORDERED: PIPERACILLIN/TAZOB 4.5 GM 4.5 GM/100 ML BAG IVPB ONE ×2 (09:15→14:16)
[2022-04-28] MEDS ORDERED: VANCOMYCIN/WATER FOR INJ (PEG) 1,000 MG/200 ML BAG IVPB ONE (09:16)
[2022-04-28] MEDS ORDERED: HEPARIN NA (PORCINE) 5,000 UNITS/ML 1ML VIAL ONE (09:23)
[2022-04-28] MEDS: HEPARIN NA (PORCINE) 5,000 UNITS/ML 1ML VIAL SQ SCH (09:25)
[2022-04-28] MEDS: PIPERACILLIN/TAZOB 4.5 GM 4.5 GM in DEXTROSE 5%-WATER 100 ML IVPB SCH ×4 (09:25→16:41)
[2022-04-28] MEDS: ANASTROZOLE 1 MG TABLET PO SCH (09:43)
[2022-04-28] MEDS: LEVOTHYROXINE NA 50 MCG TABLET (FP) PO SCH (09:43)
[2022-04-28 09:54] LABS: BASO % 0.2 % (0-2.0); EOS % 0.2 % (0-4.5); HEMATOCRIT 33.4 % (32.4-45.2); HEMOGLOBIN 10.9 GM/dL (10.7-15.3); LYMPH % 11.6 % (8-40); MCH 26.9 pg (25.7-33.7); MCHC 32.8 g/dl (32.0-36.0); MEAN PLT VOLUME 6.8 fl (7.5-11.1); MONO % 5.2 % (3.8-10.2); NEUT % 82.8 % (42.8-82.8); PLATELET COUNT 309 10^3/uL (134-434); RBC 4.07 M/mm3 (3.60-5.2); WHITE BLOOD COUNT 19.9 K/mm3 (4.0-10.0)
[2022-04-28] MEDS ORDERED: VANCOMYCIN 1,000 MG in DEXTROSE 5%-WATER - 250 ML IVPB SCH (10:00)
[2022-04-28 10:33] LABS: ALBUMIN 2.1 g/dl (3.4-5.0); BLOOD UREA NITROGEN 28.8 mg/dL (7-18)
[2022-04-28 10:37] LABS: BILIRUBIN,TOTAL 0.6 mg/dL (0.2-1); TOT PROT 6.2 g/dl (6.4-8.2)
[2022-04-28] MEDS ORDERED: POTASSIUM CHLORIDE TABS 20 MEQ TABLET.ER (FP) PO ONE (16:20)
[2022-04-28] MEDS ORDERED: MEROPENEM 1 GM VIAL (RESTRICTED TO ID) IVPB ONE (18:00)
[2022-04-28] MEDS: MEROPENEM 1 GM in DEXTROSE 5%-WATER 100 ML IVPB SCH (18:08)
[2022-04-29] MEDS: HEPARIN NA (PORCINE) 5,000 UNITS/ML 1ML VIAL SQ SCH ×2 (05:57→10:02)
[2022-04-29] MEDS: NYSTATIN POWDER 100,000 UNITS/GM - 15 GM TOPICAL POWDER TP SCH ×2 (05:57→12:04)
[2022-04-29] MEDS ORDERED: MEROPENEM 1 GM VIAL (RESTRICTED TO ID) IVPB ONE ×2 (05:59→09:48)
[2022-04-29] MEDS: MEROPENEM 1 GM in DEXTROSE 5%-WATER 100 ML IVPB SCH ×2 (06:21→10:02)
[2022-04-29] MEDS ORDERED: BACITRACIN 0.9 GM PACKET ONE (09:48)
[2022-04-29] MEDS ORDERED: LEVOTHYROXINE NA 50 MCG TABLET (FP) ONE (09:48)
[2022-04-29] MEDS ORDERED: HEPARIN NA (PORCINE) 5,000 UNITS/ML 1ML VIAL ONE (09:49)
[2022-04-29] MEDS ORDERED: BACITRACIN ZINC 15 GM TUBE TOPICAL OINTMENT TP SCH (10:00)
[2022-04-29] MEDS: ANASTROZOLE 1 MG TABLET PO SCH (10:01)
[2022-04-29] MEDS: LEVOTHYROXINE NA 50 MCG TABLET (FP) PO SCH (10:01)
[2022-04-29] MEDS: VANCOMYCIN/WATER 1250 MG 1,250 MG/250 ML BAG IVPB SCH (13:26)
[2022-04-29 14:15] VITALS: BMI 31.1
[2022-04-29] MEDS ORDERED: PIPERACILLIN/TAZOB 3.375 GM 3.375 GM/50 ML BAG IVPB ONE (17:50)
[2022-04-29] MEDS: PIPERACILLIN/TAZOB 3.375 GM 3.375 GM in DEXTROSE 5%-WATER - 50 ML IVPB SCH (18:01)
[2022-04-29] MEDS: POTASSIUM CHLORIDE 10 MEQ in SODIUM CHLORIDE 0.45% 1,000 ML IVPB SCH (18:01)
[2022-04-30] MEDS: HEPARIN NA (PORCINE) 5,000 UNITS/ML 1ML VIAL SQ SCH ×3 (02:00→23:32)
[2022-04-30] MEDS ORDERED: PIPERACILLIN/TAZOB 3.375 GM 3.375 GM/50 ML BAG IVPB ONE (02:02)
[2022-04-30] MEDS: PIPERACILLIN/TAZOB 3.375 GM 3.375 GM in DEXTROSE 5%-WATER - 50 ML IVPB SCH ×3 (02:35→17:31)
[2022-04-30] MEDS: NYSTATIN POWDER 100,000 UNITS/GM - 15 GM TOPICAL POWDER TP SCH ×3 (02:43→23:31)
[2022-04-30] MEDS: POTASSIUM CHLORIDE 10 MEQ in SODIUM CHLORIDE 0.45% 1,000 ML IVPB SCH ×4 (03:26→23:47)
[2022-04-30] MEDS ORDERED: ACETAMINOPHEN 1000 MG/100 ML BAG IVPB ONE (03:39)
[2022-04-30] MEDS ORDERED: SODIUM CHLORIDE 250 ML IV STA (05:25)
[2022-04-30] MEDS: LEVOTHYROXINE NA 50 MCG TABLET (FP) PO SCH (08:08)
[2022-04-30] MEDS: BACITRACIN ZINC 15 GM TUBE TOPICAL OINTMENT TP SCH (09:30)
[2022-04-30 10:30] LABS: BASO % 0.4 % (0-2.0); EOS % 0.6 % (0-4.5); HEMATOCRIT 30.4 % (32.4-45.2); LYMPH % 16.9 % (8-40); MCH 26.8 pg (25.7-33.7); MCHC 32.9 g/dl (32.0-36.0); MEAN CELL VOLUME 81.5 fl (80-96); MEAN PLT VOLUME 7.2 fl (7.5-11.1); MONO % 4.1 % (3.8-10.2); PLATELET COUNT 309 10^3/uL (134-434); RBC 3.73 M/mm3 (3.60-5.2); RDW 18.8 % (11.6-15.6)
[2022-04-30 10:34] LABS: ALBUMIN 1.8 g/dl (3.4-5.0); BLOOD UREA NITROGEN 28.8 mg/dL (7-18); CALCIUM 8.8 mg/dL (8.5-10.1)
[2022-04-30 10:37] LABS: CREATININE 1.3 mg/dL (0.55-1.3)
[2022-04-30 10:39] LABS: BILIRUBIN,TOTAL 0.3 mg/dL (0.2-1); TOT PROT 5.4 g/dl (6.4-8.2)
[2022-04-30] MEDS: ANASTROZOLE 1 MG TABLET PO SCH (11:00)
[2022-04-30] MEDS: INSULIN SLIDING SCALE (NOVOLOG) 1 VIAL SQ SCH ×3 (11:18→23:32)
[2022-04-30] MEDS: VANCOMYCIN/WATER 1250 MG 1,250 MG/250 ML BAG IVPB SCH (13:01)
[2022-04-30] MEDS: AMINO ACIDS/PROTEIN HYDROLYS 30 ML LIQUID.PKT PO SCH (17:26)
[2022-05-01] MEDS: POTASSIUM CHLORIDE 10 MEQ in SODIUM CHLORIDE 0.45% 1,000 ML IVPB SCH ×3 (01:31→21:30)
[2022-05-01] MEDS: PIPERACILLIN/TAZOB 3.375 GM 3.375 GM in DEXTROSE 5%-WATER - 50 ML IVPB SCH ×3 (03:06→17:52)
[2022-05-01] MEDS: INSULIN SLIDING SCALE (NOVOLOG) 1 VIAL SQ SCH ×4 (08:17→22:47)
[2022-05-01] MEDS: LEVOTHYROXINE NA 50 MCG TABLET (FP) PO SCH (08:17)
[2022-05-01] MEDS: MULTIVITAMINS (DAILY MVI) TABLET (FP) PO SCH (10:42)
[2022-05-01] MEDS: HEPARIN NA (PORCINE) 5,000 UNITS/ML 1ML VIAL SQ SCH ×2 (10:42→22:39)
[2022-05-01] MEDS: AMINO ACIDS/PROTEIN HYDROLYS 30 ML LIQUID.PKT PO SCH ×2 (10:42→18:10)
[2022-05-01] MEDS: ASCORBIC ACID 500 MG TABLET (FP) PO SCH (10:42)
[2022-05-01] MEDS: NYSTATIN POWDER 100,000 UNITS/GM - 15 GM TOPICAL POWDER TP SCH ×2 (10:42→22:55)
[2022-05-01] MEDS: ANASTROZOLE 1 MG TABLET PO SCH (10:43)
[2022-05-01] MEDS: BACITRACIN ZINC 15 GM TUBE TOPICAL OINTMENT TP SCH (10:43)
[2022-05-01] MEDS: VANCOMYCIN/WATER 1250 MG 1,250 MG/250 ML BAG IVPB SCH (12:20)
[2022-05-01] MEDS ORDERED: INSULIN (NOVOLOG) ASPART 100 UNITS/ML 10ML VIAL ONE (12:46)
[2022-05-01] MEDS: INSULIN (LEVEMIR) 100 UNITS/ML UNITS SQ SCH (22:46)
[2022-05-02] MEDS: PIPERACILLIN/TAZOB 3.375 GM 3.375 GM in DEXTROSE 5%-WATER - 50 ML IVPB SCH ×3 (03:07→17:28)
[2022-05-02] MEDS: POTASSIUM CHLORIDE 10 MEQ in SODIUM CHLORIDE 0.45% 1,000 ML IVPB SCH ×3 (05:43→15:43)
[2022-05-02] MEDS: LEVOTHYROXINE NA 50 MCG TABLET (FP) PO SCH (07:11)
[2022-05-02] MEDS: INSULIN (LEVEMIR) 100 UNITS/ML UNITS SQ SCH ×2 (07:16→22:21)
[2022-05-02] MEDS: INSULIN SLIDING SCALE (NOVOLOG) 1 VIAL SQ SCH ×4 (07:18→22:28)
[2022-05-02] MEDS: HEPARIN NA (PORCINE) 5,000 UNITS/ML 1ML VIAL SQ SCH ×2 (09:46→22:21)
[2022-05-02] MEDS: AMINO ACIDS/PROTEIN HYDROLYS 30 ML LIQUID.PKT PO SCH ×2 (09:46→16:39)
[2022-05-02] MEDS: ASCORBIC ACID 500 MG TABLET (FP) PO SCH (09:46)
[2022-05-02] MEDS: MULTIVITAMINS (DAILY MVI) TABLET (FP) PO SCH (09:46)
[2022-05-02] MEDS: BACITRACIN ZINC 15 GM TUBE TOPICAL OINTMENT TP SCH (09:47)
[2022-05-02] MEDS: ANASTROZOLE 1 MG TABLET PO SCH (09:47)
[2022-05-02] MEDS: NYSTATIN POWDER 100,000 UNITS/GM - 15 GM TOPICAL POWDER TP SCH ×2 (09:49→22:22)
[2022-05-02 11:09] LABS: CALCIUM 8.2 mg/dL (8.5-10.1)
[2022-05-02 11:10] LABS: ALBUMIN 1.8 g/dl (3.4-5.0); BLOOD UREA NITROGEN 19.9 mg/dL (7-18)
[2022-05-02 11:13] LABS: CREATININE 0.8 mg/dL (0.55-1.3)
[2022-05-02 11:14] LABS: BILIRUBIN,TOTAL 0.4 mg/dL (0.2-1)
[2022-05-02 11:15] LABS: TOT PROT 5.4 g/dl (6.4-8.2)
[2022-05-02] MEDS: VANCOMYCIN/WATER 1250 MG 1,250 MG/250 ML BAG IVPB SCH (15:21)
[2022-05-03] MEDS: POTASSIUM CHLORIDE 10 MEQ in SODIUM CHLORIDE 0.45% 1,000 ML IVPB SCH ×3 (01:56→22:54)
[2022-05-03] MEDS: PIPERACILLIN/TAZOB 3.375 GM 3.375 GM in DEXTROSE 5%-WATER - 50 ML IVPB SCH ×3 (02:23→17:06)
[2022-05-03] MEDS: INSULIN (LEVEMIR) 100 UNITS/ML UNITS SQ SCH ×2 (06:31→22:40)
[2022-05-03] MEDS: LEVOTHYROXINE NA 50 MCG TABLET (FP) PO SCH (06:31)
[2022-05-03] MEDS: INSULIN SLIDING SCALE (NOVOLOG) 1 VIAL SQ SCH ×4 (06:39→22:48)
[2022-05-03] MEDS ORDERED: INSULIN (NOVOLOG) ASPART 100 UNITS/ML 10ML VIAL ONE (06:55)
[2022-05-03 07:42] VITALS: RESP 20
[2022-05-03] MEDS: AMINO ACIDS/PROTEIN HYDROLYS 30 ML LIQUID.PKT PO SCH ×2 (08:57→16:29)
[2022-05-03] MEDS: HEPARIN NA (PORCINE) 5,000 UNITS/ML 1ML VIAL SQ SCH ×2 (09:11→22:40)
[2022-05-03] MEDS: BACITRACIN ZINC 15 GM TUBE TOPICAL OINTMENT TP SCH (09:11)
[2022-05-03] MEDS: ANASTROZOLE 1 MG TABLET PO SCH (09:11)
[2022-05-03] MEDS: MULTIVITAMINS (DAILY MVI) TABLET (FP) PO SCH (09:11)
[2022-05-03] MEDS: ASCORBIC ACID 500 MG TABLET (FP) PO SCH (09:11)
[2022-05-03] MEDS: NYSTATIN POWDER 100,000 UNITS/GM - 15 GM TOPICAL POWDER TP SCH ×2 (09:11→22:54)
[2022-05-03] MEDS: VANCOMYCIN/WATER 1250 MG 1,250 MG/250 ML BAG IVPB SCH (13:56)
[2022-05-03] MEDS: VANCOMYCIN/WATER FOR INJ (PEG) 1,000 MG/200 ML BAG IVPB SCH (14:21)
[2022-05-03] MEDS: MINERAL OIL/PET HY-PHL TOPICAL OINTMENT 454 GM JAR TP SCH (22:54)
[2022-05-04] MEDS: POTASSIUM CHLORIDE 10 MEQ in SODIUM CHLORIDE 0.45% 1,000 ML IVPB SCH ×4 (01:26→17:23)
[2022-05-04] MEDS: PIPERACILLIN/TAZOB 3.375 GM 3.375 GM in DEXTROSE 5%-WATER - 50 ML IVPB SCH ×3 (02:04→17:23)
[2022-05-04] MEDS ORDERED: INSULIN (NOVOLOG) ASPART 100 UNITS/ML 10ML VIAL ONE ×4 (05:59→23:11)
[2022-05-04] MEDS: MINERAL OIL/PET HY-PHL TOPICAL OINTMENT 454 GM JAR TP SCH ×3 (06:51→23:39)
[2022-05-04] MEDS: LEVOTHYROXINE NA 50 MCG TABLET (FP) PO SCH (06:52)
[2022-05-04] MEDS: INSULIN (LEVEMIR) 100 UNITS/ML UNITS SQ SCH ×2 (06:52→23:40)
[2022-05-04] MEDS: INSULIN SLIDING SCALE (NOVOLOG) 1 VIAL SQ SCH ×4 (07:08→23:41)
[2022-05-04] MEDS: AMINO ACIDS/PROTEIN HYDROLYS 30 ML LIQUID.PKT PO SCH ×2 (09:38→17:23)
[2022-05-04] MEDS: ANASTROZOLE 1 MG TABLET PO SCH (10:02)
[2022-05-04] MEDS: BACITRACIN ZINC 15 GM TUBE TOPICAL OINTMENT TP SCH (10:02)
[2022-05-04] MEDS: NYSTATIN POWDER 100,000 UNITS/GM - 15 GM TOPICAL POWDER TP SCH ×2 (10:02→23:41)
[2022-05-04] MEDS: MULTIVITAMINS (DAILY MVI) TABLET (FP) PO SCH (10:03)
[2022-05-04] MEDS: ASCORBIC ACID 500 MG TABLET (FP) PO SCH (10:03)
[2022-05-04] MEDS: HEPARIN NA (PORCINE) 5,000 UNITS/ML 1ML VIAL SQ SCH ×2 (10:03→23:34)
[2022-05-04 10:44] LABS: ALBUMIN 1.8 g/dl (3.4-5.0); CALCIUM 8.2 mg/dL (8.5-10.1)
[2022-05-04 10:45] LABS: BLOOD UREA NITROGEN 13.7 mg/dL (7-18)
[2022-05-04 10:48] LABS: CREATININE 0.6 mg/dL (0.55-1.3)
[2022-05-04 10:49] LABS: BILIRUBIN,TOTAL 0.4 mg/dL (0.2-1)
[2022-05-04 11:54] LABS: BASO % 0.9 % (0-2.0); HEMATOCRIT 31.6 % (32.4-45.2); HEMOGLOBIN 10.4 GM/dL (10.7-15.3); LYMPH % 29.5 % (8-40); MCH 26.7 pg (25.7-33.7); MCHC 32.9 g/dl (32.0-36.0); MEAN CELL VOLUME 81.2 fl (80-96); MEAN PLT VOLUME 7.4 fl (7.5-11.1); MONO % 5.5 % (3.8-10.2); NEUT % 62.1 % (42.8-82.8); PLATELET COUNT 233 10^3/uL (134-434); RDW 18.7 % (11.6-15.6); WHITE BLOOD COUNT 5.2 K/mm3 (4.0-10.0)
[2022-05-04] MEDS: VANCOMYCIN/WATER FOR INJ (PEG) 1,000 MG/200 ML BAG IVPB SCH (14:50)
[2022-05-05] MEDS: PIPERACILLIN/TAZOB 3.375 GM 3.375 GM in DEXTROSE 5%-WATER - 50 ML IVPB SCH ×3 (03:01→17:24)
[2022-05-05] MEDS: POTASSIUM CHLORIDE 10 MEQ in SODIUM CHLORIDE 0.45% 1,000 ML IVPB SCH ×2 (03:46→15:24)
[2022-05-05] MEDS: LEVOTHYROXINE NA 50 MCG TABLET (FP) PO SCH (06:45)
[2022-05-05] MEDS: MINERAL OIL/PET HY-PHL TOPICAL OINTMENT 454 GM JAR TP SCH ×3 (06:50→21:42)
[2022-05-05] MEDS: INSULIN (LEVEMIR) 100 UNITS/ML UNITS SQ SCH ×2 (06:51→21:49)
[2022-05-05] MEDS: INSULIN SLIDING SCALE (NOVOLOG) 1 VIAL SQ SCH ×4 (06:51→21:47)
[2022-05-05] MEDS: NYSTATIN POWDER 100,000 UNITS/GM - 15 GM TOPICAL POWDER TP SCH ×2 (09:36→21:44)
[2022-05-05] MEDS: ANASTROZOLE 1 MG TABLET PO SCH (09:36)
[2022-05-05] MEDS: AMINO ACIDS/PROTEIN HYDROLYS 30 ML LIQUID.PKT PO SCH ×2 (09:36→17:25)
[2022-05-05] MEDS: ASCORBIC ACID 500 MG TABLET (FP) PO SCH (09:36)
[2022-05-05] MEDS: MULTIVITAMINS (DAILY MVI) TABLET (FP) PO SCH (09:36)
[2022-05-05] MEDS: HEPARIN NA (PORCINE) 5,000 UNITS/ML 1ML VIAL SQ SCH ×2 (09:37→21:40)
[2022-05-05] MEDS: BACITRACIN ZINC 15 GM TUBE TOPICAL OINTMENT TP SCH (09:37)
[2022-05-05] MEDS: VANCOMYCIN/WATER FOR INJ (PEG) 1,000 MG/200 ML BAG IVPB SCH (13:42)
[2022-05-06] MEDS: POTASSIUM CHLORIDE 10 MEQ in SODIUM CHLORIDE 0.45% 1,000 ML IVPB SCH ×2 (01:51→09:35)
[2022-05-06] MEDS ORDERED: PIPERACILLIN/TAZOBACTAM 3.375 GM VIAL IVPB ONE (02:01)
[2022-05-06] MEDS: PIPERACILLIN/TAZOB 3.375 GM 3.375 GM in DEXTROSE 5%-WATER - 50 ML IVPB SCH ×2 (02:11→09:11)
[2022-05-06] MEDS: MINERAL OIL/PET HY-PHL TOPICAL OINTMENT 454 GM JAR TP SCH ×2 (06:02→14:33)
[2022-05-06] MEDS: INSULIN (LEVEMIR) 100 UNITS/ML UNITS SQ SCH (06:03)
[2022-05-06] MEDS: INSULIN SLIDING SCALE (NOVOLOG) 1 VIAL SQ SCH ×2 (06:04→14:32)
[2022-05-06] MEDS: LEVOTHYROXINE NA 50 MCG TABLET (FP) PO SCH (06:05)
[2022-05-06] MEDS: MULTIVITAMINS (DAILY MVI) TABLET (FP) PO SCH (09:10)
[2022-05-06] MEDS: ASCORBIC ACID 500 MG TABLET (FP) PO SCH (09:10)
[2022-05-06] MEDS: HEPARIN NA (PORCINE) 5,000 UNITS/ML 1ML VIAL SQ SCH (09:10)
[2022-05-06] MEDS: NYSTATIN POWDER 100,000 UNITS/GM - 15 GM TOPICAL POWDER TP SCH (09:11)
[2022-05-06] MEDS: AMINO ACIDS/PROTEIN HYDROLYS 30 ML LIQUID.PKT PO SCH (09:12)
[2022-05-06] MEDS: ANASTROZOLE 1 MG TABLET PO SCH (09:13)
[2022-05-06] MEDS ORDERED: VANCOMYCIN 250 MG/5 ML ORAL SOLUTION PO SCH (12:00)
[2022-05-06] MEDS: BACITRACIN ZINC 15 GM TUBE TOPICAL OINTMENT TP SCH (14:32)
[2022-05-06 14:56] VITALS: BP 126/67; PULSE 101; TEMP 98.9
[2022-05-06] MEDS ORDERED: DOXYCYCLINE HYCLATE 100 MG CAPSULE PO SCH (18:00)
== END 2022-05-06 15:40 | DRG 872 ==
LOC: JER 16:55 → JERBED 23:27 → J8W 04-30 05:07
PROVIDERS: ADMIT Internal Medicine; ATTEND Family Medicine
DX: A41.9 Sepsis, unspecified organism (principal); N39.0 Urinary tract infection, site not specified; E87.1 Hypo-osmolality and hyponatremia; Z16.24 Resistance to multiple antibiotics; I50.32 Chronic diastolic (congestive) heart failure; I25.10 Atherosclerotic heart disease of native coronary artery without angina pectoris; I10 Essential (primary) hypertension; E78.5 Hyperlipidemia, unspecified; J45.909 Unspecified asthma, uncomplicated; F03.90 Unspecified dementia, unspecified severity, without behavioral disturbance, psychotic disturbance, mood disturbance, and anxiety; E87.6 Hypokalemia; Z79.4 Long term (current) use of insulin; E11.40 Type 2 diabetes mellitus with diabetic neuropathy, unspecified; I11.0 Hypertensive heart disease with heart failure; E03.9 Hypothyroidism, unspecified; K11.20 Sialoadenitis, unspecified; E11.65 Type 2 diabetes mellitus with hyperglycemia; L89.322 Pressure ulcer of left buttock, stage 2; L89.312 Pressure ulcer of right buttock, stage 2; Z85.3 Personal history of malignant neoplasm of breast; Z85.42 Personal history of malignant neoplasm of other parts of uterus
CPT/HCPCS: 0241U-QW; 36415; 70450-TC; 71045-TC-FY; 80053; 81003; 82550; 82553; 82803; 82962; 83036; 83605; 83735; 84484; 85025; 85610; 85730; 86850; 86900; 86901; 87040; 87077; 87086; 87186; 93005; 93010; 97116-GP; 97161-GP; 99291; 99292; C9803-CS; G0480; J1644; U0003; U0005

== ENCOUNTER 2022-06-13 10:14 | Inpatient (IN) | payer OTHER ==
[2022-06-13] MEDS ORDERED: PIPERACILLIN/TAZOB 3.375 GM 3.375 GM in DEXTROSE 5%-WATER - 50 ML IVPB ONE (11:22)
[2022-06-13] MEDS ORDERED: VANCOMYCIN 1 GM in D5W (PRE-DOCKED) 1,000 MG/250 ML IVPB ONE (11:22)
[2022-06-13] MEDS: LACTATED RINGERS SOLUTION 1,000 ML/1,000 ML INFUS.BAG IV SCH ×2 (11:34→14:29)
[2022-06-13 11:56] LABS: BASO % 0.4 % (0-2.0); EOS % 1.7 % (0-4.5); HEMATOCRIT 34.7 % (32.4-45.2); HEMOGLOBIN 11.3 GM/dL (10.7-15.3); LYMPH % 23.8 % (8-40); MCH 27.7 pg (25.7-33.7); MCHC 32.6 g/dl (32.0-36.0); MONO % 4.3 % (3.8-10.2); NEUT % 69.8 % (42.8-82.8); PLATELET COUNT 438 10^3/uL (134-434); RBC 4.08 M/mm3 (3.60-5.2); RDW 16.6 % (11.6-15.6); WHITE BLOOD COUNT 16.3 K/mm3 (4.0-10.0)
[2022-06-13] MEDS ORDERED: PIPERACILLIN/TAZOB 3.375 GM 3.375 GM/50 ML BAG IVPB ONE (11:56)
[2022-06-13] MEDS ORDERED: VANCOMYCIN/WATER FOR INJ (PEG) 1,000 MG/200 ML BAG IVPB ONE (11:56)
[2022-06-13 12:00] LABS: VENOUS BASE EXCESS -2.9 mmol/L (-2-2); VENOUS O2 SATURATION 78.4 % (70-80); VENOUS PCO2 35.1 mmHg (38-52); VENOUS PH 7.4 (7.310-7.410)
[2022-06-13 12:05] LABS: INR 1.25 (0.83-1.09); PROTHROMBIN TIME (PATIENT) 14.5 SEC (9.7-13.0)
[2022-06-13 12:13] LABS: CHLORIDE 107 mmol/L (98-107); SODIUM 137 mmol/L (136-145)
[2022-06-13 12:15] LABS: CALCIUM 7.8 mg/dL (8.5-10.1)
[2022-06-13 12:16] LABS: ALBUMIN 1.5 g/dl (3.4-5.0); ANION GAP 6 MMOL/L (8-16); BLOOD UREA NITROGEN 34.5 mg/dL (7-18); CO2 24 mmol/L (21-32); GLUCOSE,RANDOM 93 mg/dL (74-106)
[2022-06-13 12:19] LABS: SGOT/AST 17 U/L (15-37); SGPT/ALT 9 U/L (13-61)
[2022-06-13 12:21] LABS: BILIRUBIN,TOTAL 0.3 mg/dL (0.2-1)
[2022-06-13 12:21] LABS: EPI CELLS 10 /uL (0-25.1); HYALINE CASTS 2 /uL (0-3.1); PH,URINE 5.5 (5.0-8.0); URINE APPEARANCE TURBID; URINE BACTERIA 24 /uL (0-1359); URINE BILIRUBIN NEGATIVE (NEGATIVE); URINE COLOR DK YELLOW; URINE GLUCOSE (UA) NEGATIVE (NEGATIVE); URINE KETONE TRACE (NEGATIVE); URINE LEUK ESTERASE 3+ (NEGATIVE); URINE NITRITE NEGATIVE (NEGATIVE); URINE PROTEIN 1+ (NEGATIVE); URINE RBC 45.8 /uL (0-23.9); URINE UROBILINOGEN 0.2 mg/dL (0.2-1.0); URINE WBC 1238 /uL (0-25.8); YEAST NEGATIVE (NEGATIVE)
[2022-06-13 12:22] LABS: ALK PHOS 77 U/L (45-117)
[2022-06-13] MEDS ORDERED: SODIUM CHLORIDE 500 ML IV STA (13:21)
[2022-06-13] MEDS ORDERED: NOREPINEPHRINE BITARTRATE 4 MG/4 ML ML IV ONE (15:50)
[2022-06-13] MEDS: NOREPINEPHRINE BITARTRATE 4,000 MCG in DEXTROSE 5%-WATER - 496 ML IV SCH (16:00)
[2022-06-13] MEDS ORDERED: LACTATED RINGERS SOLUTION 1,000 ML/1,000 ML INFUS.BAG IV STA ×2 (21:01→22:11)
[2022-06-13] MEDS ORDERED: ACETAMINOPHEN 1000 MG/100 ML BAG IVPB ONE (21:01)
[2022-06-13] MEDS ORDERED: LINEZOLID 600 MG PREMIX BAG 600 MG/300 ML BAG IVPB SCH ×2 (21:45)
[2022-06-13] MEDS: HEPARIN NA (PORCINE) 5,000 UNITS/ML 1ML VIAL SQ SCH (21:53)
[2022-06-13] MEDS ORDERED: SODIUM CHLORIDE 1,000 ML IV STA (22:39)
[2022-06-13] MEDS: ALBUTEROL SO4 0.083% IH SOL 2.5 MG/3 ML VIAL.NEB. NEB SCH (23:19)
[2022-06-14] MEDS: VANCOMYCIN 250 MG/5 ML ORAL SOLUTION PO SCH ×4 (00:17→18:31)
[2022-06-14] MEDS: PIPERACILLIN/TAZOB 2.25 GM 2.25 GM in DEXTROSE 5%-WATER - 50 ML IVPB SCH ×2 (01:04→09:13)
[2022-06-14] MEDS ORDERED: PIPERACILLIN/TAZOB 2.25 GM 2.25 GM in DEXTROSE 5%-WATER - 50 ML IVPB SCH (02:00)
[2022-06-14] MEDS: LEVOTHYROXINE NA 50 MCG TABLET (FP) PO SCH (06:11)
[2022-06-14 07:09] LABS: HEMATOCRIT 30.4 % (32.4-45.2); HEMOGLOBIN 10.3 GM/dL (10.7-15.3); MCH 28.6 pg (25.7-33.7); MEAN CELL VOLUME 84.2 fl (80-96); MEAN PLT VOLUME 6.4 fl (7.5-11.1); PLATELET COUNT 335 10^3/uL (134-434); RDW 16.5 % (11.6-15.6); WHITE BLOOD COUNT 10.7 K/mm3 (4.0-10.0)
[2022-06-14] MEDS: ALBUTEROL SO4 0.083% IH SOL 2.5 MG/3 ML VIAL.NEB. NEB SCH ×4 (07:20→20:28)
[2022-06-14 07:27] LABS: CHLORIDE 111 mmol/L (98-107); SODIUM 140 mmol/L (136-145)
[2022-06-14 07:30] LABS: ANION GAP 6 MMOL/L (8-16); CO2 23 mmol/L (21-32); GLUCOSE,RANDOM 109 mg/dL (74-106); MAGNESIUM 1.5 mg/dL (1.8-2.4)
[2022-06-14 07:31] LABS: BLOOD UREA NITROGEN 22.2 mg/dL (7-18)
[2022-06-14 07:34] LABS: CREATININE 0.7 mg/dL (0.55-1.3); PHOSPHOROUS 2.3 mg/dL (2.5-4.9)
[2022-06-14 08:01] LABS: CALCIUM 6.7 mg/dL (8.5-10.1)
[2022-06-14] MEDS: PANTOPRAZOLE SODIUM 40 MG VIAL IVPUSH SCH (09:17)
[2022-06-14] MEDS: HEPARIN NA (PORCINE) 5,000 UNITS/ML 1ML VIAL SQ SCH ×2 (09:17→21:39)
[2022-06-14] MEDS ORDERED: PIPERACILLIN/TAZOB 3.375 GM 3.375 GM in DEXTROSE 5%-WATER - 50 ML IVPB SCH (10:00)
[2022-06-14] MEDS: LACTATED RINGERS SOLUTION 1,000 ML/1,000 ML INFUS.BAG IV SCH ×2 (12:31→18:34)
[2022-06-14] MEDS: PIPERACILLIN/TAZOB 3.375 GM 3.375 GM in DEXTROSE 5%-WATER - 50 ML IVPB SCH (18:30)
[2022-06-14] MEDS: NOREPINEPHRINE BITARTRATE 4,000 MCG in DEXTROSE 5%-WATER - 496 ML IV SCH (18:34)
[2022-06-14] MEDS ORDERED: LACTATED RINGERS SOLUTION 1000 ML INFUS.BAG IV ONE (21:29)
[2022-06-15] MEDS: VANCOMYCIN 250 MG/5 ML ORAL SOLUTION PO SCH ×5 (00:40→23:52)
[2022-06-15] MEDS ORDERED: LACTATED RINGERS SOLUTION 1000 ML INFUS.BAG IV ONE ×2 (03:21→03:40)
[2022-06-15] MEDS: PIPERACILLIN/TAZOB 3.375 GM 3.375 GM in DEXTROSE 5%-WATER - 50 ML IVPB SCH ×2 (03:30→09:31)
[2022-06-15 07:08] LABS: HEMATOCRIT 29.9 % (32.4-45.2); HEMOGLOBIN 10.2 GM/dL (10.7-15.3); MCHC 34.3 g/dl (32.0-36.0); MEAN CELL VOLUME 84.6 fl (80-96); MEAN PLT VOLUME 6.5 fl (7.5-11.1); PLATELET COUNT 299 10^3/uL (134-434); RBC 3.53 M/mm3 (3.60-5.2); RDW 16.6 % (11.6-15.6); WHITE BLOOD COUNT 7.9 K/mm3 (4.0-10.0)
[2022-06-15 07:52] LABS: CALCIUM 7.4 mg/dL (8.5-10.1); CREATININE 0.8 mg/dL (0.55-1.3); MAGNESIUM 1.6 mg/dL (1.8-2.4); PHOSPHOROUS 2.7 mg/dL (2.5-4.9)
[2022-06-15] MEDS: ALBUTEROL SO4 0.083% IH SOL 2.5 MG/3 ML VIAL.NEB. NEB SCH ×4 (08:50→20:19)
[2022-06-15] MEDS: PANTOPRAZOLE SODIUM 40 MG VIAL IVPUSH SCH (09:31)
[2022-06-15] MEDS: MIDODRINE HCL 5 MG TABLET PO SCH ×3 (09:32→17:01)
[2022-06-15] MEDS: LEVOTHYROXINE NA 50 MCG TABLET (FP) PO SCH (09:32)
[2022-06-15] MEDS: HEPARIN NA (PORCINE) 5,000 UNITS/ML 1ML VIAL SQ SCH ×2 (09:32→22:42)
[2022-06-15] MEDS ORDERED: MAGNESIUM SULF 50% (8.12 MEQ/2 ML-1 GM VIAL) IVPB ONE (11:00)
[2022-06-15 15:16] LABS: ALBUMIN 1.4 g/dl (3.4-5.0)
[2022-06-15 16:35] VITALS: BMI 27.1
[2022-06-15] MEDS: INSULIN SLIDING SCALE (NOVOLOG) 1 VIAL SQ SCH (16:50)
[2022-06-15] MEDS: LACTATED RINGERS SOLUTION 1,000 ML/1,000 ML INFUS.BAG IV SCH (19:15)
[2022-06-16] MEDS: INSULIN SLIDING SCALE (NOVOLOG) 1 VIAL SQ SCH ×3 (06:37→18:22)
[2022-06-16] MEDS: LEVOTHYROXINE NA 50 MCG TABLET (FP) PO SCH (06:37)
[2022-06-16] MEDS: VANCOMYCIN 250 MG/5 ML ORAL SOLUTION PO SCH ×3 (06:37→23:15)
[2022-06-16 07:37] LABS: CALCIUM 7.7 mg/dL (8.5-10.1)
[2022-06-16 07:38] LABS: ALBUMIN 1.4 g/dl (3.4-5.0); BLOOD UREA NITROGEN 12.5 mg/dL (7-18); MAGNESIUM 1.7 mg/dL (1.8-2.4)
[2022-06-16 07:40] LABS: PHOSPHOROUS 2.8 mg/dL (2.5-4.9)
[2022-06-16 07:41] LABS: CREATININE 0.7 mg/dL (0.55-1.3)
[2022-06-16 07:42] LABS: BILIRUBIN,TOTAL 0.2 mg/dL (0.2-1); TOT PROT 4.6 g/dl (6.4-8.2)
[2022-06-16] MEDS: ALBUTEROL SO4 0.083% IH SOL 2.5 MG/3 ML VIAL.NEB. NEB SCH ×4 (07:45→19:47)
[2022-06-16 07:58] LABS: HEMATOCRIT 32.6 % (32.4-45.2); HEMOGLOBIN 11.1 GM/dL (10.7-15.3); MCH 28.8 pg (25.7-33.7); MEAN CELL VOLUME 84.8 fl (80-96); MEAN PLT VOLUME 6.3 fl (7.5-11.1); PLATELET COUNT 358 10^3/uL (134-434); RBC 3.85 M/mm3 (3.60-5.2); RDW 16.7 % (11.6-15.6); WHITE BLOOD COUNT 5.6 K/mm3 (4.0-10.0)
[2022-06-16] MEDS: MIDODRINE HCL 5 MG TABLET PO SCH ×3 (09:06→18:22)
[2022-06-16] MEDS: PANTOPRAZOLE SODIUM 40 MG VIAL IVPUSH SCH (09:06)
[2022-06-16] MEDS: HEPARIN NA (PORCINE) 5,000 UNITS/ML 1ML VIAL SQ SCH ×2 (09:06→23:35)
[2022-06-16] MEDS: NYSTATIN 100000 UNIT/GM TOPICAL OINTMENT 15 GM TUBE TP SCH ×2 (12:20→23:36)
[2022-06-16] MEDS: LACTATED RINGERS SOLUTION 1,000 ML/1,000 ML INFUS.BAG IV SCH (23:14)
[2022-06-17] MEDS: VANCOMYCIN 250 MG/5 ML ORAL SOLUTION PO SCH ×6 (00:43→17:32)
[2022-06-17] MEDS: INSULIN SLIDING SCALE (NOVOLOG) 1 VIAL SQ SCH ×3 (06:55→16:24)
[2022-06-17] MEDS: LEVOTHYROXINE NA 50 MCG TABLET (FP) PO SCH (06:55)
[2022-06-17] MEDS: ALBUTEROL SO4 0.083% IH SOL 2.5 MG/3 ML VIAL.NEB. NEB SCH ×4 (08:17→19:53)
[2022-06-17] MEDS: MIDODRINE HCL 5 MG TABLET PO SCH ×3 (10:07→17:32)
[2022-06-17] MEDS: PANTOPRAZOLE SODIUM 40 MG VIAL IVPUSH SCH (10:07)
[2022-06-17] MEDS: HEPARIN NA (PORCINE) 5,000 UNITS/ML 1ML VIAL SQ SCH ×2 (10:08→23:20)
[2022-06-17 10:29] LABS: ALBUMIN 1.4 g/dl (3.4-5.0); CALCIUM 7.5 mg/dL (8.5-10.1); MAGNESIUM 1.4 mg/dL (1.8-2.4)
[2022-06-17 10:31] LABS: BASO % 0.6 % (0-2.0); EOS % 2.1 % (0-4.5); HEMATOCRIT 30.4 % (32.4-45.2); HEMOGLOBIN 10.2 GM/dL (10.7-15.3); LYMPH % 39.2 % (8-40); MCH 28.8 pg (25.7-33.7); MCHC 33.6 g/dl (32.0-36.0); MEAN CELL VOLUME 85.7 fl (80-96); MEAN PLT VOLUME 6.6 fl (7.5-11.1); MONO % 5.6 % (3.8-10.2); NEUT % 52.5 % (42.8-82.8); PLATELET COUNT 300 10^3/uL (134-434); RBC 3.55 M/mm3 (3.60-5.2); RDW 16.7 % (11.6-15.6); WHITE BLOOD COUNT 5.8 K/mm3 (4.0-10.0)
[2022-06-17 10:32] LABS: PHOSPHOROUS 2.1 mg/dL (2.5-4.9)
[2022-06-17 10:33] LABS: CREATININE 0.5 mg/dL (0.55-1.3)
[2022-06-17 10:34] LABS: BILIRUBIN,TOTAL 0.2 mg/dL (0.2-1); TOT PROT 4.3 g/dl (6.4-8.2)
[2022-06-17] MEDS: NYSTATIN 100000 UNIT/GM TOPICAL OINTMENT 15 GM TUBE TP SCH ×2 (11:24→23:21)
[2022-06-17] MEDS ORDERED: INSULIN (NOVOLOG) ASPART 100 UNITS/ML 10ML VIAL ONE (11:29)
[2022-06-17] MEDS ORDERED: MAGNESIUM SULF 50% (8.12 MEQ/2 ML-1 GM VIAL) IVPB ONE (13:54)
[2022-06-17] MEDS ORDERED: POTASSIUM PHOSPHATE 30 MM in SODIUM CHLORIDE 500 ML IVPB ONE (13:56)
[2022-06-17] MEDS: LACTATED RINGERS SOLUTION 1,000 ML/1,000 ML INFUS.BAG IV SCH (23:23)
[2022-06-18] MEDS: VANCOMYCIN 250 MG/5 ML ORAL SOLUTION PO SCH ×4 (00:08→17:24)
[2022-06-18] MEDS: INSULIN SLIDING SCALE (NOVOLOG) 1 VIAL SQ SCH ×3 (07:00→16:55)
[2022-06-18] MEDS: LEVOTHYROXINE NA 50 MCG TABLET (FP) PO SCH (07:00)
[2022-06-18] MEDS: ALBUTEROL SO4 0.083% IH SOL 2.5 MG/3 ML VIAL.NEB. NEB SCH ×4 (07:35→20:04)
[2022-06-18 08:33] LABS: BASO % 1.1 % (0-2.0); EOS % 2.4 % (0-4.5); HEMATOCRIT 32.2 % (32.4-45.2); HEMOGLOBIN 10.9 GM/dL (10.7-15.3); LYMPH % 38.3 % (8-40); MCH 28.3 pg (25.7-33.7); MCHC 33.7 g/dl (32.0-36.0); MEAN CELL VOLUME 83.9 fl (80-96); NEUT % 52.2 % (42.8-82.8); PLATELET COUNT 323 10^3/uL (134-434); RBC 3.84 M/mm3 (3.60-5.2); WHITE BLOOD COUNT 5.9 K/mm3 (4.0-10.0)
[2022-06-18 08:53] LABS: ALBUMIN 1.4 g/dl (3.4-5.0); CALCIUM 7.7 mg/dL (8.5-10.1); MAGNESIUM 1.5 mg/dL (1.8-2.4)
[2022-06-18 08:56] LABS: CREATININE 0.6 mg/dL (0.55-1.3); PHOSPHOROUS 2.7 mg/dL (2.5-4.9)
[2022-06-18 08:57] LABS: TOT PROT 4.5 g/dl (6.4-8.2)
[2022-06-18 08:58] LABS: BILIRUBIN,TOTAL 0.3 mg/dL (0.2-1)
[2022-06-18 09:00] LABS: BLOOD UREA NITROGEN 5.9 mg/dL (7-18)
[2022-06-18] MEDS: HEPARIN NA (PORCINE) 5,000 UNITS/ML 1ML VIAL SQ SCH (09:54)
[2022-06-18] MEDS: PANTOPRAZOLE SODIUM 40 MG VIAL IVPUSH SCH (09:54)
[2022-06-18] MEDS: MIDODRINE HCL 5 MG TABLET PO SCH ×3 (09:54→17:24)
[2022-06-18] MEDS: NYSTATIN 100000 UNIT/GM TOPICAL OINTMENT 15 GM TUBE TP SCH (09:55)
[2022-06-18] MEDS ORDERED: INSULIN (NOVOLOG) ASPART 100 UNITS/ML 10ML VIAL ONE ×2 (12:09→12:16)
[2022-06-18] MEDS ORDERED: MAGNESIUM SULF 50% (8.12 MEQ/2 ML-1 GM VIAL) IVPB ONE (12:23)
[2022-06-18 15:58] VITALS: BP 104/56; PULSE 98; RESP 18; TEMP 98.3
== END 2022-06-18 19:00 | DRG 871 ==
LOC: JER 10:14 → JERBED 14:25 → JICU 18:30 → J8W 06-16 15:43
PROVIDERS: ADMIT Internal Medicine; ATTEND Internal Medicine
DX: A41.9 Sepsis, unspecified organism (principal); R65.21 Severe sepsis with septic shock; I50.32 Chronic diastolic (congestive) heart failure; N17.9 Acute kidney failure, unspecified; A04.71 Enterocolitis due to Clostridium difficile, recurrent; N39.0 Urinary tract infection, site not specified; E03.9 Hypothyroidism, unspecified; I25.10 Atherosclerotic heart disease of native coronary artery without angina pectoris; I11.0 Hypertensive heart disease with heart failure; J44.9 Chronic obstructive pulmonary disease, unspecified; K21.9 Gastro-esophageal reflux disease without esophagitis; E11.9 Type 2 diabetes mellitus without complications; F03.90 Unspecified dementia, unspecified severity, without behavioral disturbance, psychotic disturbance, mood disturbance, and anxiety; Z79.4 Long term (current) use of insulin; R33.8 Other retention of urine; B36.8 Other specified superficial mycoses
CPT/HCPCS: 0241U-QW; 36415; 71045-TC-FY; 80048; 80053; 81003; 82040; 82550; 82553; 82803; 82962; 83605; 83735; 84100; 84439; 84443; 84484; 85025; 85027; 85610; 85730; 86850; 86900; 86901; 87040; 87077; 87086; 87324; 87449; 87493; 93005; 93010; 94640; 97161-GP; 99285-25; C9803-CS; J1644; U0003; U0005

== ENCOUNTER 2022-08-13 15:22 | Inpatient (IN) | payer OTHER ==
[2022-08-13] MEDS ORDERED: ACETAMINOPHEN 1000 MG/100 ML BAG IVPB ONE (16:15)
[2022-08-13] MEDS ORDERED: LACTATED RINGERS SOLUTION 1000 ML INFUS.BAG IV ONE ×3 (16:15→17:41)
[2022-08-13] MEDS ORDERED: ACETAMINOPHEN INJECTION 100 ML IVPB ONE (16:22)
[2022-08-13] MEDS ORDERED: PANTOPRAZOLE SODIUM 40 MG VIAL IVPUSH ONE (16:31)
[2022-08-13 16:49] LABS: BASO % 0.2 % (0-2.0); EOS % 0.1 % (0-4.5); HEMATOCRIT 33.5 % (32.4-45.2); HEMOGLOBIN 10.9 GM/dL (10.7-15.3); LYMPH % 13.8 % (8-40); MCH 28.9 pg (25.7-33.7); MCHC 32.7 g/dl (32.0-36.0); MEAN CELL VOLUME 88.2 fl (80-96); MEAN PLT VOLUME 6.9 fl (7.5-11.1); MONO % 6.1 % (3.8-10.2); NEUT % 79.8 % (42.8-82.8); PLATELET COUNT 264 10^3/uL (134-434); RBC 3.79 M/mm3 (3.60-5.2); RDW 16.6 % (11.6-15.6); VENOUS BASE EXCESS 3.3 mmol/L (-2-2); VENOUS O2 SATURATION 73.7 % (70-80); VENOUS PCO2 42.8 mmHg (38-52); VENOUS PH 7.433 (7.310-7.410); WHITE BLOOD COUNT 18.2 K/mm3 (4.0-10.0)
[2022-08-13] MEDS ORDERED: PANTOPRAZOLE SODIUM 40 MG/100 ML BAG IVPB ONE (16:53)
[2022-08-13 16:56] LABS: INR 1.16 (0.83-1.09); PROTHROMBIN TIME (PATIENT) 13.4 SEC (9.7-13.0)
[2022-08-13 16:59] LABS: ACTIVATED PTT 30.5 SECONDS (25.2-36.5)
[2022-08-13 17:08] LABS: POTASSIUM 4.4 mmol/L (3.5-5.1)
[2022-08-13 17:10] LABS: CALCIUM 8.6 mg/dL (8.5-10.1)
[2022-08-13 17:11] LABS: ALBUMIN 2.1 g/dl (3.4-5.0); BLOOD UREA NITROGEN 23.4 mg/dL (7-18); MAGNESIUM 1.6 mg/dL (1.8-2.4)
[2022-08-13 17:14] LABS: CREATININE 1.2 mg/dL (0.55-1.3)
[2022-08-13 17:15] LABS: BILIRUBIN,TOTAL 0.6 mg/dL (0.2-1); TOT PROT 6.1 g/dl (6.4-8.2)
[2022-08-13] MEDS ORDERED: NOREPINEPHRINE BITARTRATE/D5W 8 MG/250 ML BAG IVPB ONE (17:59)
[2022-08-13] MEDS ORDERED: MAGNESIUM SULF 50% (8.12 MEQ/2 ML-1 GM VIAL) IVPB ONE (18:17)
[2022-08-13] MEDS ORDERED: MAGNESIUM SULFATE IN WATER 2 GM/50 ML IVPB IVPB ONE (18:50)
[2022-08-13] MEDS: NOREPINEPHRINE BITARTRATE/D5W 8 MG/250 ML BAG IVPB SCH (19:04)
[2022-08-13] MEDS ORDERED: PIPERACILLIN/TAZOB 4.5 GM 4.5 GM in DEXTROSE 5%-WATER 100 ML IVPB ONE (19:25)
[2022-08-13] MEDS ORDERED: VANCOMYCIN 1 GM in D5W (PRE-DOCKED) 1,000 MG/250 ML (RESTRICTED TO ID ONLY IVPB ONE (19:25)
[2022-08-13] MEDS ORDERED: PIPERACILLIN/TAZOB 4.5 GM 4.5 GM/100 ML BAG IVPB ONE (19:54)
[2022-08-13 20:20] LABS: EPI CELLS 9 /uL (0-25.1); HYALINE CASTS 5 /uL (0-3.1); PH,URINE 7.5 (5.0-8.0); URINE APPEARANCE CLOUDY; URINE BACTERIA >9,000 /uL (0-1359); URINE BILIRUBIN NEGATIVE (NEGATIVE); URINE COLOR YELLOW; URINE GLUCOSE (UA) NEGATIVE (NEGATIVE); URINE KETONE NEGATIVE (NEGATIVE); URINE LEUK ESTERASE 3+ (NEGATIVE); URINE NITRITE NEGATIVE (NEGATIVE); URINE PROTEIN 1+ (NEGATIVE); URINE RBC 13 /uL (0-23.9); URINE UROBILINOGEN 0.2 mg/dL (0.2-1.0); URINE WBC 2447 /uL (0-25.8)
[2022-08-13] MEDS: ALBUTEROL SO4 2.5/IPRATROPIUM 0.5 INH SOL 3 ML VIAL.NEB. NEB SCH (20:50)
[2022-08-13] MEDS ORDERED: VANCOMYCIN 1 GM/200 ML PREMIX BAG (RESTRICTED TO ID ONLY) IVPB ONE (21:15)
[2022-08-13] MEDS: MUPIROCIN 2% TOPICAL OINTMENT FOR DECOLONIZATION NS SCH (21:22)
[2022-08-13] MEDS: LACTATED RINGERS SOLUTION 1,000 ML/1,000 ML INFUS.BAG IV SCH (21:22)
[2022-08-13] MEDS: HEPARIN NA (PORCINE) 5,000 UNITS/ML 1ML VIAL SQ SCH (21:23)
[2022-08-13] MEDS: CHLORHEXIDINE GLUCONATE 4% CLEANSER FOR DECOLONIZATION TP SCH (21:23)
[2022-08-13] MEDS ORDERED: MUPIROCIN 2% TOPICAL OINTMENT FOR DECOLONIZATION NS SCH (22:00)
[2022-08-13] MEDS: ACETAMINOPHEN 1000 MG/100 ML BAG IVPB PRN (22:55)
[2022-08-14] MEDS: VANCOMYCIN ORAL SOLUTION 125 MG/2.5 ML PO SCH ×4 (01:41→17:06)
[2022-08-14] MEDS: PIPERACILLIN/TAZOB 3.375 GM 3.375 GM in DEXTROSE 5%-WATER - 50 ML IVPB SCH ×2 (01:42→09:44)
[2022-08-14] MEDS ORDERED: PIPERACILLIN/TAZOB 3.375 GM 3.375 GM in DEXTROSE 5%-WATER - 50 ML IVPB SCH (02:00)
[2022-08-14] MEDS: HEPARIN NA (PORCINE) 5,000 UNITS/ML 1ML VIAL SQ SCH ×3 (05:55→21:32)
[2022-08-14 07:14] LABS: HEMATOCRIT 31.1 % (32.4-45.2); HEMOGLOBIN 10.5 GM/dL (10.7-15.3); MCH 29.9 pg (25.7-33.7); MCHC 33.8 g/dl (32.0-36.0); MEAN CELL VOLUME 88.6 fl (80-96); MEAN PLT VOLUME 7.1 fl (7.5-11.1); PLATELET COUNT 307 10^3/uL (134-434); RBC 3.51 M/mm3 (3.60-5.2); RDW 16.3 % (11.6-15.6); WHITE BLOOD COUNT 21.4 K/mm3 (4.0-10.0)
[2022-08-14] MEDS: ALBUTEROL SO4 2.5/IPRATROPIUM 0.5 INH SOL 3 ML VIAL.NEB. NEB SCH ×2 (07:37→20:19)
[2022-08-14] MEDS: ACETAMINOPHEN 1000 MG/100 ML BAG IVPB PRN ×2 (07:42→17:02)
[2022-08-14 07:44] LABS: POTASSIUM 4.8 mmol/L (3.5-5.1)
[2022-08-14] MEDS ORDERED: LACTATED RINGERS SOLUTION 1000 ML INFUS.BAG IV ONE (07:46)
[2022-08-14 07:48] LABS: ALBUMIN 1.8 g/dl (3.4-5.0); BLOOD UREA NITROGEN 19.3 mg/dL (7-18); CALCIUM 8.4 mg/dL (8.5-10.1); MAGNESIUM 2.1 mg/dL (1.8-2.4)
[2022-08-14 07:51] LABS: CREATININE 1.1 mg/dL (0.55-1.3); PHOSPHOROUS 3.5 mg/dL (2.5-4.9)
[2022-08-14 07:53] LABS: BILIRUBIN,TOTAL 0.7 mg/dL (0.2-1); TOT PROT 5.4 g/dl (6.4-8.2)
[2022-08-14 08:06] LABS: INR 1.25 (0.83-1.09); PROTHROMBIN TIME (PATIENT) 14.5 SEC (9.7-13.0)
[2022-08-14 08:09] LABS: ACTIVATED PTT 32.3 SECONDS (25.2-36.5)
[2022-08-14 08:52] LABS: ANISOCYTOSIS 1+; MACROCYTOSIS 0
[2022-08-14] MEDS ORDERED: ONDANSETRON 4 MG TABLET PO PRN (09:00)
[2022-08-14] MEDS: LEVOTHYROXINE NA 50 MCG TABLET (FP) PO SCH (09:42)
[2022-08-14] MEDS: ASCORBIC ACID 250 MG TABLET (FP) PO SCH (09:44)
[2022-08-14] MEDS: MUPIROCIN 2% TOPICAL OINTMENT FOR DECOLONIZATION NS SCH ×2 (09:44→21:33)
[2022-08-14] MEDS ORDERED: PANTOPRAZOLE SODIUM 40 MG VIAL IVPUSH SCH (10:00)
[2022-08-14] MEDS ORDERED: MEROPENEM 1 GM in DEXTROSE 5%-WATER 100 ML IVPB SCH (10:00)
[2022-08-14] MEDS ORDERED: guaiFENesin/D-METHORPHAN HB 5 ML UNIT-DOSE CUPS PO PRN (10:22)
[2022-08-14] MEDS ORDERED: guaiFENesin/D-METHORPHAN HB 10 ML UNIT-DOSE CUPS PO PRN (11:22)
[2022-08-14] MEDS ORDERED: IPRATROPIUM BR 0.02% 0.5 MG/2.5 ML VIAL.NEB. NEB SCH (12:00)
[2022-08-14] MEDS ORDERED: INSULIN (NOVOLOG) ASPART 100 UNITS/ML 10ML VIAL ONE (12:07)
[2022-08-14] MEDS: INSULIN SLIDING SCALE (NOVOLOG) 1 VIAL SQ SCH ×2 (12:24→17:19)
[2022-08-14] MEDS: MIDODRINE HCL 5 MG TABLET PO SCH ×2 (13:56→17:06)
[2022-08-14] MEDS: NYSTATIN POWDER 100,000 UNITS/GM - 15 GM TOPICAL POWDER TP SCH ×2 (14:07→21:34)
[2022-08-14] MEDS: MEROPENEM 1 GM in DEXTROSE 5%-WATER 100 ML IVPB SCH (17:05)
[2022-08-14] MEDS ORDERED: VANCOMYCIN ORAL SOLUTION 125 MG/2.5 ML PO ONE (18:22)
[2022-08-14] MEDS: MIRTAZAPINE 15 MG TABLET (FP) PO SCH (21:32)
[2022-08-14] MEDS: POLYETHYLENE GLYCOL (HEALTHYLAX) 3350 17 GM PACKET PO SCH (21:32)
[2022-08-14] MEDS: NOREPINEPHRINE BITARTRATE/D5W 8 MG/250 ML BAG IVPB SCH (21:33)
[2022-08-14] MEDS: LACTATED RINGERS SOLUTION 1,000 ML/1,000 ML INFUS.BAG IV SCH (21:33)
[2022-08-14] MEDS: CHLORHEXIDINE GLUCONATE 4% CLEANSER FOR DECOLONIZATION TP SCH (21:34)
[2022-08-14] MEDS ORDERED: VANCOMYCIN/WATER 1,250 MG/250 ML BAG (RESTRICTED TO ID ONLY) IVPB SCH ×2 (22:45)
[2022-08-15] MEDS: VANCOMYCIN ORAL SOLUTION 125 MG/2.5 ML PO SCH ×4 (01:01→17:04)
[2022-08-15] MEDS: MEROPENEM 1 GM in DEXTROSE 5%-WATER 100 ML IVPB SCH ×3 (01:01→17:03)
[2022-08-15] MEDS ORDERED: LINEZOLID 600 MG PREMIX BAG 600 MG in PREMIX 300 IVPB SCH (06:30)
[2022-08-15] MEDS: NYSTATIN POWDER 100,000 UNITS/GM - 15 GM TOPICAL POWDER TP SCH ×3 (06:39→21:32)
[2022-08-15] MEDS: INSULIN SLIDING SCALE (NOVOLOG) 1 VIAL SQ SCH ×3 (06:39→16:44)
[2022-08-15] MEDS: HEPARIN NA (PORCINE) 5,000 UNITS/ML 1ML VIAL SQ SCH ×3 (06:40→21:33)
[2022-08-15] MEDS: LEVOTHYROXINE NA 50 MCG TABLET (FP) PO SCH (06:40)
[2022-08-15 07:34] LABS: BASO % 0.3 % (0-2.0); EOS % 0.1 % (0-4.5); HEMATOCRIT 28.3 % (32.4-45.2); HEMOGLOBIN 9.6 GM/dL (10.7-15.3); MCH 29.9 pg (25.7-33.7); MCHC 33.9 g/dl (32.0-36.0); MEAN CELL VOLUME 88.2 fl (80-96); MONO % 5.4 % (3.8-10.2); NEUT % 80.2 % (42.8-82.8); PLATELET COUNT 244 10^3/uL (134-434); RBC 3.21 M/mm3 (3.60-5.2); RDW 16.7 % (11.6-15.6); WHITE BLOOD COUNT 12.7 K/mm3 (4.0-10.0)
[2022-08-15] MEDS ORDERED: ACETAMINOPHEN INJECTION 100 ML IVPB ONE (07:41)
[2022-08-15] MEDS ORDERED: ACETYLCYSTEINE 20% 200MG/ML 30ML VIAL *FOR INJECTION USE ONLY IVPB PRN (07:56)
[2022-08-15] MEDS: ACETAMINOPHEN 1000 MG/100 ML BAG IVPB PRN ×2 (08:00→16:22)
[2022-08-15 08:03] LABS: POTASSIUM 3.9 mmol/L (3.5-5.1)
[2022-08-15 08:06] LABS: CALCIUM 8.1 mg/dL (8.5-10.1)
[2022-08-15 08:07] LABS: ALBUMIN 1.5 g/dl (3.4-5.0); BLOOD UREA NITROGEN 16.5 mg/dL (7-18); MAGNESIUM 1.7 mg/dL (1.8-2.4)
[2022-08-15 08:09] LABS: PHOSPHOROUS 2.6 mg/dL (2.5-4.9)
[2022-08-15 08:11] LABS: BILIRUBIN,TOTAL 0.4 mg/dL (0.2-1); TOT PROT 4.8 g/dl (6.4-8.2)
[2022-08-15] MEDS: ALBUTEROL SO4 2.5/IPRATROPIUM 0.5 INH SOL 3 ML VIAL.NEB. NEB SCH ×2 (08:29→20:54)
[2022-08-15] MEDS ORDERED: MIDODRINE HCL 5 MG TABLET PO SCH (08:37)
[2022-08-15] MEDS ORDERED: MAGNESIUM 1GM/D5W - 1 GM/100 ML IVPB IVPB ONE (08:39)
[2022-08-15] MEDS ORDERED: LINEZOLID 600 MG PREMIX BAG 600 MG/300 ML BAG IVPB SCH (09:00)
[2022-08-15] MEDS: ASCORBIC ACID 250 MG TABLET (FP) PO SCH (09:20)
[2022-08-15] MEDS: POLYETHYLENE GLYCOL (HEALTHYLAX) 3350 17 GM PACKET PO SCH ×2 (09:21→21:33)
[2022-08-15] MEDS: FOLIC ACID 1 MG TABLET (FP) PO SCH (09:44)
[2022-08-15] MEDS: FENOFIBRIC ACID 135 MG CAP PO SCH (09:44)
[2022-08-15] MEDS: FAMOTIDINE 10 MG TABLET PO SCH (09:44)
[2022-08-15] MEDS: MULTIVITAMINS (DAILY MVI) TABLET (FP) PO SCH (09:44)
[2022-08-15] MEDS: ANASTROZOLE 1 MG TABLET PO SCH (09:45)
[2022-08-15] MEDS: MUPIROCIN 2% TOPICAL OINTMENT FOR DECOLONIZATION NS SCH ×2 (09:46→21:34)
[2022-08-15] MEDS: MIDODRINE HCL 5 MG TABLET PO SCH ×5 (10:03→17:04)
[2022-08-15] MEDS: LACTATED RINGERS SOLUTION 1,000 ML/1,000 ML INFUS.BAG IV SCH ×2 (10:13→21:35)
[2022-08-15] MEDS ORDERED: VANCOMYCIN/WATER 1250 MG 1,250 MG/250 ML BAG IVPB SCH (11:00)
[2022-08-15] MEDS ORDERED: INSULIN (NOVOLOG) ASPART 100 UNITS/ML 10ML VIAL ONE ×2 (11:40→21:06)
[2022-08-15] MEDS ORDERED: DAPTOMYCIN 500 MG in SODIUM CHLORIDE 50 ML IVPB ONE (13:30)
[2022-08-15] MEDS: NOREPINEPHRINE BITARTRATE/D5W 8 MG/250 ML BAG IVPB SCH (17:31)
[2022-08-15] MEDS: CHLORHEXIDINE GLUCONATE 4% CLEANSER FOR DECOLONIZATION TP SCH (21:33)
[2022-08-15] MEDS: MIRTAZAPINE 15 MG TABLET (FP) PO SCH (21:35)
[2022-08-16] MEDS: VANCOMYCIN ORAL SOLUTION 125 MG/2.5 ML PO SCH ×4 (00:30→17:15)
[2022-08-16] MEDS: MIDODRINE HCL 5 MG TABLET PO SCH ×3 (01:07→17:15)
[2022-08-16] MEDS: ACETAMINOPHEN 1000 MG/100 ML BAG IVPB PRN ×3 (01:10→21:38)
[2022-08-16] MEDS: MEROPENEM 1 GM in DEXTROSE 5%-WATER 100 ML IVPB SCH ×3 (01:12→17:14)
[2022-08-16] MEDS: NYSTATIN POWDER 100,000 UNITS/GM - 15 GM TOPICAL POWDER TP SCH ×3 (06:28→21:14)
[2022-08-16] MEDS: INSULIN SLIDING SCALE (NOVOLOG) 1 VIAL SQ SCH ×3 (06:29→15:53)
[2022-08-16] MEDS ORDERED: INSULIN (NOVOLOG) ASPART 100 UNITS/ML 10ML VIAL ONE ×2 (06:30→11:17)
[2022-08-16] MEDS: HEPARIN NA (PORCINE) 5,000 UNITS/ML 1ML VIAL SQ SCH ×3 (06:30→21:14)
[2022-08-16] MEDS: LEVOTHYROXINE NA 50 MCG TABLET (FP) PO SCH (06:31)
[2022-08-16 07:43] LABS: POTASSIUM 3.6 mmol/L (3.5-5.1)
[2022-08-16 07:47] LABS: ALBUMIN 1.4 g/dl (3.4-5.0); BLOOD UREA NITROGEN 15.5 mg/dL (7-18); CALCIUM 8.2 mg/dL (8.5-10.1)
[2022-08-16 07:48] LABS: MAGNESIUM 1.8 mg/dL (1.8-2.4)
[2022-08-16 07:50] LABS: CREATININE 1.1 mg/dL (0.55-1.3); PHOSPHOROUS 2.5 mg/dL (2.5-4.9)
[2022-08-16 07:52] LABS: BILIRUBIN,TOTAL 0.5 mg/dL (0.2-1); TOT PROT 4.7 g/dl (6.4-8.2)
[2022-08-16 08:20] LABS: BASO % 0.4 % (0-2.0); HEMATOCRIT 27.9 % (32.4-45.2); HEMOGLOBIN 9.7 GM/dL (10.7-15.3); LYMPH % 16.1 % (8-40); MCH 30.5 pg (25.7-33.7); MCHC 34.9 g/dl (32.0-36.0); MEAN CELL VOLUME 87.2 fl (80-96); MONO % 4.3 % (3.8-10.2); NEUT % 79.2 % (42.8-82.8); PLATELET COUNT 280 10^3/uL (134-434); RBC 3.19 M/mm3 (3.60-5.2); RDW 16.3 % (11.6-15.6); WHITE BLOOD COUNT 7.3 K/mm3 (4.0-10.0)
[2022-08-16] MEDS: ALBUTEROL SO4 2.5/IPRATROPIUM 0.5 INH SOL 3 ML VIAL.NEB. NEB SCH ×2 (08:59→20:05)
[2022-08-16] MEDS: FAMOTIDINE 10 MG TABLET PO SCH (09:36)
[2022-08-16] MEDS: FOLIC ACID 1 MG TABLET (FP) PO SCH (09:37)
[2022-08-16] MEDS: MUPIROCIN 2% TOPICAL OINTMENT FOR DECOLONIZATION NS SCH ×2 (09:37→22:00)
[2022-08-16] MEDS: ASCORBIC ACID 250 MG TABLET (FP) PO SCH (09:37)
[2022-08-16] MEDS: FENOFIBRIC ACID 135 MG CAP PO SCH (09:37)
[2022-08-16] MEDS: MULTIVITAMINS (DAILY MVI) TABLET (FP) PO SCH (09:37)
[2022-08-16] MEDS: ANASTROZOLE 1 MG TABLET PO SCH (09:37)
[2022-08-16] MEDS: POLYETHYLENE GLYCOL (HEALTHYLAX) 3350 17 GM PACKET PO SCH ×2 (09:38→21:14)
[2022-08-16] MEDS ORDERED: VANCOMYCIN ORAL SOLUTION 125 MG/2.5 ML PO SCH (10:00)
[2022-08-16] MEDS: LACTATED RINGERS SOLUTION 1,000 ML/1,000 ML INFUS.BAG IV SCH ×2 (11:52→21:13)
[2022-08-16] MEDS: VANCOMYCIN/WATER FOR INJ (PEG) 1,000 MG/200 ML BAG IVPB SCH (12:37)
[2022-08-16] MEDS ORDERED: LACTATED RINGERS SOLUTION 1000 ML INFUS.BAG IV ONE (15:15)
[2022-08-16] MEDS: NOREPINEPHRINE BITARTRATE/D5W 8 MG/250 ML BAG IVPB SCH ×2 (15:53→22:20)
[2022-08-16] MEDS: CHLORHEXIDINE GLUCONATE 4% CLEANSER FOR DECOLONIZATION TP SCH (21:14)
[2022-08-16] MEDS: MIRTAZAPINE 15 MG TABLET (FP) PO SCH (21:15)
[2022-08-17] MEDS: VANCOMYCIN/WATER FOR INJ (PEG) 1,000 MG/200 ML BAG IVPB SCH ×2 (00:32→13:40)
[2022-08-17] MEDS: VANCOMYCIN ORAL SOLUTION 125 MG/2.5 ML PO SCH ×4 (00:32→17:57)
[2022-08-17] MEDS: MEROPENEM 1 GM in DEXTROSE 5%-WATER 100 ML IVPB SCH ×3 (01:58→17:25)
[2022-08-17] MEDS: MIDODRINE HCL 5 MG TABLET PO SCH ×3 (01:58→17:57)
[2022-08-17] MEDS: HEPARIN NA (PORCINE) 5,000 UNITS/ML 1ML VIAL SQ SCH ×3 (06:12→21:21)
[2022-08-17] MEDS: NYSTATIN POWDER 100,000 UNITS/GM - 15 GM TOPICAL POWDER TP SCH ×3 (06:13→21:21)
[2022-08-17] MEDS: LACTATED RINGERS SOLUTION 1,000 ML/1,000 ML INFUS.BAG IV SCH ×2 (06:13→21:19)
[2022-08-17] MEDS: LEVOTHYROXINE NA 50 MCG TABLET (FP) PO SCH (06:14)
[2022-08-17] MEDS: INSULIN SLIDING SCALE (NOVOLOG) 1 VIAL SQ SCH ×4 (06:17→21:27)
[2022-08-17 07:18] LABS: BASO % 0.3 % (0-2.0); EOS % 0.9 % (0-4.5); HEMATOCRIT 27.6 % (32.4-45.2); HEMOGLOBIN 9.5 GM/dL (10.7-15.3); LYMPH % 33.3 % (8-40); MCH 29.9 pg (25.7-33.7); MCHC 34.5 g/dl (32.0-36.0); MEAN CELL VOLUME 86.6 fl (80-96); MEAN PLT VOLUME 6.8 fl (7.5-11.1); NEUT % 60.5 % (42.8-82.8); PLATELET COUNT 213 10^3/uL (134-434); RBC 3.18 M/mm3 (3.60-5.2); RDW 16.1 % (11.6-15.6); WHITE BLOOD COUNT 6.4 K/mm3 (4.0-10.0)
[2022-08-17 07:31] LABS: POTASSIUM 3.7 mmol/L (3.5-5.1)
[2022-08-17 07:33] LABS: CALCIUM 8.1 mg/dL (8.5-10.1)
[2022-08-17 07:34] LABS: ALBUMIN 1.3 g/dl (3.4-5.0); BLOOD UREA NITROGEN 14.6 mg/dL (7-18); MAGNESIUM 1.8 mg/dL (1.8-2.4)
[2022-08-17 07:37] LABS: PHOSPHOROUS 2.3 mg/dL (2.5-4.9)
[2022-08-17 07:38] LABS: BILIRUBIN,TOTAL 0.4 mg/dL (0.2-1)
[2022-08-17 07:39] LABS: TOT PROT 4.3 g/dl (6.4-8.2)
[2022-08-17] MEDS: ALBUTEROL SO4 2.5/IPRATROPIUM 0.5 INH SOL 3 ML VIAL.NEB. NEB SCH ×2 (09:05→20:35)
[2022-08-17] MEDS: MULTIVITAMINS (DAILY MVI) TABLET (FP) PO SCH (09:54)
[2022-08-17] MEDS: FAMOTIDINE 10 MG TABLET PO SCH (09:54)
[2022-08-17] MEDS: FOLIC ACID 1 MG TABLET (FP) PO SCH (09:54)
[2022-08-17] MEDS: ANASTROZOLE 1 MG TABLET PO SCH (09:55)
[2022-08-17] MEDS: FENOFIBRIC ACID 135 MG CAP PO SCH (09:56)
[2022-08-17] MEDS: ASCORBIC ACID 250 MG TABLET (FP) PO SCH (09:58)
[2022-08-17] MEDS: MUPIROCIN 2% TOPICAL OINTMENT FOR DECOLONIZATION NS SCH ×2 (09:59→21:21)
[2022-08-17] MEDS ORDERED: ACETAMINOPHEN 1000 MG/100 ML BAG IVPB ONE (10:49)
[2022-08-17] MEDS ORDERED: POTASSIUM PHOSPHATE 15 MM in SODIUM CHLORIDE 100 ML IVPB ONE (14:43)
[2022-08-17] MEDS ORDERED: INSULIN (NOVOLOG) ASPART 100 UNITS/ML 10ML VIAL ONE ×2 (21:15→21:50)
[2022-08-17] MEDS: MIRTAZAPINE 15 MG TABLET (FP) PO SCH (21:21)
[2022-08-17] MEDS: CHLORHEXIDINE GLUCONATE 4% CLEANSER FOR DECOLONIZATION TP SCH (21:22)
[2022-08-18] MEDS: VANCOMYCIN ORAL SOLUTION 125 MG/2.5 ML PO SCH ×4 (00:31→17:49)
[2022-08-18] MEDS: VANCOMYCIN/WATER FOR INJ (PEG) 1,000 MG/200 ML BAG IVPB SCH ×2 (00:31→12:53)
[2022-08-18] MEDS: MIDODRINE HCL 5 MG TABLET PO SCH ×3 (01:17→17:49)
[2022-08-18] MEDS: MEROPENEM 1 GM in DEXTROSE 5%-WATER 100 ML IVPB SCH ×3 (01:17→17:49)
[2022-08-18] MEDS: NOREPINEPHRINE BITARTRATE/D5W 8 MG/250 ML BAG IVPB SCH (05:38)
[2022-08-18] MEDS: HEPARIN NA (PORCINE) 5,000 UNITS/ML 1ML VIAL SQ SCH ×2 (05:38→15:24)
[2022-08-18] MEDS: NYSTATIN POWDER 100,000 UNITS/GM - 15 GM TOPICAL POWDER TP SCH ×3 (05:39→21:47)
[2022-08-18] MEDS: LEVOTHYROXINE NA 50 MCG TABLET (FP) PO SCH (06:41)
[2022-08-18] MEDS: INSULIN SLIDING SCALE (NOVOLOG) 1 VIAL SQ SCH ×4 (06:41→21:47)
[2022-08-18 06:53] LABS: HEMATOCRIT 27.8 % (32.4-45.2); HEMOGLOBIN 9.6 GM/dL (10.7-15.3); MCH 29.9 pg (25.7-33.7); MCHC 34.5 g/dl (32.0-36.0); MEAN CELL VOLUME 86.6 fl (80-96); PLATELET COUNT 228 10^3/uL (134-434); RBC 3.21 M/mm3 (3.60-5.2); RDW 16.2 % (11.6-15.6); WHITE BLOOD COUNT 5.6 K/mm3 (4.0-10.0)
[2022-08-18 07:14] LABS: POTASSIUM 3.9 mmol/L (3.5-5.1)
[2022-08-18 07:22] LABS: ALBUMIN 1.3 g/dl (3.4-5.0); CALCIUM 7.7 mg/dL (8.5-10.1)
[2022-08-18 07:24] LABS: BLOOD UREA NITROGEN 15.6 mg/dL (7-18); MAGNESIUM 1.7 mg/dL (1.8-2.4)
[2022-08-18 07:25] LABS: PHOSPHOROUS 2.6 mg/dL (2.5-4.9)
[2022-08-18] MEDS ORDERED: MAGNESIUM 1GM/D5W - 1 GM/100 ML IVPB IVPB ONE (07:25)
[2022-08-18 07:26] LABS: CREATININE 1.1 mg/dL (0.55-1.3)
[2022-08-18 07:28] LABS: BILIRUBIN,TOTAL 0.5 mg/dL (0.2-1); TOT PROT 4.4 g/dl (6.4-8.2)
[2022-08-18] MEDS ORDERED: METOPROLOL TARTRATE 5 MG/5 ML VIAL IVPUSH ONE (09:37)
[2022-08-18] MEDS: FOLIC ACID 1 MG TABLET (FP) PO SCH (09:51)
[2022-08-18] MEDS: MULTIVITAMINS (DAILY MVI) TABLET (FP) PO SCH (09:51)
[2022-08-18] MEDS: ASCORBIC ACID 250 MG TABLET (FP) PO SCH (09:51)
[2022-08-18] MEDS: FENOFIBRIC ACID 135 MG CAP PO SCH (09:52)
[2022-08-18] MEDS: FAMOTIDINE 10 MG TABLET PO SCH (09:52)
[2022-08-18] MEDS: ANASTROZOLE 1 MG TABLET PO SCH (09:52)
[2022-08-18] MEDS ORDERED: METOPROLOL TARTRATE 5 MG/5 ML VIAL IVPUSH PRN (11:11)
[2022-08-18] MEDS: MUPIROCIN 2% TOPICAL OINTMENT FOR DECOLONIZATION NS SCH (12:54)
[2022-08-18] MEDS: LACTATED RINGERS SOLUTION 1,000 ML/1,000 ML INFUS.BAG IV SCH (19:34)
[2022-08-18] MEDS: CHLORHEXIDINE GLUCONATE 4% CLEANSER FOR DECOLONIZATION TP SCH (21:47)
[2022-08-18] MEDS: AMIODARONE HCL 200 MG TABLET PO SCH (21:47)
[2022-08-18] MEDS: MIRTAZAPINE 15 MG TABLET (FP) PO SCH (21:47)
[2022-08-18] MEDS: APIXABAN 5 MG TABLET PO SCH (21:47)
[2022-08-18] MEDS ORDERED: APIXABAN 5 MG TABLET PO SCH (22:00)
[2022-08-19] MEDS: VANCOMYCIN ORAL SOLUTION 125 MG/2.5 ML PO SCH ×5 (02:06→23:10)
[2022-08-19] MEDS: MEROPENEM 1 GM in DEXTROSE 5%-WATER 100 ML IVPB SCH ×3 (02:19→17:57)
[2022-08-19] MEDS: MIDODRINE HCL 5 MG TABLET PO SCH ×3 (02:19→18:00)
[2022-08-19] MEDS: INSULIN SLIDING SCALE (NOVOLOG) 1 VIAL SQ SCH ×4 (06:09→21:17)
[2022-08-19] MEDS: NYSTATIN POWDER 100,000 UNITS/GM - 15 GM TOPICAL POWDER TP SCH ×3 (06:09→21:16)
[2022-08-19] MEDS: AMIODARONE HCL 200 MG TABLET PO SCH ×3 (06:09→21:16)
[2022-08-19] MEDS: LEVOTHYROXINE NA 50 MCG TABLET (FP) PO SCH (06:09)
[2022-08-19] MEDS: LACTATED RINGERS SOLUTION 1,000 ML/1,000 ML INFUS.BAG IV SCH ×2 (06:10→19:30)
[2022-08-19 07:17] LABS: HEMATOCRIT 28.1 % (32.4-45.2); HEMOGLOBIN 9.8 GM/dL (10.7-15.3); MCH 29.8 pg (25.7-33.7); MCHC 34.8 g/dl (32.0-36.0); MEAN CELL VOLUME 85.8 fl (80-96); PLATELET COUNT 207 10^3/uL (134-434); RBC 3.28 M/mm3 (3.60-5.2); RDW 15.7 % (11.6-15.6)
[2022-08-19 07:58] LABS: ALBUMIN 1.4 g/dl (3.4-5.0); BLOOD UREA NITROGEN 13.1 mg/dL (7-18); CALCIUM 7.5 mg/dL (8.5-10.1); MAGNESIUM 1.6 mg/dL (1.8-2.4)
[2022-08-19 08:01] LABS: CREATININE 0.7 mg/dL (0.55-1.3); PHOSPHOROUS 1.9 mg/dL (2.5-4.9)
[2022-08-19 08:03] LABS: BILIRUBIN,TOTAL 0.5 mg/dL (0.2-1); TOT PROT 4.4 g/dl (6.4-8.2)
[2022-08-19] MEDS ORDERED: MAGNESIUM 1GM/D5W 100ML - 100 ML IVPB IVPB ONE (08:45)
[2022-08-19] MEDS: MULTIVITAMINS (DAILY MVI) TABLET (FP) PO SCH (09:36)
[2022-08-19] MEDS: FOLIC ACID 1 MG TABLET (FP) PO SCH (09:37)
[2022-08-19] MEDS: ASCORBIC ACID 250 MG TABLET (FP) PO SCH (09:37)
[2022-08-19] MEDS: APIXABAN 5 MG TABLET PO SCH ×2 (09:37→21:16)
[2022-08-19] MEDS: FAMOTIDINE 10 MG TABLET PO SCH (09:37)
[2022-08-19] MEDS: ANASTROZOLE 1 MG TABLET PO SCH (09:38)
[2022-08-19] MEDS: FENOFIBRIC ACID 135 MG CAP PO SCH (09:38)
[2022-08-19] MEDS ORDERED: METOPROLOL TARTRATE 5 MG/5 ML VIAL IVPUSH ONE (11:00)
[2022-08-19] MEDS: NAPH,MB-DB/K PH,MBDB POWDER PACKET PO SCH (11:43)
[2022-08-19] MEDS ORDERED: INSULIN (NOVOLOG) ASPART 100 UNITS/ML 10ML VIAL ONE ×2 (11:50→20:45)
[2022-08-19] MEDS: VASOPRESSIN 40 UNITS/100 ML BAG IV SCH (12:43)
[2022-08-19 14:45] VITALS: BMI 27.1
[2022-08-19] MEDS: AMINO ACIDS/PROTEIN HYDROLYS 30 ML LIQUID.PKT PO SCH (17:59)
[2022-08-19] MEDS: MIRTAZAPINE 15 MG TABLET (FP) PO SCH (21:16)
[2022-08-19] MEDS: CHLORHEXIDINE GLUCONATE 4% CLEANSER FOR DECOLONIZATION TP SCH (21:16)
[2022-08-20] MEDS: MEROPENEM 1 GM in DEXTROSE 5%-WATER 100 ML IVPB SCH ×3 (02:15→17:45)
[2022-08-20] MEDS: MIDODRINE HCL 5 MG TABLET PO SCH ×3 (02:16→17:45)
[2022-08-20] MEDS ORDERED: INSULIN (NOVOLOG) ASPART 100 UNITS/ML 10ML VIAL ONE ×3 (05:55→16:42)
[2022-08-20] MEDS: INSULIN SLIDING SCALE (NOVOLOG) 1 VIAL SQ SCH ×4 (06:02→21:15)
[2022-08-20] MEDS: NYSTATIN POWDER 100,000 UNITS/GM - 15 GM TOPICAL POWDER TP SCH ×3 (06:03→21:15)
[2022-08-20] MEDS: LEVOTHYROXINE NA 50 MCG TABLET (FP) PO SCH (06:03)
[2022-08-20] MEDS: VANCOMYCIN ORAL SOLUTION 125 MG/2.5 ML PO SCH ×4 (06:03→23:54)
[2022-08-20] MEDS: AMIODARONE HCL 200 MG TABLET PO SCH ×3 (06:03→21:15)
[2022-08-20 06:29] LABS: BASO % 0.5 % (0-2.0); EOS % 3.7 % (0-4.5); HEMATOCRIT 25.7 % (32.4-45.2); HEMOGLOBIN 9.1 GM/dL (10.7-15.3); LYMPH % 47.7 % (8-40); MCH 30.4 pg (25.7-33.7); MCHC 35.3 g/dl (32.0-36.0); MEAN CELL VOLUME 86.3 fl (80-96); MEAN PLT VOLUME 7.4 fl (7.5-11.1); MONO % 6.9 % (3.8-10.2); NEUT % 41.2 % (42.8-82.8); PLATELET COUNT 183 10^3/uL (134-434); RBC 2.98 M/mm3 (3.60-5.2); RDW 15.4 % (11.6-15.6); WHITE BLOOD COUNT 5.9 K/mm3 (4.0-10.0)
[2022-08-20 06:49] LABS: POTASSIUM 3.9 mmol/L (3.5-5.1)
[2022-08-20 06:54] LABS: CALCIUM 7.5 mg/dL (8.5-10.1)
[2022-08-20 06:55] LABS: ALBUMIN 1.4 g/dl (3.4-5.0); BLOOD UREA NITROGEN 12.1 mg/dL (7-18); MAGNESIUM 1.5 mg/dL (1.8-2.4)
[2022-08-20 06:57] LABS: CREATININE 0.7 mg/dL (0.55-1.3); PHOSPHOROUS 2.5 mg/dL (2.5-4.9)
[2022-08-20 06:59] LABS: BILIRUBIN,TOTAL 0.8 mg/dL (0.2-1); TOT PROT 4.5 g/dl (6.4-8.2)
[2022-08-20] MEDS ORDERED: MAGNESIUM SULFATE IN WATER 2 GM/50 ML IVPB IVPB ONE (07:30)
[2022-08-20] MEDS ORDERED: POTASSIUM PHOSPHATE 15 MM in SODIUM CHLORIDE 250 ML IVPB ONE (07:53)
[2022-08-20] MEDS: FENOFIBRIC ACID 135 MG CAP PO SCH (09:38)
[2022-08-20] MEDS: NAPH,MB-DB/K PH,MBDB POWDER PACKET PO SCH (09:38)
[2022-08-20] MEDS: ANASTROZOLE 1 MG TABLET PO SCH (09:38)
[2022-08-20] MEDS: FAMOTIDINE 10 MG TABLET PO SCH (09:39)
[2022-08-20] MEDS: FOLIC ACID 1 MG TABLET (FP) PO SCH (09:39)
[2022-08-20] MEDS: ASCORBIC ACID 250 MG TABLET (FP) PO SCH (09:39)
[2022-08-20] MEDS: AMINO ACIDS/PROTEIN HYDROLYS 30 ML LIQUID.PKT PO SCH ×2 (09:40→17:45)
[2022-08-20] MEDS: DIGOXIN 0.5 MG/2 ML AMPUL IVPUSH SCH ×3 (09:50→20:03)
[2022-08-20] MEDS: APIXABAN 5 MG TABLET PO SCH ×2 (09:59→21:14)
[2022-08-20] MEDS: MULTIVITAMINS (DAILY MVI) TABLET (FP) PO SCH (10:00)
[2022-08-20] MEDS: VASOPRESSIN 40 UNITS/100 ML BAG IV SCH (16:40)
[2022-08-20] MEDS: LACTATED RINGERS SOLUTION 1,000 ML/1,000 ML INFUS.BAG IV SCH (17:45)
[2022-08-20] MEDS: PHENYLEPHRINE NS PREMIX 50,000 MCG/500 ML BAG CVP SCH (19:55)
[2022-08-20] MEDS: CHLORHEXIDINE GLUCONATE 4% CLEANSER FOR DECOLONIZATION TP SCH (21:15)
[2022-08-20] MEDS: MIRTAZAPINE 15 MG TABLET (FP) PO SCH (21:15)
[2022-08-21] MEDS: MEROPENEM 1 GM in DEXTROSE 5%-WATER 100 ML IVPB SCH ×2 (01:26→09:40)
[2022-08-21] MEDS: MIDODRINE HCL 5 MG TABLET PO SCH ×3 (02:19→17:07)
[2022-08-21] MEDS: DIGOXIN 0.5 MG/2 ML AMPUL IVPUSH SCH (02:19)
[2022-08-21] MEDS: AMIODARONE HCL 200 MG TABLET PO SCH ×3 (06:14→21:21)
[2022-08-21] MEDS: LEVOTHYROXINE NA 50 MCG TABLET (FP) PO SCH (06:14)
[2022-08-21] MEDS: INSULIN SLIDING SCALE (NOVOLOG) 1 VIAL SQ SCH ×4 (06:14→21:23)
[2022-08-21] MEDS: VANCOMYCIN ORAL SOLUTION 125 MG/2.5 ML PO SCH ×3 (06:17→17:06)
[2022-08-21] MEDS: NYSTATIN POWDER 100,000 UNITS/GM - 15 GM TOPICAL POWDER TP SCH ×3 (06:17→21:22)
[2022-08-21 07:30] LABS: HEMATOCRIT 26.7 % (32.4-45.2); HEMOGLOBIN 9.4 GM/dL (10.7-15.3); MCH 30.5 pg (25.7-33.7); MCHC 35.4 g/dl (32.0-36.0); MEAN CELL VOLUME 86.3 fl (80-96); MEAN PLT VOLUME 7.4 fl (7.5-11.1); PLATELET COUNT 370 10^3/uL (134-434); RBC 3.09 M/mm3 (3.60-5.2); RDW 15.6 % (11.6-15.6); WHITE BLOOD COUNT 9.3 K/mm3 (4.0-10.0)
[2022-08-21 07:43] LABS: POTASSIUM 4.5 mmol/L (3.5-5.1)
[2022-08-21 07:48] LABS: BLOOD UREA NITROGEN 11.7 mg/dL (7-18)
[2022-08-21 07:49] LABS: MAGNESIUM 1.5 mg/dL (1.8-2.4)
[2022-08-21 07:51] LABS: CALCIUM 7.6 mg/dL (8.5-10.1); CREATININE 0.6 mg/dL (0.55-1.3); PHOSPHOROUS 2.9 mg/dL (2.5-4.9)
[2022-08-21] MEDS ORDERED: MAGNESIUM SULF 50% (8.12 MEQ/2 ML-1 GM VIAL) IVPB ONE (09:00)
[2022-08-21] MEDS: LACTATED RINGERS SOLUTION 1,000 ML/1,000 ML INFUS.BAG IV SCH ×2 (09:37→21:28)
[2022-08-21] MEDS: AMINO ACIDS/PROTEIN HYDROLYS 30 ML LIQUID.PKT PO SCH ×2 (09:38→17:06)
[2022-08-21] MEDS: APIXABAN 5 MG TABLET PO SCH ×2 (09:39→21:21)
[2022-08-21] MEDS: FAMOTIDINE 10 MG TABLET PO SCH (09:39)
[2022-08-21] MEDS: ANASTROZOLE 1 MG TABLET PO SCH (09:39)
[2022-08-21] MEDS: MULTIVITAMINS (DAILY MVI) TABLET (FP) PO SCH (09:40)
[2022-08-21] MEDS: FOLIC ACID 1 MG TABLET (FP) PO SCH (09:40)
[2022-08-21] MEDS: NAPH,MB-DB/K PH,MBDB POWDER PACKET PO SCH (09:40)
[2022-08-21] MEDS: ASCORBIC ACID 250 MG TABLET (FP) PO SCH (09:41)
[2022-08-21] MEDS: FENOFIBRIC ACID 135 MG CAP PO SCH (09:41)
[2022-08-21] MEDS: PHENYLEPHRINE NS PREMIX 50,000 MCG/500 ML BAG CVP SCH ×2 (09:58→21:27)
[2022-08-21] MEDS ORDERED: INSULIN (NOVOLOG) ASPART 100 UNITS/ML 10ML VIAL ONE (10:33)
[2022-08-21] MEDS ORDERED: DIGOXIN 0.125 MG TABLET PO SCH (11:00)
[2022-08-21] MEDS ORDERED: METOPROLOL TARTRATE 25 MG TABLET (FP) PO SCH (11:00)
[2022-08-21] MEDS: VASOPRESSIN 40 UNITS/100 ML BAG IV SCH (11:27)
[2022-08-21] MEDS: METOPROLOL TARTRATE 25 MG TABLET (FP) PO SCH ×2 (20:22→20:52)
[2022-08-21] MEDS: MIRTAZAPINE 15 MG TABLET (FP) PO SCH (21:20)
[2022-08-21] MEDS: CHLORHEXIDINE GLUCONATE 4% CLEANSER FOR DECOLONIZATION TP SCH (21:21)
[2022-08-22] MEDS: VANCOMYCIN ORAL SOLUTION 125 MG/2.5 ML PO SCH ×4 (00:13→17:36)
[2022-08-22] MEDS: MIDODRINE HCL 5 MG TABLET PO SCH ×3 (02:14→17:36)
[2022-08-22] MEDS: AMIODARONE HCL 200 MG TABLET PO SCH ×3 (06:05→21:41)
[2022-08-22] MEDS: LEVOTHYROXINE NA 50 MCG TABLET (FP) PO SCH (06:05)
[2022-08-22] MEDS: INSULIN SLIDING SCALE (NOVOLOG) 1 VIAL SQ SCH ×4 (06:06→22:03)
[2022-08-22] MEDS: NYSTATIN POWDER 100,000 UNITS/GM - 15 GM TOPICAL POWDER TP SCH ×3 (06:06→21:43)
[2022-08-22 07:59] LABS: BASO % 0.6 % (0-2.0); HEMATOCRIT 25.5 % (32.4-45.2); HEMOGLOBIN 8.9 GM/dL (10.7-15.3); LYMPH % 41.7 % (8-40); MCH 30.4 pg (25.7-33.7); MCHC 34.9 g/dl (32.0-36.0); MEAN CELL VOLUME 87.2 fl (80-96); MEAN PLT VOLUME 7.3 fl (7.5-11.1); MONO % 6.5 % (3.8-10.2); NEUT % 46.2 % (42.8-82.8); PLATELET COUNT 317 10^3/uL (134-434); RBC 2.93 M/mm3 (3.60-5.2); RDW 15.8 % (11.6-15.6); WHITE BLOOD COUNT 7.5 K/mm3 (4.0-10.0)
[2022-08-22 08:10] LABS: CALCIUM 7.5 mg/dL (8.5-10.1)
[2022-08-22 08:11] LABS: ALBUMIN 1.3 g/dl (3.4-5.0); MAGNESIUM 1.8 mg/dL (1.8-2.4)
[2022-08-22 08:14] LABS: CREATININE 0.5 mg/dL (0.55-1.3)
[2022-08-22 08:16] LABS: TOT PROT 4.6 g/dl (6.4-8.2)
[2022-08-22 08:23] LABS: BILIRUBIN,TOTAL 0.3 mg/dL (0.2-1)
[2022-08-22] MEDS: FAMOTIDINE 10 MG TABLET PO SCH (09:18)
[2022-08-22] MEDS: MULTIVITAMINS (DAILY MVI) TABLET (FP) PO SCH (09:18)
[2022-08-22] MEDS: FOLIC ACID 1 MG TABLET (FP) PO SCH (09:18)
[2022-08-22] MEDS: AMINO ACIDS/PROTEIN HYDROLYS 30 ML LIQUID.PKT PO SCH ×2 (09:18→17:36)
[2022-08-22] MEDS: ASCORBIC ACID 250 MG TABLET (FP) PO SCH (09:19)
[2022-08-22] MEDS: APIXABAN 5 MG TABLET PO SCH ×2 (09:19→21:41)
[2022-08-22] MEDS: METOPROLOL TARTRATE 25 MG TABLET (FP) PO SCH ×2 (09:19→21:42)
[2022-08-22] MEDS: FENOFIBRIC ACID 135 MG CAP PO SCH (09:21)
[2022-08-22] MEDS: NAPH,MB-DB/K PH,MBDB POWDER PACKET PO SCH (09:21)
[2022-08-22] MEDS: ANASTROZOLE 1 MG TABLET PO SCH (09:21)
[2022-08-22] MEDS ORDERED: INSULIN (NOVOLOG) ASPART 100 UNITS/ML 10ML VIAL ONE (10:13)
[2022-08-22] MEDS: VASOPRESSIN 40 UNITS/100 ML BAG IV SCH (16:31)
[2022-08-22] MEDS: PHENYLEPHRINE NS PREMIX 50,000 MCG/500 ML BAG CVP SCH (20:30)
[2022-08-22] MEDS: LACTATED RINGERS SOLUTION 1,000 ML/1,000 ML INFUS.BAG IV SCH (21:39)
[2022-08-22] MEDS: MIRTAZAPINE 15 MG TABLET (FP) PO SCH (21:42)
[2022-08-22] MEDS: CHLORHEXIDINE GLUCONATE 4% CLEANSER FOR DECOLONIZATION TP SCH (21:42)
[2022-08-22] MEDS: ACETAMINOPHEN 500 MG TABLET (FP) PO PRN (22:58)
[2022-08-23] MEDS: VANCOMYCIN ORAL SOLUTION 125 MG/2.5 ML PO SCH ×4 (00:34→17:07)
[2022-08-23] MEDS: MIDODRINE HCL 5 MG TABLET PO SCH ×3 (01:34→17:07)
[2022-08-23] MEDS: LEVOTHYROXINE NA 50 MCG TABLET (FP) PO SCH (06:13)
[2022-08-23] MEDS: AMIODARONE HCL 200 MG TABLET PO SCH ×3 (06:13→22:22)
[2022-08-23] MEDS: NYSTATIN POWDER 100,000 UNITS/GM - 15 GM TOPICAL POWDER TP SCH ×3 (06:14→22:22)
[2022-08-23] MEDS: INSULIN SLIDING SCALE (NOVOLOG) 1 VIAL SQ SCH ×4 (06:21→22:33)
[2022-08-23 07:53] LABS: HEMATOCRIT 25.9 % (32.4-45.2); HEMOGLOBIN 9.1 GM/dL (10.7-15.3); MCH 30.9 pg (25.7-33.7); MCHC 35.1 g/dl (32.0-36.0); MEAN PLT VOLUME 7.3 fl (7.5-11.1); PLATELET COUNT 384 10^3/uL (134-434); RBC 2.94 M/mm3 (3.60-5.2); RDW 16.2 % (11.6-15.6); WHITE BLOOD COUNT 8.9 K/mm3 (4.0-10.0)
[2022-08-23 08:19] LABS: POTASSIUM 5.2 mmol/L (3.5-5.1)
[2022-08-23 08:21] LABS: BLOOD UREA NITROGEN 14.7 mg/dL (7-18); CALCIUM 7.5 mg/dL (8.5-10.1); MAGNESIUM 1.6 mg/dL (1.8-2.4)
[2022-08-23 08:24] LABS: PHOSPHOROUS 2.7 mg/dL (2.5-4.9)
[2022-08-23 08:25] LABS: CREATININE 0.6 mg/dL (0.55-1.3)
[2022-08-23] MEDS ORDERED: MAGNESIUM 1GM/D5W - 1 GM/100 ML IVPB IVPB ONE (09:29)
[2022-08-23] MEDS ORDERED: LACTATED RINGERS SOLUTION 1,000 ML/1,000 ML INFUS.BAG IV SCH (09:31)
[2022-08-23] MEDS: FENOFIBRIC ACID 135 MG CAP PO SCH (09:41)
[2022-08-23] MEDS: ANASTROZOLE 1 MG TABLET PO SCH (09:41)
[2022-08-23] MEDS: APIXABAN 5 MG TABLET PO SCH ×2 (09:43→22:18)
[2022-08-23] MEDS: METOPROLOL TARTRATE 25 MG TABLET (FP) PO SCH ×2 (09:43→22:19)
[2022-08-23] MEDS: FAMOTIDINE 10 MG TABLET PO SCH (09:43)
[2022-08-23] MEDS: MULTIVITAMINS (DAILY MVI) TABLET (FP) PO SCH (09:43)
[2022-08-23] MEDS: ASCORBIC ACID 250 MG TABLET (FP) PO SCH (09:43)
[2022-08-23] MEDS: FOLIC ACID 1 MG TABLET (FP) PO SCH (09:45)
[2022-08-23] MEDS ORDERED: SODIUM ZIRCONIUM CYCLOSILICATE (LOKELMA) 5 GM PACKET PO ONE (10:00)
[2022-08-23] MEDS: ACETAMINOPHEN 500 MG TABLET (FP) PO PRN (12:48)
[2022-08-23] MEDS: AMINO ACIDS/PROTEIN HYDROLYS 30 ML LIQUID.PKT PO SCH (13:52)
[2022-08-23] MEDS: MIRTAZAPINE 15 MG TABLET (FP) PO SCH (22:19)
[2022-08-23] MEDS: CHLORHEXIDINE GLUCONATE 4% CLEANSER FOR DECOLONIZATION TP SCH (23:38)
[2022-08-24] MEDS: VANCOMYCIN ORAL SOLUTION 125 MG/2.5 ML PO SCH ×4 (00:01→17:10)
[2022-08-24] MEDS: MIDODRINE HCL 5 MG TABLET PO SCH ×3 (02:01→17:10)
[2022-08-24] MEDS: AMIODARONE HCL 200 MG TABLET PO SCH ×3 (06:21→21:11)
[2022-08-24] MEDS: LEVOTHYROXINE NA 50 MCG TABLET (FP) PO SCH (06:21)
[2022-08-24] MEDS: NYSTATIN POWDER 100,000 UNITS/GM - 15 GM TOPICAL POWDER TP SCH ×3 (06:21→21:13)
[2022-08-24] MEDS: INSULIN SLIDING SCALE (NOVOLOG) 1 VIAL SQ SCH ×4 (06:28→21:24)
[2022-08-24] MEDS: METOPROLOL TARTRATE 25 MG TABLET (FP) PO SCH ×2 (10:09→21:09)
[2022-08-24] MEDS: FAMOTIDINE 10 MG TABLET PO SCH (10:10)
[2022-08-24] MEDS: FOLIC ACID 1 MG TABLET (FP) PO SCH (10:10)
[2022-08-24] MEDS: MULTIVITAMINS (DAILY MVI) TABLET (FP) PO SCH (10:10)
[2022-08-24] MEDS: ASCORBIC ACID 250 MG TABLET (FP) PO SCH (10:11)
[2022-08-24] MEDS: FENOFIBRIC ACID 135 MG CAP PO SCH (10:11)
[2022-08-24] MEDS: APIXABAN 5 MG TABLET PO SCH ×2 (10:11→21:11)
[2022-08-24] MEDS: ANASTROZOLE 1 MG TABLET PO SCH (10:11)
[2022-08-24] MEDS ORDERED: SODIUM ZIRCONIUM CYCLOSILICATE (LOKELMA) 5 GM PACKET PO SCH (10:45)
[2022-08-24] MEDS: MIRTAZAPINE 15 MG TABLET (FP) PO SCH (21:11)
[2022-08-25] MEDS: VANCOMYCIN ORAL SOLUTION 125 MG/2.5 ML PO SCH ×4 (00:17→17:24)
[2022-08-25] MEDS: MIDODRINE HCL 5 MG TABLET PO SCH ×3 (01:01→17:23)
[2022-08-25] MEDS: LEVOTHYROXINE NA 50 MCG TABLET (FP) PO SCH (06:14)
[2022-08-25] MEDS: AMIODARONE HCL 200 MG TABLET PO SCH ×3 (06:14→22:04)
[2022-08-25] MEDS: NYSTATIN POWDER 100,000 UNITS/GM - 15 GM TOPICAL POWDER TP SCH ×3 (06:15→22:06)
[2022-08-25] MEDS: INSULIN SLIDING SCALE (NOVOLOG) 1 VIAL SQ SCH ×4 (06:19→22:15)
[2022-08-25 06:41] LABS: BASO % 1.4 % (0-2.0); EOS % 3.2 % (0-4.5); HEMATOCRIT 25.8 % (32.4-45.2); HEMOGLOBIN 8.9 GM/dL (10.7-15.3); LYMPH % 38.7 % (8-40); MCH 30.5 pg (25.7-33.7); MCHC 34.6 g/dl (32.0-36.0); MEAN CELL VOLUME 88.1 fl (80-96); MEAN PLT VOLUME 7.1 fl (7.5-11.1); NEUT % 50.7 % (42.8-82.8); PLATELET COUNT 458 10^3/uL (134-434); RBC 2.93 M/mm3 (3.60-5.2); RDW 16.4 % (11.6-15.6); WHITE BLOOD COUNT 8.6 K/mm3 (4.0-10.0)
[2022-08-25 07:14] LABS: POTASSIUM 4.7 mmol/L (3.5-5.1)
[2022-08-25 07:17] LABS: ALBUMIN 1.4 g/dl (3.4-5.0); BLOOD UREA NITROGEN 13.8 mg/dL (7-18); CALCIUM 7.8 mg/dL (8.5-10.1); MAGNESIUM 1.5 mg/dL (1.8-2.4)
[2022-08-25 07:20] LABS: CREATININE 0.7 mg/dL (0.55-1.3)
[2022-08-25 07:22] LABS: TOT PROT 4.6 g/dl (6.4-8.2)
[2022-08-25 07:33] LABS: BILIRUBIN,TOTAL 0.4 mg/dL (0.2-1)
[2022-08-25] MEDS ORDERED: ACETAMINOPHEN 500 MG TABLET (FP) PO PRN (09:14)
[2022-08-25] MEDS ORDERED: ONDANSETRON 4 MG TABLET PO PRN (09:14)
[2022-08-25] MEDS ORDERED: ASCORBIC ACID 250 MG TABLET (FP) PO SCH (10:00)
[2022-08-25] MEDS: FENOFIBRIC ACID 135 MG CAP PO SCH (10:04)
[2022-08-25] MEDS: ASCORBIC ACID 500 MG TABLET (FP) PO SCH (10:05)
[2022-08-25] MEDS: MAGNESIUM OXIDE 400 MG TABLET (FP) PO SCH ×2 (10:06→22:04)
[2022-08-25] MEDS: FAMOTIDINE 10 MG TABLET PO SCH (10:06)
[2022-08-25] MEDS: FOLIC ACID 1 MG TABLET (FP) PO SCH (10:06)
[2022-08-25] MEDS: METOPROLOL TARTRATE 25 MG TABLET (FP) PO SCH ×2 (10:06→22:03)
[2022-08-25] MEDS: ANASTROZOLE 1 MG TABLET PO SCH (10:07)
[2022-08-25] MEDS: MULTIVITAMINS (DAILY MVI) TABLET (FP) PO SCH (10:07)
[2022-08-25] MEDS: APIXABAN 5 MG TABLET PO SCH ×2 (10:07→22:03)
[2022-08-25] MEDS ORDERED: MIRTAZAPINE 15 MG TABLET (FP) PO SCH (22:00)
[2022-08-26] MEDS: VANCOMYCIN ORAL SOLUTION 125 MG/2.5 ML PO SCH ×4 (00:04→17:04)
[2022-08-26] MEDS: MIDODRINE HCL 5 MG TABLET PO SCH ×3 (03:17→17:03)
[2022-08-26] MEDS: AMIODARONE HCL 200 MG TABLET PO SCH ×2 (05:47→13:14)
[2022-08-26] MEDS: NYSTATIN POWDER 100,000 UNITS/GM - 15 GM TOPICAL POWDER TP SCH ×2 (05:47→13:14)
[2022-08-26] MEDS: INSULIN SLIDING SCALE (NOVOLOG) 1 VIAL SQ SCH ×3 (06:15→16:27)
[2022-08-26 06:52] LABS: BASO % 1.2 % (0-2.0); EOS % 2.4 % (0-4.5); HEMATOCRIT 27.1 % (32.4-45.2); HEMOGLOBIN 9.2 GM/dL (10.7-15.3); LYMPH % 42.9 % (8-40); MCH 30.4 pg (25.7-33.7); MEAN CELL VOLUME 89.5 fl (80-96); MEAN PLT VOLUME 7.3 fl (7.5-11.1); MONO % 6.8 % (3.8-10.2); NEUT % 46.7 % (42.8-82.8); PLATELET COUNT 437 10^3/uL (134-434); RBC 3.02 M/mm3 (3.60-5.2); RDW 16.4 % (11.6-15.6); WHITE BLOOD COUNT 7.6 K/mm3 (4.0-10.0)
[2022-08-26] MEDS ORDERED: LEVOTHYROXINE NA 50 MCG TABLET (FP) PO SCH (07:00)
[2022-08-26 07:17] LABS: POTASSIUM 5.4 mmol/L (3.5-5.1)
[2022-08-26 07:19] LABS: ALBUMIN 1.5 g/dl (3.4-5.0)
[2022-08-26 07:20] LABS: BLOOD UREA NITROGEN 15.9 mg/dL (7-18); MAGNESIUM 1.6 mg/dL (1.8-2.4)
[2022-08-26 07:23] LABS: CREATININE 0.7 mg/dL (0.55-1.3)
[2022-08-26 07:24] LABS: BILIRUBIN,TOTAL 0.3 mg/dL (0.2-1)
[2022-08-26] MEDS ORDERED: MAGNESIUM OXIDE 400 MG TABLET (FP) PO SCH (10:00)
[2022-08-26] MEDS ORDERED: APIXABAN 5 MG TABLET PO SCH ×2 (10:00)
[2022-08-26] MEDS ORDERED: SODIUM ZIRCONIUM CYCLOSILICATE (LOKELMA) 5 GM PACKET PO SCH (10:00)
[2022-08-26] MEDS: MULTIVITAMINS (DAILY MVI) TABLET (FP) PO SCH (10:20)
[2022-08-26] MEDS: METOPROLOL TARTRATE 25 MG TABLET (FP) PO SCH (10:21)
[2022-08-26] MEDS: FOLIC ACID 1 MG TABLET (FP) PO SCH (10:22)
[2022-08-26] MEDS: FAMOTIDINE 10 MG TABLET PO SCH (10:22)
[2022-08-26] MEDS: ASCORBIC ACID 500 MG TABLET (FP) PO SCH (10:23)
[2022-08-26] MEDS: ANASTROZOLE 1 MG TABLET PO SCH (10:24)
[2022-08-26] MEDS: FENOFIBRIC ACID 135 MG CAP PO SCH (10:25)
[2022-08-26 18:38] VITALS: BP 125/52; PULSE 76; RESP 17; TEMP 98
[2022-08-27] MEDS ORDERED: AMIODARONE HCL 200 MG TABLET PO SCH ×2 (10:00)
== END 2022-08-26 19:27 | DRG 871 ==
LOC: JER 15:22 → JERBED 16:34 → JICU 20:23 → J4S 08-23 12:43
PROVIDERS: ADMIT Internal Medicine Pulmonary Disease; ATTEND Nurse Practitioner Acute Care
PROC: 05HM33Z Insertion of Infusion Device into Right Internal Jugular Vein, Percutaneous Approach (ICD-10-PCS; principal; 2022-08-13)
DX: A41.9 Sepsis, unspecified organism (principal); E43 Unspecified severe protein-calorie malnutrition; R65.21 Severe sepsis with septic shock; N17.9 Acute kidney failure, unspecified; I50.32 Chronic diastolic (congestive) heart failure; N39.0 Urinary tract infection, site not specified; K92.0 Hematemesis; I82.412 Acute embolism and thrombosis of left femoral vein; I25.10 Atherosclerotic heart disease of native coronary artery without angina pectoris; J44.9 Chronic obstructive pulmonary disease, unspecified; Z99.81 Dependence on supplemental oxygen; K21.9 Gastro-esophageal reflux disease without esophagitis; E03.9 Hypothyroidism, unspecified; I11.0 Hypertensive heart disease with heart failure; F03.90 Unspecified dementia, unspecified severity, without behavioral disturbance, psychotic disturbance, mood disturbance, and anxiety; E11.9 Type 2 diabetes mellitus without complications; Z79.4 Long term (current) use of insulin; E88.09 Other disorders of plasma-protein metabolism, not elsewhere classified; I48.0 Paroxysmal atrial fibrillation; Z68.27 Body mass index [BMI] 27.0-27.9, adult; D64.9 Anemia, unspecified; L89.152 Pressure ulcer of sacral region, stage 2; L30.4 Erythema intertrigo; R29.6 Repeated falls; E87.5 Hyperkalemia; R33.8 Other retention of urine
CPT/HCPCS: 0241U-QW; 36415; 71045-TC-FY; 74176-TC; 80048; 80053; 81003; 82272; 82308; 82607; 82728; 82746; 82803; 82962; 83036; 83540; 83550; 83605; 83690; 83735; 84100; 84439; 84443; 84484; 85025; 85027; 85610; 85730; 86140; 86850; 86900; 86901; 87040; 87045; 87046; 87077; 87081; 87086; 87186; 87324; 87449; 93005; 93010; 93306-TC; 93970-TC; 94640; 97161-GP; 99291; 99292; C9803-CS; J0878; J1644; J3490; U0003; U0005

== ENCOUNTER 2023-08-09 13:12 | Emergency (ER) | payer OTHER ==
[2023-08-09 13:30] VITALS: RESP 17; TEMP 98.2; BMI 29.1
[2023-08-09] MEDS ORDERED: ACETAMINOPHEN INJECTION 100 ML IVPB ONE (14:27)
[2023-08-09] MEDS: ACETAMINOPHEN 1000 MG/100 ML BAG IVPB ONE (14:44)
[2023-08-09 15:02] LABS: BASO % 0.7 % (0-2.0); HEMATOCRIT 33.7 % (32.4-45.2); HEMOGLOBIN 10.9 GM/dL (10.7-15.3); LYMPH % 33.1 % (8-40); MCH 26.8 pg (25.7-33.7); MCHC 32.4 g/dl (32.0-36.0); MEAN CELL VOLUME 82.7 fl (80-96); MEAN PLT VOLUME 7.6 fl (7.5-11.1); MONO % 5.7 % (3.8-10.2); NEUT % 58.5 % (42.8-82.8); PLATELET COUNT 216 10^3/uL (134-434); RBC 4.08 M/mm3 (3.60-5.2); WHITE BLOOD COUNT 6.9 K/mm3 (4.0-10.0)
[2023-08-09 15:15] LABS: INR 1.05 (0.83-1.09); PROTHROMBIN TIME (PATIENT) 11.9 SEC (9.7-13.0)
[2023-08-09 15:28] LABS: POTASSIUM 4.7 mmol/L (3.5-5.1)
[2023-08-09 15:30] LABS: BLOOD UREA NITROGEN 38.4 mg/dL (7-18); CALCIUM 9.1 mg/dL (8.5-10.1)
[2023-08-09 15:34] LABS: CREATININE 1.2 mg/dL (0.55-1.3)
[2023-08-09 15:35] LABS: BILIRUBIN,TOTAL 0.3 mg/dL (0.2-1); TOT PROT 7.2 g/dl (6.4-8.2)
[2023-08-09 17:02] VITALS: BP 102/56; PULSE 78
[2023-08-09] MEDS ORDERED: DALBAVANCIN HCL 500 MG VIAL (RESTRICTED TO ID ONLY) IVPB ONE (17:52)
[2023-08-09] MEDS: DALBAVANCIN HCL 1,500 MG in DEXTROSE 5%-WATER - 500 ML IVPB ONE (17:57)
[2023-08-09 19:51] LABS: PH,URINE 5.5 (5.0-8.0); URINE APPEARANCE CLOUDY; URINE BILIRUBIN NEGATIVE (NEGATIVE); URINE COLOR YELLOW; URINE GLUCOSE (UA) 2+ (NEGATIVE); URINE KETONE NEGATIVE (NEGATIVE); URINE LEUK ESTERASE 3+ (NEGATIVE); URINE NITRITE NEGATIVE (NEGATIVE); URINE PROTEIN 1+ (NEGATIVE); URINE UROBILINOGEN 0.2 mg/dL (0.2-1.0)
[2023-08-09 20:28] LABS: EPI CELLS 5 /uL (0-25.1); URINE BACTERIA 300 /uL (0-1359)
== END 2023-08-09 19:27 ==
LOC: JER 13:12
PROC: 0H9BXZZ Drainage of Right Upper Arm Skin, External Approach (ICD-10-PCS; principal; 2023-08-09)
PROC: 3E03329 Introduction of Other Anti-infective into Peripheral Vein, Percutaneous Approach (ICD-10-PCS; 2023-08-09)
PROC: 3E033NZ Introduction of Analgesics, Hypnotics, Sedatives into Peripheral Vein, Percutaneous Approach (ICD-10-PCS; 2023-08-09)
DX: L02.413 Cutaneous abscess of right upper limb (principal)
CPT/HCPCS: 36415; 80053; 81003; 85025; 85610; 86850; 86900; 86901; 87040; 87086; 87186; 99284-25; J0131; J0875

== ENCOUNTER 2023-08-17 10:40 | Inpatient (IN) | payer OTHER ==
[2023-08-17] MEDS ORDERED: PIPERACILLIN/TAZOB 3.375 GM 3.375 GM/50 ML BAG IVPB ONE (12:47)
[2023-08-17 12:52] LABS: HEMATOCRIT 36.1 % (32.4-45.2); MCH 27.3 pg (25.7-33.7); MCHC 33.3 g/dl (32.0-36.0); MEAN CELL VOLUME 81.8 fl (80-96); MEAN PLT VOLUME 7.9 fl (7.5-11.1); PLATELET COUNT 257 10^3/uL (134-434); RBC 4.42 M/mm3 (3.60-5.2); RDW 17.1 % (11.6-15.6); WHITE BLOOD COUNT 9.3 K/mm3 (4.0-10.0)
[2023-08-17 13:00] LABS: INR 1.08 (0.83-1.09); PROTHROMBIN TIME (PATIENT) 12.2 SEC (9.7-13.0)
[2023-08-17] MEDS: PIPERACILLIN/TAZOB 3.375 GM 3.375 GM in DEXTROSE 5%-WATER - 50 ML IVPB ONE (13:00)
[2023-08-17 13:14] LABS: POTASSIUM 5.5 mmol/L (3.5-5.1)
[2023-08-17 13:15] LABS: CALCIUM 9.8 mg/dL (8.5-10.1)
[2023-08-17 13:16] LABS: ALBUMIN 3.5 g/dl (3.4-5.0); BLOOD UREA NITROGEN 46.7 mg/dL (7-18)
[2023-08-17 13:19] LABS: CREATININE 1.2 mg/dL (0.55-1.3)
[2023-08-17 13:21] LABS: BILIRUBIN,TOTAL 0.4 mg/dL (0.2-1); TOT PROT 8.2 g/dl (6.4-8.2)
[2023-08-17] MEDS ORDERED: ACETAMINOPHEN 1000 MG/100 ML BAG IVPB PRN (15:08)
[2023-08-17 15:57] VITALS: BMI 26.6
[2023-08-17] MEDS: VANCOMYCIN PREMIX 1.5 GM 1,500 MG/300 ML BAG IVPB ONE (17:05)
[2023-08-17] MEDS: SODIUM CHLORIDE 1,000 ML IV SCH (17:05)
[2023-08-17] MEDS: INSULIN ASPART SLIDING SCALE (NOVOLOG) 1 VIAL SQ SCH ×2 (17:20→21:58)
[2023-08-17] MEDS ORDERED: IPRATROPIUM BR 0.02% 0.5 MG/2.5 ML VIAL.NEB. NEB SCH (18:00)
[2023-08-17] MEDS: SODIUM ZIRCONIUM CYCLOSILICATE (LOKELMA) 5 GM PACKET PO SCH (18:23)
[2023-08-17] MEDS: ALBUTEROL SO4 2.5/IPRATROPIUM 0.5 INH SOL 3 ML VIAL.NEB. NEB SCH (19:42)
[2023-08-17] MEDS: PIPERACILLIN/TAZOB 3.375 GM 3.375 GM in DEXTROSE 5%-WATER - 50 ML IVPB SCH (20:12)
[2023-08-17] MEDS: NYSTATIN POWDER 100,000 UNITS/GM - 15 GM TOPICAL POWDER TP SCH (21:59)
[2023-08-17] MEDS ORDERED: INSULIN ASPART SLIDING SCALE (NOVOLOG) 1 VIAL SQ SCH (22:00)
[2023-08-17] MEDS: MIRTAZAPINE 15 MG TABLET (FP) PO SCH (22:53)
[2023-08-18] MEDS: INSULIN (LEVEMIR) 100 UNITS/ML UNITS SQ SCH (06:07)
[2023-08-18] MEDS: LEVOTHYROXINE NA 50 MCG TABLET (FP) PO SCH (06:10)
[2023-08-18] MEDS ORDERED: INSULIN (LEVEMIR) 100 UNITS/ML UNITS SQ ONE (06:54)
[2023-08-18 07:50] LABS: HEMATOCRIT 32.6 % (32.4-45.2); HEMOGLOBIN 10.6 GM/dL (10.7-15.3); MCH 26.9 pg (25.7-33.7); MCHC 32.6 g/dl (32.0-36.0); MEAN CELL VOLUME 82.5 fl (80-96); MEAN PLT VOLUME 7.6 fl (7.5-11.1); PLATELET COUNT 202 10^3/uL (134-434); RBC 3.96 M/mm3 (3.60-5.2); RDW 16.4 % (11.6-15.6); WHITE BLOOD COUNT 7.4 K/mm3 (4.0-10.0)
[2023-08-18 08:13] LABS: POTASSIUM 4.9 mmol/L (3.5-5.1)
[2023-08-18] MEDS: FAMOTIDINE 10 MG TABLET PO SCH (09:19)
[2023-08-18] MEDS: ASCORBIC ACID 500 MG TABLET (FP) PO SCH (09:19)
[2023-08-18] MEDS: FOLIC ACID 1 MG TABLET (FP) PO SCH (09:19)
[2023-08-18] MEDS: MULTIVITAMINS (DAILY MVI) TABLET (FP) PO SCH (09:19)
[2023-08-18] MEDS: ANASTROZOLE 1 MG TABLET PO SCH (09:20)
[2023-08-18] MEDS: ENOXAPARIN NA (PORCINE) 40 MG/0.4 ML DISP.SYRIN SQ SCH (09:21)
[2023-08-18 09:36] LABS: ALBUMIN 2.8 g/dl (3.4-5.0); BILIRUBIN,TOTAL 0.5 mg/dL (0.2-1); BLOOD UREA NITROGEN 43.8 mg/dL (7-18); CALCIUM 9.5 mg/dL (8.5-10.1); CREATININE 1.2 mg/dL (0.55-1.3); TOT PROT 6.7 g/dl (6.4-8.2)
[2023-08-18] MEDS: PIPERACILLIN/TAZOB 3.375 GM 3.375 GM in DEXTROSE 5%-WATER - 50 ML IVPB SCH (10:50)
[2023-08-18 11:13] LABS: ERYTHROCYTE SEDIMENTATION RATE 57 mm/hr (0-30)
[2023-08-18] MEDS: FENOFIBRIC ACID 135 MG CAP PO SCH (12:02)
[2023-08-18] MEDS ORDERED: GENTAMICIN SO4 80 MG/2 ML VIAL ONE (15:03)
[2023-08-18] MEDS ORDERED: MIDAZOLAM HCL 2 MG/2 ML SINGLE DOSE VIAL ONE (16:06)
[2023-08-18] MEDS ORDERED: FENTANYL CITRATE/PF 50 MCG/ML VIAL ONE ×3 (16:06→17:38)
[2023-08-18] MEDS: GENTAMICIN SO4 80 MG/2 ML VIAL IVPB ONE (16:55)
[2023-08-18] MEDS: VANCOMYCIN 500 MG VIAL (RESTRICTED TO ID ONLY) IVPB ONE (16:55)
[2023-08-18] MEDS ORDERED: ONDANSETRON 4 MG/2 ML VIAL IVPUSH PRN ×2 (17:25→17:39)
[2023-08-18] MEDS ORDERED: VANCOMYCIN/WATER 1250 MG 1,250 MG/250 ML BAG IVPB SCH (18:00)
[2023-08-18] MEDS: SODIUM CHLORIDE 1,000 ML IV SCH (18:15)
[2023-08-18] MEDS: LACTATED RINGERS SOLUTION 1,000 ML IV SCH ×2 (18:27→18:28)
[2023-08-18] MEDS: VANCOMYCIN/WATER 1250 MG 1,250 MG/250 ML BAG IVPB SCH (18:30)
[2023-08-18] MEDS: ALBUTEROL SO4 2.5/IPRATROPIUM 0.5 INH SOL 3 ML VIAL.NEB. NEB SCH (19:20)
[2023-08-18] MEDS: MIRTAZAPINE 15 MG TABLET (FP) PO SCH (21:47)
[2023-08-18] MEDS: NYSTATIN POWDER 100,000 UNITS/GM - 15 GM TOPICAL POWDER TP SCH (21:49)
[2023-08-18] MEDS ORDERED: INSULIN (NOVOLOG) ASPART 100 UNITS/ML 10ML VIAL ONE (21:53)
[2023-08-18] MEDS: INSULIN ASPART SLIDING SCALE (NOVOLOG) 1 VIAL SQ SCH (21:56)
[2023-08-19] MEDS: LEVOTHYROXINE NA 50 MCG TABLET (FP) PO SCH (06:33)
[2023-08-19] MEDS: INSULIN (LEVEMIR) 100 UNITS/ML UNITS SQ SCH (06:42)
[2023-08-19 08:49] LABS: BASO % 0.5 % (0-2.0); EOS % 2.2 % (0-4.5); HEMATOCRIT 32.2 % (32.4-45.2); HEMOGLOBIN 10.8 GM/dL (10.7-15.3); LYMPH % 32.3 % (8-40); MCH 27.5 pg (25.7-33.7); MCHC 33.5 g/dl (32.0-36.0); MEAN PLT VOLUME 7.4 fl (7.5-11.1); MONO % 4.6 % (3.8-10.2); NEUT % 60.4 % (42.8-82.8); PLATELET COUNT 187 10^3/uL (134-434); RBC 3.93 M/mm3 (3.60-5.2); RDW 16.8 % (11.6-15.6); WHITE BLOOD COUNT 6.7 K/mm3 (4.0-10.0)
[2023-08-19 09:08] LABS: POTASSIUM 5.2 mmol/L (3.5-5.1)
[2023-08-19 09:11] LABS: ALBUMIN 2.8 g/dl (3.4-5.0); CALCIUM 8.8 mg/dL (8.5-10.1); MAGNESIUM 1.6 mg/dL (1.8-2.4)
[2023-08-19 09:16] LABS: BILIRUBIN,TOTAL 0.7 mg/dL (0.2-1); TOT PROT 6.7 g/dl (6.4-8.2)
[2023-08-19] MEDS: FENOFIBRIC ACID 135 MG CAP PO SCH (09:32)
[2023-08-19] MEDS: FOLIC ACID 1 MG TABLET (FP) PO SCH (09:32)
[2023-08-19] MEDS: MULTIVITAMINS (DAILY MVI) TABLET (FP) PO SCH (09:32)
[2023-08-19] MEDS: ASCORBIC ACID 500 MG TABLET (FP) PO SCH (09:32)
[2023-08-19] MEDS: FAMOTIDINE 10 MG TABLET PO SCH (09:32)
[2023-08-19] MEDS: ENOXAPARIN NA (PORCINE) 40 MG/0.4 ML DISP.SYRIN SQ SCH (09:33)
[2023-08-19] MEDS: ANASTROZOLE 1 MG TABLET PO SCH (09:33)
[2023-08-19] MEDS ORDERED: INSULIN (NOVOLOG) ASPART 100 UNITS/ML 10ML VIAL ONE (11:56)
[2023-08-19] MEDS: metoPROLOL SUCCINATE 25 MG TAB.SR.24H (FP) PO SCH (14:14)
[2023-08-19] MEDS ORDERED: INSULIN (LEVEMIR) 100 UNITS/ML UNITS SQ ONE (17:48)
[2023-08-19] MEDS: INSULIN ASPART SLIDING SCALE (NOVOLOG) 1 VIAL SQ SCH (17:59)
[2023-08-19] MEDS: SODIUM ZIRCONIUM CYCLOSILICATE (LOKELMA) 10 GM PACKET PO SCH (23:01)
[2023-08-20] MEDS ORDERED: INSULIN (NOVOLOG) ASPART 100 UNITS/ML 10ML VIAL ONE ×3 (06:06→21:22)
[2023-08-20 08:46] LABS: BASO % 0.5 % (0-2.0); EOS % 2.6 % (0-4.5); HEMOGLOBIN 10.8 GM/dL (10.7-15.3); MCH 26.8 pg (25.7-33.7); MCHC 32.7 g/dl (32.0-36.0); MEAN PLT VOLUME 7.4 fl (7.5-11.1); MONO % 4.8 % (3.8-10.2); NEUT % 55.1 % (42.8-82.8); PLATELET COUNT 179 10^3/uL (134-434); RBC 4.03 M/mm3 (3.60-5.2); RDW 16.4 % (11.6-15.6); WHITE BLOOD COUNT 5.6 K/mm3 (4.0-10.0)
[2023-08-20 08:53] LABS: POTASSIUM 4.6 mmol/L (3.5-5.1)
[2023-08-20 08:59] LABS: CALCIUM 9.4 mg/dL (8.5-10.1)
[2023-08-20 09:00] LABS: ALBUMIN 2.8 g/dl (3.4-5.0); MAGNESIUM 1.4 mg/dL (1.8-2.4)
[2023-08-20 09:03] LABS: CREATININE 0.9 mg/dL (0.55-1.3)
[2023-08-20 09:04] LABS: TOT PROT 6.8 g/dl (6.4-8.2)
[2023-08-20 09:05] LABS: BILIRUBIN,TOTAL 0.7 mg/dL (0.2-1)
[2023-08-20] MEDS: metoPROLOL SUCCINATE 25 MG TAB.SR.24H (FP) PO SCH (10:10)
[2023-08-20] MEDS: MAGNESIUM 2GM/50ML STERILE WATER IVPB IVPB ONE (10:10)
[2023-08-20] MEDS: MAGNESIUM OXIDE 400 MG TABLET (FP) PO ONE (10:11)
[2023-08-20] MEDS ORDERED: INSULIN (LEVEMIR) 100 UNITS/ML UNITS SQ ONE (17:43)
[2023-08-21] MEDS ORDERED: INSULIN (NOVOLOG) ASPART 100 UNITS/ML 10ML VIAL ONE ×4 (06:47→21:20)
[2023-08-21 09:00] LABS: POTASSIUM 4.4 mmol/L (3.5-5.1)
[2023-08-21 09:01] LABS: BASO % 0.8 % (0-2.0); HEMOGLOBIN 10.8 GM/dL (10.7-15.3); LYMPH % 35.5 % (8-40); MCH 27.2 pg (25.7-33.7); MCHC 32.8 g/dl (32.0-36.0); MEAN CELL VOLUME 82.8 fl (80-96); MEAN PLT VOLUME 7.5 fl (7.5-11.1); MONO % 5.7 % (3.8-10.2); PLATELET COUNT 170 10^3/uL (134-434); RBC 3.99 M/mm3 (3.60-5.2); RDW 16.7 % (11.6-15.6); WHITE BLOOD COUNT 5.3 K/mm3 (4.0-10.0)
[2023-08-21 09:05] LABS: ALBUMIN 2.9 g/dl (3.4-5.0); BLOOD UREA NITROGEN 18.4 mg/dL (7-18); CALCIUM 9.1 mg/dL (8.5-10.1); MAGNESIUM 1.8 mg/dL (1.8-2.4)
[2023-08-21 09:08] LABS: CREATININE 0.9 mg/dL (0.55-1.3)
[2023-08-21 09:09] LABS: BILIRUBIN,TOTAL 0.7 mg/dL (0.2-1); TOT PROT 6.8 g/dl (6.4-8.2)
[2023-08-21] MEDS ORDERED: INSULIN (LEVEMIR) 100 UNITS/ML UNITS SQ ONE (17:48)
[2023-08-22] MEDS ORDERED: INSULIN (NOVOLOG) ASPART 100 UNITS/ML 10ML VIAL ONE ×3 (06:15→21:02)
[2023-08-22] MEDS: INSULIN ASPART SLIDING SCALE (NOVOLOG) 1 VIAL SQ SCH (17:17)
[2023-08-22] MEDS: INSULIN (LEVEMIR) 100 UNITS/ML UNITS SQ SCH (17:20)
[2023-08-23] MEDS ORDERED: INSULIN (NOVOLOG) ASPART 100 UNITS/ML 10ML VIAL ONE (06:23)
[2023-08-24 00:02] VITALS: RESP 18
[2023-08-24] MEDS ORDERED: INSULIN (NOVOLOG) ASPART 100 UNITS/ML 10ML VIAL ONE ×2 (06:52→12:08)
[2023-08-24 08:58] LABS: BASO % 0.7 % (0-2.0); EOS % 2.3 % (0-4.5); HEMATOCRIT 31.7 % (32.4-45.2); HEMOGLOBIN 10.6 GM/dL (10.7-15.3); LYMPH % 40.4 % (8-40); MCH 27.8 pg (25.7-33.7); MCHC 33.6 g/dl (32.0-36.0); MEAN CELL VOLUME 82.7 fl (80-96); MONO % 7.7 % (3.8-10.2); NEUT % 48.9 % (42.8-82.8); PLATELET COUNT 181 10^3/uL (134-434); RBC 3.83 M/mm3 (3.60-5.2); RDW 16.9 % (11.6-15.6); WHITE BLOOD COUNT 5.9 K/mm3 (4.0-10.0)
[2023-08-24 09:16] LABS: POTASSIUM 3.8 mmol/L (3.5-5.1)
[2023-08-24 09:20] LABS: CALCIUM 8.9 mg/dL (8.5-10.1)
[2023-08-24 09:21] LABS: ALBUMIN 2.8 g/dl (3.4-5.0); BLOOD UREA NITROGEN 25.8 mg/dL (7-18); MAGNESIUM 1.8 mg/dL (1.8-2.4)
[2023-08-24 09:25] LABS: BILIRUBIN,TOTAL 0.6 mg/dL (0.2-1); TOT PROT 6.9 g/dl (6.4-8.2)
[2023-08-25 05:58] VITALS: BP 153/60; PULSE 63; TEMP 97.8
[2023-08-25 08:09] LABS: BASO % 0.9 % (0-2.0); EOS % 2.6 % (0-4.5); HEMOGLOBIN 10.8 GM/dL (10.7-15.3); LYMPH % 41.7 % (8-40); MCHC 32.6 g/dl (32.0-36.0); MEAN CELL VOLUME 82.8 fl (80-96); MEAN PLT VOLUME 7.9 fl (7.5-11.1); MONO % 6.5 % (3.8-10.2); NEUT % 48.3 % (42.8-82.8); PLATELET COUNT 185 10^3/uL (134-434); RBC 3.99 M/mm3 (3.60-5.2); RDW 16.7 % (11.6-15.6); WHITE BLOOD COUNT 5.3 K/mm3 (4.0-10.0)
[2023-08-25 08:23] LABS: POTASSIUM 3.5 mmol/L (3.5-5.1)
[2023-08-25 08:25] LABS: ALBUMIN 2.8 g/dl (3.4-5.0); MAGNESIUM 1.7 mg/dL (1.8-2.4)
[2023-08-25 08:28] LABS: CREATININE 0.9 mg/dL (0.55-1.3)
[2023-08-25 08:30] LABS: BILIRUBIN,TOTAL 0.6 mg/dL (0.2-1); TOT PROT 6.8 g/dl (6.4-8.2)
== END 2023-08-25 11:15 | DRG 603 ==
LOC: JER 10:40 → JERBED 14:10 → OBSVTOIN 15:09 → J8W 15:17
PROVIDERS: ADMIT Internal Medicine; ATTEND Nurse Practitioner Acute Care
PROC: 02HV33Z Insertion of Infusion Device into Superior Vena Cava, Percutaneous Approach (ICD-10-PCS; principal; 2023-08-24)
PROC: B548ZZA Ultrasonography of Superior Vena Cava, Guidance (ICD-10-PCS; 2023-08-24)
PROC: 0J9F0ZZ Drainage of Left Upper Arm Subcutaneous Tissue and Fascia, Open Approach (ICD-10-PCS; 2023-08-24)
DX: L02.413 Cutaneous abscess of right upper limb (principal); I50.32 Chronic diastolic (congestive) heart failure; F03.90 Unspecified dementia, unspecified severity, without behavioral disturbance, psychotic disturbance, mood disturbance, and anxiety; E78.5 Hyperlipidemia, unspecified; E11.9 Type 2 diabetes mellitus without complications; I25.10 Atherosclerotic heart disease of native coronary artery without angina pectoris; I11.0 Hypertensive heart disease with heart failure; E03.9 Hypothyroidism, unspecified; K21.9 Gastro-esophageal reflux disease without esophagitis; E87.5 Hyperkalemia; Z96.611 Presence of right artificial shoulder joint
CPT/HCPCS: 36415; 36569; 73060-TC-RT-FY; 80053; 82962; 83036; 83735; 85025; 85027; 85610; 85651; 86140; 86850; 86900; 86901; 87040; 87070; 87205; 87635; 93005; 93010; 94640; 94760; 97116-GP; 97162-GP; 99285-25; G0378; G0463-25; G0480

== ENCOUNTER 2023-10-01 17:38 | Inpatient (IN) | payer OTHER ==
[2023-10-01 21:04] LABS: BASO % 0.7 % (0-2.0); EOS % 2.2 % (0-4.5); HEMATOCRIT 37.7 % (32.4-45.2); HEMOGLOBIN 12.7 GM/dL (10.7-15.3); LYMPH % 36.3 % (8-40); MCH 27.4 pg (25.7-33.7); MCHC 33.7 g/dl (32.0-36.0); MEAN CELL VOLUME 81.3 fl (80-96); MEAN PLT VOLUME 8.3 fl (7.5-11.1); MONO % 6.1 % (3.8-10.2); NEUT % 54.7 % (42.8-82.8); PLATELET COUNT 233 10^3/uL (134-434); RBC 4.63 M/mm3 (3.60-5.2); RDW 15.7 % (11.6-15.6); WHITE BLOOD COUNT 8.7 K/mm3 (4.0-10.0)
[2023-10-01 21:27] LABS: POTASSIUM 5.2 mmol/L (3.5-5.1)
[2023-10-01 21:30] LABS: ALBUMIN 3.4 g/dl (3.4-5.0); CALCIUM 9.8 mg/dL (8.5-10.1)
[2023-10-01 21:31] LABS: BLOOD UREA NITROGEN 39.7 mg/dL (7-18)
[2023-10-01 21:34] LABS: CREATININE 1.2 mg/dL (0.55-1.3)
[2023-10-01 21:35] LABS: TOT PROT 7.7 g/dl (6.4-8.2)
[2023-10-01 21:36] LABS: BILIRUBIN,TOTAL 0.5 mg/dL (0.2-1)
[2023-10-01] MEDS: VANCOMYCIN/WATER 2 GRAMS 2,000 MG/400 ML PIGGYBACK IVPB ONE (21:51)
[2023-10-01 22:14] LABS: ERYTHROCYTE SEDIMENTATION RATE 58 mm/hr (0-30)
[2023-10-01] MEDS: VANCOMYCIN 2,000 MG in DEXTROSE 5%-WATER - 250 ML IVPB ONE (23:25)
[2023-10-01] MEDS ORDERED: ACETAMINOPHEN 325 MG TABLET (FP) ONE (23:27)
[2023-10-02] MEDS: ACETAMINOPHEN 325 MG TABLET (FP) PO ONE (00:34)
[2023-10-02] MEDS: VANCOMYCIN HCL 1,500 MG in DEXTROSE 5%-WATER - 250 ML IVPB SCH (03:41)
[2023-10-02 05:01] VITALS: BMI 24.1
[2023-10-02] MEDS ORDERED: ACETAMINOPHEN 1000 MG/100 ML BAG IVPB PRN ×2 (06:00→13:09)
[2023-10-02] MEDS: INSULIN ASPART SLIDING SCALE (NOVOLOG) 1 VIAL SQ SCH ×2 (07:16→19:09)
[2023-10-02 08:36] LABS: BASO % 0.5 % (0-2.0); EOS % 2.7 % (0-4.5); HEMATOCRIT 37.1 % (32.4-45.2); HEMOGLOBIN 12.1 GM/dL (10.7-15.3); LYMPH % 43.2 % (8-40); MCH 27.2 pg (25.7-33.7); MCHC 32.7 g/dl (32.0-36.0); MEAN CELL VOLUME 83.2 fl (80-96); MEAN PLT VOLUME 8.3 fl (7.5-11.1); MONO % 6.4 % (3.8-10.2); NEUT % 47.2 % (42.8-82.8); PLATELET COUNT 195 10^3/uL (134-434); RBC 4.46 M/mm3 (3.60-5.2); RDW 15.8 % (11.6-15.6); WHITE BLOOD COUNT 7.7 K/mm3 (4.0-10.0)
[2023-10-02 08:40] LABS: INR 1.07 (0.83-1.09); PROTHROMBIN TIME (PATIENT) 12.1 SEC (9.7-13.0)
[2023-10-02 08:42] LABS: ACTIVATED PTT 29.9 SECONDS (25.2-36.5)
[2023-10-02 08:54] LABS: POTASSIUM 5.1 mmol/L (3.5-5.1)
[2023-10-02 09:01] LABS: CALCIUM 9.6 mg/dL (8.5-10.1)
[2023-10-02 09:02] LABS: BLOOD UREA NITROGEN 49.3 mg/dL (7-18); MAGNESIUM 1.7 mg/dL (1.8-2.4)
[2023-10-02 09:05] LABS: CREATININE 1.5 mg/dL (0.55-1.3)
[2023-10-02 09:06] LABS: PHOSPHOROUS 4.9 mg/dL (2.5-4.9)
[2023-10-02] MEDS ORDERED: VANCOMYCIN HCL 1,500 MG in DEXTROSE 5%-WATER - 250 ML IVPB SCH (10:00)
[2023-10-02] MEDS ORDERED: KETOROLAC TROMETHAMINE 15 MG/ML VIAL IVPUSH PRN ×2 (10:10→13:09)
[2023-10-02] MEDS: VANCOMYCIN PREMIX 1.5 GM 1,500 MG/300 ML BAG IVPB SCH (10:21)
[2023-10-02] MEDS: metoPROLOL SUCCINATE 25 MG TAB.SR.24H (FP) PO SCH (10:28)
[2023-10-02] MEDS: FENOFIBRIC ACID 135 MG CAP PO SCH (10:29)
[2023-10-02] MEDS: ANASTROZOLE 1 MG TABLET PO SCH (10:29)
[2023-10-02] MEDS: FAMOTIDINE 10 MG TABLET PO SCH (10:29)
[2023-10-02] MEDS ORDERED: SUCCINYLCHOLINE CHLORIDE 200 MG/10 ML SYRINGE ONE (11:38)
[2023-10-02] MEDS ORDERED: LIDOCAINE HCL/PF 2% SDV 5ML VIAL ONE (11:38)
[2023-10-02] MEDS ORDERED: PROPOFOL 20 ML ONE (11:38)
[2023-10-02] MEDS ORDERED: VANCOMYCIN 1,000 MG VIAL (RESTRICTED TO ID ONLY) ONE (11:50)
[2023-10-02] MEDS ORDERED: GENTAMICIN SO4 80 MG/2 ML VIAL ONE (11:51)
[2023-10-02] MEDS: VANCOMYCIN 1,000 MG VIAL (RESTRICTED TO ID ONLY) IVPB ONE (12:54)
[2023-10-02] MEDS: CEFEPIME 1 GM in DEXTROSE 5%-WATER 100 ML IVPB SCH ×2 (13:30→13:36)
[2023-10-02] MEDS ORDERED: ONDANSETRON 4 MG/2 ML VIAL ONE (13:53)
[2023-10-02] MEDS: SODIUM CHLORIDE 0.45% 1,000 ML IV SCH (13:55)
[2023-10-02] MEDS: ONDANSETRON 4 MG/2 ML VIAL IVPUSH PRN (13:56)
[2023-10-02] MEDS ORDERED: NYSTATIN POWDER 100,000 UNITS/GM - 15 GM TOPICAL POWDER TP SCH (14:00)
[2023-10-02] MEDS: MAGNESIUM OXIDE 400 MG TABLET (FP) PO ONE ×2 (17:20→17:26)
[2023-10-02] MEDS: NYSTATIN POWDER 100,000 UNITS/GM - 15 GM TOPICAL POWDER TP SCH (17:20)
[2023-10-02] MEDS ORDERED: MIRTAZAPINE 15 MG TABLET (FP) PO SCH (22:00)
[2023-10-02] MEDS ORDERED: CEFEPIME HCL 1 GM VIAL (RESTRICTED TO ID) IVPB SCH (22:00)
[2023-10-02] MEDS: MIRTAZAPINE 15 MG TABLET (FP) PO SCH (22:18)
[2023-10-03] MEDS ORDERED: ACETAMINOPHEN 325 MG TABLET (FP) PO PRN (06:00)
[2023-10-03] MEDS: LEVOTHYROXINE NA 50 MCG TABLET (FP) PO SCH (06:27)
[2023-10-03] MEDS ORDERED: LEVOTHYROXINE NA 50 MCG TABLET (FP) PO SCH (07:00)
[2023-10-03 09:40] LABS: POTASSIUM 5.2 mmol/L (3.5-5.1)
[2023-10-03 09:49] LABS: ALBUMIN 2.8 g/dl (3.4-5.0); BLOOD UREA NITROGEN 45.6 mg/dL (7-18)
[2023-10-03 09:52] LABS: CREATININE 1.5 mg/dL (0.55-1.3)
[2023-10-03 09:53] LABS: TOT PROT 6.5 g/dl (6.4-8.2)
[2023-10-03] MEDS: FENOFIBRIC ACID 135 MG CAP PO SCH (10:24)
[2023-10-03] MEDS: ANASTROZOLE 1 MG TABLET PO SCH (10:24)
[2023-10-03] MEDS: FAMOTIDINE 10 MG TABLET PO SCH (10:25)
[2023-10-03] MEDS: metoPROLOL SUCCINATE 25 MG TAB.SR.24H (FP) PO SCH (10:25)
[2023-10-03] MEDS: SODIUM CHLORIDE 0.45% 1,000 ML IV SCH (13:55)
[2023-10-03] MEDS: SODIUM ZIRCONIUM CYCLOSILICATE (LOKELMA) 5 GM PACKET PO SCH (13:56)
[2023-10-04] MEDS: VANCOMYCIN HCL 1,500 MG in DEXTROSE 5%-WATER - 250 ML IVPB SCH (08:07)
[2023-10-04] MEDS: LACTATED RINGERS SOLUTION 1,000 ML IV SCH (08:08)
[2023-10-04 09:46] LABS: HEMATOCRIT 32.4 % (32.4-45.2); HEMOGLOBIN 10.9 GM/dL (10.7-15.3); MCH 27.8 pg (25.7-33.7); MCHC 33.6 g/dl (32.0-36.0); MEAN CELL VOLUME 82.6 fl (80-96); MEAN PLT VOLUME 8.1 fl (7.5-11.1); PLATELET COUNT 163 10^3/uL (134-434); RBC 3.92 M/mm3 (3.60-5.2); RDW 15.6 % (11.6-15.6); WHITE BLOOD COUNT 5.5 K/mm3 (4.0-10.0)
[2023-10-04 10:33] LABS: ALBUMIN 2.8 g/dl (3.4-5.0); BLOOD UREA NITROGEN 32.6 mg/dL (7-18); CALCIUM 9.2 mg/dL (8.5-10.1); CREATININE 1.2 mg/dL (0.55-1.3); POTASSIUM 4.9 mmol/L (3.5-5.1)
[2023-10-04 10:34] LABS: BILIRUBIN,TOTAL 0.5 mg/dL (0.2-1)
[2023-10-04 10:40] LABS: TOT PROT 6.6 g/dl (6.4-8.2)
[2023-10-04] MEDS: ACETAMINOPHEN 325 MG TABLET (FP) PO PRN (22:26)
[2023-10-05] MEDS: VANCOMYCIN/WATER 1250 MG 1,250 MG/250 ML BAG IVPB SCH (11:07)
[2023-10-05] MEDS ORDERED: INSULIN ASPART SLIDING SCALE (NOVOLOG) 1 VIAL SQ ONE (20:33)
[2023-10-06] MEDS: LORazepam 2 MG/ML SDV VIAL IVPUSH ONE (15:10)
[2023-10-07 01:25] VITALS: BP 133/61; PULSE 51; RESP 18; TEMP 97.9
== END 2023-10-07 00:45 | DRG 603 ==
LOC: JER 17:38 → JERBED 21:50 → J8W 10-02 02:44 → OBSVTOIN 10-03 13:34
PROVIDERS: ADMIT Internal Medicine; ATTEND Family Medicine
PROC: 0H9BXZX Drainage of Right Upper Arm Skin, External Approach, Diagnostic (ICD-10-PCS; 2023-10-02)
PROC: 0H9BXZZ Drainage of Right Upper Arm Skin, External Approach (ICD-10-PCS; principal; 2023-10-02 12:00)
PROC: 05HB33Z Insertion of Infusion Device into Right Basilic Vein, Percutaneous Approach (ICD-10-PCS; 2023-10-06)
DX: L02.413 Cutaneous abscess of right upper limb (principal); I50.32 Chronic diastolic (congestive) heart failure; N17.9 Acute kidney failure, unspecified; L03.90 Cellulitis, unspecified; E87.1 Hypo-osmolality and hyponatremia; F03.90 Unspecified dementia, unspecified severity, without behavioral disturbance, psychotic disturbance, mood disturbance, and anxiety; E03.9 Hypothyroidism, unspecified; J45.909 Unspecified asthma, uncomplicated; J44.9 Chronic obstructive pulmonary disease, unspecified; I11.0 Hypertensive heart disease with heart failure; E11.65 Type 2 diabetes mellitus with hyperglycemia; E78.5 Hyperlipidemia, unspecified; I25.10 Atherosclerotic heart disease of native coronary artery without angina pectoris; N61.1 Abscess of the breast and nipple; K57.90 Diverticulosis of intestine, part unspecified, without perforation or abscess without bleeding
CPT/HCPCS: 36415; 71046-TC-FY; 73030-TC-RT-FY; 80048; 80053; 82962; 83735; 84100; 85025; 85027; 85610; 85651; 85730; 86140; 87040; 87070; 87102; 87116; 87205; 87206; 87210; 87635; 93005; 93010; 94760; 99285-25; G0378; G0480

== ENCOUNTER 2023-10-22 16:10 | Inpatient (IN) | payer OTHER ==
[2023-10-22 17:09] VITALS: BMI 24.7
[2023-10-22 17:42] LABS: VENOUS BASE EXCESS -0.3 mmol/L (-2-2); VENOUS PCO2 44.2 mmHg (38-52); VENOUS PH 7.372 (7.310-7.410)
[2023-10-22 17:44] LABS: BASO % 0.5 % (0-2.0); EOS % 0.7 % (0-4.5); HEMATOCRIT 32.7 % (32.4-45.2); LYMPH % 16.1 % (8-40); MCH 27.3 pg (25.7-33.7); MCHC 33.6 g/dl (32.0-36.0); MEAN CELL VOLUME 81.4 fl (80-96); MEAN PLT VOLUME 7.9 fl (7.5-11.1); MONO % 6.3 % (3.8-10.2); NEUT % 76.4 % (42.8-82.8); PLATELET COUNT 160 10^3/uL (134-434); RBC 4.02 M/mm3 (3.60-5.2); RDW 15.6 % (11.6-15.6); WHITE BLOOD COUNT 8.1 K/mm3 (4.0-10.0)
[2023-10-22 17:47] LABS: INR 1.23 (0.83-1.09); PROTHROMBIN TIME (PATIENT) 14.1 SEC (9.7-13.0)
[2023-10-22 17:50] LABS: ACTIVATED PTT 27.7 SECONDS (25.2-36.5)
[2023-10-22] MEDS ORDERED: ACETAMINOPHEN INJECTION 100 ML IVPB ONE (17:54)
[2023-10-22] MEDS: SODIUM CHLORIDE 0.9% 500 ML INFUS.BAG IV ONE (17:58)
[2023-10-22] MEDS: ACETAMINOPHEN 1000 MG/100 ML BAG IVPB ONE (17:58)
[2023-10-22 18:25] LABS: ALBUMIN 2.6 g/dl (3.4-5.0); BILIRUBIN,TOTAL 0.7 mg/dL (0.2-1); BLOOD UREA NITROGEN 28.5 mg/dL (7-18); CALCIUM 8.7 mg/dL (8.5-10.1); CREATININE 1.9 mg/dL (0.55-1.3); POTASSIUM 3.6 mmol/L (3.5-5.1); TOT PROT 6.6 g/dl (6.4-8.2)
[2023-10-22 20:46] LABS: EPI CELLS >36 /uL (0-25.1); HYALINE CASTS 537 /uL (0-3.1); PH,URINE 5.5 (5.0-8.0); URINE APPEARANCE TURBID; URINE BACTERIA 4327 /uL (0-1359); URINE BILIRUBIN NEGATIVE (NEGATIVE); URINE COLOR YELLOW; URINE GLUCOSE (UA) 2+ (NEGATIVE); URINE KETONE NEGATIVE (NEGATIVE); URINE LEUK ESTERASE 3+ (NEGATIVE); URINE NITRITE POSITIVE (NEGATIVE); URINE PROTEIN 3+ (NEGATIVE); URINE WBC 37085 /uL (0-25.8)
[2023-10-22] MEDS ORDERED: ERTAPENEM SODIUM 1 GM VIAL ONE (21:17)
[2023-10-22] MEDS: ERTAPENEM SODIUM 1 GM in SODIUM CHLORIDE 50 ML IVPB ONE (21:34)
[2023-10-22] MEDS: LINEZOLID 600 MG PREMIX BAG 600 MG in PREMIX 300 IV ONE (22:31)
[2023-10-22 23:49] LABS: URINE RBC 966.6 /uL (0-23.9); YEAST PRESENT (NEGATIVE)
[2023-10-23 06:46] LABS: BASO % 0.3 % (0-2.0); EOS % 0.3 % (0-4.5); HEMATOCRIT 33.2 % (32.4-45.2); LYMPH % 14.2 % (8-40); MCH 27.2 pg (25.7-33.7); MCHC 33.2 g/dl (32.0-36.0); MEAN CELL VOLUME 81.9 fl (80-96); MONO % 5.1 % (3.8-10.2); NEUT % 80.1 % (42.8-82.8); PLATELET COUNT 151 10^3/uL (134-434); RBC 4.06 M/mm3 (3.60-5.2); RDW 15.9 % (11.6-15.6); WHITE BLOOD COUNT 6.7 K/mm3 (4.0-10.0)
[2023-10-23 07:03] LABS: POTASSIUM 3.8 mmol/L (3.5-5.1)
[2023-10-23 07:06] LABS: BLOOD UREA NITROGEN 26.3 mg/dL (7-18); CALCIUM 8.4 mg/dL (8.5-10.1)
[2023-10-23 07:10] LABS: CREATININE 1.7 mg/dL (0.55-1.3)
[2023-10-23] MEDS: ALBUTEROL SO4 2.5/IPRATROPIUM 0.5 INH SOL 3 ML VIAL.NEB. NEB SCH (07:14)
[2023-10-23] MEDS ORDERED: LEVOTHYROXINE NA 50 MCG TABLET (FP) ONE (07:16)
[2023-10-23] MEDS ORDERED: metoPROLOL SUCCINATE 25 MG TAB.SR.24H (FP) PO ONE (07:16)
[2023-10-23] MEDS ORDERED: ALBUTEROL SO4 2.5/IPRATROPIUM 0.5 INH SOL 3 ML VIAL.NEB. NEB ONE ×2 (07:16→13:37)
[2023-10-23] MEDS: LEVOTHYROXINE NA 50 MCG TABLET (FP) PO SCH (07:21)
[2023-10-23] MEDS: metoPROLOL SUCCINATE 25 MG TAB.SR.24H (FP) PO ONE (07:21)
[2023-10-23] MEDS: INSULIN ASPART SLIDING SCALE (NOVOLOG) 1 VIAL SQ SCH (09:16)
[2023-10-23] MEDS ORDERED: ENOXAPARIN NA (PORCINE) 40 MG/0.4 ML DISP.SYRIN SQ ONE (09:21)
[2023-10-23] MEDS ORDERED: VANCOMYCIN 1 GRAM (PRE-DOCKED) 1,000 MG/250 ML BAG IVPB ONE (09:21)
[2023-10-23] MEDS ORDERED: FAMOTIDINE 10 MG TABLET ONE (09:21)
[2023-10-23] MEDS: FAMOTIDINE 10 MG TABLET PO SCH (09:40)
[2023-10-23] MEDS: ENOXAPARIN NA (PORCINE) 40 MG/0.4 ML DISP.SYRIN SQ SCH (09:40)
[2023-10-23] MEDS: ANASTROZOLE 1 MG TABLET PO SCH (11:45)
[2023-10-23] MEDS ORDERED: ACETAMINOPHEN 325 MG TABLET (FP) ONE (12:48)
[2023-10-23] MEDS: ACETAMINOPHEN 1000 MG/100 ML BAG IVPB PRN (13:00)
[2023-10-23] MEDS: VANCOMYCIN/WATER FOR INJ (PEG) 1,000 MG/200 ML BAG IVPB SCH (13:22)
[2023-10-23] MEDS: VANCOMYCIN 1,000 MG in DEXTROSE 5%-WATER - 250 ML IVPB SCH (17:20)
[2023-10-23] MEDS: MIRTAZAPINE 15 MG TABLET (FP) PO SCH (21:53)
[2023-10-23] MEDS: ERTAPENEM SODIUM 1 GM in SODIUM CHLORIDE 50 ML IVPB SCH (22:40)
[2023-10-24 09:13] LABS: BASO % 0.4 % (0-2.0); EOS % 0.7 % (0-4.5); HEMATOCRIT 31.6 % (32.4-45.2); HEMOGLOBIN 10.3 GM/dL (10.7-15.3); LYMPH % 34.3 % (8-40); MCH 26.7 pg (25.7-33.7); MCHC 32.7 g/dl (32.0-36.0); MEAN CELL VOLUME 81.6 fl (80-96); MEAN PLT VOLUME 7.8 fl (7.5-11.1); MONO % 7.4 % (3.8-10.2); NEUT % 57.2 % (42.8-82.8); PLATELET COUNT 166 10^3/uL (134-434); RBC 3.87 M/mm3 (3.60-5.2); RDW 15.7 % (11.6-15.6); WHITE BLOOD COUNT 5.9 K/mm3 (4.0-10.0)
[2023-10-24 09:47] LABS: POTASSIUM 3.3 mmol/L (3.5-5.1)
[2023-10-24 09:48] LABS: ALBUMIN 2.4 g/dl (3.4-5.0); BLOOD UREA NITROGEN 31.7 mg/dL (7-18); CALCIUM 8.4 mg/dL (8.5-10.1)
[2023-10-24 09:53] LABS: CREATININE 1.9 mg/dL (0.55-1.3)
[2023-10-24 09:54] LABS: BILIRUBIN,TOTAL 0.5 mg/dL (0.2-1); TOT PROT 6.4 g/dl (6.4-8.2)
[2023-10-24] MEDS: metoPROLOL SUCCINATE 25 MG TAB.SR.24H (FP) PO SCH (10:17)
[2023-10-25] MEDS: MULTIVITAMINS (DAILY MVI) TABLET (FP) PO SCH (14:10)
[2023-10-25] MEDS: ASCORBIC ACID 250 MG TABLET (FP) PO SCH (14:10)
[2023-10-25] MEDS: REMDESIVIR 200 MG in SODIUM CHLORIDE 250 ML IVPB ONE (17:20)
[2023-10-25] MEDS: INSULIN (LEVEMIR) 100 UNITS/ML UNITS SQ SCH (23:10)
[2023-10-26] MEDS: REMDESIVIR 100 MG in SODIUM CHLORIDE 250 ML IVPB SCH (09:56)
[2023-10-27] MEDS: VANCOMYCIN/WATER FOR INJ (PEG) 1,000 MG/200 ML BAG IVPB ONE (10:53)
[2023-10-27] MEDS: CASPOFUNGIN ACETATE 70 MG in SODIUM CHLORIDE 250 ML IVPB ONE (11:49)
[2023-10-28] MEDS: CASPOFUNGIN ACETATE 50 MG in SODIUM CHLORIDE 250 ML IVPB SCH (10:56)
[2023-10-28] MEDS: INSULIN (LEVEMIR) 100 UNITS/ML UNITS SQ SCH (22:54)
[2023-10-29 10:14] LABS: POTASSIUM 3.2 mmol/L (3.5-5.1)
[2023-10-29 10:19] LABS: CALCIUM 8.6 mg/dL (8.5-10.1)
[2023-10-29 10:20] LABS: ALBUMIN 2.2 g/dl (3.4-5.0); BLOOD UREA NITROGEN 35.8 mg/dL (7-18)
[2023-10-29 10:23] LABS: CREATININE 1.5 mg/dL (0.55-1.3)
[2023-10-29 10:24] LABS: BILIRUBIN,TOTAL 0.4 mg/dL (0.2-1); TOT PROT 6.2 g/dl (6.4-8.2)
[2023-10-29] MEDS: POTASSIUM CHLORIDE ORAL LIQUID 20 MEQ/15 ML PO ONE (12:11)
[2023-10-29] MEDS: VANCOMYCIN/WATER FOR INJ (PEG) 1,000 MG/200 ML BAG IVPB ONE (12:19)
[2023-10-30] MEDS: VANCOMYCIN/WATER FOR INJ (PEG) 1,000 MG/200 ML BAG IVPB SCH (12:36)
[2023-10-31 04:13] VITALS: RESP 18
[2023-10-31] MEDS: ACETAMINOPHEN 325 MG TABLET (FP) PO PRN (07:20)
[2023-10-31] MEDS ORDERED: INSULIN (LEVEMIR) 100 UNITS/ML UNITS SQ ONE (07:34)
[2023-10-31 09:15] LABS: BASO % 0.4 % (0-2.0); EOS % 2.3 % (0-4.5); HEMATOCRIT 30.4 % (32.4-45.2); HEMOGLOBIN 10.2 GM/dL (10.7-15.3); LYMPH % 29.4 % (8-40); MCH 26.4 pg (25.7-33.7); MCHC 33.5 g/dl (32.0-36.0); MEAN CELL VOLUME 78.9 fl (80-96); MEAN PLT VOLUME 7.8 fl (7.5-11.1); MONO % 5.2 % (3.8-10.2); NEUT % 62.7 % (42.8-82.8); PLATELET COUNT 277 10^3/uL (134-434); RBC 3.85 M/mm3 (3.60-5.2); RDW 15.7 % (11.6-15.6); WHITE BLOOD COUNT 7.2 K/mm3 (4.0-10.0)
[2023-10-31 09:41] LABS: POTASSIUM 3.5 mmol/L (3.5-5.1)
[2023-10-31 09:51] LABS: ALBUMIN 2.4 g/dl (3.4-5.0); BLOOD UREA NITROGEN 21.9 mg/dL (7-18); CALCIUM 8.5 mg/dL (8.5-10.1)
[2023-10-31 09:55] LABS: CREATININE 1.2 mg/dL (0.55-1.3)
[2023-10-31 09:56] LABS: BILIRUBIN,TOTAL 0.4 mg/dL (0.2-1); TOT PROT 6.5 g/dl (6.4-8.2)
[2023-10-31] MEDS: AMINO ACIDS/PROTEIN HYDROLYS 30 ML LIQUID.PKT PO SCH (18:51)
[2023-11-01 10:19] LABS: POTASSIUM 3.4 mmol/L (3.5-5.1)
[2023-11-01 10:20] LABS: BASO % 0.6 % (0-2.0); EOS % 2.5 % (0-4.5); HEMATOCRIT 30.4 % (32.4-45.2); HEMOGLOBIN 10.1 GM/dL (10.7-15.3); LYMPH % 34.7 % (8-40); MCH 26.6 pg (25.7-33.7); MCHC 33.1 g/dl (32.0-36.0); MEAN CELL VOLUME 80.5 fl (80-96); MEAN PLT VOLUME 7.7 fl (7.5-11.1); MONO % 6.4 % (3.8-10.2); NEUT % 55.8 % (42.8-82.8); PLATELET COUNT 273 10^3/uL (134-434); RBC 3.78 M/mm3 (3.60-5.2); RDW 15.5 % (11.6-15.6); WHITE BLOOD COUNT 6.5 K/mm3 (4.0-10.0)
[2023-11-01 10:21] LABS: ALBUMIN 2.3 g/dl (3.4-5.0); CALCIUM 8.4 mg/dL (8.5-10.1)
[2023-11-01 10:22] LABS: BLOOD UREA NITROGEN 23.8 mg/dL (7-18)
[2023-11-01 10:25] LABS: CREATININE 1.1 mg/dL (0.55-1.3)
[2023-11-01 10:26] LABS: BILIRUBIN,TOTAL 0.3 mg/dL (0.2-1); TOT PROT 6.2 g/dl (6.4-8.2)
[2023-11-01] MEDS: POTASSIUM CHLORIDE ORAL LIQUID 20 MEQ/15 ML PO ONE (17:57)
[2023-11-02 03:22] VITALS: TEMP 97.4
[2023-11-02 17:29] VITALS: BP 122/72; PULSE 70
== END 2023-11-02 18:00 | DRG 689 ==
LOC: JER 16:10 → JERBED 21:21 → J6S 10-23 17:23
PROVIDERS: ADMIT Internal Medicine; ATTEND Family Medicine
PROC: XW033E5 Introduction of Remdesivir Anti-infective into Peripheral Vein, Percutaneous Approach, New Technology Group 5 (ICD-10-PCS; principal; 2023-10-25)
DX: N39.0 Urinary tract infection, site not specified (principal); G93.41 Metabolic encephalopathy; U07.1 COVID-19; N17.9 Acute kidney failure, unspecified; I50.32 Chronic diastolic (congestive) heart failure; B49 Unspecified mycosis; I25.10 Atherosclerotic heart disease of native coronary artery without angina pectoris; E78.5 Hyperlipidemia, unspecified; I11.0 Hypertensive heart disease with heart failure; E11.9 Type 2 diabetes mellitus without complications; K21.9 Gastro-esophageal reflux disease without esophagitis; E03.9 Hypothyroidism, unspecified; F32.9 Major depressive disorder, single episode, unspecified; F41.9 Anxiety disorder, unspecified; F03.90 Unspecified dementia, unspecified severity, without behavioral disturbance, psychotic disturbance, mood disturbance, and anxiety; I87.2 Venous insufficiency (chronic) (peripheral)
CPT/HCPCS: 0241U-QW; 36415; 71045-TC-FY; 80048; 80053; 81003; 82803; 82962; 83605; 84484; 85025; 85610; 85730; 86850; 86900; 86901; 87040; 87086; 87106; 87186; 87635; 93005; 93010; 93306-TC; 93971-TC; 94640; 99285-25; G0480; J0131; J0248; J0637